=== PATIENT | female | born 1940 | race Caucasian/White ===

== ENCOUNTER 2020-07-28 09:08 | Outpatient (REF) | payer MEDICARE, SELFPAY ==
--- NOTE | 2020-07-28 09:32 | US_ITS ---
EXAMINATION: US VENOUS ULTRASOUND WITH DOPPLER LOWER EXTREMITY, LEFT CLINICAL INFORMATION: M79.662 - Pain in left lower leg. Injury late May region of mid calf with some palpable fullness. Assess for occult DVT. COMPARISON: None TECHNIQUE: Ultrasound of the deep veins is performed from the hip to the calf with compression sonography and color and pulse Doppler assessment. Spectral analysis with color-flow imaging is performed. FINDINGS: There is normal venous compression and respiratory variation and augmented flow. The visualized common femoral vein, superficial femoral vein, profunda femoral vein, popliteal vein, and the trifurcation region shows no evidence of deep venous thrombosis. There is no popliteal fossa cyst. No edema tracking in soft tissue planes. In the region of palpable fullness posterior mid calf, there is a isolated nonspecific cystic area only 3 x 2 mm of doubtful significance, possibly sequela from the recent injury. US/US venous duplex LE LT IMPRESSION: No DVT demonstrated in the left lower extremity.
== END 2020-07-28 09:09 | disposition home or self-care (01) ==
LOC: HO.HMGCX 09:08
PROVIDERS: PCP Internal Medicine; Visit Provider Nurse Practitioner Family
DX: M79.662 Pain in left lower leg (principal)
CPT/HCPCS: 93971

== ENCOUNTER → 2020-11-23 15:25 | Outpatient (BNVA) | payer MEDICARE, SELFPAY | PROVIDERS: PCP Internal Medicine; Visit Provider Obstetrics & Gynecology | DX: N90.7 Vulvar cyst (principal) | CPT/HCPCS: 99212 ==

== ENCOUNTER 2021-04-11 14:23 | Outpatient (REF) | payer MEDICARE, SELFPAY ==
[2021-04-11 16:54] LABS: Blood Urea Nitrogen 19 mg/dL (9-16); Estimated Glomerular Filt Rate > 60
== END 2021-04-11 14:24 | disposition home or self-care (01) ==
LOC: HO.HMGCLDS 14:23
PROVIDERS: PCP Internal Medicine; Visit Provider Internal Medicine
DX: N39.0 Urinary tract infection, site not specified (principal)
CPT/HCPCS: 36415; 82565; 84520

== ENCOUNTER 2021-05-17 11:06 | Outpatient (REF) | payer MEDICARE, SELFPAY ==
--- NOTE | ~2021-05-17 | MR_ITS ---
EXAMINATION: MR ABDOMEN WITHOUT AND WITH CONTRAST CLINICAL INFORMATION: Melanoma of the right eye. COMPARISON: Previous MRI April 2020, CT of the abdomen and pelvis March 2014 and ultrasound August 2019. TECHNIQUE: MR abdomen was performed without and with use of 6 mL intravenous Gadavist gadolinium contrast. Postcontrast images are performed in multiphase dynamic sequences. Imaging was performed in 3 planes. FINDINGS: LUNG BASES: The visualized lung bases are unremarkable. LIVER, GALLBLADDER, AND BILIARY TREE: There is slight signal loss in the liver on out of phase sequences suggestive of mild fatty infiltration. The liver is normal in size and shape. There are several small liver cysts, largest measuring 7 mm cyst in the medial segment of the left lobe of the liver that are stable. No other liver lesion is seen. The gallbladder has been removed. There is no intra or extrahepatic biliary duct dilatation. PANCREAS: There is a tiny cyst in the posterior body of the pancreas measuring 4 mm that is stable. The pancreas is otherwise unremarkable. The main pancreatic duct is normal in size. SPLEEN: Normal. ADRENAL GLANDS: Normal. KIDNEYS AND URETERS: There are two 1 cm cysts in the left kidney. The kidneys are otherwise unremarkable. GASTROINTESTINAL TRACT: The visualized small and large bowel is unremarkable. No bowel obstruction. No ascites or fluid collection. ABDOMINAL WALL: No significant hernia is appreciated. LYMPH NODES: No lymphadenopathy. VASCULAR: Unremarkable. OSSEOUS STRUCTURES: Marrow signal normal. MR/MR abdomen wo/w con IMPRESSION: Stable small cysts in the liver, pancreas and left kidney.
== END 2021-05-17 11:07 | disposition home or self-care (01) ==
LOC: HO.MRI 11:06
PROVIDERS: Visit Provider Internal Medicine
DX: C69.30 Malignant neoplasm of unspecified choroid (principal)
CPT/HCPCS: 74183; A9585

== ENCOUNTER → 2021-06-28 10:24 | Outpatient (BNVA) | payer MEDICARE, SELFPAY | PROVIDERS: PCP Internal Medicine; Visit Provider Internal Medicine | DX: M81.0 Age-related osteoporosis without current pathological fracture (principal); E04.2 Nontoxic multinodular goiter; E55.9 Vitamin D deficiency, unspecified | CPT/HCPCS: 99212 ==

== ENCOUNTER 2021-06-29 12:24 | Outpatient (REF) | payer MEDICARE, SELFPAY ==
[2021-06-29 14:11] LABS: Alanine Aminotransferase 13 U/L (0-31); Albumin Level 4.4 g/dL (3.5-5.0); Alkaline Phosphatase 57 U/L (39-117); Anion Gap 9 (12-20); Aspartate Amino Transferase 17 U/L (5-31); Bilirubin Total 0.6 mg/dL (0.0-1.0); Blood Urea Nitrogen 18 mg/dL (9-16); Calcium 9.5 mg/dL (8.4-10.2); Carbon Dioxide 29 mmol/L (22-29); Chloride 106 mmol/L (96-108); Estimated Glomerular Filt Rate > 60; Glucose Random 103 mg/dL (60-115); Phosphorus 3.7 mg/dL (2.7-4.5); Potassium 4.3 mmol/L (3.3-5.1); Sodium 140 mmol/L (135-145); Total Protein 6.8 g/dL (6.5-8.0)
[2021-06-29 14:35] LABS: Free T4 (Free Thyroxine) 0.98 ng/dL (0.71-1.85); Thyroid Stimulating Hormone 0.86 uIU/mL (0.32-4.0); Vitamin D 25-OH Total 44.8 ng/mL (>30)
[2021-06-30 09:32] LABS: Calcium (PTHI) 9.5 mg/dL (8.6-10.4); PTHI 29 pg/mL (14-64)
[2021-07-03 13:02] LABS: Prot Elec - Albumin 4.2 g/dL (3.8-4.8); Prot Elec - Alpha1 0.2 g/dL (0.2-0.3); Prot Elec - Alpha2 0.7 g/dL (0.5-0.9); Prot Elec - Beta 1 0.4 g/dL (0.4-0.6); Prot Elec - Beta 2 0.4 g/dL (0.2-0.5); Prot Elec - Gamma 0.7 g/dL (0.8-1.7); Prot Elec - Total Protein 6.7 g/dL (6.1-8.1)
[2021-07-04 15:42] LABS: Alkaline Phosphatase Bone 9.2 mcg/L (see note)
== END 2021-06-29 12:25 | disposition home or self-care (01) ==
LOC: HO.HMGCLDS 12:24
PROVIDERS: PCP Internal Medicine; Visit Provider Internal Medicine
DX: M81.0 Age-related osteoporosis without current pathological fracture (principal); E04.2 Nontoxic multinodular goiter; E55.9 Vitamin D deficiency, unspecified
CPT/HCPCS: 36415; 80053; 82306; 83970; 84075; 84100; 84165; 84439; 84443

== ENCOUNTER 2021-07-04 13:58 | Outpatient (REF) | payer MEDICARE, SELFPAY ==
[2021-07-04 17:22] LABS: Creatinine, mg/dL 42.67
[2021-07-04 18:23] LABS: Creatinine, 24Hr Urine 0.8 G/Day (1.0-2.0); Total Volume 24 Hour Urine 1900 mL
[2021-07-06 17:16] LABS: Calcium, 24 Hr Urine 336 mg/24 h; Calcium/Creatinine Ratio 377 mg/g creat (30-275); Creatinine 24Hr Urine 0.89 g/24 h (0.50-2.15)
[2021-07-11 16:41] LABS: N-Telopeptide 38 (see note); NTXCreaRU 44 mg/dL (20-275)
== END 2021-07-04 13:59 | disposition home or self-care (01) ==
LOC: HO.HMGCLNP 13:58
PROVIDERS: Visit Provider Internal Medicine
DX: M81.0 Age-related osteoporosis without current pathological fracture (principal)
CPT/HCPCS: 82340; 82523; 82570

== ENCOUNTER 2021-07-17 10:50 | Outpatient (REF) | payer MEDICARE, SELFPAY ==
[2021-07-17 14:15] LABS: Albumin Level 4.3 g/dL (3.5-5.0); Calcium 9.4 mg/dL (8.4-10.2); Phosphorus 3.5 mg/dL (2.7-4.5)
[2021-07-17 14:39] LABS: Vitamin D 25-OH Total 47.7 ng/mL (>30)
[2021-07-18 14:31] LABS: Calcium (PTHI) 9.2 mg/dL (8.6-10.4); PTHI 25 pg/mL (14-64)
== END 2021-07-17 10:51 | disposition home or self-care (01) ==
LOC: HO.HMGCLDS 10:50
PROVIDERS: PCP Internal Medicine; Visit Provider Internal Medicine
DX: M81.0 Age-related osteoporosis without current pathological fracture (principal); E55.9 Vitamin D deficiency, unspecified
CPT/HCPCS: 36415; 82040; 82306; 82310; 83970; 84100

== ENCOUNTER 2021-07-25 11:21 | Outpatient (REF) | payer MEDICARE, SELFPAY ==
--- NOTE | ~2021-07-25 | US_ITS ---
EXAMINATION: US THYROID CLINICAL INFORMATION: Multinodular goiter. COMPARISON: Ultrasound thyroid soft tissue neck 10/19/2019. TECHNIQUE: Linear transducer grayscale and color Doppler examination with attention to the region of the thyroid. FINDINGS: SIZE: Measurements of the thyroid lobes and nodules are given in sagittal, anteroposterior and transverse dimensions respectively. Right Thyroid Lobe: 5.1 x 1.9 x 1.7 cm, volume 8.6 mL. Previously 5.5 x 1.9 x 1.9 cm, volume 10.4 mL. Parenchyma: The gland echotexture is homogeneous. Thyroid vascularity is increased. Left Thyroid Lobe: 7.7 x 3.5 x 3.6 cm, volume 50.7 mL. Previously 7.0 x 3.4 x 2.2 cm, volume 27.6 mL. Parenchyma: The gland echotexture is homogeneous. Thyroid vascularity is increased. Isthmus: 1.2 cm in maximum AP dimension. Previously 1.2 cm. Estimated total number of nodules greater than or equal to 1 cm: 2. [employer] nodules are described as follows: 1. Location: Isthmus. Size: 1.3 x 0.6 x 1.3 cm, volume 0.53 mL. Previously: 1.0 x 0.9 x 1.2 cm, volume 0.56 mL. Nodule characteristics: Composition: Solid (2). Echogenicity: Isoechoic (1). Shape: Not taller than wide (0). Margins: Ill-defined (0). Echogenic Foci: None (0). ACR TI-RADS total points: 3 ACR TI-RADS category: 3 Significant change in size (>/= 20% in 2 dimensions and minimal increase of 2 mm or 50% or greater increase in volume): No Change in features: No Change in ACR TI-RADS risk category: No 2. Location: Left mid/lower. Size: 4.6 x 3.4 x 4.3 cm, volume 34.4 mL. Previously: 4.2 x 3.4 x 4.0 cm, volume 29.9 mL. Nodule characteristics: Composition: Mixed cystic and solid (1). Echogenicity: Cannot be determined (1). Shape: Not taller than wide (0). Margins: Lobulated (2). Echogenic Foci: None (0). ACR TI-RADS total points: 4 ACR TI-RADS category: 4 Significant change in size (>/= 20% in 2 dimensions and minimal increase of 2 mm or 50% or greater increase in volume): Yes Change in features: No Change in ACR TI-RADS risk category: No 3. Location: Right mid lateral. Size: 0.7 x 0.4 x 0.5 cm, volume 0.08 mL. Previously: New. Nodule characteristics: Composition: Spongiform (0). ACR TI-RADS total points: 0 ACR TI-RADS category: 1 NODES: No lymphadenopathy is seen in the tissue surrounding the thyroid gland. US/US thyroid IMPRESSION: There is redemonstration of a dominant mixed solid and cystic mass in the mid to lower pole of the left lobe measuring up to 4.6 cm, previously up to 4.2 cm (TI-RADS 4). Recommend tissue sampling if not already obtained. A 1.3 cm isoechoic nodule with flow in the isthmus is unchanged (TI-RADS 3). This can be follow-up with imaging. No new nodules. ACR TI-RADS RECOMMENDATION REFERENCE: Ultrasound-guided fine-needle aspiration, followup ultrasound, no further follow up. * TR1 (0 point) and TR 2 (2 points): No FNA or follow up * TR3 (3 points): FNA if more than or equal to 2.5 cm in maximum dimension, followup ultrasound in 1, 3 and 5 years if 1.5 to 2.4 cm in maximum dimension. * TR4 (4-6 points): FNA if more than or equal to 1.5 cm in maximum dimension, followup ultrasound in 1, 2, 3 and 5 years if 1 to 1.4 cm in maximum dimension. * TR5 (more than or equal to 7 points): FNA if more than or equal to 1 cm in maximum dimension, followup ultrasound every year for 5 years if 0.5 to 0.9 cm in maximum dimension. * TR3, TR4 or TR5 nodules that are below the size threshold for follow up receive no follow up.
== END 2021-07-25 11:22 | disposition home or self-care (01) ==
LOC: HO.HMGCX 11:21
PROVIDERS: PCP Internal Medicine; Visit Provider Internal Medicine
DX: E04.2 Nontoxic multinodular goiter (principal)
CPT/HCPCS: 76536

== ENCOUNTER 2021-08-02 10:47 | Outpatient (REF) | payer MEDICARE, SELFPAY ==
--- NOTE | ~2021-08-02 | MM_ITS ---
EXAMINATION: BONE DENSITOMETRY CLINICAL INDICATION: Age-related osteoporosis without current pathological fracture. COMPARISON: This is the patient's baseline examination. TECHNIQUE: Using a [employer] DXA System (software version: 13.1) manufactured by [employer], dual-energy x-ray absorptiometry was performed of the lumbar spine, left hip, and left forearm radius 33%. The images are of good technical quality. Summary results are attached. FINDINGS: AP SPINE L1-L4: BMD 0.639 g/cm2, Z-score -2.5, T-score -4.5, osteoporosis. LEFT FEMUR, NECK: BMD 0.593 g/cm2, Z-score -0.9, T-score -3.2, osteoporosis. LEFT FEMUR, TOTAL: BMD 0.649 g/cm2, Z-score -0.7, T-score -2.8, osteoporosis. LEFT FOREARM RADIUS 33%: BMD 0.502 g/cm2, Z-score -1.6, T-score -4.3, osteoporosis. IDENTIFIED RISK FACTORS: Osteoporosis, hyperparathyroidism, height loss, family history (parental hip fracture). Early menopause, secondary osteoporosis, history of fracture (adult), hysterectomy. HISTORY OF FRACTURE: Femur/hip. MEDICATIONS: Calcium. MM/XR DEXA appendicular skeleton IMPRESSION: 1. DIAGNOSIS: Severe osteoporosis based on the lowest T-score value of -4.5 in the lumbar spine and fracture history applying World Health Organization criteria. 2. 10-YEAR FRACTURE RISK PREDICTION, FRAX: Major osteoporotic fracture (clinical spine, forearm, hip or shoulder) 37.1%. Hip fracture 15.6%. 3. Treatment Recommendations: NOF guidelines recommend consideration for treatment in postmenopausal women and men age 50 and older presenting with the following: -A hip or vertebral (clinical or morphometric) fracture. -T-score less than or equal to -2.5 at the femoral neck or spine after appropriate evaluation to exclude secondary causes. -Low bone mass at the hip or spine and a 10-year fracture probability by FRAX of greater than or equal to 3% for hip fracture or greater than or equal to 20% for major osteoporotic fracture based on the [place] adapted WHO algorithm. 4. Other Recommendations: All treatment decisions require clinical judgment and consideration of individual patient factors, including patient preferences, comorbidities, previous drug use, risk factors not captured in the FRAX model (e.g. frailty, falls, vitamin D deficiency, increased bone turnover, interval significant decline in bone density) and possible under or overestimation of fracture risk by FRAX. Additional medical evaluation for secondary cause of low bone mineral density may be appropriate. FUTURE SCAN RECOMMENDATION: People with diagnosed cases of osteoporosis or at high risk for fracture should have regular bone mineral density tests. For patients eligible for Medicare, routine testing is allowed once every 2 years. The testing frequency can be increased to one year for patients who have rapidly progressing disease, those who are receiving or discontinuing medical therapy to restore bone mass, or have additional risk factors.
== END 2021-08-02 10:48 | disposition home or self-care (01) ==
LOC: HO.MAMMO 10:47
PROVIDERS: Visit Provider Internal Medicine
DX: Z13.820 Encounter for screening for osteoporosis (principal); M81.0 Age-related osteoporosis without current pathological fracture; E21.3 Hyperparathyroidism, unspecified; Z78.0 Asymptomatic menopausal state; Z87.81 Personal history of (healed) traumatic fracture; Z79.899 Other long term (current) drug therapy
CPT/HCPCS: 77081

== ENCOUNTER → 2021-08-24 08:50 | Outpatient (BNVA) | payer MEDICARE, SELFPAY | PROVIDERS: PCP Internal Medicine; Visit Provider Internal Medicine ==

== ENCOUNTER 2021-09-22 09:23 | Emergency (ER) | payer MEDICARE, SELFPAY ==
[2021-09-22 09:37] VITALS: BP 164/79; PULSE 98; RESP 18; TEMP 36.8; O2SAT 18; BMI 23.0
--- NOTE | 2021-09-22 10:06 | ED_ITS ---
HPI - Eye Problem General Chief complaint: Eye Problems Stated complaint: Infected eye Time Seen by Provider: 09/22/21 10:06 History of Present Illness HPI Narrative: Patient complains of left eyelid redness and mild pain for the last 2 days no discharge from eye no eye pain no photophobia no vision change no vision loss Related Data Home Medications Medication Instructions Recorded Confirmed Bacillus coagulans 250 million cell PO 07/28/20 06/28/21 cell chewable tablet (Probiotic (B. coagulans)) apple cider vinegar 500 mg tablet mg PO 07/28/20 06/28/21 cranberry extract 500 mg tablet 1,000 mg PO TID 07/28/20 06/28/21 ginkgo biloba extract-Panax cap PO 07/28/20 06/28/21 ginseng root extract 60 mg-100 mg capsule vitamin B complex 1 cap PO DAILY 07/28/20 06/28/21 Previous Rx's Medication Instructions Recorded phenazopyridine 200 mg tablet 200 mg PO TID PRN 2 Days #6 tab 02/10/21 (Pyridium) [id number] 3.3 4 drp OTIC (EAR) LEFT TID 7 Days 05/08/21 mg-3 mg-10 mg-0.5 mg/mL ear #10 ml drops,susp (Cortisporin-TC) [id number]-jacsgretn-ztizcqzff 3.5 4 drp OTIC (EARS) Q8H 7 Days #10 ml 05/13/21 mg-10,000 unit/mL-1 % ear drops,susp pantoprazole 40 mg tablet,delayed 40 mg PO BID #180 tab 08/21/21 release cephalexin 500 mg tablet 500 mg PO Q8H 7 Days #21 tab 09/22/21 erythromycin 5 mg/gram (0.5 %) eye 0.5 inch OPHTHALMIC (EYE) TID 5 09/22/21 ointment Days #3.5 g Allergies Allergy/AdvReac Type Severity Reaction Status Date / Time aspirin [ASA] Allergy Intermediate TACHYCARDIA Verified 09/22/21 09:37 buspirone [From BuSpar] Allergy Unknown Stomach Verified 09/22/21 09:37 Upset Sulfa (Sulfonamide AdvReac Intermediate VOMITING Verified 09/22/21 09:37 Antibiotics) [SULFA(SULFONAMIDE ANTIBIOTICS)] Review of Systems Review of Systems: Positive for left upper eyelid redness Negatives are no fever no chills no dizziness weakness no headache no vision changes no loss of vision no blurry vision no photophobia no eye pain no discharge from eye, no runny nose no sore throat no cough no other rash Yes all other systems are reviewed and are negative [facility] Past Medical History Source: nursing notes reviewed Medical History Hip fracture, right Ingrown toenail of right foot Melanoma, choroid Multinodular goiter Osteoporosis Vitamin D deficiency Surgical History H/O colonoscopy Hx of cholecystectomy Family History Family History Father No problems noted. Mother No problems noted. Social History Social History Alcohol intake: never Patient Tobacco Use Status: Never used Tobacco Advance Directives: No Advance Directives Information Provided: Yes Physical Exam Vital Signs: Vital Signs: Last Vital Signs Temp 98.3 F 09/22/21 09:37 Pulse 98 09/22/21 09:37 Resp 18 09/22/21 09:37 BP 164/79 H 09/22/21 09:37 Pulse Ox 18 L 09/22/21 09:37 BMI result Body Mass Index 23.0 General appearance no acute distress The left eyelid says some redness with mild tenderness there is no redness extending beyond the left upper eyelid The conjunctiva are clear there is no redness or discharge, pupils equal round reactive to light extraocular motions are intact The visual acuity with correction is normal Neck is supple Respiratory no distress Extremities full range of motion x4 Course Course Course Narrative: Redness and tenderness of left upper eyelid with no invo lvement of the eye could be an early cellulitis so treated with Keflex and could be a blepharitis so treated with erythromycin ointment Discharge Plan Discharge Clinical Impression: Blepharitis of left eye, Cellulitis Patient Disposition: Home, Self-Care Additional Instructions: The redness and mild discomfort of your upper eyelid looks like a mild infection so we are treating with both a cream and a pill Return any time for spreading redness, any eye pain, vision loss, discharge from high fever, any worse condition or any concerns If not better by Saturday follow with your eye doctor Prescriptions: New cephalexin 500 mg tablet 500 mg PO Q8H 7 Days Qty: 21 RF: 0 erythromycin 5 mg/gram (0.5 %) ointment 0.5 inch ophthalmic (eye) TID 5 Days Qty: 3.5 RF: 0 No Action [id number]-wnpwvunhj-MS 3.5-10,000-1 mg/mL-unit/mL-% drops,suspension 4 drp otic (ears) Q8H 7 Days Qty: 10 RF: 0 pantoprazole 40 mg tablet,delayed release (DR/EC) 40 mg PO BID Qty: 180 RF: 3 Probiotic (B. coagulans) 250 million cell tablet,chewable PO RF: 0 vitamin B complex Capsule 1 cap PO DAILY RF: 0 ginkgo biloba-Panax ginseng rt 60-100 mg capsule PO RF: 0 cranberry extract 500 mg tablet 1,000 mg PO TID RF: 0 apple cider vinegar 500 mg tablet PO RF: 0 phenazopyridine [Pyridium] 200 mg tablet 200 mg PO TID PRN (Reason: pain) 2 Days Qty: 6 RF: 0 Cortisporin-TC 3.3-3-10-0.5 mg/mL drops,suspension 4 drp otic (ear) left TID 7 Days Qty: 10 RF: 0 Referrals: Franky Romero [Physician] - 2 days Interventions: ED Discharge Assessment Last Done: 09/22/21 10:18 Discharge Date/Time: 09/22/21 10:18
== END 2021-09-22 10:18 | disposition home or self-care (01) ==
PROVIDERS: Emergency Provider Emergency Medicine; PCP Internal Medicine
DX: H01.004 Unspecified blepharitis left upper eyelid (principal); H00.034 Abscess of left upper eyelid; H57.12 Ocular pain, left eye
CPT/HCPCS: 99283

== ENCOUNTER → 2021-10-02 09:22 | Outpatient (BNVA) | payer MEDICARE, SELFPAY | PROVIDERS: PCP Internal Medicine; Visit Provider Internal Medicine | CPT/HCPCS: Q3014 ==

== ENCOUNTER 2021-11-09 10:56 | Outpatient (REF) | payer MEDICARE, SELFPAY ==
--- NOTE | 2021-11-09 11:35 | P.BOP_ITS ---
Brief Operative Note Date of Service: 11/09/21 Pre-op diagnosis: Multinodular Thyroid Procedure: This is doctor Heydi Timmons. This is an ultrasound-guided fine-needle aspiration report. Date of Examination: Indication: Multinodular Thyroid Porcedure: Procedure was explained to the patient. Alternatives, the risk and benefits were discussed. Written consent was obtained. A time-out was also obtained. After sterile preparation, fine-needle aspiration of a left mid pole 4.6 cm thyroid nodule was performed using direct ultrasound guidance to confirm accurate needle placement. a 22 guage needle was used to first drain the cystic component. 11 cc of serosanguinous fluid was aspirated and submitted for cytology. Three additional aspirations were made using 27 gauge needles. Samples were submitted for cytology. One pass was dedicated for [employer] sequencing waiter/waitress second class testing. Our attention was then turned to the isthmus. Fine-needle aspiration of a 1.4 cm isthmus thyroid nodule was performed using direct ultrasound guidance to confirm accurate needle placement. Three aspirations were made using 27 gauge needles. Samples were submitted for cytology. One pass was dedicated for [employer] Gene sequencing waiter/waitress second class testing. The patient tolerated the procedure well. Aftercare instructions were provided. Impression: Uncomplicated fine needle aspiration biopsy of a left mid pole 4.6 cm and an isthmus 1.3 cm thyroid nodule under ultrasound guidance. Surgeon: Heydi Timmons, DO Was an Director Of Nuclear Medicine used for this Procedure?: No Estimated blood loss (mL): 0
[2021-11-09] MEDS: Lidocaine HCl 1 % MPF 5 ML VIAL SUBCUT (12:07)
== END 2021-11-09 10:57 | disposition home or self-care (01) ==
LOC: HO.US 10:56
PROVIDERS: Visit Provider Internal Medicine
DX: E04.2 Nontoxic multinodular goiter (principal)
CPT/HCPCS: 10005; 10006; 88172; 88173; 88305

== ENCOUNTER 2021-11-13 13:01 | Outpatient (REF) | payer MEDICARE, SELFPAY ==
[2021-11-13 14:11] LABS: Alanine Aminotransferase 11 U/L (0-31); Albumin Level 4.3 g/dL (3.5-5.0); Alkaline Phosphatase 68 U/L (39-117); Anion Gap 10 (12-20); Aspartate Amino Transferase 16 U/L (5-31); Bilirubin Total 0.4 mg/dL (0.0-1.0); Blood Urea Nitrogen 17 mg/dL (9-16); Calcium 9.7 mg/dL (8.4-10.2); Carbon Dioxide 31 mmol/L (22-29); Chloride 103 mmol/L (96-108); Estimated Glomerular Filt Rate > 60; Glucose Random 123 mg/dL (60-115); Phosphorus 3.7 mg/dL (2.7-4.5); Potassium 3.8 mmol/L (3.3-5.1); Sodium 140 mmol/L (135-145); Total Protein 6.9 g/dL (6.5-8.0)
[2021-11-13 14:25] LABS: Creatinine, mg/dL 62.43
[2021-11-13 14:32] LABS: Thyroid Stimulating Hormone 0.69 uIU/mL (0.32-4.0); Vitamin D 25-OH Total 41.7 ng/mL (>30)
[2021-11-13 15:42] LABS: Creatinine, 24Hr Urine 0.8 G/Day (1.0-2.0); Total Volume 24 Hour Urine 1300 mL
[2021-11-14 13:02] LABS: Calcium (PTHI) 9.3 mg/dL (8.6-10.4); PTHI 40 pg/mL (14-64)
[2021-11-14 17:36] LABS: Calcium, 24 Hr Urine 367 mg/24 h; Calcium/Creatinine Ratio 448 mg/g creat (30-275); Creatinine 24Hr Urine 0.82 g/24 h (0.50-2.15)
[2021-11-16 22:42] LABS: Alkaline Phosphatase Bone 10.3 mcg/L (see note)
== END 2021-11-13 13:02 | disposition home or self-care (01) ==
LOC: HO.HMGCLDS 13:01
PROVIDERS: PCP Internal Medicine; Visit Provider Internal Medicine
DX: M81.0 Age-related osteoporosis without current pathological fracture (principal); E55.9 Vitamin D deficiency, unspecified
CPT/HCPCS: 36415; 80053; 82306; 82340; 82570; 83970; 84075; 84100; 84439; 84443

== ENCOUNTER → 2021-11-23 10:04 | Outpatient (BNVA) | payer MEDICARE, SELFPAY | PROVIDERS: PCP Internal Medicine; Visit Provider Internal Medicine | DX: Z13.89 Encounter for screening for other disorder (principal) | CPT/HCPCS: Q3014 ==

== ENCOUNTER 2022-02-26 14:25 | Outpatient (REF) | payer MEDICARE, SELFPAY ==
[2022-02-26 16:45] LABS: Alanine Aminotransferase 14 U/L (0-31); Albumin Level 4.3 g/dL (3.5-5.0); Alkaline Phosphatase 71 U/L (39-117); Anion Gap 13 (12-20); Aspartate Amino Transferase 15 U/L (5-31); Bilirubin Total 0.4 mg/dL (0.0-1.0); Blood Urea Nitrogen 18 mg/dL (9-16); Calcium 9.6 mg/dL (8.4-10.2); Carbon Dioxide 29 mmol/L (22-29); Chloride 103 mmol/L (96-108); Estimated Glomerular Filt Rate > 60; Glucose Random 88 mg/dL (60-115); Phosphorus 3.7 mg/dL (2.7-4.5); Potassium 3.6 mmol/L (3.3-5.1); Sodium 141 mmol/L (135-145)
[2022-02-26 17:05] LABS: Vitamin D 25-OH Total 39.1 ng/mL (>30)
[2022-02-27 14:47] LABS: Calcium (PTHI) 9.5 mg/dL (8.6-10.4); PTHI 31 pg/mL (16-77)
== END 2022-02-26 14:26 | disposition home or self-care (01) ==
LOC: HO.HMGCLDS 14:25
PROVIDERS: PCP Internal Medicine; Visit Provider Internal Medicine
DX: R82.994 Hypercalciuria (principal); E55.9 Vitamin D deficiency, unspecified
CPT/HCPCS: 36415; 80053; 82306; 83970; 84100

== ENCOUNTER 2022-02-28 12:49 | Outpatient (REF) | payer MEDICARE, SELFPAY ==
[2022-02-28 14:12] LABS: Total Volume 24 Hour Urine 1900 mL
[2022-02-28 14:43] LABS: Creatinine, 24Hr Urine 0.9 G/Day (1.0-2.0); Creatinine, mg/dL 49.49
[2022-03-02 18:32] LABS: Calcium, 24 Hr Urine 329 mg/24 h; Calcium/Creatinine Ratio 333 mg/g creat (30-275); Creatinine 24Hr Urine 0.99 g/24 h (0.50-2.15)
== END 2022-02-28 12:50 | disposition home or self-care (01) ==
LOC: HO.HMGCLNP 12:49
PROVIDERS: Internal Medicine; Visit Provider Internal Medicine
DX: R82.994 Hypercalciuria (principal)
CPT/HCPCS: 82340; 82570

== ENCOUNTER 2022-03-17 22:59 | Emergency (ER) | payer MEDICARE, SELFPAY ==
--- NOTE | ~2022-03-17 | XR_ITS ---
EXAMINATION: XR CHEST CLINICAL INFORMATION: Fever. COMPARISON: Chest 03/10/2020 TECHNIQUE: Frontal view of the chest was obtained. FINDINGS: Normal appearance of the cardiomediastinal structures. Medium and coarse reticular opacities in a horizontal orientation are noted the left lung base. Similar findings are present on the comparison exam and may represent minimal parenchymal scarring and/or linear atelectasis. No effusions or pneumothoraces. 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 Diffuse osteopenia. XR/XR chest 1V IMPRESSION: *No acute cardiopulmonary abnormalities.
[2022-03-17 23:13] VITALS: BP 138/80; PULSE 116; O2SAT 95
[2022-03-17 23:15] VITALS: BP 140/75; PULSE 107; RESP 18; TEMP 37.3; O2SAT 94; BMI 24.5
--- NOTE | 2022-03-17 23:21 | ECG_ITS ---
Test Reason : cp Blood Pressure : / mmHG Vent. Rate : 107 BPM Atrial Rate : 107 BPM P-R Int : 146 ms QRS Dur : 064 ms QT Int : 346 ms P-R-T Axes : 043 -13 022 degrees QTc Int : 461 ms Sinus tachycardia Nonspecific ST and T wave abnormality Borderline ECG When compared with ECG of 10-MAR-2020 13:48, No significant change was found Referred By: Farhana Velasco Electronically Signed By:BRADEN MANN
[2022-03-17 23:40] VITALS: TEMP 37.7
--- NOTE | 2022-03-17 23:40 | ED.FEVER ---
HPI - Fever General Chief Complaint: Fever Stated Complaint: F/V Time Seen by Provider: 03/17/22 23:20 Source: patient Mode of arrival: EMS Limitations: no limitations History of Present Illness HPI Narrative: 81 yo female with hx of osteoporosis, HTN here with c/o URI symptoms x 1 day became nervous because she had a fever at home, was hot/flushed, incontinent of urine. She is staying with someone and that person has a cough. The patient is vaccinated against covid/flu. She denies travel. She did not take any medications at home as she has felt nauseated. She denies GI symptoms such as n/v/d. Patient is vaccinated x 3 for COVID. MD elicited complaint: fever and malaise Onset (ago): hour(s) (last several ) Context: sick contacts (visitor has cough) Exacerbating factors: nothing Relieving factors: nothing Associated symptoms: chills, rhinorrhea, cough, nausea and other (urinary incontinence) Treatments prior to arrival fever: none Related Data Home Medications Medication Instructions Recorded Confirmed Bacillus coagulans 250 million cell PO 07/28/20 11/23/21 cell chewable tablet (Probiotic (B. coagulans)) apple cider vinegar 500 mg tablet mg PO 07/28/20 11/23/21 cranberry extract 500 mg tablet 1,000 mg PO TID 07/28/20 11/23/21 ginkgo biloba extract-Panax cap PO 07/28/20 11/23/21 ginseng root extract 60 mg-100 mg capsule vitamin B complex 1 cap PO DAILY 07/28/20 11/23/21 Previous Rx's Medication Instructions Recorded phenazopyridine 200 mg tablet 200 mg PO TID PRN pain 2 days #6 02/10/21 (Pyridium) tabs jujbdsvx-kxxaxj-UJ-thonzonm 3.3 4 drp otic (ear) left TID 7 days 05/08/21 mg-3 mg-10 mg-0.5 mg/mL ear #10 mL drops,susp (Cortisporin-TC) jjbnwimd-caakewfzh-tlyouhipp 3.5 4 drp otic (ears) Q8H 7 days #10 mL 05/13/21 mg-10,000 unit/mL-1 % ear drops,susp pantoprazole 40 mg tablet,delayed 40 mg PO BID #180 tabs 08/21/21 release erythromycin 5 mg/gram (0.5 %) eye 0.5 inch ophthalmic (eye) TID 5 09/22/21 ointment days #3.5 grams hydrochlorothiazide 12.5 mg tablet 12.5 mg PO DAILY 30 days #30 tabs 11/23/21 ondansetron 4 mg disintegrating 4 mg PO Q8H PRN nausea and 03/18/22 tablet vomiting #20 tabs Allergies Allergy/AdvReac Type Severity Reaction Status Date / Time aspirin [ASA] Allergy Intermediate TACHYCARDIA Verified 03/07/22 14:42 buspirone [From BuSpar] Allergy Unknown Stomach Verified 03/07/22 14:42 Upset Sulfa (Sulfonamide AdvReac Intermediate VOMITING Verified 03/07/22 14:42 Antibiotics) [SULFA(SULFONAMIDE ANTIBIOTICS)] Review of Systems Review of Systems: Constitutional : pos Fever, pos Chills, pos Fatigue, pos Malaise ENT/Mouth : No sore throat, pos Rhinorrhea Eyes: No Eye Pain, No Swelling, No Redness Cardiovascular : No Chest Pain, No SOB Respiratory : pos Cough, No Sputum, No Wheezing Gastrointestinal : pos Nausea, No Vomiting, No Diarrhea, No Constipation, No abdominal Pain, No Hematochezia, No Melena Genitourinary : No Dysuria, No Urinary Frequency, No Hematuria, Musculoskeletal : No joint pain, No Myalgias, No Joint Swelling Skin : No Skin Lesions, No rash Neuro : pos Weakness, No Numbness, No Dizziness, No Headache Psych : No Anxiety/Panic, No Depression Heme/Lymph: No Bruising, No Bleeding,No Lymphadenopathy Endocrine : No Polyuria, No Polydipsia All other systems reviewed and are negative [facility] Past Medical History Attestation statement: The following information was validated with the patient. Medical History Hip fracture, right Melanoma, choroid Surgical History H/O colonoscopy Hx of cholecystectomy Family History Family History Father No problems noted. Mother No problems noted. Social History Social History Alcohol intake: never Patient Tobacco Use Status: Never used Tobacco Use of substances other than those prescribed or required for medical reasons: No Advance Directives: No Physical Exam Vital Signs: Vital Signs: Last Vital Signs Temp 99.8 F 03/17/22 23:40 Pulse 107 H 03/17/22 23:15 Resp 18 03/17/22 23:15 BP 140/75 H 03/17/22 23:15 Pulse Ox 94 03/17/22 23:15 O2 Del Method 03/17/22 23:40 BMI result Body Mass Index 24.5 Appearance: Alert. Oriented X3. No acute distress. Eyes: Pupils equal, round and reactive to light. ENT: Pharynx normal. Neck: Normal inspection. Neck supple. CVS: tachycardic heart rate and rhythm. Pulses normal. Respiratory: No respiratory distress. Breath sounds normal. Abdomen: Soft and non-tender. Skin: Skin warm and dry. Normal skin color. Normal skin turgor. Extremities: No lower extremity edema. No calf ttp Neuro: Oriented X 3. No motor deficit. No sensory deficit. Course Course Course Narrative: no COVID pneumonia, able to tolerate PO here, will refer for mAb if she wants not toxic, no O2 requirements no COVID pneumonia no CP/SOB. walking O2 sat 95-96% stable for DC at this time MDM - Fever MDM Narrative Medical decision making narrative: 81 yo female with hx of osteoporosis, HTN here with c/o URI symptoms x 1 day became nervous because she had a fever at home, was hot/flushed, incontinent of urine. At this time will obtain labs, UA, CXR, PO tylenol and gentle fluids/zofran with empiric ceftriaxone. Dispo per results and findings. Lab Data Result diagrams: 03/17/22 23:49 03/17/22 23:49 Labs: Lab Results 03/17/22 03/17/22 03/17/22 Range/Units 23:49 23:49 23:49 WBC 7.9 (4.8-10.8) X10*3/uL RBC 4.20 (4.20-5.50) X10*6/uL Hgb 12.4 (12.0-16.0) g/dl Hct 37.6 (37.0-47.0) % MCV 89.5 (80.0-98.0) fL MCH 29.5 (27.0-33.0) pg MCHC 33.0 (31.0-35.0) g/dl RDW 13.2 (11.0-16.0) % Plt Count 240 (160-400) X10*3/uL MPV 9.4 (9.4-12.3) fL Immature Gran % (Auto) 0.1 (0.0-0.4) % Neut % (Auto) 84.6 H (45-73) % Lymph % (Auto) 8.9 L (20-40) % [place] % (Auto) 6.1 (2-11) % Eos % (Auto) 0.0 (0-4) % Baso % (Auto) 0.3 (0-2) % Lymph # (Auto) 0.7 L (1.2-4.9) X10*3/uL [place] # (Auto) 0.5 (0.1-1.2) X10*3/uL Eos # (Auto) 0.0 (0.0-0.4) X10*3/uL Baso # (Auto) 0.0 (0.0-0.2) X10*3/uL Abs Immat Gran (auto) 0.01 (0.00-0.03) X10*3/uL Absolute Neuts (auto) 6.7 (2.0-8.3) x10*3/uL Absolute Nucleated RBC 0.000 (0.0-0.012) X10*3/uL Nucleated RBC % (auto) 0.0 (0.0-0.2) /100WBC Sodium 138 (135-145) mmol/L Potassium 3.5 (3.3-5.1) mmol/L Chloride 101 (96-108) mmol/L Carbon Dioxide 27 (22-29) mmol/L Anion Gap 14 (12-20) BUN 15 (9-16) mg/dL Creatinine 0.74 (0.5-1.4) mg/dL Estim Creat Clear Calc 50.0 Estimated GFR > 60 Random Glucose 134 H (60-115) mg/dL Lactic Acid (0.5-2.0) mmol/L Calcium 9.1 (8.4-10.2) mg/dL Magnesium 1.9 (1.6-2.6) mg/dL Total Bilirubin 0.5 (0.0-1.0) mg/dL Direct Bilirubin 0.2 (0.0-0.5) mg/dL AST 18 (5-31) U/L ALT 14 (0-31) U/L Alkaline Phosphatase 69 (39-117) U/L Troponin I High Sens 3.5 (<3.5-17.0) ng/L Total Protein 6.9 (6.5-8.0) g/dL Albumin 4.4 (3.5-5.0) g/dL Lipase 17 (8-78) U/L Influenza Type A (PCR) (Negative) Influenza Type B (PCR) (Negative) RSV RNA Qual (PCR) (Negative) SARS-CoV-2 RNA (RT-PCR) (Negative) 03/17/22 03/17/22 Range/Units 23:49 23:50 WBC (4.8-10.8) X10*3/uL RBC (4.20-5.50) X10*6/uL Hgb (12.0-16.0) g/dl Hct (37.0-47.0) % MCV (80.0-98.0) fL MCH (27.0-33.0) pg MCHC (31.0-35.0) g/dl RDW (11.0-16.0) % Plt Count (160-400) X10*3/uL MPV (9.4-12.3) fL Immature Gran % (Auto) (0.0-0.4) % Neut % (Auto) (45-73) % Lymph % (Auto) (20-40) % [place] % (Auto) (2-11) % Eos % (Auto) (0-4) % Baso % (Auto) (0-2) % Lymph # (Auto) (1.2-4.9) X10*3/uL [place] # (Auto) (0.1-1.2) X10*3/uL Eos # (Auto) (0.0-0.4) X10*3/uL Baso # (Auto) (0.0-0.2) X10*3/uL Abs Immat Gran (auto) (0.00-0.03) X10*3/uL Absolute Neuts (auto) (2.0-8.3) x10*3/uL Absolute Nucleated RBC (0.0-0.012) X10*3/uL Nucleated RBC % (auto) (0.0-0.2) /100WBC Sodium (135-145) mmol/L Potassium (3.3-5.1) mmol/L Chloride (96-108) mmol/L Carbon Dioxide (22-29) mmol/L Anion Gap (12-20) BUN (9-16) mg/dL Creatinine (0.5-1.4) mg/dL Estim Creat Clear Calc Estimated GFR Random Glucose (60-115) mg/dL Lactic Acid 0.9 (0.5-2.0) mmol/L Calcium (8.4-10.2) mg/dL Magnesium (1.6-2.6) mg/dL Total Bilirubin (0.0-1.0) mg/dL Direct Bilirubin (0.0-0.5) mg/dL AST (5-31) U/L ALT (0-31) U/L Alkaline Phosphatase (39-117) U/L Troponin I High Sens (<3.5-17.0) ng/L Total Protein (6.5-8.0) g/dL Albumin (3.5-5.0) g/dL Lipase (8-78) U/L Influenza Type A (PCR) NEGATIVE (Negative) Influenza Type B (PCR) NEGATIVE (Negative) RSV RNA Qual (PCR) NEGATIVE (Negative) SARS-CoV-2 RNA (RT-PCR) POSITIVE A (Negative) ECG Data ECG #1: Attestation: I personally reviewed and interpreted this ECG as follows: ECG interpretation date: 03/17/22 ECG interpretation time: 23:41 Interpretation: Rate: 107 Rhythm: sinus tachycardia [place]: left Normal P waves. Normal EDUARD. Normal QRS complex. ST T wave : normal no JUNIOR qTC: normal prior studies: no acute ischemia The study has been interpreted contemporaneously by me. . Discharge Plan Discharge Clinical Impression: COVID-19 Patient Disposition: Home, Self-Care Instructions: COVID-19 (Coronavirus Disease 2019) (ED) Additional Instructions: return to ED for any worsening symptoms or concerns you do not have COVID pneumonia on chest xray your walking oxygen saturations were normal at 95%, we referred you to [facility] for possible infusions to help you with your symptoms if you become so short of breath you cannot walk to the bathroom please seek immediate medical care take tylenol every 4 to 6 hours as needed for fevers. Prescriptions: New ondansetron 4 mg tablet,disintegrating 4 mg PO Q8H PRN (Reason: nausea and vomiting) Qty: 20 0RF No Action gsfxtbye-fiudcrowy-WQ 3.5-10,000-1 mg/mL-unit/mL-% drops,suspension 4 drp otic (ears) Q8H 7 Days Qty: 10 0RF pantoprazole 40 mg tablet,delayed release (DR/EC) 40 mg PO BID Qty: 180 3RF erythromycin 5 mg/gram (0.5 %) ointment 0.5 inch ophthalmic (eye) TID 5 Days Qty: 3.5 0RF Probiotic (B. coagulans) 250 million cell tablet,chewable PO vitamin B complex Capsule 1 cap PO DAILY ginkgo biloba-Panax ginseng rt 60-100 mg capsule PO cranberry extract 500 mg tablet 1,000 mg PO TID Rx Instructions: administer with meals apple cider vinegar 500 mg tablet PO phenazopyridine [Pyridium] 200 mg tablet 200 mg PO TID PRN (Reason: pain) 2 Days Qty: 6 0RF Cortisporin-TC 3.3-3-10-0.5 mg/mL drops,suspension 4 drp otic (ear) left TID 7 Days Qty: 10 0RF hydrochlorothiazide 12.5 mg tablet 12.5 mg PO DAILY 30 Days Qty: 30 3RF
[2022-03-17 23:56] LABS: Basophils Percent Auto 0.3 % (0-2); Hematocrit 37.6 % (37.0-47.0); Hemoglobin 12.4 g/dl (12.0-16.0); Imm Gran Abs Auto 0.01 X10*3/uL (0.00-0.03); Imm Gran Pct Auto 0.1 % (0.0-0.4); Lymphocytes Absolute Auto 0.7 X10*3/uL (1.2-4.9); Lymphocytes Percent Auto 8.9 % (20-40); MANUAL DIFF FLAG NO; Mean Corpuscular Hemoglobin 29.5 pg (27.0-33.0); Mean Corpuscular Volume 89.5 fL (80.0-98.0); Mean Platelet Volume 9.4 fL (9.4-12.3); Monocytes Absolute Auto 0.5 X10*3/uL (0.1-1.2); Monocytes Percent Auto 6.1 % (2-11); Neutrophils Absolute Auto 6.7 x10*3/uL (2.0-8.3); Neutrophils Percent Auto 84.6 % (45-73); Platelet Count 240 X10*3/uL (160-400); Red Cell Distribution Width 13.2 % (11.0-16.0); White Blood Count 7.9 X10*3/uL (4.8-10.8)
[2022-03-17] MEDS: 0.9 % Sodium Chloride 500 ML IV (23:56)
[2022-03-18] MEDS: ondansetron HCL 4 MG/2 ML VIAL IVPUSH (00:05)
[2022-03-18] MEDS: cefTRIAXone sodium 1 GM in 0.9 % Sodium Chloride 50 ML IV (00:05)
[2022-03-18] MEDS: Acetaminophen 325 MG TABLET 650 MG PO (00:05)
[2022-03-18 00:17] LABS: Lactic Acid 0.9 mmol/L (0.5-2.0)
[2022-03-18 00:23] LABS: Alanine Aminotransferase 14 U/L (0-31); Albumin Level 4.4 g/dL (3.5-5.0); Alkaline Phosphatase 69 U/L (39-117); Anion Gap 14 (12-20); Aspartate Amino Transferase 18 U/L (5-31); Bilirubin Direct 0.2 mg/dL (0.0-0.5); Bilirubin Total 0.5 mg/dL (0.0-1.0); Blood Urea Nitrogen 15 mg/dL (9-16); Calcium 9.1 mg/dL (8.4-10.2); Carbon Dioxide 27 mmol/L (22-29); Chloride 101 mmol/L (96-108); Estimated Glomerular Filt Rate > 60; Glucose Random 134 mg/dL (60-115); Lipase 17 U/L (8-78); Magnesium 1.9 mg/dL (1.6-2.6); Potassium 3.5 mmol/L (3.3-5.1); Sodium 138 mmol/L (135-145); Total Protein 6.9 g/dL (6.5-8.0)
[2022-03-18 00:28] LABS: Troponin-I High Sensitivity 3.5 ng/L (<3.5-17.0)
[2022-03-18 00:33] LABS: Influenza A PCR NEGATIVE (Negative); Influenza B PCR NEGATIVE (Negative); Resp Syncy Virus RNA Qual PCR NEGATIVE (Negative); SARS COV2 PCR INHOUSE POSITIVE (Negative)
[2022-03-18 02:56] LABS: Appearance Urine CLEAR; Color Urine YELLOW; Glucose Urine UA NEG (NEG); Leukocyte Esterase Urine NEG (NEG); Nitrite Urine NEG (NEG); PH 6.5 (5.0-8.0); Specific Gravity - Urine <= 1.005 (1.005-1.025); UACC Culture Trigger NO; Urine Blood 2+ (NEG); Urine Ketones 15 MG/DL (NEG); Urine Protein NEG (NEG-TRACE)
[2022-03-18 03:02] LABS: Bacteria Urine TRACE /LPF; Mucus Urine TRACE /LPF; Squamous Epithelial Cell Urine 1+ /LPF; WBC Urine 0-2 /HPF (0-4)
--- NOTE | 2022-03-18 03:49 | PC.NURSE ---
Report received and care assumed. RN made aware of patient awaiting dc, pt currently resting comfortably in stretcher with eyes closed, respirations even and unlabored without distress noted. Call mendosa in reach and RN will continue to monitor pending DC.
[2022-03-18 04:31] VITALS: BP 130/66; PULSE 85; RESP 18; TEMP 36.8; O2SAT 96
[2022-03-18 07:12] VITALS: BP 148/72; PULSE 89; RESP 18; TEMP 37; O2SAT 97
== END 2022-03-18 07:51 | disposition home or self-care (01) ==
PROVIDERS: Emergency Provider Emergency Medicine; PCP Internal Medicine
DX: U07.1 COVID-19 (principal); R50.9 Fever, unspecified; R11.2 Nausea with vomiting, unspecified; M54.50 Low back pain, unspecified; R06.02 Shortness of breath; Z79.899 Other long term (current) drug therapy
CPT/HCPCS: 0241U; 36415; 71045; 80048; 80076; 81001; 83605; 83690; 83735; 84484; 85025; 87040; 93005; 96365; 96375; 99284; J0696; J2405

== ENCOUNTER → 2022-03-22 08:37 | Outpatient (BNVA) | payer MEDICARE, SELFPAY | PROVIDERS: PCP Internal Medicine; Visit Provider Internal Medicine | DX: M81.0 Age-related osteoporosis without current pathological fracture (principal); R82.994 Hypercalciuria; E04.2 Nontoxic multinodular goiter; E55.9 Vitamin D deficiency, unspecified; Z79.899 Other long term (current) drug therapy | CPT/HCPCS: Q3014 ==

== ENCOUNTER 2022-04-06 13:41 | Emergency (ER) | payer MEDICARE, SELFPAY ==
--- NOTE | ~2022-04-06 | XR_ITS ---
EXAMINATION: XR LUMBOSACRAL SPINE CLINICAL INFORMATION: Low back pain status post injury COMPARISON: Lumbar spine radiographs 10/16/2019 TECHNIQUE: Three views of the lumbosacral spine. FINDINGS: Unchanged alignment with mild retrolisthesis at L2-L3. No additional subluxation. Interval development of mild superior endplate compression deformities of L2, L4, and L5. Unchanged inferior endplate compression deformity of L2 and superior endplate compression deformity of L3. Mild multilevel degenerative disc disease with small endplate osteophytes and minimal disc height loss. Lower lumbar facet arthrosis bilaterally. Generalized osteopenia. Mild vascular calcifications. Surgical clips project over the right upper quadrant. XR/XR lumbar spine 2-3V IMPRESSION: 1. Interval development of mild superior endplate compression deformities of L2, L4, and L5 since 2019, exact age uncertain though may be acute to subacute. 2. Unchanged alignment with mild retrolisthesis at L2-L3. 3. Mild multilevel degenerative disc disease in lower lumbar facet arthrosis.
[2022-04-06 13:55] VITALS: BP 138/70; BP 148/68; PULSE 100; PULSE 96; RESP 18; TEMP 36.9; O2SAT 98; BMI 24.5
--- NOTE | 2022-04-06 14:15 | ED_ITS ---
HPI - Back Pain/Injury General Chief Complaint: Back Pain/Injury Stated Complaint: LOWER BACK PAIN Time Seen by Provider: 04/06/22 13:56 Source: patient and EMS Mode of arrival: EMS Limitations: no limitations History of Present Illness HPI Narrative: 81 yo female with history of osteoporosis, vitamin D deficiency, goiter, who presents to the ER for evaluation of lower back pain. Patient says she has been suffering from lower back pain since Mother's Day but it got acutely worse 4 days ago after she stood up from using the toilet. She says the right lower portion of her back has been hurting more than usual since then. She rates her low back pain as an 8/10 pain that is constant, but does not radiate, increases in pain with movement. She denies any saddle paresthesias, urinary or bowel incontinence. She has not taken any medications to treat her pain today. She also reports that she has had constipation, last moved her bowels on Saturday. She also reports some suprapubic tenderness is occur that range now, denies any dysuria urinary frequency urinary urgency, or malodorous urine. She denies any fevers, chills, abdominal pain, nausea, vomiting, or diarrhea. She denies any other complaints or concerns at this time. MD elicited complaint: back pain Pertinent past history: prior back pain Onset (ago): day(s) Timing: progressively worsening Pain scale (0-10): 8 Similar Symptoms Previously: Yes Quality: sharp, stabbing and aching Location: lumbar spine and sacrum Radiation: none Exacerbating factors: movement Relieving factors: other (Ice) Context: bending Associated symptoms: denies other symptoms Work related injury: No Related Data Home Medications Medication Instructions Recorded Confirmed Bacillus coagulans 250 million cell PO 07/28/20 03/22/22 cell chewable tablet (Probiotic (B. coagulans)) apple cider vinegar 500 mg tablet mg PO 07/28/20 03/22/22 cranberry extract 500 mg tablet 1,000 mg PO TID 07/28/20 03/22/22 ginkgo biloba extract-Panax cap PO 07/28/20 03/22/22 ginseng root extract 60 mg-100 mg capsule vitamin B complex 1 cap PO DAILY 07/28/20 03/22/22 Previous Rx's Medication Instructions Recorded phenazopyridine 200 mg tablet 200 mg PO TID PRN pain 2 days #6 02/10/21 (Pyridium) tabs rjvasssz-ljfalm-CN-thonzonm 3.3 4 drp otic (ear) left TID 7 days 05/08/21 mg-3 mg-10 mg-0.5 mg/mL ear #10 mL drops,susp (Cortisporin-TC) chgbkldx-xevbvnrsn-twrbayapt 3.5 4 drp otic (ears) Q8H 7 days #10 mL 05/13/21 mg-10,000 unit/mL-1 % ear drops,susp pantoprazole 40 mg tablet,delayed 40 mg PO BID #180 tabs 08/21/21 release erythromycin 5 mg/gram (0.5 %) eye 0.5 inch ophthalmic (eye) TID 5 09/22/21 ointment days #3.5 grams ondansetron 4 mg disintegrating 4 mg PO Q8H PRN nausea and 03/18/22 tablet vomiting #20 tabs hydrochlorothiazide 12.5 mg tablet 12.5 mg PO DAILY 30 days #30 tabs 03/28/22 cyclobenzaprine 5 mg tablet 5 mg PO TID PRN muscle spasm #8 04/06/22 tabs Allergies Allergy/AdvReac Type Severity Reaction Status Date / Time aspirin [ASA] Allergy Intermediate TACHYCARDIA Verified 03/22/22 09:24 buspirone [From BuSpar] Allergy Unknown Stomach Verified 03/22/22 09:24 Upset Sulfa (Sulfonamide AdvReac Intermediate VOMITING Verified 03/22/22 09:24 Antibiotics) [SULFA(SULFONAMIDE ANTIBIOTICS)] [facility] Past Medical History Medical History Hip fracture, right Idiopathic hypercalciuria Ingrown toenail of right foot Melanoma, choroid Multinodular goiter Osteoporosis Vitamin D deficiency Surgical History H/O colonoscopy Hx of cholecystectomy Family History Family History Father No problems noted. Mother No problems noted. Social History Social History (Reviewed 03/22/22 @ 09:48 by BRUNILDA Car Alcohol intake: never Patient Tobacco Use Status: Never used Tobacco Advance Directives: Yes Advance Directives Information Provided: Yes Advance Directives on File: No Physical Exam Vital Signs: Vital Signs: Last Vital Signs Temp 98.4 F 04/06/22 13:55 Pulse 96 04/06/22 13:55 Resp 18 04/06/22 13:55 BP 148/68 H 04/06/22 13:55 Pulse Ox 98 04/06/22 13:55 O2 Del Method 04/06/22 13:55 BMI result Body Mass Index 24.5 Appearance: Alert. Oriented X3. No acute distress. Eyes: Pupils equal, round and reactive to light. ENT: Pharynx normal. Neck: Normal inspection. Neck supple. CVS: Normal heart rate and rhythm. Pulses normal. Respiratory: No respiratory distress. Breath sounds normal. Abdomen: Soft and nontender. +BS x4 Skin: Skin warm and dry. Normal skin color. Normal skin turgor. No rashes. Extremities: No c-spine, T-spine, and L-spine midline tenderness. No tenderness palpation overlying the paraspinous muscles. No pain to palpation over the sacral iliac joints. Positive straight leg raise on the left. DTRs are 2+. No lower extremity edema. Neuro: Oriented X 3. No motor deficit. No sensory deficit. Course Course Course Narrative: 81 yo female with history of osteoporosis, vitamin D deficiency, goiter, who presents to the ER for evaluation of lower back pain. No red flag symptoms of low back pain. Patient is mildly hypertensive at 148/68. All other vital signs are within normal limits. Plan: X-ray lumbar spine and urinalysis ordered. Patient will be medicated with Tylenol 975 mg and oxycodone 2.5 mg by mouth. Reevaluation(s) Reevaluation #1: Patient was re-evaluated. Just received PO pain medications. X-ray reviewed as interval development of mild superior endplate compression deformities of L2, L4 and L5 since 2019, exact age uncertain cell may be acute to subacute. Unchanged alignment with mildretrolisthesis at L2-L3. Mild multilevel degenerative disc disease in the lower lumbar facet arthrosis. Will re-evaluate pain. Time: 16:46 Reevaluation #2: Patient up independently to the bathroom with her cane. She was steady on her feet. Her pain is slightly improved from when she red to the emergency dep artment. We discussed the results of her x-ray and urinalysis. At this time she feels well enough to be discharged home. She lives at home with a friend. Will give a short trial of a low-dose muscle relaxer to help with her lumbar strain and spasm. She has an appointment with her PCP next month to follow-up. Comfortable with discharge home with outpatient follow-up. Time: 17:25 MDM - Back Pain/Injury Lab Data Labs: Lab Results 04/06/22 Range/Units 15:06 Urine Color YELLOW Urine Appearance CLEAR Urine pH 6.5 (5.0-8.0) Ur Specific [place] 1.010 (1.005-1.025) Urine Protein NEG (NEG-TRACE) MG/DL Urine Glucose (UA) NEG (NEG) MG/DL Urine Ketones NEG (NEG) MG/DL Urine Blood 1+ H (NEG) Urine Nitrite NEG (NEG) Ur Leukocyte Esterase NEG (NEG) Urine RBC 5-9 H (0) /HPF Urine WBC 0 (0-4) /HPF Ur Squamous Epith Cells 1+ /LPF Urine Bacteria NONE /LPF Imaging Data Lumbar x-ray: Attestation: I personally reviewed and interpreted this imaging study as follows: Radiologist's impression: EXAMINATION: XR LUMBOSACRAL SPINE CLINICAL INFORMATION: Low back pain status post injury COMPARISON: Lumbar spine radiographs 10/16/2019 TECHNIQUE: Three views of the lumbosacral spine. FINDINGS: Unchanged alignment with mild retrolisthesis at L2-L3. No additional subluxation. Interval development of mild superior endplate compression deformities of L2, L4, and L5. Unchanged inferior endplate compression deformity of L2 and superior endplate compression deformity of L3. Mild multilevel degenerative disc disease with small endplate osteophytes and minimal disc height loss. Lower lumbar facet arthrosis bilaterally. Generalized osteopenia. Mild vascular calcifications. Surgical clips project over the right upper quadrant. XR/XR lumbar spine 2-3V IMPRESSION: ? 1. Interval development of mild superior endplate compression deformities of L2, L4, and L5 since 2019, exact age uncertain though may be acute to subacute. 2. Unchanged alignment with mild retrolisthesis at L2-L3. 3. Mild multilevel degenerative disc disease in lower lumbar facet arthrosis. Discharge Plan Discharge Clinical Impression: Lumbar strain, Compression deformity of vertebra, Asymptomatic microscopic hematuria Patient Disposition: Home, Self-Care Instructions: Low Back Strain (ED), Lower Back Exercises (ED) Additional Instructions: Your xray today showed: 1. Interval development of mild superior endplate compression deformities of L2, L4, and L5 since 2019, exact age uncertain though may be acute to subacute. 2. Unchanged alignment with mild retrolisthesis at L2-L3. 3. Mild multilevel degenerative disc disease in lower lumbar facet arthrosis. Your urine test showed traces of blood - recommending following up with your do ctor for this. No bending, lifting or twisting. Use ice several times per day for 20 minutes at a time for the next 48 hours and then change to heat. Take medications as prescribed to help with pain and discomfort. Follow up with your Primary Care Doctor as soon as possible. If your pain worsens, if you develop new numbness, tingling, weakness, loss of function or incontinence call 911 or come back to the ER right away for evaluation. Prescriptions: New cyclobenzaprine 5 mg tablet 5 mg PO TID PRN (Reason: muscle spasm) Qty: 8 0RF No Action hjcmehtd-bqrnqqogn-WE 3.5-10,000-1 mg/mL-unit/mL-% drops,suspension 4 drp otic (ears) Q8H 7 Days Qty: 10 0RF pantoprazole 40 mg tablet,delayed release (DR/EC) 40 mg PO BID Qty: 180 3RF hydrochlorothiazide 12.5 mg tablet 12.5 mg PO DAILY 30 Days Qty: 30 3RF ondansetron 4 mg tablet,disintegrating 4 mg PO Q8H PRN (Reason: nausea and vomiting) Qty: 20 0RF erythromycin 5 mg/gram (0.5 %) ointment 0.5 inch ophthalmic (eye) TID 5 Days Qty: 3.5 0RF Probiotic (B. coagulans) 250 million cell tablet,chewable PO vitamin B complex Capsule 1 cap PO DAILY ginkgo biloba-Panax ginseng rt 60-100 mg capsule PO cranberry extract 500 mg tablet 1,000 mg PO TID Rx Instructions: administer with meals apple cider vinegar 500 mg tablet PO phenazopyridine [Pyridium] 200 mg tablet 200 mg PO TID PRN (Reason: pain) 2 Days Qty: 6 0RF Cortisporin-TC 3.3-3-10-0.5 mg/mL drops,suspension 4 drp otic (ear) left TID 7 Days Qty: 10 0RF
--- NOTE | 2022-04-06 14:29 | PC.NURSE ---
patient away for xray. will attempt to provide urine specimen upon return.
[2022-04-06 15:21] LABS: Appearance Urine CLEAR; Color Urine YELLOW; Glucose Urine UA NEG (NEG); Leukocyte Esterase Urine NEG (NEG); Nitrite Urine NEG (NEG); PH 6.5 (5.0-8.0); UACC Culture Trigger NO; Urine Blood 1+ (NEG); Urine Ketones NEG (NEG); Urine Protein NEG (NEG-TRACE)
[2022-04-06 15:28] LABS: Squamous Epithelial Cell Urine 1+ /LPF; WBC Urine 0 /HPF (0-4)
[2022-04-06] MEDS: Acetaminophen 325 MG TABLET 975 MG PO (16:34)
[2022-04-06] MEDS: oxyCODONE HCl Immed Release 5 MG TABLET 2.5 MG PO (16:34)
--- NOTE | 2022-04-06 16:49 | PC.NURSE ---
Pt medicated as per MAR orders.
== END 2022-04-06 19:09 | disposition home or self-care (01) ==
PROVIDERS: Physician Assistant; Emergency Provider Emergency Medicine; PCP Internal Medicine
DX: S39.012A Strain of muscle, fascia and tendon of lower back, initial encounter (principal); X50.1XXA Overexertion from prolonged static or awkward postures, initial encounter; G95.29 Other cord compression; R31.29 Other microscopic hematuria; M54.50 Low back pain, unspecified; I10 Essential (primary) hypertension; Y93.89 Activity, other specified; Y92.012 Bathroom of single-family (private) house as the place of occurrence of the external cause; Y99.9 Unspecified external cause status
CPT/HCPCS: 72100; 81001; 99283

== ENCOUNTER 2022-05-25 11:23 | Outpatient (REF) | payer MEDICARE, SELFPAY ==
--- NOTE | ~2022-05-25 | US_ITS ---
EXAMINATION: US RETROPERITONEAL LIMITED (RENAL ONLY) CLINICAL INFORMATION: Other microscopic hematuria. COMPARISON: MRI abdomen 05/17/2021. X-ray KUB 10/28/2019. Ultrasound abdomen complete 08/27/2019. CT abdomen and pelvis 03/24/2014. TECHNIQUE: Real-time imaging of the kidneys. FINDINGS: RIGHT KIDNEY: 8.9 x 4.6 x 4.8 cm (SAG x AP x TRV). The kidney is normal in size, contour, and echogenicity. Renal cortical thickness is normal. No calculi or focal parenchymal lesions. No hydronephrosis. There are multiple non-shadowing and non-twinkling echogenic foci. LEFT KIDNEY: 10.4 x 5.1 x 4.9 cm (SAG x AP x TRV). The kidney is normal in size, contour, and echogenicity. Renal cortical thickness is normal. No focal parenchymal lesions or hydronephrosis. There are 2 nonobstructive echogenic calculi midpole measuring 0.3 x 0.29 x 0.22 cm and 0.32 x 0.22 x 0.23 cm. US/US renal BI IMPRESSION: Two nonobstructive echogenic calculi midpole left kidney.
== END 2022-05-25 11:24 | disposition home or self-care (01) ==
LOC: HO.HMGCX 11:23
PROVIDERS: PCP Internal Medicine; Visit Provider Internal Medicine
DX: R31.29 Other microscopic hematuria (principal)
CPT/HCPCS: 76775

== ENCOUNTER 2022-06-14 14:00 | Outpatient (RCR) | payer MEDICARE, SELFPAY ==
--- NOTE | 2022-05-15 14:01 | MHC.PT.EP ---
[facility] [place] Office [place] Office [place] Office [address] Carlene Su [address] [phone] F: [phone] F: [phone] F: [phone] F: [phone] Physical Therapy Plan of Care Date of Evaluation: Date of Surgery: Diagnosis: This is an 81 yo female presenting to skilled PT with a script for lumbar spinal stenosis Assessment: This is an 81 yo female presenting to skilled PT with a script for lumbar spinal stenosis. Pt reports lower back pain that started in January when she turned the wrong way, pain improved 95%. However, then at the end of February she turned the wrong way again and it has been pretty stable for pain since then. Her pain was so bad she went to ED, she had x-ray. Pain is across the low back but mostly on the R, pain is sharp. Pain is with movement mainly but can be at rest. Pain increases with movements including pushing, pulling, turning and standing. She reports that transfers OOB have improved but still has trouble with rolling (sleeps in slight incline). She has a cane that she started to use when the pain was bad but no longer needs this. Her friend was assisting her with ADLs and house work. The patient reports icing but does not use any medication for pain anymore as she does not feel like this is helping. Patient was referred for PT and if her symptoms persist she will be referred to Pain Management cortisone injection per PCP documentation. Assessment reveals pain that ranges up to a 9/10. She demos decreased lumbar and thoracic ROM (decreased R hip ROM due to old ORIF), decreased hip strength, impaired gait pattern with compensation during transfers, s/s with + tests involving the SIJ as well as gross functional decline with bending, lifting, turning and ADLs. She is a good candidate for skilled PT 2x/wk for 5wks. Frequency and Duration: The patient will be seen 2x/wk for 5wks Short Term Goals: I with HEP Tolerate laying supine without increased time or lumbar flexion to tolerate position Demo proper core stab without PT cuing Penitentiary Goals: Demo normal gait pattern and transfers without compensation Perform normal and safe squat techniques without compensation Demo normal AROM and normal MMT without symptoms Improve Oswestry by 10 points Treatment Plan: Modalities to reduce pain, spasms and effusion. Manual therapy to restore motion and function. Therapeutic exercise to improve strength and flexibility. Neuromuscular re-education for posture and balance. Therapeutic activities to return to functional activities of daily living. Electronically signed by: Dana Breaux PT Please sign and return to therapist. Thank you for your referral.
--- NOTE | 2022-06-15 09:43 | MHC.PT.DC ---
[facility] [place] Office [place] Office [place] Office [address] Carlene Su [address] [phone] F: [phone] F: [phone] F: [phone] F: [phone] Physical Therapy Discharge Report Diagnosis: This is an 81 yo female presenting to skilled PT with a script for lumbar spinal stenosis Date of Surgery: Date of Evaluation: 05/15/22 Date of Discharge: 06/15/22 Treatments to Date: 8 Cancellations to Date: 0 No Shows to Date: 0 Discharge Status: Achieved Goals Improved Function Independent with HEP Patient Elected to Stop Discharge Summary: Pt reports improvements on last day of PT. At this time she is DC'd with a thorough HEP. Pt noted decrease soreness after stretches and HEP which have been helpful. Pt continues to over do activities and discussed pacing herself throughout the week as well as how to maintain proper functional form with household tasks. DC to HEP Electronically signed by: Dana Breaux, PT Please sign and return to therapist. Thank you for your referral.
== END 2022-06-15 09:45 | disposition home or self-care (01) ==
LOC: HO.PTCHIC 14:00
PROVIDERS: PCP Internal Medicine; Visit Provider Internal Medicine
DX: M48.061 Spinal stenosis, lumbar region without neurogenic claudication (principal)
CPT/HCPCS: 97110; 97140; 97162

== ENCOUNTER 2022-07-10 09:24 | Outpatient (REF) | payer MEDICARE, SELFPAY ==
--- NOTE | ~2022-07-10 | US_ITS ---
EXAMINATION: US ABDOMEN LIMITED CLINICAL INFORMATION: Personal history of irradiation. Rule out liver mass. COMPARISON: Renal ultrasound 05/25/2022. MRI abdomen 05/17/2021. X-ray KUB 10/28/2019. Ultrasound abdomen complete 08/27/2019. CT abdomen and pelvis 03/24/2014. TECHNIQUE: Real-time imaging of the right upper quadrant abdominal viscera. FINDINGS: PANCREAS: Normal. LIVER: Anechoic liver cysts seen by MRI are not visualized by ultrasound. The liver is normal in size. The liver contour is normal. Parenchymal echogenicity is normal. No focal hepatic lesion. There is no intrahepatic biliary duct dilatation seen. GALLBLADDER: Surgically absent. COMMON BILE DUCT: Normal in caliber measuring 0.19 cm in diameter. RIGHT KIDNEY: There is an echogenic stone in the lower pole measuring 0.22 x 0.17 x 0.16 cm. No hydronephrosis or focal parenchymal lesions. The kidney measures 9.0 cm in maximum dimension. There are multiple echogenic foci, non-shadowing and non-twinkle. FREE FLUID: None. US/US abdomen limited IMPRESSION: 1. Small echogenic stone lower pole right kidney. 2. Anechoic liver cysts seen by MRI are not visualized by ultrasound. 3. The gallbladder has been surgically removed. 4. The rest of the abdominal ultrasound is unremarkable.
== END 2022-07-10 09:25 | disposition home or self-care (01) ==
LOC: HO.HMGCX 09:24
PROVIDERS: PCP Internal Medicine; Visit Provider Internal Medicine
DX: Z92.3 Personal history of irradiation (principal)
CPT/HCPCS: 76705

== ENCOUNTER 2022-10-30 09:30 | Outpatient (REF) | payer MEDICARE, SELFPAY ==
[2022-10-30 12:04] LABS: Albumin Level 4.2 g/dL (3.5-5.0); Phosphorus 3.7 mg/dL (2.7-4.5)
[2022-10-30 12:08] LABS: Free T4 (Free Thyroxine) 0.95 ng/dL (0.71-1.85); Thyroid Stimulating Hormone 1.53 uIU/mL (0.32-4.0)
[2022-10-31 11:49] LABS: Calcium (PTHI) 9.1 mg/dL (8.6-10.4); PTHI 29 pg/mL (16-77)
== END 2022-10-30 09:31 | disposition home or self-care (01) ==
LOC: HO.HMGCLDS 09:30
PROVIDERS: PCP Internal Medicine; Visit Provider Internal Medicine
DX: E04.2 Nontoxic multinodular goiter (principal); E55.9 Vitamin D deficiency, unspecified
CPT/HCPCS: 36415; 82040; 82306; 83970; 84100; 84439; 84443

== ENCOUNTER → 2022-11-01 13:29 | Outpatient (BNVA) | payer MEDICARE, SELFPAY | PROVIDERS: PCP Internal Medicine; Visit Provider Internal Medicine | DX: R82.994 Hypercalciuria (principal); M81.0 Age-related osteoporosis without current pathological fracture; E04.2 Nontoxic multinodular goiter; E55.9 Vitamin D deficiency, unspecified | CPT/HCPCS: 99212 ==

== ENCOUNTER 2022-11-14 14:39 | Outpatient (REF) | payer MEDICARE, SELFPAY ==
[2022-11-14 20:30] LABS: Total Volume 24 Hour Urine 1650 mL
[2022-11-16 20:34] LABS: Calcium, 24 Hr Urine 353 mg/24 h; Calcium/Creatinine Ratio 375 mg/g creat (30-275); Creatinine 24Hr Urine 0.94 g/24 h (0.50-2.15)
== END 2022-11-14 14:40 | disposition home or self-care (01) ==
LOC: HO.HMGCLDS 14:39
PROVIDERS: PCP Internal Medicine; Visit Provider Internal Medicine
DX: R82.994 Hypercalciuria (principal)
CPT/HCPCS: 82340; 82570

== ENCOUNTER → 2022-11-28 13:03 | Outpatient (BNVA) | payer MEDICARE, SELFPAY | PROVIDERS: PCP Internal Medicine; Visit Provider Internal Medicine ==

== ENCOUNTER → 2023-01-02 13:00 | Outpatient (BNVA) | payer MEDICARE, SELFPAY | PROVIDERS: PCP Internal Medicine; Visit Provider Internal Medicine ==

== ENCOUNTER 2023-01-25 13:16 | Outpatient (REF) | payer MEDICARE, SELFPAY ==
[2023-01-25 14:07] LABS: MANUAL DIFF FLAG NO
[2023-01-25 14:13] LABS: Basophils Percent Auto 0.6 % (0-2); Eosinophils Absolute Auto 0.1 X10*3/uL (0.0-0.4); Eosinophils Percent Auto 1.5 % (0-4); Hematocrit 42.4 % (37.0-47.0); Hemoglobin 13.7 g/dl (12.0-16.0); Imm Gran Abs Auto 0.01 X10*3/uL (0.00-0.03); Imm Gran Pct Auto 0.2 % (0.0-0.4); Lymphocytes Absolute Auto 2.2 X10*3/uL (1.2-4.9); Lymphocytes Percent Auto 34.8 % (20-40); Mean Corpuscular HGB Conc 32.3 g/dl (31.0-35.0); Mean Corpuscular Hemoglobin 29.5 pg (27.0-33.0); Mean Corpuscular Volume 91.2 fL (80.0-98.0); Mean Platelet Volume 9.9 fL (9.4-12.3); Monocytes Absolute Auto 0.4 X10*3/uL (0.1-1.2); Monocytes Percent Auto 6.5 % (2-11); Neutrophils Absolute Auto 3.5 x10*3/uL (2.0-8.3); Neutrophils Percent Auto 56.4 % (45-73); Platelet Count 327 X10*3/uL (160-400); Red Blood Count 4.65 X10*6/uL (4.20-5.50); Red Cell Distribution Width 12.9 % (11.0-16.0); White Blood Count 6.2 X10*3/uL (4.8-10.8)
[2023-01-25 15:46] LABS: Alanine Aminotransferase 12 U/L (0-31); Albumin Level 4.4 g/dL (3.5-5.0); Alkaline Phosphatase 78 U/L (39-117); Anion Gap 14 (12-20); Aspartate Amino Transferase 16 U/L (5-31); Bilirubin Total 0.5 mg/dL (0.0-1.0); Blood Urea Nitrogen 24 mg/dL (9-16); C Reactive Protein 0.23 mg/dL (< or = 0.50); Calcium 9.6 mg/dL (8.4-10.2); Carbon Dioxide 30 mmol/L (22-29); Chloride 101 mmol/L (96-108); Estimated Glomerular Filt Rate > 60; Glucose Random 101 mg/dL (60-115); Phosphorus 3.8 mg/dL (2.7-4.5); Potassium 3.5 mmol/L (3.3-5.1); Sodium 141 mmol/L (135-145); Total Protein 7.1 g/dL (6.5-8.0)
[2023-01-25 15:55] LABS: Free T4 (Free Thyroxine) 1.09 ng/dL (0.71-1.85); Thyroid Stimulating Hormone 1.33 uIU/mL (0.32-4.0); Vitamin D 25-OH Total 59.7 ng/mL (>30)
[2023-01-28 15:24] LABS: Calcium (PTHI) 9.9 mg/dL (8.6-10.4); PTHI 24 pg/mL (16-77)
== END 2023-01-25 13:17 | disposition home or self-care (01) ==
LOC: HO.HMGCLDS 13:16
PROVIDERS: Absent Provider Internal Medicine; PCP Internal Medicine; Visit Provider Internal Medicine
DX: R10.9 Unspecified abdominal pain (principal); E04.2 Nontoxic multinodular goiter; M81.0 Age-related osteoporosis without current pathological fracture; E55.9 Vitamin D deficiency, unspecified; K57.92 Diverticulitis of intestine, part unspecified, without perforation or abscess without bleeding
CPT/HCPCS: 36415; 80053; 82306; 83970; 84100; 84439; 84443; 85025; 86140

== ENCOUNTER → 2023-01-30 12:31 | Outpatient (BNVA) | payer MEDICARE, SELFPAY | PROVIDERS: PCP Internal Medicine; Visit Provider Internal Medicine | DX: R82.994 Hypercalciuria (principal); M81.0 Age-related osteoporosis without current pathological fracture; E04.2 Nontoxic multinodular goiter; E55.9 Vitamin D deficiency, unspecified | CPT/HCPCS: 99212 ==

== ENCOUNTER 2023-02-20 08:09 | Outpatient (REF) | payer MEDICARE, SELFPAY ==
--- NOTE | ~2023-02-20 | CT_ITS ---
EXAMINATION: CT ABDOMEN AND PELVIS WITH CONTRAST CLINICAL INFORMATION: Diverticulitis COMPARISON: Previous CT of the abdomen and pelvis most recent March 2014, MRI of the abdomen April 2021 and abdominal ultrasound June 2022 TECHNIQUE: Multidetector volumetric images were obtained from the superior aspect of the liver through the pubic symphysis following administration 85 mL of Omnipaque 350 intravenous contrast. Sagittal and coronal reformatted images were obtained on the technologist's workstation. Oral contrast: Yes This CT examination was performed using dose optimization techniques as appropriate, variously including the following: *Automated exposure control *Adjustment of mA and/or kV according to patient size (this includes techniques or standardized protocols for targeted exams where dose is matched to indication/reason for exam; i.e. extremities or head) *Use of iterative reconstruction technique DLP: 225 mGy-cm FINDINGS: LUNG BASES: The visualized lung bases are unremarkable. LIVER, GALLBLADDER, AND BILIARY TREE: Fatty liver. Stable small low-attenuation lesions in the left lobe of the liver and caudate lobe. The were found to represent cysts on previous MRI. The gallbladder has been removed. No biliary duct dilatation. PANCREAS: Unremarkable. Small pancreatic cyst seen by MRI is not definitely appreciated by CT. SPLEEN: Unremarkable. ADRENAL GLANDS: Unremarkable. KIDNEYS AND URETERS: The kidneys are normal in size, shape, and attenuation. No hydronephrosis, hydroureter, or calculi seen. No perinephric stranding. Small bilateral renal cysts. No imaging follow-up recommended. BLADDER: Unremarkable. GASTROINTESTINAL TRACT: Constipation. Mild diverticulosis. No evidence of diverticulitis. Small and large bowel are otherwise normal. Normal appendix. Moderate hiatal hernia. ABDOMINAL WALL: No significant hernia is appreciated. LYMPH NODES: Normal. VASCULAR: Unremarkable. PELVIC VISCERA: Uterus is not seen and may been removed. No pelvic mass. OSSEOUS STRUCTURES: Scoliosis, degenerative change and osteopenia of the spine. Multiple compression fractures. Moderate recent-appearing T12 vertebral body compression fracture. Old severe L2 vertebral body compression fracture. Mild old L3 and moderate old L4 vertebral body compression fractures. These are all new in the interval from MRI April 2021. Orthopedic hardware in the right proximal femur. CT/CT abdomen pelvis w IV con IMPRESSION: Constipation and mild diverticulosis. No evidence of diverticulitis. Moderate size hiatal hernia. Stable small cysts in the liver and kidneys. Multiple thoracic and lumbar vertebral body compression fractures. Fleischner guidelines were followed.
[2023-02-20] MEDS: Barium Sulfate Oral (Berry) 450 ML ORAL.SUSP 900 ML PO (11:10)
[2023-02-20] MEDS: iohexoL 350 MG/ML 100 ML INFUS..BTL 85 ML IV (11:11)
== END 2023-02-20 08:10 | disposition home or self-care (01) ==
LOC: HO.CT 08:09
PROVIDERS: PCP Internal Medicine; Visit Provider Internal Medicine
DX: K57.92 Diverticulitis of intestine, part unspecified, without perforation or abscess without bleeding (principal)
CPT/HCPCS: 74177; Q9967

== ENCOUNTER 2023-05-13 13:57 | Outpatient (REF) | payer MEDICARE, SELFPAY ==
[2023-05-13 17:31] LABS: Alanine Aminotransferase 12 U/L (0-31); Albumin Level 4.3 g/dL (3.5-5.0); Alkaline Phosphatase 65 U/L (39-117); Anion Gap 12 (12-20); Aspartate Amino Transferase 18 U/L (5-31); Bilirubin Total 0.3 mg/dL (0.0-1.0); Blood Urea Nitrogen 15 mg/dL (9-16); Calcium 9.9 mg/dL (8.4-10.2); Carbon Dioxide 29 mmol/L (22-29); Chloride 104 mmol/L (96-108); Estimated Glomerular Filt Rate > 60; Glucose Random 128 mg/dL (60-115); Potassium 3.3 mmol/L (3.3-5.1); Sodium 142 mmol/L (135-145); Total Protein 7.2 g/dL (6.5-8.0)
[2023-05-14 14:13] LABS: Calcium (PTHI) 9.6 mg/dL (8.6-10.4); PTHI 22 pg/mL (16-77)
== END 2023-05-13 13:58 | disposition home or self-care (01) ==
LOC: HO.HMGCLDS 13:57
PROVIDERS: PCP Internal Medicine; Visit Provider Internal Medicine
DX: M81.0 Age-related osteoporosis without current pathological fracture (principal); R82.994 Hypercalciuria; E55.9 Vitamin D deficiency, unspecified
CPT/HCPCS: 36415; 80053; 82306; 83970; 84100

== ENCOUNTER 2023-05-15 14:00 | Outpatient (REF) | payer MEDICARE, SELFPAY ==
[2023-05-16 18:10] LABS: Creatinine, mg/dL 72.69
[2023-05-16 18:13] LABS: Total Volume 24 Hour Urine 1400 mL
[2023-05-17 19:49] LABS: Calcium, 24 Hr Urine 249 mg/24 h; Calcium/Creatinine Ratio 251 mg/g creat (30-275); Creatinine 24Hr Urine 0.99 g/24 h (0.50-2.15)
[2023-05-24 05:24] LABS: N-Telopeptide 66 (see note); NTXCreaRU 198 mg/dL (20-275)
== END 2023-05-15 14:01 | disposition home or self-care (01) ==
LOC: HO.HMGCLNP 14:00
PROVIDERS: PCP Internal Medicine; Visit Provider Internal Medicine
DX: M81.0 Age-related osteoporosis without current pathological fracture (principal)
CPT/HCPCS: 82340; 82523; 82570

== ENCOUNTER 2023-06-20 13:45 | Outpatient (REF) | payer MEDICARE, SELFPAY ==
--- NOTE | ~2023-06-20 | MR_ITS ---
EXAMINATION: MR ABDOMEN WITHOUT AND WITH CONTRAST CLINICAL INFORMATION: Secondary malignant neoplasm of liver and intrahepatic bile duct. COMPARISON: Previous abdominal MRI most recent April [address] of the abdomen and pelvis January 2023 and limited abdominal ultrasound June 2022. TECHNIQUE: MR abdomen was performed without and with use of 5.5 mL intravenous Gadavist gadolinium contrast. Postcontrast images are performed in multiphase dynamic sequences. Imaging was performed in 3 planes. FINDINGS: LUNG BASES: The visualized lung bases are unremarkable. LIVER, GALLBLADDER, AND BILIARY TREE: The liver is normal in size, smooth in contour, and normal in signal. There are several small liver cysts, largest measuring 7 mm in the medial segment of the left lobe of the liver. These are stable. No other liver lesion. No intrahepatic or extrahepatic biliary duct dilatation. The gallbladder has been removed. The gallbladder is unremarkable with no evidence of gallbladder wall thickening, or obvious pericholecystic inflammatory changes. PANCREAS: Small 4 mm cyst in the posterior body of the pancreas. This is similar to prior exams. The pancreas is otherwise normal. SPLEEN: Normal. ADRENAL GLANDS: Normal. KIDNEYS AND URETERS: The kidneys are normal in size, shape, and enhance symmetrically. No hydronephrosis. No perinephric stranding. Bilateral renal cysts. No imaging followup recommended. GASTROINTESTINAL TRACT: No bowel obstruction. No ascites or fluid collection. ABDOMINAL WALL: No significant hernia is appreciated. LYMPH NODES: No lymphadenopathy. VASCULAR: Unremarkable. OSSEOUS STRUCTURES: T12, L2 and L4 vertebral body compression fractures. These are similar to most recent CT of the abdomen and pelvis January 2023. MR/MR abdomen wo/w con IMPRESSION: Stable simple-appearing liver cysts. No suspicious liver lesion. Stable small cyst in the posterior body of the pancreas.
[2023-06-20] MEDS: gadobutroL 7.5 ML VIAL IVPUSH (14:48)
== END 2023-06-20 13:46 | disposition home or self-care (01) ==
LOC: HO.MRI 13:45
PROVIDERS: PCP Internal Medicine; Visit Provider Internal Medicine
DX: C78.7 Secondary malignant neoplasm of liver and intrahepatic bile duct (principal)
CPT/HCPCS: 74183; A9585

== ENCOUNTER 2023-09-05 13:32 | Outpatient (REF) | payer MEDICARE, SELFPAY ==
--- NOTE | ~2023-09-05 | MM_ITS ---
EXAMINATION: BONE DENSITOMETRY CLINICAL INDICATION: Age-related osteoporosis without current pathological fracture. COMPARISON: Baseline BD dated 08/02/2021. TECHNIQUE: Using a [employer] DXA System (software version: 13.1) manufactured by [employer], dual-energy x-ray absorptiometry was performed of the lumbar spine, left hip, and left forearm radius 33%. The images are of good technical quality. Summary results are attached. FINDINGS: AP SPINE L1-L4: Current: BMD 0.641 g/cm2, Z-score -2.4, T-score -4.5, osteoporosis, 0.3% increase from baseline (<5% change is not significant). Baseline: BMD 0.639 g/cm2. LEFT FEMUR, NECK: Current: BMD 0.472 g/cm2, Z-score -1.7, T-score -4.1, osteoporosis. Baseline: BMD 0.593 g/cm2. LEFT FEMUR, TOTAL: Current: BMD 0.540 g/cm2, Z-score -1.4, T-score -3.7, osteoporosis, 16.8% decrease from baseline (<5% change is not significant). Baseline: BMD 0.649 g/cm2. LEFT FOREARM RADIUS 33%: BMD 0.516 g/cm2, Z-score -1.2, T-score -4.1, osteoporosis, 2.8% increase from baseline (<5% change is not significant). Baseline: BMD 0.502 g/cm2. IDENTIFIED RISK FACTORS: Osteoporosis. Hyperparathyroidism. Height loss. Secondary osteoporosis (intestinal or bowel disease, part of stomach removed, early menopause). Hysterectomy. HISTORY OF FRACTURE: Femur/hip. MEDICATIONS: None listed. MM/XR DEXA appendicular skeleton IMPRESSION: 1. DIAGNOSIS: Severe osteoporosis based on the lowest T-score value of -4.5 in the lumbar spine and history of fracture applying World Health Organization criteria. 2. 10-YEAR FRACTURE RISK PREDICTION, FRAX: According to the guidelines, FRAX calculation should only be performed on patients in the osteopenia bone density category. Therefore, FRAX was not performed on this patient.? 3. Treatment Recommendations: NOF guidelines recommend consideration for treatment in postmenopausal women and men age 50 and older presenting with the following: -A hip or vertebral (clinical or morphometric) fracture. -T-score less than or equal to -2.5 at the femoral neck or spine after appropriate evaluation to exclude secondary causes. -Low bone mass at the hip or spine and a 10-year fracture probability by FRAX of greater than or equal to 3% for hip fracture or greater than or equal to 20% for major osteoporotic fracture based on the [place] adapted WHO algorithm. 4. Other Recommendations: All treatment decisions require clinical judgment and consideration of individual patient factors, including patient preferences, comorbidities, previous drug use, risk factors not captured in the FRAX model (e.g. frailty, falls, vitamin D deficiency, increased bone turnover, interval significant decline in bone density) and possible under or overestimation of fracture risk by FRAX. Additional medical evaluation for secondary cause of low bone mineral density may be appropriate. FUTURE SCAN RECOMMENDATION: People with diagnosed cases of osteoporosis or at high risk for fracture should have regular bone mineral density tests. For patients eligible for Medicare, routine testing is allowed once every 2 years. The testing frequency can be increased to one year for patients who have rapidly progressing disease, those who are receiving or discontinuing medical therapy to restore bone mass, or have additional risk factors.
== END 2023-09-05 13:33 | disposition home or self-care (01) ==
LOC: HO.MAMMO 13:32
PROVIDERS: PCP Internal Medicine; Visit Provider Internal Medicine
DX: Z13.820 Encounter for screening for osteoporosis (principal); Z78.0 Asymptomatic menopausal state; M81.0 Age-related osteoporosis without current pathological fracture
CPT/HCPCS: 77081

== ENCOUNTER 2023-09-18 14:24 | Outpatient (AMB) | payer MEDICARE, SELFPAY ==
--- NOTE | 2023-09-18 14:25 | A.OFFVIS_ITS ---
Intake Vital Signs 09/18/23 14:26 Height 5 ft 1 in Weight 130 lb 8.218 oz BMI 24.7 BP 146/72 H Blood Pressure Location Lt brachial Position Sitting Pulse 82 Pulse Source Pulse Oximeter Intake Visit Reasons: Idopathic Hypercalciuria-CONFIRMED Intake Note: Former Dr. Howe patient last seen on 01/30/23. Patient presents for Idopathic Hypercalciuria. Customer Solutions Coordinator Required: No Accompanied by: Self / Same As Patient Allergies aspirin [ASA] Allergy (Intermediate, Verified 09/18/23 14:37) TACHYCARDIA buspirone [From BuSpar] Allergy (Unknown, Verified 09/18/23 14:37) Stomach Upset Sulfa (Sulfonamide Antibiotics) [SULFA(SULFONAMIDE ANTIBIOTICS)] Adverse Reaction (Intermediate, Verified 09/18/23 14:37) VOMITING chlorthalidone Adverse Reaction (Unknown, Verified 09/18/23 14:37) Stomach pain, loss of appetite Medication List - Last Reconciled 09/18/23 by Frank Patiño MD apple cider vinegar mg PO Bacillus coagulans (Probiotic (B. coagulans)) cells PO brimonidine 0.2% 1 drp ophthalmic-Right TID cranberry extract 1,000 mg PO TID ginkgo biloba-Panax ginseng rt 60-100 mg caps PO indapamide 1.25 mg PO QAM latanoprost 0.005% 1 drp ophthalmic (eye) BEDTIME ondansetron 4 mg PO Q8H PRN pantoprazole 40 mg PO BID prednisolone acetate 1% 0 drps ophthalmic (eye) timolol maleate 0.5% 1 drp ophthalmic (eye) BID vitamin B complex 1 cap PO DAILY HPI HPI Comments History of Present Illness Details 82 YO Female with a PMHx of Uveal Melanoma s/p radiation therapy who is seen in F/U for Osteoporosis, NTMNG and idiopathic hypercalciuria. The patient last saw Dr. Howe on 01/30/2023 Of note, after her visit in 10/2019 she was meant to initiate Reclast. She opted to not have this infusion, and was lost to F/U. She was also found to have a MNG. She underwent FNA biopsy 11/09/2021 of her left mid pole 4.6 cm and her isthmus 1.3 cm thyroid nodules. Cytology for both revealed atypia of undetermined significance (bethesda category III). Affirma unfortunatly was a degraded sample for the left mid pole 4.6 cm nodule, but benign for the isthmus 1.3 cm thyroid nodule. She opted for a total thyroidectomy rather than repeat FNA attempt and has been referred to Dr. Guthrie. She underwent a L hemithyroidectomy 09/11/2022. Official surgical path was benign. She had also stopped her calcium supplement and repeated her 24 hour urine collection. This revealed hypercalciuria, into the mid 300's. PTH and Calcium have remained WNL. This was thought related to idiopathic hypercalciuria. She was started on HCTZ 12.5 mg PO daily and 24 hour urine calcium repeated 1 month later, and this revealed persistent hypercalciuria. Dose of HCTZ was increased to 25 mcg PO daily but she was unable to tolerate this due to headaches. History: ?First diagnosed with Osteoporosis many years ago. Has severe Osteoporosis with Lumbar T score -4.1, and distal radius T score -4.1. ?Was treated with Fosamax from [id number]. ?She was previously managed by Endocrinologists Dr. Murray, and then by Dr. Estrada in [place], [place]. ?She did suffer a hip fracture at the age of 60. 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 ?Has 1-2 servings of dietary calcium per day in the form of nuts and ice cream. Takes Calcium supplement 600 mg daily. Takes 2000 IU of Vitamin D daily. 24 hour urine calcium has remained eleva solange. She presents today to review this. ?Does use Protonix daily. Denies ever using an anticoagulant, antiepileptic or glucocorticoid medication. ?Does no scheduled exercise. ?Fracture history: ?Fractured her R hip in 2014 when she slipped on the ice on her drive way. Had ORIF. Compression fracture L2-L5 03/2022. ?Height loss: ?Has lost 2 inches in height. ?ADMINISTRATIVE JUDGE history: ?Menarche was age 14. Menses was always regular. . She did not breastfeed. Menopause was age 51. Used HRT for 6 months, but then stopped. ?History of Kidney stones: ?Denies. ?Family history of Osteoporosis or hip fracture: ?Mother with hip fracture. ?UTD on dental cleanings and sees dentist every 6 months. No planned upcoming dental work or extractions. US Thyroid: 07/25/2021 Right Thyroid Lobe: 5.1 x 1.9 x 1.7 cm, volume 8.6 mL. Previously 5.5 x 1.9 x 1.9 cm, volume 10.4 mL. Parenchyma: The gland echotexture is homogeneous. Thyroid vascularity is increased. Left Thyroid Lobe: 7.7 x 3.5 x 3.6 cm, volume 50.7 mL. Previously 7.0 x 3.4 x 2.2 cm, volume 27.6 mL. Parenchyma: The gland echotexture is homogeneous. Thyroid vascularity is increased. Isthmus: 1.2 cm in maximum AP dimension. Previously 1.2 cm. Estimated total number of nodules greater than or equal to 1 cm: 2. Facilities Administrator nodules are described as follows: 1.? Location: Isthmus. ?? ? Size: 1.3 x 0.6 x 1.3 cm, volume 0.53 mL. ?? ? Previously: 1.0 x 0.9 x 1.2 cm, volume 0.56 mL. ?? ? Nodule characteristics: ?? ? Composition: Solid (2). ?? ? Echogenicity: Isoechoic (1). ?? ? Shape: Not taller than wide (0). ?? ? Margins: Ill-defined (0). ?? ? Echogenic Foci: None (0). ? ACR TI-RADS total points: 3 ?? ? ACR TI-RADS category: 3 ? Significant change in size (>/= 20% in 2 dimensions and minimal increase of 2 mm or 50% or greater increase in volume): No ?? ? Change in features: No ?? ? Change in ACR TI-RADS risk category: No 2.? Location: Left mid/lower. ?? ? Size: 4.6 x 3.4 x 4.3 cm, volume 34.4 mL. ?? ? Previously: 4.2 x 3.4 x 4.0 cm, volume 29.9 mL. ?? ? Nodule characteristics: ?? ? Composition: Mixed cystic and solid (1). ?? ? Echogenicity: Cannot be determined (1). ?? ? Shape: Not taller than wide (0). ?? ? Margins: Lobulated (2). ?? ? Echogenic Foci: None (0).? ACR TI-RADS total points: 4 ?? ? ACR TI-RADS category: 4 ? Significant change in size (>/= 20% in 2 dimensions and minimal increase of 2 mm or 50% or greater increase in volume): Yes ?? ? Change in features: No ?? ? Change in ACR TI-RADS risk category: No 3.? Location: Right mid lateral. ?? ? Size: 0.7 x 0.4 x 0.5 cm, volume 0.08 mL. ?? ? Previously: New. ?? ? Nodule characteristics: ?? ? Composition: Spongiform (0). ?? ? ACR TI-RADS total points: 0 ?? ? ACR TI-RADS category: 1 ?? ? NODES: No lymphadenopathy is seen in the tissue surrounding the thyroid gland. ?DXA dated: ?08/02/2021 FINDINGS: AP SPINE L1-L4: BMD 0.639 g/cm2, Z-score -2.5, T-score -4.5, osteoporosis. LEFT FEMUR, NECK: BMD 0.593 g/cm2, Z-score -0.9, T-score -3.2, osteoporosis. LEFT FEMUR, TOTAL: BMD 0.649 g/cm2, Z-score -0.7, T-score -2.8, osteoporosis. LEFT FOREARM RADIUS 33%: BMD 0.502 g/cm2, Z-score -1.6, T-score -4.3, osteoporosis. Labs: Laboratory Tests 11/14/22 11/14/22 01/25/23 10:33 10:33 13:30 Sodium 141 Potassium 3.5 Ur 24 Hour Volume 1650 Ur Creatinine 24 H our 0.94 Ur Calcium 24 Hr 353 H Calcium/Creat 24 H r 375 H She is currently on Indapamide 1.25 mg q.d. with normalization of urinary calcium PFSH Medical History Hip fracture, right Idiopathic hypercalciuria Ingrown toenail of right foot Melanoma, choroid Multinodular goiter Osteoporosis Vitamin D deficiency Surgical History H/O colonoscopy History of lobectomy of thyroid Hx of cholecystectomy Family History Father No problems noted. Mother No problems noted. Social History Housing: House Alcohol intake: never Patient Tobacco Use Status: Never used Tobacco e-Cigarette/Vaping Use: Never Used Second Hand Smoke Exposure: No Current occupational status: retired Cognitive needs: No Hearing needs: No Vision needs: Yes Physical Exam Vital Signs: Last Vital Signs Pulse 82 09/18/23 14:26 BP 146/72 H 09/18/23 14:26 BMI result Body Mass Index 24.7 Assessment & Plan Assessment & Plan (1) Osteoporosis: Code(s): M81.0 - Age-related osteoporosis without current pathological fracture Plan: This 82-year-old white female with a history of severe osteoporosis osteoporosis with hip and compression fractures in the past with secondary workup consistent with hypercalciuria. Patient is currently on Indapamide with normalization urinary calcium. She has contraindication to anabolic therapy because of radiation therapy.Took Fosamax for 7 yrs. Plan is discussed with patient use of anti resorptive therapy suchas Prolia or Reclast. Ideally best sequence of therapy would be Prolia followed by Reclast. Patient is agreeing to go on Prolia and will try to go ahead and get approval for this Coding Level of Care Code Est Pt Level 3 (71169) Diagnoses Osteoporosis M81.0
[2023-09-18 14:26] VITALS: BP 146/72; PULSE 82; BMI 24.7
== END 2023-09-18 15:11 | disposition home or self-care (01) ==
PROVIDERS: PCP Internal Medicine; Visit Provider Internal Medicine Endocrinology, Diabetes & Metabolism
DX: M81.0 Age-related osteoporosis without current pathological fracture (principal)
CPT/HCPCS: 99213

== ENCOUNTER → 2023-09-18 14:24 | Outpatient (BNVA) | payer MEDICARE, SELFPAY | PROVIDERS: PCP Internal Medicine; Visit Provider Internal Medicine Endocrinology, Diabetes & Metabolism | DX: M81.0 Age-related osteoporosis without current pathological fracture (principal) | CPT/HCPCS: 99212 ==

== ENCOUNTER 2023-09-28 13:11 | Outpatient (REF) | payer MEDICARE, SELFPAY ==
--- NOTE | ~2023-09-28 | XR_ITS ---
EXAMINATION: XR HIP, LEFT CLINICAL INFORMATION: Pain in left hip. COMPARISON: 08/18/2019. TECHNIQUE: Two views of the left hip. FINDINGS: The bones are diffusely demineralized. Moderate degenerative changes in the left hip with joint space narrowing and hypertrophic change. Alignment is preserved. Degenerative changes on limited views of the left sacroiliac joint. XR/XR hip LT min 2V IMPRESSION: 1. Moderate degenerative changes left hip. 2. Degenerative changes on limited views of the left sacroiliac joint. 3. MRI could be considered for further evaluation if there is clinical concern for fracture or other underlying pathology.
== END 2023-09-28 13:12 | disposition home or self-care (01) ==
LOC: HO.HMGCX 13:11
PROVIDERS: PCP Internal Medicine; Visit Provider Internal Medicine
DX: M25.552 Pain in left hip (principal)
CPT/HCPCS: 73502

== ENCOUNTER 2023-11-01 12:28 | Outpatient (AMB) | payer MEDICARE, SELFPAY ==
--- NOTE | 2023-11-01 12:31 | A.OFFPC_ITS ---
Vital Signs 11/01/23 12:32 Height 5 ft 1 in Weight 130 lb BMI 24.6 BP 122/68 Blood Pressure Location Lt brachial Position Sitting Pulse 82 Pulse Source Pulse Oximeter Pulse Oximetry (%) 98 Oxygen Delivery Method Room Air Intake Visit Reasons: Intermittent Lt ear ache/Rt hand ache Intake Note: Pt is here today for a sick visit. Pt c/o L ear pain. Allergies aspirin [ASA] Allergy (Intermediate, Verified 11/01/23 12:49) TACHYCARDIA buspirone [From BuSpar] Allergy (Unknown, Verified 11/01/23 12:49) Stomach Upset Sulfa (Sulfonamide Antibiotics) [SULFA(SULFONAMIDE ANTIBIOTICS)] Adverse Reaction (Intermediate, Verified 11/01/23 12:49) VOMITING chlorthalidone Adverse Reaction (Unknown, Verified 11/01/23 12:49) Stomach pain, loss of appetite Medication List - Last Reconciled 11/01/23 by Anjelica Clarke MD apple cider vinegar mg PO Bacillus coagulans (Probiotic (B. coagulans)) cells PO brimonidine 0.2% 1 drp ophthalmic-Right TID cranberry extract 1,000 mg PO TID ginkgo biloba-Panax ginseng rt 60-100 mg caps PO indapamide 1.25 mg PO QAM latanoprost 0.005% 1 drp ophthalmic (eye) BEDTIME ondansetron 4 mg PO Q8H PRN pantoprazole 40 mg PO BID prednisolone acetate 1% 0 drps ophthalmic (eye) timolol maleate 0.5% 1 drp ophthalmic (eye) BID vitamin B complex 1 cap PO DAILY Tobacco use date assessed: 11/01/23 Fall risk assessment: No Falls in past year Last assessed Fall Risk: 11/01/23 Dental Screening Dental Screen Date: 11/01/23 Did you have a dental visit in the last 12 months?: Yes Did you have a dental problem in the last 6 months where you did not have access to dental care?: No Was dental information given to patient?: Patient has dentist HPI Intermittent Lt ear ache/Rt hand ache HPI Details Patient presents complaining of bilateral ear feeling blocked. She denies pain or discharge from the ears. Patient has been using wax removal drops regularly. She has been taking indapamide for hypercalciuria and follows up with endocrinology for severe osteoporosis. Patient can not afford Prolia. [facility] Medical History (Updated 11/01/23 @ 13:38 by Anjelica Clarke MD) Idiopathic hypercalciuria Vitamin D deficiency Ingrown toenail of right foot Hip fracture, right Multinodular goiter Osteoporosis Melanoma, choroid Surgical History History of lobectomy of thyroid Hx of cholecystectomy H/O colonoscopy Family History Father No problems noted. Mother No problems noted. Social History Housing: House Alcohol intake: never Patient Tobacco Use Status: Never used Tobacco e-Cigarette/Vaping Use: Never Used Second Hand Smoke Exposure: No Current occupational status: retired Cognitive needs: No Hearing needs: No Vision needs: Yes Questionnaire PHQ-9 Over the last 2 weeks, how often have you been bothered by any of the following problems? 1. Little interest or pleasure in doing things: not at all 2. Feeling down, depressed, or hopeless: not at all 3. Trouble falling or staying asleep, or sleeping too much: not at all 4. Feeling tired or having little energy: not at all 5. Poor appetite or overeating: not at all 6. Feeling bad about yourself - or that you are a failure or have let yourself or your family down: not at all 7. Trouble concentrating on things, such as reading the newspaper or watching television: not at all 8. Moving or speaking so slowly that other people could have noticed. Or the opposite - being so fidgety or restless that you have been moving around a lot more than usual: not at all 9. Thoughts that you would be better off or of hurting yourself in some way: not at all Total score: 0 Depression Screening Interpretation: Negative Depression Screening Done: Yes Source: Developed by Drs. Frank Estrada, Lorena Macias, Serafin De Dios and colleagues, with an educational maggie from [employer] Thrive Questionnaire Date Thrive assessed: 11/01/23 I am a: Patient What is your living situation today?: I have a steady place to live Within the past 12 months, did the food you bought not last and you didn't have the money to get more?: Never true Within the past 12 months, did you worry whether your food would run out before you got money to buy more?: Never true Do you have trouble paying for medicines?: No Do you have trouble getting transportation to medical appointments?: No Do you have trouble paying your heating and electricity bill?: No Do you have trouble taking care of your child, family member or friend?: No Do you have trouble with day-to-day activities such as bathing, preparing meals, shopping, managing finances, etc.?: No Are you currently unemployed and looking for a job?: No Are you interested in more education?: No Please select the resources that you would like help with: None Currently or been in a relationship where the following occur: no concerns reported THRIVE Score: 0 AUDIT C Alcohol Use Questionnaire (AUDIT-C) 1. How often do you have a drink containing alcohol?: Never 3. How often do you have six or more drinks on one occasion?: Never Total Score: 0 LAUREN-7 AMB Questionnaire LAUREN-7 Date LAUREN - 7 assessed: 11/01/23 Feeling nervous, anxious, or on edge: 0 = Not at all Not being able to stop or control worryin = Not at all Worrying too much about different things: 0 = Not at all Trouble relaxin = Not at all Being so restless that it is hard to sit still: 0 = Not at all Becoming easily annoyed or irritable: 0 = Not at all Feeling afraid as if something awful might happen: 0 = Not at all Total LAUREN-7 score (0-4 normal; 5-9 mild; 10-14 moderate; 15-21 severe): 0 Source: Developed by Drs. Frank Estrada, Lorena Macias, Serafin De Dios and colleagues, with an educational maggie from [employer] Review of Systems Const All systems reviewed & are unremarkable except as noted in HPI and below Reports no additional complaints Eyes Reports no additional complaints ENT Reports no additional complaints Card Reports no additional complaints Resp Reports no additional complaints GI Reports no additional complaints Reports no additional complaints Physical exam (Primary Care) Vital Signs: Last Vital Signs Pulse 82 11/01/23 12:32 BP 122/68 11/01/23 12:32 Pulse Ox 98 11/01/23 12:32 Oxygen Delivery Method Room Air 11/01/23 12:32 BMI result Body Mass Index 24.6 Tobacco/Smoking Status: Tobacco use Status Tobacco use date assessed 11/01/23 11/01/23 12:51 Patient Tobacco Use Status Never used Tobacco 11/01/23 12:32 e-Cigarette/Vaping Use Never Used 11/01/23 12:32 PHQ-9: PHQ-9 Score PHQ-9: Total score 0 11/01/23 12:51 Depression Screening Interpretation: Negative Thrive Assessment: Date of Thrive Assessment Date Thrive assessed 11/01/23 11/01/23 12:51 Currently or been in a relationship where the following occur: no concerns reported Const General: no acute distress HENMT Head: Yes normal to inspection Ears: hearing grossly normal bilaterally Throat: Yes posterior oropharynx normal Neck Neck: Yes no lymphadenopathy and Yes supple Resp Effort & Inspection: normal respiratory effort Cardio Rhythm: regular rhythm Heart sounds: S1 normal heart sound present and S2 normal heart sound present GI Inspection: Yes normal to inspection Palpation (GI): Soft to palpation Percussion: Yes normal to percussion Auscultation: normal bowel sounds Assessment and Plan Assessment & Plan (1) Idiopathic hypercalciuria: Comment: on Indapamide Code(s): R82.994 - Hypercalciuria Plan: Follow-up with endocrinology (2) IBS (irritable bowel syndrome): Comment: f/u with Code(s): K58.9 - Irritable bowel syndrome without diarrhea Plan: Follow-up with GI (3) Osteoporosis: Comment: took Fosamax for 7 yrs, DEXA 09/14 T score -4.5 (spine) cannot afford Prolia, F/U with Endo Code(s): M81.0 - Age-related osteoporosis without current pathological fracture Plan: f/u with Endo (4) Cerumen impaction: Code(s): H61.20 - Impacted cerumen, unspecified ear Plan: Ear lavage performed Orders: Orders Basic Metabolic Panel Today R82.994 - Hypercalciuria Medications: New indapamide 1.25 mg PO QAM 90 tabs 3RF R82.994 - Hypercalciuria hydrocortisone 2.5% 1 appl IN BID-QID PRN 30 grams 4RF hemorrhoids Coding Level of Care Code Est Pt Level 4 (47284) Diagnoses Idiopathic hypercalciuria R82.994 IBS (irritable bowel syndrome) K58.9 Osteoporosis M81.0 Cerumen impaction H61.20
[2023-11-01 12:32] VITALS: BP 122/68; PULSE 82; O2SAT 98; BMI 24.6
== END 2023-11-01 13:41 | disposition home or self-care (01) ==
PROVIDERS: PCP Internal Medicine; Visit Provider Internal Medicine
DX: R82.994 Hypercalciuria (principal); K58.9 Irritable bowel syndrome, unspecified; M81.0 Age-related osteoporosis without current pathological fracture; H61.23 Impacted cerumen, bilateral
CPT/HCPCS: 99214

== ENCOUNTER 2023-12-31 12:04 | Outpatient (AMB) | payer MEDICARE, SELFPAY ==
[2023-12-31 12:50] VITALS: BP 138/60; PULSE 85; TEMP 36.4; O2SAT 96; BMI 24.7
--- NOTE | 2023-12-31 12:50 | AM.OFFWIN_ITS ---
Intake Vital Signs 12/31/23 12:50 Height 5 ft 1 in Weight 131 lb BMI 24.7 BP 138/60 Blood Pressure Location Lt brachial Position Sitting Pulse 85 Pulse Source Pulse Oximeter Temp 97.6 F Temp Source Temporal Artery Scan Pulse Oximetry (%) 96 Oxygen Delivery Method Room Air Intake Visit Reasons: EP lft ear pain (lobby) Intake Note: pt is here today for lft ear pain started 11/01 Patient Tobacco Use Status: Never used Tobacco Allergies aspirin [ASA] Allergy (Intermediate, Verified 12/31/23 13:12) TACHYCARDIA buspirone [From BuSpar] Allergy (Unknown, Verified 12/31/23 13:12) Stomach Upset Sulfa (Sulfonamide Antibiotics) [SULFA(SULFONAMIDE ANTIBIOTICS)] Adverse Reaction (Intermediate, Verified 12/31/23 13:12) VOMITING chlorthalidone Adverse Reaction (Unknown, Verified 12/31/23 13:12) Stomach pain, loss of appetite Medication List - Last Reconciled 12/31/23 by Juan Jose Irvin MD apple cider vinegar mg PO Bacillus coagulans (Probiotic (B. coagulans)) cells PO brimonidine 0.2% 1 drp ophthalmic-Right TID cranberry extract 1,000 mg PO TID ginkgo biloba-Panax ginseng rt 60-100 mg caps PO hydrocortisone 2.5% 1 appl [place] BID-QID PRN indapamide 1.25 mg PO QAM latanoprost 0.005% 1 drp ophthalmic (eye) BEDTIME ondansetron 4 mg PO Q8H PRN pantoprazole 40 mg PO BID prednisolone acetate 1% 0 drps ophthalmic (eye) timolol maleate 0.5% 1 drp ophthalmic (eye) BID vitamin B complex 1 cap PO DAILY Do you need a note to return to daycare/school/sports/work: No HPI EP lft ear pain (lobby) HPI Details 83-year-old female presents to the [facility] for a sick visit. Patient is reporting symptoms of left ear pain. Intermittent in nature. Not associated with chewing. [facility] Medical History (Updated 11/01/23 @ 13:38 by Anjelica Clarke MD) Idiopathic hypercalciuria Vitamin D deficiency Ingrown toenail of right foot Hip fracture, right Multinodular goiter Osteoporosis Melanoma, choroid Surgical History History of lobectomy of thyroid Hx of cholecystectomy H/O colonoscopy Family History Father No problems noted. Mother No problems noted. Social History Housing: House Alcohol intake: never Patient Tobacco Use Status: Never used Tobacco e-Cigarette/Vaping Use: Never Used Second Hand Smoke Exposure: No Current occupational status: retired Cognitive needs: No Hearing needs: No Vision needs: Yes Physical Exam Vital Signs: Last Vital Signs Temp 97.6 F 12/31/23 12:50 Pulse 85 12/31/23 12:50 BP 138/60 12/31/23 12:50 Pulse Ox 96 12/31/23 12:50 Oxygen Delivery Method Room Air 12/31/23 12:50 BMI result Body Mass Index 24.7 HEENT Other: Left ear: Ear canal is normal. Tympanic membrane is visualized. No tenderness at the left TMJ joint. [id number] motion of the jaw does not elicit pain. Assessment & Plan Assessment & Plan (1) Otalgia of left ear: Code(s): H92.02 - Otalgia, left ear Plan: Claritin in his added to the regimen. Continue Flonase. If symptoms are persisting to follow-up with the PCP. Coding Level of Care Code Est Pt Level 3 (41371) Diagnoses Otalgia of left ear H92.02
== END 2023-12-31 13:24 | disposition home or self-care (01) ==
PROVIDERS: PCP Internal Medicine; Visit Provider Internal Medicine
DX: H92.02 Otalgia, left ear (principal)
CPT/HCPCS: 99213

== ENCOUNTER 2024-03-19 13:17 | Outpatient (AMB) | payer MEDICARE, SELFPAY ==
--- NOTE | 2024-03-19 13:19 | MHC.OFFVIS ---
Vital Signs 03/19/24 13:22 Height 5 ft 1 in Weight 130 lb 11.746 oz BMI 24.7 BP 130/62 Blood Pressure Location Lt brachial Position Sitting Pulse 116 H Pulse Source Pulse Oximeter Intake Visit Reasons: Idopathic Hypercalciuria-lvm Intake Note: Patient present today for Idiopathic Hypercalciuria follow up visit. Eligibility Specialist Required: No Accompanied by: Self / Same As Patient Allergies aspirin [ASA] Allergy (Intermediate, Verified 03/19/24 13:24) TACHYCARDIA buspirone [From BuSpar] Allergy (Unknown, Verified 03/19/24 13:24) Stomach Upset Sulfa (Sulfonamide Antibiotics) [SULFA(SULFONAMIDE ANTIBIOTICS)] Adverse Reaction (Intermediate, Verified 03/19/24 13:24) VOMITING chlorthalidone Adverse Reaction (Unknown, Verified 03/19/24 13:24) Stomach pain, loss of appetite Medication List - Last Reconciled 03/19/24 by Frank Patiño MD apple cider vinegar mg PO Bacillus coagulans (Probiotic (B. coagulans)) cells PO brimonidine 0.2% 1 drp ophthalmic-Right TID cranberry extract 1,000 mg PO TID denosumab (Prolia) 60 mg subcut [id number] ginkgo biloba-Panax ginseng rt 60-100 mg caps PO hydrocortisone 2.5% 1 appl ND BID-QID PRN indapamide 1.25 mg PO QAM latanoprost 0.005% 1 drp ophthalmic (eye) BEDTIME loratadine (Allergy Relief (loratadine)) 10 mg PO DAILY montelukast (Singulair) 10 mg PO BEDTIME ondansetron 4 mg PO Q8H PRN pantoprazole 40 mg PO BID prednisolone acetate 1% 0 drps ophthalmic (eye) timolol maleate 0.5% 1 drp ophthalmic (eye) BID vitamin B complex 1 cap PO DAILY HPI Comments Details: 83 YO Female with a PMHx of Uveal Melanoma s/p radiation therapy who is seen in F/U for Osteoporosis, NTMNG and idiopathic hypercalciuria. Of note, after her visit in 10/2019 she was meant to initiate Reclast. She opted to not have this infusion, and was lost to F/U. She was also found to have a MNG. She underwent FNA biopsy 11/09/2021 of her left mid pole 4.6 cm and her isthmus 1.3 cm thyroid nodules. Cytology for both revealed atypia of undetermined significance (bethesda category III). Affirma unfortunatly was a degraded sample for the left mid pole 4.6 cm nodule, but benign for the isthmus 1.3 cm thyroid nodule. She opted for a total thyroidectomy rather than repeat FNA attempt and has been referred to Dr. Guthrie. She underwent a L hemithyroidectomy 09/11/2022. Official surgical path was benign. She had also stopped her calcium supplement and repeated her 24 hour urine collection. This revealed hypercalciuria, into the mid 300's. PTH and Calcium have remained WNL. This was thought related to idiopathic hypercalciuria. She was started on HCTZ 12.5 mg PO daily and 24 hour urine calcium repeated 1 month later, and this revealed persistent hypercalciuria. Dose of HCTZ was increased to 25 mcg PO daily but she was unable to tolerate this due to headaches. History: ?First diagnosed with Osteoporosis many years ago. Has severe Osteoporosis with Lumbar T score -4.1, and distal radius T score -4.1. ?Was treated with Fosamax from 1305-6681. ?She was previously managed by Endocrinologists Dr. Murray, and then by Dr. Estrada in [place], [place]. ?She did suffer a hip fracture at the age of 60. 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 ?Has 1-2 servings of dietary calcium per day in the form of nuts and ice cream. Takes Calcium supplement 600 mg daily. Takes 2000 IU of Vitamin D daily. 24 hour urine calcium has remained elevated. She presents today to review this. ?Does use Protonix daily. Denies ever using an anticoagulant, antiepileptic or glucocorticoid medication. ?Does no scheduled exercise. ?Fracture history: ?Fractured her R hip in 2014 when she slipped on the ice on her drive way. Had ORIF. Compression fracture L2-L5 03/2022. ?Height loss: ?Has lost 2 inches in height. 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 Menses was always regular. . She did not breastfeed. Menopause was age 51. Used HRT for 6 months, but then stopped. ?History of Kidney stones: ?Denies. ?Family history of Osteoporosis or hip fracture: ?Mother with hip fracture. ?UTD on dental cleanings and sees dentist every 6 months. No planned upcoming dental work or extractions. US Thyroid: 07/25/2021 Right Thyroid Lobe: 5.1 x 1.9 x 1.7 cm, volume 8.6 mL. Previously 5.5 x 1.9 x 1.9 cm, volume 10.4 mL. Parenchyma: The gland echotexture is homogeneous. Thyroid vascularity is increased. Left Thyroid Lobe: 7.7 x 3.5 x 3.6 cm, volume 50.7 mL. Previously 7.0 x 3.4 x 2.2 cm, volume 27.6 mL. Parenchyma: The gland echotexture is homogeneous. Thyroid vascularity is increased. Isthmus: 1.2 cm in maximum AP dimension. Previously 1.2 cm. Estimated total number of nodules greater than or equal to 1 cm: 2. [employer] nodules are described as follows: 1.? Location: Isthmus. ?? ? Size: 1.3 x 0.6 x 1.3 cm, volume 0.53 mL. ?? ? Previously: 1.0 x 0.9 x 1.2 cm, volume 0.56 mL. ?? ? Nodule characteristics: ?? ? Composition: Solid (2). ?? ? Echogenicity: Isoechoic (1). ?? ? Shape: Not taller than wide (0). ?? ? Margins: Ill-defined (0). ?? ? Echogenic Foci: None (0). ? ACR TI-RADS total points: 3 ?? ? ACR TI-RADS category: 3 ? Significant change in size (>/= 20% in 2 dimensions and minimal increase of 2 mm or 50% or greater increase in volume): No ?? ? Change in features: No ?? ? Change in ACR TI-RADS risk category: No 2.? Location: Left mid/lower. ?? ? Size: 4.6 x 3.4 x 4.3 cm, volume 34.4 mL. ?? ? Previously: 4.2 x 3.4 x 4.0 cm, volume 29.9 mL. ?? ? Nodule characteristics: ?? ? Composition: Mixed cystic and solid (1). ?? ? Echogenicity: Cannot be determined (1). ?? ? Shape: Not taller than wide (0). ?? ? Margins: Lobulated (2). ?? ? Echogenic Foci: None (0).? ACR TI-RADS total points: 4 ?? ? ACR TI-RADS category: 4 ? Significant change in size (>/= 20% in 2 dimensions and minimal increase of 2 mm or 50% or greater increase in volume): Yes ?? ? Change in features: No ?? ? Change in ACR TI-RADS risk category: No 3.? Location: Right mid lateral. ?? ? Size: 0.7 x 0.4 x 0.5 cm, volume 0.08 mL. ?? ? Previously: New. ?? ? Nodule characteristics: ?? ? Composition: Spongiform (0). ?? ? ACR TI-RADS total points: 0 ?? ? ACR TI-RADS category: 1 ?? ? NODES: No lymphadenopathy is seen in the tissue surrounding the thyroid gland. ?DXA dated: ?08/02/2021 FINDINGS: AP SPINE L1-L4: BMD 0.639 g/cm2, Z-score -2.5, T-score -4.5, osteoporosis. LEFT FEMUR, NECK: BMD 0.593 g/cm2, Z-score -0.9, T-score -3.2, osteoporosis. LEFT FEMUR, TOTAL: BMD 0.649 g/cm2, Z-score -0.7, T-score -2.8, osteoporosis. LEFT FOREARM RADIUS 33%: BMD 0.502 g/cm2, Z-score -1.6, T-score -4.3, osteoporosis. Labs: Laboratory Tests 11/14/22 11/14/22 01/25/23 10:33 10:33 13:30 Sodium 141 Potassium 3.5 Ur 24 Hour Volume 1650 Ur Creatinine 24 Hour 0.94 Ur Calcium 24 Hr 353 H Calcium/Creat 24 Hr 375 H She is currently on Indapamide 1.25 mg q.d. with normalization of urinary calcium . Also on Prolia 60 mg q.6 months [facility] Medical History (Updated 11/01/23 @ 13:38 by Anjelica Clarke MD) Idiopathic hypercalciuria Vitamin D deficiency Ingrown toenail of right foot Hip fracture, right Multinodular goiter Osteoporosis Melanoma, choroid Surgical History History of lobectomy of thyroid Hx of cholecystectomy H/O colonoscopy Family History Father No problems noted. Mother No problems noted. Social History Housing: House Alcohol intake: never Patient Tobacco Use Status: Never used Tobacco e-Cigarette/Vaping Use: Never Used Second Hand Smoke Exposure: No Current occupational status: retired Cognitive needs: No Hearing needs: No Vision needs: Yes Physical Exam Vital Signs: Last Vital Signs Pulse 116 H 03/19/24 13:22 BP 130/62 03/19/24 13:22 BMI result Body Mass Index 24.7 Assessment & Plan Assessment & Plan (1) Osteoporosis: Comment: took Fosamax for 7 yrs, DEXA 09/14 T score -4.5 (spine) cannot afford Prolia, F/U with Endo Code(s): M81.0 - Age-related osteoporosis without current pathological fracture Category: Medical Plan: This 83-year-old white female with a history of severe osteoporosis osteoporosis with hip and compression fractures in the past with secondary workup consistent with hypercalciuria. Patient is currently on Indapamide with normalization urinary calcium. She has contraindication to anabolic therapy because of radiation therapy.Took Fosamax for 7 yrs. Plan is start Prolia . reinitate Vitamin D . We are in the process of trying to get approval for Prolia from the insurance company Coding Level of Care Code Est Pt Level 3 (78959) Complex EM visit Add On G2211 Diagnoses Osteoporosis M81.0
[2024-03-19 13:22] VITALS: BP 130/62; PULSE 116; BMI 24.7
== END 2024-03-19 13:47 | disposition home or self-care (01) ==
PROVIDERS: PCP Internal Medicine; Visit Provider Internal Medicine Endocrinology, Diabetes & Metabolism
DX: M81.0 Age-related osteoporosis without current pathological fracture (principal)
CPT/HCPCS: 99213; G2211

== ENCOUNTER → 2024-03-19 13:17 | Outpatient (BNVA) | payer MEDICARE, SELFPAY | PROVIDERS: PCP Internal Medicine; Visit Provider Internal Medicine Endocrinology, Diabetes & Metabolism | DX: M81.0 Age-related osteoporosis without current pathological fracture (principal) | CPT/HCPCS: 99212 ==

== ENCOUNTER 2024-06-26 12:18 | Outpatient (REF) | payer MEDICARE, SELFPAY ==
[2024-06-26 14:02] LABS: Albumin Level 4.2 g/dL (3.5-5.0); Calcium 9.4 mg/dL (8.4-10.2)
== END 2024-06-26 12:19 | disposition home or self-care (01) ==
LOC: HO.HMGCLDS 12:18
PROVIDERS: Visit Provider Internal Medicine Endocrinology, Diabetes & Metabolism
DX: M81.0 Age-related osteoporosis without current pathological fracture (principal)
CPT/HCPCS: 36415; 82040; 82310

== ENCOUNTER 2024-07-20 13:36 | Outpatient (AMB) | payer MEDICARE, SELFPAY ==
--- NOTE | 2024-07-20 13:38 | A.OFFVIS_ITS ---
Vital Signs 07/20/24 13:44 Height 5 ft 0.47 in Weight 133 lb 9.602 oz BMI 25.7 BP 138/68 Blood Pressure Location Lt brachial Position Sitting Pulse 96 Pulse Source Pulse Oximeter Intake Visit Reasons: Idopathic Hypercalciuria-lvm Intake Note: Patient present today for Idiopathic Hypercalciuria follow up visit. 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: No Accompanied by: Self / Same As Patient Allergies aspirin [ASA] Allergy (Intermediate, Verified 07/20/24 13:44) TACHYCARDIA buspirone [From BuSpar] Allergy (Unknown, Verified 07/20/24 13:44) Stomach Upset Sulfa (Sulfonamide Antibiotics) [SULFA(SULFONAMIDE ANTIBIOTICS)] Adverse Reaction (Intermediate, Verified 07/20/24 13:44) VOMITING chlorthalidone Adverse Reaction (Unknown, Verified 07/20/24 13:44) Stomach pain, loss of appetite Medication List - Last Reconciled 07/20/24 by Frank Patiño MD apple cider vinegar mg PO brimonidine 0.2% 1 drp ophthalmic-Right TID cranberry extract 1,000 mg PO TID denosumab (Prolia) 60 mg subcut [id number] ginkgo biloba-Panax ginseng rt 60-100 mg caps PO hydrocortisone 2.5% 1 appl HI BID-QID PRN indapamide 1.25 mg PO QAM latanoprost 0.005% 1 drp ophthalmic (eye) BEDTIME loratadine (Allergy Relief (loratadine)) 10 mg PO DAILY montelukast (Singulair) 10 mg PO BEDTIME moxifloxacin 0.5% drps ophthalmic (eye) ondansetron 4 mg PO Q8H PRN pantoprazole 40 mg PO BID prednisolone acetate 1% 0 drps ophthalmic (eye) timolol maleate 0.5% 1 drp ophthalmic (eye) BID vitamin B complex 1 cap PO DAILY HPI Comments Details: 83 YO Female with a PMHx of Uveal Melanoma s/p radiation therapy who is seen in F/U for Osteoporosis, NTMNG and idiopathic hypercalciuria. Of note, after her visit in 10/2019 she was meant to initiate Reclast. She opted to not have this infusion, and was lost to F/U. She was also found to have a MNG. She underwent FNA biopsy 11/09/2021 of her left mid pole 4.6 cm and her isthmus 1.3 cm thyroid nodules. Cytology for both revealed atypia of undetermined significance (bethesda category III). Affirma unfortunatly was a degraded sample for the left mid pole 4.6 cm nodule, but benign for the isthmus 1.3 cm thyroid nodule. She opted for a total thyroidectomy rather than repeat FNA attempt and has been referred to Dr. Gilles powell. She underwent a L hemithyroidectomy 09/11/2022. Official surgical path was benign. She had also stopped her calcium supplement and repeated her 24 hour urine collection. This revealed hypercalciuria, into the mid 300's. PTH and Calcium have remained WNL. This was thought related to idiopathic hypercalciuria. She was started on HCTZ 12.5 mg PO daily and 24 hour urine calcium repeated 1 month later, and this revealed persistent hypercalciuria. Dose of HCTZ was increased to 25 mcg PO daily but she was unable to tolerate this due to headaches. History: ?First diagnosed with Osteoporosis many years ago. Has severe Osteoporosis with Lumbar T score -4.1, and distal radius T score -4.1. ?Was treated with Fosamax from [id number]. ?She was previously managed by Endocrinologists Dr. Murray, and then by Dr. Estrada in [place], [place]. ?She did suffer a hip fracture at the age of 60. 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 ?Has 1-2 servings of dietary calcium per day in the form of nuts and ice cream. Takes Calcium supplement 600 mg daily. Takes 2000 IU of Vitamin D daily. 24 hour urine calcium has remained elevated. She presents today to review this. ?Does use Protonix daily. Denies ever using an anticoagulant, antiepileptic or glucocorticoid medication. ?Does no scheduled exercise. ?Fracture history: ?Fractured her R hip in 2014 when she slipped on the ice on her drive way. Had ORIF. Compression fracture L2-L5 03/2022. ?Height loss: ?Has lost 2 inches in height. 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 Menses was always regular. . She did not breastfeed. Menopause was age 51. Used HRT for 6 months, but then stopped. ?History of Kidney stones: ?Denies. ?Family history of Osteoporosis or hip fracture: ?Mother with hip fracture. ?UTD on dental cleanings and sees dentist every 6 months. No planned upcoming dental work or extractions. US Thyroid: 07/25/2021 Right Thyroid Lobe: 5.1 x 1.9 x 1.7 cm, volume 8.6 mL. Previously 5.5 x 1.9 x 1.9 cm, volume 10.4 mL. Parenchyma: The gland echotexture is homogeneous. Thyroid vascularity is increased. Left Thyroid Lobe: 7.7 x 3.5 x 3.6 cm, volume 50.7 mL. Previously 7.0 x 3.4 x 2.2 cm, volume 27.6 mL. Parenchyma: The gland echotexture is homogeneous. Thyroid vascularity is increased. Isthmus: 1.2 cm in maximum AP dimension. Previously 1.2 cm. Estimated total number of nodules greater than or equal to 1 cm: 2. Capacity Manager nodules are described as follows: 1.? Location: Isthmus. ?? ? Size: 1.3 x 0.6 x 1.3 cm, volume 0.53 mL. ?? ? Previously: 1.0 x 0.9 x 1.2 cm, volume 0.56 mL. ?? ? Nodule characteristics: ?? ? Composition: Solid (2). ?? ? Echogenicity: Isoechoic (1). ?? ? Shape: Not taller than wide (0). ?? ? Margins: Ill-defined (0). ?? ? Echogenic Foci: None (0). ? ACR TI-RADS total points: 3 ?? ? ACR TI-RADS category: 3 ? Significant change in size (>/= 20% in 2 dimensions and minimal increase of 2 mm or 50% or greater increase in volume): No ?? ? Change in features: No ?? ? Change in ACR TI-RADS risk category: No 2.? Location: Left mid/lower. ?? ? Size: 4.6 x 3.4 x 4.3 cm, volume 34.4 mL. ?? ? Previously: 4.2 x 3.4 x 4.0 cm, volume 29.9 mL. ?? ? Nodule characteristics: ?? ? Composition: Mixed cystic and solid (1). ?? ? Echogenicity: Cannot be determined (1). ?? ? Shape: Not taller than wide (0). ?? ? Margins: Lobulated (2). ?? ? Echogenic Foci: None (0).? ACR TI-RADS total points: 4 ?? ? ACR TI-RADS category: 4 ? Significant change in size (>/= 20% in 2 dimensions and minimal increase of 2 mm or 50% or greater increase in volume): Yes ?? ? Change in features: No ?? ? Change in ACR TI-RADS risk category: No 3.? Location: Right mid lateral. ?? ? Size: 0.7 x 0.4 x 0.5 cm, volume 0.08 mL. ?? ? Previously: New. ?? ? Nodule characteristics: ?? ? Composition: Spongiform (0). ?? ? ACR TI-RADS total points: 0 ?? ? ACR TI-RADS category: 1 ?? ? NODES: No lymphadenopathy is seen in the tissue surrounding the thyroid gland. ?DXA dated: ?08/02/2021 FINDINGS: AP SPINE L1-L4: BMD 0.639 g/cm2, Z-score -2.5, T-score -4.5, osteoporosis. LEFT FEMUR, NECK: BMD 0.593 g/cm2, Z-score -0.9, T-score -3.2, osteoporosis. LEFT FEMUR, TOTAL: BMD 0.649 g/cm2, Z-score -0.7, T-score -2.8, osteoporosis. LEFT FOREARM RADIUS 33%: BMD 0.502 g/cm2, Z-score -1.6, T-score -4.3, osteoporosis. Labs: Laboratory Tests 02/22/23 02/22/23 05/05/23 10:33 10:33 13:30 Sodium 141 Potassium 3.5 Ur 24 Hour Volume 1650 Ur Creatinine 24 Hour 0.94 Ur Calcium 24 Hr 353 H Calcium/Creat 24 Hr 375 H She is currently on Indapamide 1.25 mg q.d. with normalization of urinary calcium . Also on Prolia 60 mg q.6 months . Been on Prolia since . Receives Prolia in the infusion Center [place]. Has injection in May 27 2024 Due for injection in December 2023 . No symptoms of hyper thyroidism or hypothyroidism with does complain of an intermittent tremor [facility] Medical History (Updated 11/01/23 @ 13:38 by Anjelica Clakre MD) Idiopathic hypercalciuria Vitamin D deficiency Ingrown toenail of right foot Hip fracture, right Multinodular goiter Osteoporosis Melanoma, choroid Surgical History History of lobectomy of thyroid Hx of cholecystectomy H/O colonoscopy Family History Father No problems noted. Mother No problems noted. Social History Housing: House Alcohol intake: never Patient Tobacco Use Status: Never used Tobacco e-Cigarette/Vaping Use: Never Used Second Hand Smoke Exposure: No Current occupational status: retired Cognitive needs: No Hearing needs: No Vision needs: Yes Physical Exam Vital Signs: BMI result Body Mass Index 25.7 Assessment & Plan Assessment & Plan (1) Osteoporosis: Comment: took Fosamax for 7 yrs, DEXA 09/14 T score -4.5 (spine) cannot afford Prolia, F/U with Endo Code(s): M81.0 - Age-related osteoporosis without current pathological fracture Category: Medical Plan: This 83-year-old white female with a history of severe osteoporosis osteoporosis with hip and compression fractures in the past with secondary workup consistent with hypercalciuria. Patient is currently on Indapamide with normalization urinary calcium. She has contraindication to anabolic therapy because of radiation therapy.Took Fosamax for 7 yrs. Currently on Prolia Plan is continue, the vitamin-D, calcium and Prolia (2) Multinodular goiter: Comment: 4 cm nodule f/u Dr. Howe Code(s): E04.2 - Nontoxic multinodular goiter Category: Medical Plan: Status post hemithyroidectomy. Appears to be clinically euthyroid but complains of an intermittent tremor Will check TSH and free Orders: Orders Free T4 (Free Thyroxine) Today E04.2 - Nontoxic multinodular goiter Thyroid Stimulating Hormone Today E04.2 - Nontoxic multinodular goiter Coding Level of Care Code Est Pt Level 3 (94358) Diagnoses Osteoporosis M81.0 Multinodular goiter E04.2
[2024-07-20 13:44] VITALS: BP 138/68; PULSE 96; BMI 25.7
== END 2024-07-20 14:06 | disposition home or self-care (01) ==
LOC: HO.ENCR 13:37
PROVIDERS: PCP Internal Medicine; Visit Provider Internal Medicine Endocrinology, Diabetes & Metabolism
DX: M81.0 Age-related osteoporosis without current pathological fracture (principal); E04.2 Nontoxic multinodular goiter
CPT/HCPCS: 99213

== ENCOUNTER 2024-07-20 14:36 | Outpatient (REF) | payer MEDICARE, SELFPAY ==
[2024-07-20 16:54] LABS: Free T4 (Free Thyroxine) 0.98 ng/dL (0.71-1.85); Thyroid Stimulating Hormone 1.38 uIU/mL (0.32-4.0)
== END 2024-07-20 14:37 | disposition home or self-care (01) ==
LOC: HO.HMGCLDS 14:36
PROVIDERS: Internal Medicine Endocrinology, Diabetes & Metabolism; PCP Nurse Practitioner Family; Visit Provider Nurse Practitioner Adult Health
DX: E04.2 Nontoxic multinodular goiter (principal)
CPT/HCPCS: 36415; 84439; 84443; 99212

== ENCOUNTER → 2024-10-26 12:44 | Outpatient (BNV) | payer MEDICARE, SELFPAY | PROVIDERS: PCP Internal Medicine; Visit Provider Radiology Diagnostic Radiology | DX: K76.89 Other specified diseases of liver (principal) | CPT/HCPCS: 74183 ==

== ENCOUNTER 2024-10-26 13:02 | Outpatient (REF) | payer MEDICARE, SELFPAY ==
--- NOTE | ~2024-10-26 | MR_ITS ---
EXAMINATION: MRI Abdomen without and with contrast HISTORY: D49.0 - Neoplasm of unspecified behavior of digestive system COMPARISON: Comparison is made with the prior examination dated 06/20/2023. TECHNIQUE: Axial in and out of phase T1-weighted gradient echo, axial diffusion weighted, and axial and coronal haste T2 with fat saturation images were obtained through the abdomen. Subsequently, fat suppressed axial and coronal T1-weighted images were obtained after the intravenous administration of 6 mL Gadavist. FINDINGS: There is no significant signal loss within the liver on opposed phase imaging to suggest steatosis. Again seen is an 8 mm cyst in the caudate lobe of the liver and an additional 7 mm cyst in segment IV. There is an irregularly shaped 10 mm enhancing focus in segment VII on the arterial phase images (series 18, images 31-36), which is not seen on any additional sequence including the diffusion-weighted images. This may represent a perfusion anomaly. There is no intra or extrahepatic biliary ductal dilatation. The hepatic and portal veins are patent. The gallbladder is surgically absent. The spleen and adrenals are unremarkable. A tiny 2 mm cyst is again noted in the pancreatic body. There are left renal cysts measuring up to 1.4 cm at the upper pole and 1.2 cm the lower pole. Tiny T2 hyperintense foci in the right kidney may represent cysts but are too small to accurately characterize. No retroperitoneal lymphadenopathy or ascites is identified in the upper abdomen. There is a moderate to large hiatal hernia. MR/MR abdomen wo/w con IMPRESSION: Multiple hepatic cysts are again noted. In addition, there is a new 10 mm irregularly-shaped enhancing focus in segment VII which is not seen on any other sequence and may represent a perfusion anomaly. CT follow-up is recommended. Electronically signed by: Frank Arenas MD 10/26/2024 02:59 PM [facility]
[2024-10-26] MEDS: gadobutroL 7.5 ML VIAL IVPUSH (14:29)
== END 2024-10-26 13:03 | disposition home or self-care (01) ==
LOC: HO.MRI 13:02
PROVIDERS: PCP Internal Medicine; Visit Provider Internal Medicine
DX: D49.0 Neoplasm of unspecified behavior of digestive system (principal)
CPT/HCPCS: 74183; A9585

== ENCOUNTER 2024-10-27 11:47 | Outpatient (REF) | payer MEDICARE, SELFPAY ==
--- OUTSIDE RECORDS SUMMARY | 2024-10-27 12:46 | XMS_ITS | Data Portability ---
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 Sams for osteoporosis, complicated by hip fracture at age 60y, status post alendronate 2002 to 2009, and Seven thyroiditis. 05/24/16 DXA described l-spine (affected by degenerative change) t-score -3.5 (vs. -4.1 in 2013), L1:3 t-score t-score -3.7, left total femur t-score -2.4 (vs. -2.4 in 2013), distal radius t-score -3.3 (vs. -3.4 in 2013), which is consistent with improved bone density and osteoporosis. I reviewed Dr. Murray? s 08/06/16 note, at which time a left lower thyroid 2.5cm nodule and a left upper thyroid 0.7cm nodule were noted to be stable. Dr. Murray notes that the 07/27 left lower thyroid biopsy was benign (pathology report not reviewed by me). Dr. Murray recommended a repeat tsh and physical exam in 1y. In 2011, Dr. Murray recommended adequate ca and vit d for bone health. In 2010, she declined teriparatide for osteoporosis. 05/23/18 urine ca 366mg/24h (Ref 35, 250), urine volume 1.5L/24h, urine cr 0.9g/24h, 04/30/18 pth 25, tsh 0.7, 25oh vit d 59, non-fasting glc 102, cr 0.8, ca 9.3, phos 4.1, mg 2.1. Urine calcium has been high due to excessive take, 1100mg from supplements and 750mg via diet. I suggest limiting supplements to no more than 250mg daily and perhaps stopping calcium supplements completely. I explained to her that calcium in her urine is excessive and risks nephrolithiasis. She will reduce and repeat a urine calcium in a month. A DXA is planned. If bmd is stable to improved, observation would seem appropriate. However, if bmd declines much, then prolia or reclast could be considered. I spent a total of 26 minutes with the patient, over half of which was spent counseling the patient on optimal calcium intake with osteoporosis. [email or web address] Not available 07/16/2018 11:50:10 01/21/2019 01/21/2019 78yo woman, with a history of GERD, hysterectomy without oophorectomy 1980, uveal melanoma, status post radiotherapy in 2014, kindly referred by Dr. Sams for osteoporosis, complicated by hip fracture at age 60y, status post alendronate 2002 to 2009, and Seven thyroiditis. 07/31/18 DXA described L2:3 t-score -4.1, left femoral neck t-score -3.1, distal left third radius t-score -4.1, left total hip t-score -3.1, no change in left total hip, no change in the spine and a 11% decrease in the left radius, which is consistent with stable osteoporosis. I reviewed Dr. Murray? s 08/06/16 note, at which time a left lower thyroid 2.5cm nodule and a left upper thyroid 0.7cm nodule were noted to be stable. Dr. Murray notes that the 07/27 left lower thyroid biopsy was benign (pathology report not reviewed by me). Dr. Murray recommended a repeat tsh and physical exam in 1y. In 2011, Dr. Murray recommended adequate ca and vit d for bone health. In 2010, she declined teriparatide for osteoporosis. 05/23/18 urine ca 366mg/24h (Ref 35, 250), urine volume 1.5L/24h, urine cr 0.9g/24h, 04/30/18 pth 25, tsh 0.7, 25oh vit d 59, non-fasting glc 102, cr 0.8, ca 9.3, phos 4.1, mg 2.1. We again reviewed options for reducing risk of fracture. Since bone density is worse in the wrist and stable and low in spine, risk of fracture is high and she prefers to try an injection. We will try prolia pending labs per her preference. [email or web address] Not available 01/21/2019 10:57:44 07/29/2019 07/29/2019 78yo woman, with a history of GERD, hysterectomy without oophorectomy 1980, uveal melanoma, status post radiotherapy in 2014, kindly referred by Dr. Sams for osteoporosis, complicated by hip fracture at age 60y, status post alendronate 2002 to 2009, and Seven thyroiditis. 07/31/18 DXA described L2:3 t-score -4.1, left femoral neck t-score -3.1, distal left third radius t-score -4.1, left total hip t-score -3.1, no change in left total hip, no change in the spine and a 11% decrease in the left radius, which is consistent with stable osteoporosis. I reviewed Dr. Murray? s 08/06/16 note, at which time a left lower thyroid 2.5cm nodule and a left upper thyroid 0.7cm nodule were noted to be stable. Dr. Murray notes that the 07/27 left lower thyroid biopsy was benign (pathology report not reviewed by me). Dr. Murray recommended a repeat tsh and physical exam in 1y. In 2011, Dr. Murray recommended adequate ca and vit d for bone health. In 2010, she declined teriparatide for osteoporosis. 01/21/19 tsh 0.5, pth 23, 25oh vit d 62, nonfasting glc 105, cr 0.8, gfr 78, mg 2, ca 9.4, urine calcium 411mg/24h, urine creatinine 0.97g/24h. High urine calcium. Unfortunately, prolia is too expense. We again reviewed options for reducing risk of fracture, ie restarting an oral bisphosphonate vs. another injection. She prefers to try risedronate. I suggest stopping the calcium supplement and getting calcium via the diet due to hypercalciuria. [email or web address] Not available 07/29/2019 11:12:01 Plan of Treatment Reminders Order Date Submit Date Provider Last Modified By Organization Details Last Modified Time Details Appointments None recorded. Lab calcium, 24-hour urine 2018 019 [facility], [address] [place] [address], [id number], 9 21:12:19 creatinine , 24-hour urine 2018 019 [facility], [address] [place] [address], [address], 9 21:12:21 PTH (parathyro id hormone), intact, serum or plasma 2018 019 [facility], [address] [place] [address], [address], 9 14:18:39 magnesium, serum or plasma 2018 019 [facility], [address] [place] [address], [address], 9 14:55:30 TSH, serum or plasma 2018 019 [facility], [address] [place] [address], [address], 9 14:18:39 vitamin D, 25-hydroxy , total, serum 2018 019 [facility], [address] [place] [address], [address], 9 14:18:40 renal function panel, serum 2018 019 [facility], [address] [place] [address], [address], 9 14:55:29 Referral None recorded. Procedures None recorded. Surgeries None recorded. Imaging US, liver 2017 018 [facility]), [address], [place], [place], [address], 8 11:16:52 Medication Orders risedronat e 35 mg tablet 2018 019 INTERFACE [id number], [address], [place], [id number], 9 11:10:03 Patient TargetsNo targets recorded. Patient Instructions Encounter Date Encounter Id Patient Instructions Last Modified By Organization Details Last Modified Time 08/13/2018 [id number] advance directives: care instructions [email or web address] Not available 08/13/2018 15:50:35 preventing falls : care instructions [email or web address] Not available 08/13/2018 15:50:35 hearing loss: care instructions [email or web address] Not available 08/13/2018 15:50:35 well visit, over 65: care instructions [email or web address] Not available 08/13/2018 15:50:35 Reason for Referral None Reported. Results Created Date Observation Date Name Description Value Unit Range Abnormal Flag Note LastModifiedBy Organization Detail LastModifiedTime 01/22/20 19 01/21/2019 TSH, serum or plasm a TSH 0.52 uIU/m L 0.50-6 .00 The Ameri can [employer] ge of Endoc rinol ogy and Ameri can Thyro id Assoc iatio n recom mend goal TSH value s betwe en 0.4-4 .0 mIU/m L. Not Available [address], [address], 01/21/2019 14:18:39 01/22/20 19 01/21/2019 PTH (para thyro id hormo ne), intac t, serum or plasm a PTH intact 22.8 pg/mL 9.6-66 .3 Not Available [address], [address], 01/21/2019 14:18:39 01/22/2001/21/2019 vitam in D, 25-hy droxy , total , serum vitamin D 25-hydroxy EIA 62.4 NG/mL 20.0-9 9.9 Thera py is based on measu remen t of total 25-OH D, with level s less than 20 ng/mL indic ative of Vitam in D defic iency . Level s betwe en 20ng/ mL and 30 ng/mL sugge st insuf ficie ncy. Optim al Level s are great er than 30 ng/mL . Not Available [address], [address], 01/21/2019 14:18:40 01/22/2001/21/2019 renal funct ion panel , serum glucose 105 mg/dL 70-100 high Not Available [address], [address], 01/21/2019 14:55:29 01/22/2001/21/2019 renal funct ion panel , serum BUN 20 mg/dL 7-18 high Not Available [address], [address], 01/21/2019 14:55:29 01/22/2001/21/2019 renal funct ion panel , serum creatinine 0.8 mg/dL 0.8-1. 3 Not Available [address], [address], 01/21/2019 14:55:29 01/22/2001/21/2019 renal funct ion panel , serum B/C 25.0 ratio Not Available [address], [address], 01/21/2019 14:55:29 01/22/2001/21/2019 renal funct ion panel , serum GFR -non 77.9 mL/mi n Recom doc d GFR by the Natio nal Kidne y Found ation >60 mL/mi n/1.7 3m2 - Vane l <60 mL/mi n/1.7 3m2 - Chron ic Kidne y Disea se <15 mL/mi n/1.7 3m2 - Kidne y Failu re Not Available [address], [address], 01/21/2019 14:55:29 01/22/2001/21/2019 renal funct ion panel , serum GFR - if 89.6 mL/mi n For Afric an Ameri can patie nts: Resul ts Multi plied by 1.21 Not Available [address], [address], 01/21/2019 14:55:29 01/22/2001/21/2019 renal funct ion panel , serum sodium 145 mmol/ L 136-14 5 Not Available [address], [address], 01/21/2019 14:55:29 01/22/2001/21/2019 renal funct ion panel , serum potassium 4.1 mmol/ L 3.5-5. 1 Not Available [address], [address], 01/21/2019 14:55:29 01/22/2001/21/2019 renal funct ion panel , serum chloride 106 mmol/ L 96-107 Not Available [address], [address], 01/21/2019 14:55:29 01/22/2001/21/2019 renal funct ion panel , serum anion gap 10.2 5.0-15 .0 Not Available [address], [address], 01/21/2019 14:55:29 01/22/2001/21/2019 renal funct ion panel , serum CO2 29 mmol/ L 21-32 Not Available [address], [address], 01/21/2019 14:55:29 01/22/2001/21/2019 renal funct ion panel , serum calcium 9.4 mg/dL 8.5-10 .3 Not Available [address], [address], 01/21/2019 14:55:29 01/22/2001/21/2019 renal funct ion panel , serum albumin 3.7 g/dL 3.4-5. 0 Not Available [address], [address], 01/21/2019 14:55:29 01/22/20 19 01/21/2019 renal funct ion panel , serum phosphorous 3.50 mg/dL 2.50-4 .90 Not Available [address], [address], 01/21/2019 14:55:29 01/22/20 19 01/21/2019 magne sium, serum or plasm a magnesium 2.0 mg/dL 1.8-2. 4 Not Available [address], [address], 01/21/2019 14:55:30 02/21/20 19 02/23/2019 calci um, 24-ho ur urine calcium, 24 hour urine 411 mg/24 _h high Refer ence Range 35-25 0 Low calci um diet 35-20 0 TOTAL URINE VOLUM E: 1700/ 24 Not Available [facility] [address], [address], 02/23/2019 21:12:19 02/21/20 19 02/23/2019 creat inine , 24-ho ur urine creatinine, 24 hour urine 0.97 g/24_ h 0.50-2 .15 normal TOTAL URINE VOLUM E: 1700/ 24 Not Available [facility] [address], [address], 02/23/2019 21:12:21 08/08/20 18 07/31/2018 bone densi ty OBSERV ATION: Dual-E nergy X-ray Absorp tiomet ry (DXA) scan perfor med on 018. Impres jacinto: Based on BMD, diagno sis is consis tent with osteop orosis , with stable BMD since the prior study. Treatm ent Recomm endati ons: This patien t has osteop orosis , with stable BMD. Treatm ent option s could be consid ered. Follow -up DXA: Consid er repeat ing this study in 2 years or as clinic julienne narvaez. Indica tion(s ): Osteop orosis Clinic al Histor y: Histor y of Fosama x therap y, femur fractu re, parent al hip fractu re Techni laura Qualit y: L1 and L4 were exclud ed due to discor dance. The right hip was not imaged due to prior fractu re. Result s: Lumbar Spine The BMD measur ed in the L2-L3 region is 0.706 g/cm2. T-scor e = -4.1 Femora l Neck The BMD measur ed at the left femora l neck is 0.608 g/cm2. T-scor e = -3.1 Total Hip The BMD measur ed at the left total proxim al femur is 0.676 g/cm2. T-scor e = -2.6 1/3 Radius The BMD measur ed at the left one-th ird radius is 0.528 g/cm2. T-scor e = -4.1 Interv al Change : This examin ation is compar ed to the techni ynuior mejia r prior study from 05/24/20 16. In the interi m, there has been no change at the left total hip, and there has been no change at the L2-L3 spine. There has been a decrea se of 0.064 g/cm2, or 10.8% at the left 1/3 radius . The LSC at the 1/3 radius at this facili ty is not known. At this facili ty, the least signif icant change in BMD with 95% confid ence is 0.033 g/cm2 at the L1-L4 spine, and 0.050 g/cm2 at the total hip. This scan was perfor med using the [employer] Primo 10 densit ometer at [facility] , [id number] [place]. Read by: Cristiano acuna PA-C, CCD Electr onical ly signed Estrada rajan Physic cornelia: Jeannette Andersen [facility]) [address], [place], [address], 08/09/2018 19:45:09 08/25/20 18 08/25/2018 US, liver OBSERV ATION: Abdomi nal ultras ound Histor y: Ocular melano ma, survei llance exam for metast ases Compar joe is made with prior study of 2016. Chroni c marked acoust ic shadow ing arisin g from the gallbl adder fossa is consis tent with cholel ithias is. Intrah epatic bile ducts are nondil ated and the common duct is within normal limits at 0.5 cm in diamet er. Liver is within normal limits in size and displa ys homoge neous parenc hyma echote xture. Pancre as and kidney s are within normal limits in size and sonogr aphic appear ance as are the visual ized portio ns of the proxim al abdomi nal aorta and IVC. Spleen is obscur ed by overly ing bowel gas. IMPRES JACINTO: Chroni c cholel ithias is. No hepati c parenc hymal lesion identi fied. Spleen obscur ed by bowel gas. POS - VMG Electr onical ly signed Readkoffi rajan Physic cornelia: Lex Odell MD [facility] ([facility]) [address] , [place], [address], 01/26/2019 09:26:11 01/29/20 19 01/28/2019 MAMMO , scree tez, tomos ynthe sis, bilat eral, w/ CAD FINDIN GS: Bilate ral full-f ield digita l screen ing mammog rick is obtain ed and read in conjun ction with comput er-aid ed detect ion. 3-D tomosy nthesi s as well as 2-D C view imagin g is also perfor med. Compar joe includ es the most recent exam from 2017 and as far back as 2011. Breast s are compos ed of scatte red fibrog landul ar tissue . Waxing and waning circum scribe d lesion s bilate rally in a patter n seen with cysts. Stable bilate ral nodula rity. Scatte red and loosel y groupe d calcif icatio ns withou t worris ome change . No new suspic ious mass, suspic ious microc alcifi cation s, crystal ectura l distor tion, focal skin thicke tez, or new asymme try is detect ed. IMPRES JACINTO: No mammog raphic change indica tive of malign blanco. Routin e screen ing is recomm ended. BI-RAD S CATEGO RY: 2 - Benign findin g. DENSIT Y: There are scatte red fibrog landul ar densit ies. POS - [id number] Electr onical ly Signed by: MERON CORADO on 01/29/20 6:46 PM Interp reted by: Meron Corado MD Signed by: Meron Corado MD 01/28/19 CC Recipi ents: Anjelica Clarke MD - Fax Final result TY SAMS [facility] [address] [place] [address], [address], 01/28/2019 20:22:13 01/29/20 19 01/28/2019 MAMMO , scree tez No observ ation record ed. [email or web address] [address], [address], 02/02/2019 09:08:34 Result Notes None recorded. 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 needs lft's q yr and ultrasoun d of abdomen qyr Calos Valiente MD [address] [place] [address] [place], [address], [facility] 7 14:58:02 Computed tomograp hy result abnormal 529599084 Completed 10/12/2015 Calos Valiente MD [address] [place] [address] [place], [address], [facility] 6 13:28:27 Solitary nodule of lung 772294566 Active [address] low dose repeat CT Sep 2017 Calos Valiente MD [address] [place] [address] [place] [address], [facility] 7 08:18:25 Mixed hyperlip idemia 979570705 Active 2008 Calos Valiente MD [address] [place] [address] [place] [address], [facility] 6 13:28:26 Nervous system symptoms Completed 200409/05/2011 Calos Valiente MD [address] [place] [address] [place], [address], [facility] 6 13:28:26 Colitis, enteriti s and gastroen teritis presumed infectio us 381297030 Completed 04/06/2013 Calos Valiente MD [address] [place], [place] [address]J[place], [address], [facility] 6 13:28:26 Abnormal findings on diagnost ic imaging of breast 152571877 Completed 200007/18/2009 Calos Valiente MD [address] [place] [address] [place], [address], [facility] 6 13:28:26 Gastroes ophageal reflux disease 283890442 Active 2006 Calos Valiente MD [address] [place] [address] [place], [address], [facility] 6 13:28:26 Non-toxi c uninodul ar goiter 013705231 Completed 200310/28/2014 Calos Valiente MD [address] [place], [place] [address], [address], [facility] 6 13:28:26 Nausea and vomiting 39667352 Completed 200604/06/2013 Calos Valiente MD [address] [place] [address] [place], [address], [facility] 6 13:28:26 Lateral epicondy litis 439490669 Completed 200407/18/2009 Calos Valiente MD [address] [place] [address] [place], [address], [facility] 6 13:28:26 Divertic ulitis of colon 321538236 Active 2006 Calos Valiente MD [address] [place] [address] [place], [address], [facility] 6 13:28:26 Neck pain 16592837 Completed 200307/18/2009 Calos Valiente MD [address] [place] [address] [place], [address], [facility] 6 13:28:26 Atypical facial pain 93742175 Completed 200102/20/2011 Calos Valiente MD [facility] [place], [address], [facility] 6 13:28:26 Left lower quadrant pain 488470665 Completed 200704/06/2013 Calos Valiente MD [address] [place] [address] [place], [address], [facility] 6 13:28:26 Epidermo id cyst of skin 183158183 Completed 09/05/2011 Calos Valiente MD [address] [place] [address] [place], [address], [facility] 6 13:28:26 Epidermo id cyst of skin 931059871 Completed 200102/20/2011 Calos Valiente MD [address] [place] [address] [place], [address], [facility] 6 13:28:26 Sprain of shoulder and upper arm Completed 200604/06/2013 Calos Valiente MD [address] [place] [address] [place], [address], [facility] 6 13:28:26 Acute maxillar y sinusiti s 56836328 Completed 200202/20/2011 Calos Valiente MD [address] [place], [place] [address], [address], [facility] 6 13:28:26 Non-toxi c multinod ular goiter 68897956 Active 2007 Calos Valiente MD [address] [place] [address] [place], [address], [facility] 6 13:28:26 Divertic ular disease of colon 318935713 Completed 200810/28/2014 Calos Valiente MD [address] [place], [place] [address], [address], [facility] 6 13:28:26 Hashimot o thyroidi tis 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 Active 2004 get tsh 07/2017 Calos Valiente MD [address] [place] [address] [place], [address], [facility] 6 16:46:00 Acute bronchit is 37468887 Completed 200002/20/2011 Calos Valiente MD [facility], [address], [facility] 6 13:28:26 Left upper quadrant pain 056915048 Completed 200002/20/2011 Calos Valiente MD [address] [place] [address] [place], [address], [facility] 6 13:28:26 Decrease in height 18814878 Completed 200608/12/2013 Calos Valiente MD [address] [place] [address] [place], [address], [facility] 6 13:28:26 Headache 22421524 Completed 200007/18/2009 Calos Valiente MD [address] [place] [address] [place], [address], [facility] 6 13:28:26 Sprain of ligament of lumbosac ral joint Completed 200210/28/2014 Calos Valiente MD [address] [place] [address] [place], [address], [facility] 6 13:28:26 Carpal tunnel syndrome 04086745 Completed 200007/18/2009 Calos Valiente MD [address] [place] [address] [place], [address], [facility] 6 13:28:26 Hyperthy roidism 76149346 Completed 200610/21/2017 Calos Valiente MD [address] [place] [address] [place], [address], [facility] 8 12:19:41 Contact dermatit is 48630555 Completed 200809/05/2011 Calos Valiente MD [address] [place] [address] [place], [address], [facility] 6 13:28:26 Senile hyperker atosis 450953466 Completed 200809/05/2011 Calos Valiente MD [address] [place] [address] [place], [address], [facility] 6 13:28:26 Shoulder pain 93421415 Completed 200604/06/2013 Calos Valiente MD [address] [place] [address] [place], [address], [facility] 6 13:28:26 Gastro-e sophagea l reflux disease with esophagi tis 232131943 Completed 199910/28/2014 Calos Valiente MD [address] [place] [address] [place], [address], [facility] 6 13:28:26 Clostrid ioides difficil e infectio n 008925088 Completed 200610/28/2014 Calos Valiente MD [address] [place] [address] [place], [address], [facility] 6 13:28:26 Astigmat ism 53558821 Completed 200507/18/2009 Calos Valiente MD [address] [place] [address] [place], [address], [facility] 6 13:28:26 Impacted cerumen 39888558 Completed 200102/20/2011 Calos Valiente MD [address] [place] [address] [place], [address], [facility] 6 13:28:26 Sprain of spinal ligament 221089483 Completed 200007/18/2009 Calos Valiente MD [address] [place] [address] [place], [address], [facility] 6 13:28:26 Conducti ve hearing loss 30285026 Active 2003 Calos Valiente MD [address] [place] [address] [place], [address], [facility] 6 13:28:26 Sprain of ankle 69146338 Completed 200809/05/2011 Calos Valiente MD [facility], [address], [facility] 6 13:28:26 Irritabl e bowel syndrome 36691449 Active 2006 [place], [address], [facility] 6 13:28:26 Breathin g painful 33385997 Completed 200207/18/2009 [place], [address], [facility] 6 13:28:26 Adverse reaction to substanc e 818180559 Completed 199907/18/2009 Calos Valiente MD [facility], [address], [facility] 6 13:28:26 Injury of lower limb 674832549 Completed 200007/18/2009 [place], [address], [facility] 6 13:28:26 Breast lump 96625906 Completed 200507/18/2009 [place], [address], [facility] 6 13:28:26 Gastroin testinal hemorrha ge 73972966 Completed 200504/06/2013 Calos Valiente MD [address] [place], [place] [address], [address], [facility] 6 13:28:26 Nonvenom ous insect bite of multiple sites 792253686 Completed 200604/06/2013 [place], [address], [facility] 6 13:28:26 Mammogra phy abnormal 085629625 Completed 200409/05/2011 [place], [address], [facility] [facility] 6 13:28:26 Common cold [id number] Completed 200604/06/2013 Calos Valiente MD [address] [place], [place] [address], [address], [facility] 6 13:28:26 Postarti ficial menopaus al syndrome [id number] Completed 200608/12/2013 Calos Valiente MD [address] [place], [place] [address], [address], [facility] 6 13:28:26 On examinat ion - a rash Completed 200804/06/2013 Calos Valiente MD [address] [place], [place] [address], [address], [facility] 6 13:28:26 Benign neoplasm of large intestin e 12220686 Active 2005 Calos Valiente MD [facility], [address], [facility] 6 13:28:26 Senile osteopor osis 24700828 Completed 200404/06/2013 Calos Valiente MD [facility], [address], [facility] 6 13:28:26 Chest pain [id number] Completed 200804/06/2013 Calos Valiente MD [address] [place], [place] [address], [address], [facility] 6 13:28:26 Osteopor osis 47417685 Active 2004 [place], [address], [facility] 6 13:28:26 Menopaus al symptom 93405856 Completed 200208/12/2013 [place], [address], [facility] 6 13:28:26 Osteoart hritis 926825167 Active 2000 Calos Valiente MD [address] [place], [place] [address], [address], [facility] 6 13:28:27 Solitary cyst of breast 613502199 Completed 200002/20/2011 Calos Valiente MD [address] [place] [address] [place], [address], [facility] 6 13:28:26 External hemorrho ids 73542564 Completed 200709/05/2011 Calos Valiente MD [address] [place], [place] [address], [address], [facility] 6 13:28:26 Problem Notes None recorded. Procedures Surgical History Date Name Laterality Status Provider Name and Address Organization Details Recorded Time 08/13/20 18 Medicare Wellness Visit completed Anna Jaeger LPN [facility] 08/13/2018 15:32:17 11/14/19 18 Tassoni - Colonoscopy completed Tru Roberts MD [address] [place] [address], [phone], [facility] 11/14/2017 10:50:24 07/02/20 17 Cerumen Removal - Irrigation/Lavage completed Glory Shi LPN [facility] 07/02/2017 12:00:33 04/22/20 17 Medicare Wellness Visit completed Binta Lam MA [facility] 04/22/2017 11:39:26 05/02/20 16 Cerumen Removal - Irrigation/Lavage completed Cecelia Newell LPN [facility] 05/02/2016 14:24:43 04/19/20 16 Medicare Wellness Visit completed Tammy Grace MA [facility] 04/19/2016 10:18:59 04/18/20 15 Medicare Wellness Visit completed Binta Lam MA [facility] 04/18/2015 11:56:21 03/23/20 15 Cerumen Removal completed Lety Castellon LPN [facility] 03/23/2015 10:27:25 04/15/20 14 Medicare Wellness Visit completed Binta Lam MA [facility] 04/15/2014 15:11:55 08/12/20 13 Cerumen Removal completed Lety Castellon LPN [facility] 08/12/2013 12:22:56 04/06/20 13 Medicare Wellness Visit completed Binta Lam MA [facility] 04/06/2013 11:39:32 10/06/19 13 Cerumen Removal completed Sebastián Syed RN [facility] 10/06/2012 16:43:15 09/02/20 12 Suture/staple Removal completed Irene Kirk LPN [facility] 09/02/2012 11:19:40 08/26/20 12 Excision completed Claos Valiente MD [address] [place] [address], [phone], [facility] 08/26/2012 14:18:50 03/27/20 12 Medicare Wellness Visit completed Binta Lam MA [facility] 03/27/2012 11:35:52 02/20/20 12 Cerumen Removal completed Abbie Lal RN [facility] 02/20/2012 15:58:57 08/09/20 11 Cerumen Removal completed Irene Kirk LPN [facility] 08/09/2011 12:13:13 03/07/20 11 Suture/staple Removal completed Abbie Lal RN [facility] 03/07/2011 11:51:06 02/27/20 11 Excision completed Calos Valiente MD [address] [place] [address], [phone], [facility] 02/26/2011 10:58:49 02/21/20 11 Medicare Annual Wellness Visit completed Binta Lam MA [facility] 02/20/2011 09:28:23 02/21/20 11 Medicare Risk for Falls Screen completed Calos Valiente MD [address] [place] [address], [phone], [facility] 02/20/2011 09:40:31 02/21/20 11 Advanced Care Planning completed Calos Valiente MD [address] [place] [address], [phone], [facility] 02/20/2011 09:53:51 01/19/20 11 Cerumen Removal completed Mary Angel NP [address] [place], [address], [facility] 01/18/2011 17:44:54 06/09/20 10 Cerumen Removal completed Lety Castellon [facility] 06/09/2010 15:25:27 03/28/20 10 Corticosteroid Injection completed Calos Valiente MD [address] [place], [address], [facility] 03/28/2010 11:03:57 12/29/19 10 Cerumen Removal completed Zeinab Greene [facility] 12/28/2009 09:50:55 06/01/20 09 Cerumen Removal completed Irene Kirk [facility] 06/01/2009 12:02:59 06/12/20 06 completed Not Available [facility] 08/09/2011 06:05:52 Imaging Results Imaging Date Name Status LastModified by Organiz ation Details LastModified Time 07/31/[address] [facility] (Imaging) [address], [place], [address], 08/09/2018 19:45:09 08/25/2018 US, liver completed [facility] (Imaging) [address], [place], [address], 01/26/2019 09:26:11 01/28/2019 MAMMO, screening, tomosynthesis, bilateral, w/ CAD completed [facility] [address] [place] [address], [id number], 01/28/2019 20:22:13 01/28/2019 MAMMO, screening completed [email or web address] [place] [address], [address], 02/02/2019 09:08:34 Procedure Notes None recorded. Medical Equipment None Reported. Allergies Allergen ID Allergen Name Allergen Category Reaction Reaction Severity Criticality Documentation Date Start Date Code Code System Note Provider Name and Address Organization Details Recorded Time 58426 Substance with sulfonami de structure and antibacte rial mechanism of action (substanc e) medicatio n Not available Not available Not available 09/09/2010 11167 [id number] SNOMED Not Available [facility] 1 06:05:41 Medications Name Sig Start Date Stop Date Status Note LastModified by Organization Details LastModified Time Prescript ion - Prior Authoriza tion Request active Risendro joy 35 mg - PA approved Not Available Not Available Not Available Dilaudid 2 mg tablet Take 1/2 -1 Tablet 4 times a day as needed. active Not Available Not Available No t Available Anusol-HC 2.5 % rectal cream with applicato r APPLY TOPICALL Y TO THE AFFECTED TWICE A DAY active Not Available Not Available No t Available triamcino lone acetonide 0.5 % topical cream Apply a thin film to the affected skin areas by topical route 2 timesper day 2008 active Not Available Not Available Not Avai lable azithromy sreedhar 250 mg tablet 01/21 completed Not Available Not Available Not Available tretinoin 0.025 % topical cream 01/21 completed Not Available Not Available Not Available phenazopy ridine 200 mg tablet TK 1 T PO TID active Not Available Not Available No t Available prednison e 20 mg tablet 01/21 completed Not Available Not Available Not Available metronida zole 250 mg tablet Take 2 tablets every 6 hours by oral route for 7 days. 04/19 completed Not Available Not Available Not Available Nexium 40 mg capsule,d elayed release Take 1 capsule every day by oral route. active Not Available Not Available No t Available metronida zole 500 mg tablet Take 1 tablet every 8 hours by oral route. 04/19 completed Not Available Not Available Not Available prochlorp erazine maleate 10 mg tablet Take 1 tablet as needed by oral route. active Not Available Not Available No t Available ciproflox acin 500 mg tablet Take 1 tablet every 12 hours by oral route with meals for 7 days. 04/19 completed Not Available Not Available Not Available amoxicill in 500 mg tablet 04/30 completed Not Available Not Available Not Available Prevacid 15 mg capsule,d elayed release active one tab daily Not Available Not Available Not Available B Complex capsule 2006 active Take 1.00 caps daily Not Available Not Available Not Available oxycodone -acetamin ophen 5 mg-325 mg tablet active Not Available Not Available Not Available prednisol one acetate 1 % eye drops,elroy pension 08/13 completed Not Available Not Available Not Available Fosamax 70 mg tablet Take 1 tablet every week by oral route. 2008 active Not Available Not Available Not Avai lable Proctozon e-HC 2.5 % topical cream perineal applicato r INSERT 1 APPLICAT ORFUL RECTALLY TWICE A DAY NEEDED. 01/21 completed Not Available Not Available Not Available cephalexi n 500 mg capsule Take 1 capsule twice a day by oral route. 07/29 completed Not Available Not Available Not Available pantopraz ole 40 mg tablet,de layed release TK 1 T PO QD active Not Available Not Available No t Available erythromy sreedhar 5 mg/gram (0.5 %) eye ointment APPLY IN OD TID FOR 30 DAYS 04/19 completed Not Available Not Available Not Available tobramyci n 0.3 % eye drops INSTILL 1 DROP INTO AFFECTED EYE(S) BY OPHTHALM IC ROUTE EVERY 4 HOURS 04/30 completed Not Available Not Available Not Available Gentle Laxative (bisacody l) 5 mg tablet,de layed release TK 4 TS PO WITH 8 OUNCES OF WATER ONCE ON THE DAY BEFORE THE PROCEDUR E 04/30 completed Not Available Not Available Not Available promethaz ine 25 mg tablet Take 1 TABLET EVERY 8 hours for nausea as needed. active Not Available Not Available No t Available Calcium-6 00 600 mg (as calcium carbonate 1,500 mg) tablet 2006 active Take 1.00 tabs daily Not Available Not Available Not Available omeprazol e 20 mg capsule,d elayed release Take 1 capsule every day by oral route. 10/21 completed Not Available Not Available Not Available hydrochlo rothiazid e 25 mg tablet Take 1 tablet every day by oral route. 07/16 completed Not Available Not Available Not Available Cipro HC 0.2 %-1 % ear drops,elroy pension Instill 3 drops every 12 hours by otic route for 5 days. 02/24 completed Not Available Not Available Not Available cefuroxim e axetil 500 mg tablet active Not Available Not Available Not Available levofloxa sreedhar 500 mg tablet active Not Available Not Available No t Available Cipro 250 mg tablet Take 1 tablet every 12 hours by oral route. 2010 active Not Available Not Available Not Avai lable timolol maleate 0.5 % eye gel forming solution 06/04 completed Not Available Not Available Not Available atropine 1 % eye drops INSTILL 1 DROP INTO RIGHT EYE ONCE AWEEK 10/21 completed Not Available Not Available Not Available ondansetr on 4 mg disintegr ating tablet DIS 1 T ON THE TONGUE IN THE MORNING PRN active Not Available Not Available No t Available nabumeton e 500 mg tablet Take 1 tablet twice a day by oral route as needed. active Not Available Not Available No t Available tobramyci n 0.3 %-dexamet hasone 0.1 % eye drops,elroy pension 01/21 completed Not Available Not Available Not Available oxycodone 5 mg tablet Take 1/2 TABLET every 8 hours as need for severe pain active Not Available Not Available No t Available neomycin 3.5 mg/g-poly myxin B 10,000 unit/g-de xameth 0.1 % eye oint PLACE A RICE SIZE AMOUNT TO LID NODULE INTO RIGHT EYE BID FOR 14 DAYS 10/21 completed Not Available Not Available Not Available Bactrim DS 800 mg-160 mg tablet Take 1 tablet every 12 hours by oral route. 2009 active Not Available Not Available Not Avai lable risedrona te 35 mg tablet active Not Available Not Available Not Available moxifloxa sreedhar 0.5 % eye drops 10/21 completed Not Available Not Available Not Available nitrofura ntoin monohydra te/macroc rystals 100 mg capsule TK 1 C PO Q 12 H active Not Available Not Available No t Available cranberry 450 mg tablet Take 1 tablet 3 times a day by oral route. active Not Available Not Available No t Available chlorhexi dine gluconate 0.12 % mouthwash 04/30 completed Not Available Not Available Not Available beta carotene active Not Available Not Available Not Available cephalexi n 500 mg,one tab po bid active Not Available Not Available No t Available Prevacid active Not Available Not Avai lable Not Available Glucosami ne 1500 Complex active 2 tabs daily otc Not Available Not Available Not Available Zegerid 20 mg-1.1 gram capsule Take 1 capsule every day by oral route. 2010 active Not Available Not Available Not Avai lable GaviLyte- G 236 gram-22.7 4 gram-6.74 gram-5.86 gram oral solution 04/30 completed Not Available Not Available Not Available Vitamin D3 25 mcg (1,000 unit) chewable tablet 2009 active 1 qd Not Available Not Available Not Avai lable Zegerid OTC 1 day active Not Available Not Available Not Available Prolia 60 mg/mL subcutane ous syringe 60mg subcutan eous in the upper arm, upper thigh, or abdomen as a single dose once every 6 months; prior to giving, bring to room temperat ure in original containe r by allowing to stand for 15 minutes 07/29 completed Not Available Not Available Not Available Culturell e [facility]ive [facility] active Not Available Not Available Not Available Ilevro 0.3 % eye drops,elroy pension 10/21 completed Not Available Not Available Not Available Fluvirin 7461-0442 45 mcg (15 mcg x 3)/0.5 mL intramusc ular suspensio n ADM 0.5ML UTD active Not Available Not Available No t Available Unisom (diphenhy dramine) 04/22 completed Not Available Not Available Not Available Fluzone High-Dose 2014- (PF) 180 mcg/0.5 mL intramusc ular syringe 05/02 completed Not Available Not Available Not Available Fluzone High-Dose (PF) 180 mcg/0.5 mL intramusc ular syringe ADM 0.5ML IM UTD active Not Available Not Available No t Available Vitals Date Recorded Body height Body mass index (BMI) Body weight Heart rate Systolic blood pressure Diastolic blood pressure Provider Name and Address Organization Details Last Updated DateTime 8 154.94 cm 26.5 kg/m2 69739.9 3 g 84 /min 130 mm[Hg] 70 mm[Hg] Glory Colindres [facility] 8 13:50:20 Date Recorded Body height Body mass index (BMI) Body weight Heart rate Systolic blood pressure Diastolic blood pressure Provider Name and Address Organization Details Last Updated DateTime 8 155.58 cm 25.9 kg/m2 31306.7 5 g 82 /min 140 mm[Hg] 78 mm[Hg] [facility] 8 11:07:18 Date Recorded Body height Body mass index (BMI) Body weight Heart rate Respiratory rate Systolic blood pressure Diastolic blood pressure Provider Name and Address Organization Details Last Updated DateTime 8 155.58 cm 25.9 kg/m2 79631.1 5 g 96 /min 20 /min 130 mm[Hg] 60 mm[Hg] Anna Jaeger [facility] 8 15:38:38 Date Recorded Body height Body mass index (BMI) Body weight Heart rate Systolic blood pressure Diastolic blood pressure Provider Name and Address Organization Details Last Updated DateTime 9 155.58 cm 24.9 kg/m2 43374.7 9 g 80 /min 122 mm[Hg] 60 mm[Hg] Doreen santiago, [facility] 9 10:31:03 Date Recorded Body height Body mass index (BMI) Body weight Heart rate Systolic blood pressure Diastolic blood pressure Provider Name and Address Organization Details Last Updated DateTime 9 155.58 cm 24.2 kg/m2 04154.8 5 g 86 /min 138 mm[Hg] 66 mm[Hg] Patricia Mills, [facility] 9 10:46:19 Social History Question Answer Notes LastModified by Organizat ion Details LastModified Time Tobacco Smoking Status Never [facility]oker Not [facility] 08/09/2011 04:53:18 Do You Have An Advance Directive? No Information n ot available 08/09/2011 What Is Your Level Of Alcohol Consumption? None Information not available 04/06/2013 Do You Wear A Helmet When Biking? No Information not available 04/08/2015 Are You Blind Or Do You Have Difficulty Seeing? No Information not available 04/15/2014 What Is Your Level Of Caffeine Consumption? None One Decaf sometimes COFFEE-RAR E SODA Information not available 04/15/2014 How Much Tobacco Do You Chew? None Information n ot available 08/09/2011 Are You Deaf Or Do You Have Serious Difficulty Hearing? No Information not available 04/15/2014 What Type Of Diet Are You Following? REGULAR Some Lactose Intelerance , No Fruit Or Veggies Due To LBS. Information not available 04/19/2016 Which Illicit Or Recreational Drugs Have You Used? 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 0 0 [email or web address] Information not available 05/02/2016 Are There Any Guns Present In Your Home? No [id number] Information n ot available 08/09/2011 Live Alone Or With Others? With Others Brother Information not available 03/27/2012 CSRP - Narcotics No Information not available 04/08/2015 CSRP Contract Signed And Discussed No Information not available 04/08/2015 Does The Patient Have Difficulty Speaking Uzbek? No Information not available 03/29/2014 Does The Patient Have Difficulty Reading Uzbek? No Information not available 03/29/2014 Patient Has Health Care Proxy Signed And In Chart No Daughter Naveed Echeverria [email or web address] Information not available 06/04/2018 CSRP - Stimulants No Information not available 04/08/2015 CCM Consent Discussion 04/19/2016 Information not available 04/19/2016 Marital Status Since Informatio n not available 04/18/2015 Mosquito Repellent Used Routinely Yes Information not available 04/08/2015 What Was The Date Of Your Most Recent Tobacco Screening? 01/21/2019 Information n ot available 04/15/2019 How Many Children Do You Have? 3 [id number] Information n ot available 08/09/2011 Are There Any Occupational Health Risks Where You Work? Retired Information not available 05/27/2012 Seat Belts Used Routinely Yes [id number] Information n ot available 08/09/2011 Are You Sexually Active? No [id number] Information n ot available 08/09/2011 Smoke Alarm In Home Yes [id number] Information n ot available 08/09/2011 How Much Tobacco Do You Smoke? No Information not available 04/08/2015 What Types Of Sporting Activities Do You Participate In? None Information not available 03/27/2012 General Stress Level Low Information not available 03/27/2012 Do You Use Sunscreen Routinely? Yes [id number] Information n ot available 08/09/2011 Sex: Unknown Functional Status Question Answer Note LastModified by Organizat ion Details LastModified Time Do you have difficulty walking or climbing stairs? No Information not available 04/15/2014 Do you have difficulty doing errands alone? No Information not available 04/15/2014 Do you have difficulty dressing or bathing? No Information not available 04/15/2014 What is your exercise level? Occasional [id number] Information n ot available 08/09/2011 Mental Status Question Answer Note LastModified by Organization D etails LastModified Time Do you have difficulty concentrating, remembering or making decisions? No Information no t available 04/15/2014 Family History Relationship Description Onset Age of this Age Resolved Age Notes LastModified by Organization Details LastModified Time Father Tuberculosis [email or web address] Not avail able 04/30/2018 15:16:16 Father Pulmonary emphysema [email or web address] Not available 2017 15:16:34 Brother Tuberculosis [email or web address] Not avai lable 04/30/2018 15:16:16 Brother Malignant neoplastic disease [email or web address] Not available 2017 15:16:56 Mother Malignant tumor of breast [email or web address] Not available 2017 15:16:24 Notes:brother-; father and b roxnaa had tb, mother breast cancer. Medical History Condition Response Thyroid Disease GERD Y EYE Y Colon Polyps Y Irritable Bowel Syndrome Y Diverticulitis Y Osteoporosis Y Gynecological History Statement/Question Response Hysterectomy Y Obstetrics History GPAL:G 0 P 0 0 0 0 Immunizations Vaccine Type Date Status Note Provider Nam e and Address Organization Details Recorded Time Influenza, split virus, trivalent, preservative 9 completed Not Available [facility] 10/10/2019 02:38:54 Influenza, split virus, trivalent, preservative 1 completed Not Available [facility] 10/10/2019 02:31:48 influenza, unspecified formulation 2 completed Not Available [facility] 08/08/2011 05:21:07 influenza, unspecified formulation 5 completed Not Available [facility] 08/08/2011 05:21:29 pneumococcal polysaccharide PPV23 7 completed Not Available [facility] 08/08/2011 05:21:29 influenza, unspecified formulation 7 completed Not Available [facility] 08/08/2011 05:21:55 Td(adult) unspecified formulation 8 completed Not Available [facility] 08/08/2011 05:21:55 influenza, unspecified formulation 8 completed Not Available [facility] 08/08/2011 05:21:55 Influenza, split virus, trivalent, preservative 2 completed Not Available [facility] 10/10/2019 02:33:39 Influenza, split virus, trivalent, PF 3 completed Not Available [facility] 10/10/2019 02:18:57 zoster live 8 completed Not Available [facility] 08/08/2011 05:22:52 Pneumococcal conjugate PCV 13 5 completed Not Available [facility] 10/10/2019 02:28:18 Novel [id number] 0 completed Not Available [facility] 10/10/2019 02:25:07 Influenza, high-dose, trivalent, PF 6 completed Not Available [facility] 10/10/2019 02:21:03 Influenza, split virus, trivalent, PF 4 completed Not Available [facility] 2019 02:10:39 Influenza, high-dose, trivalent, PF 7 completed Not Available [facility] 10/10/2019 02:21:41 Influenza, high-dose, trivalent, PF 5 completed Emmanuelle Perez RN, BSN [facility] 07/17/2015 12:34:45 Influenza, high-dose, trivalent, PF 8 completed Not Available [facility] 10/10/2019 02:23:03 Influenza, split virus, trivalent, preservative 0 completed Not Available [facility] 10/10/2019 02:27:08 Past Encounters Encounter ID Performer Location Encounter Start Date Encounter Closed Date Diagnosis/Indication Diagnosis SNOMED-CT Code Diagnosis ICD10 Code Diagnosis Note [id number] [facility], OFFICE [address] [facility] [place] [address] 08/21/2000 11:45:00 10/13/2008 02:02:29 [id number] [facility], OFFICE [address] [facility] [place] [address] 09/02/2000 14:15:00 10/13/2008 02:02:29 [id number] [facility] [address] [place] [address] 01/11/2001 10:00:00 10/13/2008 02:02:29 [id number] [facility], OFFICE [address] [facility] [place] [address] 02/19/2001 16:15:00 10/13/2008 02:02:29 [id number] [facility], OFFICE [address] [place] [address] 02/26/2001 10:30:00 10/13/2008 02:02:29 [id number] [facility], OFFICE [address] [facility] [place] [address] 01/02/2001 10:30:00 10/13/2008 02:02:29 [id number] [facility], OFFICE [address] [place] [address] 03/28/2001 11:00:00 10/13/2008 02:02:29 [id number] Radiology , [address] [address] 03/20/2001 14:00:00 10/13/2008 02:02:29 [id number] [facility], OFFICE [address] [place] [address] 07/23/2001 11:45:00 10/13/2008 02:02:29 [id number] [facility], OFFICE [address] [place] [address] 09/26/2001 14:45:00 10/13/2008 02:02:29 [id number] [facility], OFFICE [address] [place] [address] 11/21/2001 15:30:00 10/13/2008 02:02:29 [id number] FRANKO [facility], OFFICE [address] [place] [address] 12/29/2001 09:45:00 10/13/2008 02:02:29 [id number] [facility], OFFICE [address] [place] [address] 03/23/2002 10:28:26 10/13/2008 02:02:29 [id number] [facility], OFFICE [address] [place] [address] 6 04/06/2002 10:46:02 10/13/2008 02:02:29 [id number] FP [facility], OFFICE 70 [facility] [place] [address] 04/15/2002 09:55:33 10/13/2008 02:02:29 [id number] Radiology , [facility] 31 [facility] [place] [address] 04/20/2002 12:03:48 10/13/2008 02:02:29 [id number] LAB - [address] [place] [address] 04/24/2002 11:52:43 10/13/2008 02:02:29 [id number] FP [facility], OFFICE 70 [facility] [place] [address] 05/08/2002 10:10:02 10/13/2008 02:02:29 [id number] FP [facility], OFFICE 70 [facility] [place] [address] 6 06/02/2002 10:02:44 10/13/2008 02:02:29 [id number] FP, [facility], OFFICE 70 [facility] [place] [address] 09/03/2002 15:26:30 10/13/2008 02:02:29 [id number] FP [facility], OFFICE 70 [facility] [place] [address] 6 10/20/2002 15:09:26 10/13/2008 02:02:29 [id number] FP, [facility], OFFICE [address] [facility] [place] [address] 6 11/18/2002 15:24:24 10/13/2008 02:02:29 [id number] FP, [facility], OFFICE 70 [facility] [place] [address] 6 02/17/2003 11:13:26 10/13/2008 02:02:29 [id number] LAB - [facility] 70 [facility] [place] [address] 04/01/2003 09:02:04 10/13/2008 02:02:29 [id number] , [facility], OFFICE [address] [facility] [place] [address] 03/31/2003 10:18:52 10/13/2008 02:02:29 [id number] Radiology , [facility] [address] [place] [address] 04/06/2003 13:30:30 10/13/2008 02:02:29 [id number] LAB - C [address] [place] [address] [place] [address] 1 04/21/2003 11:18:36 10/13/2008 02:02:29 [id number] Radiology , [facility] 70 [facility] [place] [address] 6 04/28/2003 09:22:40 10/13/2008 02:02:29 [id number] , [facility], OFFICE 70 [facility] [place] [address] 6 09/07/2003 09:47:15 09/07/2003 12:29:27 [id number] , [facility], OFFICE 70 [facility] [place] [address] 6 01/24/2004 14:57:53 01/24/2004 17:30:12 [id number] , [facility], OFFICE 70 [facility] [place] [address] 04/05/2004 10:26:08 04/05/2004 12:21:18 [id number] Radiology , [facility] [address] [place] [address] 04/12/2004 11:02:10 04/13/2004 09:25:21 [id number] , [facility], OFFICE 70 [facility] [place] [address] 6 04/17/2004 15:30:13 04/17/2004 16:37:04 [id number] LAB - [facility] [address] [place] [address] 04/24/2004 15:03:32 04/24/2004 15:06:17 [id number] , [facility], OFFICE 70 [facility] [place] [address] 6 05/16/2004 14:21:17 05/16/2004 15:36:35 [id number] Physical Therapy, [facility] [place] [facility] [place] [address] 05/22/2004 14:17:10 05/22/2004 15:34:02 [id number] , [facility], OFFICE [address] [place] [address] 06/12/2004 14:03:54 06/13/2004 08:44:24 [id number] , [facility], OFFICE [address] [place] [address] 6 11/28/2004 10:48:03 11/28/2004 14:51:49 [id number] Radiology , [facility] 70 [place] [address] 6 04/02/2005 11:29:30 04/03/2005 08:57:38 [id number] , [facility], OFFICE [address] [place] [address] 6 04/09/2005 10:33:55 04/09/2005 13:48:49 [id number] Radiology , [facility] 70 [place] [address] 6 04/17/2005 10:42:51 10/13/2008 02:02:29 [id number] Radiology , [address] [address] 05/08/2005 16:07:24 10/13/2008 02:02:29 [id number] [facility], OFFICE [address] [place] [address] 6 05/10/2005 15:23:51 10/13/2008 02:02:29 [id number] LAB - [address] [address] 07/04/2005 09:43:47 07/04/2005 09:44:04 [id number] [facility], OFFICE [address] [place] [address] 6 08/01/2005 16:31:52 10/13/2008 02:02:29 [id number] Eye Care, [facility] [address] [place] [address] 6 03/18/2006 14:20:49 10/13/2008 02:02:29 [id number] , [facility], OFFICE [address] [place] [address] 03/28/2006 14:21:50 03/28/2006 16:26:32 [id number] , [facility], OFFICE [address] [place] [address] 6 04/11/2006 08:54:06 04/11/2006 11:24:55 [id number] , [facility], OFFICE [address] [place] [address] 6 04/15/2006 14:57:06 04/15/2006 16:14:28 [id number] [facility], [facility] [address] [place] [address] 06/12/2006 08:17:24 06/13/2006 07:25:18 [id number] [facility], OFFICE [address] [place] [address] 6 06/27/2006 15:08:52 06/27/2006 16:35:06 [id number] [facility], OFFICE 70 [facility] [place] [address] 6 11/20/2006 11:08:58 11/21/2006 07:58:56 [id number] [facility], OFFICE 70 [facility] [place] [address] 6 12/24/2006 11:00:59 12/25/2006 11:23:21 [id number] Physical Therapy, [facility] [place] [address] 12/27/2006 15:53:15 12/30/2006 17:04:09 [id number] Physical Therapy, [facility] [place] [facility] [place] [address] 01/13/2007 10:55:41 01/13/2007 16:17:17 [id number] Physical [facility], [address] [place] [address] 01/27/2007 14:28:30 01/28/2007 09:18:42 [id number] LAB - [address] [place] [address] 01/27/2007 10:43:06 01/27/2007 10:43:26 [id number] Physical Therapy, [facility] [place] [address] 02/10/2007 10:22:04 02/10/2007 15:19:14 [id number] Physical [facility], [facility] Paul [facility] [place] [address] 02/19/2007 11:53:15 02/19/2007 14:13:02 [id number] [facility], OFFICE 70 [facility] [place] [address] 6 02/20/2007 11:06:26 02/20/2007 15:54:33 [id number] Radiology , [facility] 70 [facility] [place] [address] 02/20/2007 11:31:53 02/21/2007 09:16:35 [id number] FP, [facility], OFF[address] [place] [address] 03/01/2007 10:28:47 03/01/2007 13:23:12 [id number] FP, [facility], OFFICE [address] [place] [address] 04/02/2007 15:01:36 04/03/2007 08:21:50 [id number] FP, [facility], OFFICE 70 [facility] [place] [address] 6 04/14/2007 15:11:02 04/14/2007 16:37:50 [id number] FP, [facility], OFFICE 70 [facility] [place] [address] 6 06/09/2007 15:04:07 06/13/2007 12:49:41 [id number] Radiology , [facility] [address] [place] [address] 6 06/26/2007 10:13:18 06/27/2007 09:20:06 [id number] FP, [facility], OFFICE [address] [facility] [place] [address] 6 07/30/2007 15:24:07 10/13/2008 02:02:29 [id number] FP, [facility], OFFICE [address] [facility] [place] [address] 6 09/20/2007 09:17:48 10/13/2008 02:02:29 [id number] FP, [facility], OFFICE [address] [facility] [place] [address] 6 12/09/2007 15:04:32 10/13/2008 02:02:29 [id number] FP, [facility], OFFICE [address] [facility] [place] [address] 6 01/30/2008 11:39:32 10/13/2008 02:02:29 [id number] FP, [facility], OFFICE [address] [facility] [place] [address] 6 04/13/2008 15:18:25 10/13/2008 02:02:29 [id number] FP, [facility], OFFICE [address] [facility] [place] [address] 6 07/14/2008 16:21:35 07/14/2008 16:21:40 [id number] FP, [facility], OFFICE [address] [facility] [place] [address] 6 08/02/2008 15:47:27 10/13/2008 02:02:29 [id number] FP, [facility], OFFICE [address] [facility] [place] [address] 6 10/06/2008 14:26:37 10/13/2008 02:02:29 [id number] [facility], OFFICE [address] [facility] [place] [address] 11/18/2008 14:26:17 11/24/2008 11:20:41 [id number] Radiology , [facility] 70 [facility] [place] [address] 11/18/2008 14:43:54 11/18/2008 17:10:40 [id number] , [facility], OFFICE 70 [facility] [place] [address] 12/15/2008 12:05:15 12/17/2008 12:42:38 [id number] [facility], OFFICE 70 [facility] [place] [address] 12/23/2008 15:34:50 12/27/2008 14:06:35 [id number] [facility], OFFICE 70 [facility] [place] [address] 6 02/09/2009 14:28:33 02/11/2009 15:21:27 [id number] [facility], OFFICE [address] [place] [address] 04/11/2009 15:07:16 04/13/2009 11:16:04 [id number] [facility], OFFICE [address] [place] [address] 6 05/04/2009 15:54:44 05/05/2009 14:57:03 [id number] [facility], OFFICE [address] [place] [address] 6 06/01/2009 11:10:23 06/06/2009 11:28:11 [id number] LAB - [facility] 70 [place] [address] 6 04/11/2009 15:59:01 04/11/2009 15:59:16 [id number] Radiology , [facility] 70 [place] [address] 07/25/2009 11:08:41 07/27/2009 11:30:05 [id number] [facility], OFFICE [address] [place] [address] 6 09/01/2009 11:05:17 09/05/2009 09:52:21 [id number] [facility], OFFICE [address] [place] [address] 6 10/06/2009 11:03:54 10/07/2009 12:30:46 [id number] [facility], OFFICE 70 [place] 6 11/04/2009 15:37:36 11/07/2009 14:10:42 [id number] , [facility], OFFICE [address] [place] [address] 6 12/13/2009 15:26:07 12/15/2009 10:01:44 [id number] , [facility], OFFICE 70 [place] 6 12/28/2009 09:09:33 12/30/2009 09:59:30 [id number] [facility], OFFICE 70 [place] 6 01/10/2010 10:54:36 01/10/2010 15:02:05 [id number] [facility], OFFICE [address] [place] [address] 03/28/2010 10:12:46 03/31/2010 08:59:43 [id number] Radiology , [facility] 70 [place] 6 03/28/2010 11:03:26 03/29/2010 12:23:35 [id number] [facility], OFFICE 70 [place] 6 04/17/2010 09:46:06 04/18/2010 09:19:57 [id number] [facility], OFFICE [address] [place] [address] 06/09/2010 14:40:41 06/12/2010 09:51:34 [id number] [facility], OFFICE [address] [place] [address] 6 09/09/2010 12:21:55 09/13/2010 12:07:02 [id number] , [facility], OFFICE [address] [place] [address] 01/18/2011 16:27:53 01/22/2011 08:37:10 [id number] [facility], OFFICE [address] [place] [address] 6 02/07/2011 15:45:56 02/09/2011 10:42:53 [id number] [facility], OFFICE 70 [place] 6 02/20/2011 09:12:18 02/22/2011 09:23:32 [id number] FP, [facility], OFFICE 70 [place] 6 02/26/2011 10:29:49 02/27/2011 14:00:13 [id number] FP, [facility], OFFICE 70 [place] 6 03/07/2011 10:28:05 03/09/2011 08:40:46 [id number] FP, [facility], OFFICE 70 [id number] 6 03/28/2011 14:53:11 03/29/2011 10:06:36 [id number] FP, [facility], OFFICE 70 [id number] 6 05/13/2011 09:40:13 05/13/2011 10:11:20 [id number] FP, [facility], OFFICE 70 [facility] [place] 6 05/23/2011 14:58:08 05/23/2011 15:28:50 [id number] FP, [facility], OFFICE [address] [place] [address] 6 05/30/2011 15:12:19 05/30/2011 15:39:54 [id number] FP, [facility], OFFICE 70 [place] 6 06/15/2011 09:27:02 06/18/2011 11:58:32 [id number] Radiology , [facility] 70 [facility] [place] [address] 08/09/2011 10:57:20 08/10/2011 12:04:08 [id number] FP, [facility], OFFICE 70 [facility] [place] [address] 6 08/09/2011 11:24:36 08/10/2011 08:59:25 [id number] FP, [facility], OFFICE [address] [facility] [place] [address] 6 09/05/2011 15:47:18 09/07/2011 09:03:03 [id number] FP, [facility], OFFICE [address] [facility] [place] [address] 6 12/24/2011 16:10:22 12/24/2011 16:41:25 [id number] FP, [facility], OFFICE [address] [facility] [place] [address] 01/02/2012 15:17:18 01/02/2012 16:01:26 [id number] , [facility], OFFICE 70 [facility] [place] [address] 02/20/2012 11:47:36 02/21/2012 10:06:54 [id number] , [facility], OFFICE [address] [place] [address] 02/28/2012 15:26:37 02/29/2012 08:24:19 [id number] , [facility], OFFICE [address] [place] [address] 03/27/2012 11:27:30 03/27/2012 11:58:47 [id number] , [facility], OFFICE [address] [place] [address] 05/22/2012 16:00:31 05/23/2012 10:13:25 [id number] , [facility], OFFICE [address] [place] [address] 6 05/27/2012 16:24:54 05/28/2012 12:48:23 [id number] MD FRANKO Milian [facility], OFFICE [address] [place] [address] 08/26/2012 13:46:36 08/26/2012 14:18:22 [id number] Claudette Franco [facility], OFFICE [address] [place] [address] 09/02/2012 10:43:50 09/03/2012 14:05:42 [id number] Mary Angel NP , [facility], OFFICE [address] [place] [address] 6 10/06/2012 15:56:03 10/06/2012 16:37:30 [id number] Claudette Franco [facility], OFFICE [address] [place] [address] 6 10/15/2012 09:52:23 10/16/2012 12:54:52 [id number] MD FRANKO Sotelo, [facility], OFFICE [address] [place] [address] 6 10/18/2012 09:49:09 10/20/2012 13:17:23 [id number] Claudette ABDUL [facility], OFFICE [address] [place] [address] 11/05/2012 10:46:36 11/06/2012 11:24:05 [id number] FRANKO [facility], OFFICE [address] [place] [address] 6 04/06/2013 11:19:58 04/07/2013 13:17:17 [id number] [facility]. BETTY ABDUL, [facility], OFFICE [address] [place] [address] 6 06/10/2013 06:21:35 06/10/2013 16:25:35 Influenza vaccine needed [id number] [facility]ette [facility], OFFICE [address] [place] [address] 08/12/2013 11:54:44 08/13/2013 10:15:52 Impacted cerumen [id number] successful IRRIGATION DONE, f/u prn, [id number] SONU Correa, [facility], OFFICE [address] [place] [address] 08/19/2013 16:26:04 08/24/2013 10:18:40 Bursitis of shoulder [id number] Patient with clinical presentati on of left shoulder subacromia l bursitis. Exquisitel y tender in the subacromia l area. Also with positive Hawkin's/N eer's signs. No deformity noted. Shoulder ROM full, but tender with full foward flexion and internal rotation. Normal motor strength of LUE. Patient declines cortisone injection due to previous intoleranc e and ineffectiv eness. Recommende d to use Nabumetone and Oxycodone as needed for pain. Rehabilita tive exercise discussed and demonstrat ed. Consider Physical Therapy referral if symptoms do not improve. Indication s for UC/ER use discussed. Advised to contact the clinic if her symptoms worsen. [id number] Claudette [facility], OFFICE [address] [place] [address] 10/07/2013 10:12:00 10/08/2013 09:45:51 Contusion of chest 83503352 tylenol, heat or ice, rest, reassuranc e [id number] Claudette [facility], OFFICE [address] [place] [address] 12/28/2013 14:42:12 12/29/2013 09:52:41 Irritable bowel syndrome 89733180 I still think she has mild IBS. avoid possible offending foods like fatty foods, tomatos products, dairy. call if not settling down. [id number] Jericho Laureano , [facility], OFFICE [address] [place] [address] 03/29/2014 13:59:52 03/30/2014 16:21:31 Dysuria 52289067 resolved. never sure she had UTI- as there was never a urinanalys is at first before med. in hospital-h ad microscpic blood in urine but culture was negative.a nd repeat u/a neg she couldhave had a viral infection or partially treated uti. plan stop ceftin today. and follow I review hosptial labs and H and P. [id number] Kathie schmitt , [facility], OFFICE [address] [place] [address] 04/15/2014 14:58:21 04/16/2014 09:36:29 Adult health examination [id number] see Risk Assessment and Lifestyle Change Counseling section above Counseling [id number] Osteoporosis [id number] se mark Murray. urge weight bearing exericses Gastroesop hageal reflux disease 264739461 controlled nexium otc [id number] CANDY Otto , [facility], OFF[address] [place] [address] 06/29/2014 10:48:45 06/30/2014 08:34:30 Strain of muscle of face 612688185 probable muscular strain of left side of face, advised to use ice to affected area several times a day, ibuprofen 200 mg 3 tablets 3 times a day and if no improvemen t in the next 5-7 days return to office for further reevaluati on. [id number] Calos Valiente MD , [facility], OFFICE [address] [place] [address] 10/27/2014 11:12:18 11/04/2014 12:55:15 Urinary tract infectious disease 19523975 recurrent due to postmenopa usal- not present now- could try to treat self next time gets typical sx. If not better, call . could consider estrogen cream. no sx now rx given, if needs in future. 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 going to [facility] tomorrow Impacted cerumen 36089116 successful IRRIGATION DONE, f/u prn, [id number] Lex Whelan MD , [facility], OFF[address] [place] [address] 04/08/2015 16:13:28 04/08/2015 17:32:38 Carpal tunnel syndrome 50788856 [id number] Binta Lam MA , [facility], OFF[address] [place] [address] 04/18/2015 11:36:54 04/18/2015 12:27:32 Adult health examination 022415863 see Risk Assessment and Lifestyle Change Counseling section above Counseling [id number] Active or passive immunization 279379848 Malignant melanoma [facility]6451282 [facility] result abnormal 190845395 there is a small nodule found on CT scan. [facility] wants repeat CT scan in three months Senile hyperkeratosis 902516270 on neck ret for removal md at [facility] wants it removed.It isn't malignant. [id number] Neeta Franks , [facility], OFF[address] [place] [address] 05/18/2015 12:10:39 05/19/2015 12:07:05 Senile hyperkeratosis 459582021 cryo and curettage done [id number] Viral Baig MD , [facility], OFF[address] [place] [address] 08/28/2015 10:00:58 08/28/2015 10:25:37 Diverticulitis of colon 892820875 K57.32 [id number] Calos Valiente MD , [facility], [address] [place] [address] 08/31/2015 13:20:53 08/31/2015 14:10:01 Left lower quadrant pain 795195005 R10.32 possible mild diverticul tis. add flagyll. call next week with progress note. couldn't giveadequa te amount of urine. if not better in 2 days- get urine dip and micro and u/c to r/o stones and infection [id number] Neeta Franks , [facility], OFF[address] [place] [address] 10/12/2015 12:07:23 10/13/2015 13:48:26 Irritable bowel syndrome 56466622 K58.9 I still think she has mild IBS. try colace for constipati on. cont culturelee . and veggies. [id number] Calos Valiente MD , [facility], OFF[address] [place] [address] 04/19/2016 10:14:44 04/19/2016 11:01:52 Adult health examination 517715593 Z00.00 see Risk Assessment and Lifestyle Change Counseling section above Counseling 027750038 Z71 .9 Gastroesop hageal reflux disease 398235791 K21.9 controlled with omeprazole Osteoporosis 50478314 M8 1.[address] Murray. urge weight bearing exericises Malignant melanoma of eye 294166293 C69.90 being treated at [facility] needs lft's tested for melanoma Irritable bowel syndrome 85764554 K58.9 controled with current diet [id number] Calos Valiente MD , [facility], [address] [place] [address] 05/02/2016 13:43:07 05/08/2016 13:54:13 Shoulder pain 59968737 M25.512 maybe mild impingemen t syndrome - getting better on own plan try nsaid. ret prn Impacted cerumen 2516205 6 H61.23 successful IRRIGATION DONE, f/u prn, [id number] Calos Valiente MD , [facility], [address] [place] [address] 07/04/2016 11:10:41 07/04/2016 11:44:33 Active or passive immunization [id number] Z23 Chest wall pain [id number] 6 R07.89 soft tissue bruise probably from tight bra- recommend larger bra until loses weight [id number] , [facility], [address] [place] [address] 09/25/2016 12:13:03 09/25/2016 12:59:28 Irritable bowel syndrome 59996570 K58.9 try eliminatin g fructans and galacto-ol iosacchari dse no wheat , barley oats. 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 follow [id number] Calos Valiente MD , [facility], [address] [place] [address] 04/22/2017 11:35:56 04/22/2017 12:24:28 Adult health examination 611902800 Z00.00 see Risk Assessment and Lifestyle Change Counseling section above Counseling [id number] Z71 .9 Irritable bowel syndrome 25737902 K58.9 better with certain dietary restrictio ns Malignant melanoma of eye [id number] C69.90 see opth in [place] [facility] [id number] M8 1.[address] Murray. urge weight bearing exericises [id number] Lex Whelan MD , [facility], [address] [place] [address] 06/04/2017 16:35:56 06/04/2017 17:17:19 Hordeolum externum of upper eyelid 323756878 H00.115 [id number] Yazmin Pedraza LPN , [facility], [address] [place] [address] 06/06/2017 16:15:53 06/07/2017 08:24:28 Active or passive immunization [id number] Z23 [id number] Calos Valiente MD , [facility], [address] [place] [address] 07/02/2017 11:12:18 07/03/2017 10:13:51 Irritable bowel syndrome 49328574 K58.9 tried various dietary restrictio n and fiber supplement s, TTG neg. 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 on probiotics - get GI input besides due for another colonoscop y Internal hemorrhoids 904 33419 K64.8 continue proctozone [id number] Calos Valiente MD , [facility], [address] [place] [address] 10/21/2017 11:42:26 10/21/2017 12:36:17 Irritable bowel syndrome 89458757 K58.9 quiet now Malignant melanoma of eye 373464296 C69.90 see opth in [place] Osteoporosis 50236456 M8 1.[address] Estrada Gastroesop hageal reflux disease 920341970 K21.9 PPI qd but take one day off a week [id number] Tru Roberts MD [facility], [facility] [address] [place] [address] 11/14/2017 08:53:54 11/14/2017 13:51:26 [id number] Sawyer sEtrada MD Endocr[address] [address] 04/30/2018 14:51:37 04/30/2018 16:15:53 Osteoporosis 37921469 M81.0 -reassess bone density test -dairy 3 times daily -practice balance by dancing -ca 600 +d tab, 1/2 tab am and 1/2 tab pm -vit d 1000units tabs, 2 tab winter, 1 summer Vitamin D deficiency 347 97896 E55.9 [id number] BOOM Steele FP, [facility], [address] [place] [address] 07/02/2018 13:41:37 07/02/2018 14:24:34 Active or passive immunization 208425470 Z23 Strain of muscle and/or tendon of lower leg 395648906 S86.911A ankle strain- rest, rom exercises Injury of finger 7220829 8 S69.92XA strst, rom exercise- f/u if not improving in coming 1-2 wkseain- [id number] Sawyer Estrada MD Endocrino logy, [address] [address] 07/16/2018 10:45:31 07/16/2018 11:47:48 Osteoporosis 43502321 M81.0 -reassess bone density test -dairy 3 times daily -practice balance by dancing -limit calcium to 250mg via supplement -vit d 1000units tabs, 2 tab winter, 1 summer Vitamin D deficiency 347 76056 E55.9 [id number] Ty Sams MD FP, [facility], [address] [place] [address] 08/13/2018 15:28:45 08/13/2018 16:22:01 Adult health examination 795395954 Z00.00 see Risk Assessment and Lifestyle Change Counseling section above Counseling 290289841 Z71 .9 Depression screening 171 868381 Z13.89 depression screening tool administer ed, entered into emr, scored and discussed, time greater than 7.5 minutes Solitary n odule of lung 289282572 R91.1 f/u ct with no change out far enough to consider benign Malignant melanoma of eye 390602782 C69.90 followed by [facility] general Gastroesop hageal reflux disease 305866925 K21.9 continue pantaprazo le Pre-surger y evaluation 423978966 Z01.818 clear for eye surgery [id number] Sawyer Estrada MD Endocrino logy, [facility] [address] [place] [address] 01/21/2019 10:17:59 01/21/2019 11:16:38 Osteoporosis 35403884 M81.0 -dairy or dairy replacemen t 2 times daily-spin ach-practi ce balance by dancing - no calcium supplement s-vit d 1000units tabs, 2 tab winter, 1 summer -labs, if normal, ask me to order to order prolia, then authorize prolia to be sent to [facility] for administra tion, then book appointmen t with endocrine nurse to administer every 6mo Vitamin D deficiency 347 22431 E55.9 [id number] Sawyer Estrada MD Endocrino logy, [facility] [address] [place] [address] 07/29/2019 10:25:03 07/29/2019 13:23:12 Osteoporosis 49543119 M81.0 -add risedronat e 35 mg by mouth once weekly with a full glass of water on an empty stomach while sitting or standing; do not lie down after taking risedronat e for at least 1h -soy milk or other replacemen t dairy once daily, almonds-ad d kale-aim for calcium 1000mg via diet then recheck urine calcium 24h Vitamin D deficiency 347 90726 E55.9 -vitamin d 1000units by mouth once daily Health Concerns Section Related Observation LastModified by Organization Detai ls LastModified Time None Recorded Concern Status LastModified by Organization Details LastModified Time None Recorded Advance Directives Directive N: Payers Encounter Date Sequence Insurance Name Policy Number Policy Tamayo Covered Member ID Tamayo Member ID Guarantor Name 07/02/2018 1 [place] [employer] Irene Porter [id number] Irene Porter 07/02/2018 2 [employer] HE[employer] OPTIONS - PLAN T2 (INDEMNITY) Irene Porter [id number] Irene Porter 07/16/2018 1 [place]: [facility] Irene Porter [id number] Irene Porter 07/16/2018 2 [employer] HE[employer] OPTIONS - PLAN T2 (INDEMNITY) Irene Porter [id number] Irene Porter 08/13/2018 1 MED[place]: [facility] Irene Porter [id number] Irene Porter 08/13/2018 2 [employer] OPTIONS - PLAN T2 (INDEMNITY) Irene Porter [id number] Irene Porter 01/21/2019 1 [place]: [facility] Irene Porter [id number] Irene Porter 01/21/2019 2 [employer] HE[employer] OPTIONS - PLAN T2 (INDEMNITY) Irene Porter [id number] Irene Porter 07/29/2019 1 [place]: [facility] Irene Porter [id number] Irene Porter 07/29/2019 2 [employer] HE[employer] OPTIONS - PLAN T2 (INDEMNITY) Irene Aikena [id number] Irene Porter Notes Date Note Type Note Provider Name and Address Organization Details Recorded Time 07/02/2018 text/html AFTER GARDENING 4 days ago, R foot pain and left 3rd finger had been hurting x > month. no swelling, Irene Sams, BOOM [address] [place] [address], [phone], [facility] 07/05/2018 14:22:41 07/16/2018 text/html 77yo woman, with a history of GERD, hysterectomy without oophorectomy 1980, uveal melanoma, status post radiotherapy in 2014, kindly referred by Dr. Valiente and Dr. Sams for osteoporosis, complicated by hip fracture at age 60y, status post alendronate 2002 to 2009, and Seven thyroiditis. calcium 1100mg daily via supplements, she is unsure about ca in diet, soy milk 2 cups at least daily 600mg yogurt activia 150mg daily no kale bok marina tofu salmon sardines she can't have raw veggies fruit due to IBS, cheese weekly spinach weekly she tried a hctz, which caused upset stomach no falls fractures she will have bmd in a month 10/02/17 cr 0.6, gfr gt 60, ca 9.8, 07/05/17 tsh 0.8. I spent 30min reviewing past records in preparation for this visit. I suggest reassessing labs and bone density imaging. If bmd is stable to improved, observation would seem appropriate. However, if bmd declines much, then prolia or reclast could be considered. She prefers to return as needed. she Sawyer Estrada MD [address] [place] [address], [phone], [facility] 07/16/2018 11:51:02 08/13/2018 text/html Physical Exam/FemaleReported bypatient.PHAPatient is here for a Wellness Visit. She describes her health status as fair. Patient's health is worse than last year.Notes:being treated for melanoma right eye at [facility]-is scheduled for surgery nd needs clearanceRisk Assessment and Lifestyle Change Counseling 65+ (Medicare)Reported bypatient.Fracture Risk Assessment:Has adequate calcium intake; Taking Vitamin D supplement Functional Status:Patient does not have trouble hearing the television or radio when others do not.; Patient does not have to strain or struggle to hear/understand conversations; Patient does not need help with preparing meals, transportation, shopping, taking medicine, managing finances, or other activities of daily living.; Patient does not have visual loss that interferes with daily activities; Patient was not unsteady and did not take longer than 30 seconds during the timed get up and go test. Diet:Counseled about eating a diet low in trans and saturated fats and high in fiber, fruits and vegetables; Counseled about appropriate calcium intake and good dietary sources of calcium.; Discussed the value of a Mediterranean diet , and eating more fruits and vegetables Exercise counseling:Discussed the importance of weight bearing exercise Safety:Counseled about fall risk from throw rugs and the need for hand rails on steps and in bath eliminated onions and asparagus and lactaid milk- IBS is better Ty Sams MD [address] [place] [address], [phone], [facility] 08/21/2018 15:29:01 01/21/2019 text/html 78yo woman, with a history of GERD, hysterectomy without oophorectomy 1980, uveal melanoma, status post radiotherapy in 2014, kindly referred by Dr. Sams for osteoporosis, complicated by hip fracture at age 60y, status post alendronate 2002 to 2009, and Seven thyroiditis. 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 Sams for osteoporosis, complicated by hip fracture at age 60y, status post alendronate 2002 to 2009, and Seven thyroiditis. prolia is too expensive at $500, cousin takes risedronate stopped alendronate due to too long duration years ago no trouble swallowing heartburn once because of bed not on blocks 3 weeks ago, now resolved no trouble with alendronate in the past no new falls or fractures calcium pills 1/2 am and 1/2 pm soy milk 1cup breakfastalmonds current 600mg calcium once daily Sawyer Estrada MD [address] [place] [address], [phone], [facility] 07/29/2019 11:14:10 OBGyn Episode No OBEpisode recorded.
[2024-10-27 14:10] LABS: Blood Urea Nitrogen 16 mg/dL (9-16); Estimated Glomerular Filt Rate > 60
== END 2024-10-27 11:48 | disposition home or self-care (01) ==
LOC: HO.HMGCLDS 11:47
PROVIDERS: PCP Internal Medicine; Visit Provider Internal Medicine
DX: R16.0 Hepatomegaly, not elsewhere classified (principal); H61.23 Impacted cerumen, bilateral; L98.9 Disorder of the skin and subcutaneous tissue, unspecified
CPT/HCPCS: 36415; 82565; 84520; 99212

== ENCOUNTER 2024-10-27 11:58 | Outpatient (AMB) | payer MEDICARE, SELFPAY ==
[2024-10-27 13:01] VITALS: BP 124/80; PULSE 84; TEMP 37.1; O2SAT 96
--- NOTE | 2024-10-27 13:01 | AM.OFFWIN_ITS ---
Intake Vital Signs 10/27/24 13:01 Weight 133 lb BP 124/80 Blood Pressure Location Rt brachial Position Sitting Pulse 84 Pulse Source Pulse Oximeter Temp 98.8 F Temp Source Oral Pulse Oximetry (%) 96 Oxygen Delivery Method Room Air Intake Visit Reasons: EP-lump lt hand & b/l ears check Intake Note: Patient here for lump on left hand that has been present for a couple of months. she states she has been getting prolia injections which could be a side effect. Patient Tobacco Use Status: Never used Tobacco Allergies aspirin [ASA] Allergy (Intermediate, Verified 10/27/24 13:06) TACHYCARDIA buspirone [From BuSpar] Allergy (Unknown, Verified 10/27/24 13:06) Stomach Upset Sulfa (Sulfonamide Antibiotics) [SULFA(SULFONAMIDE ANTIBIOTICS)] Adverse Reaction (Intermediate, Verified 10/27/24 13:06) VOMITING chlorthalidone Adverse Reaction (Unknown, Verified 10/27/24 13:06) Stomach pain, loss of appetite Do you need a note to return to daycare/school/sports/work: No HPI HPI Comments History of Present Illness Details This is a right-hand dominant 84-year-old female presenting for evaluation of a lesion on her left 2nd finger that has been present for the past 2 months. Patient states that she started Prolia injections on July 01 and has not yet had her 2nd injection. Patient believes that this lesion may be associated with the Prolia. She denies any injury or trauma to her left hand and states the lesion is not painful. Additionally, patient is requesting to have her ears flushed of cerumen. She denies having any ear pain but reports chronic ear wax. [facility] Medical History (Updated 10/27/24 @ 13:26 by Claudette Schultz PA-C) Idiopathic hypercalciuria Vitamin D deficiency Ingrown toenail of right foot Hip fracture, right Multinodular goiter Osteoporosis Melanoma, choroid Surgical History History of lobectomy of thyroid Hx of cholecystectomy H/O colonoscopy Family History Father No problems noted. Mother No problems noted. Social History Housing: House Alcohol intake: never Patient Tobacco Use Status: Never used Tobacco e-Cigarette/Vaping Use: Never Used Second Hand Smoke Exposure: No Current occupational status: retired Cognitive needs: No Hearing needs: No Vision needs: Yes Review of Systems Const All systems reviewed & are unremarkable except as noted in HPI and below Reports no additional complaints Eyes Reports as per HPI ENT Details: cerumen impaction Card Reports no additional complaints Resp Reports no additional complaints GI Reports no additional complaints Reports no additional complaints Musc Details: non.painful lesion on left 2nd digit Reports no additional complaints Skin/Breast Reports lesions (left 2nd digit) Neuro Reports no additional complaints Psych Reports no additional complaints Endo Reports no additional complaints Chris/Lymph Reports no additional complaints Aller/Immun Reports no additional complaints Physical Exam Const General: cooperative, healthy appearing, comfortable, no acute distress, well developed, alert, awake and Physically active Nutritional Appearance: well nourished Orientation/consciousness: patient oriented x3 Limitations: no limitations HEENT Head: Yes normal to inspection and Yes normocephalic Ears: external ears normal and unable to visualize TM bilaterally (cerumen) Face and sinus: Yes normal facial exam Skin Other: 1cm x 0.5cm rubbery moveable lesion overlying the radial aspect of the left 2nd MCP that is non.tender and flesh colored Neuro General: patient oriented x3 Extrem Other: minimally decreased flexion left 2nd digit; sensation intact all digits of the left hand Psych Appearance: grossly normal Mental Status: mental status grossly normal Insight: Good insight present (Psych) Judgement: Good judgement present (Psych) Assessment & Plan Assessment & Plan (1) Impacted cerumen of both ears: Comment: cerumen removed bilaterally Code(s): H61.23 - Impacted cerumen, bilateral Plan: Debrox OTC prn (2) Skin lesion of hand: Comment: Patient will inquire with her chief executive or managing director about the effects of Prolia and the chance this lesion may be related; may pursue orthopedic consult through PCP Code(s): L98.9 - Disorder of the skin and subcutaneous tissue, unspecified Plan: No specific treatment is warranted at this time. Patient may consider orthopedics evaluation if the lesion evolves. Coding Level of Care Code Est Pt Level 4 (31932) Diagnoses Impacted cerumen of both ears H61.23 Skin lesion of hand L98.9 Time Spent (min) 20
== END 2024-10-27 15:21 | disposition home or self-care (01) ==
PROVIDERS: PCP Internal Medicine; Visit Provider Physician Assistant
DX: H61.23 Impacted cerumen, bilateral (principal); L98.9 Disorder of the skin and subcutaneous tissue, unspecified

== ENCOUNTER → 2024-10-28 08:28 | Outpatient (BNV) | payer MEDICARE, SELFPAY | PROVIDERS: PCP Internal Medicine; Visit Provider Radiology Diagnostic Radiology | DX: R16.0 Hepatomegaly, not elsewhere classified (principal); K44.9 Diaphragmatic hernia without obstruction or gangrene | CPT/HCPCS: 74177 ==

== ENCOUNTER 2024-12-22 13:50 | Outpatient (REF) | payer MEDICARE, SELFPAY ==
--- OUTSIDE RECORDS SUMMARY | 2024-12-22 16:29 | XMS_ITS | Patient Health Record ---
Author Organization [facility] Address [address] [place] [address] Care Team Providers Care Traffic Circuit Engineer Name Role Phone Anjelica Clarke MD Primary Care Provider Frank Mccoy Unavailable [phone] Allergies Allergen (clinical drug ingredient) Drug/Non Drug Allergy documented on EMR Reaction Allergy Type Onset Date Status Sulfur Unknown Drug Allergy Active aspirin Aspirin Unknown Drug Allergy Active any medication that ends in dine (uncoded) Unknown Allergy Active Reason For Referral No Information Medications Medication SIG (Take, Route, Frequency, Duration) Notes Start Date End Date Status Ginkgo 120 as directed Orally a s directed Active Glucosamine 1500 1 capsule with a monica l Orally twice a day Active prednisoLONE Acetate Not-Taking Cranberry 4200 1/2 tablet with meal s Orally Three times a day Active Apple Cider Vinegar Active Latanoprost Active Timolol Maleate Acti ve Pantoprazole Sodium 40 MG 1 tablet Oral Once or twice a day for the reflux Active Brimonidine Tartrate Active Vitamin B Complex - as directed Orally Active Immunizations Vaccine Route Administration Date Status Comme nts Influenza Unknown 06/23/2019 Administered Influenza Unknown 06/23/2020 Administered Influenza Unknown 08/15/2021 Administered Influenza Unknown 07/16/2023 Administered Social History Tobacco Use: Social History Observation Description Date Details (start date - stop date) Never Smoker NA - NA Tobacco Use/Smoking Question Answer Notes Patient is a nonsmoker Alcohol Screen Question Answer Notes Did you have a drink containing alcohol in the p ast year? No Points 0 Interpretation Negative Section Notes: Nonsmoker; no sig alcohol Nonsmoker; no sig alcohol Nonsmoker; no sig alcohol Nonsmoker; no sig alcohol Nonsmoker; no sig alcohol Problems Problem Type SNOMED Code ICD Code Onset Dates Problem Status W/U Status Risk Notes Problem Irritable bowel syndrome (65555413) Irritable bowel syndrome (K58.9) Active confirmed Problem 303462086 Gastroesophageal reflux disease, esophagitis presence not specified (K21.9) Active confirmed Problem Hiatal hernia (90641943) Hiatal hernia (K44.9) Active confirmed Problem 28447578 Constipation, unspecified constipation type (K59.00) Active confirmed Problem Gastroesophageal reflux disease (530996280) GERD (gastroesophageal reflux disease) (K21.9) Active confirmed Problem [id number] Abnormal gallbladder ultrasound (R93.2) Active confirmed Problem 889797576 Left lower quadrant abdominal pain (R10.32) Active confirmed Plan Of Treatment Future Test Test Name Order Date UPPER GI ENDOSCOPY 04/26/2020 Insurance Providers Payer Name Payer Address Payer Phone Subscriber Number Group Number Insured Name Patient Relationship to Insured Coverage Start Date Coverage End Date MEDICARE OF [place] [address] [place] [address] [phone] [id number] ROCIO HENSON Self - patient is the insured [facility] SU[employer]LE[employer]AL [employer]AN [address] [place] [address] [id number] ROCIO HENSON Self - patient is the insured Medical (General) History Medical History History ICD Code Denies [place],DM,CVA,Lung disease,renal dise ase She reports three previous c olonoscopies with the [facility]'s--she reports a hx of colon polyps on at least one of them--most recent colonoscopy was in 10/2017--Dr. Roberts--benign nonadenomatous polyp GERD--EGD 04/2020 with a smal l to mod-sized HH--no esophagitis/Grace's, no Hpylori, normal duodenal biopsies Melanoma behind right eye--treated with XRT Osteoporosis IBS Abdominal ultrasound in 2018 raising a suspicion of either a porcelain gallbladder or a stone-filled gallbladder COVID 02/2022 Back pain Negative MRI of the abdomen in April of 2021 Surgical History Surgery Date(Month/Year) Tubal ligation Broken right hip Breast biopsy-benign Colon surgery for diverticulitis--partia l colon resection Cataract surgery OD Hysterectomy [facility] for gallstones 05/2020-Dr Mansoor Phelan--pathology was negative for any sign of malignancy Partial thyroidectomy at [facility] in [facility] 2021 for benign lesion
--- OUTSIDE RECORDS SUMMARY | 2024-12-22 16:30 | XMS_ITS ---
Author Organization [facility] Address [address] [place] [address] Care Team Providers Care Program Therapist Name Role Phone Anjelica Clarke MD Primary Care Provider Frank Mccoy [phone] Encounters Encounter Location Date Provider Diagnosis [facility] [address] [place] [phone] 08/06/2023 Frank Avila Plan Of Treatment No Information Progress Notes * ROCIO HENSONDOB:1940 (82 yo F)Acc No.[id number]:08/06/2023 Patient:?ROCIO HENSON :1940???Age:82 Y???Sex:Female Address[address] [place], [address] * true * Date:? Generated for Lisai nitin/Morro/eTransmitting on:?12/22/2024 04:29 PM EDT
--- OUTSIDE RECORDS SUMMARY | 2024-12-22 16:30 | XMS_ITS | Data Portability ---
Author Organization [facility], [facility] Address [address] [place] [address] Care Team Providers Care Button Breaker Operator Name Role Phone TY SAMS Primary Care Provider [phone] Assessment Encounter Date Assessment Date Assessment LastModified [...] recorded. Lab calcium, 24-hour urine 2018 019 [facility], [address] [place] [address], [address], 9 21:12:19 creatinine , 24-hour urine 2018 019 [facility], [address] [place] [address], [address], 9 21:12:21 PTH (parathyro id hormone), intact, serum or plasma 2018 019 [facility], [address] [place] [address], [address], 9 14:18:39 magnesium, serum or plasma 2018 019 [facility], [address] [place] [address], [address], 9 14:55:30 TSH, serum or plasma 2018 019 [facility], [address] [place] [address], [address], 9 14:18:39 vitamin D, 25-hydroxy , total, serum 2018 019 [facility], [address] [place] [address], [address], 9 14:18:40 renal function panel, serum 2018 019 [facility], [address] [place] [address], [address], 9 14:55:29 Referral None recorded. Procedures None recorded. Surgeries None recorded. Imaging US, liver 2017 018 [facility] (Imaging), [address], [place], [place], [address], 8 11:16:52 Medication Orders risedronat e 35 mg tablet 2018 019 INTERFACE [id number], [address], [place], [id number], 9 11:10:03 Patient TargetsNo targets recorded. Patient Instructions Encounter Date Encounter Id Patient Instructions Last Modified By Organization Details Last Modified Time 08/13/2018 [id number] advance directives: care instructions sesrick Not available [...] en 0.4-4 .0 mIU/m L. Not Available [address], [address], 01/21/2019 14:18:39 01/22/20 19 01/21/2019 PTH (para thyro id hormo ne), intac t, serum or plasm a PTH intact 22.8 pg/mL 9.6-66 .3 Not Available [address], [address], 01/21/2019 14:18:39 01/22/2001/21/2019 vitam in D, 25-hy [...] er than 30 ng/mL . Not Available [address], [address], 01/21/2019 14:18:40 01/22/2001/21/2019 renal funct ion panel , serum glucose 105 mg/dL 70-100 high Not Available [address], [address], 01/21/2019 14:55:29 01/22/2001/21/2019 renal funct ion panel , serum BUN 20 mg/dL 7-18 high Not Available [address], [address], 01/21/2019 14:55:29 01/22/2001/21/2019 renal funct ion panel , serum creatinine 0.8 mg/dL 0.8-1. 3 Not Available [address], [address], 01/21/2019 14:55:29 01/22/2001/21/2019 renal funct ion panel , serum B/C 25.0 ratio Not Available [address], [address], 01/21/2019 14:55:29 01/22/2001/21/2019 renal funct ion panel , serum GFR -non 77.9 mL/mi n Recom doc d GFR by the Natio nal Kidne y Found ation >60 mL/mi n/1.7 3m2 - Vane l <60 mL/mi n/1.7 3m2 - Chron ic Kidne y Disea se <15 mL/mi n/1.7 3m2 - Kidne y Failu re Not Available [address], [address], 01/21/2019 14:55:29 01/22/2001/21/2019 renal funct ion panel , serum GFR - if 89.6 mL/mi n For Afric an Ameri can patie nts: Resul ts Multi plied by 1.21 Not Available [address], [address], 01/21/2019 14:55:29 01/22/2001/21/2019 renal funct ion panel , serum sodium 145 mmol/ L 136-14 5 Not Available [address], [address], 01/21/2019 14:55:29 01/22/2001/21/2019 renal funct ion panel , serum potassium 4.1 mmol/ L 3.5-5. 1 Not Available [address], [address], 01/21/2019 14:55:29 01/22/2001/21/2019 renal funct ion panel , serum chloride 106 mmol/ L 96-107 Not Available [address], [address], 01/21/2019 14:55:29 01/22/2001/21/2019 renal funct ion panel , serum anion gap 10.2 5.0-15 .0 Not Available [address], [address], 01/21/2019 14:55:29 01/22/2001/21/2019 renal funct ion panel , serum CO2 29 mmol/ L 21-32 Not Available [address], [address], 01/21/2019 14:55:29 01/22/2001/21/2019 renal funct ion panel , serum calcium 9.4 mg/dL 8.5-10 .3 Not Available [address], [address], 01/21/2019 14:55:29 01/22/2001/21/2019 renal funct ion panel , serum albumin 3.7 g/dL 3.4-5. 0 Not Available [address], [address], 01/21/2019 14:55:29 01/22/20 19 01/21/2019 renal funct ion panel , serum phosphorous 3.50 mg/dL 2.50-4 .90 Not Available [address], [address], 01/21/2019 14:55:29 01/22/20 19 01/21/2019 magne sium, serum or plasm a magnesium 2.0 mg/dL 1.8-2. 4 Not Available [address], [address], 01/21/2019 14:55:30 02/21/20 19 02/23/2019 calci um, 24-ho ur urine calcium, 24 hour urine 411 mg/24 _h high Refer ence Range 35-25 0 Low calci um diet 35-20 0 TOTAL URINE VOLUM E: 1700/ 24 Not Available [facility] [address], [address], 02/23/2019 21:12:19 02/21/20 19 02/23/2019 creat inine , 24-ho ur urine creatinine, 24 hour urine 0.97 g/24_ h 0.50-2 .15 normal TOTAL URINE VOLUM E: 1700/ 24 Not Available [facility] [address], [address], 02/23/2019 21:12:21 08/08/20 18 07/31/2018 bone densi [...] ation is compar ed to the techni yunior mejia r prior study from 05/24/20 16. [...] This scan was perfor med using the Ingenious Medar Prodig y Primo 10 densit ometer at [facility] , [address] [place]. Read by: Cristiano acuna PA-C, CCD Electr onical ly signed Estrada rajan Physic cornelia: Jeannette Andersen [facility] (Imaging) [address], [place], [address], 08/09/2018 19:45:09 08/25/20 18 08/25/2018 US, liver [...] Readkoffi rajan Physic cornelia: Lex Odell MD [facility] (Imaging) [address] , [place], [address], 01/26/2019 09:26:11 01/29/20 19 01/28/2019 MAMMO , [...] fibrog landul ar densit ies. POS - [id number] Electr onical ly Signed by: MERON CORADO on 01/29/20 6:46 PM Interp reted by: Meron Corado MD Signed by: Meron Corado MD 01/28/19 CC Recipi ents: Anjelica Clarke MD - Fax Final result TY SAMS jennifer [facility] [address] [place] [address], [address], 01/28/2019 20:22:13 01/29/20 19 01/28/2019 MAMMO , scree tez No observ ation record ed. [email or web address] [address], [address], 02/02/2019 09:08:34 Result Notes None recorded. 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 needs lft's q yr and ultrasoun d of abdomen qyr Calos Valiente MD [address] [place] [address] [place], [address], [facility] 7 14:58:02 Computed tomograp hy result abnormal 211138088 Completed 10/12/2015 Calos Valiente MD [address] [place] [address] [place], [address], [facility] 6 13:28:27 Solitary nodule of lung 222148003 Active [address] low dose repeat CT Sep 2017 Calos Valiente MD [address] [place] [address] [place] [address], [facility] 7 08:18:25 Mixed hyperlip idemia 460816767 Active 2008 Calos Valiente MD [address] [place] [address] [place] [address], [facility] 6 13:28:26 Nervous system symptoms Completed 200409/05/2011 Calos Valiente MD [address] [place] [address] [place], [address], [facility] 6 13:28:26 Colitis, enteriti s and gastroen teritis presumed infectio us 719945017 Completed 04/06/2013 Calos Valiente MD [address] [place], [place] [address], [address], [facility] 6 13:28:26 Abnormal findings on diagnost ic imaging of breast 453643445 Completed 200007/18/2009 Calos Valiente MD [address] [place] [address] [place], [address], [facility] 6 13:28:26 Gastroes ophageal reflux disease 810647449 Active 2006 Calos Valiente MD [address] [place] [address] [place], [address], [facility] 6 13:28:26 Non-toxi c uninodul ar goiter 217788481 Completed 200310/28/2014 Calos Valiente MD [address] [place], [place] [address], [address], [facility] 6 13:28:26 Nausea and vomiting 33154845 Completed 200604/06/2013 Calos Valiente MD [address] [place] [address] [place], [address], [facility] 6 13:28:26 Lateral epicondy litis 608960589 Completed 200407/18/2009 Calos Valiente MD [address] [place] [address] [place], [address], [facility] 6 13:28:26 Divertic ulitis of colon 695031313 Active 2006 Calos Valiente MD [address] [place] [address] [place], [address], [facility] 6 13:28:26 Neck pain 66566094 Completed 200307/18/2009 Calos Valiente MD [address] [place] [address] [place], [address], [facility] 6 13:28:26 Atypical facial pain 49809296 Completed 200102/20/2011 Calos Valiente MD [facility] [place], [address], [facility] 6 13:28:26 Left lower quadrant pain 981194985 Completed 200704/06/2013 Calos Valiente MD [address] [place] [address] [place], [address], [facility] 6 13:28:26 Epidermo id cyst of skin 695967805 Completed 09/05/2011 Calos Valiente MD [address] [place] [address] [place], [address], [facility] 6 13:28:26 Epidermo id cyst of skin 301776167 Completed 200102/20/2011 Calos Valiente MD [address] [place] [address] [place], [address], [facility] 6 13:28:26 Sprain of shoulder and upper arm Completed 200604/06/2013 Calos Valiente MD [address] [place] [address] [place], [address], [facility] 6 13:28:26 Acute maxillar y sinusiti s 70188156 Completed 200202/20/2011 Calos Valiente MD [address] [place], [place] [address], [address], [facility] 6 13:28:26 Non-toxi c multinod ular goiter 40262324 Active 2007 Calos Valiente MD [address] [place] [address] [place], [address], [facility] 6 13:28:26 Divertic ular disease of colon 954356744 Completed 200810/28/2014 Calos Valiente MD [address] [place], [place] [address], [address], [facility] 6 13:28:26 Hashimot o thyroidi tis 42417538 Active 2004 get tsh 07/2017 Calos Valiente MD [address] [place] [address] [place], [address], [facility] 6 16:46:00 Acute bronchit is 38732604 Completed 200002/20/2011 Calos Valiente MD [facility] [place], [address], [facility] 6 13:28:26 Left upper quadrant pain 877059338 Completed 200002/20/2011 Calos Valiente MD [address] [place] [address] [place], [address], [facility] 6 13:28:26 Decrease in height 51050761 Completed 200608/12/2013 Calos Valiente MD [address] [place] [address] [place], [address], [facility] 6 13:28:26 Headache 56904663 Completed 200007/18/2009 Calos Valiente MD [address] [place] [address] [place], [address], [facility] 6 13:28:26 Sprain of ligament of lumbosac ral joint Completed 200210/28/2014 Calos Valiente MD [address] [place] [address] [place], [address], [facility] 6 13:28:26 Carpal tunnel syndrome 55333456 Completed 200007/18/2009 Calos Valiente MD [address] [place] [address] [place], [address], [facility] 6 13:28:26 Hyperthy roidism 70277150 Completed 200610/21/2017 Calos Valiente MD [address] [place] [address] [place], [address], [facility] 8 12:19:41 Contact dermatit is 23532348 Completed 200809/05/2011 Calos Valiente MD [address] [place] [address] [place], [address], [facility] 6 13:28:26 Senile hyperker atosis 345616365 Completed 200809/05/2011 Calos Valiente MD [address] [place] [address] [place], [address], [facility] 6 13:28:26 Shoulder pain 35695561 Completed 200604/06/2013 Calos Valiente MD [address] [place] [address] [place], [address], [facility] 6 13:28:26 Gastro-e sophagea l reflux disease with esophagi tis 244619960 Completed 199910/28/2014 Calos Valiente MD [address] [place] [address] [place], [address], [facility] 6 13:28:26 Clostrid ioides difficil e infectio n 843096680 Completed 200610/28/2014 Calos Valiente MD [address] [place] [address] [place], [address], [facility] 6 13:28:26 Astigmat ism 14697657 Completed 200507/18/2009 Calos Valiente MD [address] [place] [address] [place], [address], [facility] 6 13:28:26 Impacted cerumen 42556502 Completed 200102/20/2011 Calos Valiente MD [address] [place] [address] [place], [address], [facility] 6 13:28:26 Sprain of spinal ligament 695108013 Completed 200007/18/2009 Calos Valiente MD [address] [place] [address] [place], [address], [facility] 6 13:28:26 Conducti ve hearing loss 14771382 Active 2003 Calos Valiente MD [address] [place] [address] [place], [address], [facility] 6 13:28:26 Sprain of ankle 59204997 Completed 200809/05/2011 Calos Valiente MD [facility] [place], [address], [facility] 6 13:28:26 Irritabl e bowel syndrome 27825302 Active 2006 [place], [address], [facility] 6 13:28:26 Breathin g painful 06104555 Completed 200207/18/2009 [place], [address], [facility] 6 13:28:26 Adverse reaction to substanc e 513746198 Completed 199907/18/2009 Calos Valiente MD [facility] [place], [address], [facility] 6 13:28:26 Injury of lower limb 096880123 Completed 200007/18/2009 [place], [address], [facility] 6 13:28:26 Breast lump 42018623 Completed 200507/18/2009 [place], [address], [facility] 6 13:28:26 Gastroin testinal hemorrha ge 44188010 Completed 200504/06/2013 Calos Valiente MD [address] [place], [place] [address], [address], [facility] 6 13:28:26 Nonvenom ous insect bite of multiple sites 765352310 Completed 200604/06/2013 [place], [address], [facility] 6 13:28:26 Mammogra phy abnormal 789632442 Completed 200409/05/2011 [place], [address], [facility] 6 13:28:26 Common cold 19135977 Completed 200604/06/2013 Calos Valiente MD [address] [place], [place] [address], [address], [facility] 6 13:28:26 Postarti ficial menopaus al syndrome 27595407 Completed 200608/12/2013 Calos Valiente MD [address] [place], [place] [address], [address], [facility] 6 13:28:26 On examinat ion - a rash Completed 200804/06/2013 Calos Valiente MD [address] [place], [place] [address], [address], [facility] 6 13:28:26 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 Calos Valiente MD [facility] [place], [address], [facility] 6 13:28:26 Senile osteopor osis 61597623 Completed 200404/06/2013 Calos Valiente MD [facility] [place], [address], [facility] 6 13:28:26 Chest pain 87335295 Completed 200804/06/2013 Calos Valiente MD [address] [place], [place] [address], [address], [facility] 6 13:28:26 Osteopor osis 68262267 Active 2004 [place], [address], [facility] 6 13:28:26 Menopaus al symptom 14077466 Completed 200208/12/2013 [place], [address], [facility] 6 13:28:26 Osteoart hritis 418377221 Active 2000 Calos Valiente MD [address] [place], [place] [address], [address], [facility] 6 13:28:27 Solitary cyst of breast 658350440 Completed 200002/20/2011 Calos Valiente MD [address] [place] [address] [place], [address], [facility] 6 13:28:26 External hemorrho ids 18632883 Completed 200709/05/2011 Calos Valiente MD [address] [place], [place] [address], [address], [facility] 6 13:28:26 Problem Notes None recorded. Procedures Surgical History Date Name Laterality Status Provider Name and Address Organization Details Recorded Time 08/13/20 18 Medicare Wellness Visit completed Anna Jaeger LPN [facility] 08/13/2018 15:32:17 11/14/19 18 Tassoni - Colonoscopy completed Tru Roberts MD [address] [place] [address], [address], [facility] 11/14/2017 10:50:24 07/02/20 17 Cerumen Removal - Irrigation/Lavage completed Glory Shi LPN [facility] 07/02/2017 12:00:33 04/22/20 17 Medicare Wellness Visit completed Binta Lam MA [facility] 04/22/2017 11:39:26 05/02/20 16 Cerumen Removal - Irrigation/Lavage completed Cecelia Newell LPN [facility] 05/02/2016 14:24:43 04/19/20 16 Medicare Wellness Visit completed Tammy Grace MA [facility] 04/19/2016 10:18:59 04/18/20 15 Medicare Wellness Visit completed Binta Lam MA [facility] 04/18/2015 11:56:21 03/23/20 15 Cerumen Removal completed Lety Castellon LPN [facility] 03/23/2015 10:27:25 04/15/20 14 Medicare Wellness Visit completed Binta Lam MA [facility] 04/15/2014 15:11:55 08/12/20 13 Cerumen Removal completed Lety Castellon LPN [facility] 08/12/2013 12:22:56 04/06/20 13 Medicare Wellness Visit completed Binta Lam MA [facility] 04/06/2013 11:39:32 10/06/19 13 Cerumen Removal completed Sebastián Syed RN [facility] 10/06/2012 16:43:15 09/02/20 12 Suture/staple Removal completed Irene Kirk LPN [facility] 09/02/2012 11:19:40 08/26/20 12 Excision completed Calos Valiente MD [address] [place] [address], [address], [facility] 08/26/2012 14:18:50 03/27/20 12 Medicare Wellness Visit completed Binta Lam MA [facility] 03/27/2012 11:35:52 02/20/20 12 Cerumen Removal completed Abbie Lal RN [facility] 02/20/2012 15:58:57 08/09/20 11 Cerumen Removal completed Irene Kirk LPN [facility] 08/09/2011 12:13:13 03/07/20 11 Suture/staple Removal completed Abbie Lal RN [facility] 03/07/2011 11:51:06 02/27/20 11 Excision completed Calos Valiente MD [address] [place] [address], [address], [facility] 02/26/2011 10:58:49 02/21/20 11 Medicare Annual Wellness Visit completed Binta Lam MA [facility] 02/20/2011 09:28:23 02/21/20 11 Medicare Risk for Falls Screen completed Calos Valiente MD [address] [place] [address], [address], [facility] 02/20/2011 09:40:31 02/21/20 11 Advanced Care Planning completed Calos Valiente MD [address] [place] [address], [address], [facility] 02/20/2011 09:53:51 01/19/20 11 Cerumen Removal completed Mary Angel NP [address] [place], [address], [facility] 01/18/2011 17:44:54 06/09/20 10 Cerumen Removal completed Lety Castellon [facility] 06/09/2010 15:25:27 03/28/20 10 Corticosteroid Injection completed Calos Valiente MD [address] [place], [address], [facility] 03/28/2010 11:03:57 12/29/19 10 Cerumen Removal completed Zeinab Greene [facility] 12/28/2009 09:50:55 06/01/20 09 Cerumen Removal completed Irene Kirk [facility] 06/01/2009 12:02:59 06/12/20 06 completed Not Available [facility] 08/09/2011 06:05:52 Imaging Results Imaging Date Name Status LastModified by Organiz ation Details LastModified Time 07/31/2018 bone density completed [facility] (Imaging) [address], [place], [address], 08/09/2018 19:45:09 08/25/2018 US, liver completed [facility] (Imaging) [address], [place], [address], 01/26/2019 09:26:11 01/28/2019 MAMMO, screening, tomosynthesis, bilateral, w/ CAD completed [facility] [address] [place] [address], [address], 01/28/2019 20:22:13 01/28/2019 MAMMO, screening completed [email or web address] [place] [address], [address], 02/02/2019 09:08:34 Procedure Notes None recorded. Medical Equipment None Reported. Allergies Allergen ID Allergen Name Allergen Category Reaction Reaction Severity Criticality Documentation Date Start Date Code Code System Note Provider Name and Address Organization Details Recorded Time 51097 Substance with sulfonami de structure and antibacte rial mechanism of action (substanc e) medicatio n Not available Not available Not available 09/09/2010 82593 8003 SNOMED Not Available [facility] 1 06:05:41 Medications Name Sig Start Date [...] Not Available Not Available Not Available Fluvirin 0222-8045 45 mcg (15 mcg x 3)/0.5 mL [...] Updated DateTime 8 154.94 cm 26.5 kg/m2 08030.9 3 g 84 /min 130 mm[Hg] 70 mm[Hg] Glory Colindres [facility] 8 13:50:20 Date Recorded Body height Body mass index (BMI) Body weight Heart rate Systolic blood pressure Diastolic blood pressure Provider Name and Address Organization Details Last Updated DateTime 8 155.58 cm 25.9 kg/m2 32581.7 5 g 82 /min 140 mm[Hg] 78 mm[Hg] [facility] 11:07:18 Date Recorded Body height Body mass index (BMI) Body weight Heart rate Respiratory rate Systolic blood pressure Diastolic blood pressure Provider Name and Address Organization Details Last Updated DateTime 8 155.58 cm 25.9 kg/m2 62255.1 5 g 96 /min 20 /min 130 mm[Hg] 60 mm[Hg] Anna Jaeger [facility] 8 15:38:38 Date Recorded Body height Body mass index (BMI) Body weight Heart rate Systolic blood pressure Diastolic blood pressure Provider Name and Address Organization Details Last Updated DateTime 9 155.58 cm 24.9 kg/m2 64719.7 9 g 80 /min 122 mm[Hg] 60 mm[Hg] Doreen santiago, [facility] 9 10:31:03 Date Recorded Body height Body mass index (BMI) Body weight Heart rate Systolic blood pressure Diastolic blood pressure Provider Name and Address Organization Details Last Updated DateTime 9 155.58 cm 24.2 kg/m2 88060.8 5 g 86 /min 138 mm[Hg] 66 mm[Hg] Patricia Mills, [facility] 9 10:46:19 Social History Question Answer Notes LastModified by Organizat ion Details LastModified Time Tobacco Smoking Status Never Smoker Not Available [facility] 08/09/2011 04:53:18 Do You Have An [...] None Information not available 03/27/2012 Education 12 Inform ation not available 08/09/2011 What Is Your Occupation? Retired [email or web address] Information not available 04/30/2018 How Many Days In The Past Year Have You Had A Heavy Drinking Consumption (4+ Female, 5+ Male)? 0 0 [email or web address] Information not available 05/02/2016 Are There Any Guns Present In Your Home? No Information n ot available 08/09/2011 Live Alone Or With Others? With Others Brother Information not available 03/27/2012 CSRP - Narcotics No Information not available 04/08/2015 CSRP Contract Signed And Discussed No Information not available 04/08/2015 Patient Has Health Care Proxy Signed And In Chart No Daughter Naveed Echeverria [email or web address] Information not available 06/04/2018 CSRP - Stimulants No Information not available 04/08/2015 CCM Consent Discussion 04/19/2016 Information not available 04/19/2016 Marital Status Since Informatio n not available 04/18/2015 Mosquito Repellent Used Routinely Yes Information not available 04/08/2015 What Was The Date Of Your Most Recent Tobacco Screening? 01/21/2019 [id number] Information n ot available 04/15/2019 How Many Children Do You Have? 3 Information n ot available 08/09/2011 Are There Any Occupational Health Risks Where You Work? Retired Information not available 05/27/2012 Seat Belts Used Routinely Yes Information n ot available 08/09/2011 Are You Sexually Active? No Information n ot available 08/09/2011 Smoke Alarm In Home Yes Information n ot available 08/09/2011 How Much [...] available 2017 15:16:24 Notes:brother-; father and b rother had tb, mother breast cancer. Medical History [...] virus, trivalent, preservative 9 completed Not Available [facility] 10/10/2019 02:38:54 Influenza, split virus, trivalent, preservative 1 completed Not Available [facility] 10/10/2019 02:31:48 influenza, unspecified formulation 2 completed Not Available [facility] 08/08/2011 05:21:07 influenza, unspecified formulation 5 completed Not Available [facility] 08/08/2011 05:21:29 pneumococcal polysaccharide PPV23 7 completed Not Available [facility] 08/08/2011 05:21:29 influenza, unspecified formulation 7 completed Not Available [facility] 08/08/2011 05:21:55 Td(adult) unspecified formulation 8 completed Not Available [facility] 08/08/2011 05:21:55 influenza, unspecified formulation 8 completed Not Available [facility] 08/08/2011 05:21:55 Influenza, split virus, trivalent, preservative 2 completed Not Available [facility] 10/10/2019 02:33:39 Influenza, split virus, trivalent, PF 3 completed Not Available [facility] 10/10/2019 02:18:57 zoster live 8 completed Not Available [facility] 08/08/2011 05:22:52 Pneumococcal conjugate PCV 13 5 completed Not Available [facility] 10/10/2019 02:28:18 Novel [id number] 0 completed Not Available [facility] 10/10/2019 02:25:07 Influenza, high-dose, trivalent, PF 6 completed Not Available [facility] 10/10/2019 02:21:03 Influenza, split virus, trivalent, PF 4 completed Not Available [facility] 2019 02:10:39 Influenza, high-dose, trivalent, PF 7 completed Not Available [facility] 10/10/2019 02:21:41 Influenza, high-dose, trivalent, PF 5 completed Emmanuelle Perez, RN, BSN [facility] 07/17/2015 12:34:45 Influenza, high-dose, trivalent, PF 8 completed Not Available [facility] 10/10/2019 02:23:03 Influenza, split virus, trivalent, preservative 0 completed Not Available [facility] 10/10/2019 02:27:08 Past Encounters Encounter ID Performer Location Encounter Start Date Encounter Closed Date Diagnosis/Indication Diagnosis SNOMED-CT Code Diagnosis ICD10 Code Diagnosis Note [id number] FP, [facility], [address]ICE [address] [place] [address] 08/21/2000 11:45:00 10/13/2008 02:02:29 [id number] FP, [facility], OFFICE [address] [facility] [place] [address] 09/02/2000 14:15:00 10/13/2008 02:02:29 [id number] [facility] [address] [place] [address] 01/11/2001 10:00:00 10/13/2008 02:02:29 [id number] FP, [facility], OFFICE [address] [place] [address] 02/19/2001 16:15:00 10/13/2008 02:02:29 [id number] FP, [facility], OFFICE [address] [facility] [place] [address] 02/26/2001 10:30:00 10/13/2008 02:02:29 [id number] FP, [facility], OFFICE [address] [place] [address] 01/02/2001 10:30:00 10/13/2008 02:02:29 [id number] FP, [facility], OFFICE [address] [place] [address] 03/28/2001 11:00:00 10/13/2008 02:02:29 [id number] Radiology , [facility] [address] [place] [address] 03/20/2001 14:00:00 10/13/2008 02:02:29 [id number] FP, [facility], OFFICE [address] [place] [address] 6 07/23/2001 11:45:00 10/13/2008 02:02:29 [id number] FP, [facility], OFFICE [address] [place] [address] 09/26/2001 14:45:00 10/13/2008 02:02:29 [id number] FP, [facility], OFFICE [address] [place] [address] 11/21/2001 15:30:00 10/13/2008 02:02:29 [id number] FP, [facility], OFFICE [address] [place] [address] 6 12/29/2001 09:45:00 10/13/2008 02:02:29 [id number] FP, [facility], OFFICE [address] [place] [address] 6 03/23/2002 10:28:26 10/13/2008 02:02:29 [id number] FP [facility], OFFICE [address] [place] [address] 6 04/06/2002 10:46:02 10/13/2008 02:02:29 [id number] FP, [facility], OFFICE [address] [place], [place] [address] 04/15/2002 09:55:33 10/13/2008 02:02:29 [id number] Radiology , [facility] [address] [facility] [address] 04/20/2002 12:03:48 10/13/2008 02:02:29 [id number] LAB - [address] [place] [address] 04/24/2002 11:52:43 10/13/2008 02:02:29 [id number] FP, [facility], OFFICE [address] [place] [address] 05/08/2002 10:10:02 10/13/2008 02:02:29 [id number] FP, [facility], OFFICE [address] [place] [address] 6 06/02/2002 10:02:44 10/13/2008 02:02:29 [id number] FP, [facility], OFFICE [address] [place] [address] 09/03/2002 15:26:30 10/13/2008 02:02:29 [id number] FP, [facility], OFFICE [address] [place] [address] 10/20/2002 15:09:26 10/13/2008 02:02:29 [id number] FP, [facility], OFFICE [address] [place] [address] 11/18/2002 15:24:24 10/13/2008 02:02:29 [id number] FP, [facility], OFFICE [address] [place] [address] 02/17/2003 11:13:26 10/13/2008 02:02:29 [id number] LAB - [facility] [address] [place] [address] 04/01/2003 09:02:04 10/13/2008 02:02:29 [id number] FP, [facility], OFFICE [address] [place] [address] 03/31/2003 10:18:52 10/13/2008 02:02:29 [id number] Radiology , [facility] [address] [place] [address] 04/06/2003 13:30:30 10/13/2008 02:02:29 [id number] LAB - [address] [place] [address] 04/21/2003 11:18:36 10/13/2008 02:02:29 [id number] Radiology , [facility] 70 [place] [address] 04/28/2003 09:22:40 10/13/2008 02:02:29 [id number] [facility], OFFICE [address] [place] [address] 09/07/2003 09:47:15 09/07/2003 12:29:27 [id number] FP [facility], OFFICE [address] [place] [address] 01/24/2004 14:57:53 01/24/2004 17:30:12 [id number] FP [facility], OFFICE [address] [place] [address] 04/05/2004 10:26:08 04/05/2004 12:21:18 [id number] Radiology , [facility] [address] [place] [address] 04/12/2004 11:02:10 04/13/2004 09:25:21 [id number] FP [facility], OFFICE [address] [place] [address] 04/17/2004 15:30:13 04/17/2004 16:37:04 [id number] LAB - [address] [place] [address] 04/24/2004 15:03:32 04/24/2004 15:06:17 [id number] FP [facility], OFFICE [address] [place] [address] 05/16/2004 14:21:17 05/16/2004 15:36:35 [id number] Physical Therapy, [facility] [address] [place] [address] 05/22/2004 14:17:10 05/22/2004 15:34:02 [id number] FP [facility], OFFICE [address] [place] [address] 06/12/2004 14:03:54 06/13/2004 08:44:24 [id number] FP, [facility], OFFICE [address] [place] [address] 6 11/28/2004 10:48:03 11/28/2004 14:51:49 [id number] Radiology , [facility] [address] [place] [address] 04/02/2005 11:29:30 04/03/2005 08:57:38 [id number] [facility], OFFICE [address] [place] [address] 04/09/2005 10:33:55 04/09/2005 13:48:49 [id number] Radiology , [facility] [address] [place] [address] 6 04/17/2005 10:42:51 10/13/2008 02:02:29 [id number] Radiology , [facility] [address] [place] [address] 6 05/08/2005 16:07:24 10/13/2008 02:02:29 [id number] [facility], OFFICE [address] [place] [address] 05/10/2005 15:23:51 10/13/2008 02:02:29 [id number] LAB - [address] [address] 07/04/2005 09:43:47 07/04/2005 09:44:04 [id number] [facility], OFFICE [address] [place] [address] 08/01/2005 16:31:52 10/13/2008 02:02:29 [id number] Eye Care, [address] [address] 03/18/2006 14:20:49 10/13/2008 02:02:29 [id number] , [facility], OFFICE [address] [place] [address] 6 03/28/2006 14:21:50 03/28/2006 16:26:32 [id number] , [facility], OFFICE [address] [place] [address] 6 04/11/2006 08:54:06 04/11/2006 11:24:55 [id number] , [facility], OFFICE [address] [place] [address] 6 04/15/2006 14:57:06 04/15/2006 16:14:28 [id number] [facility], [address] [address] 06/12/2006 08:17:24 06/13/2006 07:25:18 [id number] [facility], OFFICE 70 [facility] [place] 6 06/27/2006 15:08:52 06/27/2006 16:35:06 [id number] [facility], OFFICE [address] [place] [address] 11/20/2006 11:08:58 11/21/2006 07:58:56 [id number] [facility], OFFICE [address] [facility] [place] [address] 12/24/2006 11:00:59 12/25/2006 11:23:21 [id number] Physical Therapy, [facility] Paul [facility] [place] [address] 12/27/2006 15:53:15 12/30/2006 17:04:09 [id number] Physical Therapy, [facility] 70 [facility] [place] [address] 01/13/2007 10:55:41 01/13/2007 16:17:17 [id number] Physical Therapy, [address] [place] [address] 01/27/2007 14:28:30 01/28/2007 09:18:42 [id number] LAB - [address] [place] [address] 01/27/2007 10:43:06 01/27/2007 10:43:26 [id number] Physical Therapy, [facility] [place] [facility] [place] [address] 02/10/2007 10:22:04 02/10/2007 15:19:14 [id number] Physical Therapy, [facility] [place] [address] 02/19/2007 11:53:15 02/19/2007 14:13:02 [id number] [facility], OFFICE 70 [facility] [place] [address] 02/20/2007 11:06:26 02/20/2007 15:54:33 [id number] Radiology , [facility] 70 [place] [address] 02/20/2007 11:31:53 02/21/2007 09:16:35 [id number] [facility], OFFICE [address] [facility] [place] [address] 03/01/2007 10:28:47 03/01/2007 13:23:12 [id number] FP, [facility], OFFICE [address] [place] [address] 04/02/2007 15:01:36 04/03/2007 08:21:50 [id number] FP, [facility], OFFICE [address] [place] [address] 04/14/2007 15:11:02 04/14/2007 16:37:50 [id number] FP, [facility], OFFICE [address] [place] [address] 06/09/2007 15:04:07 06/13/2007 12:49:41 [id number] Radiology , [facility] [address] [place] [address] 06/26/2007 10:13:18 06/27/2007 09:20:06 [id number] FP, [facility], OFFICE [address] [place] [address] 07/30/2007 15:24:07 10/13/2008 02:02:29 [id number] FP, [facility], OFFICE [address] [facility] [place] [address] 09/20/2007 09:17:48 10/13/2008 02:02:29 [id number] FP, [facility], OFFICE [address] [place] [address] 12/09/2007 15:04:32 10/13/2008 02:02:29 [id number] FP, [facility], OFFICE [address] [facility] [place] [address] 01/30/2008 11:39:32 10/13/2008 02:02:29 [id number] FP, [facility], OFFICE [address] [facility] [place] [address] 6 04/13/2008 15:18:25 10/13/2008 02:02:29 [id number] FP, [facility], OFFICE [address] [facility] [place] [address] 6 07/14/2008 16:21:35 07/14/2008 16:21:40 [id number] FP, [facility], OFFICE [address] [facility] [place] [address] 08/02/2008 15:47:27 10/13/2008 02:02:29 [id number] FP, [facility], OFFICE [address] [facility] [place] [address] 10/06/2008 14:26:37 10/13/2008 02:02:29 [id number] FP, [facility], OFFICE 70 [facility] [place] [address] 11/18/2008 14:26:17 11/24/2008 11:20:41 [id number] Radiology , [facility] 70 [place] [address] 11/18/2008 14:43:54 11/18/2008 17:10:40 [id number] , [facility], OFFICE [address] [facility] [place] [address] 12/15/2008 12:05:15 12/17/2008 12:42:38 [id number] , [facility], OFFICE [address] [facility] [place] [address] 12/23/2008 15:34:50 12/27/2008 14:06:35 [id number] , [facility], OFFICE [address] [place] [address] 02/09/2009 14:28:33 02/11/2009 15:21:27 [id number] [facility], OFFICE [address] [place] [address] 04/11/2009 15:07:16 04/13/2009 11:16:04 [id number] , [facility], OFFICE [address] [place] [address] 6 05/04/2009 15:54:44 05/05/2009 14:57:03 [id number] [facility], OFFICE [address] [place] [address] 06/01/2009 11:10:23 06/06/2009 11:28:11 [id number] LAB - [facility] [address] [place] [address] 04/11/2009 15:59:01 04/11/2009 15:59:16 [id number] [facility] , [facility] [address] [place] [address] 07/25/2009 11:08:41 07/27/2009 11:30:05 [id number] [facility], OFFICE [address] [place] [address] 09/01/2009 11:05:17 09/05/2009 09:52:21 [id number] [facility], OFFICE [address] [place] [address] 10/06/2009 11:03:54 10/07/2009 12:30:46 [id number] [facility], OFFICE [address] [place] [address] 11/04/2009 15:37:36 11/07/2009 14:10:42 [id number] [facility], OFFICE [address] [place] 6 12/13/2009 15:26:07 12/15/2009 10:01:44 [id number] FRANKO [facility], OFFICE [address] [place] 6 12/28/2009 09:09:33 12/30/2009 09:59:30 [id number] [facility], OFFICE 70 [place] 6 01/10/2010 10:54:36 01/10/2010 15:02:05 [id number] [facility], OFFICE 70 [place] 6 03/28/2010 10:12:46 03/31/2010 08:59:43 [id number] Radiology , [facility] [address] [place] [address] 03/28/2010 11:03:26 03/29/2010 12:23:35 [id number] [facility], OFFICE 70 [place] 6 04/17/2010 09:46:06 04/18/2010 09:19:57 [id number] [facility], OFFICE 70 [place] 6 06/09/2010 14:40:41 06/12/2010 09:51:34 [id number] FRANKO [facility], OFFICE [address] [place] [address] 09/09/2010 12:21:55 09/13/2010 12:07:02 [id number] [facility], OFFICE [address] [place] [address] 6 01/18/2011 16:27:53 01/22/2011 08:37:10 [id number] [facility], OFFICE 70 [place] 6 02/07/2011 15:45:56 02/09/2011 10:42:53 [id number] FRANKO [facility], OFFICE [address] [place] 6 02/20/2011 09:12:18 02/22/2011 09:23:32 [id number] FRANKO [facility], OFFICE 70 [place] 6 02/26/2011 10:29:49 02/27/2011 14:00:13 [id number] FP, [facility], OFFICE [address] [place], [place] 03/07/2011 10:28:05 03/09/2011 08:40:46 [id number] FP, [facility], OFFICE [address] [facility] [address] [place], [place] 6 03/28/2011 14:53:11 03/29/2011 10:06:36 [id number] FP, [facility], OFFICE [address] [place], [place] 6 05/13/2011 09:40:13 05/13/2011 10:11:20 [id number] FP, [facility], OFFICE [address], [place] Paul[address] 6 05/23/2011 14:58:08 05/23/2011 15:28:50 [id number] FP, [facility], OFFICE [address] [facility] [address] [place], [place] [address] 05/30/2011 15:12:19 05/30/2011 15:39:54 [id number] FP, [facility], OFFICE [address] [facility] [address] [place], [place] [address] 06/15/2011 09:27:02 06/18/2011 11:58:32 [id number] Radiology , [facility] [address] [place] [address] 08/09/2011 10:57:20 08/10/2011 12:04:08 [id number] FP, [facility], OFFICE [address] [place] [address] 08/09/2011 11:24:36 08/10/2011 08:59:25 [id number] FP, [facility], OFFICE [address] [place] [address] 09/05/2011 15:47:18 09/07/2011 09:03:03 [id number] FP, [facility], OFFICE [address] [facility] [address] [place], [place] [address] 12/24/2011 16:10:22 12/24/2011 16:41:25 [id number] FP, [facility], OFFICE [address] [place] [place], [place] [address] 01/02/2012 15:17:18 01/02/2012 16:01:26 [id number] FP, [facility], OFFICE [address] [facility] [address] [place], [place] Paul[address] 6 02/20/2012 11:47:36 02/21/2012 10:06:54 [id number] FRANKO [facility], OFFICE [address] [place] [address] 6 02/28/2012 15:26:37 02/29/2012 08:24:19 [id number] FRANKO, [facility], OFFICE [address] [place] [address] 03/27/2012 11:27:30 03/27/2012 11:58:47 [id number] , [facility], OFFICE [address] [place] [address] 6 05/22/2012 16:00:31 05/23/2012 10:13:25 [id number] FRANKO [facility], OFFICE [address] [place] [address] 05/27/2012 16:24:54 05/28/2012 12:48:23 [id number] MD FRANKO Milian [facility], OFFICE [address] [place] [address] 08/26/2012 13:46:36 08/26/2012 14:18:22 [id number] Claudette ABDUL [facility], OFFICE [address] [place] [address] 09/02/2012 10:43:50 09/03/2012 14:05:42 [id number] SIMON Barrera, [facility], OFFICE [address] [place] [address] 6 10/06/2012 15:56:03 10/06/2012 16:37:30 [id number] Claudette ABDUL [facility], OFFICE [address] [place] [address] 10/15/2012 09:52:23 10/16/2012 12:54:52 [id number] MD FRANKO Sotelo [facility], OFFICE [address] [place] [address] 10/18/2012 09:49:09 10/20/2012 13:17:23 [id number] Claudette ABDUL [facility], OFFICE [address] [place] [address] 11/05/2012 10:46:36 11/06/2012 11:24:05 [id number] FRANKO [facility], OFFICE [address] [place] [address] 04/06/2013 11:19:58 04/07/2013 13:17:17 [id number] [facility], OFFICE [address] [place] [address] 06/10/2013 06:21:35 06/10/2013 16:25:35 Influenza vaccine needed [id number] Claudette Franco [facility], OFFICE [address] [place] [address] 6 08/12/2013 11:54:44 08/13/2013 10:15:52 Impacted cerumen [id number] successful IRRIGATION DONE, f/u prn, [id number] Binta Lam MA , [facility], OFF[address] [place] [address] 6 08/19/2013 16:26:04 08/24/2013 10:18:40 Bursitis of shoulder [id number] Patient with clinical presentati on of left [...] contact the clinic if her symptoms worsen. [id number] [facility] [address] [place] [address] 10/07/2013 10:12:00 10/08/2013 09:45:51 Contusion of chest [id number] tylenol, heat or ice, rest, reassuranc e [id number] [facility] [address] [place] [address] 12/28/2013 14:42:12 12/29/2013 09:52:41 Irritable bowel syndrome [id number] I still think she has mild IBS. avoid possible offending foods like fatty foods, tomatos products, dairy. call if not settling down. [id number] Jericho Laureano [facility], OFFICE [address] [place] [address] 03/29/2014 13:59:52 03/30/2014 16:21:31 Dysuria [id number] resolved. never sure she had UTI- as there was never a urinanalys is at first before med. in hospital-h ad microscpic blood in urine but culture was negative.a nd repeat u/a neg she couldhave had a viral infection or partially treated uti. plan stop ceftin today. and follow I review hosptial labs and H and P. [id number] Kathie Rakesh schmitt , [facility], OFFICE [address] [place] [address] 04/15/2014 14:58:21 04/16/2014 09:36:29 Adult health examination [id number] see Risk Assessment and Lifestyle Change Counseling section above Counseling [id number] Osteoporosis [id number] se mark Murray. urge weight bearing exericses Gastroesop hageal reflux disease [id number] controlled nexium otc [id number] CANDY Otto , [facility], OFF[address] [place] [address] 06/29/2014 10:48:45 06/30/2014 08:34:30 Strain of muscle of face [id number] probable muscular strain of left side of face, advised to use ice to affected area several times a day, ibuprofen 200 mg 3 tablets 3 times a day and if no improvemen t in the next 5-7 days return to office for further reevaluati on. [id number] Calos Valiente MD , [facility], [address] [place] [address] 10/27/2014 11:12:18 11/04/2014 12:55:15 Urinary tract infectious disease 83151785 recurrent due to postmenopa usal- not present now- could try to treat self next time gets typical sx. If not better, call . could consider estrogen cream. no sx now rx given, if needs in future. 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 going to [facility] tomorrow Impacted cerumen 68863868 successful IRRIGATION DONE, f/u prn, [id number] Lex Whelan MD , [facility], [address] [place] [address] 04/08/2015 16:13:28 04/08/2015 17:32:38 Carpal tunnel syndrome 40449026 [id number] Binta Lam MA , [facility], [address] [place] [address] 04/18/2015 11:36:54 04/18/2015 12:27:32 Adult health examination 810454697 see Risk Assessment and Lifestyle Change Counseling section above Counseling [id number] Active or passive immunization 406797086 Malignant melanoma [facility] 124979461 [facility] abnormal 377101553 there is a small nodule found on CT scan. [facility] wants repeat CT scan in three months Senile hyperkeratosis 763731804 on neck ret for removal md at [facility] wants it removed.It isn't malignant. [id number] Neeta Franks , [facility], [address] [place] [address] 05/18/2015 12:10:39 05/19/2015 12:07:05 Senile hyperkeratosis 456725515 cryo and curettage done [id number] Viral Baig MD , [facility], [address] [place] [address] 08/28/2015 10:00:58 08/28/2015 10:25:37 Diverticulitis of colon 486124629 K57.32 [id number] Calos Valiente MD , [facility], [address] [place] [address] 08/31/2015 13:20:53 08/31/2015 14:10:01 Left lower quadrant pain 400449537 R10.32 possible mild diverticul tis. add flagyll. call next week with progress note. couldn't giveadequa te amount of urine. if not better in 2 days- get urine dip and micro and u/c to r/o stones and infection [id number] Neetajared Franks , [facility], [address] [place] [address] 10/12/2015 12:07:23 10/13/2015 13:48:26 Irritable bowel syndrome 59001557 K58.9 I still think she has mild IBS. try colace for constipati on. cont culturelee . and veggies. [id number] Calos Valiente MD , [facility], [address] [place] [address] 04/19/2016 10:14:44 04/19/2016 11:01:52 Adult health examination 661659255 Z00.00 see Risk Assessment and Lifestyle Change Counseling section above Counseling [id number] Z71 .9 Gastroesop hageal reflux disease 882693915 K21.9 controlled with omeprazole Osteoporosis 37072017 M8 1.[address] Murray. urge weight bearing exericises Malignant melanoma of eye [id number] C69.90 being treated at [facility] needs lft's tested for melanoma Irritable bowel syndrome 22456833 K58.9 controled with current diet [id number] Calos Valiente MD , [facility], [address] [place] [address] 05/02/2016 13:43:07 05/08/2016 13:54:13 Shoulder pain 66531688 M25.512 maybe mild impingemen t syndrome - getting better on own plan try nsaid. ret prn Impacted cerumen 8641690 6 H61.23 successful IRRIGATION DONE, f/u prn, [id number] Calos Valiente MD , [facility], [address] [place] [address] 07/04/2016 11:10:41 07/04/2016 11:44:33 Active or passive immunization 171268809 Z23 Chest wall pain 81535269 6 R07.89 soft tissue bruise probably from tight bra- recommend larger bra until loses weight [id number] , [facility], [address] [place] [address] 09/25/2016 12:13:03 09/25/2016 12:59:28 Irritable bowel syndrome 05393908 K58.9 try eliminatin g fructans and galacto-ol iosacchari dse no wheat , barley oats. 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 follow [id number] Calos Valiente MD , [facility], [address] [place] [address] 04/22/2017 11:35:56 04/22/2017 12:24:28 Adult health examination 034098932 Z00.00 see Risk Assessment and Lifestyle Change Counseling section above Counseling 006585046 Z71 .9 Irritable bowel syndrome 91749060 K58.9 better with certain dietary restrictio ns Malignant melanoma of eye 593038248 C69.90 see opth in [place] Osteoporosis 45641125 M8 1.[address] Murray. urge weight bearing exericises [id number] Lex Whelan MD , [facility], [address] [place] [address] 06/04/2017 16:35:56 06/04/2017 17:17:19 Hordeolum externum of upper eyelid 067809418 H00.471 [id number] Yazmin Pedraza LPN , [facility], [address] [place] [address] 06/06/2017 16:15:53 06/07/2017 08:24:28 Active or passive immunization 139467794 Z23 [id number] Calos Valiente MD , [facility], [address] [place] [address] 07/02/2017 11:12:18 07/03/2017 10:13:51 Irritable bowel syndrome 86498382 K58.9 tried various dietary restrictio n and fiber supplement s, TTG neg. 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 on probiotics - get GI input besides due for another colonoscop y Internal hemorrhoids 904 10011 K64.8 continue proctozone [id number] Calos Valiente MD , [facility], [address] [place] [address] 10/21/2017 11:42:26 10/21/2017 12:36:17 Irritable bowel syndrome 00673010 K58.9 quiet now Malignant melanoma of eye 021781101 C69.90 see opth in [place] Osteoporosis 22052391 M8 1.[address] Estrada Gastroesop hageal reflux disease 193194382 K21.9 PPI qd but take one day off a week [id number] Tru Roberts MD [facility], [facility] [address] [place] [address] 11/14/2017 08:53:54 11/14/2017 13:51:26 [id number] Sawyer Estrada MD Endocrino log, [address] [address] 04/30/2018 14:51:37 04/30/2018 16:15:53 Osteoporosis 43708486 M81.0 -reassess bone density test -dairy 3 times daily -practice balance by dancing -ca 600 +d tab, 1/2 tab am and 1/2 tab pm -vit d 1000units tabs, 2 tab winter, 1 summer Vitamin D deficiency 347 29888 E55.9 [id number] BOOM Steele , [facility], [address] [place] [address] 07/02/2018 13:41:37 07/02/2018 14:24:34 Active or passive immunization 473128454 Z23 Strain of muscle and/or tendon of lower leg 522145446 S86.911A ankle strain- rest, rom exercises Injury of finger 5021643 8 S69.92XA strst, rom exercise- f/u if not improving in coming 1-2 wkseain- [id number] Sawyer Estrada MD Endocrino logy, [facility] [address] [place] [address] 07/16/2018 10:45:31 07/16/2018 11:47:48 Osteoporosis 51137796 M81.0 -reassess bone density test -dairy 3 times daily -practice balance by dancing -limit calcium to 250mg via supplement -vit d 1000units tabs, 2 tab winter, 1 summer Vitamin D deficiency 347 25063 E55.9 [id number] Ty Sams MD , [facility], [address] [place] [address] 08/13/2018 15:28:45 08/13/2018 16:22:01 Adult health examination 044972062 Z00.00 see Risk Assessment and Lifestyle Change Counseling section above Counseling 700622855 Z71 .9 Depression screening 171 349508 Z13.89 depression screening tool administer ed, entered into emr, scored and discussed, time greater than 7.5 minutes Solitary n odule of lung 159386518 R91.1 f/u ct with no change out far enough to consider benign Malignant melanoma of eye 448905215 C69.90 followed by [facility] Gastroesop hageal reflux disease 108068221 K21.9 continue pantaprazo le Pre-surger y evaluation 813940910 Z01.818 clear for eye surgery [id number] Sawyer Estrada MD Endocrino logy, [facility] [address] [place] [address] 01/21/2019 10:17:59 01/21/2019 11:16:38 Osteoporosis 13831313 M81.0 -dairy or dairy replacemen t 2 times daily-spin ach-practi ce balance by dancing - no calcium supplement s-vit d 1000units tabs, 2 tab winter, 1 summer -labs, if normal, ask me to order to order prolia, then authorize prolia to be sent to [facility] for administra tion, then book appointmen t with endocrine nurse to administer every 6mo Vitamin D deficiency 347 56515 E55.9 [id number] Sawyer Estrada MD Endocrino logy, [facility] [address] [place] [address] 07/29/2019 10:25:03 07/29/2019 13:23:12 Osteoporosis 00358388 M81.0 -add risedronat e 35 mg by mouth once weekly with a full glass of water on an empty stomach while sitting or standing; do not lie down after taking risedronat e for at least 1h -soy milk or other replacemen t dairy once daily, almonds-ad d kale-aim for calcium 1000mg via diet then recheck urine calcium 24h Vitamin D deficiency 347 67343 E55.9 -vitamin d 1000units by mouth once daily Health Concerns Section Related Observation LastModified by Organization Detai ls LastModified Time None Recorded Concern Status LastModified by Organization Details LastModified Time None Recorded Advance Directives Directive N: Payers Encounter Date Sequence Insurance Name Policy Number Policy Tamayo Covered Member ID Tamayo Member ID Guarantor Name 07/02/2018 1 MEDICARE -[place]: [employer] Irene Porter [id number] Irene Porter 07/02/2018 2 [employer] HE[employer] OPTIONS - PLAN T2 (INDEMNITY) Irene Porter [id number] Irene Porter 07/16/2018 1 MEDICARE B-[place]: [facility] Irene Porter [id number] Irene Porter 07/16/2018 2 [employer] HE[employer] OPTIONS - PLAN T2 (INDEMNITY) Irene Porter [id number] Irene Porter 08/13/2018 1 [facility] Irene Porter [id number] Irene Porter 08/13/2018 2 [employer] OPTIONS - PLAN T2 (INDEMNITY) Irene Porter [id number] Irene Porter 01/21/2019 1 MEDICARE [place]: [facility] Irene Porter [id number] Irene Porter 01/21/2019 2 [employer] HE[employer]ARE OPTIONS - PLAN T2 (INDEMNITY) Irene Porter [id number] Irene Porter 07/29/2019 1 [place]: [facility] Irene Porter [id number] Irene Porter 07/29/2019 2 [employer] HE[employer] OPTIONS - PLAN T2 (INDEMNITY) Irene Aikena [id number] Irene Porter Notes Date Note Type Note Provider Name and Address Organization Details Recorded Time 07/02/2018 text/html AFTER GARDENING 4 days ago, R foot pain and left 3rd finger had been hurting x > month. no swelling, Irene Sams, [facility] [address] [place] [address], [phone], [facility] 07/05/2018 14:22:41 07/16/2018 text/html 77yo woman, with [...] return as needed. she Sawyer Estrada MD [address] [place] [address], [phone], [facility] 07/16/2018 11:51:02 08/13/2018 text/html Physical Exam/FemaleReported bypatient.PHAPatient is here for a Wellness Visit. She describes her health status as fair. Patient's health is worse than last year.Notes:being treated for melanoma right eye at [facility] and EAr-is scheduled for surgery nd needs [...] milk- IBS is better Ty Sams MD [address] [place] [address], [phone], [facility] 08/21/2018 15:29:01 01/21/2019 text/html 78yo woman, with [...] no bone breaks lately Sawyer Estrada MD [address] [place] [address], [phone], [facility] 01/21/2019 10:59:03 07/29/2019 text/html 78yo woman, with [...] 600mg calcium once daily Sawyer Estrada MD [address] [place] [address], [phone], [facility] 07/29/2019 11:14:10 OBGyn Episode No OBEpisode recorded.
--- OUTSIDE RECORDS SUMMARY | 2024-12-22 16:30 | XMS_ITS ---
Author Organization [facility] Address [address] [place] [address] Care Team Providers Care Help Desk Support Specialist Name Role Phone Anjelica Clarke MD Primary Care Provider Frank Mccoy [phone] REASON FOR VISIT medication wrong Encounters Encounter Location Date Provider Diagnosis [facility] [address] [place] [address] 12/05/2023 Frank Avila Constipation, unspec ified constipation type K59.00 ; Left lower quadrant abdominal pain R10.32 ; Gastroesophageal reflux disease, esophagitis presence not specified K21.9 ; Abnormal gallbladder ultrasound R93.2 ; GERD (gastroesophageal reflux disease) K21.9 ; Hiatal hernia K44.9 and Irritable bowel syndrome K58.9 Assessments Encounter Date Diagnosis (ICD Code) Assessment Notes Treatment Notes Treatment Clinical Notes Section Notes 12/05/2023 Constipation, unspecified constipation type (ICD-10 - K59.00) 12/05/2023 Left lower quadrant abdominal pain (ICD-10 - R10.32) 12/05/2023 Gastroesophageal reflux disease, esophagitis presence not specified (ICD-10 - K21.9) 12/05/2023 Abnormal gallbladder ultrasound (ICD-10 - R93.2) 12/05/2023 GERD (gastroesophageal reflux disease) (ICD-10 - K21.9) 12/05/2023 Hiatal hernia (ICD-10 - K44.9) 12/05/2023 Irritable bowel syndrome (ICD-10 - K58.9) Plan Of Treatment Medication Medication Name Sig Start Date Stop Date Notes Cyclobenzaprine HCl 5 MG TAKE 1 TABLET B Y MOUTH THREE TIMES DAILY NEEDED FOR MUSCLE SPASM Oral Bisacodyl 5 MG 1 tablet as needed Orally About once a week Vitamin D3 50 MCG (1999 UT) 1 tablet Ora lly Once a day Probiotic - as directed Orally Calcium 500 MG as directed Orally Once a day Progress Notes * SIXTOROCIODOB:1940 (83 yo F)Acc No.[id number]:12/05/2023 Patient:?ROCIO HENSON :1940???Age:83 Y???Sex:Female Address: [facility] [place], [address] * Refills? Stop Probiotic Capsule, -, Orally, as directed Stop Vitamin D3 Capsule, 50 MCG (1999 UT), Orally, 1 tablet, Once a day Stop Bisacodyl Tablet Delayed Release, 5 MG, Orally, 1 tablet as needed Stop Cyclobenzaprine HCl Tablet, 5 MG, Oral, TAKE 1 TABLET BY MOUTH THREE TIMES DAILY NEEDED FOR MUSCLE SPASM Stop Calcium Tablet, 500 MG, Orally, as directed, Once a day * true * Date:? Generated for Juan Ramon taveras/Morro/Yovanyitting on:?12/22/2024 04:29 PM EDT
--- OUTSIDE RECORDS SUMMARY | 2024-12-22 16:30 | XMS_ITS ---
Author Organization [facility] Address [address] [place] [address] Care Team Providers Care Dough Braker Name Role Phone Anjelica Clarke MD Primary Care Provider Frank Mccoy [phone] Allergies Allergen (clinical drug ingredient) Drug/Non Drug Allergy documented on EMR Reaction Allergy Type Onset Date Status Sulfur Unknown Drug Allergy Active aspirin Aspirin Unknown Drug Allergy Active any medication that ends in dine (uncoded) Unknown Allergy Active REASON FOR VISIT Patient presents today for right sided abd pain Medications Medication SIG (Take, Route, Frequency, Duration) Notes Start Date End Date Status Glucosamine 1500 1 capsule with a meal Orally twice a day Active prednisoLONE Acetate Not-Taking Vitamin D3 50 MCG (1999 UT) 1 tablet Orally Once a day Active Probiotic - as directed Orally Active Vitamin B Complex - as directed Orally Active Cyclobenzaprine HCl 5 MG TAKE 1 TABLET BY MOUTH THREE TIMES DAILY NEEDED FOR MUSCLE SPASM Oral for 2 Active Latanoprost Active Timolol Maleate Acti ve Pantoprazole Sodium 40 MG 1 tablet Oral Once or twice a day for the reflux Active Brimonidine Tartrate Active Ginkgo 120 as directed Orally as directed Active Calcium 500 MG as directed Orally Once a day Active Cranberry 4200 1/2 tablet with meals Orally Three times a day Active Bisacodyl 5 MG 1 tablet as needed Orally About once a week Active Apple Cider Vinegar Active Social History Tobacco Use: Social History Observation Description Date Details (start date - stop date) Never Smoker NA - NA Tobacco Use/Smoking Question Answer Notes Patient is a nonsmoker Alcohol Screen Question Answer Notes Did you have a drink containing alcohol in the p ast year? No Points 0 Interpretation Negative Section Notes: Nonsmoker; no sig alcohol Vital Signs Temperature 99.1 degrees Fahrenheit 12/04/19 24 Blood pressure systolic 000 mm Hg 12/04/19 24 Blood pressure diastolic 00 mm Hg 024 Height 61 in 12/04/2023 Weight 130 lbs 12/04/2023 BMI 24.56 kg/m2 12/04/2023 Encounters Encounter Location Date Provider Diagnosis [facility] [address] [place] [address] 12/04/2023 Frank Avila Irritable bowel syndrome K58.9 ; Hiatal hernia K44.9 and GERD (gastroesophageal reflux disease) K21.9 Assessments Encounter Date Diagnosis (ICD Code) Assessment Notes Treatment Notes Treatment Clinical Notes Section Notes 12/04/2023 Irritable bowel syndrome (ICD-10 - K58.9) Use Metamucil 1 or 2 fiber pills with a glass of water every day or twice a day to try to make the BM's more regular. Use Senokot as needed for constipation. Overall, Rocio appears quite well from a clinical standpoint. She is not having any new or worrisome GI complaints at this time. We did have a detailed discussion today regarding her underlying hiatal hernia and associated reflux, as well as the underlying irritable bowel syndrome. We did review the reassuring findings on all of her studies including the CT scan, MRI, and laboratories. We also reviewed that her excellent clinical appearance and stable weight are certainly reassuring as well. Based on all of this I advised her that I do not think she needs any diagnostic testing on my part, I have advised her to continue pantoprazole twice a day before breakfast and evening, as well as use any p.r.n. antacids as needed. I don't think a repeat endoscopy is needed. I also advised her to begin using Metamucil fiber pills once or twice a day with plenty of water to see if that can improve her bowel movement regularity and cut down her episodes of abdominal discomfort. I don't think she needs a followup colonoscopy given her age and clinical history. I would hold off on any antispasmodics in regard to her abdominal discomfort given her age and potential side effects of those medications. I did advise her to certainly avoid any particular foods that bother her but she should try to eat a fairly well rounded diet with fruits and vegetables. I advised her to try not to get too focused on her diet and bowel movements. If things remain stable I advised her to see me on a p.r.n. basis. I advised her to certainly call if she has any problems or questions I can be of assistance with. Rocio seemed comfortable with this plan. Thank you again for allowing me to have participated in Rocio's care. I shall continue to keep you advised of her progress as needed. Please do not hesitate to contact me if I can be of any further assistance in the future. 12/04/2023 Hiatal hernia (ICD-10 - K44.9) Overall, Rocio appears quite well from a clinical standpoint. She is not having any new or worrisome GI complaints at this time. We did have a detailed discussion today regarding her underlying hiatal hernia and associated reflux, as well as the underlying irritable bowel syndrome. We did review the reassuring findings on all of her studies including the CT scan, MRI, and laboratories. We also reviewed that her excellent clinical appearance and stable weight are certainly reassuring as well. Based on all of this I advised her that I do not think she needs any diagnostic testing on my part, I have advised her to continue pantoprazole twice a day before breakfast and evening, as well as use any p.r.n. antacids as needed. I don't think a repeat endoscopy is needed. I also advised her to begin using Metamucil fiber pills once or twice a day with plenty of water to see if that can improve her bowel movement regularity and cut down her episodes of abdominal discomfort. I don't think she needs a followup colonoscopy given her age and clinical history. I would hold off on any antispasmodics in regard to her abdominal discomfort given her age and potential side effects of those medications. I did advise her to certainly avoid any particular foods that bother her but she should try to eat a fairly well rounded diet with fruits and vegetables. I advised her to try not to get too focused on her diet and bowel movements. If things remain stable I advised her to see me on a p.r.n. basis. I advised her to certainly call if she has any problems or questions I can be of assistance with. Rocio seemed comfortable with this plan. Thank you again for allowing me to have participated in Rocio's care. I shall continue to keep you advised of her progress as needed. Please do not hesitate to contact me if I can be of any further assistance in the future. 12/04/2023 GERD (gastroesopha geal reflux disease) (ICD-10 - K21.9) Use the Pantoprazole before breakfast and before the evening meal. Use the Apple cider vinegar pill for the reflux as well. Overall, Rocio appears quite well from a clinical standpoint. She is not having any new or worrisome GI complaints at this time. We did have a detailed discussion today regarding her underlying hiatal hernia and associated reflux, as well as the underlying irritable bowel syndrome. We did review the reassuring findings on all of her studies including the CT scan, MRI, and laboratories. We also reviewed that her excellent clinical appearance and stable weight are certainly reassuring as well. Based on all of this I advised her that I do not think she needs any diagnostic testing on my part, I have advised her to continue pantoprazole twice a day before breakfast and evening, as well as use any p.r.n. antacids as needed. I don't think a repeat endoscopy is needed. I also advised her to begin using Metamucil fiber pills once or twice a day with plenty of water to see if that can improve her bowel movement regularity and cut down her episodes of abdominal discomfort. I don't think she needs a followup colonoscopy given her age and clinical history. I would hold off on any antispasmodics in regard to her abdominal discomfort given her age and potential side effects of those medications. I did advise her to certainly avoid any particular foods that bother her but she should try to eat a fairly well rounded diet with fruits and vegetables. I advised her to try not to get too focused on her diet and bowel movements. If things remain stable I advised her to see me on a p.r.n. basis. I advised her to certainly call if she has any problems or questions I can be of assistance with. Rocio seemed comfortable with this plan. Thank you again for allowing me to have participated in Rocio's care. I shall continue to keep you advised of her progress as needed. Please do not hesitate to contact me if I can be of any further assistance in the future. Plan Of Treatment Treatment Notes Assessment Notes Irritable bowel syndrome Use Metamucil 1 or 2 fiber pills with a glass of water every day or twice a day to try to make the BM's more regular. Use Senokot as needed for constipation. GERD (gastroesophageal reflux disease) U se the Pantoprazole before breakfast and before the evening meal. Use the Apple cider vinegar pill for the reflux as well. Next Appt Details Follow Up: prn, Reason: Progress Notes * ROCIO HENSONDOB:1940 (83 yo F)Acc No.[id number]:12/04/2023 Progress Notes Patient:?ROCIO HENSON Provider:?Frank Avila MD :1940???Age:83 Y???Sex:Female D ate:12/04/2023 Address:[address] [place] [address] [id number] Pcp:Anjelica Clarke MD Subjective: * Chief Complaints: * ???Patient presents today fo r right sided abd pain * HPI: ???incontinence:? I saw Rocio in followup today in regard to her underlying history of gastroesophageal reflux, irritable bowel syndrome, and abdominal discomfort. ?I last saw Rocio in April of 2022, at which time we had reviewed her history of reflux and irritable bowel syndrome. She reports that she has still been experiencing some intermittent symptoms of reflux with associated heartburn. She has been using pantoprazole at least twice a day with moderately good relief. She denies any dysphagia, early satiety, nausea, nor vomiting. She does report that her bowel movements remain irregular with a bowel movement ranging from every third day to multiple bowel movements during the day. She does experience some right-sided abdominal pain as well. She has not noticed any hematochezia, melena, jaundice, nor weight loss. She has not been using any recent fiber supplements. ?In January of [address] scan of the abdomen that described some fatty liver and liver cysts, but no evidence of any other intra-abdominal abnormalities Such as diverticulitis, pancreatic disease, nor biliary disease. She also had a MRI of the abdomen in May 2023 describing the liver cysts but no significant abnormalities. Laboratories in 2022 revealed normal chemistries, renal function, LFTs, and CBC. ?In reviewing her history she has had previous colonoscopies, as recently as 2018, and an upper endoscopy in 2019 reviewing her moderate-sized hiatal hernia and with biopsies negative for celiac disease. ?She does try to keep a diary of her diet so she can avoid any particular foods that bother her and also keeps a diary of her bowel movements so she can now how she is doing in that regard. * ROS:?General/Constitutional:?Change in appetite?denies.?Chills?denies.?Fatigue?denies.?Ophthalmologic:?Comments?all negative.?ENT:?Comments?all negative.?Respiratory:?hemoptysis?denies.?Cough?denies.?Cardiovascular:?Chest pain?denies.?Orthopnea?denies.?Gastrointestinal:?Comments?See HPI for details.?Genitourinary:?Hematuria?denies.?Dysuria?denies.?Musculoskeletal:?Painful joints?denies.?Weakness?denies.?Skin:?Itching?denies.?Rash?denies.?Neurologic:?Headache?denies.?Seizures?denies.?Psychiatric:?Comments?all negative.? * Medical History:? * Surgical History:?Tubal liga tion Broken right hip Breast biopsy-benign Colon surgery for diverticulitis--partial colon resection Cataract surgery OD Hysterectomy [facility] for gallstones 05/2020-Dr. Phelan--pathology was negative for any sign of malignancy Partial thyroidectomy at [facility] in Fall 2021 for benign lesion * Hospitalization/Major Diagno stic Procedure:?No Hospitalization History. * Family History:?Father: dece ased.?Mother: .? Hx of colon polyps in both children; no colon cancer. * Social History:?Tobacco Use:?Tobacco Use/Smoking?Patient is a?nonsmoker.?Drugs/Alcohol:?Alcohol Screen?Did you have a drink containing alcohol in the past year??No,?Points?0,?Interpretation?Negative.?Miscellaneous:?Marital status: single. Occupation: retired. ???Nonsmoker; no sig alcohol. * Medications:?TakingProbiotic - Capsule as directed Orally Vitamin D3 50 MCG (2000 UT) Capsule 1 tablet Orally Once a dayVitamin B Complex - Tablet as directed Orally Glucosamine 1500 1 capsule with a meal Orally twice a dayGinkgo 120 mg as directed Orally as directedCranberry 4200 mg 1/2 tablet with meals Orally Three times a dayCalcium 500 MG Tablet as directed Orally Once a dayApple Cider Vinegar Bisacodyl 5 MG Tablet Delayed Release 1 tablet as needed Orally , Notes: About once a weekTimolol Maleate Latanoprost Brimonidine Tartrate Pantoprazole Sodium 40 MG Tablet Delayed Release 1 tablet Oral Once or twice a day for the refluxCyclobenzaprine HCl 5 MG Tablet TAKE 1 TABLET BY MOUTH THREE TIMES DAILY NEEDED FOR MUSCLE SPASM Oral Taking Probiotic - Capsule as directed Orally Taking Vitamin D3 50 MCG (2000 UT) Capsule 1 tablet Orally Once a dayTaking Vitamin B Complex - Tablet as directed Orally Taking Glucosamine 1500 1 capsule with a meal Orally twice a dayTaking Ginkgo 120 mg as directed Orally as directedTaking Cranberry 4200 mg 1/2 tablet with meals Orally Three times a dayTaking Calcium 500 MG Tablet as directed Orally Once a dayTaking Apple Cider Vinegar Taking Bisacodyl 5 MG Tablet Delayed Release 1 tablet as needed Orally , Notes: About once a weekTaking Timolol Maleate Taking Latanoprost Taking Brimonidine Tartrate Taking Pantoprazole Sodium 40 MG Tablet Delayed Release 1 tablet Oral Once or twice a day for the refluxTaking Cyclobenzaprine HCl 5 MG Tablet TAKE 1 TABLET BY MOUTH THREE TIMES DAILY NEEDED FOR MUSCLE SPASM Oral Not-Taking/PRNprednisoLONE Acetate Medication List reviewed and reconciled with the patientNot-Taking/PRN prednisoLONE Acetate Medication List reviewed and reconciled with the patient * Allergies:?Sulfurany medicat ion that ends in dineAspirinyes[Allergies Verified] Objective: * Vitals:?Wt: 130 lbs, Ht: 61 in, BMI:24.56 Index, BP: 000/00 mm Hg, Temp: 99.1. * Examination: ???General Examination: ?GENERAL APPEARANCE:?pleasant, well nourished, well developed, in no acute distress.?EYES:?sclera non-icteric.?ORAL CAVITY:?mucosa moist.?NECK/THYROID:?no cervical lymphadenopathy, neck supple.?SKIN:?nonjaundiced, no spider angiomata.?HEART:?S1, S2 normal.?LUNGS:?clear to auscultation bilaterally.?ABDOMEN:?normal bowel sounds, no guarding or rigidity, no guarding or rigidity, no masses palpable, soft, nontender, nondistended.?EXTREMITIES:?no edema.?NEUROLOGIC:?alert and oriented.? Assessment: * Assessment: 1.?Irritable bowel syndrome - K58.9 (Primary)?2.?Hiatal hernia - K44.9?3.?GERD (gastroesophageal reflux disease) - K21.9? Overall, Rocio appears quite w ell from a clinical standpoint. She is not having any new or worrisome GI complaints at this time. We did have a detailed discussion today regarding her underlying hiatal hernia and associated reflux, as well as the underlying irritable bowel syndrome. We did review the reassuring findings on all of her studies including the CT scan, MRI, and laboratories. We also reviewed that her excellent clinical appearance and stable weight are certainly reassuring as well. Based on all of this I advised her that I do not think she needs any diagnostic testing on my part, I have advised her to continue pantoprazole twice a day before breakfast and evening, as well as use any p.r.n. antacids as needed. I don't think a repeat endoscopy is needed. I also advised her to begin using Metamucil fiber pills once or twice a day with plenty of water to see if that can improve her bowel movement regularity and cut down her episodes of abdominal discomfort. I don't think she needs a followup colonoscopy given her age and clinical history. I would hold off on any antispasmodics in regard to her abdominal discomfort given her age and potential side effects of those medications. I did advise her to certainly avoid any particular foods that bother her but she should try to eat a fairly well rounded diet with fruits and vegetables. I advised her to try not to get too focused on her diet and bowel movements. If things remain stable I advised her to see me on a p.r.n. basis. I advised her to certainly call if she has any problems or questions I can be of assistance with. Rocio seemed comfortable with this plan. Thank you again for allowing me to have participated in Rocio's care. I shall continue to keep you advised of her progress as needed. Please do not hesitate to contact me if I can be of any further assistance in the future. Plan: * Treatment: 2.?GERD (gastroesophageal re flux disease)? Notes: Use the Pantoprazole before breakfast and before the evening meal. Use the Apple cider vinegar pill for the reflux as well.?? * Procedure Codes:?1036F TOBAC CO [id number] BP SCR NOT PRFRM REC REASON NOS * Preventive Medicine:? ??Urinary Incontinence:?Urinary Incontinence?Assessment:?Absent,?Plan of care documented:?No, reason not specified.? * Follow Up:?prn * * Sign off status: Completed true * Provider:?Frank Avila MD Date:? 024 Generated for Juan Ramon taveras/Morro/Dlsmitting on:?12/22/2024 04:29 PM EDT History and Physical Notes * HPI (History of Present Illness) Category Sub-Category Detail Notes Category Not es incontinence I saw Rocio in followup today in regard to her underlying history of gastroesophageal reflux, irritable bowel syndrome, and abdominal discomfort. I last saw Rocio in April of 2022, at which time we had reviewed her history of reflux and irritable bowel syndrome. She reports that she has still been experiencing some intermittent symptoms of reflux with associated heartburn. She has been using pantoprazole at least twice a day with moderately good relief. She denies any dysphagia, early satiety, nausea, nor vomiting. She does report that her bowel movements remain irregular with a bowel movement ranging from every third day to multiple bowel movements during the day. She does experience some right-sided abdominal pain as well. She has not noticed any hematochezia, melena, jaundice, nor weight loss. She has not been using any recent fiber supplements. In January of [address] scan of the abdomen that described some fatty liver and liver cysts, but no evidence of any other intra-abdominal abnormalities Such as diverticulitis, pancreatic disease, nor biliary disease. She also had a MRI of the abdomen in May 2023 describing the liver cysts but no significant abnormalities. Laboratories in 2022 revealed normal chemistries, renal function, LFTs, and CBC. In reviewing her history she has had previous colonoscopies, as recently as 2017, and an upper endoscopy in 2019 reviewing her moderate-sized hiatal hernia and with biopsies negative for celiac disease. She does try to keep a diary of her diet so she can avoid any particular foods that bother her and also keeps a diary of her bowel movements so she can now how she is doing in that regard. Examination Category Sub-Category Detail Notes Category Not es General Examination GENERAL APPEARANCE: pleasant , well nourished, well developed, in no acute distress HEAD: EYES: sclera non-icteric EARS: NOSE: THROAT: NECK/THYROID: no cervical lymphade nopathy, neck supple HEART: S1, S2 normal CHEST: LUNGS: clear to auscultatio n bilaterally ABDOMEN: normal bowel sounds, no guarding or rigidity, no guarding or rigidity, no masses palpable, soft, nontender, nondistended NEUROLOGIC: alert and oriented SKIN: nonjaundiced, no spi lea angiomata EXTREMITIES: no edema PERIPHERAL PULSES: BACK: BREASTS: MUSCULOSKELETAL: MALE GENITOURINARY: LYMPH NODES: RECTAL EXAM: FEMALE GENITOURINARY: ORAL CAVITY: mucosa moist
[2024-12-22 17:03] LABS: Albumin Level 4.1 g/dL (3.5-5.0); Anion Gap 11 (12-20); Blood Urea Nitrogen 17 mg/dL (9-16); Calcium 9.4 mg/dL (8.4-10.2); Carbon Dioxide 29 mmol/L (22-29); Chloride 105 mmol/L (96-108); Estimated Glomerular Filt Rate > 60; Glucose Random 100 mg/dL (60-115); Potassium 3.3 mmol/L (3.3-5.1); Sodium 142 mmol/L (135-145)
== END 2024-12-22 13:51 | disposition home or self-care (01) ==
LOC: HO.HMGCLDS 13:50
PROVIDERS: PCP Nurse Practitioner Family; Visit Provider Internal Medicine Endocrinology, Diabetes & Metabolism
DX: M81.0 Age-related osteoporosis without current pathological fracture (principal)
CPT/HCPCS: 36415; 80048; 82040

== ENCOUNTER 2025-01-05 13:37 | Outpatient (REF) | payer MEDICARE, SELFPAY ==
--- NOTE | ~2025-01-05 | XR_ITS ---
EXAMINATION: XR HAND 3 OR MORE VIEWS RIGHT HISTORY: M79.641 - Pain in right hand COMPARISON: There are no prior studies available for comparison. FINDINGS: Three views of the right hand are submitted. The bones are osteopenic. There is no fracture or dislocation. 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 Moderate osteoarthritis is seen involving the DIP and PIP joints of all the fingers, as well as the interphalangeal joint of the thumb. The soft tissues are unremarkable. XR/XR hand RT min 3V IMPRESSION: Osteopenia. Osteoarthritis as described. Electronically signed by: Frank Arenas MD 01/06/2025 11:45 AM EDT
--- OUTSIDE RECORDS SUMMARY | 2025-01-05 16:42 | XMS_ITS | Data Portability ---
Author Organization [facility], [facility] Address [address] [place] [address] Care Team Providers Care Crusher Supervisor Name Role Phone TY SAMS Primary Care [...] recorded. Lab calcium, 24-hour urine 2018 019 [facility], [address] [place] [address], [address], 9 21:12:19 creatinine , 24-hour urine 2018 019 [facility], [address] [place] [address], [address], 9 21:12:21 PTH (parathyro id hormone), intact, serum or plasma 2018 019 [facility], [address] [place] [address], [address], 9 14:18:39 magnesium, serum or plasma 2018 019 [facility], [address] [place] [address], [address], 9 14:55:30 TSH, serum or plasma 2018 019 [facility], [address] [place] [address], [address], 9 14:18:39 vitamin D, 25-hydroxy , total, serum 2018 019 [facility], [address] [place] [address], [address], 9 14:18:40 renal function panel, serum 2018 019 [facility], [address] [place] [address], [address], 9 14:55:29 Referral None recorded. Procedures None recorded. Surgeries None recorded. Imaging US, liver 2017 018 [facility] (Imaging), [address], [place], [place], [address], 8 11:16:52 Medication Orders risedronat e 35 mg tablet 2018 019 INTERFACE [id number], [address], [place], [id number], 9 11:10:03 Patient TargetsNo targets recorded. Patient Instructions Encounter Date Encounter Id Patient Instructions Last Modified By Organization Details Last Modified Time 08/13/2018 [id number] advance directives: care instructions sesrick Not available [...] en 0.4-4 .0 mIU/m L. Not Available [address], [address], 01/21/2019 14:18:39 01/22/20 19 01/21/2019 PTH (para thyro id hormo ne), intac t, serum or plasm a PTH intact 22.8 pg/mL 9.6-66 .3 Not Available [address], [address], 01/21/2019 14:18:39 01/22/2001/21/2019 vitam in D, 25-hy [...] er than 30 ng/mL . Not Available [address], [address], 01/21/2019 14:18:40 01/22/2001/21/2019 renal funct ion panel , serum glucose 105 mg/dL 70-100 high Not Available [address], [address], 01/21/2019 14:55:29 01/22/2001/21/2019 renal funct ion panel , serum BUN 20 mg/dL 7-18 high Not Available [address], [address], 01/21/2019 14:55:29 01/22/2001/21/2019 renal funct ion panel , serum creatinine 0.8 mg/dL 0.8-1. 3 Not Available [address], [address], 01/21/2019 14:55:29 01/22/2001/21/2019 renal funct ion panel , serum B/C 25.0 ratio Not Available [address], [address], 01/21/2019 14:55:29 01/22/2001/21/2019 renal funct ion panel , serum GFR -non 77.9 mL/mi n Recom doc d GFR by the Natio nal Kidne y Found ation >60 mL/mi n/1.7 3m2 - Vane l <60 mL/mi n/1.7 3m2 - Chron ic Kidne y Disea se <15 mL/mi n/1.7 3m2 - Kidne y Failu re Not Available [address], [address], 01/21/2019 14:55:29 01/22/2001/21/2019 renal funct ion panel , serum GFR - if 89.6 mL/mi n For Afric an Ameri can patie nts: Resul ts Multi plied by 1.21 Not Available [address], [address], 01/21/2019 14:55:29 01/22/2001/21/2019 renal funct ion panel , serum sodium 145 mmol/ L 136-14 5 Not Available [address], [address], 01/21/2019 14:55:29 01/22/2001/21/2019 renal funct ion panel , serum potassium 4.1 mmol/ L 3.5-5. 1 Not Available [address], [address], 01/21/2019 14:55:29 01/22/2001/21/2019 renal funct ion panel , serum chloride 106 mmol/ L 96-107 Not Available [address], [address], 01/21/2019 14:55:29 01/22/2001/21/2019 renal funct ion panel , serum anion gap 10.2 5.0-15 .0 Not Available [address], [address], 01/21/2019 14:55:29 01/22/2001/21/2019 renal funct ion panel , serum CO2 29 mmol/ L 21-32 Not Available [address], [address], 01/21/2019 14:55:29 01/22/2001/21/2019 renal funct ion panel , serum calcium 9.4 mg/dL 8.5-10 .3 Not Available [address], [address], 01/21/2019 14:55:29 01/22/2001/21/2019 renal funct ion panel , serum albumin 3.7 g/dL 3.4-5. 0 Not Available [address], [address], 01/21/2019 14:55:29 01/22/20 19 01/21/2019 renal funct ion panel , serum phosphorous 3.50 mg/dL 2.50-4 .90 Not Available [address], [address], 01/21/2019 14:55:29 01/22/20 19 01/21/2019 magne sium, serum or plasm a magnesium 2.0 mg/dL 1.8-2. 4 Not Available [address], [address], 01/21/2019 14:55:30 02/21/20 19 02/23/2019 calci um, 24-ho ur urine calcium, 24 hour urine 411 mg/24 _h high Refer ence Range 35-25 0 Low calci um diet 35-20 0 TOTAL URINE VOLUM E: 1700/ 24 Not Available [facility] [address], [address], 02/23/2019 21:12:19 02/21/20 19 02/23/2019 creat inine , 24-ho ur urine creatinine, 24 hour urine 0.97 g/24_ h 0.50-2 .15 normal TOTAL URINE VOLUM E: 1700/ 24 Not Available [facility] [address], [address], 02/23/2019 21:12:21 08/08/20 18 07/31/2018 bone densi [...] re, parent al hip fractu re Techni alura Qualit y: L1 and L4 were exclud [...] This scan was perfor med using the Qu[employer]x ABar Prodig y Primo 10 densit ometer at [facility] , [address] [place]. Read by: Cristiano acuna PA-C, CCD Electr onical ly signed Estrada rajan Physic cornelia: Jeannette Andersen [facility] (Imaging) [address], [place], [address], 08/09/2018 19:45:09 08/25/20 18 08/25/2018 US, liver [...] Readkoffi rajan Physic cornelia: Lex Odell MD [facility] (Imaging) [address] , [place], [address], 01/26/2019 09:26:11 01/29/20 19 01/28/2019 MAMMO , [...] fibrog landul ar densit ies. POS - [id number] Electr onical ly Signed by: MERON CORADO on 01/29/20 6:46 PM Interp reted by: Meron Corado MD Signed by: Meron Corado MD 01/28/19 CC Recipi ents: Anjelica Clarke MD - Fax Final result TY SAMS jennifer [facility] [address] [place] [address], [address], 01/28/2019 20:22:13 01/29/20 19 01/28/2019 MAMMO , scree tez No observ ation record ed. [email or web address] [address], [address], 02/02/2019 09:08:34 Result Notes None recorded. 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 needs lft's q yr and ultrasoun d of abdomen qyr Calos Valiente MD [address] [place] [address] [place], [address], [facility] 7 14:58:02 Computed tomograp hy result abnormal 608474018 Completed 10/12/2015 Calos Valiente MD [address] [place] [address] [place], [address], [facility] 6 13:28:27 Solitary nodule of lung 170902903 Active [address] low dose repeat CT Sep 2017 Calos Valiente MD [address] [place] [address] [place] [address], [facility] 7 08:18:25 Mixed hyperlip idemia 176132131 Active 2008 Calos Valiente MD [address] [place] [address] [place] [address], [facility] 6 13:28:26 Nervous system symptoms Completed 200409/05/2011 Calos Valiente MD [address] [place] [address] [place], [address], [facility] 6 13:28:26 Colitis, enteriti s and gastroen teritis presumed infectio us 447001401 Completed 04/06/2013 Calos Valiente MD [address] [place], [place] [address], [address], [facility] 6 13:28:26 Abnormal findings on diagnost ic imaging of breast 981138462 Completed 200007/18/2009 Calos Valiente MD [address] [place] [address] [place], [address], [facility] 6 13:28:26 Gastroes ophageal reflux disease 263907888 Active 2006 Calos Valiente MD [address] [place] [address] [place], [address], [facility] 6 13:28:26 Non-toxi c uninodul ar goiter 185694071 Completed 200310/28/2014 Calos Valiente MD [address] [place], [place] [address], [address], [facility] 6 13:28:26 Nausea and vomiting 00015558 Completed 200604/06/2013 Calos Valiente MD [address] [place] [address] [place], [address], [facility] 6 13:28:26 Lateral epicondy litis 510167009 Completed 200407/18/2009 Calos Valiente MD [address] [place] [address] [place], [address], [facility] 6 13:28:26 Divertic ulitis of colon 513230154 Active 2006 Calos Valiente MD [address] [place] [address] [place], [address], [facility] 6 13:28:26 Neck pain 35623881 Completed 200307/18/2009 Calos Valiente MD [address] [place] [address] [place], [address], [facility] 6 13:28:26 Atypical facial pain 19015570 Completed 200102/20/2011 Calos Valiente MD Replaced by [facility] [place], [address], [facility] 6 13:28:26 Left lower quadrant pain 695511485 Completed 200704/06/2013 Calos Valiente MD [address] [place] [address] [place], [address], [facility] 6 13:28:26 Epidermo id cyst of skin 080479437 Completed 09/05/2011 Calos Valiente MD [address] [place] [address] [place], [address], [facility] 6 13:28:26 Epidermo id cyst of skin 734838711 Completed 200102/20/2011 Calos Valiente MD [address] [place] [address] [place], [address], [facility] 6 13:28:26 Sprain of shoulder and upper arm Completed 200604/06/2013 Calos Valiente MD [address] [place] [address] [place], [address], [facility] 6 13:28:26 Acute maxillar y sinusiti s 99338544 Completed 200202/20/2011 Calos Valiente MD [address] [place], [place] [address], [address], [facility] 6 13:28:26 Non-toxi c multinod ular goiter 03076819 Active 2007 Calos Valiente MD [address] [place] [address] [place], [address], [facility] 6 13:28:26 Divertic ular disease of colon 906533484 Completed 200810/28/2014 Calos Valiente MD [address] [place], [place] [address], [address], [facility] 6 13:28:26 Hashimot o thyroidi tis 25708836 Active 2004 get tsh 07/2017 Calos Valiente MD [address] [place] [address] [place], [address], [facility] 6 16:46:00 Acute bronchit is 80707948 Completed 200002/20/2011 Calos Valiente MD Replaced by [facility] [place], [address], [facility] 6 13:28:26 Left upper quadrant pain 563012298 Completed 200002/20/2011 Calos Valiente MD [address] [place] [address] [place], [address], [facility] 6 13:28:26 Decrease in height 31642609 Completed 200608/12/2013 Calos Valiente MD [address] [place] [address] [place], [address], [facility] 6 13:28:26 Headache 59215574 Completed 200007/18/2009 Calos Valiente MD [address] [place] [address] [place], [address], [facility] 6 13:28:26 Sprain of ligament of lumbosac ral joint Completed 200210/28/2014 Calos Valiente MD [address] [place] [address] [place], [address], [facility] 6 13:28:26 Carpal tunnel syndrome 88015830 Completed 200007/18/2009 Calos Valiente MD [address] [place] [address] [place], [address], [facility] 6 13:28:26 Hyperthy roidism 04657723 Completed 200610/21/2017 Calos Valiente MD [address] [place] [address] [place], [address], [facility] 8 12:19:41 Contact dermatit is 46947885 Completed 200809/05/2011 Calos Valiente MD [address] [place] [address] [place], [address], [facility] 6 13:28:26 Senile hyperker atosis 010054622 Completed 200809/05/2011 Calos Valiente MD [address] [place] [address] [place], [address], [facility] 6 13:28:26 Shoulder pain 58276902 Completed 200604/06/2013 Calos Valiente MD [address] [place] [address] [place], [address], [facility] 6 13:28:26 Gastro-e sophagea l reflux disease with esophagi tis 749383201 Completed 199910/28/2014 Calos Valiente MD [address] [place] [address] [place], [address], [facility] 6 13:28:26 Clostrid ioides difficil e infectio n 105331616 Completed 200610/28/2014 Calos Valiente MD [address] [place] [address] [place], [address], [facility] 6 13:28:26 Astigmat ism 05312682 Completed 200507/18/2009 Calos Valiente MD [address] [place] [address] [place], [address], [facility] 6 13:28:26 Impacted cerumen 41680311 Completed 200102/20/2011 Calos Valiente MD [address] [place] [address] [place], [address], [facility] 6 13:28:26 Sprain of spinal ligament 242955352 Completed 200007/18/2009 Calos Valiente MD [address] [place] [address] [place], [address], [facility] 6 13:28:26 Conducti ve hearing loss 72596751 Active 2003 Calos Valiente MD [address] [place] [address] [place], [address], [facility] 6 13:28:26 Sprain of ankle 88664133 Completed 200809/05/2011 Calos Valiente MD Replaced by [facility] [place], [address], [facility] 6 13:28:26 Irritabl e bowel syndrome 50076641 Active 2006 [place], [address], [facility] 6 13:28:26 Breathin g painful 29291682 Completed 200207/18/2009 [place], [address], [facility] 6 13:28:26 Adverse reaction to substanc e 099982638 Completed 199907/18/2009 Calos Valiente MD Replaced by [facility] [place], [address], [facility] 6 13:28:26 Injury of lower limb 130049144 Completed 200007/18/2009 [place], [address], [facility] 6 13:28:26 Breast lump 75245726 Completed 200507/18/2009 [place], [address], [facility] 6 13:28:26 Gastroin testinal hemorrha ge 12865803 Completed 200504/06/2013 Calos Valiente MD [address] [place], [place] [address], [address], [facility] 6 13:28:26 Nonvenom ous insect bite of multiple sites 019042414 Completed 200604/06/2013 [place], [address], [facility] 6 13:28:26 Mammogra phy abnormal 423064520 Completed 200409/05/2011 [place], [address], [facility] 6 13:28:26 Common cold 26007973 Completed 200604/06/2013 Calos Valiente MD [address] [place], [place] [address], [address], [facility] 6 13:28:26 Postarti ficial menopaus al syndrome 00156729 Completed 200608/12/2013 Calos Valiente MD [address] [place], [place] [address], [address], [facility] 6 13:28:26 On examinat ion - a rash Completed 200804/06/2013 Calos Valiente MD [address] [place], [place] [address], [address], [facility] 6 13:28:26 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 Calos Valiente MD Replaced by [facility] [place], [address], [facility] 6 13:28:26 Senile osteopor osis 14612432 Completed 200404/06/2013 Calos Valiente MD Replaced by [facility] [place], [address], [facility] 6 13:28:26 Chest pain 94283384 Completed 200804/06/2013 Calos Valiente MD [address] [place], [place] [address], [address], [facility] 6 13:28:26 Osteopor osis 83397110 Active 2004 [place], [address], [facility] 6 13:28:26 Menopaus al symptom 75585728 Completed 200208/12/2013 [place], [address], [facility] 6 13:28:26 Osteoart hritis 937744439 Active 2000 Calos Valiente MD [address] [place], [place] [address], [address], [facility] 6 13:28:27 Solitary cyst of breast 034743308 Completed 200002/20/2011 Calos Valiente MD [address] [place] [address] [place], [address], [facility] 6 13:28:26 External hemorrho ids 14331431 Completed 200709/05/2011 Calos Valiente MD [address] [place], [place] [address], [address], [facility] 6 13:28:26 Problem Notes None recorded. Procedures Surgical History Date Name Laterality Status Provider Name and Address Organization Details Recorded Time 08/13/20 18 Medicare Wellness Visit completed Anna Jaeger LPN [facility] 08/13/2018 15:32:17 11/14/19 18 Tassoni - Colonoscopy completed Tru Roberts MD [address] [place] [address], [address], [facility] 11/14/2017 10:50:24 07/02/20 17 Cerumen Removal - Irrigation/Lavage completed Glory Shi LPN [facility] 07/02/2017 12:00:33 04/22/20 17 Medicare Wellness Visit completed Binta Lam MA [facility] 04/22/2017 11:39:26 05/02/20 16 Cerumen Removal - Irrigation/Lavage completed Cecelia Newell LPN [facility] 05/02/2016 14:24:43 04/19/20 16 Medicare Wellness Visit completed Tammy Grace MA [facility] 04/19/2016 10:18:59 04/18/20 15 Medicare Wellness Visit completed Binta Lam MA [facility] 04/18/2015 11:56:21 03/23/20 15 Cerumen Removal completed Lety Castellon LPN [facility] 03/23/2015 10:27:25 04/15/20 14 Medicare Wellness Visit completed Binta Lam MA [facility] 04/15/2014 15:11:55 08/12/20 13 Cerumen Removal completed Lety Castellon LPN [facility] 08/12/2013 12:22:56 04/06/20 13 Medicare Wellness Visit completed Binta Lam MA [facility] 04/06/2013 11:39:32 10/06/19 13 Cerumen Removal completed Sebastián Syed RN [facility] 10/06/2012 16:43:15 09/02/20 12 Suture/staple Removal completed Irene Kirk LPN [facility] 09/02/2012 11:19:40 08/26/20 12 Excision completed Calos Valiente MD [address] [place] [address], [address], [facility] 08/26/2012 14:18:50 03/27/20 12 Medicare Wellness Visit completed Binta Lam MA [facility] 03/27/2012 11:35:52 02/20/20 12 Cerumen Removal completed Abbie Lal RN [facility] 02/20/2012 15:58:57 08/09/20 11 Cerumen Removal completed Irene Kirk LPN [facility] 08/09/2011 12:13:13 03/07/20 11 Suture/staple Removal completed Abbie Lal RN [facility] 03/07/2011 11:51:06 02/27/20 11 Excision completed Calos Valiente MD [address] [place] [address], [address], [facility] 02/26/2011 10:58:49 02/21/20 11 Medicare Annual Wellness Visit completed Binta Lam MA [facility] 02/20/2011 09:28:23 02/21/20 11 Medicare Risk for Falls Screen completed Calos Valiente MD [address] [place] [address], [address], [facility] 02/20/2011 09:40:31 02/21/20 11 Advanced Care Planning completed Calos Valiente MD [address] [place] [address], [address], [facility] 02/20/2011 09:53:51 01/19/20 11 Cerumen Removal completed Mary Angel NP [address] [place], [address], [facility] 01/18/2011 17:44:54 06/09/20 10 Cerumen Removal completed Lety Castellon [facility] 06/09/2010 15:25:27 03/28/20 10 Corticosteroid Injection completed Calos Valiente MD [address] [place], [address], [facility] 03/28/2010 11:03:57 12/29/19 10 Cerumen Removal completed Zeinab Greene [facility] 12/28/2009 09:50:55 06/01/20 09 Cerumen Removal completed Irene Kirk [facility] 06/01/2009 12:02:59 06/12/20 06 completed Not Available [facility] 08/09/2011 06:05:52 Imaging Results Imaging Date Name Status LastModified by Organiz ation Details LastModified Time 07/31/2018 bone density completed [facility] (Imaging) [address], [place], [address], 08/09/2018 19:45:09 08/25/2018 US, liver completed [facility] (Imaging) [address], [place], [address], 01/26/2019 09:26:11 01/28/2019 MAMMO, screening, tomosynthesis, bilateral, w/ CAD completed [facility] [address] [place] [address], [address], 01/28/2019 20:22:13 01/28/2019 MAMMO, screening completed [email or web address] [place] [address], [address], 02/02/2019 09:08:34 Procedure Notes None recorded. Medical Equipment None Reported. Allergies Allergen ID Allergen Name Allergen Category Reaction Reaction Severity Criticality Documentation Date Start Date Code Code System Note Provider Name and Address Organization Details Recorded Time 82313 Substance with sulfonami de structure and antibacte rial mechanism of action (substanc e) medicatio n Not available Not available Not available 09/09/2010 15738 8003 SNOMED Not Available [facility] 1 06:05:41 Medications Name Sig Start Date [...] Not Available Not Available Not Available Fluvirin 1539-3171 45 mcg (15 mcg x 3)/0.5 mL [...] Updated DateTime 8 154.94 cm 26.5 kg/m2 54168.9 3 g 84 /min 130 mm[Hg] 70 mm[Hg] Glory Colindres [facility] 8 13:50:20 Date Recorded Body height Body mass index (BMI) Body weight Heart rate Systolic blood pressure Diastolic blood pressure Provider Name and Address Organization Details Last Updated DateTime 8 155.58 cm 25.9 kg/m2 69248.7 5 g 82 /min 140 mm[Hg] 78 mm[Hg] [facility] 8 11:07:18 Date Recorded Body height Body mass index (BMI) Body weight Heart rate Respiratory rate Systolic blood pressure Diastolic blood pressure Provider Name and Address Organization Details Last Updated DateTime 8 155.58 cm 25.9 kg/m2 08598.1 5 g 96 /min 20 /min 130 mm[Hg] 60 mm[Hg] Anna Jaeger [facility] 8 15:38:38 Date Recorded Body height Body mass index (BMI) Body weight Heart rate Systolic blood pressure Diastolic blood pressure Provider Name and Address Organization Details Last Updated DateTime 9 155.58 cm 24.9 kg/m2 61510.7 9 g 80 /min 122 mm[Hg] 60 mm[Hg] Doreen santiago, [facility] 9 10:31:03 Date Recorded Body height Body mass index (BMI) Body weight Heart rate Systolic blood pressure Diastolic blood pressure Provider Name and Address Organization Details Last Updated DateTime 9 155.58 cm 24.2 kg/m2 54971.8 5 g 86 /min 138 mm[Hg] 66 mm[Hg] Patricia Mills, [facility] 9 10:46:19 Social History Question Answer Notes LastModified by Organizat ion Details LastModified Time Tobacco Smoking Status Never Smoker Not Available [facility] 08/09/2011 04:53:18 Do You Have An [...] cancer. Medical History Condition Response Thyroid Disease EYE Y Diverticulitis Y GERD Y Colon Polyps Y Irritable Bowel Syndrome Y Osteoporosis Y Gynecological History Statement/Question Response Hysterectomy Y Obstetrics History GPAL:G 0 P 0 0 0 0 Immunizations Vaccine Type Date Status Note Provider Nam e and Address Organization Details Recorded Time Influenza, split virus, trivalent, preservative 9 completed Not Available [facility] 10/10/2019 02:38:54 Influenza, split virus, trivalent, preservative 1 completed Not Available [facility] 10/10/2019 02:31:48 influenza, unspecified formulation 2 completed Not Available [facility] 08/08/2011 05:21:07 influenza, unspecified formulation 5 completed Not Available [facility] 08/08/2011 05:21:29 pneumococcal polysaccharide PPV23 7 completed Not Available [facility] 08/08/2011 05:21:29 influenza, unspecified formulation 7 completed Not Available [facility] 08/08/2011 05:21:55 Td(adult) unspecified formulation 8 completed Not Available [facility] 08/08/2011 05:21:55 influenza, unspecified formulation 8 completed Not Available [facility] 08/08/2011 05:21:55 Influenza, split virus, trivalent, preservative 2 completed Not Available [facility] 10/10/2019 02:33:39 Influenza, split virus, trivalent, PF 3 completed Not Available [facility] 10/10/2019 02:18:57 zoster live 8 completed Not Available [facility] 08/08/2011 05:22:52 Pneumococcal conjugate PCV 13 5 completed Not Available [facility] 10/10/2019 02:28:18 Novel [id number] 0 completed Not Available [facility] 10/10/2019 02:25:07 Influenza, high-dose, trivalent, PF 6 completed Not Available [facility] 10/10/2019 02:21:03 Influenza, split virus, trivalent, PF 4 completed Not Available [facility] 2019 02:10:39 Influenza, high-dose, trivalent, PF 7 completed Not Available [facility] 10/10/2019 02:21:41 Influenza, high-dose, trivalent, PF 5 completed Emmanuelle Perez, RN, BSN [facility] 07/17/2015 12:34:45 Influenza, high-dose, trivalent, PF 8 completed Not Available [facility] 10/10/2019 02:23:03 Influenza, split virus, trivalent, preservative 0 completed Not Available [facility] 10/10/2019 02:27:08 Past Encounters Encounter ID Performer Location Encounter Start Date Encounter Closed Date Diagnosis/Indication Diagnosis SNOMED-CT Code Diagnosis ICD10 Code Diagnosis Note [id number] FP, [facility], OFFICE [address] [place] [address] 08/21/2000 11:45:00 10/13/2008 02:02:29 [id number] FP, [facility], OFFICE 70 [facility] [address] 09/02/2000 14:15:00 10/13/2008 02:02:29 [id number] [facility] [address] [place] [address] 01/11/2001 10:00:00 10/13/2008 02:02:29 [id number] FP, [facility], OFFICE [address] [place] [address] 02/19/2001 16:15:00 10/13/2008 02:02:29 [id number] FP, [facility], OFFICE 70 [facility] [address] 6 02/26/2001 10:30:00 10/13/2008 02:02:29 [id number] FP, [facility], OFFICE [address] [place] [address] 01/02/2001 10:30:00 10/13/2008 02:02:29 [id number] FP, [facility], OFFICE [address] [place] [address] 6 03/28/2001 11:00:00 10/13/2008 02:02:29 [id number] Radiology , [facility] [address] [place] [address] 03/20/2001 14:00:00 10/13/2008 02:02:29 [id number] FP, [facility], OFFICE [address] [place] [address] 6 07/23/2001 11:45:00 10/13/2008 02:02:29 [id number] FP, [facility], OFFICE [address] [place] [address] 6 09/26/2001 14:45:00 10/13/2008 02:02:29 [id number] FP, [facility], OFFICE [address] [place] [address] 6 11/21/2001 15:30:00 10/13/2008 02:02:29 [id number] FP, [facility], OFFICE [address] [place] [address] 6 12/29/2001 09:45:00 10/13/2008 02:02:29 [id number] FP, [facility], OFFICE [address] [place] [address] 6 03/23/2002 10:28:26 10/13/2008 02:02:29 [id number] FP [facility], OFFICE [address] [place] [address] 6 04/06/2002 10:46:02 10/13/2008 02:02:29 [id number] FP, [facility], OFFICE [address] [place], [place] [address] 04/15/2002 09:55:33 10/13/2008 02:02:29 [id number] Radiology , [facility] [address] [place] [address] 04/20/2002 12:03:48 10/13/2008 02:02:29 [id number] LAB - [address] [place] [address] 04/24/2002 11:52:43 10/13/2008 02:02:29 [id number] FP, [facility], OFFICE [address] [facility] [place] [address] 05/08/2002 10:10:02 10/13/2008 02:02:29 [id number] FP, [facility], OFFICE [address] [facility] [place] [address] 06/02/2002 10:02:44 10/13/2008 02:02:29 [id number] FP, [facility], OFFICE [address] [facility] [place] [address] 6 09/03/2002 15:26:30 10/13/2008 02:02:29 [id number] FP, [facility], OFFICE [address] [facility] [place] [address] 10/20/2002 15:09:26 10/13/2008 02:02:29 [id number] FP, [facility], OFFICE [address] [facility] [place] [address] 6 11/18/2002 15:24:24 10/13/2008 02:02:29 [id number] FP, [facility], OFFICE [address] [facility] [address] 02/17/2003 11:13:26 10/13/2008 02:02:29 [id number] LAB - [facility] [address] [place] [address] 6 04/01/2003 09:02:04 10/13/2008 02:02:29 [id number] FP, [facility], OFFICE [address] [facility] [address] 03/31/2003 10:18:52 10/13/2008 02:02:29 [id number] Radiology , [facility] [address] [place] [address] 04/06/2003 13:30:30 10/13/2008 02:02:29 [id number] LAB - [address] [place] [address] 04/21/2003 11:18:36 10/13/2008 02:02:29 [id number] Radiology , [facility] 70 [facility] [place] [address] 6 04/28/2003 09:22:40 10/13/2008 02:02:29 [id number] [facility], OFFICE [address] [facility] [place] [address] 09/07/2003 09:47:15 09/07/2003 12:29:27 [id number] FP [facility], OFFICE [address] [facility] [place] [address] 01/24/2004 14:57:53 01/24/2004 17:30:12 [id number] FP [facility], OFFICE [address] [facility] [place] [address] 6 04/05/2004 10:26:08 04/05/2004 12:21:18 [id number] Radiology , [facility] [address] [place] [address] 04/12/2004 11:02:10 04/13/2004 09:25:21 [id number] FP [facility], OFFICE [address] [facility] [place] [address] 04/17/2004 15:30:13 04/17/2004 16:37:04 [id number] LAB - [address] [place] [address] 04/24/2004 15:03:32 04/24/2004 15:06:17 [id number] FP [facility], OFFICE [address] [facility] [place] [address] 05/16/2004 14:21:17 05/16/2004 15:36:35 [id number] Physical Therapy, [facility] [address] [place] [address] 05/22/2004 14:17:10 05/22/2004 15:34:02 [id number] FP [facility], OFFICE [address] [facility] [place] [address] 06/12/2004 14:03:54 06/13/2004 08:44:24 [id number] FP, [facility], OFFICE [address] [place] [address] 11/28/2004 10:48:03 11/28/2004 14:51:49 [id number] Radiology , [facility] [address] [place] [address] 04/02/2005 11:29:30 04/03/2005 08:57:38 [id number] [facility], OFFICE [address] [place] [address] 04/09/2005 10:33:55 04/09/2005 13:48:49 [id number] Radiology , [facility] [address] [place] [address] 04/17/2005 10:42:51 10/13/2008 02:02:29 [id number] Radiology , [facility] [address] [place] [address] 05/08/2005 16:07:24 10/13/2008 02:02:29 [id number] [facility], OFFICE [address] [place] [address] 05/10/2005 15:23:51 10/13/2008 02:02:29 [id number] LAB - [address] [address] 07/04/2005 09:43:47 07/04/2005 09:44:04 [id number] [facility], OFFICE [address] [place] [address] 08/01/2005 16:31:52 10/13/2008 02:02:29 [id number] Eye Care, [address] [address] 03/18/2006 14:20:49 10/13/2008 02:02:29 [id number] , [facility], OFFICE [address] [place] [address] 03/28/2006 14:21:50 03/28/2006 16:26:32 [id number] , [facility], OFFICE [address] [place] [address] 04/11/2006 08:54:06 04/11/2006 11:24:55 [id number] , [facility], OFFICE [address] [place] [address] 6 04/15/2006 14:57:06 04/15/2006 16:14:28 [id number] [facility], [address] [address] 06/12/2006 08:17:24 06/13/2006 07:25:18 [id number] [facility], OFFICE [address] [facility] [place] 6 06/27/2006 15:08:52 06/27/2006 16:35:06 [id number] [facility], OFFICE [address] [facility] [address] 11/20/2006 11:08:58 11/21/2006 07:58:56 [id number] [facility], OFFICE 70 [facility] [place] [address] 12/24/2006 11:00:59 12/25/2006 11:23:21 [id number] Physical Therapy, [facility] Paul [facility] [place] [address] 12/27/2006 15:53:15 12/30/2006 17:04:09 [id number] Physical Therapy, [facility] 70 [facility] [place] [address] 01/13/2007 10:55:41 01/13/2007 16:17:17 [id number] Physical Therapy, [address] [place] [address] 01/27/2007 14:28:30 01/28/2007 09:18:42 [id number] LAB - [address] [place] [facility] [place] [address] 01/27/2007 10:43:06 01/27/2007 10:43:26 [id number] Physical Therapy, [facility] [place] [address] 02/10/2007 10:22:04 02/10/2007 15:19:14 [id number] Physical Therapy, [facility] [place] [address] 02/19/2007 11:53:15 02/19/2007 14:13:02 [id number] [facility], OFFICE 70 [facility] [place] [address] 02/20/2007 11:06:26 02/20/2007 15:54:33 [id number] Radiology , [facility] 70 [facility] [place] [address] 02/20/2007 11:31:53 02/21/2007 09:16:35 [id number] [facility], OFFICE 70 [facility] [place] [address] 03/01/2007 10:28:47 03/01/2007 13:23:12 [id number] FP, [facility], OFFICE [address] [facility] [place] [address] 04/02/2007 15:01:36 04/03/2007 08:21:50 [id number] FP, [facility], OFFICE [address] [facility] [place] [address] 04/14/2007 15:11:02 04/14/2007 16:37:50 [id number] FP, [facility], OFFICE [address] [facility] [place] [address] 6 06/09/2007 15:04:07 06/13/2007 12:49:41 [id number] Radiology , [facility] 70 [facility] [place] [address] 06/26/2007 10:13:18 06/27/2007 09:20:06 [id number] FP, [facility], OFFICE [address] [facility] [place] [address] 07/30/2007 15:24:07 10/13/2008 02:02:29 [id number] FP, [facility], OFFICE [address] [facility] [place] [address] 09/20/2007 09:17:48 10/13/2008 02:02:29 [id number] FP, [facility], OFFICE [address] [facility] [place] [address] 12/09/2007 15:04:32 10/13/2008 02:02:29 [id number] FP, [facility], OFFICE [address] [facility] [place] [address] 01/30/2008 11:39:32 10/13/2008 02:02:29 [id number] FP, [facility], OFFICE [address] [facility] [place] [address] 04/13/2008 15:18:25 10/13/2008 02:02:29 [id number] FP, [facility], OFFICE [address] [facility] [place] [address] 07/14/2008 16:21:35 07/14/2008 16:21:40 [id number] FP, [facility], OFFICE [address] [facility] [place] [address] 6 08/02/2008 15:47:27 10/13/2008 02:02:29 [id number] FP, [facility], OFFICE [address] [facility] [place] [address] 10/06/2008 14:26:37 10/13/2008 02:02:29 [id number] FP, [facility], OFFICE 70 [facility] [place] [address] 11/18/2008 14:26:17 11/24/2008 11:20:41 [id number] Radiology , [facility] 70 [place] [address] 6 11/18/2008 14:43:54 11/18/2008 17:10:40 [id number] , [facility], OFFICE 70 [facility] [place] [address] 12/15/2008 12:05:15 12/17/2008 12:42:38 [id number] , [facility], OFFICE [address] [facility] [address] 12/23/2008 15:34:50 12/27/2008 14:06:35 [id number] , [facility], OFFICE [address] [place] [address] 02/09/2009 14:28:33 02/11/2009 15:21:27 [id number] [facility], OFFICE [address] [place] [address] 04/11/2009 15:07:16 04/13/2009 11:16:04 [id number] , [facility], OFFICE [address] [place] [address] 05/04/2009 15:54:44 05/05/2009 14:57:03 [id number] [facility], OFFICE [address] [place] [address] 06/01/2009 11:10:23 06/06/2009 11:28:11 [id number] LAB - [facility] [address] [place] [address] 6 04/11/2009 15:59:01 04/11/2009 15:59:16 [id number] [facility] , [facility] [address] [place] [address] 6 07/25/2009 11:08:41 07/27/2009 11:30:05 [id number] [facility], OFFICE [address] [place] [address] 6 09/01/2009 11:05:17 09/05/2009 09:52:21 [id number] [facility], OFFICE [address] [place] [address] 10/06/2009 11:03:54 10/07/2009 12:30:46 [id number] [facility], OFFICE [address] [place] [address] 6 11/04/2009 15:37:36 11/07/2009 14:10:42 [id number] [facility], OFFICE 70 [place] 6 12/13/2009 15:26:07 12/15/2009 10:01:44 [id number] FRANKO [facility], OFFICE 70 [place] 6 12/28/2009 09:09:33 12/30/2009 09:59:30 [id number] [facility], OFFICE 70 [place] 6 01/10/2010 10:54:36 01/10/2010 15:02:05 [id number] [facility], OFFICE 70 [place] 6 03/28/2010 10:12:46 03/31/2010 08:59:43 [id number] Radiology , [facility] [address] [place] [address] 03/28/2010 11:03:26 03/29/2010 12:23:35 [id number] [facility], OFFICE 70 [place] 6 04/17/2010 09:46:06 04/18/2010 09:19:57 [id number] [facility], OFFICE 70 [place] 6 06/09/2010 14:40:41 06/12/2010 09:51:34 [id number] FRANKO [facility], OFFICE [address] [place] [address] 09/09/2010 12:21:55 09/13/2010 12:07:02 [id number] [facility], OFFICE [address] [place] [address] 6 01/18/2011 16:27:53 01/22/2011 08:37:10 [id number] [facility], OFFICE 70 [place] 6 02/07/2011 15:45:56 02/09/2011 10:42:53 [id number] FRANKO [facility], OFFICE 70 [place] 6 02/20/2011 09:12:18 02/22/2011 09:23:32 [id number] FRANKO [facility], OFFICE 70 [place] 6 02/26/2011 10:29:49 02/27/2011 14:00:13 [id number] FP, [facility], OFFICE [address] [place], [place] 03/07/2011 10:28:05 03/09/2011 08:40:46 [id number] FP, [facility], OFFICE [address] [facility], [place] Paul[address] 6 03/28/2011 14:53:11 03/29/2011 10:06:36 [id number] FP, [facility], OFFICE [address] [place], [place] 05/13/2011 09:40:13 05/13/2011 10:11:20 [id number] FP, [facility], OFFICE [address] [place], [place] Paul[address] 05/23/2011 14:58:08 05/23/2011 15:28:50 [id number] FP, [facility], OFFICE [address] [facility] [place], [place] [address] 05/30/2011 15:12:19 05/30/2011 15:39:54 [id number] FP, [facility], OFFICE [address] [facility] [place], [place] [address] 06/15/2011 09:27:02 06/18/2011 11:58:32 [id number] Radiology , [facility] [address] [place] [address] 08/09/2011 10:57:20 08/10/2011 12:04:08 [id number] FP, [facility], OFFICE [address] [facility] [place] [address] 08/09/2011 11:24:36 08/10/2011 08:59:25 [id number] FP, [facility], OFFICE [address] [facility] [place] [address] 6 09/05/2011 15:47:18 09/07/2011 09:03:03 [id number] FP, [facility], OFFICE [address] [facility] [place], [place] [address] 12/24/2011 16:10:22 12/24/2011 16:41:25 [id number] FP, [facility], OFFICE [address] [place], [place] [address] 01/02/2012 15:17:18 01/02/2012 16:01:26 [id number] FP, [facility], OFFICE [address] [facility], [place] Paul[address] 6 02/20/2012 11:47:36 02/21/2012 10:06:54 [id number] FRANKO [facility], OFFICE [address] [place] [address] 02/28/2012 15:26:37 02/29/2012 08:24:19 [id number] FRANKO, [facility], OFFICE [address] [place] [address] 6 03/27/2012 11:27:30 03/27/2012 11:58:47 [id number] , [facility], OFFICE [address] [place] [address] 05/22/2012 16:00:31 05/23/2012 10:13:25 [id number] FRANKO [facility], OFFICE [address] [place] [address] 6 05/27/2012 16:24:54 05/28/2012 12:48:23 [id number] MD FRANKO Milian [facility], OFFICE [address] [place] [address] 08/26/2012 13:46:36 08/26/2012 14:18:22 [id number] Claudette ABDUL [facility], OFFICE [address] [place] [address] 6 09/02/2012 10:43:50 09/03/2012 14:05:42 [id number] SIMON Barrera, [facility], OFFICE [address] [place] [address] 6 10/06/2012 15:56:03 10/06/2012 16:37:30 [id number] Claudette ABDUL [facility], OFFICE [address] [place] [address] 6 10/15/2012 09:52:23 10/16/2012 12:54:52 [id number] MD FRANKO Sotelo [facility], OFFICE [address] [place] [address] 10/18/2012 09:49:09 10/20/2012 13:17:23 [id number] Claudette ABDUL [facility], OFFICE [address] [place] [address] 11/05/2012 10:46:36 11/06/2012 11:24:05 [id number] FRANKO [facility], OFFICE [address] [place] [address] 6 04/06/2013 11:19:58 04/07/2013 13:17:17 [id number] [facility], OFFICE [address] [place] [address] 06/10/2013 06:21:35 06/10/2013 16:25:35 Influenza vaccine needed [id number] 398 [id number] Claudette Franco [facility], OFFICE [address] [place] [address] 08/12/2013 11:54:44 08/13/2013 10:15:52 Impacted cerumen [id number] successful IRRIGATION DONE, f/u prn, [id number] Binta Lam MA , [facility], OFFICE [address] [place] [address] 08/19/2013 16:26:04 08/24/2013 10:18:40 Bursitis of shoulder [id number] Patient with clinical presentati on of left [...] contact the clinic if her symptoms worsen. [id number] [facility] OFFICE [address] [place] [address] 10/07/2013 10:12:00 10/08/2013 09:45:51 Contusion of chest [id number] tylenol, heat or ice, rest, reassuranc e [id number] Claudette [facility], OFFICE [address] [place] [address] 12/28/2013 14:42:12 12/29/2013 09:52:41 Irritable bowel syndrome [id number] I still think she has mild IBS. avoid possible offending foods like fatty foods, tomatos products, dairy. call if not settling down. [id number] eJricho Laureano [facility], OFFICE [address] [place] [address] 03/29/2014 13:59:52 03/30/2014 16:21:31 Dysuria [id number] resolved. never sure she had UTI- as there was never a urinanalys is at first before med. in hospital-h ad microscpic blood in urine but culture was negative.a nd repeat u/a neg she couldhave had a viral infection or partially treated uti. plan stop ceftin today. and follow I review hosptial labs and H and P. [id number] Kathie Rakesh schmitt , [facility], OFFICE [address] [place] [address] 04/15/2014 14:58:21 04/16/2014 09:36:29 Adult health examination [id number] see Risk Assessment and Lifestyle Change Counseling section above Counseling [id number] Osteoporosis [id number] se mark Murray. urge weight bearing exericses Gastroesop hageal reflux disease [id number] controlled nexium otc [id number] CANDY Otto , [facility], OFFICE [address] [place] [address] 06/29/2014 10:48:45 06/30/2014 08:34:30 Strain of muscle of face 437256104 probable muscular strain of left side of face, advised to use ice to affected area several times a day, ibuprofen 200 mg 3 tablets 3 times a day and if no improvemen t in the next 5-7 days return to office for further reevaluati on. [id number] Calos Valiente MD , [facility], OFFICE [address] [place] [address] 10/27/2014 11:12:18 11/04/2014 12:55:15 Urinary tract infectious disease 59493780 recurrent due to postmenopa usal- not present now- could try to treat self next time gets typical sx. If not better, call . could consider estrogen cream. no sx now rx given, if needs in future. [id number] Neeta Franks , [facility], OFFICE [address] [place] [address] 01/27/2015 12:12:28 02/01/2015 15:19:53 Acute bronchitis 91413102 rest, hot liquids, call if worse otc cough med and tylenol [id number] Jules Cortés MD , [facility], OFFICE [address] [place] [address] 03/12/2015 11:30:34 03/12/2015 12:01:48 Hand joint pain [id number] [id number] , [facility], OFFICE [address] [place] [address] 03/23/2015 09:46:48 04/01/2015 14:41:46 Synovial cyst 908764195 Otalgia 99448799 no sour ce found- follow Malignant melanoma of eye 957928945 going to [facility] tomorrow Impacted cerumen 49186081 successful IRRIGATION DONE, f/u prn, [id number] Lex Whelan MD , [facility], OFFICE [address] [place] [address] 04/08/2015 16:13:28 04/08/2015 17:32:38 Carpal tunnel syndrome 56824663 [id number] Binta Lam MA , [facility], OFFICE [address] [place] [address] 04/18/2015 11:36:54 04/18/2015 12:27:32 Adult health examination [id number] see Risk Assessment and Lifestyle Change Counseling section above Counseling [id number] Active or passive immunization 627363698 Malignant melanoma of eye 482863087 [facility] result abnormal 500278714 there is a small nodule found on CT scan. [facility] wants repeat CT scan in three months Senile hyperkeratosis 561730312 on neck ret for removal md at [facility] wants it removed.It isn't malignant. [id number] Neeta Franks , [facility], OFFICE [address] [place] [address] 05/18/2015 12:10:39 05/19/2015 12:07:05 Senile hyperkeratosis 470007350 cryo and curettage done [id number] Viral Baig MD , [facility], OFFICE [address] [place] [address] 08/28/2015 10:00:58 08/28/2015 10:25:37 Diverticulitis of colon 488201593 K57.32 [id number] Calos Valiente MD , [facility], [address] [place] [address] 08/31/2015 13:20:53 08/31/2015 14:10:01 Left lower quadrant pain [id number] R10.32 possible mild diverticul tis. add flagyll. call next week with progress note. couldn't giveadequa te amount of urine. if not better in 2 days- get urine dip and micro and u/c to r/o stones and infection [id number] Neetajared Franks , [facility], [address] [place] [address] 10/12/2015 12:07:23 10/13/2015 13:48:26 Irritable bowel syndrome 08685694 K58.9 I still think she has mild IBS. try colace for constipati on. cont culturelee . and veggies. [id number] Calos Valiente MD , [facility], [address] [place] [address] 04/19/2016 10:14:44 04/19/2016 11:01:52 Adult health examination [id number] Z00.00 see Risk Assessment and Lifestyle Change Counseling section above Counseling [id number] Z71 .9 Gastroesop hageal reflux disease 263007315 K21.9 controlled with omeprazole Osteoporosis 66800228 M8 1.[address] Murray. urge weight bearing exericises Malignant melanoma of eye 594427070 C69.90 being treated at [facility] needs lft's tested for melanoma Irritable bowel syndrome 46013463 K58.9 controled with current diet [id number] Calos Valiente MD , [facility], [address] [place] [address] 05/02/2016 13:43:07 05/08/2016 13:54:13 Shoulder pain 98461422 M25.512 maybe mild impingemen t syndrome - getting better on own plan try nsaid. ret prn Impacted cerumen 9595492 6 H61.23 successful IRRIGATION DONE, f/u prn, [id number] Calos Valiente MD , [facility], [address] [place] [address] 07/04/2016 11:10:41 07/04/2016 11:44:33 Active or passive immunization [id number] Z23 Chest wall pain 05733886 6 R07.89 soft tissue bruise probably from tight bra- recommend larger bra until loses weight [id number] , [facility], [address] [place] [address] 09/25/2016 12:13:03 09/25/2016 12:59:28 Irritable bowel syndrome 25613116 K58.9 try eliminatin g fructans and galacto-ol iosacchari dse no wheat , barley oats. 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 follow [id number] Calos Valiente MD , [facility], [address] [place] [address] 04/22/2017 11:35:56 04/22/2017 12:24:28 Adult health examination 605724254 Z00.00 see Risk Assessment and Lifestyle Change Counseling section above Counseling 623149584 Z71 .9 Irritable bowel syndrome 12938160 K58.9 better with certain dietary restrictio ns Malignant melanoma of eye 597349161 C69.90 see opth in [place] Osteoporosis 76146041 M8 1.[address] Murray. urge weight bearing exericises [id number] Lex Whelan MD , [facility], [address] [place] [address] 06/04/2017 16:35:56 06/04/2017 17:17:19 Hordeolum externum of upper eyelid 086122774 H00.871 [id number] Yazmin Pedraza LPN , [facility], [address] [place] [address] 06/06/2017 16:15:53 06/07/2017 08:24:28 Active or passive immunization 766515933 Z23 [id number] Calos Valiente MD , [facility], [address] [place] [address] 07/02/2017 11:12:18 07/03/2017 10:13:51 Irritable bowel syndrome 48372472 K58.9 tried various dietary restrictio n and fiber supplement s, TTG neg. 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 on probiotics - get GI input besides due for another colonoscop y Internal hemorrhoids 904 62885 K64.8 continue proctozone [id number] Calos Valiente MD , [facility], [address] [place] [address] 10/21/2017 11:42:26 10/21/2017 12:36:17 Irritable bowel syndrome 36664073 K58.9 quiet now Malignant melanoma of eye 908125497 C69.90 see opth in [place] Osteoporosis 38484931 M8 1.[address] Estrada Gastroesop hageal reflux disease 235455718 K21.9 PPI qd but take one day off a week [id number] Tru Roberts MD [facility], [facility] [address] [place] [address] 11/14/2017 08:53:54 11/14/2017 13:51:26 [id number] Sawyer Estrada MD Endocrino log, [address] [address] 04/30/2018 14:51:37 04/30/2018 16:15:53 Osteoporosis 60790587 M81.0 -reassess bone density test -dairy 3 times daily -practice balance by dancing -ca 600 +d tab, 1/2 tab am and 1/2 tab pm -vit d 1000units tabs, 2 tab winter, 1 summer Vitamin D deficiency 347 78694 E55.9 [id number] BOOM Steele , [facility], [address] [place] [address] 07/02/2018 13:41:37 07/02/2018 14:24:34 Active or passive immunization 506885672 Z23 Strain of muscle and/or tendon of lower leg 327890783 S86.911A ankle strain- rest, rom exercises Injury of finger 4987994 8 S69.92XA strst, rom exercise- f/u if not improving in coming 1-2 wkseain- [id number] Sawyer Estrada MD Endocrino logy, [facility] [address] [place] [address] 07/16/2018 10:45:31 07/16/2018 11:47:48 Osteoporosis 82117300 M81.0 -reassess bone density test -dairy 3 times daily -practice balance by dancing -limit calcium to 250mg via supplement -vit d 1000units tabs, 2 tab winter, 1 summer Vitamin D deficiency 347 71590 E55.9 [id number] Ty Sams MD , [facility], [address] [place] [address] 08/13/2018 15:28:45 08/13/2018 16:22:01 Adult health examination 845403649 Z00.00 see Risk Assessment and Lifestyle Change Counseling section above Counseling 270922596 Z71 .9 Depression screening 171 918012 Z13.89 depression screening tool administer ed, entered into emr, scored and discussed, time greater than 7.5 minutes Solitary n odule of lung 595389201 R91.1 f/u ct with no change out far enough to consider benign Malignant melanoma of eye 661209774 C69.[address] [facility] Gastroesop hageal reflux disease 182329914 K21.9 continue pantaprazo le Pre-surger y evaluation 561313840 Z01.818 clear for eye surgery [id number] Sawyer Estrada MD Endocrino logy, [facility] [address] [place] [address] 01/21/2019 10:17:59 01/21/2019 11:16:38 Osteoporosis 32892709 M81.0 -dairy or dairy replacemen t 2 times daily-spin ach-practi ce balance by dancing - no calcium supplement s-vit d 1000units tabs, 2 tab winter, 1 summer -labs, if normal, ask me to order to order prolia, then authorize prolia to be sent to [facility] for administra tion, then book appointmen t with endocrine nurse to administer every 6mo Vitamin D deficiency 347 52880 E55.9 [id number] Sawyer Estrada MD Endocrino logy, [facility] [address] [place] [address] 07/29/2019 10:25:03 07/29/2019 13:23:12 Osteoporosis 54662925 M81.0 -add risedronat e 35 mg by mouth once weekly with a full glass of water on an empty stomach while sitting or standing; do not lie down after taking risedronat e for at least 1h -soy milk or other replacemen t dairy once daily, almonds-ad d kale-aim for calcium 1000mg via diet then recheck urine calcium 24h Vitamin D deficiency 347 28348 E55.9 -vitamin d 1000units by mouth once daily Health Concerns Section Related Observation LastModified by Organization Detai ls LastModified Time None Recorded Concern Status LastModified by Organization Details LastModified Time None Recorded Advance Directives Directive N: Payers Encounter Date Sequence Insurance Name Policy Number Policy Tamayo Covered Member ID Tamayo Member ID Guarantor Name 07/02/2018 1 MEDICARE -SC: [employer] Irene Porter [id number] Irene Porter 07/02/2018 2 [employer] HE[employer] OPTIONS - PLAN T2 (INDEMNITY) Irene Porter [id number] Irene Porter 07/16/2018 1 MEDICARE B-[place]: [facility] Irene Porter [id number] Irene Porter 07/16/2018 2 [employer] HE[employer]CARE OPTIONS - PLAN T2 (INDEMNITY) Irene Porter [id number] Irene Porter 08/13/2018 1 MEDICARE [facility]: [facility] Irene Porter [id number] Irene Porter 08/13/2018 2 [employer] HE[employer] OPTIONS - PLAN T2 (INDEMNITY) Irene Porter [id number] Irene Portre 01/21/2019 1 MEDICARE B-[place]: [facility] Irene Porter [id number] Irene Porter 01/21/2019 2 [employer] HE[employer]CARE OPTIONS - PLAN T2 (INDEMNITY) Irene Porter [id number] Irene Porter 07/29/2019 1 [place]: [facility] Irene Porter [id number] Irene Porter 07/29/2019 2 [employer] HE[employer]CARE OPTIONS - PLAN T2 (INDEMNITY) Irene Aikena [id number] Irene Porter Notes Date Note Type Note Provider Name and Address Organization Details Recorded Time 07/02/2018 text/html AFTER GARDENING 4 days ago, R foot pain and left 3rd finger had been hurting x > month. no swelling, Irene Sams, [facility] [address] [place] [address], [phone], [facility] 07/05/2018 14:22:41 07/16/2018 text/html 77yo woman, with [...] return as needed. she Sawyer Estrada MD [address] [place] [address], [phone], [facility] 07/16/2018 11:51:02 08/13/2018 text/html Physical Exam/FemaleReported bypatient.PHAPatient is here for a Wellness Visit. She describes her health status as fair. Patient's health is worse than last year.Notes:being treated for melanoma right eye at [facility] and [facility]Ar-is scheduled for surgery nd needs [...] milk- IBS is better Ty Sams MD [address] [place] [address], [phone], [facility] 08/21/2018 15:29:01 01/21/2019 text/html 78yo woman, with [...] no bone breaks lately Sawyer Estrada MD [address] [place] [address], [phone], [facility] 01/21/2019 10:59:03 07/29/2019 text/html 78yo woman, with [...] 600mg calcium once daily Sawyer Estrada MD [address] [place] [address], [phone], [facility] 07/29/2019 11:14:10 OBGyn Episode No OBEpisode recorded.
--- OUTSIDE RECORDS SUMMARY | 2025-01-05 16:42 | XMS_ITS | Patient Health Record ---
Author Organization [facility] Address [address] [place] [address] Care Team Providers Care Saw Boss Name Role Phone Anjelica Clarke MD Primary Care Provider Frank Mccoy Unavailable [phone] Allergies Allergen (clinical drug ingredient) Drug/Non Drug [...] Status Risk Notes Problem Irritable bowel syndrome (06905937) Irritable bowel syndrome (K58.9) Active confirmed Problem 362030908 Gastroesophageal reflux disease, esophagitis presence not specified (K21.9) Active confirmed Problem Hiatal hernia (05336559) Hiatal hernia (K44.9) Active confirmed Problem 06542366 Constipation, unspecified constipation type (K59.00) Active confirmed Problem Gastroesophageal reflux disease (891143205) GERD (gastroesophageal reflux disease) (K21.9) Active confirmed Problem 85445872414682428 Abnormal gallbladder ultrasound (R93.2) Active confirmed Problem 587187639 Left lower quadrant abdominal pain (R10.32) Active confirmed Plan Of Treatment Future Test Test Name Order Date UPPER GI ENDOSCOPY 04/26/2020 Insurance Providers Payer Name Payer Address Payer Phone Subscriber Number Group Number Insured Name Patient Relationship to Insured Coverage Start Date Coverage End Date MEDICARE OF [place] [address] [facility] [place] [id number] [id number] ROCIO HENSON Self - patient is the insured [facility] SUPPLEMENTAL PLAN [address] [place] [address] [phone] [id number] ROCIO HENSON Self - patient is the insured Medical (General) History Medical History History ICD Code Denies [place],DM,CVA,Lung disease,renal dise ase She reports three previous c olonoscopies with the [facility]'s--she reports a hx of colon [...] any sign of malignancy Partial thyroidectomy at [facility] in [facility] 2021 for benign lesion
--- OUTSIDE RECORDS SUMMARY | 2025-01-05 16:42 | XMS_ITS ---
Author Organization [facility] Address [address] [place] [address] Care Team Providers Care Log Cutter Name Role Phone Anjelica Clarke MD Primary Care Provider Frank Mccoy [phone] Allergies Allergen (clinical drug ingredient) Drug/Non Drug [...] 12/04/2023 Encounters Encounter Location Date Provider Diagnosis [facility] [address] [place] [address] 12/04/2023 Frank Avila Irritable bowel syndrome K58.9 [...] Notes * ROCIO HENSONDOB:1940 (83 yo F)Acc No.[id number]:12/04/2023 Progress Notes Patient:?ROCIO HENSON Provider:?Frank Avila MD :1940???Age:83 Y???Sex:Female D ate:12/04/2023 Address:[address] [place] [address] [id number] Pcp:Anjelica Clarke MD Subjective: * Chief Complaints: [...] any sign of malignancy Partial thyroidectomy at [facility] in Fall 2021 for benign lesion * [...] as well.?? * Procedure Codes:?1036F TOBAC CO NON-[id number] BP SCR NOT PRFRM REC REASON NOS * Preventive Medicine:? ??Urinary Incontinence:?Urinary Incontinence?Assessment:?Absent,?Plan of care documented:?No, reason not specified.? * Follow Up:?prn * * Sign off status: Completed true * Provider:?Frank Avila MD Date:? 024 Generated for Juan Ramon taveras/Morro/Dlsmitting on:?01/05/2025 04:42 PM EDT History and Physical Notes * [...]
--- OUTSIDE RECORDS SUMMARY | 2025-01-05 16:42 | XMS_ITS ---
Author Organization [facility] Address [address] [place] [address] Care Team Providers Care Draw Bench Operator Name Role Phone Anjelica Clarke MD Primary Care Provider Frank Mccoy [phone] Encounters Encounter Location Date Provider Diagnosis [facility] [address] [place] [address] 08/06/2023 Frank Avila Plan Of Treatment No Information Progress Notes * ROCIO HENSONDOB:1940 (82 yo F)Acc No.[id number]:08/06/2023 Patient:?ROCIO HENSON :1940???Age:82 Y???Sex:Female [address] [facility] [place], [address] * true * Date:? Generated for Printi nitin/Morro/eTransmitting on:?01/05/2025 04:42 PM EDT
--- OUTSIDE RECORDS SUMMARY | 2025-01-05 16:43 | XMS_ITS ---
Author Organization [facility] Address [address] [place] [address] Care Team Providers Care Chicken Raiser Name Role Phone Anjelica Clarke MD Primary Care Provider Frank Mccoy [phone] REASON FOR VISIT medication wrong Encounters Encounter Location Date Provider Diagnosis [facility] [address] [place] [address] 12/05/2023 Frank Avila Constipation, unspec ified constipation [...] Progress Notes * SIXTOROCIODOB:1940 (83 yo F)Acc No.[id number]:12/05/2023 Patient:?ROCIO HENSON :1940???Age:83 Y???Sex:Female [facility] [place], [address] * Refills? Stop Probiotic Capsule, -, Orally, [...] * Date:? Generated for Juan Ramon taveras/Morro/Yovanyitting on:?01/05/2025 04:42 PM EDT
== END 2025-01-05 13:38 | disposition home or self-care (01) ==
LOC: HO.HOSX 13:37
DX: M79.641 Pain in right hand (principal); M18.11 Unilateral primary osteoarthritis of first carpometacarpal joint, right hand
CPT/HCPCS: 20550; 73130; 99202; J1100; J2003

== ENCOUNTER 2025-01-05 13:57 | Outpatient (AMB) | payer MEDICARE, SELFPAY ==
[2025-01-05 14:02] VITALS: BMI 25.1
--- NOTE | 2025-01-05 14:02 | A.OFFVIS_ITS ---
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 Patient reports that she injured her right hand middle finger a few months ago while bringing groceries into the house. She has pain in the middle finger and at the base of the middle finger she feels a lump that is tender to the touch .She feels that the finger is very stiff. The finger pain is worse at night but the stiffness is worse in the morning. She also notes that she has a small palpable mass on the left pip of the carloz finger. This is a soft mass that is tender to the touch. 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 Patient reports that she injured her right hand middle finger a few months ago while bringing groceries into the house. She has pain in the middle finger and at the base of the middle finger she feels a lump that is tender to the touch .She feels that the finger is very stiff. The finger pain is worse at night but the stiffness is worse in the morning. She also notes that she has a small palpable mass on the left pip of the carloz finger. This is a soft mass that is tender to the touch. it has increased in size over the last few months FOR[facility] Medical History Idiopathic hypercalciuria Vitamin D deficiency Ingrown toenail of right foot Hip fracture, right Multinodular goiter Osteoporosis Melanoma, choroid Surgical History History of lobectomy of thyroid Hx of cholecystectomy H/O colonoscopy Family History Father No problems noted. Mother No problems noted. Social History Housing: House Alcohol intake: never Patient Tobacco Use Status: Never used Tobacco e-Cigarette/Vaping Use: Never Used Second Hand Smoke Exposure: No Current occupational status: retired Cognitive needs: No Hearing needs: No Vision needs: Yes Review of Systems Const All systems reviewed & are unremarkable except as noted in HPI and below Physical Exam Vital Signs: BMI result Body Mass Index 25.1 Extrem Other: Patient is alert, oriented, and in no acute distress. Neuro: Normal sensation of the tips of all digits of the right hand at this time Vascular: Cap refill brisk Pain: Significant tenderness to palpation of the A1 héctor of the right middle finger Pain with range of motion of the right middle finger ROM: Patient was able to make a closed fist and extend all digits of the right hand fully, no visible or palpable locking or catching in the office today Skin: No lacerations or abrasions. General: No ecchymosis, erythema, or evidence of infection. Psych: Appears grossly normal Affect normal Attitude cooperative Office Procedures AMB Tendon Injection Tendon Injection [id number] Tendon Sheath Injection All charges added?: Procedure code (CPT) selection complete Assessment & Plan Assessment & Plan (1) Other synovitis and tenosynovitis, right hand: Code(s): M65.841 - Other synovitis and tenosynovitis, right hand Category: Medical Plan 1. Pre trigger tenosynovitis of right middle finger Treatment options discussed with the patient, and she would like to proceed with steroid injection The risks and benefits of a steroid injection including but not limited to risk of damage to blood vessels, nerves, tendons, infection, skin bleaching, failure to improve symptoms, increased pain, and possible need for further injections or other intervention were discussed with the patient and the patient wishes to proceed with the steroid injection. Once consent was obtained, I sterilely prepped the area over the A1 héctor of the flexor tendon sheath of the right middle finger. I then injected the flexor tendon sheath with a combination of 1 mL of dexamethasone (4mg/ml), and 1% lidocaine. The patient tolerated the procedure well with no complications. If the patient continues to have locking and catching 4-6 weeks following this injection, they may call to schedule appointment to discuss alternative treatment options Follow-up prn Orders: Orders XR hand RT min 3V Today M79.641 - Pain in right hand Coding Level of Care Code New Pt Level 3 (62315) Diagnoses Other synovitis and tenosynovitis, right hand M65.841 CPT Codes Tendon Injection - Tendon Injection 1: [id number] Tendon Sheath Injection ([id number])
== END 2025-01-05 14:46 | disposition home or self-care (01) ==
LOC: HO.HOS 13:57
PROVIDERS: PCP Nurse Practitioner Family
DX: M65.841 Other synovitis and tenosynovitis, right hand (principal)
CPT/HCPCS: 20550; 99203

== ENCOUNTER → 2025-01-05 13:58 | Outpatient (BNV) | payer MEDICARE, SELFPAY | PROVIDERS: Visit Provider Radiology Diagnostic Radiology | DX: M79.641 Pain in right hand (principal) | CPT/HCPCS: 73130 ==

== ENCOUNTER 2025-01-18 12:49 | Outpatient (AMB) | payer MEDICARE, SELFPAY ==
--- NOTE | 2025-01-18 12:53 | MHC.OFFVIS ---
Vital Signs 01/18/25 13:00 Height 4 ft 10.74 in Weight 131 lb 9.855 oz BMI 26.8 BP 132/62 Blood Pressure Location Lt brachial Position Sitting Pulse 102 H Pulse Source Pulse Oximeter Pulse Oximetry (%) 96 Oxygen Delivery Method Room Air Intake Visit Reasons: f/u osteoporosis Intake Note: Patient present today for Osteoporosis follow up. 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 Accompanied by: Self / Same As Patient Allergies aspirin [ASA] Allergy (Intermediate, Verified 01/18/25 13:00) TACHYCARDIA buspirone [From BuSpar] Allergy (Unknown, Verified 01/18/25 13:00) Stomach Upset Sulfa (Sulfonamide Antibiotics) [SULFA(SULFONAMIDE ANTIBIOTICS)] Adverse Reaction (Intermediate, Verified 01/18/25 13:00) VOMITING chlorthalidone Adverse Reaction (Unknown, Verified 01/18/25 13:00) Stomach pain, loss of appetite Medication List - Last Reconciled 01/18/25 by Frank Patiño MD apple cider vinegar mg PO brimonidine 0.2% 1 drp ophthalmic-Right TID cranberry extract 1,000 mg PO TID denosumab (Prolia) 60 mg subcut [id number] ginkgo biloba-Panax ginseng rt 60-100 mg caps PO hydrocortisone 2.5% 1 appl NE BID-QID PRN indapamide 1.25 mg PO QAM latanoprost 0.005% 1 drp ophthalmic (eye) BEDTIME loratadine (Allergy Relief (loratadine)) 10 mg PO DAILY montelukast (Singulair) 10 mg PO BEDTIME moxifloxacin 0.5% drps ophthalmic (eye) ondansetron 4 mg PO Q8H PRN pantoprazole 40 mg PO BID vitamin B complex 1 cap PO DAILY HPI Comments Details: 84 YO Female with a PMHx of Uveal Melanoma s/p radiation therapy who is seen in F/U for Osteoporosis, NTMNG and idiopathic hypercalciuria. Of note, after her visit in 10/2019 she was meant to initiate Reclast. She opted to not have this infusion, and was lost to F/U. She was also found to have a MNG. She underwent FNA biopsy 11/09/2021 of her left mid pole 4.6 cm and her isthmus 1.3 cm thyroid nodules. Cytology for both revealed atypia of undetermined significance (bethesda category III). Affirma unfortunatly was a degraded sample for the left mid pole 4.6 cm nodule, but benign for the isthmus 1.3 cm thyroid nodule. She opted for a total thyroidectomy rather than repeat FNA attempt and has been referred to Dr. Guthrie. She underwent a L hemithyroidectomy 09/11/2022. Official surgical path was benign. She had also stopped her calcium supplement and repeated her 24 hour urine collection. This revealed hypercalciuria, into the mid 300's. PTH and Calcium have remained WNL. This was thought related to idiopathic hypercalciuria. She was started on HCTZ 12.5 mg PO daily and 24 hour urine calcium repeated 1 month later, and this revealed persistent hypercalciuria. Dose of HCTZ was increased to 25 mcg PO daily but she was unable to tolerate this due to headaches. History: ?First diagnosed with Osteoporosis many years ago. Has severe Osteoporosis with Lumbar T score -4.1, and distal radius T score -4.1. ?Was treated with Fosamax from [id number]. ?She was previously managed by Endocrinologists Dr. Murray, and then by Dr. Estrada in [place], [place]. ?She did suffer a hip fracture at the age of 60. 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 ?Has 1-2 servings of dietary calcium per day in the form of nuts and ice cream. Takes Calcium supplement 600 mg daily. Takes 2000 IU of Vitamin D daily. 24 hour urine calcium has remained elevated. She presents today to review this. ?Does use Protonix daily. Denies ever using an anticoagulant, antiepileptic or glucocorticoid medication. ?Does no scheduled exercise. ?Fracture history: ?Fractured her R hip in 2014 when she slipped on the ice on her drive way. Had ORIF. Compression fracture L2-L5 03/2022. ?Height loss: ?Has lost 2 inches in height. ?DERRICK BOAT LEVERMAN history: ?Menarche was age 14. Menses was always regular. . She did not breastfeed. Menopause was age 51. Used HRT for 6 months, but then stopped. ?History of Kidney stones: ?Denies. ?Family history of Osteoporosis or hip fracture: ?Mother with hip fracture. ?UTD on dental cleanings and sees dentist every 6 months. No planned upcoming dental work or extractions. US Thyroid: 07/25/2021 Right Thyroid Lobe: 5.1 x 1.9 x 1.7 cm, volume 8.6 mL. Previously 5.5 x 1.9 x 1.9 cm, volume 10.4 mL. Parenchyma: The gland echotexture is homogeneous. Thyroid vascularity is increased. Left Thyroid Lobe: 7.7 x 3.5 x 3.6 cm, volume 50.7 mL. Previously 7.0 x 3.4 x 2.2 cm, volume 27.6 mL. Parenchyma: The gland echotexture is homogeneous. Thyroid vascularity is increased. Isthmus: 1.2 cm in maximum AP dimension. Previously 1.2 cm. Estimated total number of nodules greater than or equal to 1 cm: 2. [employer] Coordinator nodules are described as follows: 1.? Location: Isthmus. ?? ? Size: 1.3 x 0.6 x 1.3 cm, volume 0.53 mL. ?? ? Previously: 1.0 x 0.9 x 1.2 cm, volume 0.56 mL. ?? ? Nodule characteristics: ?? ? Composition: Solid (2). ?? ? Echogenicity: Isoechoic (1). ?? ? Shape: Not taller than wide (0). ?? ? Margins: Ill-defined (0). ?? ? Echogenic Foci: None (0). ? ACR TI-RADS total points: 3 ?? ? ACR TI-RADS category: 3 ? Significant change in size (>/= 20% in 2 dimensions and minimal increase of 2 mm or 50% or greater increase in volume): No ?? ? Change in features: No ?? ? Change in ACR TI-RADS risk category: No 2.? Location: Left mid/lower. ?? ? Size: 4.6 x 3.4 x 4.3 cm, volume 34.4 mL. ?? ? Previously: 4.2 x 3.4 x 4.0 cm, volume 29.9 mL. ?? ? Nodule characteristics: ?? ? Composition: Mixed cystic and solid (1). ?? ? Echogenicity: Cannot be determined (1). ?? ? Shape: Not taller than wide (0). ?? ? Margins: Lobulated (2). ?? ? Echogenic Foci: None (0).? ACR TI-RADS total points: 4 ?? ? ACR TI-RADS category: 4 ? Significant change in size (>/= 20% in 2 dimensions and minimal increase of 2 mm or 50% or greater increase in volume): Yes ?? ? Change in features: No ?? ? Change in ACR TI-RADS risk category: No 3.? Location: Right mid lateral. ?? ? Size: 0.7 x 0.4 x 0.5 cm, volume 0.08 mL. ?? ? Previously: New. ?? ? Nodule characteristics: ?? ? Composition: Spongiform (0). ?? ? ACR TI-RADS total points: 0 ?? ? ACR TI-RADS category: 1 ?? ? NODES: No lymphadenopathy is seen in the tissue surrounding the thyroid gland. ?DXA dated: ?08/02/2021 FINDINGS: AP SPINE L1-L4: BMD 0.639 g/cm2, Z-score -2.5, T-score -4.5, osteoporosis. LEFT FEMUR, NECK: BMD 0.593 g/cm2, Z-score -0.9, T-score -3.2, osteoporosis. LEFT FEMUR, TOTAL: BMD 0.649 g/cm2, Z-score -0.7, T-score -2.8, osteoporosis. LEFT FOREARM RADIUS 33%: BMD 0.502 g/cm2, Z-score -1.6, T-score -4.3, osteoporosis. Labs: Laboratory Tests 11/14/22 11/14/22 01/25/23 10:33 10:33 13:30 Sodium 141 Potassium 3.5 Ur 24 Hour Volume 1650 Ur Creatinine 24 Hour 0.94 Ur Calcium 24 Hr 353 H Calcium/Creat 24 Hr 375 H She is currently on Indapamide 1.25 mg q.d. with normalization of urinary calcium . Also on Prolia 60 mg q.6 months . Been on Prolia since 03/2024 . Receives Prolia in the infusion Center [place]. Has injection in May 27 2024 Due for injection in December 2023 . No symptoms of hyper thyroidism or hypothyroidism with does complain of an intermittent tremor The patient is an 84-year-old female presenting with osteoporosis management and follow-up. She has been under treatment with Prolia infusions every six months to manage osteoporosis and prevent further bone density reduction, having begun this treatment approximately one week ago. Her prior regimen included alendronate, followed by Fosamax for the past seven years. An episode of hip fracture in 2000 due to a fall has been a critical event, and measurements have shown a significant decrease in bone density, evidenced by a T-score of -4.5 in the spine previously. Her recent evaluations confirm no further incidences of fractures and consistent blood work showing effective management of osteoporosis. The patient also reported a ganglion cyst in the joint area, diagnosed by a hand specialist, with discussions around its removal as an option. - Alendronate for osteoporosis: The patient took this medication in the past; the details regarding dosage and duration were not recalled by the patient. - Fosamax for osteoporosis: Taken for seven years with good tolerance reported, however, detailed dosage is unspecified. - Indapamide for hypercalciuria: Patient continues to use for controlling high urine calcium. - Prolia for osteoporosis: Recently initiated biannual treatment, as of one week ago. [facility] Medical History Idiopathic hypercalciuria Vitamin D deficiency Ingrown toenail of right foot Hip fracture, right Multinodular goiter Osteoporosis Melanoma, choroid Surgical History History of lobectomy of thyroid Hx of cholecystectomy H/O colonoscopy Family History Father No problems noted. Mother No problems noted. Social History Housing: House Alcohol intake: never Patient Tobacco Use Status: Never used Tobacco e-Cigarette/Vaping Use: Never Used Second Hand Smoke Exposure: No Current occupational status: retired Cognitive needs: No Hearing needs: No Vision needs: Yes Physical Exam Vital Signs: BMI result Body Mass Index 26.8 Assessment & Plan Assessment & Plan (1) Osteoporosis: Comment: took Fosamax for 7 yrs, DEXA 09/14 T score -4.5 (spine) cannot afford Prolia, F/U with Endo Code(s): M81.0 - Age-related osteoporosis without current pathological fracture Category: Medical Plan: This 83-year-old white female with a history of severe osteoporosis osteoporosis with hip and compression fractures in the past with secondary workup consistent with hypercalciuria. Patient is currently on Indapamide with normalization urinary calcium. She has contraindication to anabolic therapy because of radiation therapy.Took Fosamax for 7 yrs. Currently on Prolia for 1 yr Plan is continue, the vitamin-D, calcium and Prolia for full 5-10 years' duration 1. Osteoporosis The patient continues Prolia infusions amid stable disease management. The historical T-score and previous hip fracture endorse the importance of this regimen to mitigate further osteoporotic complications. A follow-up bone density test is anticipated for August 2025 to assess disease trajectory and impact of treatments. During this visit, I explained the continuation of osteoporosis management with Prolia due to clinical history indicative of severe bone density loss demonstrated by the T-score of -4.5 and previous hip fracture. The patient understands that this treatment is unlikely to significantly increase bone density but will prevent further deterioration. We discussed the scheduling and importance of routine bone density follow-ups. - Continue with the scheduled Prolia infusions every six months. - Monitor the ganglion cyst for size or symptomatic changes; consider surgical removal if necessary. - Follow-up with bone density study around August 2025. - Notify of any new fractures or changes in condition. - The patient had an opportunity to ask questions regarding treatment plan. The patient expressed understanding and agreement with the above treatment plan. Patient was informed and verbally consented to the use of an ambient scribe for clinic note documentation during this visit. Orders: Orders XR DEXA axial skeleton 8 Months M81.0 - Age-related osteoporosis without current pathological fracture Calcium 6 Months M81.0 - Age-related osteoporosis without current pathological fracture Basic Metabolic Panel 6 Months M81.0 - Age-related osteoporosis without current pathological fracture Albumin Level 6 Months M81.0 - Age-related osteoporosis without current pathological fracture Coding Level of Care Code Est Pt Level 3 (62627) Diagnoses Osteoporosis M81.0
[2025-01-18 13:00] VITALS: BP 132/62; PULSE 102; O2SAT 96; BMI 26.8
--- OUTSIDE RECORDS SUMMARY | 2025-01-18 15:12 | XMS_ITS | Data Portability ---
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 Dr. Murrya recommended a repeat tsh and physical exam [...] recorded. Lab calcium, 24-hour urine 2018 019 [facility], [address] [place] [address], [address], 9 21:12:19 creatinine , 24-hour urine 2018 019 [facility], [address] [place] [address], [address], 9 21:12:21 PTH (parathyro id hormone), intact, serum or plasma 2018 019 [facility], [address] [place] [address], [address], 9 14:18:39 magnesium, serum or plasma 2018 019 [facility], [address] [place] [address], [address], 9 14:55:30 TSH, serum or plasma 2018 019 [facility], [address] [place] [address], [address], 9 14:18:39 vitamin D, 25-hydroxy , total, serum 2018 019 [facility], [address] [place] [address], [address], 9 14:18:40 renal function panel, serum 2018 019 [facility], [address] [place] [address], [address], 9 14:55:29 Referral None recorded. Procedures None recorded. Surgeries None recorded. Imaging US, liver 2017 018 [facility] (Imaging), [address], [place], [place], [address], 8 11:16:52 Medication Orders risedronat e 35 mg tablet [address] [id number], [address], [place], [id number], 9 11:10:03 Patient TargetsNo targets recorded. Patient Instructions Encounter Date Encounter Id Patient Instructions Last Modified By Organization Details Last Modified Time 08/13/2018 [id number] advance directives: care instructions sesrick Not available [...] en 0.4-4 .0 mIU/m L. Not Available [address], [address], 01/21/2019 14:18:39 01/22/20 19 01/21/2019 PTH (para thyro id hormo ne), intac t, serum or plasm a PTH intact 22.8 pg/mL 9.6-66 .3 Not Available [address], [address], 01/21/2019 14:18:39 01/22/2001/21/2019 vitam in D, 25-hy [...] er than 30 ng/mL . Not Available [address], [address], 01/21/2019 14:18:40 01/22/2001/21/2019 renal funct ion panel , serum glucose 105 mg/dL 70-100 high Not Available [address], [address], 01/21/2019 14:55:29 01/22/2001/21/2019 renal funct ion panel , serum BUN 20 mg/dL 7-18 high Not Available [address], [address], 01/21/2019 14:55:29 01/22/2001/21/2019 renal funct ion panel , serum creatinine 0.8 mg/dL 0.8-1. 3 Not Available [address], [address], 01/21/2019 14:55:29 01/22/2001/21/2019 renal funct ion panel , serum B/C 25.0 ratio Not Available [address], [address], 01/21/2019 14:55:29 01/22/2001/21/2019 renal funct ion panel , serum GFR -non 77.9 mL/mi n Recom doc d GFR by the Natio nal Kidne y Found ation >60 mL/mi n/1.7 3m2 - Vane l <60 mL/mi n/1.7 3m2 - Chron ic Kidne y Disea se <15 mL/mi n/1.7 3m2 - Kidne y Failu re Not Available [address], [address], 01/21/2019 14:55:29 01/22/2001/21/2019 renal funct ion panel , serum GFR - if 89.6 mL/mi n For Afric an Ameri can patie nts: Resul ts Multi plied by 1.21 Not Available [address], [address], 01/21/2019 14:55:29 01/22/2001/21/2019 renal funct ion panel , serum sodium 145 mmol/ L 136-14 5 Not Available [address], [address], 01/21/2019 14:55:29 01/22/2001/21/2019 renal funct ion panel , serum potassium 4.1 mmol/ L 3.5-5. 1 Not Available [address], [address], 01/21/2019 14:55:29 01/22/2001/21/2019 renal funct ion panel , serum chloride 106 mmol/ L 96-107 Not Available [address], [address], 01/21/2019 14:55:29 01/22/2001/21/2019 renal funct ion panel , serum anion gap 10.2 5.0-15 .0 Not Available [address], [address], 01/21/2019 14:55:29 01/22/2001/21/2019 renal funct ion panel , serum CO2 29 mmol/ L 21-32 Not Available [address], [address], 01/21/2019 14:55:29 01/22/2001/21/2019 renal funct ion panel , serum calcium 9.4 mg/dL 8.5-10 .3 Not Available [address], [address], 01/21/2019 14:55:29 01/22/2001/21/2019 renal funct ion panel , serum albumin 3.7 g/dL 3.4-5. 0 Not Available [address], [address], 01/21/2019 14:55:29 01/22/20 19 01/21/2019 renal funct ion panel , serum phosphorous 3.50 mg/dL 2.50-4 .90 Not Available [address], [address], 01/21/2019 14:55:29 01/22/20 19 01/21/2019 magne sium, serum or plasm a magnesium 2.0 mg/dL 1.8-2. 4 Not Available [address], [address], 01/21/2019 14:55:30 02/21/20 19 02/23/2019 calci um, 24-ho ur urine calcium, 24 hour urine 411 mg/24 _h high Refer ence Range 35-25 0 Low calci um diet 35-20 0 TOTAL URINE VOLUM E: 1700/ 24 Not Available [facility] [address], [address], 02/23/2019 21:12:19 02/21/20 19 02/23/2019 creat inine , 24-ho ur urine creatinine, 24 hour urine 0.97 g/24_ h 0.50-2 .15 normal TOTAL URINE VOLUM E: 1700/ 24 Not Available [facility] [address], [address], 02/23/2019 21:12:21 08/08/20 18 07/31/2018 bone densi [...] This scan was perfor med using the Aaron Andrews [employer] Prodig y Primo [address] [facility] , [address] [place]. Read by: Cristiano acuna PA-C, CCD Electr onical ly signed Estrada rajan Physic cornelia: Jeannette Andersen [facility] (Imaging) [address], [place], [address], 08/09/2018 19:45:09 08/25/20 18 08/25/2018 US, liver [...] - VMG Electr onical ly signed Readkoffi rjaan Physic cornelia: Lex Odell MD [facility] (Imaging) [address] , [place], [address], 01/26/2019 09:26:11 01/29/20 19 01/28/2019 MAMMO , [...] fibrog landul ar densit ies. POS - [id number] Electr onical ly Signed by: MERON CORADO on 01/29/20 6:46 PM Interp reted by: Meron Corado MD Signed by: Meron Corado MD 01/28/19 CC Recipi ents: Anjelica Clarke MD - Fax Final result TY SAMS jennifer [facility] [address] [place] [address], [address], 01/28/2019 20:22:13 01/29/20 19 01/28/2019 MAMMO , scree tez No observ ation record ed. [email or web address] [address], [address], 02/02/2019 09:08:34 Result Notes None recorded. 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 needs lft's q yr and ultrasoun d of abdomen qyr Calos Valiente MD [address] [place] [address] [place], [address], [facility] 7 14:58:02 Computed tomograp hy result abnormal 272028758 Completed 10/12/2015 Calos Valiente MD [address] [place] [address] [place], [address], [facility] 6 13:28:27 Solitary nodule of lung 344565118 Active [address] low dose repeat CT Sep 2017 Calos Valiente MD [address] [place] [address] [place] [address], [facility] 7 08:18:25 Mixed hyperlip idemia 788102460 Active 2008 Calos Valiente MD [address] [place] [address] [place] [address], [facility] 6 13:28:26 Nervous system symptoms Completed 200409/05/2011 Calos Valiente MD [address] [place] [address] [place], [address], [facility] 6 13:28:26 Colitis, enteriti s and gastroen teritis presumed infectio us 114029898 Completed 04/06/2013 Calos Valiente MD [address] [place], [place] [address]J[place], [address], [facility] 6 13:28:26 Abnormal findings on diagnost ic imaging of breast 871871400 Completed 200007/18/2009 Calos Valiente MD [address] [place] [address] [place], [address], [facility] 6 13:28:26 Gastroes ophageal reflux disease 781705912 Active 2006 Calos Valiente MD [address] [place] [address] [place], [address], [facility] 6 13:28:26 Non-toxi c uninodul ar goiter 500725403 Completed 200310/28/2014 Calos Valiente MD [address] [place], [place] [address], [address], [facility] 6 13:28:26 Nausea and vomiting 90210622 Completed 200604/06/2013 Calos Valiente MD [address] [place] [address] [place], [address], [facility] 6 13:28:26 Lateral epicondy litis 691948081 Completed 200407/18/2009 Calos Valiente MD [address] [place] [address] [place], [address], [facility] 6 13:28:26 Divertic ulitis of colon 666353280 Active 2006 Calos Valiente MD [address] [place] [address] [place], [address], [facility] 6 13:28:26 Neck pain 93591830 Completed 200307/18/2009 Calos Valiente MD [address] [place] [address] [place], [address], [facility] 6 13:28:26 Atypical facial pain 35570204 Completed 200102/20/2011 Calos Valiente MD [facility] [place], [address], [facility] 6 13:28:26 Left lower quadrant pain 633041132 Completed 200704/06/2013 Calos Valiente MD [address] [place] [address] [place], [address], [facility] 6 13:28:26 Epidermo id cyst of skin 480970099 Completed 09/05/2011 Calos Valiente MD [address] [place] [address] [place], [address], [facility] 6 13:28:26 Epidermo id cyst of skin 453780549 Completed 200102/20/2011 Calos Valiente MD [address] [place] [address] [place], [address], [facility] 6 13:28:26 Sprain of shoulder and upper arm Completed 200604/06/2013 Calos Valiente MD [address] [place] [address] [place], [address], [facility] 6 13:28:26 Acute maxillar y sinusiti s 29515590 Completed 200202/20/2011 Calos Valiente MD [address] [place], [place] [address], [address], [facility] 6 13:28:26 Non-toxi c multinod ular goiter 45148345 Active 2007 Calos Valiente MD [address] [place] [address] [place], [address], [facility] 6 13:28:26 Divertic ular disease of colon 747873655 Completed 200810/28/2014 Calos Valiente MD [address] [place], [place] [address], [address], [facility] 6 13:28:26 Hashimot o thyroidi tis 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 Active 2004 get tsh 07/2017 Calos Valiente MD [address] [place] [address] [place], [address], [facility] 6 16:46:00 Acute bronchit is 82587353 Completed 200002/20/2011 Calos Valiente MD [facility] [place], [address], [facility] 6 13:28:26 Left upper quadrant pain 922432898 Completed 200002/20/2011 Calos Valiente MD [address] [place] [address] [place], [address], [facility] 6 13:28:26 Decrease in height 48775017 Completed 200608/12/2013 Calos Valiente MD [address] [place] [address] [place], [address], [facility] 6 13:28:26 Headache 86970670 Completed 200007/18/2009 Calos Valiente MD [address] [place] [address] [place], [address], [facility] 6 13:28:26 Sprain of ligament of lumbosac ral joint Completed 200210/28/2014 Calos Valiente MD [address] [place] [address] [place], [address], [facility] 6 13:28:26 Carpal tunnel syndrome 60574437 Completed 200007/18/2009 Calos Valiente MD [address] [place] [address] [place], [address], [facility] 6 13:28:26 Hyperthy roidism 70224677 Completed 200610/21/2017 Calos Valiente MD [address] [place] [address] [place], [address], [facility] 8 12:19:41 Contact dermatit is 88531477 Completed 200809/05/2011 Calos Valiente MD [address] [place] [address] [place], [address], [facility] 6 13:28:26 Senile hyperker atosis 881605229 Completed 200809/05/2011 Calos Valiente MD [address] [place] [address] [place], [address], [facility] 6 13:28:26 Pain of shoulder region 32869465 Completed 200604/06/2013 Calos Valiente MD [address] [place] [address] [place], [address], [facility] 6 13:28:26 Gastro-e sophagea l reflux disease with esophagi tis 711692286 Completed 199910/28/2014 Calos Valiente MD [address] [place] [address] [place], [address], [facility] 6 13:28:26 Clostrid ioides difficil e infectio n 628552954 Completed 200610/28/2014 Calos Valiente MD [address] [place] [address] [place], [address], [facility] 6 13:28:26 Astigmat ism 10399745 Completed 200507/18/2009 Calos Valiente MD [address] [place] [address] [place], [address], [facility] 6 13:28:26 Impacted cerumen 79243433 Completed 200102/20/2011 Calos Valiente MD [address] [place] [address] [place], [address], [facility] 6 13:28:26 Sprain of spinal ligament 697329808 Completed 200007/18/2009 Calos Valiente MD [address] [place] [address] [place], [address], [facility] 6 13:28:26 Conducti ve hearing loss 87386404 Active 2003 Calos Valiente MD [address] [place] [address] [place], [address], [facility] 6 13:28:26 Sprain of ankle 61569811 Completed 200809/05/2011 Calos Valiente MD [address] [place] [address] [place], [address], [facility] 6 13:28:26 Irritabl e bowel syndrome 49363588 Active 2006 [place], [address], [facility] 6 13:28:26 Breathin g painful 82853692 Completed 200207/18/2009 [place], [address], [facility] 6 13:28:26 Adverse reaction to substanc e 472449564 Completed 199907/18/2009 Calos Valiente MD [facility], [address], [facility] 6 13:28:26 Injury of lower limb 156090678 Completed 200007/18/2009 Calos Valiente MD [facility], [address], [facility] 6 13:28:26 Breast lump 64496136 Completed 200507/18/2009 Calos Valiente MD [facility], [address], [facility] 6 13:28:26 Gastroin testinal hemorrha ge 08852918 Completed 200504/06/2013 Calos Valiente MD [address] [place] [address] [place], [address], [facility] 6 13:28:26 Nonvenom ous insect bite of multiple sites 837638109 Completed 200604/06/2013 Calos Valiente MD [address] [place] [address] [place], [address], [facility] 6 13:28:26 Mammogra phy abnormal 801026224 Completed 200409/05/2011 [place], [address], [facility] 6 13:28:26 Common cold 74707231 Completed 200604/06/2013 Calos Valiente MD [facility], [address], [facility] 6 13:28:26 Postarti ficial menopaus al syndrome 20988398 Completed 200608/12/2013 Calos Valiente MD [address] [place], [place] [address], [address], [facility] 6 13:28:26 On examinat ion - a rash Completed 200804/06/2013 Calos Valiente MD [address] [place], [place] [address], [address], [facility] 6 13:28:26 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 Calos Valiente MD [facility], [address], [facility] 6 13:28:26 Senile osteopor osis 19100684 Completed 200404/06/2013 Calos Valiente MD [facility] [place], [address], [facility] 6 13:28:26 Chest pain 90412781 Completed 200804/06/2013 Calos Valiente MD [address] [place], [place] [address], [address], [facility] 6 13:28:26 Osteopor osis 38472806 Active 2004 [place], [address], [facility] 6 13:28:26 Menopaus al symptom 60813071 Completed 200208/12/2013 [place], [address], [facility] 6 13:28:26 Osteoart hritis 567168513 Active 2000 Calos Valiente MD [address] [place], [place] [address], [address], [facility] 6 13:28:27 Solitary cyst of breast 316977761 Completed 200002/20/2011 Calos Valiente MD [address] [place] [address] [place], [address], [facility] 6 13:28:26 External hemorrho ids 46138605 Completed 200709/05/2011 Calos Valiente MD [address] [place], [place] [address], [address], [facility] 6 13:28:26 Problem Notes None recorded. Procedures Surgical History Date Name Laterality Status Provider Name and Address Organization Details Recorded Time 08/13/20 18 Medicare Wellness Visit completed Anna Jaeger LPN [facility] 08/13/2018 15:32:17 11/14/19 18 Tassoni - Colonoscopy completed Tru Roberts MD [address] [place] [address], [address], [facility] 11/14/2017 10:50:24 07/02/20 17 Cerumen Removal - Irrigation/Lavage completed Glory Shi CERTIFIED PROSTHETIST/ORTHOTIST [facility] 07/02/2017 12:00:33 04/22/20 17 Medicare Wellness Visit completed Binta Lam MA [facility] 04/22/2017 11:39:26 05/02/20 16 Cerumen Removal - Irrigation/Lavage completed Cecelia Newell LPN [facility] 05/02/2016 14:24:43 04/19/20 16 Medicare Wellness Visit completed Tammy Grace MA [facility] 04/19/2016 10:18:59 04/18/20 15 Medicare Wellness Visit completed Binta Lam MA [facility] 04/18/2015 11:56:21 03/23/20 15 Cerumen Removal completed Lety Castellon LPN [facility] 03/23/2015 10:27:25 04/15/20 14 Medicare Wellness Visit completed Binta Lam MA [facility] 04/15/2014 15:11:55 08/12/20 13 Cerumen Removal completed Lety Castellon LPN [facility] 08/12/2013 12:22:56 04/06/20 13 Medicare Wellness Visit completed Binta Lam MA [facility] 04/06/2013 11:39:32 10/06/19 13 Cerumen Removal completed Sebastián Syed RN [facility] 10/06/2012 16:43:15 09/02/20 12 Suture/staple Removal completed Irene Kirk LPN [facility] 09/02/2012 11:19:40 08/26/20 12 Excision completed Calos Valiente MD [address] [place] [address], [address], [facility] 08/26/2012 14:18:50 03/27/20 12 Medicare Wellness Visit completed Binta Lam MA [facility] 03/27/2012 11:35:52 02/20/20 12 Cerumen Removal completed Abbie Lal RN [facility] 02/20/2012 15:58:57 08/09/20 11 Cerumen Removal completed Irene Kirk LPN [facility] 08/09/2011 12:13:13 03/07/20 11 Suture/staple Removal completed Abbie Lal RN [facility] 03/07/2011 11:51:06 02/27/20 11 Excision completed Calos Valiente MD [address] [place] [address], [address], [facility] 02/26/2011 10:58:49 02/21/20 11 Medicare Annual Wellness Visit completed Binta Lam MA [facility] 02/20/2011 09:28:23 02/21/20 11 Medicare Risk for Falls Screen completed Calos Valiente MD [address] [place] [address], [address], [facility] 02/20/2011 09:40:31 02/21/20 11 Advanced Care Planning completed Calos Valiente MD [address] [place] [address], [address], [facility] 02/20/2011 09:53:51 01/19/20 11 Cerumen Removal completed Mary Angel NP [address] [place], [address], [facility] 01/18/2011 17:44:54 06/09/20 10 Cerumen Removal completed Lety Castellon CERTIFIED PROSTHETIST/ORTHOTIST [facility] 06/09/2010 15:25:27 03/28/20 10 Corticosteroid Injection completed Calos Valiente MD [address] [place], [address], [facility] 03/28/2010 11:03:57 12/29/19 10 Cerumen Removal completed Zeinab Greene [facility] 12/28/2009 09:50:55 06/01/20 09 Cerumen Removal completed Irene Kirk [facility] 06/01/2009 12:02:59 06/12/20 06 completed Not Available [facility] 08/09/2011 06:05:52 Imaging Results Imaging Date Name Status LastModified by Organiz ation Details LastModified Time 07/31/2018 bone density completed [facility] ([facility]) [address], [place], [address], 08/09/2018 19:45:09 08/25/2018 US, liver completed [facility] (Imaging) [address], [place], [address], 01/26/2019 09:26:11 01/28/2019 MAMMO, screening, tomosynthesis, bilateral, w/ CAD completed [facility] [address] [place] [address], [address], 01/28/2019 20:22:13 01/28/2019 MAMMO, screening completed [email or web address] [place] [address], [address], 02/02/2019 09:08:34 Procedure Notes None recorded. Medical Equipment None Reported. Allergies Allergen ID Allergen Name Allergen Category Reaction Reaction Severity Criticality Documentation Date Start Date Code Code System Note Provider Name and Address Organization Details Recorded Time 15240 Substance with sulfonami de structure and antibacte rial mechanism of action (substanc e) medicatio n Not available Not available Not available 09/09/2010 21744 8003 SNOMED Not Available [facility] 1 06:05:41 Medications Name Sig Start Date [...] Not Available Not Available Not Available Fluvirin 4022-9956 45 mcg (15 mcg x 3)/0.5 mL [...] Updated DateTime 8 154.94 cm 26.5 kg/m2 68452.9 3 g 84 /min 130 mm[Hg] 70 mm[Hg] Glory Colindres [facility] 8 13:50:20 Date Recorded Body height Body mass index (BMI) Body weight Heart rate Systolic blood pressure Diastolic blood pressure Provider Name and Address Organization Details Last Updated DateTime 8 155.58 cm 25.9 kg/m2 10598.7 5 g 82 /min 140 mm[Hg] 78 mm[Hg] Darya Watson [facility] 8 11:07:18 Date Recorded Body height Body mass index (BMI) Body weight Heart rate Respiratory rate Systolic blood pressure Diastolic blood pressure Provider Name and Address Organization Details Last Updated DateTime 8 155.58 cm 25.9 kg/m2 67598.1 5 g 96 /min 20 /min 130 mm[Hg] 60 mm[Hg] Anna Jaeger [facility] 8 15:38:38 Date Recorded Body height Body mass index (BMI) Body weight Heart rate Systolic blood pressure Diastolic blood pressure Provider Name and Address Organization Details Last Updated DateTime 9 155.58 cm 24.9 kg/m2 36099.7 9 g 80 /min 122 mm[Hg] 60 mm[Hg] Doreen santiago, [facility] 9 10:31:03 Date Recorded Body height Body mass index (BMI) Body weight Heart rate Systolic blood pressure Diastolic blood pressure Provider Name and Address Organization Details Last Updated DateTime 9 155.58 cm 24.2 kg/m2 85080.8 5 g 86 /min 138 mm[Hg] 66 mm[Hg] Patricia Mills [facility] 9 10:46:19 Social History Question Answer Notes LastModified by Organizat ion Details LastModified Time Tobacco Smoking Status Never Smoker Not Available [facility] 08[facility]/2011 04:53:18 Do You Have An Advance [...] available 2017 15:16:24 Notes:brother-; father and b roxana had tb, mother breast cancer. Medical History [...] virus, trivalent, preservative 9 completed Not Available [facility] 10/10/2019 02:38:54 Influenza, split virus, trivalent, preservative 1 completed Not Available [facility] 10/10/2019 02:31:48 influenza, unspecified formulation 2 completed Not Available [facility] 08/08/2011 05:21:07 influenza, unspecified formulation 5 completed Not Available [facility] 08/08/2011 05:21:29 pneumococcal polysaccharide PPV23 7 completed Not Available [facility] 08/08/2011 05:21:29 influenza, unspecified formulation 7 completed Not Available [facility] 08/08/2011 05:21:55 Td(adult) unspecified formulation 8 completed Not Available [facility] 08/08/2011 05:21:55 influenza, unspecified formulation 8 completed Not Available [facility] 08/08/2011 05:21:55 Influenza, split virus, trivalent, preservative 2 completed Not Available [facility] 10/10/2019 02:33:39 Influenza, split virus, trivalent, PF 3 completed Not Available [facility] 10/10/2019 02:18:57 zoster live 8 completed Not Available [facility] 08/08/2011 05:22:52 Pneumococcal conjugate PCV 13 5 completed Not Available [facility] 10/10/2019 02:28:18 Novel tyfivxbar-[id number] 0 completed Not Available [facility] 10/10/2019 02:25:07 Influenza, high-dose, trivalent, PF 6 completed Not Available [facility] 10/10/2019 02:21:03 Influenza, split virus, trivalent, PF 4 completed Not Available [facility] 2019 02:10:39 Influenza, high-dose, trivalent, PF 7 completed Not Available [facility] 10/10/2019 02:21:41 Influenza, high-dose, trivalent, PF 5 completed Emmanuelle Perez, RN, BSN [facility] 07/17/2015 12:34:45 Influenza, high-dose, trivalent, PF 8 completed Not Available [facility] 10/10/2019 02:23:03 Influenza, split virus, trivalent, preservative 0 completed Not Available [facility] 10/10/2019 02:27:08 Past Encounters Encounter ID Performer Location Encounter Start Date Encounter Closed Date Diagnosis/Indication Diagnosis SNOMED-CT Code Diagnosis ICD10 Code Diagnosis Note [id number] FP, NHC, OFFICE [address] [facility] [address] 08/21/2000 11:45:00 10/13/2008 02:02:29 [id number] FP, VAC, OFFICE 70 [facility] [place] [address] 09/02/2000 14:15:00 10/13/2008 02:02:29 [id number] [facility] Urgent Care [address] [place] [address] 01/11/2001 10:00:00 10/13/2008 02:02:29 [id number] FP, [facility], OFFICE 70 [facility] [place] [address] 02/19/2001 16:15:00 10/13/2008 02:02:29 [id number] FP, VAC, OFFICE 70 [facility] [place] [address] 02/26/2001 10:30:00 10/13/2008 02:02:29 [id number] FP, [facility], OFFICE [address] [place] [address] 01/02/2001 10:30:00 10/13/2008 02:02:29 [id number] FP, [facility], OFFICE [address] [place] [address] 03/28/2001 11:00:00 10/13/2008 02:02:29 [id number] Radiology , [facility] [address] [place] [address] 03/20/2001 14:00:00 10/13/2008 02:02:29 [id number] FP, [facility], OFFICE [address] [place] [address] 6 07/23/2001 11:45:00 10/13/2008 02:02:29 [id number] FP, VAC, OFFICE [address] [place] [address] 6 09/26/2001 14:45:00 10/13/2008 02:02:29 [id number] FP, VAC, OFFICE [address] [place] [address] 11/21/2001 15:30:00 10/13/2008 02:02:29 [id number] FP, VAC, OFFICE [address] [place] [address] 12/29/2001 09:45:00 10/13/2008 02:02:29 [id number] FP, VAC, OFFICE [address] [place] [address] 6 03/23/2002 10:28:26 10/13/2008 02:02:29 [id number] FP [facility], OFFICE [address] [place] [address] 6 04/06/2002 10:46:02 10/13/2008 02:02:29 [id number] FP [facility], OFFICE [address] [place] [address] 04/15/2002 09:55:33 10/13/2008 02:02:29 [id number] Radiology , [facility] [address] [place] [address] 04/20/2002 12:03:48 10/13/2008 02:02:29 [id number] LAB - [address] [place] [address] 04/24/2002 11:52:43 10/13/2008 02:02:29 [id number] FRANKO [facility], OFFICE [address] [facility] [place] [address] 05/08/2002 10:10:02 10/13/2008 02:02:29 [id number] , [facility], OFFICE [address] [facility] [place] [address] 06/02/2002 10:02:44 10/13/2008 02:02:29 [id number] FP, [facility], OFFICE [address] [facility] [place] [address] 09/03/2002 15:26:30 10/13/2008 02:02:29 [id number] FP, [facility], OFFICE [address] [facility] [place] [address] 6 10/20/2002 15:09:26 10/13/2008 02:02:29 [id number] FP, [facility], OFFICE [address] [facility] [place] [address] 6 11/18/2002 15:24:24 10/13/2008 02:02:29 [id number] FP, [facility], OFFICE [address] [facility] [place] [address] 6 02/17/2003 11:13:26 10/13/2008 02:02:29 [id number] LAB - [facility] [address] [facility] [place] [address] 04/01/2003 09:02:04 10/13/2008 02:02:29 [id number] FP [facility], OFFICE [address] [facility] [place] [address] 03/31/2003 10:18:52 10/13/2008 02:02:29 [id number] Radiology , [facility] [address] [place] [address] 04/06/2003 13:30:30 10/13/2008 02:02:29 [id number] LAB - [address] [place] [address] 04/21/2003 11:18:36 10/13/2008 02:02:29 [id number] Radiology , [facility] [address] [place] [address] 04/28/2003 09:22:40 10/13/2008 02:02:29 [id number] [facility], OFFICE [address] [place] [address] 09/07/2003 09:47:15 09/07/2003 12:29:27 [id number] FP [facility], OFFICE [address] [facility] [place] [address] 01/24/2004 14:57:53 01/24/2004 17:30:12 [id number] [facility], OFFICE [address] [facility] [place] [address] 6 04/05/2004 10:26:08 04/05/2004 12:21:18 [id number] Radiology , [facility] [address] [place] [address] 04/12/2004 11:02:10 04/13/2004 09:25:21 [id number] [facility], OFFICE [address] [facility] [place] [address] 04/17/2004 15:30:13 04/17/2004 16:37:04 [id number] LAB - [address] [place] [address] 04/24/2004 15:03:32 04/24/2004 15:06:17 [id number] FP [facility], OFFICE [address] [facility] [place] [address] 6 05/16/2004 14:21:17 05/16/2004 15:36:35 [id number] Physical Therapy, [facility] [address] [place] [address] 05/22/2004 14:17:10 05/22/2004 15:34:02 [id number] FP [facility], OFFICE [address] [facility] [place] [address] 06/12/2004 14:03:54 06/13/2004 08:44:24 [id number] [facility], OFFICE [address] [place] [address] 6 11/28/2004 10:48:03 11/28/2004 14:51:49 [id number] Radiology , [facility] [address] [place] [address] 04/02/2005 11:29:30 04/03/2005 08:57:38 [id number] [facility], OFFICE [address] [place] [address] 04/09/2005 10:33:55 04/09/2005 13:48:49 [id number] Radiology , [facility] [address] [place] [address] 04/17/2005 10:42:51 10/13/2008 02:02:29 [id number] Radiology , [facility] [address] [place] [address] 6 05/08/2005 16:07:24 10/13/2008 02:02:29 [id number] [facility], OFFICE [address] [place] [address] 6 05/10/2005 15:23:51 10/13/2008 02:02:29 [id number] LAB - [address] [address] 07/04/2005 09:43:47 07/04/2005 09:44:04 [id number] [facility], OFFICE [address] [place] [address] 08/01/2005 16:31:52 10/13/2008 02:02:29 [id number] Eye Care, [address] [address] 03/18/2006 14:20:49 10/13/2008 02:02:29 [id number] , [facility], OFFICE [address] [place] [address] 03/28/2006 14:21:50 03/28/2006 16:26:32 [id number] , [facility], OFFICE [address] [place] [address] 04/11/2006 08:54:06 04/11/2006 11:24:55 [id number] , [facility], OFFICE [address] [place] [address] 04/15/2006 14:57:06 04/15/2006 16:14:28 [id number] [facility], [address] [address] 06/12/2006 08:17:24 06/13/2006 07:25:18 [id number] [facility], OFFICE [address] [facility] [place] [address] 06/27/2006 15:08:52 06/27/2006 16:35:06 [id number] [facility], OFFICE [address] [facility] [place] [address] 6 11/20/2006 11:08:58 11/21/2006 07:58:56 [id number] [facility], OFFICE 70 [facility] [place] [address] 12/24/2006 11:00:59 12/25/2006 11:23:21 [id number] Physical Therapy, [facility] Paul [facility] [place] [address] 12/27/2006 15:53:15 12/30/2006 17:04:09 [id number] Physical Therapy, [facility] Paul [facility] [place] [address] 01/13/2007 10:55:41 01/13/2007 16:17:17 [id number] Physical Therapy, [address] [place] [address] 01/27/2007 14:28:30 01/28/2007 09:18:42 [id number] LAB - [address] on [facility] [place] [address] 01/27/2007 10:43:06 01/27/2007 10:43:26 [id number] Physical Therapy, [facility] Paul [facility] [place] [address] 02/10/2007 10:22:04 02/10/2007 15:19:14 [id number] Physical Therapy, [facility] Paul [facility] [place] [address] 02/19/2007 11:53:15 02/19/2007 14:13:02 [id number] [facility], OFFICE 70 [facility] [place] [address] 02/20/2007 11:06:26 02/20/2007 15:54:33 [id number] Radiology , [facility] [address] [facility] [place] [address] 02/20/2007 11:31:53 02/21/2007 09:16:35 [id number] [facility], OFFICE 70 [facility] [place] [address] 03/01/2007 10:28:47 03/01/2007 13:23:12 [id number] FP, VAC, OFFICE 70 [facility] [place] [address] 04/02/2007 15:01:36 04/03/2007 08:21:50 [id number] FP, [facility], OFFICE [address] [facility] [place] [address] 04/14/2007 15:11:02 04/14/2007 16:37:50 [id number] FP, [facility], OFFICE [address] [facility] [place] [address] 06/09/2007 15:04:07 06/13/2007 12:49:41 [id number] Radiology , VAC 70 [facility] [place] [address] 06/26/2007 10:13:18 06/27/2007 09:20:06 [id number] FP, [facility], OFFICE [address] [facility] [address] 07/30/2007 15:24:07 10/13/2008 02:02:29 [id number] FP, [facility], OFFICE [address] [place] [address] 09/20/2007 09:17:48 10/13/2008 02:02:29 [id number] FP, [facility], OFFICE [address] [place] [address] 12/09/2007 15:04:32 10/13/2008 02:02:29 [id number] FP, [facility], OFFICE [address] [place] [address] 01/30/2008 11:39:32 10/13/2008 02:02:29 [id number] FP, VAC, [address]ICE [address] [place] [address] 04/13/2008 15:18:25 10/13/2008 02:02:29 [id number] FP, VAC, OFFICE [address] [place] [address] 07/14/2008 16:21:35 07/14/2008 16:21:40 [id number] FP, VAC, [address]ICE [address] [place] [address] 08/02/2008 15:47:27 10/13/2008 02:02:29 [id number] FP, VAC, [address]ICE [address] [place] [address] 10/06/2008 14:26:37 10/13/2008 02:02:29 [id number] FP, NHC, OFFICE [address] [facility] [place] [address] 6 11/18/2008 14:26:17 11/24/2008 11:20:41 [id number] Radiology , [facility] [address] [facility] [place] [address] 11/18/2008 14:43:54 11/18/2008 17:10:40 [id number] , [facility], OFFICE [address] [facility] [place] [address] 12/15/2008 12:05:15 12/17/2008 12:42:38 [id number] , [facility], OFFICE [address] [facility] [place] [address] 12/23/2008 15:34:50 12/27/2008 14:06:35 [id number] [facility], OFFICE [address] [facility] [place] [address] 02/09/2009 14:28:33 02/11/2009 15:21:27 [id number] [facility], OFFICE [address] [facility] [place] [address] 04/11/2009 15:07:16 04/13/2009 11:16:04 [id number] [facility], OFFICE [address] [facility] [place] [address] 05/04/2009 15:54:44 05/05/2009 14:57:03 [id number] [facility], OFFICE [address] [facility] [place] [address] 06/01/2009 11:10:23 06/06/2009 11:28:11 [id number] LAB - [facility] 70 [facility] [place] [address] 04/11/2009 15:59:01 04/11/2009 15:59:16 [id number] [facility] , [facility] 70 [place] [address] 07/25/2009 11:08:41 07/27/2009 11:30:05 [id number] [facility], OFFICE 70 [facility] [place] [address] 09/01/2009 11:05:17 09/05/2009 09:52:21 [id number] [facility], OFFICE [address] [facility] [place] [address] 10/06/2009 11:03:54 10/07/2009 12:30:46 [id number] [facility], OFFICE 70 [place] 6 11/04/2009 15:37:36 11/07/2009 14:10:42 [id number] FRANKO [facility], OFFICE 70 [place] ONE[place] 6 12/13/2009 15:26:07 12/15/2009 10:01:44 [id number] FRANKO [facility], OFFICE 70 [place] ONE[place] 6 12/28/2009 09:09:33 12/30/2009 09:59:30 [id number] FRANKO [facility], OFFICE 70 [place] ONE[place] 6 01/10/2010 10:54:36 01/10/2010 15:02:05 [id number] FRANKO [facility], OFFICE 70 [place] 6 03/28/2010 10:12:46 03/31/2010 08:59:43 [id number] Radiology , [facility] 70 [place] 6 03/28/2010 11:03:26 03/29/2010 12:23:35 [id number] FRANKO [facility], OFFICE 70 [place] 6 04/17/2010 09:46:06 04/18/2010 09:19:57 [id number] FRANKO [facility], OFFICE 70 [place] ONE[place] 6 06/09/2010 14:40:41 06/12/2010 09:51:34 [id number] FRANKO [facility], OFFICE [address] [place] [address] 09/09/2010 12:21:55 09/13/2010 12:07:02 [id number] FRANKO [facility], OFFICE 70 [place] 6 01/18/2011 16:27:53 01/22/2011 08:37:10 [id number] FRANKO [facility], OFFICE 70 [place] ONE[place] 6 02/07/2011 15:45:56 02/09/2011 10:42:53 [id number] FRANKO [facility], OFFICE 70 [place] 6 02/20/2011 09:12:18 02/22/2011 09:23:32 [id number] FRANKO [facility], OFFICE 70 [place] 6 02/26/2011 10:29:49 02/27/2011 14:00:13 [id number] FP, [facility], OFFICE [address] [place], S[place] Paul[address] 03/07/2011 10:28:05 03/09/2011 08:40:46 [id number] FP, [facility], OFFICE [address] [place], SOUN Paul[address] 03/28/2011 14:53:11 03/29/2011 10:06:36 [id number] FP, [facility], OFFICE 70 [place] 6 05/13/2011 09:40:13 05/13/2011 10:11:20 [id number] FP, [facility], OFFICE [address] [place], S[place] Paul[address] 6 05/23/2011 14:58:08 05/23/2011 15:28:50 [id number] FP, [facility], OFFICE [address] [facility] [place], [place] [address] 05/30/2011 15:12:19 05/30/2011 15:39:54 [id number] FP, [facility], OFFICE [address] [place], [place] [address] 06/15/2011 09:27:02 06/18/2011 11:58:32 [id number] Radiology , VAC 70 [place]62[address] 6 08/09/2011 10:57:20 08/10/2011 12:04:08 [id number] FP, [facility], OFFICE [address] [facility] [address] [place], [place] [address] 08/09/2011 11:24:36 08/10/2011 08:59:25 [id number] FP, [facility], OFFICE 70 [facility] [place]ON[place] 6 09/05/2011 15:47:18 09/07/2011 09:03:03 [id number] FP, [facility], OFFICE [address] [place], [place] [address] 12/24/2011 16:10:22 12/24/2011 16:41:25 [id number] FP, [facility], OFFICE [address] [place], SON[place] Paul[address] 6 01/02/2012 15:17:18 01/02/2012 16:01:26 [id number] FP, [facility], OFFICE 70 [facility] [place] SON[place]62[address] 6 02/20/2012 11:47:36 02/21/2012 10:06:54 [id number] FRANKO [facility], OFFICE [address] [place] [address] 02/28/2012 15:26:37 02/29/2012 08:24:19 [id number] FRANKO [facility], OFFICE [address] [place] [address] 6 03/27/2012 11:27:30 03/27/2012 11:58:47 [id number] FRANKO [facility], OFFICE [address] [place] [address] 6 05/22/2012 16:00:31 05/23/2012 10:13:25 [id number] FRANKO [facility], OFFICE [address] [place] [address] 6 05/27/2012 16:24:54 05/28/2012 12:48:23 [id number] MD FRANKO Milian [facility], OFFICE [address] [place] [address] 08/26/2012 13:46:36 08/26/2012 14:18:22 [id number] Claudette ABDUL [facility], OFFICE [address] [place] [address] 6 09/02/2012 10:43:50 09/03/2012 14:05:42 [id number] SIMON Barrera [facility], OFFICE [address] [place] [address] 10/06/2012 15:56:03 10/06/2012 16:37:30 [id number] Claudette ABDUL [facility], OFFICE [address] [place] [address] 10/15/2012 09:52:23 10/16/2012 12:54:52 [id number] MD FRANKO Sotelo [facility], OFFICE [address] [place] [address] 10/18/2012 09:49:09 10/20/2012 13:17:23 [id number] Claudette ABDUL [facility], OFFICE [address] [place] [address] 6 11/05/2012 10:46:36 11/06/2012 11:24:05 [id number] FRANKO [facility], OFFICE [address] [place] [address] 04/06/2013 11:19:58 04/07/2013 13:17:17 [id number] [facility], OFFICE [address] [place] [address] 06/10/2013 06:21:35 06/10/2013 16:25:35 Influenza vaccine needed [id number] [facility] OFF[facility] [address] [place] [address] 08/12/2013 11:54:44 08/13/2013 10:15:52 Impacted cerumen [id number] successful IRRIGATION DONE, f/u prn, [id number] Binta Lam MA , [facility], OFFICE [address] [place] [address] 08/19/2013 16:26:04 08/24/2013 10:18:40 Bursitis of shoulder [id number] Patient with clinical presentati on of left [...] contact the clinic if her symptoms worsen. [id number] Claudette Franco [facility], OFFICE [address] [place] [address] 10/07/2013 10:12:00 10/08/2013 09:45:51 Contusion of chest [id number] tylenol, heat or ice, rest, reassuranc e [id number] [facility] OFFICE [address] [place] [address] 12/28/2013 14:42:12 12/29/2013 09:52:41 Irritable bowel syndrome [id number] I still think she has mild IBS. avoid possible offending foods like fatty foods, tomatos products, dairy. call if not settling down. [id number] Jericho Laureano , [facility], OFFICE [address] [place] [address] 03/29/2014 13:59:52 03/30/2014 16:21:31 Dysuria [id number] resolved. never sure she had UTI- as there was never a urinanalys is at first before med. in hospital-h ad microscpic blood in urine but culture was negative.a nd repeat u/a neg she couldhave had a viral infection or partially treated uti. plan stop ceftin today. and follow I review hosptial labs and H and P. [id number] Kathie schmitt , [facility], OFFICE [address] [place] [address] 04/15/2014 14:58:21 04/16/2014 09:36:29 Adult health examination [id number] see Risk Assessment and Lifestyle Change Counseling section above Counseling [id number] Osteoporosis [id number] se cristobalng Dr. Murray. urge weight bearing exericses Gastroesop hageal reflux disease [id number] controlled nexium otc [id number] CANDY Otto , [facility], OFFICE [address] [place] [address] 06/29/2014 10:48:45 06/30/2014 08:34:30 Strain of muscle of face [id number] probable muscular strain of left side of face, advised to use ice to affected area several times a day, ibuprofen 200 mg 3 tablets 3 times a day and if no improvemen t in the next 5-7 days return to office for further reevaluati on. [id number] Calos Valiente MD , [facility], OFFICE [address] [place] [address] 10/27/2014 11:12:18 11/04/2014 12:55:15 Urinary tract infectious disease [id number] recurrent due to postmenopa usal- not present now- could try to treat self next time gets typical sx. If not better, call . could consider estrogen cream. no sx now rx given, if needs in future. 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 going to [facility] tomorrow Impacted cerumen [id number] successful IRRIGATION DONE, f/u prn, [id number] Lex Whelan MD , [facility], [address] [place] [address] 04/08/2015 16:13:28 04/08/2015 17:32:38 Carpal tunnel syndrome [id number] Binta Lam MA , [facility], [address] [place] [address] 04/18/2015 11:36:54 04/18/2015 12:27:32 Adult health examination 815000099 see Risk Assessment and Lifestyle Change Counseling section above Counseling [id number] Active or passive immunization 690430729 Malignant melanoma of eye 250615011 [facility] abnormal [id number] there is a small nodule found on CT scan. [facility] wants repeat CT scan in three months Senile hyperkeratosis 285144544 on neck ret for removal md at [facility] wants it removed.It isn't malignant. [id number] Neeta Franks , [facility], [address] [place] [address] 05/18/2015 12:10:39 05/19/2015 12:07:05 Senile hyperkeratosis 355722433 cryo and curettage done [id number] Viral Baig MD , [facility], [address] [place] [address] 08/28/2015 10:00:58 08/28/2015 10:25:37 Diverticulitis of colon 869407845 K57.32 [id number] Calos Valiente MD , [facility], [address] [place] [address] 08/31/2015 13:20:53 08/31/2015 14:10:01 Left lower quadrant pain 934904266 R10.32 possible mild diverticul tis. add flagyll. call next week with progress note. couldn't giveadequa te amount of urine. if not better in 2 days- get urine dip and micro and u/c to r/o stones and infection [id number] Neetajared Franks , [facility], [address] [place] [address] 10/12/2015 12:07:23 10/13/2015 13:48:26 Irritable bowel syndrome 43193578 K58.9 I still think she has mild IBS. try colace for constipati on. cont culturelee . and veggies. [id number] Calos Valiente MD , [facility], [address] [place] [address] 04/19/2016 10:14:44 04/19/2016 11:01:52 Adult health examination [id number] Z00.00 see Risk Assessment and Lifestyle Change Counseling section above Counseling [id number] Z71 .9 Gastroesop hageal reflux disease 460501497 K21.9 controlled with omeprazole Osteoporosis 94556798 M8 1.[address] Murray. urge weight bearing exericises Malignant melanoma of eye 119885943 C69.90 being treated at [facility] needs lft's tested for melanoma Irritable bowel syndrome 69963037 K58.9 controled with current diet [id number] Calos Valiente MD , [facility], [address] [place] [address] 05/02/2016 13:43:07 05/08/2016 13:54:13 Pain of shoulder region 98283586 M25.512 maybe mild impingemen t syndrome - getting better on own plan try nsaid. ret prn Impacted cerumen 5647271 6 H61.23 successful IRRIGATION DONE, f/u prn, [id number] Calos Valiente MD , [facility], [address] [place] [address] 07/04/2016 11:10:41 07/04/2016 11:44:33 Active or passive immunization 076547231 Z23 Chest wall pain 33438823 6 R07.89 soft tissue bruise probably from tight bra- recommend larger bra until loses weight [id number] [facility], [address] [place] [address] 09/25/2016 12:13:03 09/25/2016 12:59:28 Irritable bowel syndrome 35734872 K58.9 try eliminatin g fructans and galacto-ol iosacchari dse no wheat , barley oats. 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 follow [id number] Calos Valiente MD , [facility], [address] [place] [address] 04/22/2017 11:35:56 04/22/2017 12:24:28 Adult health examination 747485832 Z00.00 see Risk Assessment and Lifestyle Change Counseling section above Counseling 618742220 Z71 .9 Irritable bowel syndrome 60637668 K58.9 better with certain dietary restrictio ns Malignant melanoma of eye 564856656 C69.90 see opth in [place] Osteoporosis 08004618 M8 1.[address] Murray. urge weight bearing exericises [id number] Lex Whelan MD , [facility], [address] [place] [address] 06/04/2017 16:35:56 06/04/2017 17:17:19 Hordeolum externum of upper eyelid 430614030 H00.876 [id number] Yazmin Pedraza LPN , [facility], [address] [place] [address] 06/06/2017 16:15:53 06/07/2017 08:24:28 Active or passive immunization 971994344 Z23 [id number] Calos Valiente MD , [facility], [address] [place] [address] 07/02/2017 11:12:18 07/03/2017 10:13:51 Irritable bowel syndrome 85566216 K58.9 tried various dietary restrictio n and fiber supplement s, TTG neg. 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 on probiotics - get GI input besides due for another colonoscop y Internal hemorrhoids 904 00953 K64.8 continue proctozone [id number] Calos Valiente MD , [facility], [address] [place] [address] 10/21/2017 11:42:26 10/21/2017 12:36:17 Irritable bowel syndrome 48929824 K58.9 quiet now Malignant melanoma of eye 919067011 C69.90 see opth in [place] Osteoporosis 70420607 M8 1.[address] Estrada Gastroesop hageal reflux disease 334655213 K21.9 PPI qd but take one day off a week [id number] Tru Roberts MD [facility], [facility] [address] [place] [address] 11/14/2017 08:53:54 11/14/2017 13:51:26 [id number] Sawyer Estrada MD Endocrino log, [facility] [address] [place] [address] 04/30/2018 14:51:37 04/30/2018 16:15:53 Osteoporosis 16481743 M81.0 -reassess bone density test -dairy 3 times daily -practice balance by dancing -ca 600 +d tab, 1/2 tab am and 1/2 tab pm -vit d 1000units tabs, 2 tab winter, 1 summer Vitamin D deficiency 347 04052 E55.9 [id number] BOOM Steele , [facility], [address] [place] [address] 07/02/2018 13:41:37 07/02/2018 14:24:34 Active or passive immunization 118030229 Z23 Strain of muscle and/or tendon of lower leg 667431584 S86.911A ankle strain- rest, rom exercises Injury of finger 7100033 8 S69.92XA strst, rom exercise- f/u if not improving in coming 1-2 wkseain- [id number] Sawyer Estrada MD Endocrino logy, [facility] [address] [place] [address] 07/16/2018 10:45:31 07/16/2018 11:47:48 Osteoporosis 44725896 M81.0 -reassess bone density test -dairy 3 times daily -practice balance by dancing -limit calcium to 250mg via supplement -vit d 1000units tabs, 2 tab winter, 1 summer Vitamin D deficiency 347 97972 E55.9 [id number] Ty Sams MD , [facility], [address] [place] [address] 08/13/2018 15:28:45 08/13/2018 16:22:01 Adult health examination 730703072 Z00.00 see Risk Assessment and Lifestyle Change Counseling section above Counseling 193609056 Z71 .9 Depression screening 171 168644 Z13.89 depression screening tool administer ed, entered into emr, scored and discussed, time greater than 7.5 minutes Solitary n odule of lung 981161697 R91.1 f/u ct with no change out far enough to consider benign Malignant melanoma of eye 084110907 C69.90 followed by [facility] Gastroesop hageal reflux disease 335249179 K21.9 continue pantaprazo le Pre-surger y evaluation 523096662 Z01.818 clear for eye surgery [id number] Sawyer Estrada MD Endocrino logy, [facility] [address] [place] [address] 01/21/2019 10:17:59 01/21/2019 11:16:38 Osteoporosis 31287257 M81.0 -dairy or dairy replacemen t 2 times daily-spin ach-practi ce balance by dancing - no calcium supplement s-vit d 1000units tab, 2 tab winter, 1 summer -labs, if normal, ask me to order to order prolia, then authorize prolia to be sent to [facility] for administra tion, then book appointmen t with endocrine nurse to administer every 6mo Vitamin D deficiency 347 80265 E55.9 [id number] Sawyer Estrada MD Endocrino logy, [facility] [address] [place] [address] 07/29/2019 10:25:03 07/29/2019 13:23:12 Osteoporosis 54604051 M81.0 -add risedronat e 35 mg by mouth once weekly with a full glass of water on an empty stomach while sitting or standing; do not lie down after taking risedronat e for at least 1h -soy milk or other replacemen t dairy once daily, almonds-ad d kale-aim for calcium 1000mg via diet then recheck urine calcium 24h Vitamin D deficiency 347 83263 E55.9 -vitamin d 1000units by mouth once daily Health Concerns Section Related Observation LastModified by Organization Detai ls LastModified Time None Recorded Concern Status LastModified by Organization Details LastModified Time None Recorded Advance Directives Directive N: Payers Encounter Date Sequence Insurance Name Policy Number Policy Tamayo Covered Member ID Tamayo Member ID Guarantor Name 07/02/2018 1 MEDICARE B-[place]: [employer] Irene Porter [id number] Irene Porter 07/02/2018 2 [employer] OPTIONS - PLAN T2 (INDEMNITY) Irene Porter [id number] Irene Porter 07/16/2018 1 MEDICARE B-DC: [facility] Irene Porter [id number] Irene Porter 07/16/2018 2 [employer] OPTIONS - PLAN T2 (INDEMNITY) Irene Porter [id number] Irene Porter 08/13/2018 1 MEDICARE B-DC: [facility] Irene Porter [id number] Irene Porter 08/13/2018 2 [employer] OPTIONS - PLAN T2 (INDEMNITY) Irene Porter [id number] Irene Porter 01/21/2019 1 MEDICARE B-DC: [facility] Irene Porter [id number] Irene Porter 01/21/2019 2 [employer] OPTIONS - PLAN T2 (INDEMNITY) Irene Porter [id number] Irene Porter 07/29/2019 1 MEDICARE B-DC: [facility] Irene Porter [id number] Irene Porter 07/29/2019 2 [employer] OPTIONS - PLAN T2 (INDEMNITY) Irene Porter [id number] Irene Porter Notes Date Note Type Note Provider Name and Address Organization Details Recorded Time 07/02/2018 text/html AFTER GARDENING 4 days ago, R foot pain and left 3rd finger had been hurting x > month. no swelling, Irene Sams, BOOM [address] [place] [address], [phone], [facility] 07/05/2018 14:22:41 07/16/2018 [...] return as needed. she Sawyer Estrada MD [address] [place] [address], [phone], [facility] 07/16/2018 11:51:02 08/13/2018 text/html Physical Exam/FemaleReported bypatient.PHAPatient is here for a Wellness Visit. She describes her health status as fair. Patient's health is worse than last year.Notes:being treated for melanoma right eye at [facility]-is scheduled for surgery nd [...] milk- IBS is better Ty Sams MD [address] [place] [address], [phone], [facility] 08/21/2018 15:29:01 01/21/2019 [...] no bone breaks lately Sawyer Estrada MD [address] [place] [address], [phone], [facility] 01/21/2019 10:59:03 07/29/2019 [...] 600mg calcium once daily Sawyer Estrada MD [address] [place] [address], [phone], [facility] 07/29/2019 11:14:10 OBGyn Episode No OBEpisode recorded.
== END 2025-01-18 13:22 | disposition home or self-care (01) ==
LOC: HO.ENCR 12:50
PROVIDERS: PCP Internal Medicine; Visit Provider Internal Medicine Endocrinology, Diabetes & Metabolism
DX: M81.0 Age-related osteoporosis without current pathological fracture (principal)
CPT/HCPCS: 99213

== ENCOUNTER → 2025-01-18 12:49 | Outpatient (BNVA) | payer MEDICARE, SELFPAY | PROVIDERS: PCP Internal Medicine; Visit Provider Internal Medicine Endocrinology, Diabetes & Metabolism | DX: M81.0 Age-related osteoporosis without current pathological fracture (principal) | CPT/HCPCS: 99212 ==

== ENCOUNTER 2025-03-09 12:19 | Outpatient (AMB) | payer MEDICARE, SELFPAY ==
--- NOTE | 2025-03-09 12:31 | A.OFFPC_ITS ---
Vital Signs 03/09/25 12:38 Height 4 ft 10.85 in Weight 133 lb BMI 27.0 BP 122/70 Blood Pressure Location Lt brachial Position Sitting Pulse 79 Pulse Source Pulse Oximeter Pulse Oximetry (%) 95 Oxygen Delivery Method Room Air Intake Visit Reasons: Transfer of care from Dr. Clarke Paperhanger Required: No Accompanied by: Self / Same As Patient Allergies aspirin [ASA] Allergy (Intermediate, Verified 03/09/25 12:34) TACHYCARDIA buspirone [From BuSpar] Allergy (Unknown, Verified 03/09/25 12:34) Stomach Upset Sulfa (Sulfonamide Antibiotics) [SULFA(SULFONAMIDE ANTIBIOTICS)] Adverse Reaction (Intermediate, Verified 03/09/25 12:34) VOMITING chlorthalidone Adverse Reaction (Unknown, Verified 03/09/25 12:34) Stomach pain, loss of appetite Tobacco use date assessed: 03/09/25 Fall risk assessment: No Falls in past year Last assessed Fall Risk: 03/09/25 Dental Screening Dental Screen Date: 03/09/25 Did you have a dental visit in the last 12 months?: No Did you have a dental problem in the last 6 months where you did not have access to dental care?: No Was dental information given to patient?: Patient declined HPI Transfer of care from Dr. Clarke HPI Details Chief Complaint The patient presents for management of chronic conditions including hypercalcemia and osteoarthritis. History of Present Illness The patient is an 84-year-old female presenting with the management of multiple chronic conditions. She has a history of hypercalcemia and osteoporosis, for which she sees an highway safety engineer. Her osteoporosis is managed with regular follow-ups, and she has been stable with her current treatment regimen. The patient also has a history of melanoma choroid right eye, which is currently stable. She has been under the care of multiple specialists for her right eye condition, which is stable at present. 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 The current status of these conditions is not detailed in the conversation. The patient has chronic back issues, including compression deformities of the lumbar spine since 2019, retrolisthesis at L2-L3, and lumbar disc degeneration. She also has osteoarthritis, particularly affecting her hands, and is considering starting meloxicam pending lab results. Social History - Diet: The patient consumes fish and me at. Health Maintenance Review of Systems denies any fevers, chills, n/v, cp, sob, will, dizziness. Physical Exam General: Cooperative, healthy appearing, comfortable, no acute distress and well developed Orientation: Patient oriented x3 Limitations: No limitations Head: Normal to inspection Ears: Hearing grossly normal bilaterally Nose: Normal external nose present Face and sinus: Normal facial exam Eyes: right eye with scleral erythema, cloudy. Neck: Normal visual inspection and Yes full ROM Respiratory: Normal respiratory effort and able to speak in complete sentences. Clear to auscultation bilaterally Cardiovascular: Regular rate and rhythm. Normal S1 and S2 GI: Normal to inspection. Soft to palpation and nontender Skin: No rashes or lesions noted Neuro: Patient oriented x3 Extremities: Trace edema to bilateral extremities Results Plan The plan includes managing the patient's chronic conditions with a focus on her hypercalcemia and osteoporosis, ensuring regular follow-ups with her highway safety engineer. For her osteoarthritis, the initiation of meloxicam is considered, pending baseline lab results to ensure safety. The patient's back issues, including lumbar spine deformities and osteoarthritis, will be monito red, and appropriate pain management strategies will be discussed. Discussion Notes I discussed with the patient the management of her chronic conditions, emphasizing the importance of regular follow-ups with her specialists. We considered starting meloxicam for her osteoarthritis, pending lab results to ensure it is safe to proceed. Patient Instructions - Continue regular follow-ups with your highway safety engineer for hypercalcemia and osteoporosis management. - Await lab results before starting reynaga xicam for osteoarthritis. [facility] Medical History Idiopathic hypercalciuria Vitamin D deficiency Ingrown toenail of right foot Hip fracture, right Multinodular goiter Osteoporosis Melanoma, choroid Surgical History History of lobectomy of thyroid Hx of cholecystectomy H/O colonoscopy Family History Father No problems noted. Mother No problems noted. Social History Housing: House Alcohol intake: never Patient Tobacco Use Status: Never used Tobacco e-Cigarette/Vaping Use: Never Used Second Hand Smoke Exposure: No Current occupational status: retired Cognitive needs: No Hearing needs: No Vision needs: Yes Questionnaire PHQ-9 Over the last 2 weeks, how often have you been bothered by any of the following problems? 1. Little interest or pleasure in doing things: not at all 2. Feeling down, depressed, or hopeless: not at all 3. Trouble falling or staying asleep, or sleeping too much: not at all 4. Feeling tired or having little energy: not at all 5. Poor appetite or overeating: not at all 6. Feeling bad about yourself - or that you are a failure or have let yourself or your family down: not at all 7. Trouble concentrating on things, such as reading the newspaper or watching television: not at all 8. Moving or speaking so slowly that other people could have noticed. Or the opposite - being so fidgety or restless that you have been moving around a lot more than usual: not at all 9. Thoughts that you would be better off or of hurting yourself in some way: not at all Total score: 0 Depression Screening Interpretation: Negative Depression Screening Done: Yes 24095 - PHQ-9 Billing: Yes Source: Developed by Drs. Frank Estrada, Lorena Macias, Serafin De Dios and colleagues, with an educational maggie from [employer]. Thrive Questionnaire Date Thrive assessed: 03/09/25 I am a: Patient What is your living situation today?: I have a steady place to live Within the past 12 months, did the food you bought not last and you didn't have the money to get more?: I choose not to answer this question Within the past 12 months, did you worry whether your food would run out before you got money to buy more?: I choose not to answer this question Do you have trouble paying for medicines?: No Do you have trouble getting transportation to medical appointments?: No Do you have trouble paying your heating and electricity bill?: No Do you have trouble taking care of your child, family member or friend?: No Do you have trouble with day-to-day activities such as bathing, preparing meals, shopping, managing finances, etc.?: No Are you currently unemployed and looking for a job?: No Are you interested in more education?: No Please select the resources that you would like help with: None Currently or been in a relationship where the following occur: No concerns reported THRIVE Score: 0 AUDIT C Alcohol Use Questionnaire (AUDIT-C) 1. How often do you have a drink containing alcohol?: Never 3. How often do you have six or more drinks on one occasion?: Never Total Score: 0 Score Reviewed/Action Taken: Yes LAUREN-7 AMB Questionnaire LAUREN-7 Date LAUREN - 7 assessed: 03/09/25 Feeling nervous, anxious, or on edge: 0 = Not at all Not being able to stop or control worryin = Not at all Worrying too much about different things: 1 = Several days Trouble relaxin = Not at all Being so restless that it is hard to sit still: 0 = Not at all Becoming easily annoyed or irritable: 1 = Several days Feeling afraid as if something awful might happen: 0 = Not at all Total LAUREN-7 score (0-4 normal; 5-9 mild; 10-14 moderate; 15-21 severe): 2 Source: Developed by Drs. Frank Estrada, Lorena Macias, Serafin De Dios and colleagues, with an educational maggie from [employer]. LAUREN-7 Assessment Billing LAUREN-7 Assessment Tool: LAUREN-7 Assessment 04176 Physical exam (Primary Care) Vital Signs: Last Vital Signs Pulse 79 03/09/25 12:38 BP 122/70 03/09/25 12:38 Pulse Ox 95 03/09/25 12:38 Oxygen Delivery Method Room Air 03/09/25 12:38 BMI result Body Mass Index 27.0 Tobacco/Smoking Status: Tobacco use Status Tobacco use date assessed 03/09/25 03/09/25 12:36 Patient Tobacco Use Status Never used Tobacco 03/09/25 12:34 e-Cigarette/Vaping Use Never Used 03/09/25 12:34 PHQ-9: PHQ-9 Score PHQ-9: Total score 0 03/09/25 12:34 Depression Screening Interpretation: Negative Thrive Assessment: Date of Thrive Assessment Date Thrive assessed 03/09/25 03/09/25 12:34 Currently or been in a relationship where the following occur: No concerns reported Coding Level of Care Code Est Pt Level 3 (45206) Diagnoses Chronic lower back pain M54.50; G89. Additional Codes LAUREN-7 Assessment Billing - LAUREN-7 Assessment Tool: LAUREN-7 Assessment 87256 ([id number]) PHQ-9 - 23242 - PHQ-9 Billing: Yes ([id number]) Assessment & Plan Assessment & Plan (1) Chronic lower back pain: Code(s): M54.50 - Low back pain, unspecified; G89.29 - Other chronic pain Category: Medical Plan . Orders: Orders Complete Blood Count Auto Diff Today . - Other chronic pain, M54.50 - Low back pain, unspecified UA CC w/rflx Micro + Cult Today . - Other chronic pain, M54.50 - Low back pain, unspecified Comprehensive [place]. Panel Fast Today . - Other chronic pain, M54.50 - Low back pain, unspecified TSH reflex Free T4 Today 89. - Other chronic pain, M54.50 - Low back pain, unspecified Lipid Panel Today . - Other chronic pain, M54.50 - Low back pain, unspecified Medications: Refilled indapamide 1.25 mg PO QAM 30 tabs 11RF R82.994 - Hypercalciuria indapamide 1.25 mg PO QAM 30 tabs 11RF R82.994 - Hypercalciuria
[2025-03-09 12:38] VITALS: BP 122/70; PULSE 79; O2SAT 95; BMI 27.0
--- OUTSIDE RECORDS SUMMARY | 2025-03-09 13:56 | XMS_ITS ---
Author Organization [facility] Address [address] [place] [address] Care Team Providers Care Diamond Wheel Edger Name Role Phone Anjelica Clarke MD Primary Care Provider Frank Mccoy [phone] REASON FOR VISIT acid reflux Encounters Encounter Location Date Provider Diagnosis [facility] [address] [place] [phone] 01/12/2025 Frank Avila Plan Of Treatment No Information Progress Notes * ROCIO HENSONDOB:1940 (84 yo F)Acc No.[id number]:01/12/2025 Patient:?ROCIO HENSON :1940???Age:84 Y???Sex:Female Address: [address] [facility] [place], [address] * true * Date:? Generated for Lisai nitin/Morro/eTransmitting on:?03/09/2025 01:56 PM EDT
== END 2025-03-09 13:27 | disposition home or self-care (01) ==
LOC: HO.HMCC 12:20
PROVIDERS: PCP Internal Medicine; Visit Provider Nurse Practitioner Family
DX: M54.50 Low back pain, unspecified (principal); G89.29 Other chronic pain

== ENCOUNTER → 2025-03-09 12:19 | Outpatient (BNVA) | payer MEDICARE, SELFPAY | PROVIDERS: PCP Internal Medicine; Visit Provider Nurse Practitioner Family | DX: M54.50 Low back pain, unspecified (principal); G89.29 Other chronic pain; R82.994 Hypercalciuria | CPT/HCPCS: 96127; 99212 ==

== ENCOUNTER 2025-03-17 13:34 | Outpatient (AMB) | payer MEDICARE, SELFPAY ==
--- NOTE | 2025-03-17 13:35 | MHC.OFFVIS ---
Vital Signs 03/17/25 13:36 03/17/25 13:36 Height 4 ft 10.85 in Weight 133 lb 133 lb BMI 27.0 Intake Visit Reasons: New prob- Left IF cyst Intake Note: Irene is a 84 year old right hand dominant female who presents today for a new problem visit for evaluation of a left 2nd digit mass. Patient states she has had this cyst for approximately 6 months. States no inury had occured, and cyst is on second MCP. Allergies aspirin (ASA) Allergy (Intermediate, Verified 03/17/25 13:48) TACHYCARDIA buspirone (From BuSpar) Allergy (Unknown, Verified 03/17/25 13:48) Stomach Upset Sulfa (Sulfonamide Antibiotics) (SULFA(SULFONAMIDE ANTIBIOTICS)) Adverse Reaction (Intermediate, Verified 03/17/25 13:48) VOMITING chlorthalidone Adverse Reaction (Unknown, Verified 03/17/25 13:48) Stomach pain, loss of appetite HPI HPI New prob- Left IF cyst: Details: Irene is a 84 year old right hand dominant female who presents today for a new problem visit for evaluation of a left 2nd digit mass. Patient states she has had this cyst for approximately 6 months. States no inury had occured, and cyst is on second MCP. The patient also reports locking and catching of the right middle finger, and that this bothers her more than her cyst. No other acute complaints or concerns at this time. [facility] Medical History Idiopathic hypercalciuria Vitamin D deficiency Ingrown toenail of right foot Hip fracture, right Multinodular goiter Osteoporosis Melanoma, choroid Surgical History History of lobectomy of thyroid Hx of cholecystectomy H/O colonoscopy Family History Father No problems noted. Mother No problems noted. Social History Housing: House Alcohol intake: never Patient Tobacco Use Status: Never used Tobacco e-Cigarette/Vaping Use: Never Used Second Hand Smoke Exposure: No Current occupational status: retired Cognitive needs: No Hearing needs: No Vision needs: Yes Review of Systems Const All systems reviewed & are unremarkable except as noted in HPI and below Physical Exam Vital Signs: BMI result Body Mass Index 27.0 Extrem Other: Patient is alert, oriented, and in no acute distress. Neuro: Normal sensation of the tips of all digits of the right hand at this time Vascular: Cap refill brisk Pain: Significant tenderness to palpation of the A1 héctor of the right middle finger Pain with range of motion of the right middle finger ROM: Visible and palpable locking and catching of the right middle finger Patient was able to make a closed fist and extend all digits of the right hand fully Skin: No lacerations or abrasions. General: No ecchymosis, erythema, or evidence of infection. Psych: Appears grossly normal Affect normal Attitude cooperative Assessment & Plan Assessment & Plan (1) Trigger finger, right middle finger: Code(s): M65.331 - Trigger finger, right middle finger Category: Medical Plan 1. Trigger finger, right middle finger I educated the patient about the condition. I discussed both operative and nonoperative treatment options. The patient would like to proceed with surgery. The risks and benefits of operative treatment were discussed with the patient and the patient wishes to proceed with surgery. These risks include, but are not limited to, risk of damage to blood vessels, nerves, tendons, infection, recurrence, incomplete relief of preoperative symptoms, persistent pain, possible need for further surgery, and the risks associated with regional blocks and/or anesthesia. Plan is to take the patient to the operating room at some point in the next few weeks for the following procedures: 1. Right middle finger trigger release All of the preoperative paperwork including the consent was discussed today. All of the patient's questions were answered in the clinic today. The patient understands that they will be in contact with our certified ophthalmic surgical assistant to discuss scheduling their procedure. Patient denies diabetes, blood thinners, asthma, heart issues, lung issues, kidney issues, or current smoking. Coding Level of Care Code Est Pt Level 4 (62191) Diagnoses Trigger finger, right middle finger M65.331
[2025-03-17 13:36] VITALS: BMI 27.0
--- OUTSIDE RECORDS SUMMARY | 2025-03-17 15:59 | XMS_ITS | Patient Health Record ---
Author Organization [facility] Address [address] [place] [id number] Care Team Providers Care Informatica Architect Name Role Phone Anjelica Clarke MD Primary Care Provider Frank Mccoy Unavailable [phone] Allergies Allergen (clinical drug ingredient) Drug/Non Drug [...] Status Risk Notes Problem Irritable bowel syndrome (51449943) Irritable bowel syndrome (K58.9) Active confirmed Problem 841547202 Gastroesophageal reflux disease, esophagitis presence not specified (K21.9) Active confirmed Problem Hiatal hernia (27629835) Hiatal hernia (K44.9) Active confirmed Problem 89988294 Constipation, unspecified constipation type (K59.00) Active confirmed Problem Gastroesophageal reflux disease (142219606) GERD (gastroesophageal reflux disease) (K21.9) Active confirmed Problem [id number] Abnormal gallbladder ultrasound (R93.2) Active confirmed Problem 018144217 Left lower quadrant abdominal pain (R10.32) Active confirmed Encounters Encounter Location Date Provider Diagnosis [facility] [address] [place] [address] 01/12/2025 Frank Avila Plan Of Treatment Future Test Test Name Order Date UPPER GI ENDOSCOPY 04/26/2020 Insurance Providers Payer Name Payer Address Payer Phone Subscriber Number Group Number Insured Name Patient Relationship to Insured Coverage Start Date Coverage End Date MED[place]ARE OF [place] [address] [place] [address] [phone] [id number] ROCIO HENSON Self - patient is the insured [facility] SUPPLEMENTAL PLAN [address] [place], [place] [id number] [id number] ROCIO HENSON Self - patient is the insured Medical (General) History Medical History History ICD Code Denies DE,DM,CVA,Lung disease,renal dise ase She reports three previous c olonoscopies with the [place] [facility]--she reports a hx of colon [...] any sign of malignancy Partial thyroidectomy at [facility] in [facility] 2021 for benign lesion
== END 2025-03-17 14:04 | disposition home or self-care (01) ==
LOC: HO.HOS 13:35
PROVIDERS: PCP Internal Medicine
DX: M65.331 Trigger finger, right middle finger (principal)
CPT/HCPCS: 99214

== ENCOUNTER → 2025-03-17 13:34 | Outpatient (BNVA) | payer MEDICARE, SELFPAY | PROVIDERS: PCP Internal Medicine | DX: M65.331 Trigger finger, right middle finger (principal) | CPT/HCPCS: 99212 ==

== ENCOUNTER 2025-04-06 08:53 | Outpatient (REF) | payer MEDICARE, SELFPAY ==
--- OUTSIDE RECORDS SUMMARY | 2025-04-06 09:08 | XMS_ITS | Patient Health Record ---
Author Organization [facility] Address [address] [place] [address] Care Team Providers Care Roll Repairer Name Role Phone Anjelica Clarke MD Primary Care Provider Frank Mccoy Unavailable [phone] Allergies Allergen (clinical drug ingredient) Drug/Non Drug [...] Status Risk Notes Problem Irritable bowel syndrome (82276742) Irritable bowel syndrome (K58.9) Active confirmed Problem 403754226 Gastroesophageal reflux disease, esophagitis presence not specified (K21.9) Active confirmed Problem Hiatal hernia (21445485) Hiatal hernia (K44.9) Active confirmed Problem 78540346 Constipation, unspecified constipation type (K59.00) Active confirmed Problem Gastroesophageal reflux disease (557724629) GERD (gastroesophageal reflux disease) (K21.9) Active confirmed Problem [id number] Abnormal gallbladder ultrasound (R93.2) Active confirmed Problem 269993187 Left lower quadrant abdominal pain (R10.32) Active confirmed Encounters Encounter Location Date Provider Diagnosis [facility] [address] [place] [address] 01/12/2025 Frank Avila Plan Of Treatment Future Test Test Name Order Date UPPER GI ENDOSCOPY 04/26/2020 Insurance Providers Payer Name Payer Address Payer Phone Subscriber Number Group Number Insured Name Patient Relationship to Insured Coverage Start Date Coverage End Date [place] [address] [place] [address] [phone] [id number] ROCIO HENSON Self - patient is the insured [facility] SUPPLEMENTAL PLAN [address] [place], [place] [id number] ROCIO HENSON Self - patient is the insured Medical (General) History Medical History History ICD Code Denies [place],DM,CVA,Lung disease,renal dise ase She reports three previous c olonoscopies with the [place] [facility] MD's--she reports a hx of colon [...] thyroidectomy at [facility] in [facility] 2021 for benign lesion
--- OUTSIDE RECORDS SUMMARY | 2025-04-06 09:08 | XMS_ITS | Data Portability ---
Author Organization [facility], [facility] Address [address] [place] [address] Care Team Providers Care Scalper Operator Name Role Phone NIELS SAMS Primary Care Provider Assessment Encounter Date [...] bone density and osteoporosis. I reviewed Dr. Murray s 08/06/16 note, at which time a [...] consistent with stable osteoporosis. I reviewed Dr. Murray s 08/06/16 note, at which time a [...] consistent with stable osteoporosis. I reviewed Dr. Murray s 08/06/16 note, at which time a [...] 24-hour urine 2018 019 [facility], [address] [place] [address], [address], 9 21:12:19 creatinine , 24-hour urine 2018 019 [facility], [address] [place] [address], [address], 9 21:12:21 PTH (parathyro id hormone), intact, serum or plasma 2018 019 [facility], [address] [place] [address], [address], 9 14:18:39 magnesium, serum or plasma 2018 019 [facility], [address] [place] [address], [address], 9 14:55:30 TSH, serum or plasma 2018 019 [facility], [address] [place] [address], [address], 9 14:18:39 vitamin D, 25-hydroxy , total, serum 2018 019 [facility], [address] [place] [address], [address], 9 14:18:40 renal function panel, serum 2018 019 [facility], [address] [place] [address], [address], 9 14:55:29 Referral None recorded. Procedures None recorded. Surgeries None recorded. Imaging US, liver 2017 018 [facility]), [address], [place], [address], 8 11:16:52 Medication Orders risedronat e 35 mg tablet 2018 019 INTERFACE [id number], [address] [place], [place], [id number], 9 11:10:03 Patient TargetsNo targets recorded. Patient Instructions Encounter Date Encounter Id Patient Instructions Last Modified By Organization Details Last Modified Time 08/13/2018 [id number] advance directives: care instructions [email or web address] Not available 08/13/2018 15:50:35 preventing falls : care instructions sesrick Not available 08/13/2018 15:50:35 hearing loss: care instructions sesrick Not available 08/13/2018 15:50:35 well visit, over 65: care instructions sesrick Not available 08/13/2018 15:50:35 Reason for Referral None Reported. Results Created Date Observation Date Name Description Value Unit Range Abnormal Flag Note LastModifiedBy Organization Detail LastModifiedTime 01/22/2001/21/2019 TSH, serum or plasm a TSH 0.52 uIU/m L 0.50-6 .00 The Ameri can [employer] ge of Endoc rinol ogy and Ameri can Thyro id Assoc iatio n recom mend goal TSH value s betwe en 0.4-4 .0 mIU/m L. Not Available [address], [address], 01/21/2019 14:18:39 01/22/20 19 01/21/2019 PTH (para thyro id hormo ne), intac t, serum or plasm a PTH intact 22.8 pg/mL 9.6-66 .3 Not Available [address], [address], 01/21/2019 14:18:39 01/22/20 19 01/21/2019 vitam in D, 25-hy droxy , total [...] er than 30 ng/mL . Not Available [address], [address], 01/21/2019 14:18:40 01/22/2001/21/2019 renal funct ion panel , serum glucose 105 mg/dL 70-100 high Not Available [address], [address], 01/21/2019 14:55:29 01/22/2001/21/2019 renal funct ion panel , serum BUN 20 mg/dL 7-18 high Not Available [address], [address], 01/21/2019 14:55:29 01/22/2001/21/2019 renal funct ion panel , serum creatinine 0.8 mg/dL 0.8-1. 3 Not Available [address], [address], 01/21/2019 14:55:29 01/22/2001/21/2019 renal funct ion panel , serum B/C 25.0 ratio Not Available [address], [address], 01/21/2019 14:55:29 01/22/2001/21/2019 renal funct ion panel , serum GFR -non 77.9 mL/mi n Recom doc d GFR by the Natio nal Kidne y Found ation >60 mL/mi n/1.7 3m2 - Vane l <60 mL/mi n/1.7 3m2 - Chron ic Kidne y Disea se <15 mL/mi n/1.7 3m2 - Kidne y Failu re Not Available [address], [address], 01/21/2019 14:55:29 01/22/2001/21/2019 renal funct ion panel , serum GFR - if 89.6 mL/mi n For Afric an Ameri can patie nts: Resul ts Multi plied by 1.21 Not Available [address], [address], 01/21/2019 14:55:29 01/22/2001/21/2019 renal funct ion panel , serum sodium 145 mmol/ L 136-14 5 Not Available [address], [address], 01/21/2019 14:55:29 01/22/2001/21/2019 renal funct ion panel , serum potassium 4.1 mmol/ L 3.5-5. 1 Not Available [address], [address], 01/21/2019 14:55:29 01/22/2001/21/2019 renal funct ion panel , serum chloride 106 mmol/ L 96-107 Not Available [address], [address], 01/21/2019 14:55:29 01/22/2001/21/2019 renal funct ion panel , serum anion gap 10.2 5.0-15 .0 Not Available [address], [address], 01/21/2019 14:55:29 01/22/2001/21/2019 renal funct ion panel , serum CO2 29 mmol/ L 21-32 Not Available [address], [address], 01/21/2019 14:55:29 01/22/2001/21/2019 renal funct ion panel , serum calcium 9.4 mg/dL 8.5-10 .3 Not Available [address], [address], 01/21/2019 14:55:29 01/22/2001/21/2019 renal funct ion panel , serum albumin 3.7 g/dL 3.4-5. 0 Not Available [address], [address], 01/21/2019 14:55:29 01/22/2001/21/2019 renal funct ion panel , serum phosphorous 3.50 mg/dL 2.50-4 .90 Not Available [address], [address], 01/21/2019 14:55:29 01/22/20 19 01/21/2019 magne sium, serum or plasm a magnesium 2.0 mg/dL 1.8-2. 4 Not Available [address], [address], 01/21/2019 14:55:30 02/21/20 19 02/23/2019 calci um, 24-ho ur urine calcium, 24 hour urine 411 mg/24 _h high Refer ence Range 35-25 0 Low calci um diet 35-20 0 TOTAL URINE VOLUM E: 1700/ 24 Not Available [facility] [address], [address], 02/23/2019 21:12:19 02/21/20 19 02/23/2019 creat inine , 24-ho ur urine creatinine, 24 hour urine 0.97 g/24_ h 0.50-2 .15 normal TOTAL URINE VOLUM E: 1700/ 24 Not Available [facility] [address], [address], 02/23/2019 21:12:21 08/08/20 18 07/31/2018 bone densi ty OBSERV ATION: Dual-E nergy X-ray Absorp tiomet ry (DXA) scan [facility] on 018. Impres patrick: Based on BMD, diagno sis is consis [...] This scan was perfor med using the [employer] y Primo 10 densit ometer at [facility] , [place] [id number] [place]. Read by: Cristiano acuna PA-C, CCD Electr onical ly signed Estrada rajan Physic cornelia: Jeannette Andersen [facility]) [address], [place], [address], 08/09/2018 19:45:09 08/25/20 18 08/25/2018 US, liver [...] ed by overly ing bowel gas. IMPRES PATRICK: Chroni c cholel ithias is. No hepati c parenc hymal lesion identi fied. Spleen obscur ed by bowel gas. POS - VMG Electr onical ly signed Estrada rajan Physic cornelia: Lex Odell MD [facility] ([facility]) [address] , [place], [address], 01/26/2019 09:26:11 01/29/20 19 01/28/2019 MAMMO , [...] new asymme try is detect ed. IMPRES PATRICK: No mammog raphic change indica tive of malign blanco. Routin e screen ing is recomm ended. BI-RAD S CATEGO RY: 2 - Benign findin g. DENSIT Y: There are scatte red fibrog landul ar densit ies. POS - [id number] Electr onical ly Signed by: MERON CORADO on 01/29/20 6:46 PM Interp reted by: Meorn Corado MD Signed by: Meron Corado MD 01/28/19 CC Recipi ents: Anjelica Clarke MD - Fax Final result NIELS rodriguez [facility] [address] [place] [address], [address], 01/28/2019 20:22:13 01/29/2001/28/2019 MAMMO , scree tez No observ ation record ed. [address], [address], 02/02/2019 09:08:34 Result Notes Documentation Provider Name and Address Organization Details Recorded Time Mammo, Screening, Tomosynthesis, Bilateral, W/ Cad : FINDINGS: Bilateral full-field digital screening mammography is obtained and read in conjunction with computer-aided detection. 3-D tomosynthesis as well as 2-D C view imaging is also performed. Comparison includes the most recent exam from 01/27/2018 and as far back as 04/21/2012. Breasts are composed of scattered fibroglandular tissue. Waxing and waning circumscribed lesions bilaterally in a pattern seen with cysts. Stable bilateral nodularity. Scattered and loosely grouped calcifications without worrisome change. No new suspicious mass, suspicious microcalcifications, architectural distortion, focal skin thickening, or new asymmetry is detected. IMPRESSION: No mammographic change indicative of malignancy. Routine screening is recommended. BI-RADS CATEGORY: 2 - Benign finding. DENSITY: There are scattered fibroglandular densities. 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 needs lft's q yr and ultrasoun d of abdomen qyr Calos Valiente MD [address] [place], [place] [address], [address], [facility] 7 14:58:02 Computed tomograp hy result abnormal 668051313 Completed 10/12/2015 Calos Valiente MD [address] [place], [place] [address], [address], [facility] 6 13:28:27 Solitary nodule of lung 546296739 Active [address] low dose repeat CT Sep 2017 Calos Valiente MD [address] [place], [place] [address], [address], [facility] 7 08:18:25 Mixed hyperlip idemia 578105354 Active 2008 Calos Valiente MD [address] [place], [place] [address], [address], [facility] 6 13:28:26 Nervous system symptoms Completed 200409/05/2011 Calos Valiente MD [address] [place], [place] [address], [address], [facility] 6 13:28:26 Colitis, enteriti s and gastroen teritis presumed infectio 533520373 Completed 04/06/2013 Calos Valiente MD [address] [place], [place] [address], [address], [facility] 6 13:28:26 Abnormal findings on diagnost ic imaging of breast 939535233 Completed 200007/18/2009 Calos Valiente MD [address] [place], [place] [address], [address], [facility] 6 13:28:26 Gastroes ophageal reflux disease 991484397 Active 2006 Calos Valiente MD [address] [place] [address] [place], [address], [facility] 6 13:28:26 Non-toxi c uninodul ar goiter 027833380 Completed 200310/28/2014 Calos Valiente MD [address] [place] [address] [place], [address], [facility] 6 13:28:26 Nausea and vomiting 64791257 Completed 200604/06/2013 Calos Valiente MD [address] [place] [address] [place], [address], [facility] 6 13:28:26 Lateral epicondy litis 673846570 Completed 200407/18/2009 Calos Valiente MD [address] [place] [address] [place], [address], [facility] 6 13:28:26 Divertic ulitis of colon 990627104 Active 2006 Calos Valiente MD [address] [place] [address] [place], [address], [facility] 6 13:28:26 Neck pain 63582750 Completed 200307/18/2009 Calos Valiente MD [address] [place], [place] [address], [address], [facility] 6 13:28:26 Atypical facial pain 08244553 Completed 200102/20/2011 Calos Valiente MD [address] [place], [place] [address], [address], [facility] 6 13:28:26 Left lower quadrant pain 472152175 Completed 200704/06/2013 Calos Valiente MD [facility] [place], [address], [facility] 6 13:28:26 Epidermo id cyst of skin 968906857 Completed 09/05/2011 Calos Valiente MD [address] [place], [place] [address], [address], [facility] 6 13:28:26 Epidermo id cyst of skin 983429158 Completed 200102/20/2011 Calos Valiente MD [address] [place] [address] [place], [address], [facility] 6 13:28:26 Sprain of shoulder and upper arm Completed 200604/06/2013 Calos Valiente MD [address] [place] [address] [place], [address], [facility] 6 13:28:26 Acute maxillar y sinusiti s 56240586 Completed 200202/20/2011 Calos Valiente MD [address] [place] [address] [place], [address], [facility] 6 13:28:26 Non-toxi c multinod ular goiter 59954782 Active 2007 Calos Valiente MD [address] [place] [address] [place], [address], [facility] 6 13:28:26 Divertic ular disease of colon 472907278 Completed 200810/28/2014 Calos Valiente MD [address] [place] [address] [place], [address], [facility] 6 13:28:26 Hashimot o thyroidi tis 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 get tsh 07/2017 Calos Valiente MD [address] [place], [place] [address], [address], [facility] 6 16:46:00 Acute bronchit is 55546163 Completed 200002/20/2011 Calos Valiente MD [address] [place] [address] [place], [address], [facility] 6 13:28:26 Left upper quadrant pain 165721613 Completed 200002/20/2011 Calos Valiente MD [address] [place] [address] [place], [address], [facility] 6 13:28:26 Decrease in height 86999740 Completed 200608/12/2013 Calos Valiente MD [address] [place] [address] [place], [address], [facility] 6 13:28:26 Headache 07492994 Completed 200007/18/2009 Calos Valiente MD [address] [place] [address] [place], [address], [facility] 6 13:28:26 Sprain of ligament of lumbosac ral joint Completed 200210/28/2014 Calos Valiente MD [address] [place] [address] [place], [address], [facility] 6 13:28:26 Carpal tunnel syndrome 07299012 Completed 200007/18/2009 Calos Valiente MD [address] [place] [address] [place], [address], [facility] 6 13:28:26 Hyperthy roidism 44026650 Completed 200610/21/2017 Calos Valiente MD [address] [place] [address] [place], [address], [facility] 8 12:19:41 Contact dermatit is 80568391 Completed 200809/05/2011 Calos Valiente MD [address] [place] [address] [place], [address], [facility] 6 13:28:26 Senile hyperker atosis 999841457 Completed 200809/05/2011 MD [place], [address], [facility] 6 13:28:26 Pain of shoulder region 31530269 Completed 200604/06/2013 Calos Valiente MD [address] [place] [address] [place], [address], [facility] 6 13:28:26 Gastro-e sophagea l reflux disease with esophagi tis 314459574 Completed 199910/28/2014 Calos Valiente MD [address] [place] [address] [place], [address], [facility] 6 13:28:26 Clostrid ioides difficil e infectio n 216305130 Completed 200610/28/2014 Calos Valiente MD [facility] [place], [address], [facility] 6 13:28:26 Astigmat ism 86466323 Completed 200507/18/2009 Calos Valiente MD [facility] [place], [address], [facility] 6 13:28:26 Impacted cerumen 52252717 Completed 200102/20/2011 Calos Valiente MD [facility] [place], [address], [facility] 6 13:28:26 Sprain of spinal ligament 095810414 Completed 200007/18/2009 Calos Valiente MD [facility] [place], [address], [facility] 6 13:28:26 Conducti ve hearing loss 71473907 Active 2003 Calos Valiente MD [facility] [place], [address], [facility] 6 13:28:26 Sprain of ankle 16522251 Completed 200809/05/2011 Calos Valiente MD [facility] [place], [address], [facility] 6 13:28:26 Irritabl e bowel syndrome 54904604 Active 2006 Calos Valiente MD [facility] [place], [address], [facility] 6 13:28:26 Breathin g painful 40469322 Completed 200207/18/2009 Calos Valiente MD [facility] [place], [address], [facility] 6 13:28:26 Adverse reaction to substanc e 536440393 Completed 199907/18/2009 MD [place], [address], [facility] 6 13:28:26 Injury of lower limb 206155193 Completed 200007/18/2009 Calos Valiente MD [address] [place], [place] [address], [address], [facility] 6 13:28:26 Breast lump 06647400 Completed 200507/18/2009 Calos Valiente MD [address] [place], [place] [address], [address], [facility] 6 13:28:26 Gastroin testinal hemorrha ge 96187002 Completed 200504/06/2013 Calos Valiente MD [address] [place], [place] [address], [address], [facility] 6 13:28:26 Nonvenom ous insect bite of multiple sites 050320248 Completed 200604/06/2013 Calos Valiente MD [address] [place], [place] [address], [address], [facility] 6 13:28:26 Mammogra phy abnormal 932849577 Completed 200409/05/2011 Calos Valiente MD [facility] [place], [address], [facility] 6 13:28:26 Common cold 17839542 Completed 200604/06/2013 Calos Valiente MD [address] [place], [place] [address], [address], [facility] 6 13:28:26 Postarti ficial menopaus al syndrome 63948390 Completed 200608/12/2013 Calos Valiente MD [address] [place], [place] [address], [address], [facility] 6 13:28:26 On examinat ion - a rash Completed 200804/06/2013 [place], [address], [facility] 6 13:28:26 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 [place], [address], [facility] 6 13:28:26 Senile osteopor osis 91889198 Completed 200404/06/2013 [place], [address], [facility] 6 13:28:26 Chest pain 40699551 Completed 200804/06/2013 [place], [address], [facility] 6 13:28:26 Osteopor osis 40598694 Active 2004 [place], [address], [facility] 6 13:28:26 Menopaus al symptom 58238043 Completed 200208/12/2013 [place], [address], [facility] 6 13:28:26 Osteoart hritis 164697652 Active 2000 [place], [address], [facility] 6 13:28:27 Solitary cyst of breast 317362939 Completed 200002/20/2011 [place], [address], [facility] 13:28:26 External hemorrho ids 72510280 Completed 200709/05/2011 [place], [address], [facility] 13:28:26 Problem Notes None recorded. Procedures Surgical History Date Name Laterality Status Provider Name and Address Organization Details Recorded Time 08/13/20 18 Medicare Wellness Visit completed Anna Jaeger AIDS NURSE [facility] 08/13/2018 15:32:17 11/14/19 18 Armando - Colonoscopy completed Tru Roberts MD [address] [place] [address], [address], [facility] 11/14/2017 10:50:24 07/02/20 17 Cerumen Removal - Irrigation/Lavage completed Glory Shi [facility] 07/02/2017 12:00:33 04/22/20 17 Medicare Wellness Visit completed Binta Lam [facility] 04/22/2017 11:39:26 05/02/20 16 Cerumen Removal - Irrigation/Lavage completed Cecelia Newell [facility] 05/02/2016 14:24:43 04/19/20 16 Medicare Wellness Visit completed Tammy Grace [facility] 04/19/2016 10:18:59 04/18/20 15 Medicare Wellness Visit completed Binta Lam [facility] 04/18/2015 11:56:21 03/23/20 15 Cerumen Removal completed Lety Castellon [facility] 03/23/2015 10:27:25 04/15/20 14 Medicare Wellness Visit completed Binta Lam [facility] 04/15/2014 15:11:55 08/12/20 13 Cerumen Removal completed Lety Castellon AIDS NURSE [facility] 08/12/2013 12:22:56 04/06/20 13 Medicare Wellness Visit completed Binta Lam [facility] 04/06/2013 11:39:32 10/06/19 13 Cerumen Removal completed Sebastián Syed RN [facility] 10/06/2012 16:43:15 09/02/20 12 Suture/staple Removal completed Irene Kirk [facility] 09/02/2012 11:19:40 08/26/20 12 Excision completed Calos Valiente MD [address] [place] [address], [address], [facility] 08/26/2012 14:18:50 03/27/20 12 Medicare Wellness Visit completed Binta Lam MA [facility] 03/27/2012 11:35:52 02/20/20 12 Cerumen Removal completed Abbie Lal RN [facility] 02/20/2012 15:58:57 08/09/20 11 Cerumen Removal completed Irene Kirk LPN [facility] 08/09/2011 12:13:13 03/07/20 11 Suture/staple Removal completed Abbie Lal RN [facility] 03/07/2011 11:51:06 02/27/20 11 Excision completed Calos Valiente MD [address] [place] [address], [address], [facility] 02/26/2011 10:58:49 02/21/20 11 Medicare Annual Wellness Visit completed Binta Lam MA [facility] 02/20/2011 09:28:23 02/21/20 11 Medicare Risk for Falls Screen completed Calos Valiente MD [address] [place] [address], [address], [facility] 02/20/2011 09:40:31 02/21/20 11 Advanced Care Planning completed Calos Valiente MD [address] [place] [address], [address], [facility] 02/20/2011 09:53:51 01/19/20 11 Cerumen Removal completed Mary Angel NP [address] [place], [address], [facility] 01/18/2011 17:44:54 06/09/20 10 Cerumen Removal completed Lety Castellon LPN [facility] 06/09/2010 15:25:27 03/28/20 10 Corticosteroid Injection completed Calos Valiente MD [address] [place] [address], [address], [facility] 03/28/2010 11:03:57 12/29/19 10 Cerumen Removal completed Zeinab Greene LPN [facility] 12/28/2009 09:50:55 06/01/20 09 Cerumen Removal completed Irene Kirk LPN [facility] 06/01/2009 12:02:59 06/12/20 06 completed Not Available [facility] 08/09/2011 06:05:52 Imaging Results None recorded. Procedure Notes None recorded. Medical Equipment None Reported. Allergies Allergen ID Allergen Name Allergen Category Reaction Reaction Severity Criticality Documentation Date Start Date Code Code System Note Provider Name and Address Organization Details Recorded Time 32264 Substance with sulfonami de structure and antibacte rial mechanism of action (substanc e) medicatio n Not available Not available Not available 09/09/2010 44507 8003 SNOMED Not Available [facility] 1 06:05:41 Medications Name Sig Start Date [...] Not Available Not Available Not Available Fluvirin 0360-8677 45 mcg (15 mcg x 3)/0.5 mL [...] index (BMI) Body weight Heart rate Systolic And Diastolic Provider Name and Address Organization Details Last Updated DateTime 01/21/2019 155.58 cm 24.9 kg/m2 35303.79 g 80 /min 122/60 mm[Hg] ZULEMA Rincon [facility] 01/21/2019 10:31:03 Date Recorded Body height Body mass index (BMI) Body weight Heart rate Systolic And Diastolic Provider Name and Address Organization Details Last Updated DateTime 07/02/2018 154.94 cm 26.5 kg/m2 13488.93 g 84 /min 130/70 mm[Hg] Glory Colindres [facility] 07/02/2018 13:50:20 Date Recorded Body height Body mass index (BMI) Body weight Heart rate Systolic And Diastolic Provider Name and Address Organization Details Last Updated DateTime 07/16/2018 155.58 cm 25.9 kg/m2 69479.75 g 82 /min 140/78 mm[Hg] [facility] 11:07:18 Date Recorded Body height Body mass index (BMI) Body weight Heart rate Systolic And Diastolic Provider Name and Address Organization Details Last Updated DateTime 07/29/2019 155.58 cm 24.2 kg/m2 13070.85 g 86 /min 138/66 mm[Hg] Patricia Mills [facility] 07/29/2019 10:46:19 Date Recorded Body height Body mass index (BMI) Body weight Heart rate Respiratory rate Systolic And Diastolic Provider Name and Address Organization Details Last Updated DateTime 8 155.58 cm 25.9 kg/m2 66898.1 5 g 96 /min 20 /min 130/60 mm[Hg] Anna Heide [facility] 8 15:38:38 Social History Question Answer Notes LastModified by Organizat ion Details LastModified Time Tobacco Smoking Status Never Smoker Not Available [facility] 08/09/2011 04:53:18 Do You Have An Advance Directive? No Information n ot available 08/09/2011 Do You Wear A Helmet When Biking? [...] 12 [id number] Inform ation not available 08/09/2011 How Many Days In The Past Year [...] Yes [id number] Information n ot available 08/09/2011 Do You Have Difficulty Walking Or Climbing Stairs? No Information not available 04/15/2014 Sex: Unknown Functional Status Question Answer Note LastModified by Organizat ion Details LastModified Time What is your level of alcohol consumption? None Information not available 04/06/2013 Do you have difficulty doing errands alone? No Information not available 04/15/2014 What is your occupation? retired [employer] Information not available 04/30/2018 Do you have difficulty dressing or bathing? No Information not available 04/15/2014 What is your exercise level? Occasional Information not available 08/09/2011 Mental Status Question Answer Note [...] virus, trivalent, preservative 9 completed Not Available [facility] 10/10/2019 02:38:54 Influenza, split virus, trivalent, preservative 1 completed Not Available [facility] 10/10/2019 02:31:48 influenza, unspecified formulation 2 completed Not Available [facility] 08/08/2011 05:21:07 influenza, unspecified formulation 5 completed Not Available [facility] 08/08/2011 05:21:29 pneumococcal polysaccharide PPV23 7 completed Not Available [facility] 08/08/2011 05:21:29 influenza, unspecified formulation 7 completed Not Available [facility] 08/08/2011 05:21:55 Td(adult) unspecified formulation 8 completed Not Available [facility] 08/08/2011 05:21:55 influenza, unspecified formulation 8 completed Not Available [facility] 08/08/2011 05:21:55 Influenza, split virus, trivalent, preservative 2 completed Not Available [facility] 10/10/2019 02:33:39 Influenza, split virus, trivalent, PF 3 completed Not Available [facility] 10/10/2019 02:18:57 zoster live 8 completed Not Available [facility] 08/08/2011 05:22:52 Pneumococcal conjugate PCV 13 5 completed Not Available [facility] 10/10/2019 02:28:18 Novel [id number] 0 completed Not Available [facility] 10/10/2019 02:25:07 Influenza, high-dose, trivalent, PF 6 completed Not Available [facility] 10/10/2019 02:21:03 Influenza, split virus, trivalent, PF 4 completed Not Available [facility] 2019 02:10:39 Influenza, high-dose, trivalent, PF 7 completed Not Available [facility] 10/10/2019 02:21:41 Influenza, high-dose, trivalent, PF 5 completed Emmanuelle Perez RN, BSN [facility] 07/17/2015 12:34:45 Influenza, high-dose, trivalent, PF 8 completed Not Available [facility] 10/10/2019 02:23:03 Influenza, split virus, trivalent, preservative 0 completed Not Available [facility] 10/10/2019 02:27:08 Past Encounters Encounter ID Performer Location Encounter Start Date Encounter Closed Date Diagnosis/Indication Diagnosis SNOMED-CT Code Diagnosis ICD10 Code Diagnosis Note [id number] Calos Valiente MD , [facility], [address] [place] [address] 08/21/2000 11:45:00 10/13/2008 02:02:29 [id number] Calos Valiente MD , [facility], [address] [place] [address] 09/02/2000 14:15:00 10/13/2008 02:02:29 [id number] Calos Valiente MD [facility] [address] [place] [address] 01/11/2001 10:00:00 10/13/2008 02:02:29 [id number] Calos Valiente MD , [facility], [address] [place] [address] 02/19/2001 16:15:00 10/13/2008 02:02:29 [id number] Calos Valiente MD , [facility], [address] [place] [address] 02/26/2001 10:30:00 10/13/2008 02:02:29 [id number] Calos Valiente MD , [facility], [address] [place] [address] 01/02/2001 10:30:00 10/13/2008 02:02:29 [id number] Calos Valiente MD , [facility], [address] [place] [address] 03/28/2001 11:00:00 10/13/2008 02:02:29 [id number] [facility] , [address] [address] 03/20/2001 14:00:00 10/13/2008 02:02:29 [id number] Calos Valiente MD , [facility], [address] [place] [address] 07/23/2001 11:45:00 10/13/2008 02:02:29 [id number] MD FRANKO Milian, [facility], [address] [place] [address] 09/26/2001 14:45:00 10/13/2008 02:02:29 [id number] Calos Valiente MD , [facility], [address] [place] [address] 11/21/2001 15:30:00 10/13/2008 02:02:29 [id number] Calos Valiente MD , [facility], [address] [place] [address] 12/29/2001 09:45:00 10/13/2008 02:02:29 [id number] Calos Valiente MD , [facility], [address] [place] [address] 03/23/2002 10:28:26 10/13/2008 02:02:29 [id number] Calos Valiente MD , [facility], [address] [place] [address] 04/06/2002 10:46:02 10/13/2008 02:02:29 [id number] TREATMENT NURSE [facility], [facility], [address] [place] [address] 04/15/2002 09:55:33 10/13/2008 02:02:29 [id number] [facility] , [facility] [address] [place] [address] 04/20/2002 12:03:48 10/13/2008 02:02:29 [id number] [facility] - [facility] [address] [facility] [place] [address] 04/24/2002 11:52:43 10/13/2008 02:02:29 [id number] Calos Valiente MD , [facility], [address] [place] [address] 05/08/2002 10:10:02 10/13/2008 02:02:29 [id number] Calos Valiente MD , [facility], [address] [place] [address] 06/02/2002 10:02:44 10/13/2008 02:02:29 [id number] Calos Valiente MD , [facility], [address] [place] [address] 09/03/2002 15:26:30 10/13/2008 02:02:29 [id number] Calos Valiente MD , [facility], [address] [place] [address] 10/20/2002 15:09:26 10/13/2008 02:02:29 [id number] Calos Valiente MD , [facility], [address] [place] [address] 11/18/2002 15:24:24 10/13/2008 02:02:29 [id number] MD FRANKO Milian, [facility], [address] [place] [address] 02/17/2003 11:13:26 10/13/2008 02:02:29 [id number] [facility] - [facility] [address] [place] [address] 04/01/2003 09:02:04 10/13/2008 02:02:29 [id number] MD FRANKO Milian, [facility], [address] [place] [address] 03/31/2003 10:18:52 10/13/2008 02:02:29 [id number] [facility] , [facility] [address] [place] [address] 04/06/2003 13:30:30 10/13/2008 02:02:29 [id number] [facility] - [address] [address] 04/21/2003 11:18:36 10/13/2008 02:02:29 [id number] [facility] BONE DENSITY TECH Radiology , [facility] [address] [place] [address] 04/28/2003 09:22:40 10/13/2008 02:02:29 [id number] MD FRANKO Milian, [facility], [address] [place] [address] 09/07/2003 09:47:15 09/07/2003 12:29:27 [id number] MD FRANKO Milian, [facility], [address] [place] [address] 01/24/2004 14:57:53 01/24/2004 17:30:12 [id number] MD FRANKO Milian, [facility], [address] [place] [address] 04/05/2004 10:26:08 04/05/2004 12:21:18 [id number] [facility] Radiology , [facility] [address] [place] [address] 04/12/2004 11:02:10 04/13/2004 09:25:21 [id number] MD FRANKO Milian, [facility], [address] [place] [address] 04/17/2004 15:30:13 04/17/2004 16:37:04 [id number] [facility] - [address] [place] [address] 04/24/2004 15:03:32 04/24/2004 15:06:17 [id number] Calos Valiente MD , [facility], [address] [place] [address] 05/16/2004 14:21:17 05/16/2004 15:36:35 [id number] Roberto Carlos Johnson , PT Physical Therapy, [facility] [address] [place] [address] 05/22/2004 14:17:10 05/22/2004 15:34:02 [id number] Calos Valiente MD , [facility], [address] [place] [address] 06/12/2004 14:03:54 06/13/2004 08:44:24 [id number] Calos Valiente MD , [facility], [address] [place] [address] 11/28/2004 10:48:03 11/28/2004 14:51:49 [id number] [facility] BONE DENSITY TECH Radiology , [address] [address] 04/02/2005 11:29:30 04/03/2005 08:57:38 [id number] Calos Valiente MD , [facility], [address] [place] [address] 04/09/2005 10:33:55 04/09/2005 13:48:49 [id number] [facility] Radiology , [facility] [address] [place] [address] 04/17/2005 10:42:51 10/13/2008 02:02:29 [id number] [facility] , [facility] [address] [place] [address] 05/08/2005 16:07:24 10/13/2008 02:02:29 [id number] MD FRANKO Milian, [facility], [address] [place] [address] 05/10/2005 15:23:51 10/13/2008 02:02:29 [id number] [facility] LAB - [facility] [address] [place] [address] 07/04/2005 09:43:47 07/04/2005 09:44:04 [id number] Calos Valiente MD , [facility], [address] [place] [address] 08/01/2005 16:31:52 10/13/2008 02:02:29 [id number] Kathie Velasquez, OD Eye Care, [facility] [address] [place] [address] 03/18/2006 14:20:49 10/13/2008 02:02:29 [id number] Calos Valiente MD , [facility], [address] [place] [address] 03/28/2006 14:21:50 03/28/2006 16:26:32 [id number] Calos Valiente MD , [facility], [address] [place] [address] 04/11/2006 08:54:06 04/11/2006 11:24:55 [id number] FP TREATMENT NURSE [facility], [facility], [address] [place] [address] 04/15/2006 14:57:06 04/15/2006 16:14:28 [id number] [facility], NIELS SAMS MD ASP, [address] [address] 06/12/2006 08:17:24 06/13/2006 07:25:18 [id number] MD FRANKO Milian, [facility], [address] [place] [address] 06/27/2006 15:08:52 06/27/2006 16:35:06 [id number] Calos Valiente MD , [facility], [address] [place] [address] 11/20/2006 11:08:58 11/21/2006 07:58:56 [id number] MD FRANKO Milian, [facility], [address] [place] [address] 12/24/2006 11:00:59 12/25/2006 11:23:21 [id number] Roberto Carlos Johnson , PT Physical Therapy, [facility] [address] [place] [address] 12/27/2006 15:53:15 12/30/2006 17:04:09 [id number] Roberto Carlos Johnson , PT Physical Therapy, [address] [address] 01/13/2007 10:55:41 01/13/2007 16:17:17 [id number] Roberto Carlos Johnson , PT Physical Therapy, [address] [address] 01/27/2007 14:28:30 01/28/2007 09:18:[id number] [facility] - [address] [address] 01/27/2007 10:43:06 01/27/2007 10:43:26 [id number] Roberto Carlos Johnson , PT Physical Therapy, [address] [address] 02/10/2007 10:22:04 02/10/2007 15:19:14 [id number] Roberto Carlos Johnson , PT Physical Therapy, [address] [address] 02/19/2007 11:53:15 02/19/2007 14:13:02 [id number] Calos Valiente MD , [facility], [address] [place] [address] 02/20/2007 11:06:26 02/20/2007 15:54:33 [id number] [facility] RADIOLOGY [facility] , [address] [address] 02/20/2007 11:31:53 02/21/2007 09:16:35 [id number] Niels Sams MD , [facility], [address] [place] [address] 03/01/2007 10:28:47 03/01/2007 13:23:12 [id number] MD FRANKO Milian, [facility], [address] [place] [address] 04/02/2007 15:01:36 04/03/2007 08:21:50 [id number] MD FRANKO Milian, [facility], [address] [place] [address] 04/14/2007 15:11:02 04/14/2007 16:37:50 [id number] MD FRANKO Milian, [facility], [address] [place] [address] 06/09/2007 15:04:07 06/13/2007 12:49:41 [id number] [facility] BONE DENSITY TECH Radiology , [facility] [address] [place] [address] 06/26/2007 10:13:18 06/27/2007 09:20:06 [id number] Caols Valiente MD , [facility], [address] [place] [address] 07/30/2007 15:24:07 10/13/2008 02:02:29 [id number] Calos Wu MD , [facility], [address] [place] [address] 09/20/2007 09:17:48 10/13/2008 02:02:29 [id number] Calos Valiente MD , [facility], [address] [place] [address] 12/09/2007 15:04:32 10/13/2008 02:02:29 [id number] Calos Valiente MD , [facility], [address] [place] [address] 01/30/2008 11:39:32 10/13/2008 02:02:29 [id number] Calos Valiente MD , [facility], [address] [place] [address] 04/13/2008 15:18:25 10/13/2008 02:02:29 [id number] [facility] FLU CLINIC , [facility], [address] [place] [address] 07/14/2008 16:21:35 07/14/2008 16:21:40 [id number] Calos Valiente MD , [facility], [address] [place] [address] 08/02/2008 15:47:27 10/13/2008 02:02:29 [id number] Calos Valiente MD , [facility], [address] [place] [address] 10/06/2008 14:26:37 10/13/2008 02:02:29 [id number] Calos Valiente MD , [facility], [address] [place] [address] 11/18/2008 14:26:17 11/24/2008 11:20:41 [id number] [facility] RADIOLOGY [facility]ologi [facility] , [facility] [address] [place] [address] 11/18/2008 14:43:54 11/18/2008 17:10:40 [id number] MD FRANKO Milian, [facility], [address] [place] [address] 12/15/2008 12:05:15 12/17/2008 12:42:38 [id number] MD FRANKO Milian, [facility], [address] [place] [address] 12/23/2008 15:34:50 12/27/2008 14:06:35 [id number] Calos Valiente MD , [facility], [address] [place] [address] 02/09/2009 14:28:33 02/11/2009 15:21:27 [id number] Calos Valiente MD , [facility], [address] [place] [address] 04/11/2009 15:07:16 04/13/2009 11:16:04 [id number] Calos Valiente MD , [facility], [address] [place] [address] 05/04/2009 15:54:44 05/05/2009 14:57:03 [id number] BOOM Steele , [facility], [address] [place] [address] 06/01/2009 11:10:23 06/06/2009 11:28:11 [id number] [facility] - [facility] [address] [place] [address] 04/11/2009 15:59:01 04/11/2009 15:59:16 [id number] [facility] BONE DENSITY TECH Radiology , [facility] [address] [place] [address] 07/25/2009 11:08:41 07/27/2009 11:30:05 [id number] Calos Valiente MD , [facility], [address] [place] [address] 09/01/2009 11:05:17 09/05/2009 09:52:21 [id number] MD FRANKO Milian, [facility], [address] [place] [address] 10/06/2009 11:03:54 10/07/2009 12:30:46 [id number] Calos Valiente MD , [facility], [address] [place] [address] 11/04/2009 15:37:36 11/07/2009 14:10:42 [id number] Calos Valiente MD , [facility], [address] [place] [address] 12/13/2009 15:26:07 12/15/2009 10:01:44 [id number] Calos Valiente MD , [facility], [address] [place] [address] 12/28/2009 09:09:33 12/30/2009 09:59:30 [id number] Calos Valiente MD , [facility], [address] [place] [address] 01/10/2010 10:54:36 01/10/2010 15:02:05 [id number] Calos Valiente MD , [facility], [address] [place] [address] 03/28/2010 10:12:46 03/31/2010 08:59:43 [id number] [facility] RADIOLOGY Technologi [facility] , [facility] [address] [place] [address] 03/28/2010 11:03:26 03/29/2010 12:23:35 [id number] Calos Valiente MD , [facility], [address] [place] [address] 04/17/2010 09:46:06 04/18/2010 09:19:57 [id number] Calos Valiente MD , [facility], [address] [place] [address] 06/09/2010 14:40:41 06/12/2010 09:51:34 [id number] SIMON Glez, [facility], [address] [place] [address] 09/09/2010 12:21:55 09/13/2010 12:07:02 [id number] SIMON Barrera, [facility], [address] [place] [address] 01/18/2011 16:27:53 01/22/2011 08:37:10 [id number] MD FRANKO Milian, [facility], [address] [place] [address] 02/07/2011 15:45:56 02/09/2011 10:42:53 [id number] MD FRANKO Milian, [facility], [address] [place] [address] 02/20/2011 09:12:18 02/22/2011 09:23:32 [id number] Calos Valiente MD , [facility], [address] [place] [address] 02/26/2011 10:29:49 02/27/2011 14:00:13 [id number] FP TREATMENT NURSE [facility], [facility], [address] [place] [address] 03/07/2011 10:28:05 03/09/2011 08:40:46 [id number] Calos Valiente MD , [facility], [address] [place] [address] 03/28/2011 14:53:11 03/29/2011 10:06:36 [id number] Lex Stone MD , [facility], [address] [place] [address] 05/13/2011 09:40:13 05/13/2011 10:11:20 [id number] Calos Valiente MD , [facility], [address] [place] [address] 05/23/2011 14:58:08 05/23/2011 15:28:50 [id number] Calos Valiente MD , [facility], [address] [place] [address] 05/30/2011 15:12:19 05/30/2011 15:39:54 [id number] Calos Valiente MD , [facility], [address] [place] [address] 06/15/2011 09:27:02 06/18/2011 11:58:32 [id number] [facility] BONE DENSITY TECH Radiology , [facility] [address] [place] [address] 08/09/2011 10:57:20 08/10/2011 12:04:08 [id number] Calos Valiente MD , [facility], [address] [place] [address] 08/09/2011 11:24:36 08/10/2011 08:59:25 [id number] MD FRANKO Milian, [facility], [address] [place] [address] 09/05/2011 15:47:18 09/07/2011 09:03:03 [id number] Calos Valiente MD , [facility], [address] [place] [address] 12/24/2011 16:10:22 12/24/2011 16:41:25 [id number] Angela Cole MD , [facility], [address] [place] [address] 01/02/2012 15:17:18 01/02/2012 16:01:26 [id number] Rocio Patel PA-C , [facility], [address] [place] [address] 02/20/2012 11:47:36 02/21/2012 10:06:54 [id number] Calos Valiente MD , [facility], [address] [place] [address] 02/28/2012 15:26:37 02/29/2012 08:24:19 [id number] Calos Valiente MD , [facility], [address] [place] [address] 03/27/2012 11:27:30 03/27/2012 11:58:47 [id number] Calos Valiente MD , [facility], [address] [place] [address] 05/22/2012 16:00:31 05/23/2012 10:13:25 [id number] Calos Valiente MD , [facility], [address] [place] [address] 05/27/2012 16:24:54 05/28/2012 12:48:23 [id number] Calos Valiente MD , [facility], [address] [place] [address] 08/26/2012 13:46:36 08/26/2012 14:18:22 [id number] FP TREATMENT NURSE [facility], [facility], [address] [place] [address] 09/02/2012 10:43:50 09/03/2012 14:05:42 [id number] Mary Angel NP , [facility], [address] [place] [address] 10/06/2012 15:56:03 10/06/2012 16:37:30 [id number] Calos Valiente MD , [facility], [address] [place] [address] 10/15/2012 09:52:23 10/16/2012 12:54:52 [id number] Sharif Traylor MD , [facility], [address] [place] [address] 10/18/2012 09:49:09 10/20/2012 13:17:23 [id number] Calos Valiente MD , [facility], [address] [place] [address] 11/05/2012 10:46:36 11/06/2012 11:24:05 [id number] Calos Valiente MD , [facility], [address] [place] [address] 04/06/2013 11:19:58 04/07/2013 13:17:17 [id number] Calos Valiente MD , [facility], [address] [place] [address] 06/10/2013 06:21:35 06/10/2013 16:25:35 Influenza vaccine needed [id number] Calos Valiente MD , [facility], [address] [place] [address] 08/12/2013 11:54:44 08/13/2013 10:15:52 Impacted cerumen [id number] successful IRRIGATION DONE, f/u prn, [id number] Troy Cedeno MD , [facility], [address] [place] [address] 08/19/2013 16:26:04 08/24/2013 10:18:40 Bursitis of shoulder [id number] Patient with clinical presentati on of left [...] contact the clinic if her symptoms worsen. [id number] Calos Valiente MD , [facility], [address] [place] [address] 10/07/2013 10:12:00 10/08/2013 09:45:51 Contusion of chest [id number] tylenol, heat or ice, rest, reassuran e [id number] Calos Valiente MD , [facility], [address] [place] [address] 12/28/2013 14:42:12 12/29/2013 09:52:41 Irritable bowel syndrome [id number] I still think she has mild IBS. avoid possible offending foods like fatty foods, tomatos products, dairy. call if not settling down. [id number] Calos Valiente MD , [facility], [address] [place] [address] 03/29/2014 13:59:52 03/30/2014 16:21:31 Dysuria [id number] resolved. never sure she had UTI- as there was never a urinanalys is at first before med. in hospital-h ad microscpic blood in urine but culture was negative.a nd repeat u/a neg she couldhave had a viral infection or partially treated uti. plan stop ceftin today. and follow I review hosptial labs and H and P. [id number] Calos Valiente MD , [facility], [address] [place] [address] 04/15/2014 14:58:21 04/16/2014 09:36:29 Adult health examination [id number] see Risk Assessment and Lifestyle Change Counseling section above Counseling [id number] [facility] [id number] [facility] Dr. Murray. urge weight bearing exericses Gastroesop hageal reflux disease [id number] controlled nexium otc [id number] CANDY Otto , [facility], [address] [place] [address] 06/29/2014 10:48:45 06/30/2014 08:34:30 Strain of muscle of face [id number] probable muscular strain of left side of face, advised to use ice to affected area several times a day, ibuprofen 200 mg 3 tablets 3 times a day and if no improvemen t in the next 5-7 days return to office for further reevaluati on. [id number] Calos Valiente MD , [facility], [address] [place] [address] 10/27/2014 11:12:18 11/04/2014 12:55:15 Urinary tract infectious disease [id number] recurrent due to postmenopa usal- not present now- could try to treat self next time gets typical sx. If not better, call . could consider estrogen cream. no sx now rx given, if needs in future. [id number] Calos Valiente MD , [facility], [address] [place] [address] 01/27/2015 12:12:28 02/01/2015 15:19:53 Acute bronchitis [id number] rest, hot liquids, call if worse otc cough med and tylenol [id number] Jules Cortés MD , [facility], [address] [place] [address] 03/12/2015 11:30:34 03/12/2015 12:01:48 Pain of joint of hand [id number] Calos Valiente MD , [facility], [address] [place] [address] 03/23/2015 09:46:48 04/01/2015 14:41:46 Synovial cyst [id number] Otalgia [id number] no sour ce found- follow Malignant melanoma of eye [id number] going to [facility] tomorrow Impacted cerumen [id number] successful IRRIGATION DONE, f/u prn, [id number] Lex Whelan MD , [facility], [address] [place] [address] 04/08/2015 16:13:28 04/08/2015 17:32:38 Carpal tunnel syndrome [id number] [id number] Calos Valiente MD , [facility], [address] [place] [address] 04/18/2015 11:36:54 04/18/2015 12:27:32 Adult health examination [id number] see Risk Assessment and Lifestyle Change Counseling section above Counseling [id number] Active or passive immunization 197012901 Malignant melanoma of eye 154508581 [facility] abnormal [id number] there is a small nodule found on CT scan. [facility] wants repeat CT scan in three months Senile hyperkeratosis 673995653 on neck ret for removal md at [facility] wants it removed.It isn't malignant. [id number] Calos Valiente MD , [facility], [address] [place] [address] 05/18/2015 12:10:39 05/19/2015 12:07:05 Senile hyperkeratosis 485859256 cryo and curettage done [id number] Viral Baig MD , [facility], [address] [place] [address] 08/28/2015 10:00:58 08/28/2015 10:25:37 Diverticulitis of colon 884960107 K57.32 [id number] Calos Valiente MD , [facility], [address] [place] [address] 08/31/2015 13:20:53 08/31/2015 14:10:01 Left lower quadrant pain 821928299 R10.32 possible mild diverticul tis. add flagyll. call next week with progress note. couldn't giveadequa te amount of urine. if not better in 2 days- get urine dip and micro and u/c to r/o stones and infection [id number] Calos Valiente MD , [facility], [address] [place] [address] 10/12/2015 12:07:23 10/13/2015 13:48:26 Irritable bowel syndrome 49294889 K58.9 I still think she has mild IBS. try colace for constipati on. cont culturelee . and veggies. [id number] Calos Valiente MD , [facility], [address] [place] [address] 04/19/2016 10:14:44 04/19/2016 11:01:52 Adult health examination 551860057 Z00.00 see Risk Assessment and Lifestyle Change Counseling section above Counseling 257479082 Z71 .9 Gastroesop hageal reflux disease 123057187 K21.9 controlled with omeprazole Osteoporosis 67267648 M8 1.[address] Murray. urge weight bearing exericises Malignant melanoma of eye 696091369 C69.90 being treated at [facility] lft's tested for melanoma Irritable bowel syndrome 79085736 K58.9 controled with current diet [id number] Calos Valiente MD , [facility], [address] [place] [address] 05/02/2016 13:43:07 05/08/2016 13:54:13 Pain of shoulder region 95245494 M25.512 maybe mild impingemen t syndrome - getting better on own plan try nsaid. ret prn Impacted cerumen 1649384 6 H61.23 successful IRRIGATION DONE, f/u prn, [id number] Calos Valiente MD , [facility], [address] [place] [address] 07/04/2016 11:10:41 07/04/2016 11:44:33 Active or passive immunization 998183532 Z23 Chest wall pain 75573695 6 R07.89 soft tissue bruise probably from tight bra- recommend larger bra until loses weight [id number] Calos Valiente MD , [facility], [address] [place] [address] 09/25/2016 12:13:03 09/25/2016 12:59:28 Irritable bowel syndrome 53911503 K58.9 try eliminatin g fructans and galacto-ol iosacchari dse no wheat , barley oats. 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 follow [id number] Calos Valiente MD , [facility], [address] [place] [address] 04/22/2017 11:35:56 04/22/2017 12:24:28 Adult health examination 931625721 Z00.00 see Risk Assessment and Lifestyle Change Counseling section above Counseling 348452043 Z71 .9 Irritable bowel syndrome 50483161 K58.9 better with certain dietary restrictio ns Malignant melanoma of eye 689894848 C69.90 see opth in [place] Osteoporosis 37668117 M8 1.[address] Murray. urge weight bearing exericises [id number] Lex Whelan MD , [facility], [address] [place] [address] 06/04/2017 16:35:56 06/04/2017 17:17:19 Hordeolum externum of upper eyelid 338745310 H00.780 [id number] Toño Lau MD , [facility], [address] [place] [address] 06/06/2017 16:15:53 06/07/2017 08:24:28 Active or passive immunization 576656993 Z23 [id number] Calos Valiente MD , [facility], [address] [place] [address] 07/02/2017 11:12:18 07/03/2017 10:13:51 Irritable bowel syndrome 19743732 K58.9 tried various dietary restrictio n and fiber supplement s, TTG neg. 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 on probiotics - get GI input besides due for another colonoscop y Internal hemorrhoids 904 02669 K64.8 continue proctozone [id number] Calos Valiente MD , [facility], [address] [place] [address] 10/21/2017 11:42:26 10/21/2017 12:36:17 Irritable bowel syndrome 85592404 K58.9 quiet now Malignant melanoma of eye 692303042 C69.90 see opth in [place] Osteoporosis 56609002 M8 1.[address] Estrada Gastroesop hageal reflux disease 451532512 K21.9 PPI qd but take one day off a week [id number] Tru Roberts MD [facility], [facility] [address] [place] [address] 11/14/2017 08:53:54 11/14/2017 13:51:26 [id number] Sawyer Estrada MD Endocrino log, [facility] [address] [place] [address] 04/30/2018 14:51:37 04/30/2018 16:15:53 Osteoporosis 23749114 M81.0 -reassess bone density test -dairy 3 times daily -practice balance by dancing -ca 600 +d tab, 1/2 tab am and 1/2 tab pm -vit d 1000units tabs, 2 tab winter, 1 summer Vitamin D deficiency 347 78675 E55.9 [id number] Niels Sams MD , [facility], [address] [place] [address] 07/02/2018 13:41:37 07/02/2018 14:24:34 Active or passive immunization 256608419 Z23 Strain of muscle and/or tendon of lower leg 920358361 S86.911A ankle strain- rest, rom exercises Injury of finger 0894124 8 S69.92XA strst, rom exercise- f/u if not improving in coming 1-2 wkseain- [id number] Sawyer Estrada MD Endocrino logy, [facility] [address] [place] [address] 07/16/2018 10:45:31 07/16/2018 11:47:48 Osteoporosis 61201254 M81.0 -reassess bone density test -dairy 3 times daily -practice balance by dancing -limit calcium to 250mg via supplement -vit d 1000units tabs, 2 tab winter, 1 summer Vitamin D deficiency 347 72059 E55.9 [id number] Niels Sams MD , [facility], [address] [place] [address] 08/13/2018 15:28:45 08/13/2018 16:22:01 Adult health examination 094536997 Z00.00 see Risk Assessment and Lifestyle Change Counseling section above Counseling 098690169 Z71 .9 Depression screening 171 992405 Z13.89 depression screening tool administer ed, entered into emr, scored and discussed, time greater than 7.5 minutes Solitary n odule of lung 230925355 R91.1 f/u ct with no change out far enough to consider benign 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 [address] [place] [address] 01/21/2019 10:17:59 01/21/2019 11:16:38 Osteoporosis 52647151 M81.0 -dairy or dairy replacemen t 2 times daily-spin ach-practi ce balance by dancing - no calcium supplement s-vit d 1000units tabs, 2 tab winter, 1 summer -labs, if normal, ask me to order to order prolia, then authorize prolia to be sent to [facility] for administra tion, then book appointmen t with endocrine nurse to administer every 6mo Vitamin D deficiency 347 91767 E55.9 [id number] Sawyer Estrada MD Endocrino logy, [facility] [address] [place] [address] 07/29/2019 10:25:03 07/29/2019 13:23:12 Osteoporosis 72863126 M81.0 -add risedronat e 35 mg by mouth once weekly with a full glass of water on an empty stomach while sitting or standing; do not lie down after taking risedronat e for at least 1h -soy milk or other replacemen t dairy once daily, almonds-ad d kale-aim for calcium 1000mg via diet then recheck urine calcium 24h Vitamin D deficiency 347 44760 E55.9 -vitamin d 1000units by mouth once daily Health Concerns Section Related Observation LastModified by Organization Detai ls LastModified Time None Recorded Concern Status LastModified by Organization Details LastModified Time None Recorded Advance Directives Directive N: Payers Insurance Date Sequence Insurance Name Policy Number Policy Tamayo Covered Member ID Tamayo Member ID Guarantor Name 09/01/2019 2 [employer] OPTIONS - PLAN T2 (INDEMNITY) Irene Porter [id number] Irene Porter 08/07/2019 1 [employer] [id number] Irene Jessy [place] [id number] Irene Porter 08/07/2019 1 [employer] (HMO) [id number] Irene Jessy [place] [id number] Irene Porter 08/07/2019 1 [place]IC[place]: [employer] Irene Porter [id number] Irene Porter 08/07/2019 2 [employer] (MEDICARE SUPPLEMENT) Irene Porter [id number] Irene Porter 08/07/2019 1 [employer] - [employer] CUST[employer] (HMO) [id number] Irene Jessy [place] [id number] Irene Porter Notes Date Note Type Note Provider Name and Address Organization Details Recorded Time 07/02/2018 text/html AFTER GARDENING 4 days ago, R foot pain and left 3rd finger had been hurting x > month. no swelling, Irene Sams, [facility] [address] [place] [address], [phone], [facility] 07/05/2018 14:22:41 07/16/2018 text/html 77yo woman, with [...] return as needed. she Sawyer Estrada MD [address] [place] [address], [phone], [facility] 07/16/2018 11:51:02 08/13/2018 text/html Physical Exam/FemaleReported bypatient.PHAPatient is here for a Wellness Visit. She describes her health status as fair. Patient's health is worse than last year.Notes:being treated for melanoma right eye at [facility] and [facility]-is scheduled for surgery nd needs [...] asparagus and lactaid milk- IBS is better Niels Sams MD [address] [place] [address], [phone], [facility] 08/21/2018 15:29:01 01/21/2019 text/html 78yo woman, with [...] no bone breaks lately Sawyer Estrada MD [address] [place] [address], [phone], [facility] 01/21/2019 10:59:03 07/29/2019 text/html 78yo woman, with [...] 600mg calcium once daily Sawyer Estrada MD [address] [place] [address], [phone], [facility] 07/29/2019 11:14:10 OBGyn Episode No OBEpisode recorded.
[2025-04-06 10:13] LABS: MANUAL DIFF FLAG NO
[2025-04-06 10:41] LABS: Hematocrit 40.0 % (37.0-47.0); Hemoglobin 13.2 g/dl (12.0-16.0); Imm Gran Abs Auto 0.01 X10*3/uL (0.00-0.03); Imm Gran Pct Auto 0.2 % (0.0-0.4); Lymphocytes Absolute Auto 1.9 X10*3/uL (1.2-4.9); Mean Corpuscular HGB Conc 33.0 g/dl (31.0-35.0); Mean Corpuscular Hemoglobin 30.0 pg (27.0-33.0); Mean Corpuscular Volume 90.9 fL (80.0-98.0); NRBC Abs Auto 0.000 X10*3/uL (0.0-0.012); NRBC Pct Auto 0.0 /100WBC (0.0-0.2); Platelet Count 270 X10*3/uL (160-400); Red Blood Count 4.40 X10*6/uL (4.20-5.50); White Blood Count 5.3 X10*3/uL (4.8-10.8)
[2025-04-06 10:59] LABS: Alanine Aminotransferase 17 U/L (0-31); Albumin Level 4.3 g/dL (3.5-5.0); Alkaline Phosphatase 37 U/L (39-117); Anion Gap 13 (12-20); Aspartate Amino Transferase 21 U/L (5-31); Blood Urea Nitrogen 15 mg/dL (9-16); Calcium 9.0 mg/dL (8.4-10.2); Carbon Dioxide 30 mmol/L (22-29); Chloride 105 mmol/L (96-108); Cholesterol 207 mg/dL (<200); Estimated Glomerular Filt Rate > 60; HDL Cholesterol 47 mg/dL (>40); Potassium 3.7 mmol/L (3.3-5.1); Sodium 144 mmol/L (135-145); Total Protein 6.8 g/dL (6.5-8.0); Triglycerides 75 mg/dL (<150)
== END 2025-04-06 08:54 | disposition home or self-care (01) ==
LOC: HO.HMGCLDS 08:53
PROVIDERS: PCP Nurse Practitioner Family; Visit Provider Nurse Practitioner Family
DX: M54.50 Low back pain, unspecified (principal); G89.29 Other chronic pain
CPT/HCPCS: 36415; 80053; 80061; 84443; 85025

== ENCOUNTER 2025-04-07 12:45 | Outpatient (REF) | payer MEDICARE, SELFPAY ==
--- OUTSIDE RECORDS SUMMARY | 2025-04-07 15:19 | XMS_ITS | Patient Health Record ---
Author Organization [facility] Address [address] [place] [address] Care Team Providers Care Ground Operations [employer] Member Name Role Phone Anjelica Clarke MD Primary Care Provider Frank Mccoy Unavailable [phone] Allergies Allergen (clinical drug ingredient) Drug/Non Drug [...] Status Risk Notes Problem Irritable bowel syndrome (46766112) Irritable bowel syndrome (K58.9) Active confirmed Problem 521543611 Gastroesophageal reflux disease, esophagitis presence not specified (K21.9) Active confirmed Problem Hiatal hernia (44837800) Hiatal hernia (K44.9) Active confirmed Problem 74974371 Constipation, unspecified constipation type (K59.00) Active confirmed Problem Gastroesophageal reflux disease (576350081) GERD (gastroesophageal reflux disease) (K21.9) Active confirmed Problem 69186402191437912 Abnormal gallbladder ultrasound (R93.2) Active confirmed Problem 203453791 Left lower quadrant abdominal pain (R10.32) Active confirmed Encounters Encounter Location Date Provider Diagnosis [facility] [address] [place] [address] 01/12/2025 Frank Avila Plan Of Treatment Future Test Test Name Order Date UPPER GI ENDOSCOPY 04/26/2020 Insurance Providers Payer Name Payer Address Payer Phone Subscriber Number Group Number Insured Name Patient Relationship to Insured Coverage Start Date Coverage End Date MEDICARE OF [place] [address] [place] [address] [id number] ROCIO HENSON Self - patient is the insured [facility] [employer] [address] [place], [place] [address] [phone] [id number] ROCIO HENSON Self - patient is the insured Medical (General) History Medical History History ICD Code Denies IN,DM,CVA,Lung disease,renal dise ase She reports three previous c olonoscopies with the [facility]--she reports a hx of colon [...] any sign of malignancy Partial thyroidectomy at [facility] in [facility] 2021 for benign lesion
--- OUTSIDE RECORDS SUMMARY | 2025-04-07 15:20 | XMS_ITS | Data Portability ---
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 Lab calcium, 24-hour urine [address] [facility], [address] [place] [address], [address], 9 21:12:19 creatinine , 24-hour urine [address] [facility], [address] [place] [address], [address], 9 21:12:21 PTH (parathyro id hormone), intact, serum or plasma [address] [facility], [address] [place] [address], [address], 9 14:18:39 magnesium, serum or plasma [address] [facility], [address] [place] [address], [address], 9 14:55:30 TSH, serum or plasma [address] [facility], [address] [place] [address], [address], 9 14:18:39 vitamin D, 25-hydroxy , total, serum [address] [facility], [address] [place] [address], [address], 9 14:18:40 renal function panel, serum [address] [facility], [address] [place] [address], [address], 9 14:55:29 Referral None recorded. Procedures None recorded. Surgeries None recorded. Imaging US, liver [address] [facility] (Imaging), [address], [place], [address], 8 11:16:52 Medication Orders risedronat e 35 mg tablet 2018 019 INTERFACE [id number], [address], [place], [id number], 9 11:10:03 Patient TargetsNo targets recorded. Patient Instructions Encounter Date Encounter Id Patient Instructions Last Modified By Organization Details Last Modified Time 08/13/2018 [id number] advance directives: care instructions sesrick Not available [...] en 0.4-4 .0 mIU/m L. Not Available [address], [address], 01/21/2019 14:18:39 01/22/20 19 01/21/2019 PTH (para thyro id hormo ne), intac t, serum or plasm a PTH intact 22.8 pg/mL 9.6-66 .3 Not Available [address], [address], 01/21/2019 14:18:39 01/22/20 19 01/21/2019 vitam in [...] er than 30 ng/mL . Not Available [address], [address], 01/21/2019 14:18:40 01/22/2001/21/2019 renal funct ion panel , serum glucose 105 mg/dL 70-100 high Not Available [address], [address], 01/21/2019 14:55:29 01/22/2001/21/2019 renal funct ion panel , serum BUN 20 mg/dL 7-18 high Not Available [address], [address], 01/21/2019 14:55:29 01/22/2001/21/2019 renal funct ion panel , serum creatinine 0.8 mg/dL 0.8-1. 3 Not Available [address], [address], 01/21/2019 14:55:29 01/22/2001/21/2019 renal funct ion panel , serum B/C 25.0 ratio Not Available [address], [address], 01/21/2019 14:55:29 01/22/2001/21/2019 renal funct ion panel , serum GFR -non 77.9 mL/mi n Recom doc d GFR by the Natio nal Kidne y Found ation >60 mL/mi n/1.7 3m2 - Vane l <60 mL/mi n/1.7 3m2 - Chron ic Kidne y Disea se <15 mL/mi n/1.7 3m2 - Kidne y Failu re Not Available [address], [address], 01/21/2019 14:55:29 01/22/2001/21/2019 renal funct ion panel , serum GFR - if 89.6 mL/mi n For Afric an Ameri can patie nts: Resul ts Multi plied by 1.21 Not Available [address], [address], 01/21/2019 14:55:29 01/22/2001/21/2019 renal funct ion panel , serum sodium 145 mmol/ L 136-14 5 Not Available [address], [address], 01/21/2019 14:55:29 01/22/2001/21/2019 renal funct ion panel , serum potassium 4.1 mmol/ L 3.5-5. 1 Not Available [address], [address], 01/21/2019 14:55:29 01/22/2001/21/2019 renal funct ion panel , serum chloride 106 mmol/ L 96-107 Not Available [address], [address], 01/21/2019 14:55:29 01/22/2001/21/2019 renal funct ion panel , serum anion gap 10.2 5.0-15 .0 Not Available [address], [address], 01/21/2019 14:55:29 01/22/2001/21/2019 renal funct ion panel , serum CO2 29 mmol/ L 21-32 Not Available [address], [address], 01/21/2019 14:55:29 01/22/2001/21/2019 renal funct ion panel , serum calcium 9.4 mg/dL 8.5-10 .3 Not Available [address], [address], 01/21/2019 14:55:29 01/22/2001/21/2019 renal funct ion panel , serum albumin 3.7 g/dL 3.4-5. 0 Not Available [address], [address], 01/21/2019 14:55:29 01/22/2001/21/2019 renal funct ion panel , serum phosphorous 3.50 mg/dL 2.50-4 .90 Not Available [address], [address], 01/21/2019 14:55:29 01/22/20 19 01/21/2019 magne sium, serum or plasm a magnesium 2.0 mg/dL 1.8-2. 4 Not Available [address], [address], 01/21/2019 14:55:30 02/21/20 19 02/23/2019 calci um, 24-ho ur urine calcium, 24 hour urine 411 mg/24 _h high Refer ence Range 35-25 0 Low calci um diet 35-20 0 TOTAL URINE VOLUM E: 1700/ 24 Not Available [facility] [address], [address], 02/23/2019 21:12:19 02/21/20 19 02/23/2019 creat inine , 24-ho ur urine creatinine, 24 hour urine 0.97 g/24_ h 0.50-2 .15 normal TOTAL URINE VOLUM E: 1700/ 24 Not Available [facility] [address], [address], 02/23/2019 21:12:21 08/08/20 18 07/31/2018 bone densi ty OBSERV ATION: Dual-E nergy X-ray Absorp tiomet ry (DXA) scan [facility] ([place], [place]) on 018. Impres patrick: Based on BMD, [...] This scan was perfor med using the [employer] Primo 10 densit ometer at [facility] , [place] [id number] [place]. Read by: Cristiano acuna PA-C, CCD Electr onical ly signed Estrada rajan Physic cornelia: Jeannette Andersen [facility] (Imaging) [address], [place], [address], 08/09/2018 19:45:09 08/25/20 18 08/25/2018 US, liver [...] Estrada rajan Physic cornelia: Lex Odell MD [facility] (Imaging) [address] , [place], [address], 01/26/2019 09:26:11 01/29/20 19 01/28/2019 MAMMO , [...] fibrog landul ar densit ies. POS - [id number] Electr onical ly Signed by: MERON CORADO on 01/29/20 6:46 PM Interp reted by: Meron Corado MD Signed by: Meron Corado MD 01/28/19 CC Recipi ents: Anjelica Clarke MD - Fax Final result NIELS rodriguez [facility] [address] [address], [address], 01/28/2019 20:22:13 01/29/2001/28/2019 MAMMO , scree tez No observ ation record ed. [email or web address] [address], [address], 02/02/2019 09:08:34 Result Notes Documentation Provider Name [...] There are scattered fibroglandular densities. 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 needs lft's q yr and ultrasoun d of abdomen qyr Calos Valiente MD [address] [place], [place] [address], [address], [facility] 7 14:58:02 Computed tomograp hy result abnormal 623058264 Completed 10/12/2015 Calos Valiente MD [address] [place], [place] [address], [address], [facility] 6 13:28:27 Solitary nodule of lung 792782467 Active [address] low dose repeat CT Sep 2017 Calos Valiente MD [address] [place], [place] [address], [address], [facility] 7 08:18:25 Mixed hyperlip idemia 521240058 Active 2008 Calos Valiente MD [address] [place], [place] [address], [address], [facility] 6 13:28:26 Nervous system symptoms Completed 200409/05/2011 Calos Valietne MD [address] [place], [place] [address], [address], [facility] 6 13:28:26 Colitis, enteriti s and gastroen teritis presumed infectio 927255576 Completed 04/06/2013 Calos Valiente MD [address] [place], [place] [address], [address], [facility] 6 13:28:26 Abnormal findings on diagnost ic imaging of breast 963027106 Completed 200007/18/2009 Calos Valiente MD [address] [place], [place] [address], [address], [facility] 6 13:28:26 Gastroes ophageal reflux disease 466745677 Active 2006 Calos Valiente MD [address] [place] [address] [place], [address], [facility] 6 13:28:26 Non-toxi c uninodul ar goiter 581935397 Completed 200310/28/2014 Calos Valiente MD [address] [place] [address] [place], [address], [facility] 6 13:28:26 Nausea and vomiting 35036831 Completed 200604/06/2013 Calos Valiente MD [address] [place] [address] [place], [address], [facility] 6 13:28:26 Lateral epicondy litis 676632646 Completed 200407/18/2009 Calos Valiente MD [address] [place] [address] [place], [address], [facility] 6 13:28:26 Divertic ulitis of colon 524384324 Active 2006 Calos Valiente MD [address] [place] [address] [place], [address], [facility] 6 13:28:26 Neck pain 01135109 Completed 200307/18/2009 Calos Valiente MD [address] [place], [place] [address], [address], [facility] 6 13:28:26 Atypical facial pain 50075219 Completed 200102/20/2011 Calos Valiente MD [address] [place], [place] [address], [address], [facility] 6 13:28:26 Left lower quadrant pain 114920785 Completed 200704/06/2013 Calos Valiente MD [facility] [place], [address], [facility] 6 13:28:26 Epidermo id cyst of skin 287017121 Completed 09/05/2011 Calos Valiente MD [address] [place], [place] [address], [address], [facility] 6 13:28:26 Epidermo id cyst of skin 790157353 Completed 200102/20/2011 Calos Valiente MD [address] [place] [address] [place], [address], [facility] 6 13:28:26 Sprain of shoulder and upper arm Completed 200604/06/2013 Calos Valiente MD [address] [place] [address] [place], [address], [facility] 6 13:28:26 Acute maxillar y sinusiti s 34713585 Completed 200202/20/2011 Calos Valiente MD [address] [place] [address] [place], [address], [facility] 6 13:28:26 Non-toxi c multinod ular goiter 85063394 Active 2007 Calos Valiente MD [address] [place] [address] [place], [address], [facility] 6 13:28:26 Divertic ular disease of colon 404385861 Completed 200810/28/2014 Calos Valiente MD [address] [place] [address] [place], [address], [facility] 6 13:28:26 Hashimot o thyroidi tis 33846648 Active 2004 get tsh 07/2017 Calos Valiente MD [address] [place], [place] [address], [address], [facility] 6 16:46:00 Acute bronchit is 65271866 Completed 200002/20/2011 Calos Valiente MD [address] [place] [address] [place], [address], [facility] 6 13:28:26 Left upper quadrant pain 927811779 Completed 200002/20/2011 Calos Valiente MD [address] [place] [address] [place], [address], [facility] 6 13:28:26 Decrease in height 43517771 Completed 200608/12/2013 Calos Valiente MD [address] [place] [address] [place], [address], [facility] 6 13:28:26 Headache 16352471 Completed 200007/18/2009 Calos Valiente MD [address] [place] [address] [place], [address], [facility] 6 13:28:26 Sprain of ligament of lumbosac ral joint Completed 200210/28/2014 Calos Valiente MD [address] [place] [address] [place], [address], [facility] 6 13:28:26 Carpal tunnel syndrome 92276672 Completed 200007/18/2009 Calos Valiente MD [address] [place] [address] [place], [address], [facility] 6 13:28:26 Hyperthy roidism 23280808 Completed 200610/21/2017 Calos Valiente MD [address] [place] [address] [place], [address], [facility] 8 12:19:41 Contact dermatit is 81803283 Completed 200809/05/2011 Calos Valiente MD [address] [place] [address] [place], [address], [facility] 6 13:28:26 Senile hyperker atosis 765101445 Completed 200809/05/2011 MD Eddie [place], [address], [facility] 6 13:28:26 Pain of shoulder region 33246901 Completed 200604/06/2013 Calos Valiente MD [address] [place] [address] [place], [address], [facility] 6 13:28:26 Gastro-e sophagea l reflux disease with esophagi tis 078561108 Completed 199910/28/2014 Calos Valiente MD [address] [place] [address] [place], [address], [facility] 6 13:28:26 Clostrid ioides difficil e infectio n 489473404 Completed 200610/28/2014 Calos Valiente MD [facility] [place], [address], [facility] 6 13:28:26 Astigmat ism 56445830 Completed 200507/18/2009 Calos Valiente MD [facility] [place], [address], [facility] 6 13:28:26 Impacted cerumen 93636664 Completed 200102/20/2011 Calos Valiente MD [facility] [place], [address], [facility] 6 13:28:26 Sprain of spinal ligament 941352553 Completed 200007/18/2009 Calos Valiente MD [facility] [place], [address], [facility] 6 13:28:26 Conducti ve hearing loss 62851564 Active 2003 Calos Valiente MD [facility] [place], [address], [facility] 6 13:28:26 Sprain of ankle 31441019 Completed 200809/05/2011 Calos Valiente MD [facility] [place], [address], [facility] 6 13:28:26 Irritabl e bowel syndrome 44985338 Active 2006 Calos Valiente MD [facility] [place], [address], [facility] 6 13:28:26 Breathin g painful 88089568 Completed 200207/18/2009 Calos Valiente MD [facility] [place], [address], [facility] 6 13:28:26 Adverse reaction to substanc e 361578009 Completed 199907/18/2009 MD Eddie Mil[place], [address], [facility] 6 13:28:26 Injury of lower limb 575863153 Completed 200007/18/2009 Calos Valiente MD [address] [place], [place] [address], [address], [facility] 6 13:28:26 Breast lump 11244943 Completed 200507/18/2009 Calos Valiente MD [address] [place], [place] [address], [address], [facility] 6 13:28:26 Gastroin testinal hemorrha ge 55783559 Completed 200504/06/2013 Calos Valiente MD [address] [place], [place] [address], [address], [facility] 6 13:28:26 Nonvenom ous insect bite of multiple sites 143432548 Completed 200604/06/2013 Calos Valiente MD [address] [place], [place] [address], [address], [facility] 6 13:28:26 Mammogra phy abnormal 113682140 Completed 200409/05/2011 Calos Valiente MD [facility] [place], [address], [facility] 6 13:28:26 Common cold 72301801 Completed 200604/06/2013 Calos Valiente MD [address] [place], [place] [address], [address], [facility] 6 13:28:26 Postarti ficial menopaus al syndrome 51510321 Completed 200608/12/2013 Calos Valiente MD [address] [place], [place] [address], [address], [facility] 6 13:28:26 On examinat ion - a rash Completed 200804/06/2013 [place], [address], [facility] 6 13:28:26 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 [place], [address], [facility] 6 13:28:26 Senile osteopor osis 04841866 Completed 200404/06/2013 [place], [address], [facility] 6 13:28:26 Chest pain 01814566 Completed 200804/06/2013 [place], [address], [facility] 6 13:28:26 Osteopor osis 35068677 Active 2004 [place], [address], [facility] 6 13:28:26 Menopaus al symptom 42448864 Completed 200208/12/2013 [place], [address], [facility] 6 13:28:26 Osteoart hritis 556098154 Active 2000 [place], [address], [facility] 6 13:28:27 Solitary cyst of breast 010114465 Completed 200002/20/2011 [place], [address], [facility] 13:28:26 External hemorrho ids 60421226 Completed 200709/05/2011 [place], [address], [facility] 13:28:26 Problem Notes None recorded. Procedures Surgical History Date Name Laterality Status Provider Name and Address Organization Details Recorded Time 08/13/20 18 Medicare Wellness Visit completed Anna Jaeger SKI PATROL [facility] 08/13/2018 15:32:17 11/14/19 18 Armando - Colonoscopy completed Tru Roberts MD [address] [place] [address], [address], [facility] 11/14/2017 10:50:24 07/02/20 17 Cerumen Removal - Irrigation/Lavage completed Glory Shi [facility] 07/02/2017 12:00:33 04/22/20 17 Medicare Wellness Visit completed Binta Lam [facility] 04/22/2017 11:39:26 05/02/20 16 Cerumen Removal - Irrigation/Lavage completed Cecelia Newell [facility] 05/02/2016 14:24:43 04/19/20 16 Medicare Wellness Visit completed Tammy Grace [facility] 04/19/2016 10:18:59 04/18/20 15 Medicare Wellness Visit completed Binta Lam [facility] 04/18/2015 11:56:21 03/23/20 15 Cerumen Removal completed Lety Castellon [facility] 03/23/2015 10:27:25 04/15/20 14 Medicare Wellness Visit completed Binta Lam [facility] 04/15/2014 15:11:55 08/12/20 13 Cerumen Removal completed Lety Castellon SKI PATROL [facility] 08/12/2013 12:22:56 04/06/20 13 Medicare Wellness Visit completed Binta Lam [facility] 04/06/2013 11:39:32 10/06/19 13 Cerumen Removal completed Sebastián Syed RN [facility] 10/06/2012 16:43:15 09/02/20 12 Suture/staple Removal completed Irene Kirk [facility] 09/02/2012 11:19:40 08/26/20 12 Excision completed Calos Valiente MD [address] [place] [address], [address], [facility] 08/26/2012 14:18:50 03/27/20 12 Medicare Wellness Visit completed Binta Lam MA [facility] 03/27/2012 11:35:52 02/20/20 12 Cerumen Removal completed Abbie Lal RN [facility] 02/20/2012 15:58:57 08/09/20 11 Cerumen Removal completed Irene Kirk LPN [facility] 08/09/2011 12:13:13 03/07/20 11 Suture/staple Removal completed Abbie Lal RN [facility] 03/07/2011 11:51:06 02/27/20 11 Excision completed Calos Valiente MD [address] [place] [address], [address], [facility] 02/26/2011 10:58:49 02/21/20 11 Medicare Annual Wellness Visit completed Binta Lam MA [facility] 02/20/2011 09:28:23 02/21/20 11 Medicare Risk for Falls Screen completed Calos Valiente MD [address] [place] [address], [address], [facility] 02/20/2011 09:40:31 02/21/20 11 Advanced Care Planning completed Calos Valiente MD [address] [place] [address], [address], [facility] 02/20/2011 09:53:51 01/19/20 11 Cerumen Removal completed Mary Angel NP [address] [place], [address], [facility] 01/18/2011 17:44:54 06/09/20 10 Cerumen Removal completed Lety Castellon LPN [facility] 06/09/2010 15:25:27 03/28/20 10 Corticosteroid Injection completed Calos Valiente MD [address] [place] [address], [address], [facility] 03/28/2010 11:03:57 12/29/19 10 Cerumen Removal completed Zeinab Greene LPN [facility] 12/28/2009 09:50:55 06/01/20 09 Cerumen Removal completed Irene Kirk LPN [facility] 06/01/2009 12:02:59 06/12/20 06 completed Not Available [facility] 08/09/2011 06:05:52 Imaging Results None recorded. Procedure Notes None recorded. Medical Equipment None Reported. Allergies Allergen ID Allergen Name Allergen Category Reaction Reaction Severity Criticality Documentation Date Start Date Code Code System Note Provider Name and Address Organization Details Recorded Time 54340 Substance with sulfonami de structure and antibacte rial mechanism of action (substanc e) medicatio n Not available Not available Not available 09/09/2010 96301 8003 SNOMED Not Available [facility] 1 06:05:41 Medications Name Sig Start Date [...] Not Available Not Available Not Available Fluvirin 6524-3453 45 mcg (15 mcg x 3)/0.5 mL [...] Updated DateTime 01/21/2019 155.58 cm 24.9 kg/m2 56225.79 g 80 /min 122/60 mm[Hg] ZULEMA Rincon [facility] 01/21/2019 10:31:03 Date Recorded Body height Body mass index (BMI) Body weight Heart rate Systolic And Diastolic Provider Name and Address Organization Details Last Updated DateTime 07/02/2018 154.94 cm 26.5 kg/m2 56144.93 g 84 /min 130/70 mm[Hg] Glory Colindres [facility] 07/02/2018 13:50:20 Date Recorded Body height Body mass index (BMI) Body weight Heart rate Systolic And Diastolic Provider Name and Address Organization Details Last Updated DateTime 07/16/2018 155.58 cm 25.9 kg/m2 93292.75 g 82 /min 140/78 mm[Hg] [facility]16[facility]2018 11:07:18 Date Recorded Body height Body mass index (BMI) Body weight Heart rate Systolic And Diastolic Provider Name and Address Organization Details Last Updated DateTime 07/29/2019 155.58 cm 24.2 kg/m2 07084.85 g 86 /min 138/66 mm[Hg] Patricia Mills [facility] 07/29/2019 10:46:19 Date Recorded Body height Body mass index (BMI) Body weight Heart rate Respiratory rate Systolic And Diastolic Provider Name and Address Organization Details Last Updated DateTime 8 155.58 cm 25.9 kg/m2 78222.1 5 g 96 /min 20 /min 130/60 mm[Hg] Anna Heide [facility] 8 15:38:38 Social History Question Answer Notes LastModified by Organizat ion Details LastModified Time Tobacco Smoking Status Never Smoker Not Available [facility] 08/09/2011 04:53:18 Do You Have An [...] virus, trivalent, preservative 9 completed Not Available [facility] 10/10/2019 02:38:54 Influenza, split virus, trivalent, preservative 1 completed Not Available [facility] 10/10/2019 02:31:48 influenza, unspecified formulation 2 completed Not Available [facility] 08/08/2011 05:21:07 influenza, unspecified formulation 5 completed Not Available [facility] 08/08/2011 05:21:29 pneumococcal polysaccharide [id number] 7 completed Not Available [facility] 08/08/2011 05:21:29 influenza, unspecified formulation 7 completed Not Available [facility] 08/08/2011 05:21:55 Td(adult) unspecified formulation 8 completed Not Available [facility] 08/08/2011 05:21:55 influenza, unspecified formulation 8 completed Not Available [facility] 08/08/2011 05:21:55 Influenza, split virus, trivalent, preservative 2 completed Not Available [facility] 10/10/2019 02:33:39 Influenza, split virus, trivalent, PF 3 completed Not Available [facility] 10/10/2019 02:18:57 zoster live 8 completed Not Available [facility] 08/08/2011 05:22:52 Pneumococcal conjugate PCV 13 5 completed Not Available [facility] 10/10/2019 02:28:18 Novel [id number] 0 completed Not Available [facility] 10/10/2019 02:25:07 Influenza, high-dose, trivalent, PF 6 completed Not Available [facility] 10/10/2019 02:21:03 Influenza, split virus, trivalent, PF 4 completed Not Available [facility] 2019 02:10:39 Influenza, high-dose, trivalent, PF 7 completed Not Available [facility] 10/10/2019 02:21:41 Influenza, high-dose, trivalent, PF 5 completed Emmanuelle Perez RN, BSN [facility] 07/17/2015 12:34:45 Influenza, high-dose, trivalent, PF 8 completed Not Available [facility] 10/10/2019 02:23:03 Influenza, split virus, trivalent, preservative 0 completed Not Available [facility] 10/10/2019 02:27:08 Past Encounters Encounter ID Performer Location Encounter Start Date Encounter Closed Date Diagnosis/Indication Diagnosis SNOMED-CT Code Diagnosis ICD10 Code Diagnosis Note [id number] Calos Valiente MD , [facility], OFF[address] [place] [address] 08/21/2000 11:45:00 10/13/2008 02:02:29 [id number] Calos Valiente MD , [facility], [address] [place] [address] 09/02/2000 14:15:00 10/13/2008 02:02:29 [id number] Calos Valiente MD [facility] [address] [place] [address] 01/11/2001 10:00:00 10/13/2008 02:02:29 [id number] Calos Valiente MD , [facility], [address] [place] [address] 02/19/2001 16:15:00 10/13/2008 02:02:29 [id number] Calos Valiente MD , [facility], OFF[address] [place] [address] 02/26/2001 10:30:00 10/13/2008 02:02:29 [id number] Calos Valiente MD , [facility], [address] [place] [address] 01/02/2001 10:30:00 10/13/2008 02:02:29 [id number] Calos Valiente MD , [facility], [address] [place] [address] 03/28/2001 11:00:00 10/13/2008 02:02:29 [id number] [facility] Radiology , [address] [address] 03/20/2001 14:00:00 10/13/2008 02:02:29 [id number] Calos Valiente MD , [facility], OFF[address] [place] [address] 07/23/2001 11:45:00 10/13/2008 02:02:29 [id number] MD FRANKO Milian, [facility], [address] [place] [address] 09/26/2001 14:45:00 10/13/2008 02:02:29 [id number] Calos Valiente MD , [facility], [address] [place] [address] 11/21/2001 15:30:00 10/13/2008 02:02:29 [id number] Calos Valiente MD , [facility], OFF[address] [place] [address] 12/29/2001 09:45:00 10/13/2008 02:02:29 [id number] Calos Valiente MD , [facility], OFF[address] [place] [address] 03/23/2002 10:28:26 10/13/2008 02:02:29 [id number] Calos Valiente MD , [facility], [address] [place] [address] 04/06/2002 10:46:02 10/13/2008 02:02:29 [id number] TREATMENT NURSE [facility], [facility], [address] [place] [address] 04/15/2002 09:55:33 10/13/2008 02:02:29 [id number] [facility] Radiology , [facility] [address] [place] [address] 04/20/2002 12:03:48 10/13/2008 02:02:[id number] [facility] - [facility] [address] [facility] [place] [address] 04/24/2002 11:52:43 10/13/2008 02:02:29 [id number] Calos Valiente MD , [facility], OFF[address] [place] [address] 05/08/2002 10:10:02 10/13/2008 02:02:29 [id number] Calos Valiente MD , [facility], OFF[address] [place] [address] 06/02/2002 10:02:44 10/13/2008 02:02:29 [id number] Calos Valiente MD , [facility], OFF[address] [place] [address] 09/03/2002 15:26:30 10/13/2008 02:02:29 [id number] Calos Valiente MD , [facility], OFF[address] [place] [address] 10/20/2002 15:09:26 10/13/2008 02:02:29 [id number] Calos Valiente MD , [facility], [address] [place] [address] 11/18/2002 15:24:24 10/13/2008 02:02:29 [id number] MD FRANKO Milian, [facility], OFF[address] [place] [address] 02/17/2003 11:13:26 10/13/2008 02:02:29 [id number] [facility] - [facility] [address] [place] [address] 04/01/2003 09:02:04 10/13/2008 02:02:29 [id number] MD FRANKO Milian, [facility], OFF[address] [place] [address] 03/31/2003 10:18:52 10/13/2008 02:02:29 [id number] [facility] Y Technolog[facility] st Radiology , [facility] [address] [place] [address] 04/06/2003 13:30:30 10/13/2008 02:02:[id number] [facility] - [address] [address] 04/21/2003 11:18:36 10/13/2008 02:02:29 [id number] [facility] BONE DENSITY TECH Radiology , [facility] [address] [place] [address] 04/28/2003 09:22:40 10/13/2008 02:02:29 [id number] MD FRANKO Milian, [facility], OFF[address] [place] [address] 09/07/2003 09:47:15 09/07/2003 12:29:27 [id number] MD FRANKO Milian, [facility], OFF[address] [place] [address] 01/24/2004 14:57:53 01/24/2004 17:30:12 [id number] MD FRANKO Milian, [facility], OFF[address] [place] [address] 04/05/2004 10:26:08 04/05/2004 12:21:18 [id number] [facility] Radiology , [facility] [address] [place] [address] 04/12/2004 11:02:10 04/13/2004 09:25:21 [id number] MD FRANKO Milian, [facility], OFF[address] [place] [address] 04/17/2004 15:30:13 04/17/2004 16:37:[id number] [facility] - [address] [place] [address] 04/24/2004 15:03:32 04/24/2004 15:06:17 [id number] Calos Valiente MD , [facility], OFF[address] [place] [address] 05/16/2004 14:21:17 05/16/2004 15:36:35 [id number] Roberto Carlos Johnson , PT Physical Therapy, [facility] [address] [place] [address] 05/22/2004 14:17:10 05/22/2004 15:34:02 [id number] Calos Valiente MD , [facility], OFF[address] [place] [address] 06/12/2004 14:03:54 06/13/2004 08:44:24 [id number] Calos Valiente MD , [facility], OFF[address] [place] [address] 11/28/2004 10:48:03 11/28/2004 14:51:49 [id number] [facility] BONE DENSITY TECH Radiology , [address] [address] 04/02/2005 11:29:30 04/03/2005 08:57:38 [id number] Calos Valiente MD , [facility], OFF[address] [place] [address] 04/09/2005 10:33:55 04/09/2005 13:48:49 [id number] [facility] Radiology , [facility] [address] [place] [address] 04/17/2005 10:42:51 10/13/2008 02:02:29 [id number] [facility] , [facility] [address] [place] [address] 05/08/2005 16:07:24 10/13/2008 02:02:29 [id number] MD FRANKO Milian, [facility], OFF[address] [place] [address] 05/10/2005 15:23:51 10/13/2008 02:02:29 [id number] [facility] - [facility] [address] [place] [address] 07/04/2005 09:43:47 07/04/2005 09:44:04 [id number] Calos Valiente MD , [facility], [address] [place] [address] 08/01/2005 16:31:52 10/13/2008 02:02:29 [id number] Kathie Velasquez, OD Eye Care, [facility] [address] [place] [address] 03/18/2006 14:20:49 10/13/2008 02:02:29 [id number] Calos Valiente MD , [facility], OFF[address] [place] [address] 03/28/2006 14:21:50 03/28/2006 16:26:32 [id number] Calos Valiente MD , [facility], [address] [place] [address] 04/11/2006 08:54:06 04/11/2006 11:24:55 [id number] FP TREATMENT NURSE [facility], [facility], [address] [place] [address] 04/15/2006 14:57:06 04/15/2006 16:14:28 [id number] [facility], NIELS SAMS MD ASP, [address] [address] 06/12/2006 08:17:24 06/13/2006 07:25:18 [id number] MD FRANKO Milian, [facility], [address] [place] [address] 06/27/2006 15:08:52 06/27/2006 16:35:06 [id number] Calos Valiente MD , [facility], OFF[address] [place] [address] 11/20/2006 11:08:58 11/21/2006 07:58:56 [id number] MD FRANKO Milian, [facility], [address] [place] [address] 12/24/2006 11:00:59 12/25/2006 11:23:21 [id number] Roberto Carlos Johnson , PT Physical Therapy, [facility] [address] [place] [address] 12/27/2006 15:53:15 12/30/2006 17:04:09 [id number] Roberto Carlos Johnson , PT Physical Therapy, [address] [address] 01/13/2007 10:55:41 01/13/2007 16:17:17 [id number] Roberto Carlos Johnson , PT Physical Therapy, [address] [address] 01/27/2007 14:28:30 01/28/2007 09:18:42 [id number] [facility] - [address] [address] 01/27/2007 10:43:06 01/27/2007 10:43:26 [id number] Roberto Carlos Johnson , PT Physical Therapy, [address] [address] 02/10/2007 10:22:04 02/10/2007 15:19:14 [id number] Roberto Carlos Johnson , PT Physical Therapy, [address] [address] 02/19/2007 11:53:15 02/19/2007 14:13:02 [id number] Calos Valiente MD , [facility], OFF[address] [place] [address] 02/20/2007 11:06:26 02/20/2007 15:54:33 [id number] [facility] RADIOLOGY [facility]ologi [facility] , [address] [address] 02/20/2007 11:31:53 02/21/2007 09:16:35 [id number] Niels Sams MD , [facility], [address] [place] [address] 03/01/2007 10:28:47 03/01/2007 13:23:12 [id number] MD FRANKO Milian, [facility], [address] [place] [address] 04/02/2007 15:01:36 04/03/2007 08:21:50 [id number] MD FRANKO Milian, [facility], [address] [place] [address] 04/14/2007 15:11:02 04/14/2007 16:37:50 [id number] MD FRANKO Milian, [facility], [address] [place] [address] 06/09/2007 15:04:07 06/13/2007 12:49:41 [id number] [facility] BONE DENSITY TECH Radiology , [facility] [address] [place] [address] 06/26/2007 10:13:18 06/27/2007 09:20:06 [id number] Calos Valiente MD , [facility], [address] [place] [address] 07/30/2007 15:24:07 10/13/2008 02:02:29 [id number] Calos Wu MD , [facility], [address] [place] [address] 09/20/2007 09:17:48 10/13/2008 02:02:29 [id number] Calos Valiente MD , [facility], [address] [place] [address] 12/09/2007 15:04:32 10/13/2008 02:02:29 [id number] Calos Valiente MD , [facility], [address] [place] [address] 01/30/2008 11:39:32 10/13/2008 02:02:29 [id number] Calos Valiente MD , [facility], [address] [place] [address] 04/13/2008 15:18:25 10/13/2008 02:02:29 [id number] [facility] FLU CLINIC , [facility], [address] [place] [address] 07/14/2008 16:21:35 07/14/2008 16:21:40 [id number] Calos Valiente MD , [facility], [address] [place] [address] 08/02/2008 15:47:27 10/13/2008 02:02:29 [id number] Calos Valiente MD , [facility], [address] [place] [address] 10/06/2008 14:26:37 10/13/2008 02:02:29 [id number] Calos Valiente MD , [facility], [address] [place] [address] 11/18/2008 14:26:17 11/24/2008 11:20:41 [id number] [facility] RADIOLOGY Technologi [facility] , [facility] [address] [place] [address] 11/18/2008 14:43:54 11/18/2008 17:10:40 [id number] MD FRANKO Milian, [facility], [address] [place] [address] 12/15/2008 12:05:15 12/17/2008 12:42:38 [id number] MD FRANKO Milian, [facility], [address] [place] [address] 12/23/2008 15:34:50 12/27/2008 14:06:35 [id number] Calos Valiente MD , [facility], [address] [place] [address] 02/09/2009 14:28:33 02/11/2009 15:21:27 [id number] Calos Valiente MD , [facility], [address] [place] [address] 04/11/2009 15:07:16 04/13/2009 11:16:04 [id number] Calos Valiente MD , [facility], [address] [place] [address] 05/04/2009 15:54:44 05/05/2009 14:57:03 [id number] BOOM Steele , [facility], [address] [place] [address] 06/01/2009 11:10:23 06/06/2009 11:28:11 [id number] [facility] - [facility] [address] [place] [address] 04/11/2009 15:59:01 04/11/2009 15:59:16 [id number] [facility] BONE DENSITY TECH Radiology , [facility] [address] [place] [address] 07/25/2009 11:08:41 07/27/2009 11:30:05 [id number] Calos Valiente MD , [facility], [address] [place] [address] 09/01/2009 11:05:17 09/05/2009 09:52:21 [id number] MD FRANKO Milian, [facility], [address] [place] [address] 10/06/2009 11:03:54 10/07/2009 12:30:46 [id number] Calos Valiente MD , [facility], [address] [place] [address] 11/04/2009 15:37:36 11/07/2009 14:10:42 [id number] Calos Valiente MD , [facility], [address] [place] [address] 12/13/2009 15:26:07 12/15/2009 10:01:44 [id number] Calos Valiente MD , [facility], [address] [place] [address] 12/28/2009 09:09:33 12/30/2009 09:59:30 [id number] Calos Valiente MD , [facility], [address] [place] [address] 01/10/2010 10:54:36 01/10/2010 15:02:05 [id number] Calos Valiente MD , [facility], [address] [place] [address] 03/28/2010 10:12:46 03/31/2010 08:59:43 [id number] [facility] RADIOLOGY Technologi [facility] , [facility] [address] [place] [address] 03/28/2010 11:03:26 03/29/2010 12:23:35 [id number] Calos Valiente MD , [facility], [address] [place] [address] 04/17/2010 09:46:06 04/18/2010 09:19:57 [id number] Calos Valiente MD , [facility], [address] [place] [address] 06/09/2010 14:40:41 06/12/2010 09:51:34 [id number] SIMON Glez, [facility], [address] [place] [address] 09/09/2010 12:21:55 09/13/2010 12:07:02 [id number] SIMON Barrera, [facility], [address] [place] [address] 01/18/2011 16:27:53 01/22/2011 08:37:10 [id number] MD FRANKO Milian, [facility], [address] [place] [address] 02/07/2011 15:45:56 02/09/2011 10:42:53 [id number] MD FRANKO Milian, [facility], [address] [place] [address] 02/20/2011 09:12:18 02/22/2011 09:23:32 [id number] Calos Valiente MD , [facility], [address] [place] [address] 02/26/2011 10:29:49 02/27/2011 14:00:13 [id number] FP TREATMENT NURSE [facility], [facility], [address] [place] [address] 03/07/2011 10:28:05 03/09/2011 08:40:46 [id number] Calos Valiente MD , [facility], [address] [place] [address] 03/28/2011 14:53:11 03/29/2011 10:06:36 [id number] Lex Stone MD , [facility], [address] [place] [address] 05/13/2011 09:40:13 05/13/2011 10:11:20 [id number] Calos Valiente MD , [facility], [address] [place] [address] 05/23/2011 14:58:08 05/23/2011 15:28:50 [id number] Calos Valiente MD , [facility], [address] [place] [address] 05/30/2011 15:12:19 05/30/2011 15:39:54 [id number] Calos Valiente MD , [facility], [address] [place] [address] 06/15/2011 09:27:02 06/18/2011 11:58:32 [id number] [facility] BONE DENSITY TECH Radiology , [facility] [address] [place] [address] 08/09/2011 10:57:20 08/10/2011 12:04:08 [id number] Calos Valiente MD , [facility], [address] [place] [address] 08/09/2011 11:24:36 08/10/2011 08:59:25 [id number] MD FRANKO Milian, [facility], [address] [place] [address] 09/05/2011 15:47:18 09/07/2011 09:03:03 [id number] Calos Valiente MD , [facility], [address] [place] [address] 12/24/2011 16:10:22 12/24/2011 16:41:25 [id number] Angela Cole MD , [facility], [address] [place] [address] 01/02/2012 15:17:18 01/02/2012 16:01:26 [id number] Rocio Patel PA-C , [facility], [address] [place] [address] 02/20/2012 11:47:36 02/21/2012 10:06:54 [id number] Calos Valiente MD , [facility], [address] [place] [address] 02/28/2012 15:26:37 02/29/2012 08:24:19 [id number] Calos Valiente MD , [facility], [address] [place] [address] 03/27/2012 11:27:30 03/27/2012 11:58:47 [id number] Calos Valiente MD , [facility], [address] [place] [address] 05/22/2012 16:00:31 05/23/2012 10:13:25 [id number] Calos Valiente MD , [facility], [address] [place] [address] 05/27/2012 16:24:54 05/28/2012 12:48:23 [id number] Calos Valiente MD , [facility], [address] [place] [address] 08/26/2012 13:46:36 08/26/2012 14:18:22 [id number] FP TREATMENT NURSE [facility], [facility], [address] [place] [address] 09/02/2012 10:43:50 09/03/2012 14:05:42 [id number] Mary Angel NP , [facility], [address] [place] [address] 10/06/2012 15:56:03 10/06/2012 16:37:30 [id number] Calos Valiente MD , [facility], [address] [place] [address] 10/15/2012 09:52:23 10/16/2012 12:54:52 [id number] Sharif Traylor MD , [facility], [address] [place] [address] 10/18/2012 09:49:09 10/20/2012 13:17:23 [id number] Calos Valiente MD , [facility], [address] [place] [address] 11/05/2012 10:46:36 11/06/2012 11:24:05 [id number] Calos Valiente MD , [facility], [address] [place] [address] 04/06/2013 11:19:58 04/07/2013 13:17:17 [id number] Calos Valiente MD , [facility], [address] [place] [address] 06/10/2013 06:21:35 06/10/2013 16:25:35 Influenza vaccine needed [id number] Calos Valiente MD , [facility], [address] [place] [address] 08/12/2013 11:54:44 08/13/2013 10:15:52 Impacted cerumen [id number] successful IRRIGATION DONE, f/u prn, [id number] Troy Cedeno MD , [facility], [address] [place] [address] 08/19/2013 16:26:04 08/24/2013 10:18:40 Bursitis of shoulder [id number] Patient with clinical presentati on of left [...] contact the clinic if her symptoms worsen. [id number] Calos Valiente MD , [facility], [address] [place] [address] 10/07/2013 10:12:00 10/08/2013 09:45:51 Contusion of chest [id number] tylenol, heat or ice, rest, reassuran e [id number] Calos Valiente MD , [facility], [address] [place] [address] 12/28/2013 14:42:12 12/29/2013 09:52:41 Irritable bowel syndrome 70194562 I still think she has mild IBS. avoid possible offending foods like fatty foods, tomatos products, dairy. call if not settling down. [id number] Calos Valiente MD , [facility], [address] [place] [address] 03/29/2014 13:59:52 03/30/2014 16:21:31 Dysuria [id number] resolved. never sure she had UTI- as there was never a urinanalys is at first before med. in hospital-h ad microscpic blood in urine but culture was negative.a nd repeat u/a neg she couldhave had a viral infection or partially treated uti. plan stop ceftin today. and follow I review hosptial labs and H and P. [id number] Calos Valiente MD , [facility], [address] [place] [address] 04/15/2014 14:58:21 04/16/2014 09:36:29 Adult health examination [id number] see Risk Assessment and Lifestyle Change Counseling section above Counseling [id number] [facility] [id number] [facility] [address] [place]. urge weight bearing exericses Gastroesop hageal reflux disease [id number] controlled nexium otc [id number] CANDY Otto , [facility], [address] [place] [address] 06/29/2014 10:48:45 06/30/2014 08:34:30 Strain of muscle of face 027791984 probable muscular strain of left side of face, advised to use ice to affected area several times a day, ibuprofen 200 mg 3 tablets 3 times a day and if no improvemen t in the next 5-7 days return to office for further reevaluati on. [id number] Calos Valiente MD , [facility], [address] [place] [address] 10/27/2014 11:12:18 11/04/2014 12:55:15 Urinary tract infectious disease 13991844 recurrent due to postmenopa usal- not present now- could try to treat self next time gets typical sx. If not better, call . could consider estrogen cream. no sx now rx given, if needs in future. [id number] Calos Valiente MD , [facility], [address] [place] [address] 01/27/2015 12:12:28 02/01/2015 15:19:53 Acute bronchitis 40345095 rest, hot liquids, call if worse otc cough med and tylenol [id number] Jules Cortés MD , [facility], [address] [place] [address] 03/12/2015 11:30:34 03/12/2015 12:01:48 Pain of joint of hand [id number] Calos Valiente MD , [facility], [address] [place] [address] 03/23/2015 09:46:48 04/01/2015 14:41:46 Synovial cyst 310202385 Otalgia 81802509 no sour ce found- follow Malignant melanoma of eye 765319815 going to [facility] tomorrow Impacted cerumen 51534616 successful IRRIGATION DONE, f/u prn, [id number] Lex Whelan MD , [facility], [address] [place] [address] 04/08/2015 16:13:28 04/08/2015 17:32:38 Carpal tunnel syndrome 77463395 [id number] Calos Valiente MD , [facility], [address] [place] [address] 04/18/2015 11:36:54 04/18/2015 12:27:32 Adult health examination [id number] see Risk Assessment and Lifestyle Change Counseling section above Counseling [id number] Active or passive immunization 407945800 Malignant melanoma of eye 088971304 [facility] abnormal [id number] there is a small nodule found on CT scan. [facility] wants repeat CT scan in three months Senile hyperkeratosis 139719728 on neck ret for removal md at [facility] wants it removed.It isn't malignant. [id number] Calos Valiente MD , [facility], [address] [place] [address] 05/18/2015 12:10:39 05/19/2015 12:07:05 Senile hyperkeratosis 473161969 cryo and curettage done [id number] Viral Baig MD , [facility], [address] [place] [address] 08/28/2015 10:00:58 08/28/2015 10:25:37 Diverticulitis of colon 293778402 K57.32 [id number] Calos Valiente MD , [facility], [address] [place] [address] 08/31/2015 13:20:53 08/31/2015 14:10:01 Left lower quadrant pain [id number] R10.32 possible mild diverticul tis. add flagyll. call next week with progress note. couldn't giveadequa te amount of urine. if not better in 2 days- get urine dip and micro and u/c to r/o stones and infection [id number] Calos Valiente MD , [facility], [address] [place] [address] 10/12/2015 12:07:23 10/13/2015 13:48:26 Irritable bowel syndrome 08500637 K58.9 I still think she has mild IBS. try colace for constipati on. cont culturelee . and veggies. [id number] Calos Valiente MD , [facility], [address] [place] [address] 04/19/2016 10:14:44 04/19/2016 11:01:52 Adult health examination 657813963 Z00.00 see Risk Assessment and Lifestyle Change Counseling section above Counseling 838573943 Z71 .9 Gastroesop hageal reflux disease 103072519 K21.9 controlled with omeprazole Osteoporosis 90605241 M8 1.[address] Murray. urge weight bearing exericises Malignant melanoma of eye 441268476 C69.90 being treated at [facility] lft's tested for melanoma Irritable bowel syndrome 57492273 K58.9 controled with current diet [id number] Calos Valiente MD , [facility], [address] [place] [address] 05/02/2016 13:43:07 05/08/2016 13:54:13 Pain of shoulder region 28096345 M25.512 maybe mild impingemen t syndrome - getting better on own plan try nsaid. ret prn Impacted cerumen 2463283 6 H61.23 successful IRRIGATION DONE, f/u prn, [id number] Calos Valiente MD , [facility], [address] [place] [address] 07/04/2016 11:10:41 07/04/2016 11:44:33 Active or passive immunization 277634821 Z23 Chest wall pain 13928923 6 R07.89 soft tissue bruise probably from tight bra- recommend larger bra until loses weight [id number] Calos Valiente MD , [facility], [address] [place] [address] 09/25/2016 12:13:03 09/25/2016 12:59:28 Irritable bowel syndrome 00893403 K58.9 try eliminatin g fructans and galacto-ol iosacchari dse no wheat , barley oats. 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 follow [id number] Calos Valiente MD , [facility], [address] [place] [address] 04/22/2017 11:35:56 04/22/2017 12:24:28 Adult health examination 554417629 Z00.00 see Risk Assessment and Lifestyle Change Counseling section above Counseling 692665676 Z71 .9 Irritable bowel syndrome 71104776 K58.9 better with certain dietary restrictio ns Malignant melanoma of eye 560929544 C69.90 see opth in [place] Osteoporosis 48567956 M8 1.[address] Murray. urge weight bearing exericises [id number] Lex Whelan MD , [facility], [address] [place] [address] 06/04/2017 16:35:56 06/04/2017 17:17:19 Hordeolum externum of upper eyelid 290898111 H00.398 [id number] Toño Lau MD , [facility], [address] [place] [address] 06/06/2017 16:15:53 06/07/2017 08:24:28 Active or passive immunization 136449501 Z23 [id number] Calos Valiente MD , [facility], [address] [place] [address] 07/02/2017 11:12:18 07/03/2017 10:13:51 Irritable bowel syndrome 00420180 K58.9 tried various dietary restrictio n and fiber supplement s, TTG neg. 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 on probiotics - get GI input besides due for another colonoscop y Internal hemorrhoids 904 80232 K64.8 continue proctozone [id number] Calos Valiente MD , [facility], [address] [place] [address] 10/21/2017 11:42:26 10/21/2017 12:36:17 Irritable bowel syndrome 81083875 K58.9 quiet now Malignant melanoma of eye 986505516 C69.90 see opth in [place] Osteoporosis 57903327 M8 1.[address] Estrada Gastroesop hageal reflux disease 415560947 K21.9 PPI qd but take one day off a week [id number] Tru Roberts MD [facility], [facility] [address] [place] [address] 11/14/2017 08:53:54 11/14/2017 13:51:26 [id number] Sawyer Estrada MD Endocrino log, [facility] [address] [place] [address] 04/30/2018 14:51:37 04/30/2018 16:15:53 Osteoporosis 67992085 M81.0 -reassess bone density test -dairy 3 times daily -practice balance by dancing -ca 600 +d tab, 1/2 tab am and 1/2 tab pm -vit d 1000units tabs, 2 tab winter, 1 summer Vitamin D deficiency 347 98749 E55.9 [id number] Neils Sams MD , [facility], [address] [place] [address] 07/02/2018 13:41:37 07/02/2018 14:24:34 Active or passive immunization 432688141 Z23 Strain of muscle and/or tendon of lower leg 173237353 S86.911A ankle strain- rest, rom exercises Injury of finger 3746053 8 S69.92XA strst, rom exercise- f/u if not improving in coming 1-2 wkseain- [id number] Sawyer Estrada MD Endocrino logy, [facility] [address] [place] [address] 07/16/2018 10:45:31 07/16/2018 11:47:48 Osteoporosis 35304707 M81.0 -reassess bone density test -dairy 3 times daily -practice balance by dancing -limit calcium to 250mg via supplement -vit d 1000units tabs, 2 tab winter, 1 summer Vitamin D deficiency 347 49131 E55.9 [id number] Niels Sams MD , [facility], [address] [place] [address] 08/13/2018 15:28:45 08/13/2018 16:22:01 Adult health examination 907866462 Z00.00 see Risk Assessment and Lifestyle Change Counseling section above Counseling 567805972 Z71 .9 Depression screening 171 743921 Z13.89 depression screening tool administer ed, entered into emr, scored and discussed, time greater than 7.5 minutes Solitary n odule of lung 946517173 R91.1 f/u ct with no change out far enough to consider benign Malignant melanoma of eye 329921244 C69.90 followed by [facility] general Gastroesop hageal reflux disease 860526078 K21.9 continue pantaprazo le Pre-surger y evaluation 494227290 Z01.818 clear for eye surgery [id number] Sawyer Estrada MD Endocrino logy, [facility] [address] [place] [address] 01/21/2019 10:17:59 01/21/2019 11:16:38 Osteoporosis 30850472 M81.0 -dairy or dairy replacemen t 2 times daily-spin ach-practi ce balance by dancing - no calcium supplement s-vit d 1000units tabs, 2 tab winter, 1 summer -labs, if normal, ask me to order to order prolia, then authorize prolia to be sent to [facility] for administra tion, then book appointmen t with endocrine nurse to administer every 6mo Vitamin D deficiency 347 89746 E55.9 [id number] Sawyer Estrada MD Endocrino logy, [facility] [address] [place] [address] 07/29/2019 10:25:03 07/29/2019 13:23:12 Osteoporosis 42701797 M81.0 -add risedronat e 35 mg by mouth once weekly with a full glass of water on an empty stomach while sitting or standing; do not lie down after taking risedronat e for at least 1h -soy milk or other replacemen t dairy once daily, almonds-ad d kale-aim for calcium 1000mg via diet then recheck urine calcium 24h Vitamin D deficiency 347 37654 E55.9 -vitamin d 1000units by mouth once [...] OPTIONS - PLAN T2 (INDEMNITY) Irene Porter [id number] Irene Porter 08/07/2019 1 [employer] [place] [id number] 1 Irene Jessy Charlotte [id number] Irene Porter 08/07/2019 1 [employer]ET[employer] (HMO) [id number] Irene Jessy Charlotte [id number] Irene Porter 08/07/2019 1 [place]IC[place]: [facility] Irene Porter [id number] Irene Porter 08/07/2019 2 AARP (MEDICARE SUPPLEMENT) Irene Porter [id number] Irene Porter 08/07/2019 1 [employer] - [employer] (HMO) [id number] Irene Jessy Charlotte [id number] Irene Porter Notes Date Note Type Note Provider Name and Address Organization Details Recorded Time 07/02/2018 text/html AFTER GARDENING 4 days ago, R foot pain and left 3rd finger had been hurting x > month. no swelling, Irene Sams, [facility] [address] [place] [address], [address], [facility] 07/05/2018 14:22:41 07/16/2018 text/html 77yo woman, [...] return as needed. she Sawyer Estrada MD [address] [place] [address], [address], [facility] 07/16/2018 11:51:02 08/13/2018 text/html Physical Exam/FemaleReported bypatient.PHAPatient is here for a Wellness Visit. She describes her health status as fair. Patient's health is worse than last year.Notes:being treated for melanoma right eye at [facility] and [facility]-is scheduled for surgery nd needs [...] milk- IBS is better Niels Sams MD [address] [place] [address], [address], [facility] 08/21/2018 15:29:01 01/21/2019 text/html 78yo woman, [...] no bone breaks lately Sawyer Estrada MD [address] [place] [address], [address], [facility] 01/21/2019 10:59:03 07/29/2019 text/html 78yo woman, [...] 600mg calcium once daily Sawyer Estrada MD [address] [place] [address], [phone], [facility] 07/29/2019 11:14:10 OBGyn Episode No OBEpisode recorded.
[2025-04-07 16:19] LABS: Appearance Urine Clear; Glucose Urine UA Negative (Negative); PH 6.5 (5.0-9.0); Specific Gravity - Urine 1.020 (1.005-1.025); UMIC TRIGGER UACC YES
[2025-04-07 16:42] LABS: UACC Culture Trigger YES
== END 2025-04-07 12:46 | disposition home or self-care (01) ==
LOC: HO.HMGCLNP 12:45
PROVIDERS: PCP Nurse Practitioner Family; Visit Provider Nurse Practitioner Family
DX: G89.29 Other chronic pain (principal); M54.50 Low back pain, unspecified
CPT/HCPCS: 81001; 87086

== ENCOUNTER 2025-04-19 09:15 | Day surgery (SDC) | payer MEDICARE, SELFPAY ==
--- OUTSIDE RECORDS SUMMARY | 2025-04-08 14:29 | XMS_ITS | Patient Health Record ---
Author Organization [facility] Address [address] [place] [address] Care Team Providers Care Boiler Attendant Name Role Phone Anjelica Clarke MD Primary Care Provider rFank Mccoy Unavailable [phone] Allergies Allergen (clinical drug ingredient) Drug/Non Drug [...] Status Risk Notes Problem Irritable bowel syndrome (67034860) Irritable bowel syndrome (K58.9) Active confirmed Problem 976412120 Gastroesophageal reflux disease, esophagitis presence not specified (K21.9) Active confirmed Problem Hiatal hernia (77507653) Hiatal hernia (K44.9) Active confirmed Problem 66587150 Constipation, unspecified constipation type (K59.00) Active confirmed Problem Gastroesophageal reflux disease (459441075) GERD (gastroesophageal reflux disease) (K21.9) Active confirmed Problem 01197589864825675 Abnormal gallbladder ultrasound (R93.2) Active confirmed Problem 131048661 Left lower quadrant abdominal pain (R10.32) Active confirmed Encounters Encounter Location Date Provider Diagnosis [facility] [address] [place] [address] 01/12/2025 Frank Avila Plan Of Treatment Future Test Test Name Order Date UPPER GI ENDOSCOPY 04/26/2020 Insurance Providers Payer Name Payer Address Payer Phone Subscriber Number Group Number Insured Name Patient Relationship to Insured Coverage Start Date Coverage End Date MED[place]ARE OF [place] [address] [place] [address] [id number] ROCIO HENSON Self - patient is the insured [facility] SUPPLEMENTAL PLAN [address] [place], [place] [id number] ROCIO HENSON Self - patient is the insured Medical (General) History Medical History History ICD Code Denies AR,DM,CVA,Lung disease,renal dise ase She reports three previous c olonoscopies with the [facility]'s--she reports a hx of colon [...] any sign of malignancy Partial thyroidectomy at [facility] in [facility] 2021 for benign lesion
[2025-04-19 09:35] VITALS: BMI 27.8
[2025-04-19 09:43] VITALS: BP 161/57; PULSE 93; RESP 16; TEMP 36.8; O2SAT 96
--- NOTE | 2025-04-19 10:07 | MHC.SHP ---
Pre-Procedural Eval Section A - 24 Hr Update-Section A only Date of Service: 04/19/25 The patient is an INPATIENT: No Changes since office visit: No Cold of Flu in the past 2 weeks, No New Medical Problems, No Changes in Medication and No Patient answered all questions The patient has been examined within 24 hours of the surgical procedure. The History & Physical has been completed within 30 days and I have reviewed it.: Yes Section B - Complete if H&P > 30 days Chief Complaint: Trigger finger, right middle finger Allergies: Allergies Allergy/AdvReac Type Severity Reaction Status Date / Time aspirin (ASA) Allergy Intermediate TACHYCARDIA Verified 03/17/25 13:48 buspirone (From BuSpar) Allergy Unknown Stomach Verified 03/17/25 13:48 Upset Sulfa (Sulfonamide AdvReac Intermediate VOMITING Verified 03/17/25 13:48 Antibiotics) (SULFA(SULFONAMIDE ANTIBIOTICS)) chlorthalidone AdvReac Unknown Stomach Verified 03/17/25 13:48 pain, loss of appetite Plan Diagnosis/Plan: Unchanged I have reviewed the history and physical and performed a pertinent physical examination on my patient. No changes have occurred unless specified. Time Spent With Patient Time: Total time managing care of this patient today ____ minutes.
--- NOTE | 2025-04-19 10:08 | P.OP_ITS ---
Operative Note Operative Note Date of Service: 04/19/25 Narrative: Operative Note Preop diagnosis: 1. Right long finger Trigger finger Postop diagnosis: Same Procedure: 1. Right long finger A1 héctor release Surgeon: Ramila Kraus MD Ballistics Expert Forensic: None Anesthesia: local block using 1% lidocaine with epinephrine Findings: No locking or catching after A1 héctor release EBL: Less than 5 mL Tourniquet time: None Specimens: None Complications: None Disposition: Brought to recovery room in stable condition Plan: Follow-up for 10-14 days for wound check and suture removal Indications: The patient is 84 years old, with a right long finger trigger finger that has been unresponsive to nonoperative management. The risks and benefits of operative treatment including but not limited to risk of damage to blood vessels, nerves, tendons, infection, persistent pain, persistent symptoms, recurrence or possible need for additional surgery were discussed with the patient and the patient wishes to proceed with surgery. Procedure: Once consent was obtained a local block was performed in the preop area using a combination of 1% lidocaine with epinephrine. The patient was then brought back to the operating suite and placed on the operative table in supine position. The right upper extremity was prepped and draped in a standard surgical fashion. Once assured that we had a good block, a 1.5 cm oblique incision was made centered over the A1 héctor of the [ ] . The incision was made through the skin to the subcutaneous tissues using a #15 blade. Careful dissection was made down to the level of the A1 héctor using tenotomy scissors, with care being taken to protect the nearby neurovascular structures. A longitudinal incision was made in the A1 héctor 1st using a #15 blade, then using tenotomy scissors under direct visualization. The A1 héctor was noted to be thickened. Following our A1 héctor release, we no longer saw any locking or catching of the digit with flexion and extension. Once satisfied with our A1 héctor release the wound was copiously irrigated with normal saline and hemostasis was obtained with a brief period of local pressure. The skin edges were reapproximated with some 5.0 nylon suture material and a sterile dressing was applied. The patient appears to have tolerated the procedure well and with no complications. All digits were well vascularized at the conclusion of the case.
[2025-04-19 11:53] VITALS: BP 125/83; PULSE 61; RESP 16; O2SAT 96
== END 2025-04-19 11:54 | disposition home or self-care (01) ==
PROVIDERS: PCP Nurse Practitioner Family; Visit Provider Orthopaedic Surgery
PROC: (CPT 26055; principal; 2025-04-19 11:30)
DX: M65.331 Trigger finger, right middle finger (principal); R82.994 Hypercalciuria; E55.9 Vitamin D deficiency, unspecified; Z85.840 Personal history of malignant neoplasm of eye; Z92.3 Personal history of irradiation; M81.0 Age-related osteoporosis without current pathological fracture; Z88.6 Allergy status to analgesic agent; Z88.2 Allergy status to sulfonamides; Z88.8 Allergy status to other drugs, medicaments and biological substances; Z98.890 Other specified postprocedural states
CPT/HCPCS: 26055; J0165; J2003

== ENCOUNTER → 2025-04-19 09:15 | Outpatient (BNV) | payer MEDICARE, SELFPAY | PROVIDERS: PCP Nurse Practitioner Family; Visit Provider Orthopaedic Surgery | DX: M65.331 Trigger finger, right middle finger (principal) | CPT/HCPCS: 26055 ==

== ENCOUNTER 2025-05-03 14:10 | Outpatient (AMB) | payer MEDICARE, SELFPAY ==
--- NOTE | 2025-05-03 14:11 | MHC.OFFVIS ---
Vital Signs 05/03/25 14:18 Height 4 ft 10 in Weight 133 lb BMI 27.8 Intake Visit Reasons: PO-Rt MF Trigger Release 04/19/25 Intake Note: Irene is a 84 year old right hand dominant female who presents today for their first post-operative visit status post right middle finger trigger release, DOS:04/19/[address] Kraus. Patient reports she is doing well. Denies numbness, tingling, finger locking. Sutures removed and steri strips applied. Allergies aspirin (ASA) Allergy (Intermediate, Verified 05/03/25 14:18) TACHYCARDIA buspirone (From BuSpar) Allergy (Unknown, Verified 05/03/25 14:18) Stomach Upset Sulfa (Sulfonamide Antibiotics) (SULFA(SULFONAMIDE ANTIBIOTICS)) Adverse Reaction (Intermediate, Verified 05/03/25 14:18) VOMITING chlorthalidone Adverse Reaction (Unknown, Verified 05/03/25 14:18) Stomach pain, loss of appetite HPI HPI PO-Rt MF Trigger Release 04/19/25: Details: Irene is a 84 year old right hand dominant female who presents today for their first post-operative visit status post right middle finger trigger release, DOS:04/19/[address] Kraus. Patient reports she is doing well. Denies numbness, tingling, finger locking. Sutures removed and steri strips applied. [facility] Medical History Idiopathic hypercalciuria Vitamin D deficiency Ingrown toenail of right foot Hip fracture, right Multinodular goiter Osteoporosis Melanoma, choroid Surgical History History of lobectomy of thyroid Hx of cholecystectomy H/O colonoscopy Family History Father No problems noted. Mother No problems noted. Social History Housing: House Alcohol intake: never Patient Tobacco Use Status: Never used Tobacco e-Cigarette/Vaping Use: Never Used Second Hand Smoke Exposure: No Current occupational status: retired Cognitive needs: No Hearing needs: No Vision needs: Yes Review of Systems Const All systems reviewed & are unremarkable except as noted in HPI and below Physical Exam Vital Signs: BMI result Body Mass Index 27.8 Extrem Other: Patient is alert, oriented, and in no acute distress. Neuro: Normal sensation of the tips of all digits of the right hand at this time Vascular: Cap refill brisk Pain: No tenderness to palpation of the A1 héctor of the right middle finger or the incision site No further Pain with range of motion of the right middle finger ROM: There is no further Visible and palpable locking and catching of the right middle finger Patient was able to make a closed fist and extend all digits of the right hand fully Skin: No lacerations or abrasions. General: No ecchymosis, erythema, or evidence of infection. Psych: Appears grossly normal Affect normal Attitude cooperative Assessment & Plan Assessment & Plan (1) Trigger finger, right middle finger: Code(s): M65.331 - Trigger finger, right middle finger Category: Medical Plan 1. Status post right middle finger trigger release DOS 04/19/2025 Patient appears to be recovering well postoperatively Patient is educated about the typical recovery course Sutures removed, Steri-Strips applied without issue today Patient will require no further acute follow-up with us, as she is recovering very well Patient is amenable to this plan Follow-up as needed Coding Level of Care Code Global (92992) Diagnoses Trigger finger, right middle finger M65.331
[2025-05-03 14:18] VITALS: BMI 27.8
--- OUTSIDE RECORDS SUMMARY | 2025-05-03 14:41 | XMS_ITS | Encounter Summary ---
Author Organization [facility] Address [address] [place] [address] [place] [address] Phone Care Team Providers Care Drugless Physician Name Role Phone Unknown, Unknown Primary Care Provider Calos Whitt MD Primary Care Provider [phone] Niels Sams MD Primary Care Provider [phone] Anjelica Clarke MD Unavailable [phone] Unknown, Unknown Primary Care Provider Anjelica Fajardo MD Primary Care Provider [phone] Reason for Referral * MRI/CAT Scan - Closed Specialty Diagnoses / Procedures Referred By Chris mcknight Referred To Contact Radiology Diagnoses Abdominal pain, left lower quadrant Procedures CT Abdomen/Pelvis Madina Bernal PA Phone: tel: fax: Referral ID Status Reason Start Date Expiration Date Visits Re quested Visits Authorized [id number] Closed 08/27/2017 08/27/2018 1 1 Encounter Details Date Type Department Care Team (Late st Contact Info) Description 08/27/2017 Ancillary Orders [facility] External Provider Virtual Department [address] [place] [address] Madina Bernal PA [address] [place] [address] Abdominal pain, left lower quadrant Social History Tobacco Use Types Packs/Day Years Used Date Smoking Tobacco: Never Smokeless Tobacco: Never Alcohol Use Standard Drinks/Week Comments No 0 (1 standard drink = 0.6 oz pur e alcohol) Comments Unknown Sex and Gender Information Value Date Recorded Sex Assigned at Female 12/05/2022 1:07 PM EDT Legal Sex Female 8:32 AM EDT Gender Identity Female 12/05/2022 1:07 PM EDT Sexual Orientation Straight 12/31/2024 7: 47 PM EDT documented as of this encounter Plan of Treatment Upcoming Encounters Date Type Department Care Team (Late st Contact Info) Description 01/13/2026 10:30 AM EDT Office Visit [facility] [address] [place] [address] Gege Cedeno MD [address] [place] [address] [email or web address] documented as of this encounter Results * CT ABDOMEN/PELVIS WITH CONTRAST (09/04/2017 11:10 AM EST) Anatomical Region Laterality Modality Abdomen, Pelvis Computed Tomogra phy 09/04/2017 11:1 0 AM EST Impressions 09/04/2017 11:19 AM EST No evidence of active diverticulitis or other acute intra-abdominal or retroperitoneal pathology. TOTAL CTDIvol: 6.10 mGy POS [id number] Narrative 09/04/2017 11:19 AM EST COMPARISON: 12/14/2008 CT and 04/08/2015 MR TECHNIQUE: Helical scanning was performed from the dome the liver through the iliac crests following oral and intravenous contrast administration. Sagittal and coronal reformats were generated and reviewed. Automated exposure control was utilized. FINDINGS: No hepatic mass, bile duct dilatation, dominant cyst, or perihepatic ascites have arisen in the interim. A small chronic cyst in the medial left lobe is unchanged. No choledocholithiasis demonstrated. Portal vein is grossly patent. Gallbladder is grossly stable in appearance. The spleen and adrenal glands are stable in appearance. No pancreatic mass, duct dilatation, or peripancreatic inflammatory changes are noted to have arisen in the interim. 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 There are chronic cysts in the interpolar and lower pole cortex of the left kidney. No dominant right-sided cyst is confirmed although there are a few tiny hypodensities in the lower pole suspected to represent cysts. No renal mass, hydronephrosis, or nephrolithiasis apparent. There is no evidence of small bowel obstruction or acute appendicitis. Moderate amount of stool is present throughout the colon. There are scattered sigmoid diverticula. No significant paracolic inflammatory infiltration is demonstrated. No free fluid collections are noted in the dependent portion of the pelvis. The patient is apparently status-post hysterectomy. No aortoiliac aneurysm or pathologically enlarged mesenteric, para-aortic, iliac chain, or inguinal lymph nodes are apparent. No bowel-containing abdominal wall hernia. Chronic bibasilar pulmonary parenchymal scarring is demonstrated without acute airspace infiltrate or pleural effusion seen. No acute traumatic or destructive skeletal lesions are demonstrated. Fixation pins are again noted in the proximal right femur. Procedure Note Willis So MD - 09/04/2017 COMPARISON: 12/14/2008 CT and 04/08/2015 MR TECHNIQUE: Helical scanning was performed from the dome the liver throughthe iliac crests following oral and intravenous contrast administration.Sagittal and coronal reformats were generated and reviewed. Automatedexposure control was utilized. FINDINGS: No hepatic mass, bile duct dilatation, dominant cyst, or perihepaticascites have arisen in the interim. A small chronic cyst in the medialleft lobe is unchanged. No choledocholithiasis demonstrated. Portal veinis grossly patent. Gallbladder is grossly stable in appearance. The spleen and adrenal glands are stable in appearance. No pancreaticmass, duct dilatation, or peripancreatic inflammatory changes are noted tohave arisen in the interim. A small chronic fat density focus in thepancreatic tail consistent with lipoma is unchanged. There are chronic cysts in the interpolar and lower pole cortex of theleft kidney. No dominant right-sided cyst is confirmed although there area few tiny hypodensities in the lower pole suspected to represent cysts.No renal mass, hydronephrosis, or nephrolithiasis apparent. There is no evidence of small bowel obstruction or acute appendicitis.Moderate amount of stool is present throughout the colon. There arescattered sigmoid diverticula. No significant paracolic inflammatoryinfiltration is demonstrated. No free fluid collections are noted in thedependent portion of the pelvis. The patient is apparently status-posthysterectomy. No aortoiliac aneurysm or pathologically enlarged mesenteric, para-aortic,iliac chain, or inguinal lymph nodes are apparent. No bowel-containingabdominal wall hernia. Chronic bibasilar pulmonary parenchymal scarring is demonstrated withoutacute airspace infiltrate or pleural effusion seen. No acute traumatic or destructive skeletal lesions are demonstrated.Fixation pins are again noted in the proximal right femur. IMPRESSION: No evidence of active diverticulitis or other acute intra-abdominal orretroperitoneal pathology. TOTAL CTDIvol: 6.10 mGy POS [id number] us Madina NUR IMG CT ABD/PELVIS Final Res ult documented in this encounter Visit Diagnoses Diagnosis Abdominal pain, left lower quadrant Abdominal pain, left lower quadrant documented in this encounter Care Teams Drugless Physician Relationship Specialty Start Date End Date Unknown, Unknown, PCP - General 05/30/17 09/03/17 Calos Valiente MD [address] [place] [address] [email or web address] PCP - General Family Medicine 09/04/17 12/15/17 Niels Sams MD [address] [place] [address] [email or web address] PCP - General Family Medicine 12/16/17 01/07/19 Unknown, Unknown, PCP - General 01/08/19 05/30/20 Anjelica Clarke MD [address] [place] [address] [place] [address] PCP - General Internal Medicine 05/31/20 Anjelica Clarke MD [facility] [place] [address] Internal Medicine 01/08/19 documented as of this encounter Additional Source Comments The information contained in this document represents components of the legal health record. It is not the complete legal health record.[facility]
--- OUTSIDE RECORDS SUMMARY | 2025-05-03 14:42 | XMS_ITS | Patient Health Record ---
Author Organization [facility] Address [address] [place] [address] Care Team Providers Care Precipitator Name Role Phone Anjelcia Clarke MD Primary Care Provider Frank Mccoy Unavailable [phone] Allergies Allergen (clinical drug ingredient) Drug/Non Drug [...] Status Risk Notes Problem Irritable bowel syndrome (72486734) Irritable bowel syndrome (K58.9) Active confirmed Problem 087511522 Gastroesophageal reflux disease, esophagitis presence not specified (K21.9) Active confirmed Problem Hiatal hernia (27034764) Hiatal hernia (K44.9) Active confirmed Problem 86945553 Constipation, unspecified constipation type (K59.00) Active confirmed Problem Gastroesophageal reflux disease (116207642) GERD (gastroesophageal reflux disease) (K21.9) Active confirmed Problem 74499484936123209 Abnormal gallbladder ultrasound (R93.2) Active confirmed Problem 458553185 Left lower quadrant abdominal pain (R10.32) Active confirmed Encounters Encounter Location Date Provider Diagnosis [facility] [address] [place] [address] 01/12/2025 Frank Avila Plan Of Treatment Future Test Test Name Order Date UPPER GI ENDOSCOPY 04/26/2020 Insurance Providers Payer Name Payer Address Payer Phone Subscriber Number Group Number Insured Name Patient Relationship to Insured Coverage Start Date Coverage End Date MEDICARE OF [place] [address] [facility] [address] [id number] ROCIO HENSON Self - patient is the insured [facility] SUPPLEMENTAL PLAN [address] [place], [place] [address] [phone] [id number] ROCIO HENSON Self - patient is the insured Medical (General) History Medical History History ICD Code Denies NC,DM,CVA,Lung disease,renal dise ase She reports three previous c olonoscopies with the [facility]--she reports a hx of colon [...] any sign of malignancy Partial thyroidectomy at [facility] in [facility] 2021 for benign lesion
== END 2025-05-03 14:34 | disposition home or self-care (01) ==
LOC: HO.HOS 14:11
PROVIDERS: PCP Internal Medicine
DX: M65.331 Trigger finger, right middle finger (principal)
CPT/HCPCS: 99024

== ENCOUNTER → 2025-05-03 14:10 | Outpatient (BNVA) | payer MEDICARE, SELFPAY | PROVIDERS: PCP Internal Medicine | DX: M65.331 Trigger finger, right middle finger (principal); Z98.890 Other specified postprocedural states | CPT/HCPCS: 99212 ==

== ENCOUNTER 2025-06-22 14:57 | Outpatient (REF) | payer MEDICARE, SELFPAY ==
--- OUTSIDE RECORDS SUMMARY | 2025-06-22 16:20 | XMS_ITS | Patient Health Record ---
Author Organization [facility] Address [address] [place] [address] Care Team Providers Care Fire Extinguisher Charger Name Role Phone Anjelica Clarke MD Primary Care Provider Frank Mccoy Unavailable [phone] Allergies Allergen (clinical drug ingredient) Drug/Non Drug [...] Status Risk Notes Problem Irritable bowel syndrome (11554857) Irritable bowel syndrome (K58.9) Active confirmed Problem 410840881 Gastroesophageal reflux disease, esophagitis presence not specified (K21.9) Active confirmed Problem Hiatal hernia (56884524) Hiatal hernia (K44.9) Active confirmed Problem 19342861 Constipation, unspecified constipation type (K59.00) Active confirmed Problem Gastroesophageal reflux disease (447507904) GERD (gastroesophageal reflux disease) (K21.9) Active confirmed Problem [id number] Abnormal gallbladder ultrasound (R93.2) Active confirmed Problem 847348467 Left lower quadrant abdominal pain (R10.32) Active confirmed Encounters Encounter Location Date Provider Diagnosis [facility] [address] [place] [address] 01/12/2025 Frank Avila Plan Of Treatment Future Test Test Name Order Date UPPER GI ENDOSCOPY 04/26/2020 Insurance Providers Payer Name Payer Address Payer Phone Subscriber Number Group Number Insured Name Patient Relationship to Insured Coverage Start Date Coverage End Date MEDICARE OF [place] [address] [facility] [place] [address] [phone] [id number] ROCIO HENSON Self - patient is the insured [facility] SUPPLEMENTAL PLAN [address] [place], [place] [address] [phone] [id number] ROCIO HENSON Self - patient is the insured Medical (General) History Medical History History ICD Code Denies HI,DM,CVA,Lung disease,renal dise ase She reports three previous c olonoscopies with the [facility]--she reports a hx of colon [...] any sign of malignancy Partial thyroidectomy at [facility] in [facility] 2021 for benign lesion
--- OUTSIDE RECORDS SUMMARY | 2025-06-22 16:20 | XMS_ITS | Encounter Summary ---
Author Organization [facility] Address [facility] [employer] [facility] [address] [place] [address] Phone Care Team Providers Care Open End Spinning Operator Name Role Phone Unknown, Unknown Primary Care Provider Calos Whitt MD Primary Care Provider [phone] Niels Sams MD Primary Care Provider [phone] Anjelica Clarke MD Unavailable [phone] Unknown, Unknown Primary Care Provider Anjelica Fajardo MD Primary Care Provider [phone] Roberto Carlos Hancock NP Primary Care Provider + Encounter Details Date Type Department Care Team (Late st Contact Info) Description 08/27/2017 Procedure Pass [facility], Ct Scan - [address] [address] Social History Tobacco Use Types Packs/Day Years [...] Care Team (Late st Contact Info) Description 05/12/2025 Procedure Pass [facility], [address] [address] 12/27/2025 1:00 PM EDT Appointment [facility], [address] [address] Roberto Carlos Hancock, SIMON [address] [facility] [place] [address] 01/13/2026 10:30 AM EDT [facility] [address] [facility] 12th [place] [address] Gege Cedeno MD [address] [place] [address] [email or web address] documented as of this encounter Visit Diagnoses Not on filedocumented in this encounter Care Teams Open End Spinning Operator Relationship Specialty Start Date End Date Unknown, Unknown, PCP - General 05/30/17 09/03/17 Calos Valiente MD [address] [place] [address] [email or web address] PCP - General Family Medicine 09/04/17 12/15/17 Niels Sams MD [address] [place] [address] [email or web address] PCP - General Family Medicine 12/16/17 01/07/19 Unknown, Unknown, PCP - General 01/08/19 05/30/20 Anjelica Clarke MD [address] [facility] [address] PCP - General Internal Medicine 05/31/20 05/11/25 Roberto Carlos Hancock, SIMON [address] [facility] [address] PCP - General Nurse Practitioner 05/12/25 Anjelica Clarke MD [facility] [address] Internal Medicine 01/08/19 documented as of this encounter Additional Source Comments The information contained in this document represents components of the legal health record. It is not the complete legal health record.[facility]
--- OUTSIDE RECORDS SUMMARY | 2025-06-22 16:20 | XMS_ITS | Encounter Summary ---
Author Organization [facility] Address [facility] [employer] [address] [address] Phone Care Team Providers Care Grocery Clerk Stocking Name Role Phone Niels Sams MD Primary Care Provider [phone] Anjelica Clarke MD Unavailable [phone] Unknown, Unknown Primary Care Provider Anjelica Fajardo MD Primary Care Provider [phone] Roberto Carlos Hancock NP Primary Care Provider + Encounter Details Date Type Department Care Team (Late st Contact Info) Description 12/16/2017 Ancillary Orders [facility] External Provider Virtual Department [address] [place] [address] Niels Sams MD [address] [place] [address] [email or web address] Breast screening Social History Tobacco Use Types Packs/Day Years [...] st Contact Info) Description 05/12/2025 Procedure Pass [address] [address] 12/27/2025 1:00 PM EDT Appointment [address] [address] Roberto Carlos Hancock, SIMON [facility] [facility] [place] [address] 01/13/2026 10:30 AM EDT Office Visit [facility] [address] [address] Gege Cedeno MD [address] [place] [address] [email or web address] documented as of this encounter Results * BI MAMMOGRAM SCREENING WITH TOMOSYNTHESIS WITH CAD (BILATERAL) (01/27/2018 11:40 AM EDT) Anatomical Region Laterality Modality Breast Left, Breast Right, Breast Bilateral Bila teral Mammography 01/27/2018 12:4 7 PM EDT Impressions 01/27/2018 12:49 PM EDT Stable appearance relative to prior imaging. No findings suggestive of malignancy are seen. BI-RADS CATEGORY: 2 - Benign finding. DENSITY: The breast tissue is heterogeneously dense, an appearance which lowers the sensitivity of mammography. POS - [id number] Narrative 01/27/2018 12:49 PM EDT Full-field digital mammography is obtained with computer-aided detection. Comparison with prior imaging from 01/23/2017 is made with older imaging dating back as far as 10/01/2011 also reviewed. There is heterogeneous fibroglandular density evident in the breasts. In addition to 2-D C view imaging, tomosynthesis images are obtained in two projections of each breast. There are scattered loosely grouped areas of calcification and nodularity present which are unchanged.. No dominant soft tissue mass of concern, suspicious cluster of calcifications, significant interval skin changes, or architectural distortion is identified. Procedure Note Hernandez Farmer MD - 01/27/2018 Full-field digital mammography is obtained with computer-aided detection.Comparison with prior imaging from 01/23/2017 is made with older imagingdating back as far as 10/01/2011 also reviewed. There is heterogeneous fibroglandular density evident in the breasts. Inaddition to 2-D C view imaging, tomosynthesis images are obtained in twoprojections of each breast. There are scattered loosely grouped areas of calcification and nodularitypresent which are unchanged.. No dominant soft tissue mass of concern,suspicious cluster of calcifications, significant interval skin changes,or architectural distortion is identified. IMPRESSION: Stable appearance relative to prior imaging. No findings suggestive ofmalignancy are seen. BI-RADS CATEGORY: 2 - Benign finding. DENSITY: The breast tissue is heterogeneously dense, an appearance whichlowers the sensitivity of mammography. POS - [id number] Niels Sams MD IMG MG EXAMS Final Result documented in this encounter Visit Diagnoses Diagnosis Breast screening Breast screening, unspecified Breast screening Breast screening, unspecified documented in this encounter Care Teams Grocery Clerk Stocking Relationship Specialty Start Date End Date Niels Sams MD PCP - General Family Medicine 12/16/17 01/07/19 Unknown, Nataly, [address] [facility] [place] [address] PCP - General 01/08/19 05/30/20 Anjelica Clarke MD [address] [facility] [place] [address] PCP - General Internal Medicine 05/31/20 05/11/25 Roberto Carlos Hancock NP [address] [facility] [place] [address] PCP - General Nurse Practitioner 05/12/25 Anjelica Clarke MD [facility] [place] [address] Internal Medicine 01/08/19 documented as of this encounter Additional Source Comments The information contained in this document represents components of the legal health record. It is not the complete legal health record.[facility]
--- OUTSIDE RECORDS SUMMARY | 2025-06-22 16:20 | XMS_ITS | Encounter Summary ---
Author Organization [facility] Address [facility] [employer] [facility] [address] [place] [address] Phone Care Team Providers Care Media Librarian Name Role Phone Anjelica Clarke MD Unavailable [phone] Anjelica Clarke MD Primary Care Provider [phone] Roberto Carlos Hancock NP Primary Care Provider + Encounter Details Date Type Department Care Team (Late st Contact Info) Description 04/04/2021 Procedure Pass [address] [address] Social History Tobacco Use Types Packs/Day Years Used Date Smoking Tobacco: Never Smokeless Tobacco: Never Alcohol Use Standard Drinks/Week Comments No 0 (1 standard drink = 0.6 oz pur e alcohol) Comments No Sex and Gender Information Value Date Recorded Sex Assigned at Female 12/05/2022 1:07 PM EDT Legal Sex Female 8:32 AM EDT Gender Identity Female 12/05/2022 1:07 PM EDT Sexual Orientation Straight 12/31/2024 7: 47 PM EDT documented as of this encounter Plan of Treatment Upcoming Encounters Date Type Department Care Team (Late st Contact Info) Description 05/12/2025 Procedure Pass [address] [address] 12/27/2025 1:00 PM EDT Appointment [address] [address] Roberto Carlos Hancock NP [address] [facility] [place] [address] 01/13/2026 10:30 AM EDT Office Visit [facility] [address] [place] [address] Gege Cedeno MD [address] [place] [address] [email or web address] documented as of this encounter Visit Diagnoses Not on filedocumented in this encounter Care Teams Media Librarian Relationship Specialty Start Date End Date Anjelica Clarke MD [address] [place] [address] [place] [address] PCP - General Internal Medicine 05/31/20 05/11/25 Roberto Carlos Hancock NP [address] [place] [address] [place] [address] PCP - General Nurse Practitioner 05/12/25 Anjelica Clarke MD [address] [place] [address] [place] [address] Internal Medicine 01/08/19 documented as of this encounter Additional Source Comments The information contained in this document represents components of the legal health record. It is not the complete legal health record.[facility]
--- OUTSIDE RECORDS SUMMARY | 2025-06-22 16:20 | XMS_ITS | Encounter Summary ---
Author Organization [facility] Address [facility] [address] [place] [address] Phone Care Team Providers Care Employment Agency Manager Name Role Phone Anjelica Clarke MD Unavailable [phone] Anjelica Clarke MD Primary Care Provider [phone] Roberto Carlos Hancock NP Primary Care Provider + Encounter Details Date Type Department Care Team (Late st Contact Info) Description 04/04/2021 Ancillary Orders [facility] Department [address] [place] [address] Anjelica Clarke MD [address] [place] [address] Kevin SONU [address] Breast screening Social History Tobacco Use Types [...] st Contact Info) Description 05/12/2025 Procedure Pass [facility], [facility] [address] [place] [address] 12/27/2025 1:00 PM EDT Appointment [facility], [facility] [address] [place] [address] Roberto Carlos Hancock, SIMON [address] [facility] S[place] [address] 01/13/2026 10:30 AM EDT Office Visit [facility] [address] [facility] 12th [place] [address] Gege Cedeno MD 243 [place] [address] [email or web address] documented as of this encounter Results * BI MAMMOGRAM SCREENING WITH TOMOSYNTHESIS WITH CAD (BILATERAL) (06/12/2021 1:55 PM EDT) Anatomical Region Laterality Modality Breast Left, Breast Right, Breast Bilateral Bila teral Mammography 06/12/2021 3:30 PM EDT Impressions 06/12/2021 3:33 PM EDT No mammographic change indicative of malignancy. Annual screening is recommended. BI-RADS CATEGORY: 2 - Benign finding. DENSITY: The breast tissue is heterogeneously dense, which could obscure a lesion on mammography. Narrative 06/12/2021 3:33 PM EDT Bilateral full-field digital screening mammography is obtained and read in conjunction with computer-aided detection. Tomosynthesis as well as 2-D C view imaging of both breasts in two planes also obtained. Comparison made to multiple prior, most recent June 29, 2020, and most remote November 29, 2014. No dominant mass, architectural distortion, worrisome asymmetry, or suspicious calcification is identified. No skin or nipple finding of concern is appreciated. Previously sonographically documented cyst in the right breast appears to have a small amount of calcification layering within. It has increased in size since prior study, now measuring slightly over centimeter maximally. Small nodular areas elsewhere also noted but none appear dominant or more suspicious than another. Scattered calcifications are stable. Procedure Note Dustin Flynn MD - 06/12/2021 Bilateral full-field digital screening mammography is obtained and read inconjunction with computer-aided detection. Tomosynthesis as well as 2-D Cview imaging of both breasts in two planes also obtained. Comparison madeto multiple prior, most recent June 29, 2020, and most remote November. No dominant mass, architectural distortion, worrisome asymmetry, orsuspicious calcification is identified. No skin or nipple finding ofconcern is appreciated. Previously sonographically documented cyst in theright breast appears to have a small amount of calcification layeringwithin. It has increased in size since prior study, now measuring slightlyover centimeter maximally. Small nodular areas elsewhere also noted butnone appear dominant or more suspicious than another. Scatteredcalcifications are stable. IMPRESSION: No mammographic change indicative of malignancy. Annual screening isrecommended. BI-RADS CATEGORY: 2 - Benign finding. DENSITY: The breast tissue is heterogeneously dense, which could obscurea lesion on mammography. Anjelica Clarke MD IMG MG EXAMS Final Result documented in this encounter Visit Diagnoses Diagnosis Breast screening Breast screening, unspecified Breast screening Breast screening, unspecified documented in this encounter Care Teams Employment Agency Manager Relationship Specialty Start Date End Date Anjelica Clarke MD [address] [facility] [place] [address] PCP - General Internal Medicine 05/31/20 05/11/25 Roberto Carlos Hancock NP [address] [facility] [place] [address] PCP - General Nurse Practitioner 05/12/25 Anjelica Clarke MD [address] [facility] [place] [address] Internal Medicine 01/08/19 documented as of this encounter Additional Source Comments The information contained in this document represents components of the legal health record. It is not the complete legal health record.[facility]
--- OUTSIDE RECORDS SUMMARY | 2025-06-22 16:20 | XMS_ITS | Encounter Summary ---
Author Organization [facility] Address [facility] [address] [place] [address] Phone Care Team Providers Care Msw Name Role Phone Calos Valiente MD Primary Care Provider [phone] Niels Sams MD Primary Care Provider [phone] Anjelica Clarke MD Unavailable [phone] Unknown, Unknown Primary Care Provider Anjelica Fajardo MD Primary Care Provider [phone] Roberto Carlos Hancock NP Primary Care Provider + Encounter Details Date Type Department Care Team (Late st Contact Info) Description 09/24/2017 Procedure [facility] Scan - [address] [address] Social History Tobacco Use Types Packs/Day Years [...] st Contact Info) Description 05/12/2025 Procedure Pass [address] [address] 12/27/2025 1:00 PM EDT Appointment [address] [address] Roberto Carlos Hancock, SIMON [address] [facility] [place] [address] 01/13/2026 10:30 AM EDT Office Visit [facility] 243 [facility] 12th [place] [address] Gege Cedeno MD [address] [place] [address] [email or web address] documented as of this encounter Visit Diagnoses Not on filedocumented in this encounter Care Teams Msw Relationship Specialty Start Date End Date Calos Valiente MD [address] [place] [address] [email or web address] PCP - General Family Medicine 09/04/17 12/15/17 Niels Sams MD [address] [place] [address] [email or web address] PCP - General Family Medicine 12/16/17 01/07/19 Nataly, MD Nataly [address] [facility] [place] [address] PCP - General 01/08/19 05/30/20 Anjelica Clarke MD [address] [facility] [place] [address] PCP - General Internal Medicine 05/31/20 05/11/25 Roberto Carlos Hancock, SIMON [address] [facility] [place] [address] PCP - General Nurse Practitioner 05/12/25 Anjelica Clarke MD [facility] [place] [address] Internal Medicine 01/08/19 documented as of this encounter Additional Source Comments The information contained in this document represents components of the legal health record. It is not the complete legal health record.[facility]
--- OUTSIDE RECORDS SUMMARY | 2025-06-22 16:20 | XMS_ITS | Encounter Summary ---
Author Organization [facility] Address [facility] [facility] [address] [place] [address] Phone Care Team Providers Care Tea Room Manager Name Role Phone Calos Valiente MD Primary Care Provider [phone] Niels Sams MD Primary Care Provider [phone] Anjelica Clarke MD Unavailable [phone] Unknown, Unknown Primary Care Provider Anjelica Fajardo MD Primary Care Provider [phone] Roberto Carlos Hancock NP Primary Care Provider + Encounter Details Date Type Department Care Team (Late st Contact Info) Description 09/08/2017 Prep for Surgery [address] [address] Agnieszka Shen MD [address] [place] [address] [email or web address] 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) Social History Tobacco Use Types Packs/Day Years [...] st Contact Info) Description 05/12/2025 Procedure Pass [address] [address] 12/27/2025 1:00 PM EDT Appointment [address] [address] Roberto Carlos Hancock NP [address] [facility] [place] [address] 01/13/2026 10:30 AM EDT Office Visit [address] [address] Gege Cedeno MD [address] [place] [address] [email or web address] documented as of this encounter Visit Diagnoses Diagnosis 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 documented in this encounter Care Teams Tea Room Manager Relationship Specialty Start Date End Date Calos Valiente MD [address] [place] [address] [email or web address] PCP - General Family Medicine 09/04/17 12/15/17 Niels Sams MD [address] [place] [address] [email or web address] PCP - General Family Medicine 12/16/17 01/07/19 Unknown, MD Nataly [address] [facility] [address] [place] PCP - General 01/08/19 05/30/20 Anjelica Clarke MD [address] [facility] [address] [place] PCP - General Internal Medicine 05/31/20 05/11/25 Roberto Carlos Hancock NP [address] [facility] [place] [address] PCP - General Nurse Practitioner 05/12/25 Anjelica Clarke MD [address] [facility] [place] [address] Internal Medicine 01/08/19 documented as of this encounter Additional Source Comments The information contained in this document represents components of the legal health record. It is not the complete legal health record.[facility]
--- OUTSIDE RECORDS SUMMARY | 2025-06-22 16:20 | XMS_ITS | Encounter Summary ---
Author Organization [facility] Address [facility] [employer] [facility] [address] [place] [address] Phone Care Team Providers Care Logger All Round Name Role Phone Niels Sams MD Primary Care Provider [phone] Anjelica Clarke MD Unavailable [phone] Unknown, Unknown Primary Care Provider Anjelica Fajardo MD Primary Care Provider [phone] Roberto Carlos Hancock NP Primary Care Provider + Encounter Details Date Type Department Care Team (Latest Contact Info) Description 12/18/2017 Transcribe Orders [facility] [address] 2nd [place] [address] Tru Roberts MD 10 [facility] 2 [place] [address] Abdominal pain, left lower quadrant (Primary Dx); Abdominal distention; Protein-losing enteropathy Social History Tobacco Use Types Packs/Day Years [...] st Contact Info) Description 05/12/2025 Procedure Pass [address] [address] 12/27/2025 1:00 PM EDT Appointment [address] [address] Roberto Carlos Hnacock, SIMON [facility] [place] [address] 01/13/2026 10:30 AM EDT Office Visit [address] [place] [address] Geeg Cedeno MD [address] [place] [address] [email or web address] documented as of this encounter Results * Immunoglobulin A (12/18/2017 11:36 AM EDT) IgA 376 70 - 400 mg/dL [facility] Blood 12/18/2017 11:3 6 AM EDT 12/18/2017 11:42 AM EDT us Tru Roberts MD LAB BLOOD ORDERABLES Final R esult [address] [address] * LFTs (hepatic panel) (12/18/2017 11:36 AM EDT) ALKALINE PHOSPHATASE 60 39 - 117 U/L [facility] TOTAL BILIRUBIN 0.4 0.0 - 1.2 mg/dL [facility] DIRECT BILIRUBIN <0.2 0 - 0.3 mg/dL [facility] Bilirubin (Indirect) NOT CALCULATED 0 - 1.5 mg/dL [facility] AST 17 0 - 37 U/L [facility] ALT 11 0 - 40 U/L [facility] TOTAL PROTEIN 6.9 6.5 - 8.0 g/dL [facility] ALBUMIN 4.1 3.9 - 4.8 g/dL [facility] GLOBULIN 2.8 1 - 4.8 g/dL [facility] A/G Ratio 1.46 1.00 - 4.80 RATIO [facility] Blood 12/18/2017 11:3 6 AM EDT 12/18/2017 11:42 AM EDT Tru Roberts MD LAB BLOOD ORDERABLES Final R esult [address] [address] * C-Reactive Protein (12/18/2017 11:36 AM EDT) C REACTIVE PROTEIN 0.1 0 - 0.5 mg/L [facility] Blood 12/18/2017 11:3 6 AM EDT 12/18/2017 11:42 AM EDT Tru Roberts MD LAB BLOOD ORDERABLES Final R esult Performing Organization Address City/[facility]/ZIP Co de Phone Number [address] [address] * Tissue transglutaminase IgA (12/18/2017 11:36 AM EDT) TTG IGA ANTIBODY <1.2 <4.0 (Negative) U/mL [facility] DPT OF LAB MED AND PAT+ Blood 12/18/2017 11:3 6 AM EDT 12/18/2017 11:41 AM EDT us Tru Roberts MD LAB BLOOD ORDERABLES Final R esult [facility] DPT OF LAB MED AND PAT+ [address] [place] [address] * CBC and differential (12/18/2017 11:36 AM EDT) WBC 5.80 3.40 - 11.20 K/uL [facility] RBC 4.48 3.80 - 4.80 M/uL [facility] HGB 13.2 12.0 - 15.0 g/dL [facility] HCT 40.5 36.0 - 46.0 % [facility] PLT 249 130 - 400 K/uL [facility] MCV 90.4 79.0 - 98.0 fL [facility] MCH 29.5 27.0 - 34.8 pg [facility] MCHC 32.6 31.5 - 36.0 g/dL [facility] RDW 13.2 10.8 - 14.6 % [facility] MPV 10.4 9.4 - 12.4 fl [facility] NRBC 0.00 /100 WBCs [facility] ABSOLUTE NRBC 0.00 K/uL [facility] DIFF METHOD Auto [facility] NEUTS 54.6 45.30 - 77.70 % [facility] LYMPHS 35.9 12.30 - 39.70 % [facility] MONOS 6.9 4.10 - 12.80 % [facility] EOS 2.1 0 - 7.2 % [facility] BASOS 0.3 0 - 2.80 % [facility] Granulocytes, immature (%) 0.2 0.0 - 0.9 % [facility] ABSOLUTE NEUTS 3.17 1.40 - 7.70 K/uL [facility] ABSOLUTE LYMPHS 2.08 0.60 - 3.20 K/uL [facility] ABSOLUTE MONOS 0.40 0.11 - 0.59 K/uL [facility] ABSOLUTE EOS 0.12 0.01 - 0.50 K/uL [facility] ABSOLUTE BASOS 0.02 0.00 - 0.08 K/uL [facility] Granulocytes, immature 0.01 0.00 - 0.05 K/uL [facility] Blood 12/18/2017 11:3 6 AM EDT 12/18/2017 11:42 AM EDT us Tru Roberts MD LAB BLOOD ORDERABLES Final R esult [address] [address] documented in this encounter Visit Diagnoses Diagnosis Abdominal pain, left lower quadrant- Primary Abdominal distention Flatulence, eructation, and gas pain 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 documented in this encounter Care Teams Logger All Round Relationship Specialty Start Date End Date Niels Sams MD [email or web address] PCP - General Family Medicine 12/16/17 01/07/19 Unknown, Nataly, [address] [facility] [place] [address] PCP - General 01/08/19 05/30/20 Anjelica Clarke MD [address] [facility] [address] PCP - General Internal Medicine 05/31/20 05/11/25 Roberto Carlos Hancock NP [address] [facility] [address] PCP - General Nurse Practitioner 05/12/25 Anjelica Clarke MD [address] [facility] [place] [address] Internal Medicine 01/08/19 documented as of this encounter Additional Source Comments The information contained in this document represents components of the legal health record. It is not the complete legal health record.[facility]
--- OUTSIDE RECORDS SUMMARY | 2025-06-22 16:20 | XMS_ITS | Encounter Summary ---
Author Organization [facility] Address [address] [employer] [facility] [address] [place] [address] Phone Care Team Providers Care Crm Consultant Name Role Phone Anjelica Clarke MD Unavailable [phone] Anjelica Clarke MD Primary Care Provider [phone] Roberto Carlos Hancock NP Primary Care Provider + Encounter Details Date Type Department Care Team (Late st Contact Info) Description 04/03/2024 Telephone [facility] [address] [place] [address] Gege Cedeno MD [address] [place] [address] [email or web address] Social History Tobacco Use Types Packs/Day Years Used Date Smoking Tobacco: Never Smokeless Tobacco: Never Alcohol Use Standard Drinks/Week Comments No 0 (1 standard drink = 0.6 oz pur e alcohol) Education Answer Date Recorded Are you interested in more education? Not on ami e 01/18/2023 Are you concerned about learning? Not on file 01/18/2023 No 01/18/2023 No 01/18/2023 Digital Access Answer Date Recorded No 02/16/2023 No 02/16/2023 Reliable internet access at home? Not on file 02/16/2023 Device with a working camera? Not on file Comments No Sex and Gender Information Value Date Recorded Sex Assigned at Female 12/05/2022 1:07 PM EDT Legal Sex Female 8:32 AM EDT Gender Identity Female 12/05/2022 1:07 PM EDT Sexual Orientation Straight 12/31/2024 7: 47 PM EDT documented as of this encounter Plan of Treatment Upcoming Encounters Date Type Department Care Team (Late st Contact Info) Description 05/12/2025 Procedure Pass [address] [address] 12/27/2025 1:00 PM EDT Appointment [address] [address] Roberto Carlos Hancock NP [address] [place] [address] 01/13/2026 10:30 AM EDT Office Visit [facility] [address] [place] [address] Gege Cedeno MD [address] [place] [address] [email or web address] documented as of this encounter Visit Diagnoses Not on filedocumented in this encounter Care Teams Crm Consultant Relationship Specialty Start Date End Date Anjelica Clarke MD [address] [place] [address] PCP - General Internal Medicine 05/31/20 05/11/25 Roberto Carlos Hancock NP [address] [place] [address] PCP - General Nurse Practitioner 05/12/25 Anjelica Clarke MD [address] [place] [address] Internal Medicine 01/08/19 documented as of this encounter Additional Source Comments The information contained in this document represents components of the legal health record. It is not the complete legal health record.[facility]
--- OUTSIDE RECORDS SUMMARY | 2025-06-22 16:20 | XMS_ITS | Encounter Summary ---
Author Organization [facility] Address [address] [place] [address] [place] [address] Phone Care Team Providers Care Kids Activities Coach Name Role Phone Unknown, Unknown Primary Care Provider Calos Whitt MD Primary Care Provider [phone] Niels Sams MD Primary Care Provider [phone] Anjelica Clarke MD Unavailable Unknown, Unknown Primary Care Provider Anjelica Fajardo MD Primary Care Provider [phone] Roberto Carlos Hancock NP Primary Care Provider + Reason for Referral * MRI/CAT Scan - Closed Specialty Diagnoses / Procedures Referred By Contac t Referred To Contact Radiology Diagnoses Abdominal pain, left lower quadrant Procedures CT Abdomen/Pelvis Madina Bernal PA Phone: tel: fax: Referral ID Status Reason Start Date Expiration Date Visits Re quested Visits Authorized [id number] Closed 08/27/2017 08/27/2018 1 1 Encounter Details Date Type Department Care Team (Late st Contact Info) Description 08/27/2017 Ancillary Orders [facility] External Provider Virtual Department [address] [place] [address] Madina Bernal PA [address] [place] [address] Abdominal pain, left lower quadrant Social History [...] st Contact Info) Description 05/12/2025 Procedure Pass [address] [address] 12/27/2025 1:00 PM EDT Appointment [address] [address] Roberto Carlos Hancock, SIMON [address] [place] [address] [place] [address] 01/13/2026 10:30 AM EDT Office Visit [address] [address] Gege Cedeno MD [address] [place] [address] [email or web address] documented as of this encounter Results [...] quadrant documented in this encounter Care Teams Kids Activities Coach Relationship Specialty Start Date End Date Unknown, Unknown, MD PCP - General 05/30/17 09/03/17 Calos Valiente MD [address] [place] [address] [email or web address] PCP - General Family Medicine 09/04/17 12/15/17 Niels Sams MD [address] [place] [address] [email or web address] PCP - General Family Medicine 12/16/17 01/07/19 Unknown, Unknown, MD PCP - General 01/08/19 05/30/20 Anjelica Clarke MD [address] [place] [address] [place] [address] PCP - General Internal Medicine 05/31/20 05/11/25 Roberto Carlos Hancock NP [address] [place] [address] [place] [address] PCP - General Nurse Practitioner 05/12/25 Anjelica Clarke MD [address] [place] [address] [place] [address] Internal Medicine 01/08/19 documented as of this encounter Additional Source Comments The information contained in this document represents components of the legal health record. It is not the complete legal health record.[facility]
--- OUTSIDE RECORDS SUMMARY | 2025-06-22 16:20 | XMS_ITS | Encounter Summary ---
Author Organization [facility] Address [address] [place] [address] Phone Care Team Providers Care Crushing Foreman Name Role Phone Anjelica Clarke MD Unavailable [phone] Roberto Carlos Hancock NP Primary Care Provider + Encounter Details Date Type Department Care Team (Late st Contact Info) Description 05/12/2025 Transcribe Orders Virtual Department [address] [place] [address] Roberto Carlos Hancock NP [facility] [place] [address] Breast screening (Primary Dx) Social History Tobacco Use Types [...] st Contact Info) Description 05/12/2025 Procedure Pass [address] [address] 12/27/2025 1:00 PM EDT Appointment [address] [address] Roberto Carlos Hancock NP [address] [facility] [place] [address] 01/13/2026 10:30 AM EDT Office Visit [address] 12th [place] [address] Gege Cedeno MD [address] [place] [address] [email or web address] Scheduled Orders Name Type Priority Associated Diagnoses Orde r Schedule Mammogram Screening (Bilateral) Imaging Routine Breast screening Expected: 06/12/2025, Expires: 05/12/2026 documented as of this encounter Visit Diagnoses Diagnosis Breast screening- Primary Breast screening, unspecified documented in this encounter Care Teams Crushing Foreman Relationship Specialty Start Date End Date Roberto Carlos Hancock NP [address] [facility] [place] [address] PCP - General Nurse Practitioner 05/12/25 Anjelica Clarke MD [address] [facility] [place] [address] Internal Medicine 01/08/19 documented as of this encounter Additional Source Comments The information contained in this document represents components of the legal health record. It is not the complete legal health record.[facility]
--- OUTSIDE RECORDS SUMMARY | 2025-06-22 16:20 | XMS_ITS | Encounter Summary ---
Author Organization [facility] Address On license of [facility] [facility] [address] [place] [address] Phone Care Team Providers Care Ager Tender Name Role Phone Calos Valiente MD Primary Care Provider [phone] Niels Sams MD Primary Care Provider [phone] Anjelica Clarke MD Unavailable [phone] Unknown, Unknown Primary Care Provider Anjelica Fajardo MD Primary Care Provider [phone] Roberto Carlos Hancock NP Primary Care Provider + Encounter Details Date Type Department Care Team (Latest Contact Info) Description 10/02/2017 Transcribe Orders [facility] Laboratory [address] [id number] Madina Bernal PA 10 [place], [place] [phone] Abdominal pain, left lower quadrant (Primary Dx) Social History Tobacco Use Types [...] st Contact Info) Description 05/12/2025 Procedure Pass [address] [address] 12/27/2025 1:00 PM EDT Appointment [address] [address] Roberto Carlos Hancock, SIMON [facility] [place] [address] 01/13/2026 10:30 AM EDT Office Visit [address] [address] Gege Cedeno MD [address] [place] [address] [email or web address] documented as of this encounter Results * C-Reactive Protein (10/02/2017 12:17 PM EST) C REACTIVE PROTEIN 0.1 0 - 0.5 mg/L [facility] Blood 10/02/2017 12:1 7 PM EST 10/02/2017 12:20 PM EST us Madina NUR LAB BLOOD ORDERABLES Final Result [address] [address] * Comprehensive metabolic panel (10/02/2017 12:17 PM EST) SODIUM 142 133 - 146 mmol/L [facility] POTASSIUM 4.5 3.3 - 5.1 mmol/L [facility] CHLORIDE 102 96 - 108 mmol/L [facility] CO2 30 21 - 35 mmol/L [facility] BUN 18 6 - 19 mg/dL [facility] CREATININE 0.60 0.5 - 1.5 mg/dL [facility] GLUCOSE 95 70 - 99 mg/dL [facility] ALBUMIN 4.5 3.9 - 4.8 g/dL [facility] TOTAL PROTEIN 7.4 6.5 - 8.0 g/dL [facility] CALCIUM 9.8 8.4 - 10.3 mg/dL [facility] ALKALINE PHOSPHATASE 63 39 - 117 U/L [facility] TOTAL BILIRUBIN 0.4 0 - 1.2 mg/dL [facility] AST 19 0 - 37 U/L [facility] ALT 10 0 - 40 U/L [facility] GLOBULIN 2.9 1 - 4.8 g/dL [facility] EGFR >60 mL/min/1.7 3m2 [facility] Comment:Abnormal if <60. If patient is -Tunisian, multiply the result by 1.21. ANION GAP 15 10 - 20 mmol/L [facility] Blood 10/02/2017 12:1 7 PM EST 10/02/2017 12:20 PM EST us Madina NUR LAB BLOOD ORDERABLES Final Result [facility] [address] [place] [address] * CBC and differential (10/02/2017 12:17 PM EST) WBC 6.61 3.40 - 11.20 K/uL [facility] RBC 4.65 3.80 - 4.80 M/uL [facility] HGB 13.7 12.0 - 15.0 g/dL [facility] HCT 42.5 36.0 - 46.0 % [facility] PLT 268 130 - 400 K/uL [facility] MCV 91.4 79.0 - 98.0 fL [facility] MCH 29.5 27.0 - 34.8 pg [facility] MCHC 32.2 31.5 - 36.0 g/dL [facility] RDW 13.3 10.8 - 14.6 % [facility] MPV 10.4 9.4 - 12.4 fl [facility] NRBC 0.00 /100 WBCs [facility] ABSOLUTE NRBC 0.00 K/uL [facility] DIFF METHOD Auto [facility] NEUTS 56.3 45.30 - 77.70 % [facility] LYMPHS 34.5 12.30 - 39.70 % [facility] MONOS 7.1 4.10 - 12.80 % [facility] EOS 1.4 0 - 7.2 % [facility] BASOS 0.2 0 - 2.80 % [facility] Granulocytes, immature (%) 0.5 0.0 - 0.9 % [facility] ABSOLUTE NEUTS 3.73 1.40 - 7.70 K/uL [facility] ABSOLUTE LYMPHS 2.28 0.60 - 3.20 K/uL [facility] ABSOLUTE MONOS 0.47 0.11 - 0.59 K/uL [facility] ABSOLUTE EOS 0.09 0.01 - 0.50 K/uL [facility] ABSOLUTE BASOS 0.01 0.00 - 0.08 K/uL [facility] Granulocytes, immature 0.03 0.00 - 0.05 K/uL [facility] Blood 10/02/2017 12:1 7 PM EST 10/02/2017 12:20 PM EST us Madina NUR LAB BLOOD ORDERABLES Final Result Performing Organization Address City/State/[facility] Co de Phone Number [facility] [address] [place] [address] documented in this encounter Visit Diagnoses Diagnosis Abdominal pain, left lower quadrant- Primary documented in this encounter Care Teams Ager Tender Relationship Specialty Start Date End Date Calos Valiente MD [address] [place] [address] [email or web address] PCP - General Family Medicine 09/04/17 12/15/17 Niels Sams MD [address] [place] [address] [email or web address] PCP - General Family Medicine 12/16/17 01/07/19 Unknown, Unknown, [address] [facility] [place] [address] PCP - General 01/08/19 05/30/20 Anjelica Clarke MD [facility] [place] [address] PCP - General Internal Medicine 05/31/20 05/11/25 Roberto Carlos Hancock NP [facility] [place] [address] PCP - General Nurse Practitioner 05/12/25 Anjelica Clarke MD [facility] [place] [address] Internal Medicine 01/08/19 documented as of this encounter Additional Source Comments The information contained in this document represents components of the legal health record. It is not the complete legal health record.[facility]
--- OUTSIDE RECORDS SUMMARY | 2025-06-22 16:20 | XMS_ITS | Encounter Summary ---
Author Organization [facility] Address [address] [place] [address] Phone Care Team Providers Care Commercial Intelligence Manager Name Role Phone Anjelica Clarke MD Unavailable [phone] Anjelica Clarke MD Primary Care Provider Roberto Carlos Hancock NP Primary Care Provider + Encounter Details Date Type Department Care Team (Late st Contact Info) Description 04/13/2024 Procedure Pass [facility], [address] [id number] Social History Tobacco Use Types Packs/Day Years [...] st Contact Info) Description 05/12/2025 Procedure Pass [address] [address] 12/27/2025 1:00 PM EDT Appointment [address] [address] Roberto Carlos Hancock NP [address] [facility] [place] [address] 01/13/2026 10:30 AM EDT Office Visit [address] 12th [place] [address] Gege Cedeno MD [address] [place] [address] [email or web address] documented as of this encounter Visit Diagnoses Not on filedocumented in this encounter Care Teams Commercial Intelligence Manager Relationship Specialty Start Date End Date Anjelica Clarke MD [address] [facility] [place] [address] PCP - General Internal Medicine 05/31/20 05/11/25 Roberto Carlos Hancock NP [address] [facility] [place] [address] PCP - General Nurse Practitioner 05/12/25 Anjelica Clarke MD [address] [facility] [place] [address] Internal Medicine 01/08/19 documented as of this encounter Additional Source Comments The information contained in this document represents components of the legal health record. It is not the complete legal health record.[facility]
--- OUTSIDE RECORDS SUMMARY | 2025-06-22 16:20 | XMS_ITS | Encounter Summary ---
Author Organization [facility] Address [address] [place] [address] [place] [address] Phone Care Team Providers Care Sales Assoc Name Role Phone Calos Valiente MD Primary Care Provider [phone] Niels Sams MD Primary Care Provider [phone] Anjelica Clarke MD Unavailable [phone] Unknown, Unknown Primary Care Provider Anjelica Fajardo MD Primary Care Provider [phone] Roberto Carlos Hancock NP Primary Care Provider + Reason for Referral * MRI/CAT Scan - Closed Specialty Diagnoses / Procedures Referred By Contjulius t Referred To Contact Radiology Diagnoses Other nonspecific abnormal finding of lung field (CODE) Procedures CT Chest Calos Valiente MD Phone: tel: fax: [email or web address] Referral ID Status Reason Start Date Expiration Date Visits Re quested Visits Authorized [id number] Closed 09/24/2017 09/24/2018 1 1 Encounter Details Date Type Department Care Team (Late st Contact Info) Description 09/24/2017 Ancillary Orders [facility] Department 30 [place] [address] Calos Valiente MD [address] [place] [address] [phone] [email or web address] Other nonspecific abnormal finding of lung field (CODE) Social History Tobacco Use Types Packs/Day Years [...] st Contact Info) Description 05/12/2025 Procedure Pass [address] [address] 12/27/2025 1:00 PM EDT Appointment [address] [address] Roberto Carlos Hancock, SIMON [facility] [place] [address] 01/13/2026 10:30 AM EDT Office Visit [address] [address] Gege Cedeno MD [address] [place] [address] [email or web address] documented as of this encounter Results * CT CHEST WITHOUT CONTRAST (10/08/2017 11:16 AM EST) Anatomical Region Laterality Modality Chest Computed Tomogra phy 10/08/2017 11:1 3 AM EST Impressions 10/08/2017 11:20 AM EST No variation evident relative to prior imaging. The superior segment right lower lobe nodule is again noted and remains unchanged. The lack of significant interval change dating back to July 28, 2015 is consistent with a benign process. TOTAL CTDIvol: 4.30 mGy S/S: Follow-up right lower lobe pulmonary nodule. . POS - [id number] Narrative 10/08/2017 11:20 AM EST COMPARISON: CT chest October 08, 2016 TECHNIQUE: Unenhanced imaging obtained from lung apex to base. Sagittal and coronal reformats generated. Automated exposure control utilized. FINDINGS: There is a hypodense mass in the inferior left thyroid lobe which is unchanged. No axillary pathology of concern is seen. There are moderate coronary artery calcifications noted. These are unchanged. The right lower lobe superior segment nodule measuring 7 x 10 mm is again evident and is unchanged. No significant acute infiltration or new pulmonary nodules are evident. The groundglass density evident in the right upper lobe is an insignificant finding. No significant pleural fluid is seen. No adrenal masses are evident. There are moderate degenerative changes in the thoracic spine. These appear unchanged. Procedure Note Hernandez Farmer MD - 10/08/2017 COMPARISON: CT chest October 08, 2016 TECHNIQUE: Unenhanced imaging obtained from lung apex to base. [place]itt[place] coronal reformats generated. Automated exposure control utilized. FINDINGS: There is a hypodense mass in the inferior left thyroid lobe which isunchanged. No axillary pathology of concern is seen. There are moderate coronary artery calcifications noted. These areunchanged. The right lower lobe superior segment nodule measuring 7 x 10 mm is againevident and is unchanged. No significant acute infiltration or newpulmonary nodules are evident. The groundglass density evident in theright upper lobe is an insignificant finding. No significant pleural fluid is seen. No adrenal masses are evident. There are moderate degenerative changes in the thoracic spine. Theseappear unchanged. IMPRESSION: No variation evident relative to prior imaging. The superior segment rightlower lobe nodule is again noted and remains unchanged. The lack ofsignificant interval change dating back to July 28, 2015 is consistentwith a benign process. TOTAL CTDIvol: 4.30 mGy S/S: Follow-up right lower lobe pulmonary nodule. . POS - [id number] Calos Valiente MD IMG CT CHEST Final Resu lt documented in this encounter Visit Diagnoses Diagnosis Other nonspecific abnormal finding of lung field (CODE) Other nonspecific abnormal finding of lung field (CODE) documented in this encounter Care Teams Sales Assoc Relationship Specialty Start Date End Date Calos Valiente MD [address] [place] [address] [email or web address] PCP - General Family Medicine 09/04/17 12/15/17 Niels Sams MD [address] [place] [address] [email or web address] PCP - General Family Medicine 12/16/17 01/07/19 Unknown, MD Nataly [address] [place] [address] [place] [address] PCP - General 01/08/19 05/30/20 Anjelica Clarke MD [address] [place] [address] [place] [address] PCP - General Internal Medicine 05/31/20 05/11/25 Roberto Carlos Hancock NP [address] [place] [address] [place] [address] PCP - General Nurse Practitioner 05/12/25 Anjelica Clarke MD [address] [place] [address] [place] [address] Internal Medicine 01/08/19 documented as of this encounter Additional Source Comments The information contained in this document represents components of the legal health record. It is not the complete legal health record.[facility]
--- OUTSIDE RECORDS SUMMARY | 2025-06-22 16:20 | XMS_ITS | Encounter Summary ---
Author Organization [facility] Address [facility] [employer] [facility] [address] [place] [address] Phone Care Team Providers Care Administrative Assistant Receptionist Name Role Phone Niels Sams MD Primary Care Provider [phone] Anjelica Clarke MD Unavailable [phone] Unknown, Unknown Primary Care Provider Anjelica Fajardo MD Primary Care Provider [phone] Roberto Carlos Hancock NP Primary Care Provider + Encounter Details Date Type Department Care Team (Late st Contact Info) Description 12/16/2017 Ancillary Orders [facility] External Provider Virtual Department 30 [place] [address] Calos Valiente MD 70 [place] [address] [email or web address] Social History Tobacco Use Types Packs/Day Years [...] st Contact Info) Description 05/12/2025 Procedure Pass [address] [address] 12/27/2025 1:00 PM EDT Appointment [address] [address] Roberto Carlos Hancock NP [address] [facility] [place] [address] 01/13/2026 10:30 AM EDT Office Visit [address] [address] Gege Cedeno MD [address] [place] [address] [email or web address] documented as of this encounter Visit Diagnoses Not on filedocumented in this encounter Care Teams Administrative Assistant Receptionist Relationship Specialty Start Date End Date Niels Sams MD [email or web address] PCP - General Family Medicine 12/16/17 01/07/19 Unknown, MD Nataly [address] [place] [address] PCP - General 01/08/19 05/30/20 Anjelica Clarke MD [address] [place] [address] PCP - General Internal Medicine 05/31/20 05/11/25 Roberto Carlos Hancock NP [address] [facility] [address] [place] PCP - General Nurse Practitioner 05/12/25 Anjelica Clarke MD [address] [place] [address] Internal Medicine 01/08/19 documented as of this encounter Additional Source Comments The information contained in this document represents components of the legal health record. It is not the complete legal health record.[facility]
--- OUTSIDE RECORDS SUMMARY | 2025-06-22 16:20 | XMS_ITS | Encounter Summary ---
Author Organization [facility] Address [facility] [address] [place] [address] Phone Care Team Providers Care Heading Repairer Name Role Phone Anjelica Clarke MD Unavailable [phone] Anjelica Clarke MD Primary Care Provider [phone] Roberto Carlos Hancock NP Primary Care Provider + Encounter Details Date Type Department Care Team (Late st Contact Info) Description 03/23/2022 Procedure Pass [address] [address] Social History Tobacco Use Types Packs/Day Years [...] st Contact Info) Description 05/12/2025 Procedure Pass [address] [address] 12/27/2025 1:00 PM EDT Appointment [address] [address] Roberto Carlos Hancock NP [address] [place] [address] 01/13/2026 10:30 AM EDT Office Visit [facility] [address] [place] [address] Gege Cedeno MD [address] [place] [address] [email or web address] documented as of this encounter Visit Diagnoses Not on filedocumented in this encounter Care Teams Heading Repairer Relationship Specialty Start Date End Date Anjelica Clarke MD [address] [place] [address] [place] [address] PCP - General Internal Medicine 05/31/20 05/11/25 Roberto Carlos Hancock NP [address] [place] [address] [place] [address] PCP - General Nurse Practitioner 05/12/25 Anjelica Clarke MD [address] [place] [address] [place] [address] Internal Medicine 01/08/19 documented as of this encounter Additional Source Comments The information contained in this document represents components of the legal health record. It is not the complete legal health record.[facility]
--- OUTSIDE RECORDS SUMMARY | 2025-06-22 16:20 | XMS_ITS | Encounter Summary ---
Author Organization [facility] Address [facility] [employer] [facility] [address] [place] [address] Phone Care Team Providers Care Braid Pattern Setter Name Role Phone Unknown, Unknown Primary Care Provider Calos Whitt MD Primary Care Provider [phone] Niels Sams MD Primary Care Provider [phone] Anjelica Clarke MD Unavailable [phone] Unknown, Unknown Primary Care Provider Anjelica Fajardo MD Primary Care Provider [phone] Roberto Carlos Hancock NP Primary Care Provider + Encounter Details Date Type Department Care Team (Latest Contact Info) Description 08/27/2017 Transcribe Orders [facility] Laboratory [address] [address] Madina Bernal PA 10 [place] [address] Abdominal pain, left lower quadrant (Primary Dx) [...] st Contact Info) Description 05/12/2025 Procedure Pass [address] [address] 12/27/2025 1:00 PM EDT Appointment [address] [address] Roberto Carlos Hancock, SIMON [address] [place] [address] [place] [address] 01/13/2026 10:30 AM EDT Office Visit [facility] [address] [facility] 12th [place] [address] Gege Cedeno MD [address] [place] [address] [email or web address] documented as of this encounter Results * Creatinine/eGFR (08/27/2017 1:29 PM EST) CREATININE 0.70 0.5 - 1.5 mg/dL [facility] EGFR >60 mL/min/1.7 3m2 [facility] Comment:Abnormal if <60. If patient is -Kenyan, multiply the result by 1.21. Blood 08/27/2017 1:29 PM EST 08/27/2017 1:32 PM EST us Madina NUR LAB BLOOD ORDERABLES Final Result [address] [address] documented in this encounter Visit Diagnoses Diagnosis Abdominal pain, left lower quadrant- Primary documented in this encounter Care Teams Braid Pattern Setter Relationship Specialty Start Date End Date Unknown, Unknown, MD PCP - General 05/30/17 09/03/17 Calos Valiente MD [address] [place] [address] [email or web address] PCP - General Family Medicine 09/04/17 12/15/17 Niels Sams MD [address] [place] [address] [email or web address] PCP - General Family Medicine 12/16/17 01/07/19 Unknown, Nataly, PCP - General 01/08/19 05/30/20 Anjelica Clarke MD [address] [facility] [place] [address] PCP - General Internal Medicine 05/31/20 05/11/25 Roberto Carlos Hancock NP [address] [facility] [place] [address] PCP - General Nurse Practitioner 05/12/25 Anjelica Clarke MD [address] [facility] [place] [address] Internal Medicine 01/08/19 documented as of this encounter Additional Source Comments The information contained in this document represents components of the legal health record. It is not the complete legal health record.[facility]
--- OUTSIDE RECORDS SUMMARY | 2025-06-22 16:20 | XMS_ITS | Encounter Summary ---
Author Organization [facility] Address [facility] [address] [place] [address] Phone Care Team Providers Care Jailkeeper Name Role Phone Calos Valiente MD Primary Care Provider [phone] Niels Sams MD Primary Care Provider Anjelica Clarke MD Unavailable [phone] Unknown, Unknown Primary Care Provider Anjelica Fajardo MD Primary Care Provider [phone] Roberto Carlos Hancock NP Primary Care Provider + Encounter Details Date Type Department Care Team (Late st Contact Info) Description 09/12/2017 Procedure Pass [facility] [place] [facility] DE[facility] [address] [place] [address] Social History Tobacco Use Types Packs/Day Years [...] st Contact Info) Description 05/12/2025 Procedure Pass [address] [address] 12/27/2025 1:00 PM EDT Appointment [address] [address] Roberto Carlos Hancock NP [address] [facility] [place] [address] 01/13/2026 10:30 AM EDT Office Visit [facility] [address] [facility] [address] [place] [address] Gege Cedeno MD [address] [place] [address] [email or web address] documented as of this encounter Visit Diagnoses Not on filedocumented in this encounter Care Teams Jailkeeper Relationship Specialty Start Date End Date Calos Valiente MD [address] [place] [address] PCP - General Family Medicine 09/04/17 12/15/17 Niels Sams MD [address] [place] [address] [email or web address] PCP - General Family Medicine 12/16/17 01/07/19 Unknown, MD Nataly [address] [facility] [place] [address] PCP - General 01/08/19 05/30/20 Anjelica Clarke MD [address] [facility] [place] [address] PCP - General Internal Medicine 05/31/20 05/11/25 Roberto Carlos Hancock NP [address] [facility] [place] [address] PCP - General Nurse Practitioner 05/12/25 Anjelica Clarke MD [employer] [facility] [place] [address] Internal Medicine 01/08/19 documented as of this encounter Additional Source Comments The information contained in this document represents components of the legal health record. It is not the complete legal health record.[facility]
--- OUTSIDE RECORDS SUMMARY | 2025-06-22 16:21 | XMS_ITS | Encounter Summary ---
Author Organization [facility] Address [facility] J C Lads [address] [address] Phone Care Team Providers Care Epic Cupid Specialists Name Role Phone Niels Sams MD Primary Care Provider [phone] Anjelica Clarke MD Unavailable [phone] Unknown, Unknown Primary Care Provider Anjelica Fajardo MD Primary Care Provider [phone] Roberto Carlos Hancock NP Primary Care Provider + Encounter Details Date Type Department Care Team (Late Contact Info) Description 11/21/2018 Ancillary Orders Virtual Department [address] [place] [address] Niels Sams MD [address] [place] [address] Breast screening Social History Tobacco Use Types [...] st Contact Info) Description 05/12/2025 Procedure Pass [address] [address] 12/27/2025 1:00 PM EDT Appointment [address] [address] Roberto Carlos Hancock, SIMON [address] [facility] [place] [address] 01/13/2026 10:30 AM EDT Office Visit [address] [address] Gege Cedeno MD [address] [place] [address] [email or web address] documented as of this encounter Results * BI MAMMOGRAM SCREENING WITH TOMOSYNTHESIS WITH CAD (BILATERAL) (01/28/2019 11:07 AM EDT) Anatomical Region Laterality Modality Breast Left, Breast Right, Breast Bilateral Bila teral Mammography 01/28/2019 6:40 PM EDT Impressions 01/28/2019 6:46 PM EDT No mammographic change indicative of malignancy. Routine screening is recommended. BI-RADS CATEGORY: 2 - Benign finding. DENSITY: There are scattered fibroglandular densities. POS - [id number] Narrative 01/28/2019 6:46 PM EDT FINDINGS: Bilateral full-field digital screening mammography is [...] skin thickening, or new asymmetry is detected. Procedure Note Meron Corado MD - 01/28/2019 FINDINGS: Bilateral full-field digital screening mammography is obtained and read inconjunction with computer-aided detection. 3-D tomosynthesis as well as2-D C view imaging is also performed. Comparison includes the most recentexam from 01/27/2018 and as far back as 04/21/2012. Breasts are composed of scattered fibroglandular tissue. Waxing andwaning circumscribed lesions bilaterally in a pattern seen with cysts.Stable bilateral nodularity. Scattered and loosely grouped calcificationswithout worrisome change. No new suspicious mass, suspiciousmicrocalcifications, architectural distortion, focal skin thickening, ornew asymmetry is detected. IMPRESSION: No mammographic change indicative of malignancy. Routine screening isrecommended. BI-RADS CATEGORY: 2 - Benign finding. DENSITY: There are scattered fibroglandular densities. POS - [id number] Niels Sams MD IMG MG EXAMS Final Result documented in this encounter Visit Diagnoses Diagnosis Breast screening Breast screening, unspecified Breast screening Breast screening, unspecified documented in this encounter Care Teams Epic Cupid Specialists Relationship Specialty Start Date End Date Niels Sams MD [email or web address] PCP - General Family Medicine 12/16/17 01/07/19 Unknown, Nataly, [address] [place] [address] PCP - General 01/08/19 05/30/20 Anjelica Clarke MD [address] [place] [address] PCP - General Internal Medicine 05/31/20 05/11/25 Roberto Carlos Hancock NP [address] [place] [address] PCP - General Nurse Practitioner 05/12/25 Anjelica Clarke MD [facility] [address] [place], [place] [address] Internal Medicine 01/08/19 documented as of this encounter Additional Source Comments The information contained in this document represents components of the legal health record. It is not the complete legal health record.[facility]
--- OUTSIDE RECORDS SUMMARY | 2025-06-22 16:21 | XMS_ITS | Encounter Summary ---
Author Organization [facility] Address [facility] [address] [place] [address] Phone Care Team Providers Care Technical Photographer Name Role Phone Anjelica Clarke MD Unavailable [phone] Unknown, Unknown Primary Care Provider Anjelica Fajardo MD Primary Care Provider [phone] Roberto Carlos Hancock NP Primary Care Provider + Encounter Details Date Type Department Care Team (Late st Contact Info) Description 05/24/2020 Procedure Pass [address] [address] Social History Tobacco Use Types Packs/Day Years [...] st Contact Info) Description 05/12/2025 Procedure Pass [address] [address] 12/27/2025 1:00 PM EDT Appointment [facility] [address] [place] [address] Roberto Carlos Hancock NP [address] [facility] [place] [address] 01/13/2026 10:30 AM EDT Office Visit [facility] [address] [facility] 12th [place] [address] Gege Cedeno MD [address] [place] [address] [email or web address] documented as of this encounter Visit Diagnoses Not on filedocumented in this encounter Care Teams Technical Photographer Relationship Specialty Start Date End Date Unknown, Unknown, MD [address] [facility] [place] [address] PCP - General 01/08/19 05/30/20 Anjelica Clarke MD [address] [facility] [place] [address] PCP - General Internal Medicine 05/31/20 05/11/25 Roberto Carlos Hancock NP [address] [facility] [place] [address] PCP - General Nurse Practitioner 05/12/25 Anjelica Clarke MD [facility] [place] [address] Internal Medicine 01/08/19 documented as of this encounter Additional Source Comments The information contained in this document represents components of the legal health record. It is not the complete legal health record.[facility]
--- OUTSIDE RECORDS SUMMARY | 2025-06-22 16:21 | XMS_ITS | Clinical Summary ---
Author Organization [facility] Address [address] [facility] [address] [place] [address] Phone Care Team Providers Care District Traffic Chief Name Role Phone Anjelica Clarke MD Unavailable [phone] Roberto Carlos Hancock NP Primary Care Provider + Allergies Active Allergy Reactions Criticality Noted Date Comments Sulfa (Sulfonamide Antibiotics) GI Upset Medium 10/2014 Medications calcium acetate (PHOSLO) 667 mg (169 mg elemental) capsule CALCIUM ACETATE ( 1 LQOEWO=263 MG) ; Dose: Not available; Form: Not available; Route: PO; Frequency: Not available; Directions: As directed; Details: Dispense: Capsule(s); Taking; Status: Active; Source: KERRY LOPEZ M.D.; Date: 03/24/2015 5 Active Ca cmb [id number] 120-1,000-10 mg-unit-mg Tab VITAMIN D3 (CHOLECALCIFEROL ); Dose: Not available; Form: Not available; Route: PO; Frequency: Not available; Directions: As directed; Details: Dispense: Capsule(s); Taking; Status: Active; Source: KERRY LOPEZ M.D.; Date: 03/24/2015 5 Active glucosamine sulfate 500 mg Tab GLUCOSAMINE 500 MG TABLET; Dose: 500 MG; Form: Take 1 TABLET; Route: PO; Frequency: BID; Directions: Not available; Details: Dispense: Tablet(s); Status: Active; Source: KERRY LOPEZ M.D.; Date: 04/13/2015 5 Active CRANBERRY FRUIT EXTRACT (CRAN-MAX ORAL) Take by mouth. Active ginkgo biloba 40 mg Tab Take by mouth. Activ e CALCIUM ORAL Take by mouth. Ac tive pantoprazole (PROTONIX) 40 MG tablet Take 40 mg by mouth daily. Active fluticasone propionate (FLONASE) 50 mcg/actuation nasal spray 1 spray by Nasal route daily. Active timolol (TIMOPTIC) 0.5 % ophthalmic solution INSTILL 1 DROP IN BOTH EYES TWICE DAILY 2 Active latanoprost (XALATAN) 0.005 % ophthalmic solution INSTILL 1 DROP IN RIGHT EYE EVERY NIGHT AT BEDTIME 2 Active hydroCHLOROthia zide (HYDRODIURIL) 12.5 MG tablet Take 12.5 mg by mouth daily. 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 Malignant melanoma 04/13/2015 Overview (08/30/2015): Malignant melanoma Bilateral cataracts 03/24/2015 Overview (08/30/2015): Cataracts Resolved Problems Problem Noted Date Diagnosed Date Resolved Date Age-related nuclear cataract of right eye 09/12/2017 09/12/2017 Encounters Date Type Department Care Team Description 05/12/2025 Transcribe Orders [facility] Department [address] [place] [address] Roberto Carlos Hancock NP Breast screening (Primary Dx) from Last 3 Months Family History Medical History Relation Comments Uncoded Family History Brother small sebastian l cancer Breast cancer Mother Breast Cancer Hypertension Mother Hypertension Relation Status Comments Brother Mother Social History Tobacco Use Types Packs/Day Years [...] Orientation Straight 12/31/2024 7: 47 PM EDT Last Filed Vital Signs Vital Sign Reading Time Taken Comments Blood Pressure 143/87 09/12/2017 12:15 PM EST Pulse 85 09/12/2017 12:15 PM EST Temperature 36.7 C (98 F) 09/12/2017 11:59 AM EST Respiratory Rate 16 09/12/2017 12:15 PM EST Oxygen Saturation 99% 09/12/2017 11:59 AM EST Inhaled Oxygen Concentration - - Weight 61.2 kg (135 lb) 09/12/2017 10:21 AM EST Height 157.5 cm (5' 2 ) 09/12/2017 10:21 AM EST Body Mass Index 24.69 09/12/2017 10:21 AM EST Plan of Treatment Upcoming Encounters Date Type Department Care Team (Late st Contact Info) Description 05/12/2025 Procedure Pass [address] [address] 12/27/2025 1:00 PM EDT Appointment [address] [address] Roberto Carlos Hancock NP [address] [place] [address] 01/13/2026 10:30 AM EDT Office Visit [facility] [address] [facility] 12th [place] [address] Simone Cedeno MD [address] [place] [address] [email or web address] Health Maintenance Due Date Last Done Comments Adult Td,Tdap Booster 1940 DEPRESSION SCREENING 1953 PNEUMOCOCCAL VACCINES (50+ years) (1 of 2 - PCV) 1960 ZOSTER VACCINES (1 of 2) 1960 OSTEOPOROSIS SCREENING INITIAL (ONE-TIME) 2006 RSV VACCINE (1 - 1-dose 75+ series) 2016 POTASSIUM LEVEL 10/02/2018 10/02/2017, 11/2014, 04/12/2015, Additional history exists INFLUENZA VACCINE (#1) 2025 COVID-19 VACCINE ( season) 2025 01/05/2021, 12/15/2020 HEPATITIS A VACCINES Aged Out No long er eligible based on patient's age to complete this topic HIB VACCINES Aged Out No longer eligi ble based on patient's age to complete this topic MENINGOCOCCAL VACCINES (ACWY) Aged Out No longer eligible based on patient's age to complete this topic MENINGOCOCCAL VACCINES (B) Aged Out N o longer eligible based on patient's age to complete this topic Medical Devices Implanted Type Area Chef Teacher Device Identifier Shelf Expiration Date Model / Serial / Lot Metal Description:Metal rings R. e ye and R. hip Iol Acrysof Iq [id number] 20.5d - [id number] Implanted:Qty: 1 on 09/12/2017 by Agnieszka Shen MD at [facility] Right: Eye JOHN PAUL 07/23/2021 / [id number] / Procedures Procedure Name Priority Date/Time Associated Diagnosis Comments COMPREHENSIVE METABOLIC PANEL Routine 10/02/2017 12:17 PM EST Abdominal pain, left lower quadrant from Last 3 Months or Most Recently Relevant to Health Maintenance Results * Comprehensive metabolic panel (10/02/2017 12:17 PM EST) SODIUM 142 133 - 146 mmol/L [facility] POTASSIUM 4.5 3.3 - 5.1 mmol/L [facility] CHLORIDE 102 96 - 108 mmol/L [facility] CO2 30 21 - 35 mmol/L [facility] BUN 18 6 - 19 mg/dL [facility] CREATININE 0.60 0.5 - 1.5 mg/dL [facility] GLUCOSE 95 70 - 99 mg/dL [facility] ALBUMIN 4.5 3.9 - 4.8 g/dL [facility] TOTAL PROTEIN 7.4 6.5 - 8.0 g/dL [facility] CALCIUM 9.8 8.4 - 10.3 mg/dL [facility] ALKALINE PHOSPHATASE 63 39 - 117 U/L [facility] TOTAL BILIRUBIN 0.4 0 - 1.2 mg/dL [facility] AST 19 0 - 37 U/L [facility] ALT 10 0 - 40 U/L [facility] GLOBULIN 2.9 1 - 4.8 g/dL [facility] EGFR >60 mL/min/1.7 3m2 [facility] Comment:Abnormal if <60. If patient is -Sol[place] Islander, multiply the result by 1.21. ANION GAP 15 10 - 20 mmol/L [facility] Blood 10/02/2017 12:1 7 PM EST 10/02/2017 12:20 PM EST us [place] NUR LAB BLOOD ORDERABLES Final Result Performing Organization Address City/State/[facility] Co de Phone Number [facility] [address] [place] [address] from Last 3 Months or Most Recently Relevant to Health Maintenance Insurance MEDICARE PART A & [place] [id number] MEDICARE PART A & B [facility] MEDICARE SUPPLEMENT MEDICARE PART A & B [id number] [place] [address] MEDICARE SUPPLEMENT [facility] [place] [address] MEDICARE PART A & B [facility] MEDICARE SUPPLEMENT MEDICARE PART A & B MEDICARE SUPPLEMENT MEDICARE PART A & B Member Subscriber Plan / Payer (Ef fective 2006-Present) Name:PorterIrene Member ID:[id number] Relation to Subscriber:Self Name:Irene Porter Subscriber ID:[id number] Payer ID:[id number] Group ID:Not on file Type:Medicare Address: [employer] [address] MEDICARE SUPPLEMENT MEDICARE PART A & B [facility] MEDICARE SUPPLEMENT MEDICARE PART A & B Member Subscriber Plan / Payer (Ef fective 2006-Present) Name:CharlotteIreneSnehal Member ID:[id number] Relation to Subscriber:Self Name:Irene Porter Subscriber ID:[id number] Payer ID:[id number] Group ID:Not on file Type:Medicare Address: [employer] 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 It is not the complete legal health record.[facility]
--- OUTSIDE RECORDS SUMMARY | 2025-06-22 16:21 | XMS_ITS | Encounter Summary ---
Author Organization [facility] Address [facility] [employer] [facility] [address] [place] [address] Phone Care Team Providers Care Doormaker Name Role Phone Anjelica Clarke MD Unavailable [phone] Unknown, Unknown Primary Care Provider Anjelica Fajardo MD Primary Care Provider [phone] Roberto Carlos Hancock NP Primary Care Provider + Encounter Details Date Type Department Care Team (Late st Contact Info) Description 11/06/2019 Ancillary Orders Virtual Department [address] [place] [address] Anjelica Clarke MD [address] [place] [address] Dr [place]iere[place] [address] Breast screening Social History Tobacco Use Types [...] st Contact Info) Description 05/12/2025 Procedure Pass [facility] [address] [address] 12/27/2025 1:00 PM EDT Appointment [address] [address] Roberto Carlos Hancock NP [address] [facility] [place] [address] 01/13/2026 10:30 AM EDT Office Visit [facility] [address] [facility] 12th [place] [address] Gege Cedeno MD [address] [place] [address] [email or web address] documented as of this encounter Results * (ABNORMAL) BI MAMMOGRAM SCREENING WITH TOMOSYNTHESIS WITH CAD (BILATERAL) (05/31/2020 11:37 AM EDT) Anatomical Region Laterality Modality Breast Left, Breast Right, Breast Bilateral Bila teral Mammography 05/31/2020 12:2 6 PM EDT Impressions 05/31/2020 12:31 PM EDT New dominant lesion in the medial right breast suspected to represent a cyst given the appearance of additional lax and waning nodules bilaterally. However, due to the size I would recommend that sonographic confirmation be performed to exclude a solid mass. No other significant findings apparent. BI-RADS CATEGORY: 0 - Incomplete. Need additional imaging evaluation. DENSITY: The breast tissue is heterogeneously dense, an appearance which lowers the sensitivity of mammography. RIGHT RECOMMENDATION DUE DATE: 1 Month Additional Imaging Callback views: Full field mediolateral combo. Ultrasound. LEFT RECOMMENDATION DUE DATE: Annual Left Mammography Screening Narrative 05/31/2020 12:31 PM EDT Standard digital full-field 2-D C view and two-plane tomographic imaging was performed and compared with multiple prior studies, most recently 01/28/2019, with utilization of computer-aided detection. The breast parenchyma is heterogeneously dense, somewhat limiting mammographic sensitivity. Numerous chronic waxing and waning nodules bilaterally are consistent with cysts although there is a dominant 9 mm circumscribed lesion now evident in the medial right breast approximately 6.2 cm from the nipple on the craniocaudal view. The stromal markings are otherwise essentially unchanged in overall appearance and distribution. No dominant spiculated mass, suspicious clustered microcalcifications, or focal zone of pathologic skin thickening or retraction are noted to have arisen in the interim. Anjelica Clarke MD IMG MG EXAMS Final Result documented in this encounter Visit Diagnoses Diagnosis Breast screening Breast screening, unspecified Breast screening Breast screening, unspecified documented in this encounter Care Teams Doormaker Relationship Specialty Start Date End Date Unknown, Unknown, MD [address] [facility] [place] [address] PCP - General 01/08/19 05/30/20 Anjelica Clarke MD [address] [facility] [place] [address] PCP - General Internal Medicine 05/31/20 05/11/25 Roberto Carlos Hancock NP [address] [facility] [place] [address] PCP - General Nurse Practitioner 05/12/25 Anjelica Clarke MD [address] [facility] [place] [address] Internal Medicine 01/08/19 documented as of this encounter Additional Source Comments The information contained in this document represents components of the legal health record. It is not the complete legal health record.[facility]
--- OUTSIDE RECORDS SUMMARY | 2025-06-22 16:21 | XMS_ITS | Encounter Summary ---
Author Organization [facility] Address [facility] [address] [place] [address] Phone Care Team Providers Care Surfacer Operator Name Role Phone Anjelica Clarke MD Unavailable [phone] Anjelica Clarke MD Primary Care Provider [phone] Roberto Carlos Hancock NP Primary Care Provider + Encounter Details Date Type Department Care Team (Late st Contact Info) Description 06/01/2020 Ancillary Orders [facility] Department [address] [place] [address] Anjelica Clarke MD [address] [place] [address] [place] [address] Abnormal mammogram Social History Tobacco Use Types Packs/Day Years [...] st Contact Info) Description 05/12/2025 Procedure Pass [facility] [address] [place] [address] 12/27/2025 1:00 PM EDT Appointment [facility], [facility] [address] [place] [address] Roberto Carlos Hancock, SIMON [facility] [place] [address] 01/13/2026 10:30 AM EDT Office Visit [facility] [address] [facility] 12th [place] [address] Gege Cedeno MD [address] [place] [address] [email or web address] documented as of this encounter Results * BI US BREAST LIMITED (RIGHT) (06/29/2020 1:58 PM EDT) Anatomical Region Laterality Modality Breast Right, Breast Bilateral Right U ltrasound 06/29/2020 1:53 PM EDT Narrative 06/29/2020 1:58 PM EDT Refer to the mammogram report. Procedure Note Danisha Desai MD - 06/29/2020 Refer to the mammogram report. Anjelica Clarke MD [facility] US BREAST Final Result * BI MAMMOGRAM DIAGNOSTIC WITH TOMOSYNTHESIS NO CAD (RIGHT) (06/29/2020 1:22 PM EDT) Anatomical Region Laterality Modality Breast Right, Breast Bilateral Right M ammography 06/29/2020 1:28 PM EDT Impressions 06/29/2020 1:57 PM EDT Additional imaging confirms a 1 cm benign simple right breast cyst at 5:00. No mammographic evidence of malignancy. Recommend return to routine annual surveillance. Findings relayed to the patient via the technologist. BI-RADS CATEGORY 2 - BENIGN DENSITY: The breast tissue is heterogeneously dense, an appearance which lowers the sensitivity of mammography. RIGHT RECOMMENDATION DATE: 12 Months Mammography Screening Narrative 06/29/2020 1:57 PM EDT 79-year-old female who presents for callback mammogram for a right breast mass. Comparison made to previous on 05/31/2020 and as far back as 11/25/2013. Interpretation made in conjunction with computer-aided detection and tomosynthesis. Right ML view obtained. The right breast is heterogeneously dense, which may obscure small masses. The 9 mm circumscribed mass is identified in the inferior breast. There is incompletely wall calcification. Stable scattered calcifications. Right breast ultrasound was obtained. At 5:00 5 cm from the nipple is a simple appearing 1 cm cyst. Anjelica Clarke MD IMG MG EXAMS Final Result documented in this encounter Visit Diagnoses Diagnosis Abnormal mammogram Abnormal mammogram, unspecified Abnormal mammogram Abnormal mammogram, unspecified Abnormal mammogram Abnormal mammogram, unspecified documented in this encounter Care Teams Surfacer Operator Relationship Specialty Start Date End Date Anjelica Clarke MD [address] [facility] [place] [address] PCP - General Internal Medicine 05/31/20 05/11/25 Roberto Carlos Hancock NP [address] [facility] [place] [address] PCP - General Nurse Practitioner 05/12/25 Anjelica Clarke MD [address] [facility] [place] [address] Internal Medicine 01/08/19 documented as of this encounter Additional Source Comments The information contained in this document represents components of the legal health record. It is not the complete legal health record.[facility]
--- OUTSIDE RECORDS SUMMARY | 2025-06-22 16:21 | XMS_ITS | Encounter Summary ---
Author Organization [facility] Address [address] [place] [address] Phone Care Team Providers Care Technical Service Specialist Name Role Phone Anjelica Clarke MD Unavailable [phone] Anjelica Clarke MD Primary Care Provider [phone] Roberto Carlos Hancock NP Primary Care Provider + Encounter Details Date Type Department Care Team (Late st Contact Info) Description 04/05/2023 Procedure Pass [facility], [address] [id number] Social History Tobacco Use Types Packs/Day Years [...] st Contact Info) Description 05/12/2025 Procedure Pass [address] [address] 12/27/2025 1:00 PM EDT Appointment [address] [address] Roberto Carlos Hancock NP [address] [facility] [place] [address] 01/13/2026 10:30 AM EDT Office Visit [address] 12th [place] [address] Gege Cedeno MD [address] [place] [address] [email or web address] documented as of this encounter Visit Diagnoses Not on filedocumented in this encounter Care Teams Technical Service Specialist Relationship Specialty Start Date End Date Anjelica Clarke MD [address] [facility] [place] [address] PCP - General Internal Medicine 05/31/20 05/11/25 Roberto Carlos Hancock NP [address] [facility] [place] [address] PCP - General Nurse Practitioner 05/12/25 Anjelica Clarke MD [address] [facility] [place] [address] Internal Medicine 01/08/19 documented as of this encounter Additional Source Comments The information contained in this document represents components of the legal health record. It is not the complete legal health record.[facility]
--- OUTSIDE RECORDS SUMMARY | 2025-06-22 16:21 | XMS_ITS | Encounter Summary ---
Author Organization [facility] Address [facility] [address] [place] [address] Phone Care Team Providers Care Cardiovascular Radiologic Technologist Name Role Phone Anjelica Clarke MD Unavailable [phone] Anjelica Clarke MD Primary Care Provider [phone] Roberto Carlos Hancock NP Primary Care Provider + Encounter Details Date Type Department Care Team (Late st Contact Info) Description 03/23/2022 Transcribe Orders Virtual Department [address] [place] [address] Anjelica Clarke MD [address] [place] [address] Dr OliviereSONU [address] Encounter for screening mammogram for malignant neoplasm of breast (Primary Dx) Social History Tobacco Use Types [...] st Contact Info) Description 05/12/2025 Procedure Pass [address] [address] 12/27/2025 1:00 PM EDT Appointment [address] [address] Roberto Carlos Hancock NP [address] [facility] [place] [address] 01/13/2026 10:30 AM EDT Office Visit [facility] [address] [facility] 12th [place] [address] Gege Cedeno MD [address] [place] [address] [email or web address] documented as of this encounter Results * BI MAMMOGRAM SCREENING WITH TOMOSYNTHESIS WITH CAD (BILATERAL) (06/21/2022 1:39 PM EDT) Anatomical Region Laterality Modality Breast Left, Breast Right, Breast Bilateral Bila teral Mammography 06/22/2022 8:56 AM EDT Impressions 06/22/2022 8:59 AM EDT No mammographic evidence of malignancy. Recommend routine annual surveillance. BI-RADS CATEGORY: 2 - Benign finding. DENSITY: The breast tissue is heterogeneously dense, which could obscure a lesion on mammography. Narrative 06/22/2022 8:59 AM EDT 81-year-old female. Comparison made to previous on 06/12/2021 and as far back as 11/14/2005. Interpretation made in conjunction with computer-aided detection and tomosynthesis. The breasts are heterogeneously dense, which may obscure small masses. Waxing and waning and small bilateral masses indicative of cysts. Chronic bilateral benign scattered calcifications and vascular calcifications. There are no suspicious masses, areas of architectural distortion, or suspicious clusters of microcalcifications. us Provider Not In System PhD IMG MG EXAMS Final Result documented in this encounter Visit Diagnoses Diagnosis Encounter for screening mammogram for malignant neoplasm of breast- Primary Encounter for screening mammogram for malignant neoplasm of breast documented in this encounter Care Teams Cardiovascular Radiologic Technologist Relationship Specialty Start Date End Date Anjelica Clarke MD [address] [facility] [address] PCP - General Internal Medicine 05/31/20 05/11/25 Roberto Carlos Hancock NP [address] [facility] [address] PCP - General Nurse Practitioner 05/12/25 Anjelica Clarke MD [address] [facility] [address] Internal Medicine 01/08/19 documented as of this encounter Additional Source Comments The information contained in this document represents components of the legal health record. It is not the complete legal health record.[facility]
--- OUTSIDE RECORDS SUMMARY | 2025-06-22 16:21 | XMS_ITS | Encounter Summary ---
Author Organization [facility] Address [facility] [employer] [facility] [address] [place] [address] Phone Care Team Providers Care Manager Health Name Role Phone Anjelica Clarke MD Unavailable [phone] Anjelica Clarke MD Primary Care Provider [phone] Roberto Carlos Hancock NP Primary Care Provider + Encounter Details Date Type Department Care Team (Late st Contact Info) Description 06/01/2020 Procedure Pass [address] [address] Social History Tobacco Use Types Packs/Day Years [...] Contact Info) Description 05/12/2025 Procedure Pass [address] [address] 12/27/2025 1:00 PM EDT Appointment [address] [address] Roberto Carlos Hancock NP [address] [facility] [place] [address] 01/13/2026 10:30 AM EDT Office Visit [facility] [address]th [place] [address] Gege Cedeno MD [address] [place] [address] [email or web address] documented as of this encounter Visit Diagnoses Not on filedocumented in this encounter Care Teams Manager Health Relationship Specialty Start Date End Date Anjelica Clarke MD [address] [place] [address] [place] [address] PCP - General Internal Medicine 05/31/20 05/11/25 Roberto Carlos Hancock NP [address] [place] [address] [place] [address] PCP - General Nurse Practitioner 05/12/25 Anjelica Clarke MD [address] [place] [address] [place] [address] Internal Medicine 01/08/19 documented as of this encounter Additional Source Comments The information contained in this document represents components of the legal health record. It is not the complete legal health record.[facility]
[2025-06-22 16:56] LABS: Albumin Level 4.4 g/dL (3.5-5.0); Anion Gap 11 (12-20); Blood Urea Nitrogen 17 mg/dL (9-16); Calcium 9.3 mg/dL (8.4-10.2); Carbon Dioxide 31 mmol/L (22-29); Chloride 104 mmol/L (96-108); Cholesterol 217 mg/dL (<200); Estimated Glomerular Filt Rate > 60; HDL Cholesterol 44 mg/dL (>40); Magnesium 1.9 mg/dL (1.6-2.6); Potassium 3.3 mmol/L (3.3-5.1); Sodium 143 mmol/L (135-145); Triglycerides 222 mg/dL (<150)
[2025-06-22 17:28] LABS: Folate 18.6 ng/mL (> or = 4.0); Vitamin B12 633 pg/mL (200-900)
== END 2025-06-22 14:58 | disposition home or self-care (01) ==
LOC: HO.HMGCLDS 14:57
PROVIDERS: PCP Nurse Practitioner Family; Referring Provider Internal Medicine Endocrinology, Diabetes & Metabolism; Visit Provider Nurse Practitioner Family
DX: M81.0 Age-related osteoporosis without current pathological fracture (principal); R74.8 Abnormal levels of other serum enzymes; E78.5 Hyperlipidemia, unspecified
CPT/HCPCS: 36415; 80048; 80061; 82040; 82390; 82607; 82746; 83735; 84630

== ENCOUNTER 2025-07-13 10:46 | Outpatient (AMB) | payer MEDICARE, SELFPAY ==
--- NOTE | 2025-07-13 11:00 | A.OFFPC_ITS ---
Vital Signs 07/13/25 11:02 Height 4 ft 10 in Weight 130 lb BMI 27.2 BP 130/66 Blood Pressure Location Lt brachial Position Sitting Pulse 96 Pulse Source Pulse Oximeter Temp 98.4 F Temp Source Oral Pulse Oximetry (%) 96 Oxygen Delivery Method Room Air Intake Visit Reasons: PE Twister Hand Required: No Accompanied by: Self / Same As Patient Allergies aspirin (ASA) Allergy (Intermediate, Verified 07/13/25 11:02) TACHYCARDIA buspirone (From BuSpar) Allergy (Unknown, Verified 07/13/25 11:02) Stomach Upset atorvastatin Adverse Reaction (Intermediate, Verified 07/13/25 11:02) Headache Sulfa (Sulfonamide Antibiotics) (SULFA(SULFONAMIDE ANTIBIOTICS)) Adverse Reaction (Intermediate, Verified 07/13/25 11:02) VOMITING chlorthalidone Adverse Reaction (Unknown, Verified 07/13/25 11:02) Stomach pain, loss of appetite Tobacco use date assessed: 07/13/25 Fall risk assessment: No Falls in past year Last assessed Fall Risk: 07/13/25 Dental Screening Dental Screen Date: 07/13/25 Did you have a dental visit in the last 12 months?: No Did you have a dental problem in the last 6 months where you did not have access to dental care?: No HPI PE HPI Details Chief Complaint The patient presents with temporomandibular joint discomfort and associated symptoms. History of Present Illness The patient is an 84-year-old female presenting with temporomandibular joint disorder. She reports discomfort primarily on the left side, with popping sounds on the right, exacerbated by a recent dermatological procedure on her left cheek. She has a history of dyslipidemia, currently managed without medication, with plans for future lipid panel reassessment. 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 She follows up with endocrinology for osteoporosis management and continues with mammograms, having discontinued colon cancer screenings. Her gastroesophageal reflux disease is managed with pantoprazole twice daily. Social History Health Maintenance - Regular liver imaging for melanoma fol low-up - Mammograms are ongoing - Discontinued colon cancer screenings Review of Systems - Cardiovascular: Denies chest pain - Respiratory: Denies dyspnea - Neurological: Denies headaches, blurre d vision Physical Exam General: Cooperative, healthy appearing, comfortable, no acute distress and well developed Orientation: Patient oriented x3 Limitations: No limitations Head: Normal to inspection Ears: Hearing grossly normal bilaterally Nose: Normal external nose present Face and sinus: Crepitus noted to bilateral TMJs, right side worse than the left Eyes: Appearance normal, both eyes and all related structures Neck: Normal visual inspection and Yes full ROM Respiratory: Normal respiratory effort and able to speak in complete sentences. Clear to auscultation bilaterally Cardiovascular: Regular rate and rhythm. Normal S1 and S2 GI: Normal to inspection. Soft to palpation and nontender Neuro: Patient oriented x3 Extremities: Normal to inspection Results Plan 1. Temporomandibular Joint Disorder The patient is advised to perform exercises for temporomandibular joint disorder, which she can look up independently. Physical therapy was suggested but declined by the patient. 2. Dyslipidemia The patient is not currently interested in medication for dyslipidemia, but a follow-up lipid panel is planned in the next few months. 3. 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 4. Osteoporosis The patient continues to follow up with endocrinology for osteoporosis management. 5. Gastroesophageal Reflux Disease The patient is managing gastroesophageal reflux disease with pantoprazole twice daily. Discussion Notes I discussed with the patient the importance of performing exercises for her temporomandibular joint disorder and recommended that she look up exercises independently since she declined physical therapy. We also discussed the plan to recheck her lipid levels in a few months, given her current disinterest in medication for dyslipidemia. I emphasized the need for regular liver imaging to monitor for melanoma metastasis, as advised by her specialist. Patient Instructions - Perform recommended exercises for temp oromandibular joint disorder. - Follow up for lipid panel in a few mon ths. - Continue regular liver imaging as advi sed by your specialist. [facility] Medical History Idiopathic hypercalciuria Vitamin D deficiency Ingrown toenail of right foot Hip fracture, right Multinodular goiter Osteoporosis Melanoma, choroid Surgical History History of lobectomy of thyroid Hx of cholecystectomy H/O colonoscopy Family History Father No problems noted. Mother No problems noted. Social History Housing: House Alcohol intake: never Patient Tobacco Use Status: Never used Tobacco e-Cigarette/Vaping Use: Never Used Second Hand Smoke Exposure: No Current occupational status: retired Cognitive needs: No Hearing needs: No Vision needs: Yes Questionnaire PHQ-9 Over the last 2 weeks, how often have you been bothered by any of the following problems? 1. Little interest or pleasure in doing things: not at all 2. Feeling down, depressed, or hopeless: not at all 3. Trouble falling or staying asleep, or sleeping too much: not at all 4. Feeling tired or having little energy: not at all 5. Poor appetite or overeating: not at all 6. Feeling bad about yourself - or that you are a failure or have let yourself or your family down: not at all 7. Trouble concentrating on things, such as reading the newspaper or watching television: not at all 8. Moving or speaking so slowly that other people could have noticed. Or the opposite - being so fidgety or restless that you have been moving around a lot more than usual: not at all 9. Thoughts that you would be better off or of hurting yourself in some way: not at all Total score: 0 Depression Screening Interpretation: Negative Depression Screening Done: Yes 86451 - PHQ-9 Billing: Yes Source: Developed by Drs. Frank Estrada, Lorena Macias, Serafin De Dios and colleagues, with an educational maggie from [employer]. Thrive Questionnaire Date Thrive assessed: 03/02/25 I am a: Patient What is your living situation today?: I have a steady place to live Within the past 12 months, did the food you bought not last and you didn't have the money to get more?: I choose not to answer this question Within the past 12 months, did you worry whether your food would run out before you got money to buy more?: I choose not to answer this question Do you have trouble paying for medicines?: No Do you have trouble getting transportation to medical appointments?: No Do you have trouble paying your heating and electricity bill?: No Do you have trouble taking care of your child, family member or friend?: No Do you have trouble with day-to-day activities such as bathing, preparing meals, shopping, managing finances, etc.?: No Are you currently unemployed and looking for a job?: No Are you interested in more education?: No Please select the resources that you would like help with: None Currently or been in a relationship where the following occur: No concerns reported THRIVE Score: 0 AUDIT C Alcohol Use Questionnaire (AUDIT-C) 2. How many drinks containing alcohol do you have on a typical day when you are drinking?: 1 or 2 3. How often do you have six or more drinks on one occasion?: Never Total Score: 0 LAUREN-7 AMB Questionnaire LAUREN-7 Date LAUREN - 7 assessed: 03/09/25 Feeling nervous, anxious, or on edge: 0 = Not at all Not being able to stop or control worryin = Not at all Worrying too much about different things: 1 = Several days Trouble relaxin = Not at all Being so restless that it is hard to sit still: 0 = Not at all Becoming easily annoyed or irritable: 1 = Several days Feeling afraid as if something awful might happen: 0 = Not at all Total LAUREN-7 score (0-4 normal; 5-9 mild; 10-14 moderate; 15-21 severe): 2 Source: Developed by Drs. Frank Estrada, Lorena Macias, Serafin De Dios and colleagues, with an educational maggie from [employer]. LAUREN-7 Assessment Billing LAUREN-7 Assessment Tool: LAUREN-7 Assessment 97589 Physical exam (Primary Care) Vital Signs: Last Vital Signs Temp 98.4 F 07/13/25 11:02 Pulse 96 07/13/25 11:02 BP 130/66 07/13/25 11:02 Pulse Ox 96 07/13/25 11:02 Oxygen Delivery Method Room Air 07/13/25 11:02 BMI result Body Mass Index 27.2 Tobacco/Smoking Status: Tobacco use Status Tobacco use date assessed 07/13/25 07/13/25 11:09 Patient Tobacco Use Status Never used Tobacco 07/13/25 11:02 e-Cigarette/Vaping Use Never Used 07/13/25 11:02 PHQ-9: PHQ-9 Score PHQ-9: Total score 0 07/13/25 11:10 Depression Screening Interpretation: Negative Thrive Assessment: Date of Thrive Assessment Date Thrive assessed 03/02/25 07/13/25 11:02 Currently or been in a relationship where the following occur: No concerns reported Coding Level of Care Code Est Pt Level 3 (94986) Diagnoses Dyslipidemia E78.5 Melanoma, choroid C69.30 Additional Codes LAUREN-7 Assessment Billing - LAUREN-7 Assessment Tool: LAUREN-7 Assessment 19443 ([id number]) PHQ-9 - 12771 - PHQ-9 Billing: Yes ([id number]) Assessment & Plan Assessment & Plan (1) Dyslipidemia: Code(s): E78.5 - Hyperlipidemia, unspecified Category: Medical (2) Melanoma, choroid: Comment: rt. eye in 2014 irradiation LFT Q 6 months Code(s): C69.30 - Malignant neoplasm of unspecified choroid Category: Medical Plan . Orders: Orders TSH reflex Free T4 Today E78.5 - Hyperlipidemia, unspecified UA CC w/rflx Micro + Cult Today E78.5 - Hyperlipidemia, unspecified Complete Blood Count Auto Diff Today E78.5 - Hyperlipidemia, unspecified Comprehensive [place]. Panel Fast Today E78.5 - Hyperlipidemia, unspecified Lipid Panel Today E78.5 - Hyperlipidemia, unspecified Vitamin D 25-OH Total Today E78.5 - Hyperlipidemia, unspecified US abdomen complete Today C69.30 - Malignant neoplasm of unspecified choroid
[2025-07-13 11:02] VITALS: BP 130/66; PULSE 96; TEMP 36.9; O2SAT 96; BMI 27.2
--- OUTSIDE RECORDS SUMMARY | 2025-07-13 13:06 | XMS_ITS | Encounter Summary ---
Author Organization [facility] Address [address] [place] [address] [place] [address] Phone Care Team Providers Care Hydraulic Controls Technician Name Role Phone Unknown, Unknown Primary Care Provider Calos Whitt MD Primary Care Provider [phone] Niels Sams MD Primary Care Provider [phone] Anjelica Clarke MD Unavailable [phone] Unknown, Unknown Primary Care Provider Anjelica Fajardo MD Primary Care Provider Roberto Carlos Hancock NP Primary Care Provider + Reason for Referral * MRI/CAT Scan - Closed Specialty Diagnoses / Procedures Referred By Contac t Referred To Contact Radiology Diagnoses Abdominal pain, left lower quadrant Procedures CT Abdomen/Pelvis Madina Bernal PA Phone: tel: fax: Referral ID Status Reason Start Date Expiration Date Visits Re quested Visits Authorized [id number] Closed 08/27/2017 08/27/2018 1 1 Encounter Details Date Type Department Care Team (Late st Contact Info) Description 08/27/2017 Ancillary Orders [facility] External Provider Virtual Department [address] [place] [address] Madina Bernal PA [address] [place] [phone] Abdominal pain, left lower quadrant Social History [...] st Contact Info) Description 05/12/2025 Procedure Pass [address] [address] 12/27/2025 1:00 PM EDT Appointment [address] [address] Roberto Carlos Hancock, SIMON [address] [place] [address] [place] [id number] 01/13/2026 10:30 AM EDT Office Visit [address] [address] Gege Cedeno MD [address] [place] [address] [email or web address] documented as of this encounter Results [...] quadrant documented in this encounter Care Teams Hydraulic Controls Technician Relationship Specialty Start Date End Date Unknown, Unknown, MD PCP - General 05/30/17 09/03/17 Calos Valiente MD [address] [place] [phone] [email or web address] PCP - General Family Medicine 09/04/17 12/15/17 Niels Sams MD [address] [place] [phone] [email or web address] PCP - General Family Medicine 12/16/17 01/07/19 Unknown, Unknown, MD PCP - General 01/08/19 05/30/20 Anjelica Clarke MD [address] [place] [address] [place] [address] PCP - General Internal Medicine 05/31/20 05/11/25 Roberto Carlos Hancock NP [address] [place] [address] [place] [address] PCP - General Nurse Practitioner 05/12/25 Anjelica Clarke MD [address] [place] [address] [place] [address] Internal Medicine 01/08/19 documented as of this encounter Additional Source Comments The information contained in this document represents components of the legal health record. It is not the complete legal health record.[facility]
--- OUTSIDE RECORDS SUMMARY | 2025-07-13 13:06 | XMS_ITS | Encounter Summary ---
Author Organization [facility] Address [facility] [employer] [facility] [address] [place] [address] Phone Care Team Providers Care Wheat Grower Name Role Phone Unknown, Unknown Primary Care Provider Calos Whitt MD Primary Care Provider [phone] Niels Sams MD Primary Care Provider [phone] Anjelica Clarek MD Unavailable [phone] Unknown, Unknown Primary Care Provider Anjelica Fajardo MD Primary Care Provider [phone] Roberto Carlos Hancock NP Primary Care Provider + Encounter Details Date Type Department Care Team (Latest Contact Info) Description 08/27/2017 Transcribe Orders [facility] Laboratory [address] [address] Madina Bernal PA [address] [place] [address] Abdominal pain, left lower quadrant (Primary Dx) [...] st Contact Info) Description 05/12/2025 Procedure Pass [address] [address] 12/27/2025 1:00 PM EDT Appointment [address] [address] Roberto Carlos Hancock, SIMON [address] [place] [address] [place] [address] 01/13/2026 10:30 AM EDT Office Visit [facility] [address] [facility] 12th [place] [address] Gege Cedeno MD [address] [place] [address] [email or web address] documented as of this encounter Results * Creatinine/eGFR (08/27/2017 1:29 PM EST) CREATININE 0.70 0.5 - 1.5 mg/dL [facility] EGFR >60 mL/min/1.7 3m2 [facility] Comment:Abnormal if <60. If patient is -Macedonian, multiply the result by 1.21. Blood 08/27/2017 1:29 PM EST 08/27/2017 1:32 PM EST us Madina NUR LAB BLOOD ORDERABLES Final Result [address] [address] documented in this encounter Visit Diagnoses Diagnosis Abdominal pain, left lower quadrant- Primary documented in this encounter Care Teams Wheat Grower Relationship Specialty Start Date End Date Unknown, Unknown, MD PCP - General 05/30/17 09/03/17 Calos Valiente MD [address] [place] [address] [email or web address] PCP - General Family Medicine 09/04/17 12/15/17 Niels Sams MD [address] [place] [address] [email or web address] PCP - General Family Medicine 12/16/17 01/07/19 Unknown, Nataly, PCP - General 01/08/19 05/30/20 Anjelica Clarke MD [address] [place] [address] PCP - General Internal Medicine 05/31/20 05/11/25 Roberto Carlos Hancock NP [address] [place] [address] PCP - General Nurse Practitioner 05/12/25 Anjelica Clarke MD [address] [place] [address] Internal Medicine 01/08/19 documented as of this encounter Additional Source Comments The information contained in this document represents components of the legal health record. It is not the complete legal health record.[facility]
--- OUTSIDE RECORDS SUMMARY | 2025-07-13 13:06 | XMS_ITS | Encounter Summary ---
Author Organization [facility] Address [facility] [email or web address] [facility] [address] [place] [address] Phone Care Team Providers Care Manager Plan Name Role Phone Calos Valiente MD Primary Care Provider [phone] Niels Sams MD Primary Care Provider Anjelica Clarke MD Unavailable [phone] Unknown, Unknown Primary Care Provider Anjelica Fajardo MD Primary Care Provider [phone] Roberto Carlos Hancock NP Primary Care Provider + Encounter Details Date Type Department Care Team (Late st Contact Info) Description 09/24/2017 Procedure [facility], Ct Scan - [address] [address] Social History Tobacco Use Types Packs/Day Years [...] Contact Info) Description 05/12/2025 Procedure Pass [address] [address] 12/27/2025 1:00 PM EDT Appointment [address] [address] Roberto Carlos Hancock, SIMON [address] [facility] [place] [address] 01/13/2026 10:30 AM EDT Office Visit [facility] 243 [facility] [address] [place] [address] Gege Cedeno MD [address] [place] [address] [email or web address] documented as of this encounter Visit Diagnoses Not on filedocumented in this encounter Care Teams Manager Plan Relationship Specialty Start Date End Date Calos Valiente MD [address] [place] [address] [email or web address] PCP - General Family Medicine 09/04/17 12/15/17 Niels Sams MD [address] [place] [address] [email or web address] PCP - General Family Medicine 12/16/17 01/07/19 Nataly, MD Nataly [address] [facility] [place] [address] PCP - General 01/08/19 05/30/20 Anjelica Clarke MD 1961 [facility] [place] [address] PCP - General Internal Medicine 05/31/20 05/11/25 Roberto Carlos Hancock, SIMON [address] [facility] [place] [address] PCP - General Nurse Practitioner 05/12/25 Anjelica Clarke MD [facility] [address] Internal Medicine 01/08/19 documented as of this encounter Additional Source Comments The information contained in this document represents components of the legal health record. It is not the complete legal health record.[facility]
--- OUTSIDE RECORDS SUMMARY | 2025-07-13 13:06 | XMS_ITS | Encounter Summary ---
Author Organization [facility] Address [facility] [employer] [facility] [address] [place] [address] Phone Care Team Providers Care International Relations Professor Name Role Phone Niels Sams MD Primary Care Provider [phone] Anjelica Clarke MD Unavailable [phone] Unknown, Unknown Primary Care Provider Anjelica Fajardo MD Primary Care Provider [phone] Roberto Carlos Hancock NP Primary Care Provider + Encounter Details Date Type Department Care Team (Late st Contact Info) Description 12/16/2017 Ancillary Orders [facility] External Provider Virtual Department 30 [place] [address] Calos Valiente MD [address] [place] [address] [email or web address] Social History Tobacco Use Types Packs/Day Years [...] st Contact Info) Description 05/12/2025 Procedure Pass [address] [address] 12/27/2025 1:00 PM EDT Appointment [address] [address] Roberto Carlos Hancock NP [address] [facility] [place] [address] 01/13/2026 10:30 AM EDT Office Visit [address] [address] Gege Cedeno MD [address] [place] [address] [email or web address] documented as of this encounter Visit Diagnoses Not on filedocumented in this encounter Care Teams International Relations Professor Relationship Specialty Start Date End Date Niels Sams MD [email or web address] PCP - General Family Medicine 12/16/17 01/07/19 Unknown, MD Nataly [address] [facility] [address] PCP - General 01/08/19 05/30/20 Anjelica Clarke MD [address] [place] [address] PCP - General Internal Medicine 05/31/20 05/11/25 Roberto Carlos Hancock NP [address] [facility] [address] [place] PCP - General Nurse Practitioner 05/12/25 Anjelica Clarke MD [address] [place] [address] Internal Medicine 01/08/19 documented as of this encounter Additional Source Comments The information contained in this document represents components of the legal health record. It is not the complete legal health record.[facility]
--- OUTSIDE RECORDS SUMMARY | 2025-07-13 13:06 | XMS_ITS | Encounter Summary ---
Author Organization [facility] Address [facility] [address] [place] [address] Phone Care Team Providers Care Technical Services Rep Name Role Phone Calos Valiente MD Primary Care Provider [phone] Niels Sams MD Primary Care Provider [phone] Anjelica Clarke MD Unavailable [phone] Unknown, Unknown Primary Care Provider Anjelica Fajardo MD Primary Care Provider [phone] Roberto Carlos Hancock NP Primary Care Provider + Encounter Details Date Type Department Care Team (Latest Contact Info) Description 10/02/2017 Transcribe Orders [facility] Laboratory [address] [id number] Madina Bernal PA 10 [place], [place] [phone] Abdominal pain, left lower quadrant (Primary Dx) [...] st Contact Info) Description 05/12/2025 Procedure Pass [address] [address] 12/27/2025 1:00 PM EDT Appointment [address] [address] Roberto Carlos Hancock, SIMON [facility] [address] [place] [address] 01/13/2026 10:30 AM EDT Office Visit [address] [address] Gege Cedeno MD [address] [place] [address] [email or web address] documented as of this encounter Results * C-Reactive Protein (10/02/2017 12:17 PM EST) C REACTIVE PROTEIN 0.1 0 - 0.5 mg/L [facility] Blood 10/02/2017 12:1 7 PM EST 10/02/2017 12:20 PM EST us Madina NUR LAB BLOOD ORDERABLES Final Result [address] [address] * Comprehensive metabolic panel (10/02/2017 12:17 PM EST) SODIUM 142 133 - 146 mmol/L [facility] POTASSIUM 4.5 3.3 - 5.1 mmol/L [facility] CHLORIDE 102 96 - 108 mmol/L [facility] CO2 30 21 - 35 mmol/L [facility] BUN 18 6 - 19 mg/dL [facility] CREATININE 0.60 0.5 - 1.5 mg/dL [facility] GLUCOSE 95 70 - 99 mg/dL [facility] ALBUMIN 4.5 3.9 - 4.8 g/dL [facility] TOTAL PROTEIN 7.4 6.5 - 8.0 g/dL [facility] CALCIUM 9.8 8.4 - 10.3 mg/dL [facility] ALKALINE PHOSPHATASE 63 39 - 117 U/L [facility] TOTAL BILIRUBIN 0.4 0 - 1.2 mg/dL [facility] AST 19 0 - 37 U/L [facility] ALT 10 0 - 40 U/L [facility] GLOBULIN 2.9 1 - 4.8 g/dL [facility] EGFR >60 mL/min/1.7 3m2 [facility] Comment:Abnormal if <60. If patient is -[place], multiply the result by 1.21. ANION GAP 15 10 - 20 mmol/L [facility] Blood 10/02/2017 12:1 7 PM EST 10/02/2017 12:20 PM EST us Madina NUR LAB BLOOD ORDERABLES Final Result [facility] [address] [place] [address] * CBC and differential (10/02/2017 12:17 PM EST) WBC 6.61 3.40 - 11.20 K/uL [facility] RBC 4.65 3.80 - 4.80 M/uL [facility] HGB 13.7 12.0 - 15.0 g/dL [facility] HCT 42.5 36.0 - 46.0 % [facility] PLT 268 130 - 400 K/uL [facility] MCV 91.4 79.0 - 98.0 fL [facility] MCH 29.5 27.0 - 34.8 pg [facility] MCHC 32.2 31.5 - 36.0 g/dL [facility] RDW 13.3 10.8 - 14.6 % [facility] MPV 10.4 9.4 - 12.4 fl [facility] NRBC 0.00 /100 WBCs [facility] ABSOLUTE NRBC 0.00 K/uL [facility] DIFF METHOD Auto [facility] NEUTS 56.3 45.30 - 77.70 % [facility] LYMPHS 34.5 12.30 - 39.70 % [facility] MONOS 7.1 4.10 - 12.80 % [facility] EOS 1.4 0 - 7.2 % [facility] BASOS 0.2 0 - 2.80 % [facility] Granulocytes, immature (%) 0.5 0.0 - 0.9 % [facility] ABSOLUTE NEUTS 3.73 1.40 - 7.70 K/uL [facility] ABSOLUTE LYMPHS 2.28 0.60 - 3.20 K/uL [facility] ABSOLUTE MONOS 0.47 0.11 - 0.59 K/uL [facility] ABSOLUTE EOS 0.09 0.01 - 0.50 K/uL [facility] ABSOLUTE BASOS 0.01 0.00 - 0.08 K/uL [facility] Granulocytes, immature 0.03 0.00 - 0.05 K/uL [facility] Blood 10/02/2017 12:1 7 PM EST 10/02/2017 12:20 PM EST us Madina NUR LAB BLOOD ORDERABLES Final Result Performing Organization Address City/State/[facility] Co de Phone Number [facility] [address] [place] [address] documented in this encounter Visit Diagnoses Diagnosis Abdominal pain, left lower quadrant- Primary documented in this encounter Care Teams Technical Services Rep Relationship Specialty Start Date End Date Calos Valiente MD [address] [place] [address] [email or web address] PCP - General Family Medicine 09/04/17 12/15/17 Niels Sams MD [address] [place] [address] [email or web address] PCP - General Family Medicine 12/16/17 01/07/19 Unknown, Unknown, [address] [place] [address] PCP - General 01/08/19 05/30/20 Anjelica Clarke MD [facility] [place] [address] PCP - General Internal Medicine 05/31/20 05/11/25 Roberto Carlos Hancock NP [facility] [place] [address] PCP - General Nurse Practitioner 05/12/25 Anjelica Clarke MD [facility] [place] [address] Internal Medicine 01/08/19 documented as of this encounter Additional Source Comments The information contained in this document represents components of the legal health record. It is not the complete legal health record.[facility]
--- OUTSIDE RECORDS SUMMARY | 2025-07-13 13:07 | XMS_ITS | Encounter Summary ---
Author Organization [facility] Address [address] [place] [address] Phone Care Team Providers Care Assistant Superintendent Name Role Phone Anjelica Clarke MD Unavailable [phone] Roberto Carlos Hancock NP Primary Care Provider + Encounter Details Date Type Department Care Team (Late st Contact Info) Description 05/12/2025 Transcribe Orders Virtual Department 30 [place] [address] Roberto Carlos Hancock NP [facility] [place] [address] Breast screening (Primary Dx) Social History Tobacco [...] st Contact Info) Description 05/12/2025 Procedure Pass [address] [address] 12/27/2025 1:00 PM EDT Appointment [address] [address] Roberto Carlos Hancock NP 1961 [facility] [place] [address] 01/13/2026 10:30 AM EDT Office Visit [address] 12th [place] [address] Gege Cedeno MD [address] [place] [address] [email or web address] Scheduled Orders Name Type Priority Associated Diagnoses Orde r Schedule Mammogram Screening (Bilateral) Imaging Routine Breast screening Expected: 06/12/2025, Expires: 05/12/2026 documented as of this encounter Visit Diagnoses Diagnosis Breast screening- Primary Breast screening, unspecified documented in this encounter Care Teams Assistant Superintendent Relationship Specialty Start Date End Date Roberto Carlos Hancock NP 1961 [facility] [address] PCP - General Nurse Practitioner 05/12/25 Anjelica Clarke MD 1961 [facility] [place] [address] Internal Medicine 01/08/19 documented as of this encounter Additional Source Comments The information contained in this document represents components of the legal health record. It is not the complete legal health record.[facility]
--- OUTSIDE RECORDS SUMMARY | 2025-07-13 13:07 | XMS_ITS | Encounter Summary ---
Author Organization [facility] Address [facility] [employer] [facility] [address] [place] [address] Phone Care Team Providers Care Lawn Specialist Name Role Phone Unknown, Unknown Primary Care Provider Calos Whitt MD Primary Care Provider [phone] Niels Sams MD Primary Care Provider [phone] Anjelica Clarke MD Unavailable [phone] Unknown, Unknown Primary Care Provider Anjelica Fajardo MD Primary Care Provider [phone] Roberto Carlos Hancock NP Primary Care Provider + Encounter Details Date Type Department Care Team (Late st Contact Info) Description 08/27/2017 Procedure Pass [facility], Ct Scan - [address] [address] Social History Tobacco Use Types Packs/Day Years [...] st Contact Info) Description 05/12/2025 Procedure Pass [facility], [address] [address] 12/27/2025 1:00 PM EDT Appointment [facility], [address] [address] Roberto Carlos Hancock, SIMON [address] [facility] [place] [address] 01/13/2026 10:30 AM EDT Office Visit [facility] [address] [facility] 12th [place] [address] Gege Cedeno MD [address] [place] [address] [email or web address] documented as of this encounter Visit Diagnoses Not on filedocumented in this encounter Care Teams Lawn Specialist Relationship Specialty Start Date End Date Unknown, Unknown, PCP - General 05/30/17 09/03/17 Calos Valiente MD 70 [place] [address] [email or web address] PCP - General Family Medicine 09/04/17 12/15/17 Niels Sams MD [address] [place] [address] [email or web address] PCP - General Family Medicine 12/16/17 01/07/19 Unknown, Unknown, PCP - General 01/08/19 05/30/20 Anjelica Clarke MD [address] [facility] [address] PCP - General Internal Medicine 05/31/20 05/11/25 Roberto Carlos Hancock, SIMON [address] [facility] [address] PCP - General Nurse Practitioner 05/12/25 Anjelica Clarke MD [facility] [place] [address] Internal Medicine 01/08/19 documented as of this encounter Additional Source Comments The information contained in this document represents components of the legal health record. It is not the complete legal health record.[facility]
--- OUTSIDE RECORDS SUMMARY | 2025-07-13 13:07 | XMS_ITS | Encounter Summary ---
Author Organization [facility] Address [address] [place] [address] Phone Care Team Providers Care Manager Hris Name Role Phone Anjelica Clakre MD Unavailable [phone] Anjelica Clarke MD Primary Care Provider [phone] Roberto Carlos Hancock NP Primary Care Provider + Encounter Details Date Type Department Care Team (Late st Contact Info) Description 04/13/2024 Procedure Pass [facility], [address] [phone] Social History Tobacco Use Types Packs/Day Years [...] Contact Info) Description 05/12/2025 Procedure Pass [address] [address] 12/27/2025 1:00 PM EDT Appointment [address] [address] Roberto Carlos Hancock NP [address] [facility] [place] [address] 01/13/2026 10:30 AM EDT Office Visit [address] 12th [place] [address] Gege Cedeno MD [address] [place] [address] [email or web address] documented as of this encounter Visit Diagnoses Not on filedocumented in this encounter Care Teams Manager Hris Relationship Specialty Start Date End Date Anjelica Clarke MD [address] [facility] [place] [address] PCP - General Internal Medicine 05/31/20 05/11/25 Roberto Carlos Hancock NP [address] [facility] [place] [address] PCP - General Nurse Practitioner 05/12/25 Anjelica Clarke MD [address] [facility] [place] [address] Internal Medicine 01/08/19 documented as of this encounter Additional Source Comments The information contained in this document represents components of the legal health record. It is not the complete legal health record.[facility]
--- OUTSIDE RECORDS SUMMARY | 2025-07-13 13:07 | XMS_ITS | Encounter Summary ---
Author Organization [facility] Address Pending sale to [facility] [facility] [address] [place] [address] Phone Care Team Providers Care Motor Vehicle Clerk Name Role Phone Anjelica Clarke MD Unavailable [phone] Anjelica Clarke MD Primary Care Provider [phone] Roberto Carlos Hancock NP Primary Care Provider + Encounter Details Date Type Department Care Team (Late st Contact Info) Description 04/04/[address] [facility] Department [address] [place] [address] Anjelica Clarke MD [address] [place] [address] [place] [address] Breast screening Social History Tobacco Use Types [...] st Contact Info) Description 05/12/2025 Procedure Pass [facility], [facility] 30 [place] [address] 12/27/2025 1:00 PM EDT Appointment [facility], [facility] [address] [place] [address] Roberto Carlos Hancock, SIMON 1961 [facility] [place] [address] 01/13/2026 10:30 AM EDT Office Visit [facility] [address] [facility] 12th [place] [address] Gege Cedeno MD 243 [place] [address] [email or web address] documented as of this encounter [...] unspecified documented in this encounter Care Teams Motor Vehicle Clerk Relationship Specialty Start Date End Date Anjelica Clarke MD [address] [place] [address] PCP - General Internal Medicine 05/31/20 05/11/25 Roberto Carlos Hancock NP [address] [place] [address] PCP - General Nurse Practitioner 05/12/25 Anjelica Clarke MD [address] [place] [address] Internal Medicine 01/08/19 documented as of this encounter Additional Source Comments The information contained in this document represents components of the legal health record. It is not the complete legal health record.[facility]
--- OUTSIDE RECORDS SUMMARY | 2025-07-13 13:07 | XMS_ITS | Encounter Summary ---
Author Organization [facility] Address [address] [place] [address] [place] [address] Phone Care Team Providers Care Ethics Manager Name Role Phone Calos Valiente MD Primary Care Provider [phone] Niels Sams MD Primary Care Provider [phone] Anjelica Clarke MD Unavailable [phone] Unknown, Unknown Primary Care Provider Anjelica Fajardo MD Primary Care Provider [phone] Roberto Carlos Hancock NP Primary Care Provider + Reason for Referral * MRI/CAT Scan - Closed Specialty Diagnoses / Procedures Referred By Contjulius t Referred To Contact Radiology Diagnoses Other nonspecific abnormal finding of lung field (CODE) Procedures CT Chest Calos Valiente MD Phone: tel: fax: [email or web address] Referral ID Status Reason Start Date Expiration Date Visits Re quested Visits Authorized [id number] Closed 09/24/2017 09/24/2018 1 1 Encounter Details Date Type Department Care Team (Late st Contact Info) Description 09/24/2017 Ancillary Orders [facility] Department 30 [place] [address] Calos Valiente MD [address] [place] [address] [phone] [email or web address] Other nonspecific abnormal finding of lung field [...] st Contact Info) Description 05/12/2025 Procedure Pass [address] [address] 12/27/2025 1:00 PM EDT Appointment [address] [address] Roberto Carlos Hancock, SIMON [facility] [place] [address] 01/13/2026 10:30 AM EDT Office Visit [address] [address] Gege Cedeno MD [address] [place] [address] [email or web address] documented as of this [...] (CODE) documented in this encounter Care Teams Ethics Manager Relationship Specialty Start Date End Date Calos Valiente MD [address] [place] [address] [email or web address] PCP - General Family Medicine 09/04/17 12/15/17 Niels Sams MD [address] [place] [address] [email or web address] PCP - General Family Medicine 12/16/17 01/07/19 Unknown, MD Nataly [address] [place] [address] [place] [address] PCP - General 01/08/19 05/30/20 Anjelica Clarke MD [address] [place] [address] [place] [address] PCP - General Internal Medicine 05/31/20 05/11/25 Roberto Carlos Hancock NP [address] [place] [address] [place] [address] PCP - General Nurse Practitioner 05/12/25 Anjelica Clarke MD [address] [place] [address] [place] [address] Internal Medicine 01/08/19 documented as of this encounter Additional Source Comments The information contained in this document represents components of the legal health record. It is not the complete legal health record.[facility]
--- OUTSIDE RECORDS SUMMARY | 2025-07-13 13:07 | XMS_ITS | Encounter Summary ---
Author Organization [facility] Address [facility] [place] [address] [place] [address] Phone Care Team Providers Care Web Worker Name Role Phone Anjelica Clarke MD Unavailable [phone] Anjelica Clarke MD Primary Care Provider Roberto Carlos Hancock NP Primary Care Provider + Encounter Details Date Type Department Care Team (Late st Contact Info) Description 03/23/2022 Procedure Pass [address] [address] Social History Tobacco Use Types Packs/Day Years [...] Contact Info) Description 05/12/2025 Procedure Pass [address] [address] 12/27/2025 1:00 PM EDT Appointment [address] [address] Roberto Carlos Hancock NP [address] [place] [address] 01/13/2026 10:30 AM EDT Office Visit [facility] [address] 12th [place] [address] Gege Cedeno MD [address] [place] [address] [email or web address] documented as of this encounter Visit Diagnoses Not on filedocumented in this encounter Care Teams Web Worker Relationship Specialty Start Date End Date Anjelica Clarke MD [address] [place] [address] [place] [address] PCP - General Internal Medicine 05/31/20 05/11/25 Roberto Carlos Hancock NP [address] [place] [address] [place] [address] PCP - General Nurse Practitioner 05/12/25 Anjelica Clarke MD [address] [place] [address] [place] [address] Internal Medicine 01/08/19 documented as of this encounter Additional Source Comments The information contained in this document represents components of the legal health record. It is not the complete legal health record.[facility]
--- OUTSIDE RECORDS SUMMARY | 2025-07-13 13:07 | XMS_ITS | Encounter Summary ---
Author Organization [facility] Address [facility] [place] [address] [address] Phone Care Team Providers Care Supervisor Garment Manufacturing Name Role Phone Niels Sams MD Primary Care Provider [phone] Anjelica Clarke MD Unavailable [phone] Unknown, Unknown Primary Care Provider Anjelica Fajardo MD Primary Care Provider [phone] Roberto Carlos Hancock NP Primary Care Provider + Encounter Details Date Type Department Care Team (Late st Contact Info) Description 12/16/2017 Ancillary Orders [facility] External Provider Virtual Department [address] [place] [address] Niels Sams MD [address] [place] [address] [email or web address] Breast screening Social History Tobacco Use Types [...] Contact Info) Description 05/12/2025 Procedure Pass [address] [address] 12/27/2025 1:00 PM EDT Appointment [address] [address] Roberto Carlos Hancock, SIMON [facility] [place] [address] 01/13/2026 10:30 AM EDT Office Visit [facility] [address] [address] Gege Cedeno MD [address] [place] [address] [email or web address] documented as of this encounter Results * [...] lowers the sensitivity of mammography. POS - [id number] Narrative 01/27/2018 12:49 PM EDT Full-field digital [...] whichlowers the sensitivity of mammography. POS - [id number] Niels Sams MD IMG MG EXAMS Final Result documented in this encounter Visit Diagnoses Diagnosis Breast screening Breast screening, unspecified Breast screening Breast screening, unspecified documented in this encounter Care Teams Supervisor Garment Manufacturing Relationship Specialty Start Date End Date Niels Sams MD PCP - General Family Medicine 12/16/17 01/07/19 Unknown, Nataly, [address] [facility] [place] [address] PCP - General 01/08/19 05/30/20 Anjelica Clarke MD [address] [facility] [place] [address] PCP - General Internal Medicine 05/31/20 05/11/25 Roberto Carlos Hancock NP [address] [facility] [place] [address] PCP - General Nurse Practitioner 05/12/25 Anjelica Clarke MD [facility] [place] [address] Internal Medicine 01/08/19 documented as of this encounter Additional Source Comments The information contained in this document represents components of the legal health record. It is not the complete legal health record.[facility]
--- OUTSIDE RECORDS SUMMARY | 2025-07-13 13:07 | XMS_ITS | Patient Health Record ---
Author Organization [facility] Address [address] [place] [address] Care Team Providers Care Watch And Clock Maker And Repairer Name Role Phone Anjelica Clarke MD Primary Care Provider Frank Mccoy Unavailable [phone] Allergies Allergen (clinical drug ingredient) Drug/Non Drug [...] Status Risk Notes Problem Irritable bowel syndrome (19756990) Irritable bowel syndrome (K58.9) Active confirmed Problem Gastroesophageal reflux disease (121282074) Gastroesophageal reflux disease, esophagitis presence not specified (K21.9) Active confirmed Problem Hiatal hernia (23194937) Hiatal hernia (K44.9) Active confirmed Problem Constipation (88389261) Constipation, unspecified constipation type (K59.00) Active confirmed Problem Gastroesophageal reflux disease (284054458) GERD (gastroesophageal reflux disease) (K21.9) Active confirmed Problem Abnormal findings diagnostic imaging of liver and biliary tract (048261387) Abnormal gallbladder ultrasound (R93.2) Active confirmed Problem Left lower quadrant pain (024574624) Left lower quadrant abdominal pain (R10.32) Active confirmed Encounters Encounter Location Date Provider Diagnosis [facility] [address] [place] [address] 01/12/2025 Frank Avila Plan Of Treatment Future Test Test Name Order Date UPPER GI ENDOSCOPY 04/26/2020 Insurance Providers Payer Name Payer Address Payer Phone Subscriber Number Group Number Insured Name Patient Relationship to Insured Coverage Start Date Coverage End Date MEDICARE OF [place] [address] [place] [address] [id number] ROCIO HENSON Self - patient is the insured [facility] SUPPLEMENTAL PLAN [address] [place] [address] [phone] [id number] ROCIO HENSON Self - patient is the insured Medical (General) History Medical History History ICD Code Denies SD,DM,CVA,Lung disease,renal dise ase She reports three previous c olonoscopies with the [facility]'s--she reports a hx of colon [...] any sign of malignancy Partial thyroidectomy at [facility] in 2021 for benign lesion
--- OUTSIDE RECORDS SUMMARY | 2025-07-13 13:07 | XMS_ITS | Encounter Summary ---
Author Organization [facility] Address [facility] [address] [place] [address] Phone Care Team Providers Care Special Education Tutor Name Role Phone Niels Sams MD Primary Care Provider [phone] Anjelica Clarke MD Unavailable [phone] Unknown, Unknown Primary Care Provider Anjelica Fajardo MD Primary Care Provider [phone] Roberto Carlos Hancock NP Primary Care Provider + Encounter Details Date Type Department Care Team (Latest Contact Info) Description 12/18/2017 Transcribe Orders [facility] Laboratory [address] 2[address] [place] [address] Tru Roberts MD 10 [facility] 2 [place] [address] Abdominal pain, left lower quadrant (Primary Dx); [...] Contact Info) Description 05/12/2025 Procedure Pass [address] [address] 12/27/2025 1:00 PM EDT Appointment [address] [address] Roberto Carlos Hancock, SIMON [facility] [place] [address] 01/13/2026 10:30 AM EDT Office Visit [address] [place] [address] Gege Cedeno MD [address] [place] [address] [email or web address] documented as of this encounter Results * Immunoglobulin A (12/18/2017 11:36 AM EDT) IgA 376 70 - 400 mg/dL [facility] Blood 12/18/2017 11:3 6 AM EDT 12/18/2017 11:42 AM EDT us Tru Roberts MD LAB BLOOD ORDERABLES Final R esult [address] [address] * LFTs (hepatic panel) (12/18/2017 11:36 AM EDT) ALKALINE PHOSPHATASE 60 39 - 117 U/L [facility] TOTAL BILIRUBIN 0.4 0.0 - 1.2 mg/dL [facility] DIRECT BILIRUBIN <0.2 0 - 0.3 mg/dL [facility] Bilirubin (Indirect) NOT CALCULATED 0 - 1.5 mg/dL [facility] AST 17 0 - 37 U/L [facility] ALT 11 0 - 40 U/L [facility] TOTAL PROTEIN 6.9 6.5 - 8.0 g/dL [facility] ALBUMIN 4.1 3.9 - 4.8 g/dL [facility] GLOBULIN 2.8 1 - 4.8 g/dL [facility] A/G Ratio 1.46 1.00 - 4.80 RATIO [facility] Blood 12/18/2017 11:3 6 AM EDT 12/18/2017 11:42 AM EDT Tru Roberts MD LAB BLOOD ORDERABLES Final R esult [address] [address] * C-Reactive Protein (12/18/2017 11:36 AM EDT) C REACTIVE PROTEIN 0.1 0 - 0.5 mg/L [facility] Blood 12/18/2017 11:3 6 AM EDT 12/18/2017 11:42 AM EDT Tru Roberts MD LAB BLOOD ORDERABLES Final R esult Performing Organization Address City/[facility]/ZIP Co de Phone Number [address] [address] * Tissue transglutaminase IgA (12/18/2017 11:36 AM EDT) TTG IGA ANTIBODY <1.2 <4.0 (Negative) U/mL [facility] DPT OF LAB MED AND PAT+ Blood 12/18/2017 11:3 6 AM EDT 12/18/2017 11:41 AM EDT us Tru Roberts MD LAB BLOOD ORDERABLES Final R esult [facility] DPT OF LAB MED AND PAT+ [address] [facility] [facility] [place] [place] [address] * CBC and differential (12/18/2017 11:36 AM EDT) WBC 5.80 3.40 - 11.20 K/uL [facility] RBC 4.48 3.80 - 4.80 M/uL [facility] HGB 13.2 12.0 - 15.0 g/dL [facility] HCT 40.5 36.0 - 46.0 % [facility] PLT 249 130 - 400 K/uL [facility] MCV 90.4 79.0 - 98.0 fL [facility] MCH 29.5 27.0 - 34.8 pg [facility] MCHC 32.6 31.5 - 36.0 g/dL [facility] RDW 13.2 10.8 - 14.6 % [facility] MPV 10.4 9.4 - 12.4 fl [facility] NRBC 0.00 /100 WBCs [facility] ABSOLUTE NRBC 0.00 K/uL [facility] DIFF METHOD Auto [facility] NEUTS 54.6 45.30 - 77.70 % [facility] LYMPHS 35.9 12.30 - 39.70 % [facility] MONOS 6.9 4.10 - 12.80 % [facility] EOS 2.1 0 - 7.2 % [facility] BASOS 0.3 0 - 2.80 % [facility] Granulocytes, immature (%) 0.2 0.0 - 0.9 % [facility] ABSOLUTE NEUTS 3.17 1.40 - 7.70 K/uL [facility] ABSOLUTE LYMPHS 2.08 0.60 - 3.20 K/uL [facility] ABSOLUTE MONOS 0.40 0.11 - 0.59 K/uL [facility] ABSOLUTE EOS 0.12 0.01 - 0.50 K/uL [facility] ABSOLUTE BASOS 0.02 0.00 - 0.08 K/uL [facility] Granulocytes, immature 0.01 0.00 - 0.05 K/uL [facility] Blood 12/18/2017 11:3 6 AM EDT 12/18/2017 11:42 AM EDT us Tru Roberts MD LAB BLOOD ORDERABLES Final R esult [address] [address] documented in this encounter Visit Diagnoses Diagnosis Abdominal pain, left lower quadrant- Primary Abdominal distention Flatulence, eructation, and gas pain 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 documented in this encounter Care Teams Special Education Tutor Relationship Specialty Start Date End Date Niels Sams MD [email or web address] PCP - General Family Medicine 12/16/17 01/07/19 Unknown, Nataly, [address] [place] [address] PCP - General 01/08/19 05/30/20 Anjelica Clarke MD [address] [place] [address] PCP - General Internal Medicine 05/31/20 05/11/25 Roberto Carlos Hancock NP [address] [place] [address] PCP - General Nurse Practitioner 05/12/25 Anjelica Clarke MD [address] [place] [address] Internal Medicine 01/08/19 documented as of this encounter Additional Source Comments The information contained in this document represents components of the legal health record. It is not the complete legal health record.[facility]
--- OUTSIDE RECORDS SUMMARY | 2025-07-13 13:07 | XMS_ITS | Encounter Summary ---
Author Organization [facility] Address [facility] [employer] [facility] [address] [place] [address] Phone Care Team Providers Care Overlock Sleeve Setter Name Role Phone Calos Valiente MD Primary Care Provider [phone] Niels Sams MD Primary Care Provider [phone] Anjelica Clarke MD Unavailable [phone] Unknown, Unknown Primary Care Provider Anjelica Fajardo MD Primary Care Provider [phone] Roberto Carlos Hancock NP Primary Care Provider + Encounter Details Date Type Department Care Team (Late st Contact Info) Description 09/08/2017 Prep for Surgery [address] [address] Agnieszka Shen MD [address] [place] [address] [email or web address] Combined form of senile cataract of right [...] st Contact Info) Description 05/12/2025 Procedure Pass [address] [address] 12/27/2025 1:00 PM EDT Appointment [address] [address] Roberto Carlos Hancock NP [address] 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 [address] [place] PCP - General 01/08/19 05/30/20 Anjelica Clarke MD [address] [facility] [address] [place] PCP - General Internal Medicine 05/31/20 05/11/25 Roberto Carlos Hancock NP [address] [facility] [place] [address] PCP - General Nurse Practitioner 05/12/25 Anjelica Clarke MD [address] [facility] [place] [address] Internal Medicine 01/08/19 documented as of this encounter Additional Source Comments The information contained in this document represents components of the legal health record. It is not the complete legal health record.[facility]
--- OUTSIDE RECORDS SUMMARY | 2025-07-13 13:07 | XMS_ITS | Encounter Summary ---
Author Organization [facility] Address [address] [facility] [address] [place] [address] Phone Care Team Providers Care Lease Administrator Name Role Phone Anjelica Clrake MD Unavailable [phone] Anjelica Clarke MD Primary Care Provider [phone] Roberto Carlos Hancock NP Primary Care Provider + Encounter Details Date Type Department Care Team (Late st Contact Info) Description 04/03/[address] [facility] [address] [place] [address] Gege Cedeno MD [address] [place] [address] [email or web address] Social History Tobacco Use Types [...] st Contact Info) Description 05/12/2025 Procedure Pass [address] [address] 12/27/2025 1:00 PM EDT Appointment [address] [address] Roberto Carlos Hancock NP [address] [facility] [place] [address] 01/13/2026 10:30 AM EDT Office Visit [facility] [address] [place] [address] Gege Cedeno MD [address] [place] [address] [email or web address] documented as of this encounter Visit Diagnoses Not on filedocumented in this encounter Care Teams Lease Administrator Relationship Specialty Start Date End Date Anjelica Clarke MD [address] [facility] [place] [address] PCP - General Internal Medicine 05/31/20 05/11/25 Roberto Carlos Hancock NP [address] [facility] [place] [address] PCP - General Nurse Practitioner 05/12/25 Anjelica Clarke MD [address] [facility] [place] [address] Internal Medicine 01/08/19 documented as of this encounter Additional Source Comments The information contained in this document represents components of the legal health record. It is not the complete legal health record.[facility]
--- OUTSIDE RECORDS SUMMARY | 2025-07-13 13:07 | XMS_ITS | Encounter Summary ---
Author Organization [facility] Address [facility] [employer] [facility] [address] [place] [address] Phone Care Team Providers Care Process Area Supervisor Name Role Phone Calos Valiente MD Primary Care Provider [phone] Niels Sams MD Primary Care Provider [phone] Anjelica Clarke MD Unavailable [phone] Unknown, Unknown Primary Care Provider Anjelica Fajardo MD Primary Care Provider [phone] Roberto Carlos Hancock NP Primary Care Provider + Encounter Details Date Type Department Care Team (Late st Contact Info) Description 09/12/2017 Procedure Pass [facility] PERIOP DEPT [address] [place] [address] Social History Tobacco Use Types Packs/Day Years [...] Contact Info) Description 05/12/2025 Procedure Pass [address] [address] 12/27/2025 1:00 PM EDT Appointment [address] [address] Roberto Carlos Hancock NP [address] [facility] [place] [address] 01/13/2026 10:30 AM EDT Office Visit [facility] 243 [facility] [address] [place] [address] Gege Cedeno MD [address] [place] [address] [email or web address] documented as of this encounter Visit Diagnoses Not on filedocumented in this encounter Care Teams Process Area Supervisor Relationship Specialty Start Date End Date Calos Valiente MD [address] [place] [address] [email or web address] PCP - General Family Medicine 09/04/17 12/15/17 Niels Sams MD [address] [place] [address] [email or web address] PCP - General Family Medicine 12/16/17 01/07/19 Unknown, MD Nataly [address] [place] [address] PCP - General 01/08/19 05/30/20 Anjelica Clarke MD [address] [facility] [place] [address] PCP - General Internal Medicine 05/31/20 05/11/25 Roberto Carlos Hancock NP [address] [facility] [place] [address] PCP - General Nurse Practitioner 05/12/25 Anjelica Clarke MD [facility] [place] [address] Internal Medicine 01/08/19 documented as of this encounter Additional Source Comments The information contained in this document represents components of the legal health record. It is not the complete legal health record.[facility]
--- OUTSIDE RECORDS SUMMARY | 2025-07-13 13:08 | XMS_ITS | Encounter Summary ---
Author Organization [facility] Address [address] [place] [address] Phone Care Team Providers Care Certified Marine Mechanic Name Role Phone Anjelica Clarke MD Unavailable [phone] Anjelica Clarke MD Primary Care Provider [phone] Roberto Carlos Hancock NP Primary Care Provider + Encounter Details Date Type Department Care Team (Late st Contact Info) Description 04/05/[address] [facility], [address] [phone] Social History Tobacco Use Types Packs/Day Years [...] st Contact Info) Description 05/12/2025 Procedure Pass [address] [address] 12/27/2025 1:00 PM EDT Appointment [address] [address] Roberto Carlos Hancock NP [address] [facility] [place] [address] 01/13/2026 10:30 AM EDT Office Visit [address] 12th [place] [address] Gege Cedeno MD [address] [place] [address] [email or web address] documented as of this encounter Visit Diagnoses Not on filedocumented in this encounter Care Teams Certified Marine Mechanic Relationship Specialty Start Date End Date Anjelica Clarke MD [address] [facility] [place] [address] PCP - General Internal Medicine 05/31/20 05/11/25 Roberto Carlos Hancock NP [address] [facility] [place] [address] PCP - General Nurse Practitioner 05/12/25 Anjelica Clarke MD [address] [facility] [place] [address] Internal Medicine 01/08/19 documented as of this encounter Additional Source Comments The information contained in this document represents components of the legal health record. It is not the complete legal health record.[facility]
--- OUTSIDE RECORDS SUMMARY | 2025-07-13 13:08 | XMS_ITS | Encounter Summary ---
Author Organization [facility] Address [facility] [employer] [facility] [address] [place] [address] Phone Care Team Providers Care Instructional Resource Teacher Name Role Phone Anjelica Clarke MD Unavailable [phone] Anjelica Clarke MD Primary Care Provider [phone] Roberto Carlos Hancock NP Primary Care Provider + Encounter Details Date Type Department Care Team (Late st Contact Info) Description 03/23/2022 Transcribe Orders Virtual Department [address] [place] [address] Anjelica Clarke MD [address] [place] [address] Dr [place] [address] Encounter for screening mammogram for malignant neoplasm [...] st Contact Info) Description 05/12/2025 Procedure Pass [address] [address] 12/27/2025 1:00 PM EDT Appointment [address] [address] Roberto Carlos Hancock NP [address] [place] [address] 01/13/2026 10:30 AM EDT Office Visit [facility] 243 [facility] 12th [place] [address] Gege Cedeno MD [address] [place] [address] [email or web address] documented as of this encounter [...] breast documented in this encounter Care Teams Instructional Resource Teacher Relationship Specialty Start Date End Date Anjelica Clarke MD [address] [place] [address] PCP - General Internal Medicine 05/31/20 05/11/25 Roberto Carlos Hancock NP [address] [place] [address] PCP - General Nurse Practitioner 05/12/25 Anjelica Clarke MD [address] [place] [address] Internal Medicine 01/08/19 documented as of this encounter Additional Source Comments The information contained in this document represents components of the legal health record. It is not the complete legal health record.[facility]
--- OUTSIDE RECORDS SUMMARY | 2025-07-13 13:08 | XMS_ITS | Encounter Summary ---
Author Organization [facility] Address [facility] [employer] [address] [address] Phone Care Team Providers Care Supply Crib Attendant Name Role Phone Niels Sams MD Primary Care Provider [phone] Anjelica Clarke MD Unavailable [phone] Unknown, Unknown Primary Care Provider Anjelica Fajardo MD Primary Care Provider [phone] Roberto Carlos Hancock NP Primary Care Provider + Encounter Details Date Type Department Care Team (Late Contact Info) Description 11/21/2018 Ancillary Orders Virtual Department 30 [place] [address] Niels Sams MD [address] [place] [address] Breast screening Social History Tobacco Use Types [...] Contact Info) Description 05/12/2025 Procedure Pass [address] [address] 12/27/2025 1:00 PM EDT Appointment [address] [address] Roberto Carlos Hancock, SIMON [address] [facility] [place] [address] 01/13/2026 10:30 AM EDT Office Visit [address] [address] Gege Cedeno MD [address] [place] [address] [email or web address] documented as of [...] There are scattered fibroglandular densities. POS - [id number] Narrative 01/28/2019 6:46 PM EDT FINDINGS: Bilateral [...] There are scattered fibroglandular densities. POS - [id number] Niels Sams MD IMG MG EXAMS Final Result documented in this encounter Visit Diagnoses Diagnosis Breast screening Breast screening, unspecified Breast screening Breast screening, unspecified documented in this encounter Care Teams Supply Crib Attendant Relationship Specialty Start Date End Date Niels Sams MD [email or web address] PCP - General Family Medicine 12/16/17 01/07/19 Unknown, Nataly, [address] [facility] [address] PCP - General 01/08/19 05/30/20 Anjelica Clarke MD [address] [facility] [address] PCP - General Internal Medicine 05/31/20 05/11/25 Roberto Carlos Hancock NP [address] [facility] [address] PCP - General Nurse Practitioner 05/12/25 Anjelica Clarke MD [facility] [address] [place], [place] [address] Internal Medicine 01/08/19 documented as of this encounter Additional Source Comments The information contained in this document represents components of the legal health record. It is not the complete legal health record.[facility]
--- OUTSIDE RECORDS SUMMARY | 2025-07-13 13:08 | XMS_ITS | Clinical Summary ---
Author Organization [facility] Address [facility] [address] [place] [address] Phone Care Team Providers Care Clinching Machine Operator Name Role Phone Anjelica Clarke MD Unavailable [phone] Roberto Carlos Hancock NP Primary Care Provider + Allergies Active Allergy Reactions Criticality Noted Date Comments Sulfa (Sulfonamide Antibiotics) GI Upset Medium 10/2014 Medications calcium acetate (PHOSLO) 667 mg (169 mg elemental) capsule CALCIUM ACETATE ( 1 IUSNAE=959 MG) ; Dose: Not available; Form: Not available; Route: PO; Frequency: Not available; Directions: As directed; Details: Dispense: Capsule(s); Taking; Status: Active; Source: KERRY LOPEZ M.D.; Date: 03/24/2015 5 Active Ca cmb no.2-[id number]- [id number] 120-1,000-10 mg-unit-mg Tab VITAMIN D3 (CHOLECALCIFEROL ); [...] Department Care Team Description 05/12/2025 Transcribe Orders [facility] Department [address] [place] [address] Roberto Carlos Hancock NP Breast screening (Primary [...] Contact Info) Description 05/12/2025 Procedure Pass [address] [address] 12/27/2025 1:00 PM EDT Appointment [address] [address] Roberto Carlos Hancock NP 1961 [facility] [place] [address] 01/13/2026 10:30 AM EDT Office Visit [facility] [address] [facility] 12th [place] [address] Simone Cedeno MD [address] [place] [address] [email or web address] Health Maintenance Due Date Last [...] this topic Medical Devices Implanted Type Area Pantry Goods Worker Device Identifier Shelf Expiration Date Model / Serial / Lot Metal Description:Metal rings R. e ye and R. hip Iol Acrysof Iq [id number] 20.5d - [id number] Implanted:Qty: 1 on 09/12/2017 by Agnieszka Shen MD at [facility] Right: Eye JOHN PAUL 07/23/2021 / [id number] / Procedures Procedure Name Priority Date/Time Associated Diagnosis Comments COMPREHENSIVE METABOLIC PANEL Routine 10/02/2017 12:17 PM EST Abdominal pain, left lower quadrant from Last 3 Months or Most Recently Relevant to Health Maintenance Results * Comprehensive metabolic panel (10/02/2017 12:17 PM EST) SODIUM 142 133 - 146 mmol/L [facility] POTASSIUM 4.5 3.3 - 5.1 mmol/L [facility] CHLORIDE 102 96 - 108 mmol/L [facility] CO2 30 21 - 35 mmol/L [facility] BUN 18 6 - 19 mg/dL [facility] CREATININE 0.60 0.5 - 1.5 mg/dL [facility] GLUCOSE 95 70 - 99 mg/dL [facility] ALBUMIN 4.5 3.9 - 4.8 g/dL [facility] TOTAL PROTEIN 7.4 6.5 - 8.0 g/dL [facility] CALCIUM 9.8 8.4 - 10.3 mg/dL [facility] ALKALINE PHOSPHATASE 63 39 - 117 U/L [facility] TOTAL BILIRUBIN 0.4 0 - 1.2 mg/dL [facility] AST 19 0 - 37 U/L [facility] ALT 10 0 - 40 U/L [facility] GLOBULIN 2.9 1 - 4.8 g/dL [facility] EGFR >60 mL/min/1.7 3m2 [facility] Comment:Abnormal if <60. If patient is -[place], multiply the result by 1.21. ANION GAP 15 10 - 20 mmol/L [facility] Blood 10/02/2017 12:1 7 PM EST 10/02/2017 12:20 PM EST us Madina NUR LAB BLOOD ORDERABLES Final Result Performing Organization Address City/State/[facility] Co de Phone Number [facility] [address] [place] [address] from Last 3 Months or Most Recently Relevant to Health Maintenance Insurance MEDICARE PART A & B MEDICARE SUPPLEMENT MEDICARE PART A & B MEDICARE SUPPLEMENT MEDICARE PART A & B [id number] [place] [address] MEDICARE SUPPLEMENT MEDICARE PART A & B [facility] MEDICARE SUPPLEMENT MEDICARE PART A & B Member Subscriber Plan / Payer (Ef fective 2006-Present) Name:Irene Proter Member ID:[id number] Relation to Subscriber:Self Name:Irene Porter Subscriber ID:[id number] Payer ID:[id number] Group ID:Not on file Type:Medicare Address: [employer] [address] MEDICARE SUPPLEMENT MEDICARE PART A & B Member Subscriber Plan / Payer (Ef fective 2006-Present) Name:Irene Porter Member ID:[id number] Relation to Subscriber:Self Name:Irene Porter Subscriber ID:[id number] Payer ID:[id number] Group ID:Not on file Type:Medicare Address: [employer] [address] MEDICARE SUPPLEMENT MED[place] PART [place] [id number] [facility] MEDICARE SUPPLEMENT MEDICARE PART A & B [facility] [place] [phone] MEDICARE PART A & B [facility] MEDICARE SUPPLEMENT Advance Directives For more information, please contact: [phone] (9AM - 5PM [place], Saturday-Saturday) Documents on File Type Date Recorded Patient Agricultural Education Teacher [employer] [facility] Proxy 09/13/2017 11:05 AM * Full Code (Presumed) (Latest Code Status on File) Date Activated Date Inactivated Comments 09/12/2017 10:13 AM 09/12/2017 2:23 PM Care Teams Clinching Machine Operator Relationship Specialty Start Date End Date Roberto Carlos Hancock NP 1960 [facility] [place] [address] PCP - General Nurse Practitioner 05/12/25 Anjelica Clarke MD 1960 [facility] [place] [address] Internal Medicine 01/08/19 Additional Source Comments The information contained in this document represents components of the legal health record. It is not the complete legal health record.[facility]
--- OUTSIDE RECORDS SUMMARY | 2025-07-13 13:08 | XMS_ITS | Encounter Summary ---
Author Organization [facility] Address [facility] [address] [place] [address] Phone Care Team Providers Care Account Development Executive Name Role Phone Anjelica Clarke MD Unavailable [phone] Anjelica Clarke MD Primary Care Provider [phone] Roberto Carlos Hancock NP Primary Care Provider + Encounter Details Date Type Department Care Team (Late st Contact Info) Description 04/04/2021 Procedure Pass [address] [address] Social History Tobacco Use Types Packs/Day Years [...] st Contact Info) Description 05/12/2025 Procedure Pass [address] [address] 12/27/2025 1:00 PM EDT Appointment [address] [address] Roberto Carlos Hancock NP [address] [place] [address] 01/13/2026 10:30 AM EDT Office Visit [facility] [address] 12th [place] [address] Gege Cedeno MD [address] [place] [address] [email or web address] documented as of this encounter Visit Diagnoses Not on filedocumented in this encounter Care Teams Account Development Executive Relationship Specialty Start Date End Date Anjelica Clarke MD [address] [place] [address] [place] [address] PCP - General Internal Medicine 05/31/20 05/11/25 Roberto Carlos Hancock NP [address] [place] [address] [place] [address] PCP - General Nurse Practitioner 05/12/25 Anjelica Clarke MD [address] [place] [address] [place] [address] Internal Medicine 01/08/19 documented as of this encounter Additional Source Comments The information contained in this document represents components of the legal health record. It is not the complete legal health record.[facility]
--- OUTSIDE RECORDS SUMMARY | 2025-07-13 13:08 | XMS_ITS | Encounter Summary ---
Author Organization [facility] Address [facility] [employer] [facility] [address] [place] [address] Phone Care Team Providers Care Varnish Remover Name Role Phone Anjelica Clarke MD Unavailable [phone] Anjelica Clarke MD Primary Care Provider [phone] Roberto Carlos Hancock NP Primary Care Provider + Encounter Details Date Type Department Care Team (Late st Contact Info) Description 06/01/2020 Procedure Pass [address] [address] Social History Tobacco Use Types Packs/Day Years [...] st Contact Info) Description 05/12/2025 Procedure Pass [address] [address] 12/27/2025 1:00 PM EDT Appointment [address] [address] Roberto Carlos Hancock NP 1960 [facility] [place] [address] 01/13/2026 10:30 AM EDT Office Visit [facility] [address] 12th [place] [address] Gege Cedeno MD [address] [place] [address] [email or web address] documented as of this encounter Visit Diagnoses Not on filedocumented in this encounter Care Teams Varnish Remover Relationship Specialty Start Date End Date Anjelica Clarke MD [address] [place] [address] [place] [address] PCP - General Internal Medicine 05/31/20 05/11/25 Roberto Carlos Hancock NP [address] [place] [address] [place] [address] PCP - General Nurse Practitioner 05/12/25 Anjelica Clarke MD [address] [place] [address] [place] [address] Internal Medicine 01/08/19 documented as of this encounter Additional Source Comments The information contained in this document represents components of the legal health record. It is not the complete legal health record.[facility]
--- OUTSIDE RECORDS SUMMARY | 2025-07-13 13:08 | XMS_ITS | Encounter Summary ---
Author Organization [facility] Address [facility] [employer] [facility] [address] [place] [address] Phone Care Team Providers Care Dryer Operator Name Role Phone Anjelica Clarke MD Unavailable [phone] Unknown, Unknown Primary Care Provider Anjelica Fajardo MD Primary Care Provider [phone] Roberto Carlos Hancock NP Primary Care Provider + Encounter Details Date Type Department Care Team (Late st Contact Info) Description 05/24/2020 Procedure Pass [address] [address] Social History Tobacco Use Types Packs/Day Years [...] st Contact Info) Description 05/12/2025 Procedure Pass [address] [address] 12/27/2025 1:00 PM EDT Appointment [facility] [address] [place] [address] Roberto Carlos Hancock NP 1960 [facility] [place] [address] 01/13/2026 10:30 AM EDT Office Visit [facility] [address] [facility] 12th [place] [address] Gege Cedeno MD [address] [place] [address] [email or web address] documented as of this encounter Visit Diagnoses Not on filedocumented in this encounter Care Teams Dryer Operator Relationship Specialty Start Date End Date Unknown, Unknown, MD 1960 [facility] [place] [address] PCP - General 01/08/19 05/30/20 Anjelica Clarke MD 1960 [facility] [place] [address] PCP - General Internal Medicine 05/31/20 05/11/25 Roberto Carlos Hancock NP 1960 [facility] [place] [address] PCP - General Nurse Practitioner 05/12/25 Anjelica Clarke MD [facility] [place] [address] Internal Medicine 01/08/19 documented as of this encounter Additional Source Comments The information contained in this document represents components of the legal health record. It is not the complete legal health record.[facility]
--- OUTSIDE RECORDS SUMMARY | 2025-07-13 13:08 | XMS_ITS | Encounter Summary ---
Author Organization [facility] Address [facility] [employer] [address] [place] [address] Phone Care Team Providers Care Termite Treater Name Role Phone Anjelica Clarke MD Unavailable [phone] Unknown, Unknown Primary Care Provider Anjelica Fajardo MD Primary Care Provider Roberto Carlos Hancock NP Primary Care Provider + Encounter Details Date Type Department Care Team (Late st Contact Info) Description 11/06/2019 Ancillary Orders Virtual Department [address] [place] [address] Anjelica Clarke MD [address] [place] [address] [place] [address] Breast screening Social History Tobacco Use Types [...] Contact Info) Description 05/12/2025 Procedure Pass [facility] [address] [address] 12/27/2025 1:00 PM EDT Appointment [address] [address] Roberto Carlos Hancock NP [address] [facility] [place] [address] 01/13/2026 10:30 AM EDT Office Visit [facility] [address] [facility] 12th [place] [address] Gege Cedeno MD [address] [place] [address] [email or web address] documented as of this encounter Results [...] unspecified documented in this encounter Care Teams Termite Treater Relationship Specialty Start Date End Date Unknown, Unknown, MD [address] [facility] [place] [address] PCP - General 01/08/19 05/30/20 Anjelica Clarke MD [address] [facility] [place] [address] PCP - General Internal Medicine 05/31/20 05/11/25 Roberto Carlos Hancock NP [address] [facility] [place] [address] PCP - General Nurse Practitioner 05/12/25 Anjelica Clarke MD [address] [facility] [place] [address] Internal Medicine 01/08/19 documented as of this encounter Additional Source Comments The information contained in this document represents components of the legal health record. It is not the complete legal health record.[facility]
--- OUTSIDE RECORDS SUMMARY | 2025-07-13 13:08 | XMS_ITS | Encounter Summary ---
Author Organization [facility] Address [facility] [employer] [facility] [address] [place] [address] Phone Care Team Providers Care Family Dinner Service Specialist Name Role Phone Anjelica Clarke MD Unavailable [phone] Anjelica Clarke MD Primary Care Provider [phone] Roberto Carlos Hancock NP Primary Care Provider + Encounter Details Date Type Department Care Team (Late st Contact Info) Description 06/01/2020 Ancillary Orders [facility] Department [address] [place] [address] Anjelica Clarke MD [address] [place] [address] Kevin SONU [address] Abnormal mammogram Social History Tobacco Use Types [...] st Contact Info) Description 05/12/2025 Procedure Pass [facility] [address] [place] [address] 12/27/2025 1:00 PM EDT Appointment [facility] [address] [place] [address] Roberto Carlos Hancock, SIMON [facility] [place] [address] 01/13/2026 10:30 AM EDT Office Visit [facility] [address] [facility] 12th [place] [address] Gege Cedeno MD [address] [place] [address] [email or web address] documented as of this encounter Results * BI US BREAST LIMITED (RIGHT) (06/29/2020 1:58 PM EDT) Anatomical Region Laterality Modality Breast Right, Breast Bilateral Right U ltrasound 06/29/2020 1:53 PM EDT Narrative 06/29/2020 1:58 PM EDT Refer to the mammogram report. Procedure Note Danisha Desai MD - 06/29/2020 Refer to the mammogram report. Anjelica Clarke MD [facility] US BREAST Final Result * BI MAMMOGRAM [...] unspecified documented in this encounter Care Teams Family Dinner Service Specialist Relationship Specialty Start Date End Date Anjelica Clarke MD [address] [facility] [place] [address] PCP - General Internal Medicine 05/31/20 05/11/25 Roberto Carlos Hancock NP [address] [facility] [place] [address] PCP - General Nurse Practitioner 05/12/25 Anjelica Clarke MD [address] [facility] [place] [address] Internal Medicine 01/08/19 documented as of this encounter Additional Source Comments The information contained in this document represents components of the legal health record. It is not the complete legal health record.[facility]
== END 2025-07-13 11:49 | disposition home or self-care (01) ==
LOC: HO.HMCC 10:47
PROVIDERS: PCP Nurse Practitioner Family; Visit Provider Nurse Practitioner Family
DX: E78.5 Hyperlipidemia, unspecified (principal); C69.30 Malignant neoplasm of unspecified choroid

== ENCOUNTER → 2025-07-13 10:46 | Outpatient (BNVA) | payer MEDICARE, SELFPAY | PROVIDERS: PCP Nurse Practitioner Family; Visit Provider Nurse Practitioner Family | DX: Z00.00 Encounter for general adult medical examination without abnormal findings (principal); M26.602 Left temporomandibular joint disorder, unspecified; E78.5 Hyperlipidemia, unspecified; M81.0 Age-related osteoporosis without current pathological fracture; K21.9 Gastro-esophageal reflux disease without esophagitis; C69.30 Malignant neoplasm of unspecified choroid | CPT/HCPCS: 96127; 99212 ==

== ENCOUNTER 2025-08-13 12:11 | Outpatient (REF) | payer MEDICARE, SELFPAY ==
--- OUTSIDE RECORDS SUMMARY | 2025-08-13 12:44 | XMS_ITS | Encounter Summary ---
Author Organization [facility] Address [facility] [address] [place] [address] Phone Care Team Providers Care Leather Patcher Name Role Phone Calos Valiente MD Primary Care Provider [phone] Niels Sams MD Primary Care Provider Anjelica Clarke MD Unavailable [phone] Unknown, Unknown Primary Care Provider Anjelica Fajardo MD Primary Care Provider [phone] Roberto Carlos Hancock NP Primary Care Provider + Encounter Details Date Type Department Care Team (Late st Contact Info) Description 09/12/2017 Procedure Pass [facility] DE PERIOP DEPT [address] [place] [address] Social History Tobacco Use Types Packs/Day Years [...] Contact Info) Description 05/12/2025 Procedure Pass [address] [address] 12/27/2025 1:00 PM EDT Appointment [address] [address] Roberto Carlos Hancock NP 1960 [facility] [place] [address] 01/13/2026 10:30 AM EDT Office Visit [facility] [address] [facility] 12th [place] [address] Gege Cedeno MD [address] [place] [address] [email or web address] documented as of this encounter Visit Diagnoses Not on filedocumented in this encounter Care Teams Leather Patcher Relationship Specialty Start Date End Date Calos Valiente MD [address] [place] [address] [email or web address] PCP - General Family Medicine 09/04/17 12/15/17 Niels Sams MD [address] [place] [address] [email or web address] PCP - General Family Medicine 12/16/17 01/07/19 Unknown, Nataly, 1960 [place], [place] PCP - General 01/08/19 05/30/20 Anjelica Clarke MD [facility] [place] [facility] [place] PCP - General Internal Medicine 05/31/20 05/11/25 Roberto Carlos Hancock NP [facility] [address] [place] PCP - General Nurse Practitioner 05/12/25 Anjelica Clarke MD [address] [place] [address] Internal Medicine 01/08/19 documented as of this encounter Additional Source Comments The information contained in this document represents components of the legal health record. It is not the complete legal health record.[facility]
--- OUTSIDE RECORDS SUMMARY | 2025-08-13 12:44 | XMS_ITS | Encounter Summary ---
Author Organization [facility] Address [employer] [facility] [address] [place] [address] Phone Care Team Providers Care Transit Manager Name Role Phone Anjelica Clarke MD Unavailable [phone] Anjelica Clarke MD Primary Care Provider [phone] Roberto Carlos Hancock NP Primary Care Provider + Encounter Details Date Type Department Care Team (Late st Contact Info) Description 04/03/2024 Telephone [facility] [address] [place] [address] Gege Cedeno MD [address] [place] [address] [email or web address] Social History Tobacco Use Types Packs/Day [...] st Contact Info) Description 05/12/2025 Procedure Pass [address] [address] 12/27/2025 1:00 PM EDT Appointment [address] [address] Roberto Carlos Hancock NP [address] [place] [address] [place] [address] 01/13/2026 10:30 AM EDT Office Visit [facility] [address] [place] [address] Gege Cedeno MD [address] [place] [address] [email or web address] documented as of this encounter Visit Diagnoses Not on filedocumented in this encounter Care Teams Transit Manager Relationship Specialty Start Date End Date Anjelica Clarke MD [address] [place] [address] PCP - General Internal Medicine 05/31/20 05/11/25 Roberto Carlos Hancock NP [address] [place] [address] [place] [address] PCP - General Nurse Practitioner 05/12/25 Anjelica Clarke MD [address] [place] [address] Internal Medicine 01/08/19 documented as of this encounter Additional Source Comments The information contained in this document represents components of the legal health record. It is not the complete legal health record.[facility]
--- OUTSIDE RECORDS SUMMARY | 2025-08-13 12:44 | XMS_ITS | Encounter Summary ---
Author Organization [facility] Address [facility] [employer] [address] [address] Phone Care Team Providers Care Hand Tennis Ball Coverer Name Role Phone Unknown, Unknown Primary Care Provider Calos Whitt MD Primary Care Provider [phone] Niels Sams MD Primary Care Provider [phone] Anjelica Clarke MD Unavailable [phone] Unknown, Unknown Primary Care Provider Anjelica Fajardo MD Primary Care Provider [phone] Roberto Carlos Hancock NP Primary Care Provider + Encounter Details Date Type Department Care Team (Latest Contact Info) Description 08/27/2017 Transcribe Orders [facility] Billie [address] [address] Madina Bernal PA [address] [place] [address] Abdominal pain, left lower quadrant (Primary Dx) [...] st Contact Info) Description 05/12/2025 Procedure Pass [address] [address] 12/27/2025 1:00 PM EDT Appointment [address] [address] Roberto Carlos Hancock NP [employer] [place] [address] 01/13/2026 10:30 AM EDT Office Visit [address] 12th [place] [address] Gege Cedeno MD [address] [place] [address] [email or web address] documented as of this encounter Results * Creatinine/eGFR (08/27/2017 1:29 PM EST) CREATININE 0.70 0.5 - 1.5 mg/dL [facility] EGFR >60 mL/min/1.7 3m2 [facility] Comment:Abnormal if <60. If patient is -Portuguese, multiply the result by 1.21. Blood 08/27/2017 1:29 PM EST 08/27/2017 1:32 PM EST us Madina NUR LAB BLOOD BKR ORDERABLES Fi nal Result [address] [address] documented in this encounter Visit Diagnoses Diagnosis Abdominal pain, left lower quadrant- Primary documented in this encounter Care Teams Hand Tennis Ball Coverer Relationship Specialty Start Date End Date Unknown, Unknown, MD PCP - General 05/30/17 09/03/17 Calos Valiente MD [address] [place] [address] [email or web address] PCP - General Family Medicine 09/04/17 12/15/17 Niels Sams MD [address] [place] [address] [email or web address] PCP - General Family Medicine 12/16/17 01/07/19 Unknown, Nataly, MD PCP - General 01/08/19 05/30/20 Anjelica Clarke MD [address] [place] [address] PCP - General Internal Medicine 05/31/20 05/11/25 Roberto Carlos Hancock NP [address] [place] [address] PCP - General Nurse Practitioner 05/12/25 Anjelica Clarke MD [address] [place] [address] Internal Medicine 01/08/19 documented as of this encounter Additional Source Comments The information contained in this document represents components of the legal health record. It is not the complete legal health record.[facility]
--- OUTSIDE RECORDS SUMMARY | 2025-08-13 12:44 | XMS_ITS | Encounter Summary ---
Author Organization [facility] Address [address] [facility] [address] [place] [address] Phone Care Team Providers Care Insole And Outsole Preparer Name Role Phone Anjelica Clarke MD Unavailable [phone] Unknown, Unknown Primary Care Provider Anjelica Fajardo MD Primary Care Provider [phone] Roberto Carlos Hancock NP Primary Care Provider + Encounter Details Date Type Department Care Team (Late st Contact Info) Description 11/06/2019 Ancillary Orders Virtual Department 30 [place] [address] Anjelica Clarke MD [facility] [place] [address] Breast screening Social History Tobacco Use Types [...] Info) Description 05/12/2025 Procedure Pass [facility]right Zaire [address] [address] 12/27/2025 1:00 PM EDT Appointment [address] [address] Roberto Carlos Hancock NP [address] [facility] [place] [address] 01/13/2026 10:30 AM EDT Office Visit [facility] [address] [facility] 12th [place] [address] Gege Cedeno MD [address] [place] [address] [email or web address] documented as of this encounter Results * [...] unspecified documented in this encounter Care Teams Insole And Outsole Preparer Relationship Specialty Start Date End Date Unknown, Unknown, MD [address] [place], [place] PCP - General 01/08/19 05/30/20 Anjelica Clarke MD [facility] [place], [place] PCP - General Internal Medicine 05/31/20 05/11/25 Roberto Carlos Hancock NP [facility] [place], [place] PCP - General Nurse Practitioner 05/12/25 Anjelica Clarke MD [address] [place] [address] Internal Medicine 01/08/19 documented as of this encounter Additional Source Comments The information contained in this document represents components of the legal health record. It is not the complete legal health record.[facility]
--- OUTSIDE RECORDS SUMMARY | 2025-08-13 12:44 | XMS_ITS | Encounter Summary ---
Author Organization [facility] Address [facility] [address] [address] Phone Care Team Providers Care Singer And Unloader Name Role Phone Niels Sams MD Primary Care Provider Anjelica Clarke MD Unavailable [phone] Unknown, Unknown Primary Care Provider Anjelica Fajardo MD Primary Care Provider [phone] Roberto Carlos Hancock NP Primary Care Provider + Encounter Details Date Type Department Care Team (Late st Contact Info) Description 12/16/2017 Ancillary Orders [facility] External Provider Virtual Department 30 [place] [address] Niels Sams MD 70 [place] [address] [email or web address] Breast screening Social History Tobacco Use Types [...] st Contact Info) Description 05/12/2025 Procedure Pass [address] [address] 12/27/2025 1:00 PM EDT Appointment [address] [address] Roberto Carlos Hancock, SIMON [facility] [place] [address] 01/13/2026 10:30 AM EDT Office Visit [facility] [address] [address] Gege Cedeno MD [address] [place] [address] [email or web address] [...] lowers the sensitivity of mammography. POS - [id number] Narrative 01/27/2018 12:49 PM EDT Full-field digital [...] whichlowers the sensitivity of mammography. POS - [id number] Niels Sams MD IMG MG EXAMS Final Result documented in this encounter Visit Diagnoses Diagnosis Breast screening Breast screening, unspecified Breast screening Breast screening, unspecified documented in this encounter Care Teams Singer And Unloader Relationship Specialty Start Date End Date Niels Sams MD PCP - General Family Medicine 12/16/17 01/07/19 Unknown, Nataly, [address] [place] [address] [facility] [place] PCP - General 01/08/19 05/30/20 Anjelica Clarke MD [facility] [place] PCP - General Internal Medicine 05/31/20 05/11/25 Roberto Carlos Hancock NP [address] [place] [address] [place] PCP - General Nurse Practitioner 05/12/25 Anjelica Clarke MD [address] [place] [address] Internal Medicine 01/08/19 documented as of this encounter Additional Source Comments The information contained in this document represents components of the legal health record. It is not the complete legal health record.[facility]
--- OUTSIDE RECORDS SUMMARY | 2025-08-13 12:44 | XMS_ITS | Encounter Summary ---
Author Organization [facility] Address [facility] Followap [facility] [address] [place] [address] Phone Care Team Providers Care Forest Logistics Manager Name Role Phone Anjelica Clarke MD Unavailable Anjelica Clarke MD Primary Care Provider Roberto Carlos Hancock NP Primary Care Provider + Encounter Details Date Type Department Care Team (Late st Contact Info) Description 06/01/2020 Procedure Pass [address] [address] Social History Tobacco Use Types Packs/Day Years [...] Contact Info) Description 05/12/2025 Procedure Pass [address] [address] 12/27/2025 1:00 PM EDT Appointment [address] [address] Roberto Carlos Hancock NP [address] [place] [address] [place] [address] 01/13/2026 10:30 AM EDT Office Visit [facility] [address] 12th [place] [address] Gege Cedeno MD [address] [place] [address] [email or web address] documented as of this encounter Visit Diagnoses Not on filedocumented in this encounter Care Teams Forest Logistics Manager Relationship Specialty Start Date End Date Anjelica Clarke MD [address] [place] [address] PCP - General Internal Medicine 05/31/20 05/11/25 Roberto Carlos Hancock NP [address] [place] [address] [place] [address] PCP - General Nurse Practitioner 05/12/25 Anjelica Clarke MD [address] [place] [address] Internal Medicine 01/08/19 documented as of this encounter Additional Source Comments The information contained in this document represents components of the legal health record. It is not the complete legal health record.[facility]
--- OUTSIDE RECORDS SUMMARY | 2025-08-13 12:44 | XMS_ITS | Encounter Summary ---
Author Organization [facility] Address [address] [place] [address] [place] [address] Phone Care Team Providers Care Cement Contractor Name Role Phone Calos Valiente MD Primary Care Provider [phone] Niels Sams MD Primary Care Provider Anjelica Clarke MD Unavailable [phone] Unknown, Unknown Primary Care Provider Anjelica Fajardo MD Primary Care Provider [phone] Roberto Carlos Hancock NP Primary Care Provider + Reason for Referral * MRI/CAT Scan - Closed Specialty Diagnoses / Procedures Referred By Contjulius t Referred To Contact Radiology Diagnoses Other nonspecific abnormal finding of lung field (CODE) Procedures CT Chest Calos Valiente MD Phone: tel: fax: [email or web address] Referral ID Status Reason Start Date Expiration Date Visits Re quested Visits Authorized [id number] Closed 09/24/2017 09/24/2018 1 1 Encounter Details Date Type Department Care Team (Late st Contact Info) Description 09/24/2017 Ancillary Orders [facility] 30 [place] [address] Calos Valiente MD [address] [place] [address] [email or web address] Other nonspecific abnormal finding of lung field [...] st Contact Info) Description 05/12/2025 Procedure Pass [address] [address] 12/27/2025 1:00 PM EDT Appointment [address] [address] Roberto Carlos Hancock, SIMON [facility]2 [facility] [address] 01/13/2026 10:30 AM EDT Office Visit [address] [address] Gege Cedeno MD [address] [place] [address] [email or web address] documented as of this encounter [...] (CODE) documented in this encounter Care Teams Cement Contractor Relationship Specialty Start Date End Date Calos Valiente MD 70 [place] [address] [email or web address] PCP - General Family Medicine 09/04/17 12/15/17 Niels Sams MD [address] [place] [address] [email or web address] PCP - General Family Medicine 12/16/17 01/07/19 Unknown, MD Nataly [address] [place] [address] PCP - General 01/08/19 05/30/20 Anjelica Clarke MD [address] [place] [address] PCP - General Internal Medicine 05/31/20 05/11/25 Roberto Carlos Hancock NP [address] [place] [address] PCP - General Nurse Practitioner 05/12/25 Anjelica Clarke MD [address] [place] [address] Internal Medicine 01/08/19 documented as of this encounter Additional Source Comments The information contained in this document represents components of the legal health record. It is not the complete legal health record.[facility]
--- OUTSIDE RECORDS SUMMARY | 2025-08-13 12:44 | XMS_ITS | Encounter Summary ---
Author Organization [facility] Address [address] [facility] [address] [place] [address] Phone Care Team Providers Care Felt Hooker Name Role Phone Anjelica Clarke MD Unavailable [phone] Anjelica Clarke MD Primary Care Provider [phone] Roberto Carlos Hancock NP Primary Care Provider + Encounter Details Date Type Department Care Team (Late st Contact Info) Description 03/23/2022 Transcribe Orders Virtual Department 30 [place] [address] Anjelica Clarke MD [facility]2 [place] [address] Encounter for screening mammogram for malignant neoplasm [...] st Contact Info) Description 05/12/2025 Procedure Pass [address] [address] 12/27/2025 1:00 PM EDT Appointment [address] [address] Roberto Carlos Hancock NP [address] [place] [address] 01/13/2026 10:30 AM EDT Office Visit [facility] 243 [facility] 12th [place] [address] Gege Cedeno MD [address] [place] [address] [email or web address] documented as of this encounter Results * [...] breast documented in this encounter Care Teams Felt Hooker Relationship Specialty Start Date End Date Anjelica Clarke MD [address] [place] [address] PCP - General Internal Medicine 05/31/20 05/11/25 Roberto Carlos Hancock NP [address] [place] [address] [place] [address] PCP - General Nurse Practitioner 05/12/25 Anjelica Clarke MD [address] [place] [address] Internal Medicine 01/08/19 documented as of this encounter Additional Source Comments The information contained in this document represents components of the legal health record. It is not the complete legal health record.[facility]
--- OUTSIDE RECORDS SUMMARY | 2025-08-13 12:44 | XMS_ITS | Encounter Summary ---
Author Organization [facility] Address [facility] [address] [place] [address] Phone Care Team Providers Care Deicer Finisher Name Role Phone Calos Valiente MD Primary Care Provider [phone] Niels Sams MD Primary Care Provider [phone] Anjelica Clarke MD Unavailable [phone] Unknown, Unknown Primary Care Provider Anjelica Fajardo MD Primary Care Provider [phone] Roberto Carlos Hancock NP Primary Care Provider + Encounter Details Date Type Department Care Team (Latest Contact Info) Description 10/02/2017 Transcribe Orders [facility] Phleb Billie [address] [phone] Madina Bernal PA 10 [place] [address] Abdominal pain, left lower quadrant (Primary Dx) [...] st Contact Info) Description 05/12/2025 Procedure Pass [address] [address] 12/27/2025 1:00 PM EDT Appointment [address] [address] Roberto Carlos Hancock, SIMON [facility]2 [facility] [place] [address] 01/13/2026 10:30 AM EDT Office Visit [address] [address] Gege Cedeno MD [address] [place] [address] [email or web address] documented as of this encounter Results * C-Reactive Protein (10/02/2017 12:17 PM EST) C REACTIVE PROTEIN 0.1 0 - 0.5 mg/L [facility] Blood 10/02/2017 12:1 7 PM EST 10/02/2017 12:20 PM EST us Madina NUR LAB BLOOD BKR ORDERABLES Fi nal Result [address] [address] * Comprehensive metabolic panel (10/02/2017 12:17 PM EST) SODIUM 142 133 - 146 mmol/L [facility] POTASSIUM 4.5 3.3 - 5.1 mmol/L [facility] CHLORIDE 102 96 - 108 mmol/L [facility] CO2 30 21 - 35 mmol/L [facility] BUN 18 6 - 19 mg/dL [facility] CREATININE 0.60 0.5 - 1.5 mg/dL [facility] GLUCOSE 95 70 - 99 mg/dL [facility] ALBUMIN 4.5 3.9 - 4.8 g/dL [facility] TOTAL PROTEIN 7.4 6.5 - 8.0 g/dL [facility] CALCIUM 9.8 8.4 - 10.3 mg/dL [facility] ALKALINE PHOSPHATASE 63 39 - 117 U/L [facility] TOTAL BILIRUBIN 0.4 0 - 1.2 mg/dL [facility] AST 19 0 - 37 U/L [facility] ALT 10 0 - 40 U/L [facility] GLOBULIN 2.9 1 - 4.8 g/dL [facility] EGFR >60 mL/min/1.7 3m2 [facility] Comment:Abnormal if <60. If patient is -Estonian, multiply the result by 1.21. ANION GAP 15 10 - 20 mmol/L [facility] Blood 10/02/2017 12:1 7 PM EST 10/02/2017 12:20 PM EST us Madina NUR LAB BLOOD BKR ORDERABLES Fi nal Result [facility] 30 [place] [address] * CBC and differential (10/02/2017 12:17 PM EST) WBC 6.61 3.40 - 11.20 K/uL [facility] RBC 4.65 3.80 - 4.80 M/uL [facility] HGB 13.7 12.0 - 15.0 g/dL [facility] HCT 42.5 36.0 - 46.0 % [facility] PLT 268 130 - 400 K/uL [facility] MCV 91.4 79.0 - 98.0 fL [facility] MCH 29.5 27.0 - 34.8 pg [facility] MCHC 32.2 31.5 - 36.0 g/dL [facility] RDW 13.3 10.8 - 14.6 % [facility] MPV 10.4 9.4 - 12.4 fl [facility] NRBC 0.00 /100 WBCs [facility] ABSOLUTE NRBC 0.00 K/uL [facility] DIFF METHOD Auto [facility] NEUTS 56.3 45.30 - 77.70 % [facility] LYMPHS 34.5 12.30 - 39.70 % [facility] MONOS 7.1 4.10 - 12.80 % [facility] EOS 1.4 0 - 7.2 % [facility] BASOS 0.2 0 - 2.80 % [facility] Granulocytes, immature (%) 0.5 0.0 - 0.9 % [facility] ABSOLUTE NEUTS 3.73 1.40 - 7.70 K/uL [facility] ABSOLUTE LYMPHS 2.28 0.60 - 3.20 K/uL [facility] ABSOLUTE MONOS 0.47 0.11 - 0.59 K/uL [facility] ABSOLUTE EOS 0.09 0.01 - 0.50 K/uL [facility] ABSOLUTE BASOS 0.01 0.00 - 0.08 K/uL [facility] Granulocytes, immature 0.03 0.00 - 0.05 K/uL [facility] Blood 10/02/2017 12:1 7 PM EST 10/02/2017 12:20 PM EST us Madina NUR LAB BLOOD BKR ORDERABLES Fi nal Result Performing Organization Address City/State/[facility] Co de Phone Number [facility] [address] [place] [address] documented in this encounter Visit Diagnoses Diagnosis Abdominal pain, left lower quadrant- Primary documented in this encounter Care Teams Deicer Finisher Relationship Specialty Start Date End Date Calos Valiente MD 70 [place] [address] [email or web address] PCP - General Family Medicine 09/04/17 12/15/17 Niels Sams MD 70 [place] [address] PCP - General Family Medicine 12/16/17 01/07/19 Unknown, Unknown, [address] [place] [address] [place] PCP - General 01/08/19 05/30/20 Anjelica Clarke MD [address] [place] [address] [place] PCP - General Internal Medicine 05/31/20 05/11/25 Roberto Carlos Hancock NP [address] [place] [address] [place] PCP - General Nurse Practitioner 05/12/25 Anjelica Clarke MD [address] [place] [address] [facility] [place] [place] Internal Medicine 01/08/19 documented as of this encounter Additional Source Comments The information contained in this document represents components of the legal health record. It is not the complete legal health record.[facility]
--- OUTSIDE RECORDS SUMMARY | 2025-08-13 12:44 | XMS_ITS | Encounter Summary ---
Author Organization [facility] Address [address] [address] Phone Care Team Providers Care Investigation Specialist Name Role Phone Anjelica Clarke MD Unavailable [phone] Anjelica Clarke MD Primary Care Provider [phone] Roberto Carlos Hancock NP Primary Care Provider + Encounter Details Date Type Department Care Team (Late st Contact Info) Description 04/05/2023 Procedure Pass [facility], [address] [id number] Social History Tobacco Use Types Packs/Day Years [...] st Contact Info) Description 05/12/2025 Procedure Pass [address] [address] 12/27/2025 1:00 PM EDT Appointment [address] [address] Roberto Carlos Hancock NP [address] [place] [address] [place] [address] 01/13/2026 10:30 AM EDT Office Visit [address] 12th [place] [address] Gege Cedeno MD [address] [place] [address] [email or web address] documented as of this encounter Visit Diagnoses Not on filedocumented in this encounter Care Teams Investigation Specialist Relationship Specialty Start Date End Date Anjelica Clarke MD [address] [place] [address] PCP - General Internal Medicine 05/31/20 05/11/25 Roberto Carlos Hancock NP [address] [place] [address] [place] [address] PCP - General Nurse Practitioner 05/12/25 Anjelica Clarke MD [address] [place] [address] [place], [place] Internal Medicine 01/08/19 documented as of this encounter Additional Source Comments The information contained in this document represents components of the legal health record. It is not the complete legal health record.[facility]
--- OUTSIDE RECORDS SUMMARY | 2025-08-13 12:44 | XMS_ITS | Encounter Summary ---
Author Organization [facility] Address [facility] [employer] [facility] [address] [place] [address] Phone Care Team Providers Care Dive Superintendent Name Role Phone Niels Sams MD Primary Care Provider [phone] Anjelica Clarke MD Unavailable [phone] Unknown, Unknown Primary Care Provider Anjelica Fajardo MD Primary Care Provider [phone] Roberto Carlos Hancock NP Primary Care Provider + Encounter Details Date Type Department Care Team (Latest Contact Info) Description 12/18/2017 Transcribe Orders [facility] Phleb Billie [address] 2nd [place] [address] Tru Roberts MD [address] [address] Abdominal pain, left lower quadrant (Primary Dx); [...] st Contact Info) Description 05/12/2025 Procedure Pass [address] [address] 12/27/2025 1:00 PM EDT Appointment [address] [address] Roberto Carlos Hancock, SIMON [address] [place] [address] [place] [address] 01/13/2026 10:30 AM EDT Office Visit [address] [place] [address] Gege Cedeno MD [address] [place] [address] [email or web address] documented as of this encounter Results * Immunoglobulin A (12/18/2017 11:36 AM EDT) IgA 376 70 - 400 mg/dL [facility] Blood 12/18/2017 11:3 6 AM EDT 12/18/2017 11:42 AM EDT us Tru Roberts MD LAB BLOOD BKR ORDERABLES José Miguel al Result [address] [address] * LFTs (hepatic panel) (12/18/2017 11:36 AM EDT) ALKALINE PHOSPHATASE 60 39 - 117 U/L [facility] TOTAL BILIRUBIN 0.4 0.0 - 1.2 mg/dL [facility] DIRECT BILIRUBIN <0.2 0 - 0.3 mg/dL [facility] Bilirubin (Indirect) NOT CALCULATED 0 - 1.5 mg/dL [facility] AST 17 0 - 37 U/L [facility] ALT 11 0 - 40 U/L [facility] TOTAL PROTEIN 6.9 6.5 - 8.0 g/dL [facility] ALBUMIN 4.1 3.9 - 4.8 g/dL [facility] GLOBULIN 2.8 1 - 4.8 g/dL [facility] A/G Ratio 1.46 1.00 - 4.80 RATIO [facility] Blood 12/18/2017 11:3 6 AM EDT 12/18/2017 11:42 AM EDT us Tru Roberts MD LAB BLOOD BKR ORDERABLES Fin al Result Performing Organization Address City/[facility]/ZIP Co de Phone Number [address] [address] * C-Reactive Protein (12/18/2017 11:36 AM EDT) C REACTIVE PROTEIN 0.1 0 - 0.5 mg/L [facility] Blood 12/18/2017 11:3 6 AM EDT 12/18/2017 11:42 AM EDT us Tru Roberts MD LAB BLOOD BKR ORDERABLES Fin al Result Performing Organization Address City/[facility]/ZIP Co de Phone Number [address] [address] * Tissue transglutaminase IgA (12/18/2017 11:36 AM EDT) TTG IGA ANTIBODY <1.2 <4.0 (Negative) U/mL [facility] DPT OF LAB MED AND PAT+ Blood 12/18/2017 11:3 6 AM EDT 12/18/2017 11:41 AM EDT us Tru Roberts MD LAB BLOOD BKR ORDERABLES Fin al Result [facility] DPT OF LAB MED AND PAT+ [address] [place] [address] * CBC and differential (12/18/2017 11:36 AM EDT) WBC 5.80 3.40 - 11.20 K/uL [facility] RBC 4.48 3.80 - 4.80 M/uL [facility] HGB 13.2 12.0 - 15.0 g/dL [facility] HCT 40.5 36.0 - 46.0 % [facility] PLT 249 130 - 400 K/uL [facility] MCV 90.4 79.0 - 98.0 fL [facility] MCH 29.5 27.0 - 34.8 pg [facility] MCHC 32.6 31.5 - 36.0 g/dL [facility] RDW 13.2 10.8 - 14.6 % [facility] MPV 10.4 9.4 - 12.4 fl [facility] NRBC 0.00 /100 WBCs [facility] ABSOLUTE NRBC 0.00 K/uL [facility] DIFF METHOD Auto [facility] NEUTS 54.6 45.30 - 77.70 % [facility] LYMPHS 35.9 12.30 - 39.70 % [facility] MONOS 6.9 4.10 - 12.80 % [facility] EOS 2.1 0 - 7.2 % [facility] BASOS 0.3 0 - 2.80 % [facility] Granulocytes, immature (%) 0.2 0.0 - 0.9 % [facility] ABSOLUTE NEUTS 3.17 1.40 - 7.70 K/uL [facility] ABSOLUTE LYMPHS 2.08 0.60 - 3.20 K/uL [facility] ABSOLUTE MONOS 0.40 0.11 - 0.59 K/uL [facility] ABSOLUTE EOS 0.12 0.01 - 0.50 K/uL [facility] ABSOLUTE BASOS 0.02 0.00 - 0.08 K/uL [facility] Granulocytes, immature 0.01 0.00 - 0.05 K/uL [facility] Blood 12/18/2017 11:3 6 AM EDT 12/18/2017 11:42 AM EDT us Tru Roberts MD LAB BLOOD BKR ORDERABLES Fin al Result [facility] [address] [place] [address] documented in this encounter Visit Diagnoses Diagnosis Abdominal pain, left lower quadrant- Primary Abdominal distention Flatulence, eructation, and gas pain 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 documented in this encounter Care Teams Dive Superintendent Relationship Specialty Start Date End Date Niels Sams MD [email or web address] PCP - General Family Medicine 12/16/17 01/07/19 Unknown, Unknown, [address] [place] [address] PCP - General 01/08/19 05/30/20 Anjelica Clarke MD [address] [place] [address] PCP - General Internal Medicine 05/31/20 05/11/25 Roberto Carlos Hancock NP [address] [place] [address] PCP - General Nurse Practitioner 05/12/25 Anjelica Clarke MD [address] [place] [address] Internal Medicine 01/08/19 documented as of this encounter Additional Source Comments The information contained in this document represents components of the legal health record. It is not the complete legal health record.[facility]
--- OUTSIDE RECORDS SUMMARY | 2025-08-13 12:44 | XMS_ITS | Encounter Summary ---
Author Organization [facility] Address [facility] Department of Health and Human Services [facility] [address] [place] [address] Phone Care Team Providers Care Company Manager Name Role Phone Niels Sams MD Primary Care Provider [phone] Anjelica Clarke MD Unavailable [phone] Unknown, Unknown Primary Care Provider Anjelica Fajardo MD Primary Care Provider [phone] Roberto Carlos Hancock NP Primary Care Provider + Encounter Details Date Type Department Care Team (Late st Contact Info) Description 12/16/2017 Ancillary Orders [facility] External Provider Virtual Department [address] [place] [address] Calos Valiente MD [address] [place] [address] [email or web address] Social History Tobacco Use Types Packs/Day Years [...] st Contact Info) Description 05/12/2025 Procedure Pass [address] [address] 12/27/2025 1:00 PM EDT Appointment [address] [address] Roberto Carlos Hancock NP [address] [facility] [address] [place] 01/13/2026 10:30 AM EDT Office Visit [address] [address] Gege Cedeno MD [address] [place] [address] [email or web address] documented as of this encounter Visit Diagnoses Not on filedocumented in this encounter Care Teams Company Manager Relationship Specialty Start Date End Date Niels Sams MD [email or web address] PCP - General Family Medicine 12/16/17 01/07/19 Unknown, MD Nataly [address] [place], [place] PCP - General 01/08/19 05/30/20 Anjelica Clarke MD [facility] [place], [place] PCP - General Internal Medicine 05/31/20 05/11/25 Roberto Carlos Hancock NP [facility] [address] [place] PCP - General Nurse Practitioner 05/12/25 Anjelica Clarke MD [address] [place] [address] Internal Medicine 01/08/19 documented as of this encounter Additional Source Comments The information contained in this document represents components of the legal health record. It is not the complete legal health record.[facility]
--- OUTSIDE RECORDS SUMMARY | 2025-08-13 12:44 | XMS_ITS | Encounter Summary ---
Author Organization [facility] Address [facility] [employer] [address] [address] Phone Care Team Providers Care Bookkeeping Teacher Name Role Phone Niels Sams MD Primary Care Provider [phone] Anjelica Clarke MD Unavailable [phone] Unknown, Unknown Primary Care Provider Anjelica Fajardo MD Primary Care Provider [phone] Roberto Carlos Hancock NP Primary Care Provider + Encounter Details Date Type Department Care Team (Late Contact Info) Description 11/21/2018 Ancillary Orders Virtual Department 30 [place] [address] Niels Sams MD [address] [place] [address] Breast screening Social History Tobacco Use Types [...] st Contact Info) Description 05/12/2025 Procedure Pass [address] [address] 12/27/2025 1:00 PM EDT Appointment [address] [address] Roberto Carlos Hancock, SIMON [address] [facility] [place] [address] 01/13/2026 10:30 AM EDT Office Visit [address] [address] Gege Cedeno MD [address] [place] [address] [email or web address] documented as of this encounter [...] There are scattered fibroglandular densities. POS - [id number] Narrative 01/28/2019 6:46 PM EDT FINDINGS: Bilateral [...] There are scattered fibroglandular densities. POS - [id number] Niels Sams MD IMG MG EXAMS Final Result documented in this encounter Visit Diagnoses Diagnosis Breast screening Breast screening, unspecified Breast screening Breast screening, unspecified documented in this encounter Care Teams Bookkeeping Teacher Relationship Specialty Start Date End Date Niels Sams MD [email or web address] PCP - General Family Medicine 12/16/17 01/07/19 Unknown, Nataly, [address] [place] [address] [facility] [place] PCP - General 01/08/19 05/30/20 Anjelica Clarke MD [facility] [place] PCP - General Internal Medicine 05/31/20 05/11/25 Roberto Carlos Hancock NP [address] [place] [address] [place] PCP - General Nurse Practitioner 05/12/25 Anjelica Clarke MD [facility] [place] [address] Internal Medicine 01/08/19 documented as of this encounter Additional Source Comments The information contained in this document represents components of the legal health record. It is not the complete legal health record.[facility]
--- OUTSIDE RECORDS SUMMARY | 2025-08-13 12:44 | XMS_ITS | Encounter Summary ---
Author Organization [facility] Address [address] [facility] [address] [place] [address] Phone Care Team Providers Care Resume Specialist Name Role Phone Anjelica Clarke MD Unavailable [phone] Anjelica Clarke MD Primary Care Provider [phone] Roberto Carlos Hancock NP Primary Care Provider + Encounter Details Date Type Department Care Team (Late st Contact Info) Description 06/01/2020 Ancillary Orders [facility] Department [address] [place] [address] Anjelica Clarke MD [facility] [place] [place] [address] Abnormal mammogram Social History Tobacco Use Types [...] st Contact Info) Description 05/12/2025 [facility] 30 [place] [address] 12/27/2025 1:00 PM EDT Appointment [facility] [address] [place] [address] Roberto Carlos Hancock, SIMON [facility] [place] [address] 01/13/2026 10:30 AM EDT Office Visit [facility] [address] [facility] 12th [place] [address] Gege Cedeno MD [address] [place] [address] [email or web address] documented as of this encounter Results * BI US BREAST LIMITED (RIGHT) (06/29/2020 1:58 PM EDT) Anatomical Region Laterality Modality Breast Right, Breast Bilateral Right U ltrasound 06/29/2020 1:53 PM EDT Narrative 06/29/2020 1:58 PM EDT Refer to the mammogram report. Procedure Note Danisha Desai MD - 06/29/2020 Refer to the mammogram report. Anjelica Clarke MD [facility] US BREAST Final Result * BI MAMMOGRAM [...] unspecified documented in this encounter Care Teams Resume Specialist Relationship Specialty Start Date End Date Anjelica Clarke MD [address] [place] [address] PCP - General Internal Medicine 05/31/20 05/11/25 Roberto Carlos Hancock NP [address] [place] [address] PCP - General Nurse Practitioner 05/12/25 Anjelica Clarke MD [facility] [place] [address] Internal Medicine 01/08/19 documented as of this encounter Additional Source Comments The information contained in this document represents components of the legal health record. It is not the complete legal health record.[facility]
--- OUTSIDE RECORDS SUMMARY | 2025-08-13 12:44 | XMS_ITS | Encounter Summary ---
Author Organization [facility] Address [address] [facility] [address] [place] [address] Phone Care Team Providers Care Rn Security Name Role Phone Anjelica Clarke MD Unavailable [phone] Anjelica Clarke MD Primary Care Provider [phone] Roberto Carlos Hancock NP Primary Care Provider + Encounter Details Date Type Department Care Team (Late st Contact Info) Description 04/04/2021 Ancillary Orders [facility] Department [address] [place] [address] Anjelica Clarke MD [facility]2 [place] [address] Breast screening Social History Tobacco Use Types [...] st Contact Info) Description 05/12/2025 Procedure Pass [facility] 30 [place] [address] 12/27/2025 1:00 PM EDT Appointment [facility], [facility] [address] [place] [address] Roberto Carlos Hancock, SIMON [address] [facility] [place] [address] 01/13/2026 10:30 AM EDT Office Visit [facility] [address] [facility] 12th [place] [address] Gege Cedeno MD [address] [place] [address] [email or web address] documented as of this encounter [...] unspecified documented in this encounter Care Teams Rn Security Relationship Specialty Start Date End Date Anjelica Clarke MD [address] [place] [address] PCP - General Internal Medicine 05/31/20 05/11/25 Roberto Carlos Hancock NP [facility] [address] PCP - General Nurse Practitioner 05/12/25 Anjelica Clarke MD [facility] [place] [address] Internal Medicine 01/08/19 documented as of this encounter Additional Source Comments The information contained in this document represents components of the legal health record. It is not the complete legal health record.[facility]
--- OUTSIDE RECORDS SUMMARY | 2025-08-13 12:44 | XMS_ITS | Encounter Summary ---
Author Organization [facility] Address [facility] [address] [place] [address] Phone Care Team Providers Care Latent Fingerprint Examiner Name Role Phone Anjelica Clarke MD Unavailable [phone] Unknown, Unknown Primary Care Provider Anjelica Fajardo MD Primary Care Provider [phone] Roberto Carlos Hancock NP Primary Care Provider + Encounter Details Date Type Department Care Team (Late st Contact Info) Description 05/24/2020 Procedure Pass [address] [address] Social History Tobacco Use Types Packs/Day Years [...] Contact Info) Description 05/12/2025 Procedure Pass [address] [address] 12/27/2025 1:00 PM EDT Appointment [facility] 30 [place] [address] Roberto Carlos Hancock NP [address] [facility] [address] [place] 01/13/2026 10:30 AM EDT Office Visit [facility] [address] [facility] 12th [place] [address] Gege Cedeno MD [address] [place] [address] [email or web address] documented as of this encounter Visit Diagnoses Not on filedocumented in this encounter Care Teams Latent Fingerprint Examiner Relationship Specialty Start Date End Date Unknown, Unknown, MD [address] [place], [place] PCP - General 01/08/19 05/30/20 Anjelica Clarke MD [address] [place] [address] PCP - General Internal Medicine 05/31/20 05/11/25 Roberto Carlos Hancock NP [facility] Dr Lord [place] PCP - General Nurse Practitioner 05/12/25 Anjelica Clarke MD [address] [place] [address] Internal Medicine 01/08/19 documented as of this encounter Additional Source Comments The information contained in this document represents components of the legal health record. It is not the complete legal health record.[facility]
--- OUTSIDE RECORDS SUMMARY | 2025-08-13 12:44 | XMS_ITS | Encounter Summary ---
Author Organization [facility] Address [facility] [address] [place] [address] Phone Care Team Providers Care Product Support Analyst Name Role Phone Anjelica Clarke MD Unavailable [phone] Anjelica Clarke MD Primary Care Provider [phone] Roberto Carlos Hancock NP Primary Care Provider + Encounter Details Date Type Department Care Team (Late st Contact Info) Description 04/04/2021 Procedure Pass [address] [address] Social History Tobacco Use Types Packs/Day Years [...] st Contact Info) Description 05/12/2025 Procedure Pass [address] [address] 12/27/2025 1:00 PM EDT Appointment [address] [address] Roberto Carlos Hancock NP [address] [place] [address] [place] [address] 01/13/2026 10:30 AM EDT Office Visit [facility] [address] 12th [place] [address] Gege Cedeno MD [address] [place] [address] [email or web address] documented as of this encounter Visit Diagnoses Not on filedocumented in this encounter Care Teams Product Support Analyst Relationship Specialty Start Date End Date Anjelica Clarke MD [address] [place] [address] PCP - General Internal Medicine 05/31/20 05/11/25 Roberto Carlos Hancock NP [address] [place] [address] [place] [address] PCP - General Nurse Practitioner 05/12/25 Anjelica Clarke MD [address] [place] [address] Internal Medicine 01/08/19 documented as of this encounter Additional Source Comments The information contained in this document represents components of the legal health record. It is not the complete legal health record.[facility]
--- OUTSIDE RECORDS SUMMARY | 2025-08-13 12:44 | XMS_ITS | Encounter Summary ---
Author Organization [facility] Address [facility] [employer] [facility] [address] [place] [address] Phone Care Team Providers Care Supervisor Display Fabrication Name Role Phone Unknown, Unknown Primary Care Provider Calos Whitt MD Primary Care Provider [phone] Niels Sams MD Primary Care Provider [phone] Anjelica Clarke MD Unavailable [phone] Unknown, Unknown Primary Care Provider Anjelica Fajardo MD Primary Care Provider [phone] Roberto Carlos Hancock NP Primary Care Provider + Encounter Details Date Type Department Care Team (Late st Contact Info) Description 08/27/2017 Procedure Pass [facility], Ct Scan - [address] [address] Social History Tobacco Use Types Packs/Day Years [...] st Contact Info) Description 05/12/2025 Procedure Pass [facility], [address] [address] 12/27/2025 1:00 PM EDT Appointment [facility], [address] [address] Roberto Carlos Hancock NP [address] [facility] [address] Kevin [place] 01/13/2026 10:30 AM EDT Office Visit [facility] [address] [facility] 12th [place] [address] Gege Cedeno MD [address] [place] [address] [email or web address] documented as of this encounter Visit Diagnoses Not on filedocumented in this encounter Care Teams Supervisor Display Fabrication Relationship Specialty Start Date End Date Unknown, Unknown, PCP - General 05/30/17 09/03/17 Calos Valiente MD [address] [place] [address] [email or web address] PCP - General Family Medicine 09/04/17 12/15/17 Niels Sams MD [address] [place] [address] [email or web address] PCP - General Family Medicine 12/16/17 01/07/19 Unknown, Unknown, PCP - General 01/08/19 05/30/20 Anjelica Clarke MD [address] [facility] [place] [address] PCP - General Internal Medicine 05/31/20 05/11/25 Roberto Carlos Hancock NP [facility] Dr Kevin [place] PCP - General Nurse Practitioner 05/12/25 Anjelica Clarke MD [address] [place] [address] Internal Medicine 01/08/19 documented as of this encounter Additional Source Comments The information contained in this document represents components of the legal health record. It is not the complete legal health record.[facility]
--- OUTSIDE RECORDS SUMMARY | 2025-08-13 12:44 | XMS_ITS | Encounter Summary ---
Author Organization [facility] Address [address] [place] [address] [place] [address] Phone Care Team Providers Care Abalone Sheller Name Role Phone Unknown, Unknown Primary Care Provider Calos Whitt MD Primary Care Provider [phone] Niels Sams MD Primary Care Provider [phone] Anjelica Clarke MD Unavailable [phone] Unknown, Unknown Primary Care Provider Anjeilca Fajardo MD Primary Care Provider [phone] Roberto Carlos Hancock NP Primary Care Provider + Reason for Referral * MRI/CAT Scan - Closed Specialty Diagnoses / Procedures Referred By Contac t Referred To Contact Radiology Diagnoses Abdominal pain, left lower quadrant Procedures CT Abdomen/Pelvis Madina Bernal PA Phone: tel: fax: Referral ID Status Reason Start Date Expiration Date Visits Re quested Visits Authorized [id number] Closed 08/27/2017 08/27/2018 1 1 Encounter Details Date Type Department Care Team (Late st Contact Info) Description 08/27/2017 Ancillary Orders [facility] External Provider Virtual Department 30 [place] [address] Madina Bernal PA [address] [place] [address] Abdominal pain, left lower quadrant Social History [...] st Contact Info) Description 05/12/2025 Procedure Pass [address] [address] 12/27/2025 1:00 PM EDT Appointment [address] [address] Roberto Carlos Hancock, SIMON [address] [place] [address] [place] [id number] 01/13/2026 10:30 AM EDT Office Visit [address] [address] Gege Cedeno MD [address] [place] [address] [email or web address] documented as of this encounter [...] quadrant documented in this encounter Care Teams Abalone Sheller Relationship Specialty Start Date End Date Unknown, Unknown, MD PCP - General 05/30/17 09/03/17 Calos Valiente MD [address] [place] [address] [email or web address] PCP - General Family Medicine 09/04/17 12/15/17 Niels Sams MD [address] [place] [address] [email or web address] PCP - General Family Medicine 12/16/17 01/07/19 Unknown, Unknown, MD PCP - General 01/08/19 05/30/20 Anjelica Clarke MD [address] [place] [address] PCP - General Internal Medicine 05/31/20 05/11/25 Roberto Carlos Hancock NP [address] [place] [address] PCP - General Nurse Practitioner 05/12/25 Anjelica Clarke MD [address] [place] [address] Internal Medicine 01/08/19 documented as of this encounter Additional Source Comments The information contained in this document represents components of the legal health record. It is not the complete legal health record.[facility]
--- OUTSIDE RECORDS SUMMARY | 2025-08-13 12:44 | XMS_ITS | Encounter Summary ---
Author Organization [facility] Address [facility] [facility] [address] [place] [address] Phone Care Team Providers Care Loss Prevention And Safety Manager Name Role Phone Calos Valiente MD Primary Care Provider [phone] Niels Sams MD Primary Care Provider [phone] Anjelica Clarke MD Unavailable [phone] Unknown, Unknown Primary Care Provider Anjelica Fajardo MD Primary Care Provider [phone] Roberto Carlos Hancock NP Primary Care Provider + Encounter Details Date Type Department Care Team (Late st Contact Info) Description 09/08/2017 Prep for Surgery [address] [address] Agnieszka Shen MD [address] [place] [address] [email or web address] Combined form of senile cataract of right [...] Contact Info) Description 05/12/2025 Procedure Pass [address] [address] 12/27/2025 1:00 PM EDT Appointment [address] [address] Roberto Carlos Hancock NP [facility] Dr [place], [place] 01/13/2026 10:30 AM EDT Office Visit [address] [place] [address] Gege Cedeno MD [address] [place] [address] [email or web address] documented as of this encounter Visit Diagnoses Diagnosis 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 documented in this encounter Care Teams Loss Prevention And Safety Manager Relationship Specialty Start Date End Date Calos Valiente MD [address] [place] [address] [email or web address] PCP - General Family Medicine 09/04/17 12/15/17 Niels Sams MD [address] [place] [address] [email or web address] PCP - General Family Medicine 12/16/17 01/07/19 Nataly, MD Nataly [address] [place], [place] PCP - General 01/08/19 05/30/20 Anjelica Clarke MD [facility] [place] PCP - General Internal Medicine 05/31/20 05/11/25 Roberto Carlos Hancock NP [facility] [place] [address] PCP - General Nurse Practitioner 05/12/25 Anjelica Clarke MD [facility] [place] [address] Internal Medicine 01/08/19 documented as of this encounter Additional Source Comments The information contained in this document represents components of the legal health record. It is not the complete legal health record.[facility]
--- OUTSIDE RECORDS SUMMARY | 2025-08-13 12:44 | XMS_ITS | Patient Health Record ---
Author Organization [facility] Address [address] [place] [address] Care Team Providers Care Document Review Specialist Name Role Phone Anjelica Clarke MD Primary Care Provider Frank Mccoy [phone] Allergies Allergen (clinical drug ingredient) Drug/Non Drug Allergy documented on EMR Reaction Allergy Type Onset Date Status any medication that ends in dine (uncoded) Unknown Allergy Active aspirin Aspirin Unknown Drug Allergy Active Sulfur Unknown Drug Allergy Active Reason For Referral No Information Medications Medication SIG (Take, Route, Frequency, Duration) Notes Start Date End Date Status Ginkgo 120 mg as directed Orally a s directed Active Glucosamine 1500 1 capsule with a monica l Orally twice a day Active prednisoLONE Acetate Not-Taking/PRN Cranberry 4200 mg 1/2 tablet with meal s Orally Three times a day Active Apple Cider Vinegar Active Latanoprost Active Timolol Maleate Acti ve Pantoprazole Sodium 40 MG Tablet Delayed Release 1 tablet Oral Once or twice a day for the reflux Active Brimonidine Tartrate Active Vitamin B Complex - Tablet as directed Orally Active Immunizations Vaccine Route Administration Date Status Comme nts Influenza Unknown 06/23/2019 Administered Influenza Unknown 06/23/2020 Administered Influenza Unknown 08/15/2021 Administered Influenza Unknown 07/16/2023 Administered Social History Tobacco Use: Social History Observation Description Date Details (start date - stop date) Never Smoker NA - NA Social History Drugs/Alcohol: Social Info Question Answer Notes Alcohol Screen Did you have a drink containing alcohol in the past year? No Points 0 Interpretation Negative Tobacco Use: Social Info Question Answer Notes Tobacco Use/Smoking Patient is a nonsmoker Additional Details Category Social Info Options Details Miscellaneous: Marital status: single Occupation: retired Section Notes: Nonsmoker; no sig alcohol Nonsmoker; no sig alcohol Nonsmoker; no sig alcohol Nonsmoker; no sig alcohol Nonsmoker; no sig alcohol Problems Problem Type SNOMED Code ICD Code Onset Dates Problem Status W/U Status Risk Notes Problem Irritable bowel syndrome (87758002) Irritable bowel syndrome (K58.9) Active confirmed Problem Gastroesophageal reflux disease (560381166) Gastroesophageal reflux disease, esophagitis presence not specified (K21.9) Active confirmed Problem Hiatal hernia (78703642) Hiatal hernia (K44.9) Active confirmed Problem Constipation (81918202) Constipation, unspecified constipation type (K59.00) Active confirmed Problem Gastroesophageal reflux disease (555309604) GERD (gastroesophageal reflux disease) (K21.9) Active confirmed Problem Abnormal findings diagnostic imaging of liver and biliary tract (911751387) Abnormal gallbladder ultrasound (R93.2) Active confirmed Problem Left lower quadrant pain (236626224) Left lower quadrant abdominal pain (R10.32) Active confirmed Encounters Encounter Location Date Provider Diagnosis [facility] [address] [place] [address] 01/12/2025 Frank Avila Plan Of Treatment Future Test Test Name Order Date UPPER GI ENDOSCOPY 04/26/2020 Insurance Providers Payer Name Payer Address Payer Phone Subscriber Number Group Number Insured Name Patient Relationship to Insured Coverage Start Date Coverage End Date MEDICARE OF [place] [address] [facility] [place] [address] [id number] ROCIO HENSON Self - patient is the insured [facility] [employer] [address] [place], [place] [id number] ROCIO HENSON Self - patient is the insured Medical (General) History Medical History History ICD Code Denies [place],DM,CVA,Lung disease,renal dise ase She reports three previous c olonoscopies with the [facility]--she reports a hx of colon [...] any sign of malignancy Partial thyroidectomy at [facility] in 2021 for benign lesion
--- OUTSIDE RECORDS SUMMARY | 2025-08-13 12:44 | XMS_ITS | Encounter Summary ---
Author Organization [facility] Address [facility] [employer] [facility] [address] [place] [address] Phone Care Team Providers Care Lean Leader Name Role Phone Anjelica Clarke MD Unavailable [phone] Anjelica Clarke MD Primary Care Provider [phone] Roberto Carlos Hancock NP Primary Care Provider + Encounter Details Date Type Department Care Team (Late st Contact Info) Description 03/23/2022 Procedure Pass [address] [address] Social History Tobacco Use Types Packs/Day Years [...] Contact Info) Description 05/12/2025 Procedure Pass [address] [address] 12/27/2025 1:00 PM EDT Appointment [address] [address] Roberto Carlos Hancock NP [address] [place] [address] [place] [address] 01/13/2026 10:30 AM EDT Office Visit [facility] [address] 12[address] [place] [address] Gege Cedeno MD [address] [place] [address] [email or web address] documented as of this encounter Visit Diagnoses Not on filedocumented in this encounter Care Teams Lean Leader Relationship Specialty Start Date End Date Anjelica Clarke MD [address] [place] [address] PCP - General Internal Medicine 05/31/20 05/11/25 Roberto Carlos Hancock NP [address] [place] [address] [place] [address] PCP - General Nurse Practitioner 05/12/25 Anjelica Clarke MD [address] [place] [address] Internal Medicine 01/08/19 documented as of this encounter Additional Source Comments The information contained in this document represents components of the legal health record. It is not the complete legal health record.[facility]
--- OUTSIDE RECORDS SUMMARY | 2025-08-13 12:44 | XMS_ITS | Encounter Summary ---
Author Organization [facility] Address [facility] [employer] [facility] [address] [place] [address] Phone Care Team Providers Care Jewelry Inspector Name Role Phone Calos Valiente MD Primary Care Provider [phone] Niels Sams MD Primary Care Provider [phone] Anjelica Clarke MD Unavailable [phone] Unknown, Unknown Primary Care Provider Anjelica Fajardo MD Primary Care Provider [phone] Roberto Carlos Hancock NP Primary Care Provider + Encounter Details Date Type Department Care Team (Late st Contact Info) Description 09/24/2017 Procedure [facility], Ct Scan - [address] [address] Social History Tobacco Use Types Packs/Day Years [...] st Contact Info) Description 05/12/2025 Procedure Pass [address] [address] 12/27/2025 1:00 PM EDT Appointment [address] [address] Roberto Carlos Hancock, SIMON [facility] [place] [address] 01/13/2026 10:30 AM EDT Office Visit [facility] [address] [facility] [address] [place] [address] Gege Cedeno MD [address] [place] [address] [email or web address] documented as of this encounter Visit Diagnoses Not on filedocumented in this encounter Care Teams Jewelry Inspector Relationship Specialty Start Date End Date Calos Valiente MD [address] [place] [address] [email or web address] PCP - General Family Medicine 09/04/17 12/15/17 Niels Sams MD [address] [place] [address] [email or web address] PCP - General Family Medicine 12/16/17 01/07/19 Nataly, MD Nataly [facility] [place], [place] PCP - General 01/08/19 05/30/20 Anjelica Clarke MD [address] [place] [address] [facility] [place] PCP - General Internal Medicine 05/31/20 05/11/25 Roberto Carlos Hancock, SIMON [address] [place] [address] Dr [place] PCP - General Nurse Practitioner 05/12/25 Anjelica Clarke MD [address] [place] [address] Internal Medicine 01/08/19 documented as of this encounter Additional Source Comments The information contained in this document represents components of the legal health record. It is not the complete legal health record.[facility]
--- OUTSIDE RECORDS SUMMARY | 2025-08-13 12:44 | XMS_ITS | Clinical Summary ---
Author Organization [facility] Address Counts include 234 beds at the [facility] [employer] [place] [address] [place] [address] Phone Care Team Providers Care Fbi Special Agent Name Role Phone Anjelica Clarke MD Unavailable Roberto Carlos Hancock NP Primary Care Provider + Allergies Active Allergy Reactions Criticality Noted Date Comments Sulfa (Sulfonamide Antibiotics) GI Upset Medium 10/2014 Medications calcium acetate (PHOSLO) 667 mg (169 mg elemental) capsule CALCIUM ACETATE ( 1 NWMDBY=093 MG) ; Dose: Not available; Form: Not available; Route: PO; Frequency: Not available; Directions: As directed; Details: Dispense: Capsule(s); Taking; Status: Active; Source: KERRY LOPEZ M.D.; Date: 03/24/2015 5 Active Ca cmb no.1-W0-L-6-[id number]- F30-ngrx 120-1,000-10 mg-unit-mg Tab VITAMIN D3 (CHOLECALCIFEROL ); [...] nuclear cataract of right eye 09/12/2017 09/12/2017 Family History Medical History Relation Comments Uncoded [...] st Contact Info) Description 05/12/2025 Procedure Pass [address] [address] 12/27/2025 1:00 PM EDT Appointment [address] [address] Roberto Carlos Hancock NP [facility] [place] [address] 01/13/2026 10:30 AM EDT Office Visit [facility] [address] [facility] 12th [place] [address] Gege Cedeno MD [address] [place] [address] [email or web address] Health Maintenance Due Date Last Done Comments Adult Td,Tdap Booster 1941 DEPRESSION SCREENING 1953 PNEUMOCOCCAL VACCINES (50+ years) (1 of 2 - PCV) 1960 ZOSTER VACCINES (1 of 2) 1960 OSTEOPOROSIS SCREENING INITIAL (ONE-TIME) 2006 RSV VACCINE (1 - 1-dose 75+ series) 2016 POTASSIUM LEVEL 10/02/2018 10/02/2017, 0811/2014, 04/12/2015, Additional history exists INFLUENZA VACCINE (#1) [...] this topic Medical Devices Implanted Type Area Wafer Fab Operator Device Identifier Shelf Expiration Date Model / Serial / Lot Metal Description:Metal rings R. e ye and R. hip Iol Acrysof Iq [id number] 20.5d - [id number] Implanted:Qty: 1 on 09/12/2017 by Agnieszka Shen MD at [facility] Right: Eye JOHN PAUL 07/23/2021 / [id number] / Procedures Procedure Name Priority Date/Time Associated Diagnosis Comments COMPREHENSIVE METABOLIC PANEL (CMP) Routine 10/02/2017 12:17 PM EST Abdominal pain, left lower quadrant from Last 3 Months or Most Recently Relevant to Health Maintenance Results * Comprehensive metabolic panel (10/02/2017 12:17 PM EST) SODIUM 142 133 - 146 mmol/L [facility] POTASSIUM 4.5 3.3 - 5.1 mmol/L [facility] CHLORIDE 102 96 - 108 mmol/L [facility] CO2 30 21 - 35 mmol/L [facility] BUN 18 6 - 19 mg/dL [facility] CREATININE 0.60 0.5 - 1.5 mg/dL [facility] GLUCOSE 95 70 - 99 mg/dL [facility] ALBUMIN 4.5 3.9 - 4.8 g/dL [facility] TOTAL PROTEIN 7.4 6.5 - 8.0 g/dL [facility] CALCIUM 9.8 8.4 - 10.3 mg/dL [facility] ALKALINE PHOSPHATASE 63 39 - 117 U/L [facility] TOTAL BILIRUBIN 0.4 0 - 1.2 mg/dL [facility] AST 19 0 - 37 U/L [facility] ALT 10 0 - 40 U/L [facility] GLOBULIN 2.9 1 - 4.8 g/dL [facility] EGFR >60 mL/min/1.7 3m2 [facility] Comment:Abnormal if <60. If patient is -Tong[place], multiply the result by 1.21. ANION GAP 15 10 - 20 mmol/L [facility] Blood 10/02/2017 12:1 7 PM EST 10/02/2017 12:20 PM EST us [facility] NUR LAB BLOOD BKR ORDERABLES Fi nal Result [address] [address] from Last 3 Months or Most Recently Relevant to Health Maintenance Insurance MEDICARE PART A & B Member Subscriber Plan / Payer (Ef fective 2006-Present) Name:Irene Porter Member ID:[id number] Relation to Subscriber:Self Name:Irene Porter Subscriber ID:[id number] Payer ID:[id number] Group ID:Not on file Type:Medicare Address: [facility] [employer] [facility]. [address] [place] [address] [facility] MEDICARE SUPPLEMENT MEDICARE PART A & B [facility] MEDICARE SUPPLEMENT MEDICARE PART A & B Member Subscriber Plan / Payer (Ef fective 2006-Present) Name:CharlotteIreneSnehal Member ID:[id number] Relation to Subscriber:Self Name:Irene Porter Subscriber ID:[id number] Payer ID:[id number] Group ID:Not on file Type:Medicare Address: [facility] [address] [place] [id number] [facility] MEDICARE SUPPLEMENT MEDICARE PART A & B [facility] MEDICARE SUPPLEMENT MEDICARE PART A & B [id number] [place] [address] MEDICARE SUPPLEMENT MEDICARE PART A & B [facility] MEDICARE SUPPLEMENT MEDICARE PART A & B [facility] MEDICARE SUPPLEMENT MEDICARE PART A & B [facility] [place] [id number] MEDICARE PART A & B [facility] MEDICARE SUPPLEMENT Advance Directives For more information, please contact: [phone] (9AM - 5PM Magda/[facility], Saturday-Saturday) Documents on File Type Date Recorded Patient Manager Net Expl anation Healthcare Proxy 09/13/2017 11:05 AM * Full Code (Presumed) (Latest Code Status on File) Date Activated Date Inactivated Comments 09/12/2017 10:13 AM 09/12/2017 2:23 PM Care Teams Fbi Special Agent Relationship Specialty Start Date End Date Roberto Carlos Hancock NP [address] [place] [address] [place] [address] PCP - General Nurse Practitioner 05/12/25 Anjelica Clarke MD [address] [place] [address] SONU [place] [address] Internal Medicine 01/08/19 Additional Source Comments The information contained in this document represents components of the legal health record. It is not the complete legal health record.[facility]
--- OUTSIDE RECORDS SUMMARY | 2025-08-13 12:44 | XMS_ITS | Encounter Summary ---
Author Organization [facility] Address [address] [place] [address] Phone Care Team Providers Care Flexible Machining System Machinist Name Role Phone Anjelica Clarke MD Unavailable [phone] Anjelica Clarke MD Primary Care Provider [phone] Roberto Carlos Hancock NP Primary Care Provider + Encounter Details Date Type Department Care Team (Late st Contact Info) Description 04/13/2024 Procedure Pass [facility], [address] [id number] Social History Tobacco Use Types Packs/Day Years [...] Contact Info) Description 05/12/2025 Procedure Pass [address] [address] 12/27/2025 1:00 PM EDT Appointment [address] [address] Roberto Carlos Hancock NP [address] [place] [address] [place] [address] 01/13/2026 10:30 AM EDT Office Visit [address] 12th [place] [address] Gege Cedeno MD [address] [place] [address] [email or web address] documented as of this encounter Visit Diagnoses Not on filedocumented in this encounter Care Teams Flexible Machining System Machinist Relationship Specialty Start Date End Date Anjelica Clarke MD [address] [place] [address] PCP - General Internal Medicine 05/31/20 05/11/25 Roberto Carlos Hancock NP [address] [place] [address] [place] [address] PCP - General Nurse Practitioner 05/12/25 Anjelica Clarke MD [address] [place] [address] [place] Internal Medicine 01/08/19 documented as of this encounter Additional Source Comments The information contained in this document represents components of the legal health record. It is not the complete legal health record.[facility]
--- OUTSIDE RECORDS SUMMARY | 2025-08-13 12:44 | XMS_ITS | Encounter Summary ---
Author Organization [facility] Address [address] [place] [address] Phone Care Team Providers Care Mission Analyst Name Role Phone Anjelica Clarke MD Unavailable [phone] Roberto Carlos Hancock NP Primary Care Provider + Encounter Details Date Type Department Care Team (Late st Contact Info) Description 05/12/2025 Transcribe Orders Virtual Department [address] [place] [address] Roberto Carlos Hancock NP [facility] [place] [address] Breast screening (Primary Dx) Social History Tobacco [...] st Contact Info) Description 05/12/2025 Procedure Pass [address] [address] 12/27/2025 1:00 PM EDT Appointment [address] [address] Roberto Carlos Hancock NP [address] [facility] [address] Lord [place] [address] 01/13/2026 10:30 AM EDT Office Visit [address] 12th [place] [address] Gege Cedeno MD [address] [place] [address] [email or web address] Scheduled Orders Name Type Priority Associated Diagnoses Orde r Schedule Mammogram Screening (Bilateral) Imaging Routine Breast screening Expected: 06/12/2025, Expires: 05/12/2026 documented as of this encounter Visit Diagnoses Diagnosis Breast screening- Primary Breast screening, unspecified documented in this encounter Care Teams Mission Analyst Relationship Specialty Start Date End Date Roberto Carlos Hancock NP [address] [place] [address] Dr Lord [place] [address] PCP - General Nurse Practitioner 05/12/25 Anjelica Clarke MD [address] [place] [address] [place] [address] Internal Medicine 01/08/19 documented as of this encounter Additional Source Comments The information contained in this document represents components of the legal health record. It is not the complete legal health record.[facility]
[2025-08-13 14:03] LABS: MANUAL DIFF FLAG NO
[2025-08-13 14:15] LABS: Hematocrit 41.2 % (37.0-47.0); Hemoglobin 13.3 g/dl (12.0-16.0); Imm Gran Abs Auto 0.02 X10*3/uL (0.00-0.03); Imm Gran Pct Auto 0.4 % (0.0-0.4); Lymphocytes Absolute Auto 1.8 X10*3/uL (1.2-4.9); Mean Corpuscular HGB Conc 32.3 g/dl (31.0-35.0); Mean Corpuscular Hemoglobin 29.5 pg (27.0-33.0); Mean Corpuscular Volume 91.4 fL (80.0-98.0); NRBC Abs Auto 0.000 X10*3/uL (0.0-0.012); NRBC Pct Auto 0.0 /100WBC (0.0-0.2); Platelet Count 275 X10*3/uL (160-400); Red Blood Count 4.51 X10*6/uL (4.20-5.50); White Blood Count 5.1 X10*3/uL (4.8-10.8)
[2025-08-13 14:46] LABS: Alanine Aminotransferase 17 U/L (0-31); Albumin Level 4.5 g/dL (3.5-5.0); Alkaline Phosphatase 42 U/L (39-117); Anion Gap 11 (12-20); Aspartate Amino Transferase 23 U/L (5-31); Blood Urea Nitrogen 21 mg/dL (9-16); Calcium 9.0 mg/dL (8.4-10.2); Carbon Dioxide 31 mmol/L (22-29); Chloride 104 mmol/L (96-108); Cholesterol 211 mg/dL (<200); Estimated Glomerular Filt Rate > 60; HDL Cholesterol 48 mg/dL (>40); Potassium 3.4 mmol/L (3.3-5.1); Sodium 143 mmol/L (135-145); Total Protein 7.0 g/dL (6.5-8.0); Triglycerides 113 mg/dL (<150)
[2025-08-13 15:04] LABS: Thyroid Stimulating Hormone 1.34 uIU/mL (0.32-4.0)
== END 2025-08-13 12:12 | disposition home or self-care (01) ==
LOC: HO.HMGCLDS 12:11
PROVIDERS: PCP Nurse Practitioner Family; Visit Provider Nurse Practitioner Family
DX: E78.5 Hyperlipidemia, unspecified (principal); Z13.21 Encounter for screening for nutritional disorder
CPT/HCPCS: 36415; 80053; 80061; 82306; 84443; 85025

== ENCOUNTER 2025-08-17 13:45 | Outpatient (REF) | payer MEDICARE, SELFPAY ==
[2025-08-17 16:08] LABS: Appearance Urine Clear; Glucose Urine UA Negative (Negative); PH 5.5 (5.0-9.0); Specific Gravity - Urine 1.025 (1.005-1.025); UMIC TRIGGER UACC YES
[2025-08-17 16:23] LABS: UACC Culture Trigger YES
--- OUTSIDE RECORDS SUMMARY | 2025-08-17 18:45 | XMS_ITS | Encounter Summary ---
Author Organization [facility] Address [facility] [employer] [facility] [address] [place] [address] Phone Care Team Providers Care Concrete Boom Pump Operator Name Role Phone Niels Sams MD Primary Care Provider [phone] Anjelica Clarke MD Unavailable [phone] Unknown, Unknown Primary Care Provider Anjelica Fajardo MD Primary Care Provider [phone] Roberto Carlos Hancock NP Primary Care Provider + Encounter Details Date Type Department Care Team (Late st Contact Info) Description 12/16/2017 Ancillary Orders [facility] External Provider Virtual Department [address] [place] [address] Calos Valiente MD [address] [place] [address] [email or web address] Social History Tobacco Use Types Packs/Day Years [...] Contact Info) Description 05/12/2025 Procedure Pass [address] [address] 12/27/2025 1:00 PM EDT Appointment [address] [address] Roberto Carlos Hancock NP [address] [facility] Dr Lord [place] 01/13/2026 10:30 AM EDT Office Visit [address] [address] Gege Cedeno MD [address] [place] [address] [email or web address] documented as of this encounter Visit Diagnoses Not on filedocumented in this encounter Care Teams Concrete Boom Pump Operator Relationship Specialty Start Date End Date Niels Sams MD [email or web address] PCP - General Family Medicine 12/16/17 01/07/19 Unknown, MD Nataly [address] [place], [place] PCP - General 01/08/19 05/30/20 Anjelica Clarke MD [facility] [place], [place] PCP - General Internal Medicine 05/31/20 05/11/25 Roberto Carlos Hancock NP [facility] Dr Lord [place] PCP - General Nurse Practitioner 05/12/25 Anjelica Clarke MD [address] [place] [address] Internal Medicine 01/08/19 documented as of this encounter Additional Source Comments The information contained in this document represents components of the legal health record. It is not the complete legal health record.[facility]
--- OUTSIDE RECORDS SUMMARY | 2025-08-17 18:45 | XMS_ITS | Encounter Summary ---
Author Organization [facility] Address [facility] [employer] [facility] [address] [place] [address] Phone Care Team Providers Care Hide And Skin Processing Worker Name Role Phone Calos Valiente MD Primary Care Provider [phone] Niels Sams MD Primary Care Provider [phone] Anjelica Clarke MD Unavailable [phone] Unknown, Unknown Primary Care Provider Anjelica Fajardo MD Primary Care Provider [phone] Roberto Carlos Hancock NP Primary Care Provider + Encounter Details Date Type Department Care Team (Late st Contact Info) Description 09/08/2017 Prep for Surgery [address] [address] Agnieszka Shen MD [address] [place] [address] [email or web address] Combined form of senile cataract of [...] st Contact Info) Description 05/12/2025 Procedure Pass [address] [address] 12/27/2025 1:00 PM EDT Appointment [address] [address] Roberto Carlos Hancock NP [facility] [place] 01/13/2026 10:30 AM EDT Office Visit [address] [place] [address] Gege Cedeno MD [address] [place] [address] [email or web address] documented as of this encounter Visit Diagnoses Diagnosis 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 documented in this encounter Care Teams Hide And Skin Processing Worker Relationship Specialty Start Date End Date Calos Valiente MD [address] [place] [address] [email or web address] PCP - General Family Medicine 09/04/17 12/15/17 Niels Sams MD [address] [place] [address] [email or web address] PCP - General Family Medicine 12/16/17 01/07/19 Nataly, MD Nataly [address] [place], [place] PCP - General 01/08/19 05/30/20 Anjelica Clarke MD [facility] [place], [place] PCP - General Internal Medicine 05/31/20 05/11/25 Roberto Carlos Hancock NP [facility] [place] [address] PCP - General Nurse Practitioner 05/12/25 Anjelica Clarke MD [facility] [place] [address] Internal Medicine 01/08/19 documented as of this encounter Additional Source Comments The information contained in this document represents components of the legal health record. It is not the complete legal health record.[facility]
--- OUTSIDE RECORDS SUMMARY | 2025-08-17 18:45 | XMS_ITS | Encounter Summary ---
Author Organization [facility] Address [facility] [address] [place] [address] Phone Care Team Providers Care Robotics Specialist Name Role Phone Anjelica Clarke MD Unavailable [phone] Anjelica Clarke MD Primary Care Provider [phone] Roberto Carlos Hancock NP Primary Care Provider + Encounter Details Date Type Department Care Team (Late st Contact Info) Description 06/01/2020 Procedure Pass [address] [address] Social History Tobacco Use Types Packs/Day Years [...] Contact Info) Description 05/12/2025 Procedure Pass [address] [address] 12/27/2025 1:00 PM EDT Appointment [address] [address] Roberto Carlos Hancock NP [address] [place] [address] [place] [address] 01/13/2026 10:30 AM EDT Office Visit [facility] [address] [place] [address] Gege Cedeno MD [address] [place] [address] [email or web address] documented as of this encounter Visit Diagnoses Not on filedocumented in this encounter Care Teams Robotics Specialist Relationship Specialty Start Date End Date Anjelica Clarke MD [address] [place] [address] PCP - General Internal Medicine 05/31/20 05/11/25 Roberto Carlos Hancock NP [address] [place] [address] [place] [address] PCP - General Nurse Practitioner 05/12/25 Anjelica Clarke MD [address] [place] [address] Internal Medicine 01/08/19 documented as of this encounter Additional Source Comments The information contained in this document represents components of the legal health record. It is not the complete legal health record.[facility]
--- OUTSIDE RECORDS SUMMARY | 2025-08-17 18:45 | XMS_ITS | Encounter Summary ---
Author Organization [facility] Address [address] [facility] [address] [place] [address] Phone Care Team Providers Care Lease Examiner Name Role Phone Anjelica Clarke MD Unavailable [phone] Anjelica Clarke MD Primary Care Provider [phone] Roberto Carlos Hancock NP Primary Care Provider + Encounter Details Date Type Department Care Team (Late st Contact Info) Description 03/23/2022 Transcribe Orders Virtual Department 30 [place] [address] Anjelica Clarke MD [facility]2 [place] [address] Encounter for screening mammogram for malignant neoplasm [...] Contact Info) Description 05/12/2025 Procedure Pass [address] [address] 12/27/2025 1:00 PM EDT Appointment [address] [address] Roberto Carlos Hancock NP [address] [facility] [place] [address] 01/13/2026 10:30 AM EDT Office Visit [facility] 243 [facility] 12th [place] [address] Gege Cedeno MD [address] [place] [address] [email or web address] documented as of [...] breast documented in this encounter Care Teams Lease Examiner Relationship Specialty Start Date End Date Anjelica Clarke MD [address] [place] [address] PCP - General Internal Medicine 05/31/20 05/11/25 Roberto Carlos Hancock NP [address] [place] [address] [place] [address] PCP - General Nurse Practitioner 05/12/25 Anjelica Clarke MD [address] [place] [address] Internal Medicine 01/08/19 documented as of this encounter Additional Source Comments The information contained in this document represents components of the legal health record. It is not the complete legal health record.[facility]
--- OUTSIDE RECORDS SUMMARY | 2025-08-17 18:45 | XMS_ITS | Encounter Summary ---
Author Organization [facility] Address [address] [place] [address] Phone Care Team Providers Care Photographic Reproduction Technician Name Role Phone Anjelica Clarke MD Unavailable [phone] Anjelica Clarke MD Primary Care Provider [phone] Roberto Carlos Hancock NP Primary Care Provider + Encounter Details Date Type Department Care Team (Late st Contact Info) Description 04/05/2023 Procedure Pass [facility], [address] [id number] Social History Tobacco Use Types Packs/Day Years [...] st Contact Info) Description 05/12/2025 Procedure Pass [address] [address] 12/27/2025 1:00 PM EDT Appointment [address] [address] Roberto Carlos Hancock NP [address] [place] [address] [place] [address] 01/13/2026 10:30 AM EDT Office Visit [address] 12th [place] [address] Gege Cedeno MD [address] [place] [address] [email or web address] documented as of this encounter Visit Diagnoses Not on filedocumented in this encounter Care Teams Photographic Reproduction Technician Relationship Specialty Start Date End Date Anjelica Clarke MD [address] [place] [address] PCP - General Internal Medicine 05/31/20 05/11/25 Roberto Carlos Hancock NP [address] [place] [address] [place] [address] PCP - General Nurse Practitioner 05/12/25 Anjelica Clarke MD [address] [place] [address] [place] Internal Medicine 01/08/19 documented as of this encounter Additional Source Comments The information contained in this document represents components of the legal health record. It is not the complete legal health record.[facility]
--- OUTSIDE RECORDS SUMMARY | 2025-08-17 18:45 | XMS_ITS | Clinical Summary ---
Author Organization [facility] Address [facility] [employer] [facility] [address] [place] [address] Phone Care Team Providers Care Fuse Spooler Name Role Phone Anjelica Clarke MD Unavailable [phone] Roberto Carlos Hancock NP Primary Care Provider + Allergies Active Allergy Reactions Criticality Noted Date Comments Sulfa (Sulfonamide Antibiotics) GI Upset Medium 10/2014 Medications calcium acetate (PHOSLO) 667 mg (169 mg elemental) capsule CALCIUM ACETATE ( 1 YTCSRN=595 MG) ; Dose: Not available; Form: Not available; Route: PO; Frequency: Not available; Directions: As directed; Details: Dispense: Capsule(s); Taking; Status: Active; Source: KERRY LOPEZ M.D.; Date: 03/24/2015 5 Active Ca cmb [id number] 120-1,000-10 mg-unit-mg Tab VITAMIN D3 (CHOLECALCIFEROL ); [...] Contact Info) Description 05/12/2025 [address] [address] 12/27/2025 1:00 PM EDT Appointment [address] [address] Roberto Carlos Hancock NP [facility] [place] [address] 01/13/2026 10:30 AM EDT Office Visit [facility] 243 [facility] 12th [place] [address] Gege Cedeno MD [address] [place] [address] [email or web address] Health Maintenance Due Date Last Done [...] this topic Medical Devices Implanted Type Area Practice Or Student Teacher Device Identifier Shelf Expiration Date Model / Serial / Lot Metal Description:Metal rings R. e ye and R. hip Iol Acrysof Iq [id number] 20.5d - [id number] Implanted:Qty: 1 on 09/12/2017 by Agnieszka Shen MD at [facility] Right: Eye JOHN PAUL 07/23/2021 / [id number] / Procedures Procedure Name Priority Date/Time Associated Diagnosis Comments COMPREHENSIVE METABOLIC PANEL (CMP) Routine 10/02/2017 12:17 PM EST Abdominal pain, left lower quadrant from Last 3 Months or Most Recently Relevant to Health Maintenance Results * Comprehensive metabolic panel (10/02/2017 12:17 PM EST) SODIUM 142 133 - 146 mmol/L [facility] POTASSIUM 4.5 3.3 - 5.1 mmol/L [facility] CHLORIDE 102 96 - 108 mmol/L [facility] CO2 30 21 - 35 mmol/L [facility] BUN 18 6 - 19 mg/dL [facility] CREATININE 0.60 0.5 - 1.5 mg/dL [facility] GLUCOSE 95 70 - 99 mg/dL [facility] ALBUMIN 4.5 3.9 - 4.8 g/dL [facility] TOTAL PROTEIN 7.4 6.5 - 8.0 g/dL [facility] CALCIUM 9.8 8.4 - 10.3 mg/dL [facility] ALKALINE PHOSPHATASE 63 39 - 117 U/L [facility] TOTAL BILIRUBIN 0.4 0 - 1.2 mg/dL [facility] AST 19 0 - 37 U/L [facility] ALT 10 0 - 40 U/L [facility] GLOBULIN 2.9 1 - 4.8 g/dL [facility] EGFR >60 mL/min/1.7 3m2 [facility] Comment:Abnormal if <60. If patient is -Senegalese, multiply the result by 1.21. ANION GAP 15 10 - 20 mmol/L [facility] Blood 10/02/2017 12:1 7 PM EST 10/02/2017 12:20 PM EST us Madina NUR LAB BLOOD BKR ORDERABLES Fi nal Result [address] [address] from Last 3 Months or Most Recently Relevant to Health Maintenance Insurance MEDICARE PART A & B [facility] MEDICARE SUPPLEMENT MEDICARE PART A & B [facility] MEDICARE SUPPLEMENT MEDICARE PART A & B Member Subscriber Plan / Payer (Ef fective 2006-Present) Name:CharlotteIreneSnehal Member ID:[id number] Relation to Subscriber:Self Name:Irene Porter Subscriber ID:[id number] Payer ID:[id number] Group ID:Not on file Type:Medicare Address: [employer] [address] [place] [id number] [facility] MEDICARE SUPPLEMENT MEDICARE PART A & B [facility] MEDICARE SUPPLEMENT MEDICARE PART A & B [id number] [place] [address] MEDICARE SUPPLEMENT MEDICARE PART A & B [facility] MEDICARE SUPPLEMENT MEDICARE PART A & B [facility] MEDICARE SUPPLEMENT MEDICARE PART A & B [facility] [place] [id number] MEDICARE PART A & B [facility] MEDICARE SUPPLEMENT Advance Directives For more information, please contact: [phone] (9AM - 5PM Magda/[facility], Saturday-Saturday) Documents on File Type Date Recorded Patient Bowling Ball Marker Expl anation Healthcare Proxy 09/13/2017 11:05 AM * Full Code (Presumed) (Latest Code Status on File) Date Activated Date Inactivated Comments 09/12/2017 10:13 AM 09/12/2017 2:23 PM Care Teams Fuse Spooler Relationship Specialty Start Date End Date Roberto Carlos Hancock NP [address] [place] [address] [place] [address] PCP - General Nurse Practitioner 05/12/25 Anjelica Clarke MD [address] [place] [address] SONU LORD [address] Internal Medicine 01/08/19 Additional Source Comments The information contained in this document represents components of the legal health record. It is not the complete legal health record.[facility]
--- OUTSIDE RECORDS SUMMARY | 2025-08-17 18:45 | XMS_ITS | Encounter Summary ---
Author Organization [facility] Address [address] [place] [address] [place] [address] Phone Care Team Providers Care Relay Man Name Role Phone Unknown, Unknown Primary Care Provider Calos Whitt MD Primary Care Provider [phone] Niels Sams MD Primary Care Provider [phone] Anjelica Clarke MD Unavailable [phone] Unknown, Unknown Primary Care Provider Anjelica Fajardo MD Primary Care Provider [phone] Roberto Carlos Hancock NP Primary Care Provider + Reason for Referral * MRI/CAT Scan - Closed Specialty Diagnoses / Procedures Referred By Contac t Referred To Contact Radiology Diagnoses Abdominal pain, left lower quadrant Procedures CT Abdomen/Pelvis Madina Bernal PA Phone: tel: fax: Referral ID Status Reason Start Date Expiration Date Visits Re quested Visits Authorized [id number] Closed 08/27/2017 08/27/2018 1 1 Encounter Details Date Type Department Care Team (Late st Contact Info) Description 08/27/2017 Ancillary Orders [facility] External Provider Virtual Department 30 [place] [address] Madina Bernal PA [address] [place] [address] Abdominal pain, left lower quadrant Social History [...] st Contact Info) Description 05/12/2025 Procedure Pass [address] [address] 12/27/2025 1:00 PM EDT Appointment [address] [address] Roberto Carlos Hancock, SIMON [address] [place] [address] [place] [address] 01/13/2026 10:30 AM EDT Office Visit [address] [address] Gege Cedeno MD [address] [place] [address] [email or web address] documented as of this encounter Results [...] quadrant documented in this encounter Care Teams Relay Man Relationship Specialty Start Date End Date Unknown, Unknown, MD PCP - General 05/30/17 09/03/17 Calos Valiente MD [address] [place] [address] [email or web address] PCP - General Family Medicine 09/04/17 12/15/17 Niels Sams MD [address] [place] [address] [email or web address] PCP - General Family Medicine 12/16/17 01/07/19 Unknown, Unknown, MD PCP - General 01/08/19 05/30/20 Anjelica Clarke MD [address] [place] [address] PCP - General Internal Medicine 05/31/20 05/11/25 Roberto Carlos Hancock NP [address] [place] [address] PCP - General Nurse Practitioner 05/12/25 Anjelica Clarke MD [address] [place] [address] Internal Medicine 01/08/19 documented as of this encounter Additional Source Comments The information contained in this document represents components of the legal health record. It is not the complete legal health record.[facility]
--- OUTSIDE RECORDS SUMMARY | 2025-08-17 18:45 | XMS_ITS | Encounter Summary ---
Author Organization [facility] Address [facility] [employer] [facility] [address] [place] [address] Phone Care Team Providers Care Stock Mover Name Role Phone Anjelica Clarke MD Unavailable [phone] Anjelica Clarke MD Primary Care Provider [phone] Roberto Carlos Hancock NP Primary Care Provider + Encounter Details Date Type Department Care Team (Late st Contact Info) Description 03/23/2022 Procedure Pass [address] [address] Social History Tobacco Use Types Packs/Day Years [...] Contact Info) Description 05/12/2025 Procedure Pass [address] [address] 12/27/2025 1:00 PM EDT Appointment [address] [address] Roberto Carlos Hancock NP [address] [place] [address] [place] [address] 01/13/2026 10:30 AM EDT Office Visit [facility] [address] 12[address] [place] [address] Gege Cedeno MD [address] [place] [address] [email or web address] documented as of this encounter Visit Diagnoses Not on filedocumented in this encounter Care Teams Stock Mover Relationship Specialty Start Date End Date Anjelica Clarke MD [address] [place] [address] PCP - General Internal Medicine 05/31/20 05/11/25 Roberto Carlos Hancock NP [address] [place] [address] [place] [address] PCP - General Nurse Practitioner 05/12/25 Anjelica Clarke MD [address] [place] [address] Internal Medicine 01/08/19 documented as of this encounter Additional Source Comments The information contained in this document represents components of the legal health record. It is not the complete legal health record.[facility]
--- OUTSIDE RECORDS SUMMARY | 2025-08-17 18:45 | XMS_ITS | Encounter Summary ---
Author Organization [facility] Address [address] [employer] [facility] [address] [place] [address] Phone Care Team Providers Care Burner Operator Name Role Phone Anjelica Clarke MD Unavailable [phone] Anjelica Clarke MD Primary Care Provider [phone] Roberto Carlos Hancock NP Primary Care Provider + Encounter Details Date Type Department Care Team (Late st Contact Info) Description 04/03/2024 Telephone [facility] [address] [place] [address] Gege Cedeno MD [address] [place] [address] [email or web address] Social History Tobacco Use [...] Contact Info) Description 05/12/2025 Procedure Pass [address] [address] 12/27/2025 1:00 PM EDT Appointment [address] [address] Roberto Carlos Hancock NP [address] [place] [address] [place] [address] 01/13/2026 10:30 AM EDT Office Visit [facility] [address] [place] [address] Gege Cedeno MD [address] [place] [address] [email or web address] documented as of this encounter Visit Diagnoses Not on filedocumented in this encounter Care Teams Burner Operator Relationship Specialty Start Date End Date Anjelica Clarke MD [address] [place] [address] PCP - General Internal Medicine 05/31/20 05/11/25 Roberto Carlos Hancock NP [address] [place] [address] [place] [address] PCP - General Nurse Practitioner 05/12/25 Anjelica Clarke MD [address] [place] [address] Internal Medicine 01/08/19 documented as of this encounter Additional Source Comments The information contained in this document represents components of the legal health record. It is not the complete legal health record.[facility]
--- OUTSIDE RECORDS SUMMARY | 2025-08-17 18:45 | XMS_ITS | Encounter Summary ---
Author Organization [facility] Address [facility] [employer] [facility] [address] [place] [address] Phone Care Team Providers Care Self Defense Instructor Name Role Phone Anjelica Clarke MD Unavailable [phone] Unknown, Unknown Primary Care Provider Anjelica Fajardo MD Primary Care Provider [phone] Roberto Carlos Hancock NP Primary Care Provider + Encounter Details Date Type Department Care Team (Late st Contact Info) Description 05/24/2020 Procedure Pass [address] [address] Social History Tobacco Use Types Packs/Day Years [...] st Contact Info) Description 05/12/2025 Procedure Pass [address] [address] 12/27/2025 1:00 PM EDT Appointment [facility] 30 [place] [address] Roberto Carlos Hancock NP [address] [facility] [address] [place] 01/13/2026 10:30 AM EDT Office Visit [facility] 243 [facility] 12th [place] [address] Gege Cedeno MD [address] [place] [address] [email or web address] documented as of this encounter Visit Diagnoses Not on filedocumented in this encounter Care Teams Self Defense Instructor Relationship Specialty Start Date End Date Unknown, Unknown, MD [address] [place], [place] PCP - General 01/08/19 05/30/20 Anjelica Clarke MD [address] [place] [address] PCP - General Internal Medicine 05/31/20 05/11/25 Roberto Carlos Hancock NP [facility] [address] [place] PCP - General Nurse Practitioner 05/12/25 Anjelica Clarke MD [address] [place] [address] Internal Medicine 01/08/19 documented as of this encounter Additional Source Comments The information contained in this document represents components of the legal health record. It is not the complete legal health record.[facility]
--- OUTSIDE RECORDS SUMMARY | 2025-08-17 18:45 | XMS_ITS | Encounter Summary ---
Author Organization [facility] Address [facility] [employer] [address] [address] Phone Care Team Providers Care Retail Analyst Name Role Phone Niels Sams MD Primary Care Provider [phone] Anjelica Clarke MD Unavailable [phone] Unknown, Unknown Primary Care Provider Anjelica Fajardo MD Primary Care Provider [phone] Roberto Carlos Hancock NP Primary Care Provider + Encounter Details Date Type Department Care Team (Late st Contact Info) Description 12/16/2017 Ancillary Orders [facility] External Provider Virtual Department 30 [place] [address] Niels Sams MD [address] [place] [address] [email or web address] Breast screening Social History Tobacco Use Types [...] st Contact Info) Description 05/12/2025 Procedure Pass [address] [address] 12/27/2025 1:00 PM EDT Appointment [address] [address] Roberto Carlos Hancock, SIMON [facility]2 [facility] [place] [address] 01/13/2026 10:30 AM EDT Office Visit [facility] [address] [address] Gege Cedeno MD [address] [place] [address] [email or web address] documented as of this [...] lowers the sensitivity of mammography. POS - [id number] Narrative 01/27/2018 12:49 PM EDT Full-field digital [...] whichlowers the sensitivity of mammography. POS - [id number] Niels Sams MD IMG MG EXAMS Final Result documented in this encounter Visit Diagnoses Diagnosis Breast screening Breast screening, unspecified Breast screening Breast screening, unspecified documented in this encounter Care Teams Retail Analyst Relationship Specialty Start Date End Date Niels Sams MD PCP - General Family Medicine 12/16/17 01/07/19 Unknown, Nataly, [address] [place] [address] [facility] [place] PCP - General 01/08/19 05/30/20 Anjelica Clarke MD [facility] [place] PCP - General Internal Medicine 05/31/20 05/11/25 Roberto Carlos Hancock NP [address] [place] [address] [place] PCP - General Nurse Practitioner 05/12/25 Anjelica Clarke MD [address] [place] [address] Internal Medicine 01/08/19 documented as of this encounter Additional Source Comments The information contained in this document represents components of the legal health record. It is not the complete legal health record.[facility]
--- OUTSIDE RECORDS SUMMARY | 2025-08-17 18:45 | XMS_ITS | Encounter Summary ---
Author Organization [facility] Address [address] [facility] [address] [place] [address] Phone Care Team Providers Care Program Coordinator Name Role Phone Anjelica Clarke MD Unavailable Unknown, Unknown Primary Care Provider Anjelica Fajardo MD Primary Care Provider [phone] Roberto Carlos Hancock NP Primary Care Provider + Encounter Details Date Type Department Care Team (Late st Contact Info) Description 11/06/2019 Ancillary Orders Virtual Department 30 [place] [address] Anjelica Clarke MD [facility] [place] [address] Breast screening Social History Tobacco Use Types [...] Info) Description 05/12/2025 Procedure Pass [facility] [address] [address] 12/27/2025 1:00 PM EDT Appointment [address] [address] Roberto Carlos Hancock NP [address] [facility] [place] [address] 01/13/2026 10:30 AM EDT Office Visit [facility] 243 [facility] 12th [place] [address] Gege Cedeno MD [address] [place] [address] [email or web address] documented as [...] unspecified documented in this encounter Care Teams Program Coordinator Relationship Specialty Start Date End Date Unknown, Unknown, MD [address] [place], [place] PCP - General 01/08/19 05/30/20 Anjelica Clarke MD [facility] [place], [place] PCP - General Internal Medicine 05/31/20 05/11/25 Roberto Carlos Hancock NP [facility] [place], [place] PCP - General Nurse Practitioner 05/12/25 Anjelica Clarke MD [address] [place] [address] Internal Medicine 01/08/19 documented as of this encounter Additional Source Comments The information contained in this document represents components of the legal health record. It is not the complete legal health record.[facility]
--- OUTSIDE RECORDS SUMMARY | 2025-08-17 18:45 | XMS_ITS | Encounter Summary ---
Author Organization [facility] Address [address] [place] [address] Phone Care Team Providers Care Wrapper Stemmer Hand Name Role Phone Anjelica Clarke MD Unavailable [phone] Anjelica Clarke MD Primary Care Provider [phone] Roberto Carlos Hancock NP Primary Care Provider + Encounter Details Date Type Department Care Team (Late st Contact Info) Description 06/01/2020 Ancillary Orders [facility] Department [address] [place] [address] Anjelica Clarke MD [facility] [place] [place] [address] Abnormal mammogram Social History Tobacco Use Types [...] st Contact Info) Description 05/12/2025 Procedure Pass [facility] [address] [place] [address] 12/27/2025 1:00 PM EDT Appointment [facility] [address] [place] [address] Roberto Carlos Hancock, SIMON [facility] [place] [address] 01/13/2026 10:30 AM EDT Office Visit [facility] [address] [facility] 12th [place] [address] Gege Cedeno MD [address] [place] [address] [email or web address] documented as of this encounter Results * BI US BREAST LIMITED (RIGHT) (06/29/2020 1:58 PM EDT) Anatomical Region Laterality Modality Breast Right, Breast Bilateral Right U ltrasound 06/29/2020 1:53 PM EDT Narrative 06/29/2020 1:58 PM EDT Refer to the mammogram report. Procedure Note Danisha Desai MD - 06/29/2020 Refer to the mammogram report. Anjelica Clarke MD [facility] US BREAST Final Result * BI MAMMOGRAM [...] unspecified documented in this encounter Care Teams Wrapper Stemmer Hand Relationship Specialty Start Date End Date Anjelica Clarke MD [address] [place] [address] PCP - General Internal Medicine 05/31/20 05/11/25 Roberto Carlos Hancock NP [address] [facility] [place] [address] PCP - General Nurse Practitioner 05/12/25 Anjelica Clarke MD [facility] [place] [place] [address] Internal Medicine 01/08/19 documented as of this encounter Additional Source Comments The information contained in this document represents components of the legal health record. It is not the complete legal health record.[facility]
--- OUTSIDE RECORDS SUMMARY | 2025-08-17 18:45 | XMS_ITS | Patient Health Record ---
Author Organization [facility] Address [address] [place] [address] Care Team Providers Care Primary Care Physician Name Role Phone Anjelica Clarke MD Primary Care Provider Frank Mccoy [phone] Allergies Allergen (clinical drug ingredient) Drug/Non Drug [...] Status Risk Notes Problem Irritable bowel syndrome (88976755) Irritable bowel syndrome (K58.9) Active confirmed Problem Gastroesophageal reflux disease (824460645) Gastroesophageal reflux disease, esophagitis presence not specified (K21.9) Active confirmed Problem Hiatal hernia (34637654) Hiatal hernia (K44.9) Active confirmed Problem Constipation (49000335) Constipation, unspecified constipation type (K59.00) Active confirmed Problem Gastroesophageal reflux disease (301075467) GERD (gastroesophageal reflux disease) (K21.9) Active confirmed Problem Abnormal findings diagnostic imaging of liver and biliary tract (873251089) Abnormal gallbladder ultrasound (R93.2) Active confirmed Problem Left lower quadrant pain (656001121) Left lower quadrant abdominal pain (R10.32) Active confirmed Encounters Encounter Location Date Provider Diagnosis [facility] [address] [place] [address] 01/12/2025 Frank Avila Plan Of Treatment Future Test Test Name Order Date UPPER GI ENDOSCOPY 04/26/2020 Insurance Providers Payer Name Payer Address Payer Phone Subscriber Number Group Number Insured Name Patient Relationship to Insured Coverage Start Date Coverage End Date MEDICARE OF [place] [address] [facility] [place] [address] [phone] [id number] ROCIO HENSON Self - patient is the insured [facility] SUPPLEMENTAL PLAN [address] [place], [place] [id number] ROCIO HENSON Self - patient is the insured Medical (General) History Medical History History ICD Code Denies MD,DM,CVA,Lung disease,renal dise ase She reports three previous c olonoscopies with the [facility]'s--she reports a hx of colon [...] any sign of malignancy Partial thyroidectomy at [facility] in 2021 for benign lesion
--- OUTSIDE RECORDS SUMMARY | 2025-08-17 18:45 | XMS_ITS | Encounter Summary ---
Author Organization [facility] Address [facility] [address] [place] [address] Phone Care Team Providers Care Solar Energy Advisor Name Role Phone Calos Valiente MD Primary Care Provider [phone] Niels Sams MD Primary Care Provider [phone] Anjelica Clarke MD Unavailable [phone] Unknown, Unknown Primary Care Provider Anjelica Fajardo MD Primary Care Provider [phone] Roberto Carlos Hancock NP Primary Care Provider + Encounter Details Date Type Department Care Team (Latest Contact Info) Description 10/02/2017 Transcribe Orders [facility] Phleb Billie [address] [phone] Madina Bernal PA 10 [place] [address] Abdominal pain, left lower quadrant (Primary Dx) [...] st Contact Info) Description 05/12/2025 Procedure Pass [address] [address] 12/27/2025 1:00 PM EDT Appointment [address] [address] Roberto Carlos Hancock, SIMON [facility] [place] [address] 01/13/2026 10:30 AM EDT Office Visit [address] [address] Gege Cedeno MD [address] [place] [address] [email or web address] documented as of this encounter Results * C-Reactive Protein (10/02/2017 12:17 PM EST) C REACTIVE PROTEIN 0.1 0 - 0.5 mg/L [facility] Blood 10/02/2017 12:1 7 PM EST 10/02/2017 12:20 PM EST us Madina NUR LAB BLOOD BKR ORDERABLES Fi nal Result [address] [address] * Comprehensive metabolic panel (10/02/2017 12:17 PM EST) SODIUM 142 133 - 146 mmol/L [facility] POTASSIUM 4.5 3.3 - 5.1 mmol/L [facility] CHLORIDE 102 96 - 108 mmol/L [facility] CO2 30 21 - 35 mmol/L [facility] BUN 18 6 - 19 mg/dL [facility] CREATININE 0.60 0.5 - 1.5 mg/dL [facility] GLUCOSE 95 70 - 99 mg/dL [facility] ALBUMIN 4.5 3.9 - 4.8 g/dL [facility] TOTAL PROTEIN 7.4 6.5 - 8.0 g/dL [facility] CALCIUM 9.8 8.4 - 10.3 mg/dL [facility] ALKALINE PHOSPHATASE 63 39 - 117 U/L [facility] TOTAL BILIRUBIN 0.4 0 - 1.2 mg/dL [facility] AST 19 0 - 37 U/L [facility] ALT 10 0 - 40 U/L [facility] GLOBULIN 2.9 1 - 4.8 g/dL [facility] EGFR >60 mL/min/1.7 3m2 [facility] Comment:Abnormal if <60. If patient is -Spanish, multiply the result by 1.21. ANION GAP 15 10 - 20 mmol/L [facility] Blood 10/02/2017 12:1 7 PM EST 10/02/2017 12:20 PM EST us Madina NUR LAB BLOOD BKR ORDERABLES Fi nal Result [facility] [address] [place] [address] * CBC and differential (10/02/2017 12:17 PM EST) WBC 6.61 3.40 - 11.20 K/uL [facility] RBC 4.65 3.80 - 4.80 M/uL [facility] HGB 13.7 12.0 - 15.0 g/dL [facility] HCT 42.5 36.0 - 46.0 % [facility] PLT 268 130 - 400 K/uL [facility] MCV 91.4 79.0 - 98.0 fL [facility] MCH 29.5 27.0 - 34.8 pg [facility] MCHC 32.2 31.5 - 36.0 g/dL [facility] RDW 13.3 10.8 - 14.6 % [facility] MPV 10.4 9.4 - 12.4 fl [facility] NRBC 0.00 /100 WBCs [facility] ABSOLUTE NRBC 0.00 K/uL [facility] DIFF METHOD Auto [facility] NEUTS 56.3 45.30 - 77.70 % [facility] LYMPHS 34.5 12.30 - 39.70 % [facility] MONOS 7.1 4.10 - 12.80 % [facility] EOS 1.4 0 - 7.2 % [facility] BASOS 0.2 0 - 2.80 % [facility] Granulocytes, immature (%) 0.5 0.0 - 0.9 % [facility] ABSOLUTE NEUTS 3.73 1.40 - 7.70 K/uL [facility] ABSOLUTE LYMPHS 2.28 0.60 - 3.20 K/uL [facility] ABSOLUTE MONOS 0.47 0.11 - 0.59 K/uL [facility] ABSOLUTE EOS 0.09 0.01 - 0.50 K/uL [facility] ABSOLUTE BASOS 0.01 0.00 - 0.08 K/uL [facility] Granulocytes, immature 0.03 0.00 - 0.05 K/uL [facility] Blood 10/02/2017 12:1 7 PM EST 10/02/2017 12:20 PM EST us Madina NUR LAB BLOOD BKR ORDERABLES Fi nal Result Performing Organization Address City/State/[facility] Co de Phone Number [facility] [address] [place] [address] documented in this encounter Visit Diagnoses Diagnosis Abdominal pain, left lower quadrant- Primary documented in this encounter Care Teams Solar Energy Advisor Relationship Specialty Start Date End Date Calos Valiente MD [address] [place] [address] [email or web address] PCP - General Family Medicine 09/04/17 12/15/17 Niels Sams MD [address] [place] [address] PCP - General Family Medicine 12/16/17 01/07/19 Unknown, Unknown, [address] [place] [address] [place] PCP - General 01/08/19 05/30/20 Anjelica Clarke MD [address] [place] [address] [place] PCP - General Internal Medicine 05/31/20 05/11/25 Roberto Carlos Hancock NP [address] [place] [address] [place] PCP - General Nurse Practitioner 05/12/25 Anjelica Clarke MD [address] [place] [address] [facility] [place] Internal Medicine 01/08/19 documented as of this encounter Additional Source Comments The information contained in this document represents components of the legal health record. It is not the complete legal health record.[facility]
--- OUTSIDE RECORDS SUMMARY | 2025-08-17 18:45 | XMS_ITS | Encounter Summary ---
Author Organization [facility] Address [address] [place] [address] Phone Care Team Providers Care Repairer Welding Equipment Name Role Phone Anjelica Clarek MD Unavailable [phone] Anjelica Clarke MD Primary Care Provider Roberto Carlos Hancock NP Primary Care Provider + Encounter Details Date Type Department Care Team (Late st Contact Info) Description 04/13/2024 Procedure Pass [facility], [address] [id number] Social History Tobacco Use Types Packs/Day Years [...] Contact Info) Description 05/12/2025 Procedure Pass [address] [address] 12/27/2025 1:00 PM EDT Appointment [address] [address] Roberto Carlos Hancock NP [address] [place] [address] [place] [address] 01/13/2026 10:30 AM EDT Office Visit [address] 12th [place] [address] Gege Cedeno MD [address] [place] [address] [email or web address] documented as of this encounter Visit Diagnoses Not on filedocumented in this encounter Care Teams Repairer Welding Equipment Relationship Specialty Start Date End Date Anjelica Clarke MD [address] [place] [address] PCP - General Internal Medicine 05/31/20 05/11/25 Roberto Carlos Hancock NP [address] [place] [address] [place] [address] PCP - General Nurse Practitioner 05/12/25 Anjelica Clarke MD [address] [place] [address] [place], [place] Internal Medicine 01/08/19 documented as of this encounter Additional Source Comments The information contained in this document represents components of the legal health record. It is not the complete legal health record.[facility]
--- OUTSIDE RECORDS SUMMARY | 2025-08-17 18:45 | XMS_ITS | Encounter Summary ---
Author Organization [facility] Address [address] [place] [address] [place] [address] Phone Care Team Providers Care Submarine Operator Name Role Phone Calos Valiente MD Primary Care Provider [phone] Niels Sams MD Primary Care Provider [phone] Anjelica Clarke MD Unavailable [phone] Unknown, Unknown Primary Care Provider Anjelica Fajardo MD Primary Care Provider [phone] Roberto Carlos Hancock NP Primary Care Provider + Reason for Referral * MRI/CAT Scan - Closed Specialty Diagnoses / Procedures Referred By Contjulius t Referred To Contact Radiology Diagnoses Other nonspecific abnormal finding of lung field (CODE) Procedures CT Chest Calos Valiente MD Phone: tel: fax: [email or web address] Referral ID Status Reason Start Date Expiration Date Visits Re quested Visits Authorized [id number] Closed 09/24/2017 09/24/2018 1 1 Encounter Details Date Type Department Care Team (Late st Contact Info) Description 09/24/2017 Ancillary Orders [facility] Department [address] [place] [address] Calos Valiente MD [address] [place] [phone] [email or web address] Other nonspecific abnormal finding of lung field [...] Contact Info) Description 05/12/2025 Procedure Pass [address] [address] 12/27/2025 1:00 PM EDT Appointment [address] [address] Roberto Carlos Hancock, SIMON [facility] [place] [address] 01/13/2026 10:30 AM EDT Office Visit [address] [address] Gege Cedeno MD [address] [place] [address] [email or web address] documented as of this encounter [...] (CODE) documented in this encounter Care Teams Submarine Operator Relationship Specialty Start Date End Date Calos Valiente MD [address] [place] [address] [email or web address] PCP - General Family Medicine 09/04/17 12/15/17 Niels Sams MD [address] [place] [address] [email or web address] PCP - General Family Medicine 12/16/17 01/07/19 Unknown, MD Nataly [address] [place] [address] PCP - General 01/08/19 05/30/20 Anjelica Clarke MD [address] [place] [address] PCP - General Internal Medicine 05/31/20 05/11/25 Roberto Carlos Hancock NP [address] [place] [address] PCP - General Nurse Practitioner 05/12/25 Anjelica Clarke MD [address] [place] [address] Internal Medicine 01/08/19 documented as of this encounter Additional Source Comments The information contained in this document represents components of the legal health record. It is not the complete legal health record.[facility]
--- OUTSIDE RECORDS SUMMARY | 2025-08-17 18:45 | XMS_ITS | Encounter Summary ---
Author Organization [facility] Address [facility] [employer] [facility] [address] [place] [address] Phone Care Team Providers Care Conversion Man Name Role Phone Calos Valiente MD Primary Care Provider [phone] Niels Sams MD Primary Care Provider Anjelica Clarke MD Unavailable [phone] Unknown, Unknown Primary Care Provider Anjelica Fajardo MD Primary Care Provider [phone] Roberto Carlos Hancock NP Primary Care Provider + Encounter Details Date Type Department Care Team (Late st Contact Info) Description 09/12/2017 Procedure Pass [facility] [place] PERIOP DEPT [address] [place] [address] Social History Tobacco Use Types Packs/Day Years [...] st Contact Info) Description 05/12/2025 Procedure Pass [address] [address] 12/27/2025 1:00 PM EDT Appointment [address] [address] Roberto Carlos Hancock NP [address] [facility] [place] [address] 01/13/2026 10:30 AM EDT Office Visit [facility] [address] [facility] 12th [place] [address] Gege Cedeno MD [address] [place] [address] [email or web address] documented as of this encounter Visit Diagnoses Not on filedocumented in this encounter Care Teams Conversion Man Relationship Specialty Start Date End Date Calos Valiente MD [address] [place] [address] [email or web address] PCP - General Family Medicine 09/04/17 12/15/17 Niels Sams MD [address] [place] [address] [email or web address] PCP - General Family Medicine 12/16/17 01/07/19 Unknown, Nataly, [address] [place], [place] PCP - General 01/08/19 05/30/20 Anjelica Clarke MD [facility] [place] PCP - General Internal Medicine 05/31/20 05/11/25 Roberto Carlos Hancock NP [facility] [address] [place] PCP - General Nurse Practitioner 05/12/25 Anjelica Clarke MD [address] [place] [address] Internal Medicine 01/08/19 documented as of this encounter Additional Source Comments The information contained in this document represents components of the legal health record. It is not the complete legal health record.[facility]
--- OUTSIDE RECORDS SUMMARY | 2025-08-17 18:45 | XMS_ITS | Encounter Summary ---
Author Organization [facility] Address [address] [place] [address] Phone Care Team Providers Care Door Repairer Bus Name Role Phone Anjelica Clarke MD Unavailable [phone] Roberto Carlos Hancock NP Primary Care Provider + Encounter Details Date Type Department Care Team (Late st Contact Info) Description 05/12/2025 Transcribe Orders Virtual Department [address] [place] [address] Roberto Carlos Hancock NP [facility] [place] [address] Breast screening (Primary Dx) Social History Tobacco [...] Contact Info) Description 05/12/2025 Procedure Pass [address] [address] 12/27/2025 1:00 PM EDT Appointment [address] [address] Roberto Carlos Hancock NP [address] [facility] [address] [place] [address] 01/13/2026 10:30 AM EDT Office Visit [address] 12th [place] [address] Gege Cedeno MD [address] [place] [address] [email or web address] Scheduled Orders Name Type Priority Associated Diagnoses Orde r Schedule Mammogram Screening (Bilateral) Imaging Routine Breast screening Expected: 06/12/2025, Expires: 05/12/2026 documented as of this encounter Visit Diagnoses Diagnosis Breast screening- Primary Breast screening, unspecified documented in this encounter Care Teams Door Repairer Bus Relationship Specialty Start Date End Date Roberto Carlos Hancock NP [address] [place] [address] Dr [place] [address] PCP - General Nurse Practitioner 05/12/25 Anjelica Clarke MD [address] [place] [address] [place] [address] Internal Medicine 01/08/19 documented as of this encounter Additional Source Comments The information contained in this document represents components of the legal health record. It is not the complete legal health record.[facility]
--- OUTSIDE RECORDS SUMMARY | 2025-08-17 18:45 | XMS_ITS | Encounter Summary ---
Author Organization [facility] Address [facility] [employer] [facility] [address] [place] [address] Phone Care Team Providers Care Digital Tech Name Role Phone Calos Valiente MD Primary Care Provider [phone] Niels Sams MD Primary Care Provider [phone] Anjelica Clarke MD Unavailable [phone] Unknown, Unknown Primary Care Provider Anjelica Fajardo MD Primary Care Provider [phone] Roberto Carlos Hancock NP Primary Care Provider + Encounter Details Date Type Department Care Team (Late st Contact Info) Description 09/24/2017 Procedure [facility], Ct Scan - [address] [address] Social History Tobacco Use Types Packs/Day Years [...] Contact Info) Description 05/12/2025 Procedure Pass [address] [address] 12/27/2025 1:00 PM EDT Appointment [address] [address] Roberto Carlos Hancock, SIMON [facility] [place] [address] 01/13/2026 10:30 AM EDT Office Visit [facility] [address] [facility] 12th [place] [address] Gege Cedeno MD [address] [place] [address] [email or web address] documented as of this encounter Visit Diagnoses Not on filedocumented in this encounter Care Teams Digital Tech Relationship Specialty Start Date End Date Calos Valiente MD [address] [place] [address] PCP - General Family Medicine 09/04/17 12/15/17 Niels Sams MD [address] [place] [address] [email or web address] PCP - General Family Medicine 12/16/17 01/07/19 Nataly, MD Nataly [facility] [place], [place] PCP - General 01/08/19 05/30/20 Anjelica Clarke MD [address] [place] [address] [facility] [place] PCP - General Internal Medicine 05/31/20 05/11/25 Roberto Carlos Hancock, SIMON [address] [place] [address] Dr [place] PCP - General Nurse Practitioner 05/12/25 Anjelica Clarke MD [address] [place] [address] Internal Medicine 01/08/19 documented as of this encounter Additional Source Comments The information contained in this document represents components of the legal health record. It is not the complete legal health record.[facility]
--- OUTSIDE RECORDS SUMMARY | 2025-08-17 18:45 | XMS_ITS | Encounter Summary ---
Author Organization [facility] Address [facility] [employer] [address] [address] Phone Care Team Providers Care Platform Material Handling Supervisor Name Role Phone Niels Sams MD Primary Care Provider [phone] Anjelica Clarke MD Unavailable [phone] Unknown, Unknown Primary Care Provider Anjelica Fajardo MD Primary Care Provider [phone] Roberto Carlos Hancock NP Primary Care Provider + Encounter Details Date Type Department Care Team (Late Contact Info) Description 11/21/2018 Ancillary Orders Virtual Department 30 [place] [address] Niels Sams MD [address] [place] [address] Breast screening Social History Tobacco Use Types [...] Contact Info) Description 05/12/2025 Procedure Pass [address] [address] 12/27/2025 1:00 PM EDT Appointment [address] [address] Roberto Carlos Hancock, SIMON [address] [facility] [place] [address] 01/13/2026 10:30 AM EDT Office Visit [address] [address] Gege Cedeno MD [address] [place] [address] [email or web address] documented as of this encounter Results [...] There are scattered fibroglandular densities. POS - [id number] Narrative 01/28/2019 6:46 PM EDT FINDINGS: Bilateral [...] There are scattered fibroglandular densities. POS - [id number] Niels Sams MD IMG MG EXAMS Final Result documented in this encounter Visit Diagnoses Diagnosis Breast screening Breast screening, unspecified Breast screening Breast screening, unspecified documented in this encounter Care Teams Platform Material Handling Supervisor Relationship Specialty Start Date End Date Niels Sams MD [email or web address] PCP - General Family Medicine 12/16/17 01/07/19 Unknown, Nataly, [address] [place] [address] [facility] [place]CP - General 01/08/19 05/30/20 Anjelica Clarke MD [facility] [place] PCP - General Internal Medicine 05/31/20 05/11/25 Roberto Carlos Hancock NP [address] [place] [address] [place] PCP - General Nurse Practitioner 05/12/25 Anjelica Clarke MD [facility] [place] [address] Internal Medicine 01/08/19 documented as of this encounter Additional Source Comments The information contained in this document represents components of the legal health record. It is not the complete legal health record.[facility]
--- OUTSIDE RECORDS SUMMARY | 2025-08-17 18:45 | XMS_ITS | Encounter Summary ---
Author Organization [facility] Address [facility] [employer] [facility] [address] [place] [address] Phone Care Team Providers Care Stereo Equipment Installer Name Role Phone Unknown, Unknown Primary Care Provider Calos Whitt MD Primary Care Provider [phone] Niels Sams MD Primary Care Provider Anjelica Clarke MD Unavailable [phone] Unknown, Unknown Primary Care Provider Anjelica Fajardo MD Primary Care Provider [phone] Roberto Carlos Hancock NP Primary Care Provider + Encounter Details Date Type Department Care Team (Late st Contact Info) Description 08/27/2017 Procedure Pass [facility], Ct Scan - [address] [address] Social History Tobacco Use Types Packs/Day Years [...] Pass [facility], [address] [address] 12/27/2025 1:00 PM EDT Appointment [facility], [address] [address] Roberto Carlos Hancock NP [address] [facility] [address] Kevin [place] 01/13/2026 10:30 AM EDT Office Visit [facility] [address] [facility] 12th [place] [address] Gege Cedeon MD [address] [place] [address] [email or web address] documented as of this encounter Visit Diagnoses Not on filedocumented in this encounter Care Teams Stereo Equipment Installer Relationship Specialty Start Date End Date Unknown, Unknown, PCP - General 05/30/17 09/03/17 Calos Valiente MD [address] [place] [address] [email or web address] PCP - General Family Medicine 09/04/17 12/15/17 Niels Sams MD [address] [place] [address] [email or web address] PCP - General Family Medicine 12/16/17 01/07/19 Unknown, Unknown, PCP - General 01/08/19 05/30/20 Anjelica Clarke MD [address] [facility] [place] [address] PCP - General Internal Medicine 05/31/20 05/11/25 Roberto Carlos Hancock NP [facility] [address] Kevin [place] PCP - General Nurse Practitioner 05/12/25 Anjelica Clarke MD [address] [place] [address] Internal Medicine 01/08/19 documented as of this encounter Additional Source Comments The information contained in this document represents components of the legal health record. It is not the complete legal health record.[facility]
--- OUTSIDE RECORDS SUMMARY | 2025-08-17 18:45 | XMS_ITS | Encounter Summary ---
Author Organization [facility] Address [facility] [employer] [facility] [address] [place] [address] Phone Care Team Providers Care Management Specialist Name Role Phone Anjelica Clarke MD Unavailable [phone] Anjelica Clarke MD Primary Care Provider [phone] Roberto Carlos Hancock NP Primary Care Provider + Encounter Details Date Type Department Care Team (Late st Contact Info) Description 04/04/2021 Procedure Pass [address] [address] Social History Tobacco Use Types Packs/Day Years [...] Contact Info) Description 05/12/2025 Procedure Pass [address] [address] 12/27/2025 1:00 PM EDT Appointment [address] [address] Roberto Carlos Hancock NP [address] [place] [address] [place] [address] 01/13/2026 10:30 AM EDT Office Visit [facility] [address] 12th [place] [address] Gege Cedeno MD [address] [place] [address] [email or web address] documented as of this encounter Visit Diagnoses Not on filedocumented in this encounter Care Teams Management Specialist Relationship Specialty Start Date End Date Anjelica Clarke MD [address] [place] [address] PCP - General Internal Medicine 05/31/20 05/11/25 Roberto Carlos Hancock NP [address] [place] [address] [place] [address] PCP - General Nurse Practitioner 05/12/25 Anjelica Clarke MD [address] [place] [address] Internal Medicine 01/08/19 documented as of this encounter Additional Source Comments The information contained in this document represents components of the legal health record. It is not the complete legal health record.[facility]
--- OUTSIDE RECORDS SUMMARY | 2025-08-17 18:45 | XMS_ITS | Encounter Summary ---
Author Organization [facility] Address [address] [facility] [address] [place] [address] Phone Care Team Providers Care Electrical Worker Name Role Phone Anjelica Clarke MD Unavailable [phone] Anjelica Clarke MD Primary Care Provider [phone] Roberto Carlos Hancock NP Primary Care Provider + Encounter Details Date Type Department Care Team (Late st Contact Info) Description 04/04/2021 Ancillary Orders [facility] [address] [place] [address] Ajnelica Clarke MD [facility]2 [place] [address] Breast screening Social History Tobacco Use Types [...] Info) Description 05/12/2025 Procedure Pass [facility], [facility] 30 [place] [address] 12/27/2025 1:00 PM EDT Appointment [facility], [facility] [address] [place] [address] Roberto Carlos Hancock, SIMON [address] [facility] [place] [address] 01/13/2026 10:30 AM EDT [facility] [address] [facility] [place] [facility] 12th [place] [address] Gege Cedeno MD [address] [place] [address] [email or web address] documented as of this encounter Results [...] unspecified documented in this encounter Care Teams Electrical Worker Relationship Specialty Start Date End Date Anjelica Clarke MD [address] [place] [address] PCP - General Internal Medicine 05/31/20 05/11/25 Roberto Carlos Hancock NP [facility] [place] [address] PCP - General Nurse Practitioner 05/12/25 Anjelica Clarke MD [facility] [place] [address] Internal Medicine 01/08/19 documented as of this encounter Additional Source Comments The information contained in this document represents components of the legal health record. It is not the complete legal health record.[facility]
--- OUTSIDE RECORDS SUMMARY | 2025-08-17 18:45 | XMS_ITS | Encounter Summary ---
Author Organization [facility] Address [facility] [employer] [facility] [address] [place] [address] Phone Care Team Providers Care Director Inpatient Headache Program Name Role Phone Niels Sams MD Primary Care Provider [phone] Anjelica Clarke MD Unavailable [phone] Unknown, Unknown Primary Care Provider Anjelica Fajardo MD Primary Care Provider [phone] Roberto Carlos Hancock NP Primary Care Provider + Encounter Details Date Type Department Care Team (Latest Contact Info) Description 12/18/2017 Transcribe Orders [facility] [address] 2nd [place] [address] Tru Roberts MD [address] [address] Abdominal pain, left lower quadrant (Primary Dx); [...] Contact Info) Description 05/12/2025 Procedure Pass [address] [address] 12/27/2025 1:00 PM EDT Appointment [address] [address] Roberto Carlos Hancock, SIMON [address] [place] [address] [place] [address] 01/13/2026 10:30 AM EDT Office Visit [address] [place] [address] Gege Cedeno MD [address] [place] [address] [email or web address] documented as of this encounter Results * Immunoglobulin A (12/18/2017 11:36 AM EDT) IgA 376 70 - 400 mg/dL [facility] Blood 12/18/2017 11:3 6 AM EDT 12/18/2017 11:42 AM EDT us Tru Roberts MD LAB BLOOD BKR ORDERABLES José Miguel al Result [address] [address] * LFTs (hepatic panel) (12/18/2017 11:36 AM EDT) ALKALINE PHOSPHATASE 60 39 - 117 U/L [facility] TOTAL BILIRUBIN 0.4 0.0 - 1.2 mg/dL [facility] DIRECT BILIRUBIN <0.2 0 - 0.3 mg/dL [facility] Bilirubin (Indirect) NOT CALCULATED 0 - 1.5 mg/dL [facility] AST 17 0 - 37 U/L [facility] ALT 11 0 - 40 U/L [facility] TOTAL PROTEIN 6.9 6.5 - 8.0 g/dL [facility] ALBUMIN 4.1 3.9 - 4.8 g/dL [facility] GLOBULIN 2.8 1 - 4.8 g/dL [facility] A/G Ratio 1.46 1.00 - 4.80 RATIO [facility] Blood 12/18/2017 11:3 6 AM EDT 12/18/2017 11:42 AM EDT us Tru Roberts MD LAB BLOOD BKR ORDERABLES Fin al Result Performing Organization Address City/[facility]/ZIP Co de Phone Number [address] [address] * C-Reactive Protein (12/18/2017 11:36 AM EDT) C REACTIVE PROTEIN 0.1 0 - 0.5 mg/L [facility] Blood 12/18/2017 11:3 6 AM EDT 12/18/2017 11:42 AM EDT us Tru Roberts MD LAB BLOOD BKR ORDERABLES Fin al Result Performing Organization Address City/[facility]/ZIP Co de Phone Number [address] [address] * Tissue transglutaminase IgA (12/18/2017 11:36 AM EDT) TTG IGA ANTIBODY <1.2 <4.0 (Negative) U/mL [facility] DPT OF LAB MED AND PAT+ Blood 12/18/2017 11:3 6 AM EDT 12/18/2017 11:41 AM EDT us Tru Roberts MD LAB BLOOD BKR ORDERABLES Fin al Result [facility] DPT OF LAB MED AND PAT+ [address] [place] [address] * CBC and differential (12/18/2017 11:36 AM EDT) WBC 5.80 3.40 - 11.20 K/uL [facility] RBC 4.48 3.80 - 4.80 M/uL [facility] HGB 13.2 12.0 - 15.0 g/dL [facility] HCT 40.5 36.0 - 46.0 % [facility] PLT 249 130 - 400 K/uL [facility] MCV 90.4 79.0 - 98.0 fL [facility] MCH 29.5 27.0 - 34.8 pg [facility] MCHC 32.6 31.5 - 36.0 g/dL [facility] RDW 13.2 10.8 - 14.6 % [facility] MPV 10.4 9.4 - 12.4 fl [facility] NRBC 0.00 /100 WBCs [facility] ABSOLUTE NRBC 0.00 K/uL [facility] DIFF METHOD Auto [facility] NEUTS 54.6 45.30 - 77.70 % [facility] LYMPHS 35.9 12.30 - 39.70 % [facility] MONOS 6.9 4.10 - 12.80 % [facility] EOS 2.1 0 - 7.2 % [facility] BASOS 0.3 0 - 2.80 % [facility] Granulocytes, immature (%) 0.2 0.0 - 0.9 % [facility] ABSOLUTE NEUTS 3.17 1.40 - 7.70 K/uL [facility] ABSOLUTE LYMPHS 2.08 0.60 - 3.20 K/uL [facility] ABSOLUTE MONOS 0.40 0.11 - 0.59 K/uL [facility] ABSOLUTE EOS 0.12 0.01 - 0.50 K/uL [facility] ABSOLUTE BASOS 0.02 0.00 - 0.08 K/uL [facility] Granulocytes, immature 0.01 0.00 - 0.05 K/uL [facility] Blood 12/18/2017 11:3 6 AM EDT 12/18/2017 11:42 AM EDT us Tru Roberts MD LAB BLOOD BKR ORDERABLES Fin al Result [facility] [address] [place] [address] documented in this encounter Visit Diagnoses Diagnosis Abdominal pain, left lower quadrant- Primary Abdominal distention Flatulence, eructation, and gas pain 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 documented in this encounter Care Teams Director Inpatient Headache Program Relationship Specialty Start Date End Date Niels Sams MD [email or web address] PCP - General Family Medicine 12/16/17 01/07/19 Unknown, Unknown, [address] [place] [address] PCP - General 01/08/19 05/30/20 Anjelica Clarke MD [address] [place] [address] PCP - General Internal Medicine 05/31/20 05/11/25 Roberto Carlos Hancock NP [address] [place] [address] PCP - General Nurse Practitioner 05/12/25 Anjelica Clarke MD [address] [place] [address] Internal Medicine 01/08/19 documented as of this encounter Additional Source Comments The information contained in this document represents components of the legal health record. It is not the complete legal health record.[facility]
== END 2025-08-17 13:46 | disposition home or self-care (01) ==
LOC: HO.HMGCLNP 13:45
PROVIDERS: PCP Nurse Practitioner Family; Visit Provider Nurse Practitioner Family
DX: E78.5 Hyperlipidemia, unspecified (principal)
CPT/HCPCS: 81001; 87086

== ENCOUNTER 2025-08-18 13:28 | Outpatient (AMB) | payer MEDICARE, SELFPAY ==
[2025-08-18 13:35] VITALS: BMI 27.2
--- NOTE | 2025-08-18 13:35 | MHC.OFFVIS ---
Vital Signs 08/18/25 13:35 Height 4 ft 10 in Weight 130 lb BMI 27.2 Intake Visit Reasons: NewProb- LT hand Index Finger Mass Intake Note: Irene is an 84 year old right hand dominant female who presents today for a New Problem Visit for evaluation of a Left Index Finger Mass. Patient reports she's had a bump on the radial aspect of her left index finger for about 1 year that since has increased in size. She explains the bump does not allow her to fully bend her index finger to make a full fist. She is not taking anything for pain. She denies numbness, tingling, or finger locking. However, she reports right ring finger locking and catching. History of Right Middle Finger Trigger Release, DOS: 04/19/[address] Kraus. Allergies aspirin (ASA) Allergy (Intermediate, Verified 08/18/25 13:35) TACHYCARDIA buspirone (From BuSpar) Allergy (Unknown, Verified 08/18/25 13:35) Stomach Upset atorvastatin Adverse Reaction (Intermediate, Verified 08/18/25 13:35) Headache Sulfa (Sulfonamide Antibiotics) (SULFA(SULFONAMIDE ANTIBIOTICS)) Adverse Reaction (Intermediate, Verified 08/18/25 13:35) VOMITING chlorthalidone Adverse Reaction (Unknown, Verified 08/18/25 13:35) Stomach pain, loss of appetite HPI HPI NewProb- LT hand Index Finger Mass: Details: Irene is an 84 year old right hand dominant female who presents today for a New Problem Visit for evaluation of a Left Index Finger Mass. Patient reports she's had a bump on the radial aspect of her left index finger for about 1 year that since has increased in size. She explains the bump does not allow her to fully bend her index finger to make a full fist. She is not taking anything for pain. Patient states that she has waited long enough, and she would like to pursue mass excision at this time. She denies numbness, tingling, or finger locking. However, she reports right ring finger locking and catching. History of Right Middle Finger Trigger Release, DOS: 04/19/[address] Kraus. [facility] Medical History (Updated 08/18/25 @ 16:15 by [employer]) Melanoma, choroid Idiopathic hypercalciuria Vitamin D deficiency Ingrown toenail of right foot Hip fracture, right Multinodular goiter Osteoporosis Surgical History History of lobectomy of thyroid Hx of cholecystectomy H/O colonoscopy Family History Father No problems noted. Mother No problems noted. Social History Housing: House Alcohol intake: never Patient Tobacco Use Status: Never used Tobacco e-Cigarette/Vaping Use: Never Used Second Hand Smoke Exposure: No Current occupational status: retired Cognitive needs: No Hearing needs: No Vision needs: Yes Review of Systems Const All systems reviewed & are unremarkable except as noted in HPI and below Physical Exam Vital Signs: BMI result Body Mass Index 27.2 Extrem Other: Patient is alert, oriented, and in no acute distress. Neuro: Normal sensation of the tips of all digits of bilateral hand at this time Vascular: Cap refill brisk Pain: No tenderness to palpation of the A1 héctor of the right middle finger or the incision site No further Pain with range of motion of the right middle finger ROM: There is no further Visible and palpable locking and catching of the right middle finger Patient was able to make a closed fist and extend all digits of the right hand fully Skin: No lacerations or abrasions. General: There was an approximately 0.5 cm in diameter fluctuant and mobile mass noted on the radial aspect of the MCP joint of the left index finger No ecchymosis, erythema, or evidence of infection. Psych: Appears grossly normal Affect normal Attitude cooperative Assessment & Plan Assessment & Plan (1) Mass of left hand: Code(s): R22.32 - Localized swelling, mass and lump, left upper limb Category: Medical Plan 1. Left index finger mass Patient is educated about this condition Patient is educated about the treatment options available At this time, patient is referred to Dr. Kraus for assessment of left index finger mass as I feel this mass is located close enough to the neurovascular bundle that she should see this prior to surgery and make a determination whether it is appropriate to do under local or we will need general anesthesia Patient understands this and is amenable to this plan Follow-up with Dr. Kraus for next available surgical consult, sooner with any acute concerns Coding Level of Care Code Est Pt Level 3 (86913) Diagnoses Mass of left hand R22.32
--- OUTSIDE RECORDS SUMMARY | 2025-08-18 16:35 | XMS_ITS | Encounter Summary ---
Author Organization [facility] Address [employer] [facility] [address] [place] [address] Phone Care Team Providers Care High School Science Tutor Name Role Phone Calos Valiente MD Primary Care Provider [phone] Niels Sams MD Primary Care Provider [phone] Anjelica Clarke MD Unavailable [phone] Unknown, Unknown Primary Care Provider Anjelica Fajardo MD Primary Care Provider [phone] Roberto Carlos Hancock NP Primary Care Provider + Encounter Details Date Type Department Care Team (Late st Contact Info) Description 09/24/2017 Procedure [facility], Ct Scan - [address] [address] Social History Tobacco Use Types Packs/Day Years [...] Contact Info) Description 05/12/2025 Procedure Pass [address] [address] 12/27/2025 1:00 PM EDT Appointment [address] [address] Roberto Carlos Hancock, SIMON [facility] [place] [address] 01/13/2026 10:30 AM EDT Office Visit [facility] [address] [facility] [address] [place] [address] Gege Cedeno MD [address] [place] [address] [email or web address] documented as of this encounter Visit Diagnoses Not on filedocumented in this encounter Care Teams High School Science Tutor Relationship Specialty Start Date End Date Calos Valiente MD [address] [place] [address] [email or web address] PCP - General Family Medicine 09/04/17 12/15/17 Niels Sams MD [address] [place] [address] [email or web address] PCP - General Family Medicine 12/16/17 01/07/19 Nataly, MD Nataly [facility] [place] [place] PCP - General 01/08/19 05/30/20 Anjelica Clarke MD [address] [place] [address] [facility] [place] [place] PCP - General Internal Medicine 05/31/20 05/11/25 Roberto Carlos Hancock, SIMON [address] [place] [address] Dr [place] PCP - General Nurse Practitioner 05/12/25 Anjelica Clarke MD [address] [place] [address] Internal Medicine 01/08/19 documented as of this encounter Additional Source Comments The information contained in this document represents components of the legal health record. It is not the complete legal health record.[facility]
--- OUTSIDE RECORDS SUMMARY | 2025-08-18 16:35 | XMS_ITS | Encounter Summary ---
Author Organization [facility] Address [facility] [address] [address] Phone Care Team Providers Care Truck Repair Service Estimator Name Role Phone Unknown, Unknown Primary Care Provider Calos Whitt MD Primary Care Provider [phone] Niels Sams MD Primary Care Provider [phone] Anjelica Clarke MD Unavailable [phone] Unknown, Unknown Primary Care Provider Anjelica Fajardo MD Primary Care Provider [phone] Roberto Carlos Hancock NP Primary Care Provider + Encounter Details Date Type Department Care Team (Latest Contact Info) Description 08/27/[address] [facility] Phleb Billie [address] [address] Madina Bernal PA 10 [place] [address] Abdominal pain, left lower quadrant (Primary Dx) [...] st Contact Info) Description 05/12/2025 Procedure Pass [address] [address] 12/27/2025 1:00 PM EDT Appointment [address] [address] Roberto Carlos Hancock NP [facility] [place] [address] 01/13/2026 10:30 AM EDT Office Visit [address] 12th [place] [address] Gege Cedeno MD [address] [place] [address] [email or web address] documented as of this encounter Results * Creatinine/eGFR (08/27/2017 1:29 PM EST) CREATININE 0.70 0.5 - 1.5 mg/dL [facility] EGFR >60 mL/min/1.7 3m2 [facility] Comment:Abnormal if <60. If patient is -Finnish, multiply the result by 1.21. Blood 08/27/2017 1:29 PM EST 08/27/2017 1:32 PM EST us Madina NUR LAB BLOOD BKR ORDERABLES Fi nal Result [address] [address] documented in this encounter Visit Diagnoses Diagnosis Abdominal pain, left lower quadrant- Primary documented in this encounter Care Teams Truck Repair Service Estimator Relationship Specialty Start Date End Date Unknown, Unknown, MD PCP - General 05/30/17 09/03/17 Calos Valiente MD [address] [place] [address] [email or web address] PCP - General Family Medicine 09/04/17 12/15/17 Niels Sams MD [address] [place] [address] [email or web address] PCP - General Family Medicine 12/16/17 01/07/19 Unknown, Nataly, MD PCP - General 01/08/19 05/30/20 Anjelica Clarke MD [address] [place] [address] PCP - General Internal Medicine 05/31/20 05/11/25 Roberto Carlos Hancock NP [address] [place] [address] PCP - General Nurse Practitioner 05/12/25 Anjelica Clarke MD [address] [place] [address] Internal Medicine 01/08/19 documented as of this encounter Additional Source Comments The information contained in this document represents components of the legal health record. It is not the complete legal health record.[facility]
--- OUTSIDE RECORDS SUMMARY | 2025-08-18 16:35 | XMS_ITS | Encounter Summary ---
Author Organization [facility] Address [address] [place] [address] [place] [address] Phone Care Team Providers Care Educational Speech Language Clinician Name Role Phone Unknown, Unknown Primary Care Provider Calos Whitt MD Primary Care Provider [phone] Niels Sams MD Primary Care Provider [phone] Anjelica Clarke MD Unavailable [phone] Unknown, Unknown Primary Care Provider Anjelica Fajardo MD Primary Care Provider [phone] Roberto Carlos Hancock NP Primary Care Provider + Reason for Referral * MRI/CAT Scan - Closed Specialty Diagnoses / Procedures Referred By Contac t Referred To Contact Radiology Diagnoses Abdominal pain, left lower quadrant Procedures CT Abdomen/Pelvis Madina Bernal PA Phone: tel: fax: Referral ID Status Reason Start Date Expiration Date Visits Re quested Visits Authorized [id number] Closed 08/27/2017 08/27/2018 1 1 Encounter Details Date Type Department Care Team (Late st Contact Info) Description 08/27/2017 Ancillary Orders [facility] External Provider Virtual Department [address] [place] [address] Madina Bernal PA [address] [place] [address] Abdominal pain, left lower quadrant Social History [...] st Contact Info) Description 05/12/2025 Procedure Pass [address] [address] 12/27/2025 1:00 PM EDT Appointment [address] [address] Roberto Carlos Hancock, SIMON [address] [place] [address] [place] [address] 01/13/2026 10:30 AM EDT Office Visit [address] [address] Gege Cedeno MD [address] [place] [address] [email or web address] [...] quadrant documented in this encounter Care Teams Educational Speech Language Clinician Relationship Specialty Start Date End Date Unknown, Unknown, MD PCP - General 05/30/17 09/03/17 Calos Valiente MD [address] [place] [address] [email or web address] PCP - General Family Medicine 09/04/17 12/15/17 Niels Sams MD [address] [place] [address] [email or web address] PCP - General Family Medicine 12/16/17 01/07/19 Unknown, Unknown, MD PCP - General 01/08/19 05/30/20 Anjelica Clarke MD [address] [place] [address] PCP - General Internal Medicine 05/31/20 05/11/25 Roberto Carlos Hancock NP [address] [place] [address] PCP - General Nurse Practitioner 05/12/25 Anjelica Clarke MD [address] [place] [address] Internal Medicine 01/08/19 documented as of this encounter Additional Source Comments The information contained in this document represents components of the legal health record. It is not the complete legal health record.[facility]
--- OUTSIDE RECORDS SUMMARY | 2025-08-18 16:36 | XMS_ITS | Encounter Summary ---
Author Organization [facility] Address [address] [place] [address] Phone Care Team Providers Care International Project Manager Name Role Phone Anjelica Clarke MD Unavailable [phone] Roberto Carlos Hancock NP Primary Care Provider + Encounter Details Date Type Department Care Team (Late st Contact Info) Description 05/12/2025 Transcribe Orders Virtual Department [address] [place] [address] Roberto Carlos Hancock NP [facility] [place] [address] Breast screening (Primary Dx) Social History Tobacco [...] st Contact Info) Description 05/12/2025 Procedure Pass [address] [address] 12/27/2025 1:00 PM EDT Appointment [address] [address] Roberto Carlos Hancock NP [address] [facility] [address] [place] [address] 01/13/2026 10:30 AM EDT Office Visit [address] 12th [place] [address] Gege Cedeno MD [address] [place] [address] [email or web address] Scheduled Orders Name Type Priority Associated Diagnoses Orde r Schedule Mammogram Screening (Bilateral) Imaging Routine Breast screening Expected: 06/12/2025, Expires: 05/12/2026 documented as of this encounter Visit Diagnoses Diagnosis Breast screening- Primary Breast screening, unspecified documented in this encounter Care Teams International Project Manager Relationship Specialty Start Date End Date Roberto Carlos Hancock NP [address] [place] [address] Dr Lord [place] [address] PCP - General Nurse Practitioner 05/12/25 Anjelica Clarke MD [address] [place] [address] Nelson [place] [address] Internal Medicine 01/08/19 documented as of this encounter Additional Source Comments The information contained in this document represents components of the legal health record. It is not the complete legal health record.[facility]
--- OUTSIDE RECORDS SUMMARY | 2025-08-18 16:36 | XMS_ITS | Encounter Summary ---
Author Organization [facility] Address [email or web address] [email or web address] [address] [address] Phone Care Team Providers Care Secretary Book Keeper Name Role Phone Niels Sams MD Primary Care Provider [phone] Anjelica Clarke MD Unavailable [phone] Unknown, Unknown Primary Care Provider Anjelica Fajardo MD Primary Care Provider [phone] Roberot Carlos Hancock NP Primary Care Provider + Encounter Details Date Type Department Care Team (Late st Contact Info) Description 12/16/2017 Ancillary Orders [facility] External Provider Virtual Department 30 [place] [address] Calos Valiente MD 70 [place] [address] [email or web address] Social History Tobacco Use Types Packs/Day Years [...] Contact Info) Description 05/12/2025 Procedure Pass [address] [address] 12/27/2025 1:00 PM EDT Appointment [address] [address] Roberto Carlos Hancock NP [address] [facility] [address] Lord [place] 01/13/2026 10:30 AM EDT Office Visit [address] [address] Gege Cedeno MD [address] [place] [address] [email or web address] documented as of this encounter Visit Diagnoses Not on filedocumented in this encounter Care Teams Secretary Book Keeper Relationship Specialty Start Date End Date Niels Sams MD [email or web address] PCP - General Family Medicine 12/16/17 01/07/19 Unknown, MD Nataly [address] [place], [place] PCP - General 01/08/19 05/30/20 Anjelica Clarke MD [facility] [place], [place] PCP - General Internal Medicine 05/31/20 05/11/25 Roberto Carlos Hancock NP [facility] Dr Lord [place] PCP - General Nurse Practitioner 05/12/25 Anjelica Clarke MD [address] [place] [address] Internal Medicine 01/08/19 documented as of this encounter Additional Source Comments The information contained in this document represents components of the legal health record. It is not the complete legal health record.[facility]
--- OUTSIDE RECORDS SUMMARY | 2025-08-18 16:36 | XMS_ITS | Encounter Summary ---
Author Organization [facility] Address [address] [facility] [address] [place] [address] Phone Care Team Providers Care Life Skills Educator Name Role Phone Anjelica Clarke MD Unavailable [phone] Anjelica Clarke MD Primary Care Provider [phone] Roberto Carlos Hancock NP Primary Care Provider + Encounter Details Date Type Department Care Team (Late st Contact Info) Description 04/04/2021 Ancillary Orders [facility] Department [address] [place] [address] Anjelica Clarke MD [facility]2 [place] [address] Breast screening Social History Tobacco Use Types [...] Info) Description 05/12/2025 Procedure Pass [facility] 30 [place] [address] 12/27/2025 1:00 PM EDT Appointment [facility] 30 [place] [address] Roberto Carlos Hancock, SIMON 1961 [facility] [place] [address] 01/13/2026 10:30 AM EDT Office Visit [facility] [address] [facility] 12th [place] [address] Gege Cedeno MD [address] [place] [address] [email or web address] documented as of this encounter [...] unspecified documented in this encounter Care Teams Life Skills Educator Relationship Specialty Start Date End Date Anjelica Clarke MD [address] [place] [address] PCP - General Internal Medicine 05/31/20 05/11/25 Roberto Carlos Hancock NP [facility] [place] [address] PCP - General Nurse Practitioner 05/12/25 Anjelica Clarke MD [facility] [place] [address] Internal Medicine 01/08/19 documented as of this encounter Additional Source Comments The information contained in this document represents components of the legal health record. It is not the complete legal health record.[facility]
--- OUTSIDE RECORDS SUMMARY | 2025-08-18 16:36 | XMS_ITS | Clinical Summary ---
Author Organization [facility] Address [facility] [employer] [facility] [address] [place] [address] Phone Care Team Providers Care Family Member Caretaker Name Role Phone Anjelica Clarke MD Unavailable [phone] Roberto Carlos Hancock NP Primary Care Provider + Allergies Active Allergy Reactions Criticality Noted Date Comments Sulfa (Sulfonamide Antibiotics) GI Upset Medium 10/2014 Medications calcium acetate (PHOSLO) 667 mg (169 mg elemental) capsule CALCIUM ACETATE ( 1 BSRJYI=197 MG) ; Dose: Not available; Form: Not available; Route: PO; Frequency: Not available; Directions: As directed; Details: Dispense: Capsule(s); Taking; Status: Active; Source: KERRY LOPEZ M.D.; Date: 03/24/2015 5 Active Ca cmb [id number] 120-1,000-10 mg-unit-mg Tab VITAMIN D3 (CHOLECALCIFEROL ); [...] st Contact Info) Description 05/12/2025 Procedure Pass [address] [address] 12/27/2025 1:00 PM EDT Appointment [address] [address] Roberto Carlos Hancock NP [facility] [place] [address] 01/13/2026 10:30 AM EDT Office Visit [facility] [address] [facility] 12th [place] [address] Gege Cedeno MD [address] [place] [address] [email or web address] Health Maintenance Due Date [...] this topic Medical Devices Implanted Type Area Vacuum Worker Device Identifier Shelf Expiration Date Model / Serial / Lot Metal Description:Metal rings R. e ye and R. hip Iol [employer] Iq [id number] 20.5d - [id number] Implanted:Qty: 1 on 09/12/2017 by Agnieszka Shen MD at [facility] Right: Eye JOHN PAUL 07/23/2021 / [id number] / Procedures Procedure Name Priority Date/Time Associated Diagnosis Comments COMPREHENSIVE METABOLIC PANEL (CMP) Routine 10/02/2017 12:17 PM EST Abdominal pain, left lower quadrant from Last 3 Months or Most Recently Relevant to Health Maintenance Results * Comprehensive metabolic panel (10/02/2017 12:17 PM EST) SODIUM 142 133 - 146 mmol/L [facility] POTASSIUM 4.5 3.3 - 5.1 mmol/L [facility] CHLORIDE 102 96 - 108 mmol/L [facility] CO2 30 21 - 35 mmol/L [facility] BUN 18 6 - 19 mg/dL [facility] CREATININE 0.60 0.5 - 1.5 mg/dL [facility] GLUCOSE 95 70 - 99 mg/dL [facility] ALBUMIN 4.5 3.9 - 4.8 g/dL [facility] TOTAL PROTEIN 7.4 6.5 - 8.0 g/dL [facility] CALCIUM 9.8 8.4 - 10.3 mg/dL [facility] ALKALINE PHOSPHATASE 63 39 - 117 U/L [facility] TOTAL BILIRUBIN 0.4 0 - 1.2 mg/dL [facility] AST 19 0 - 37 U/L [facility] ALT 10 0 - 40 U/L [facility] GLOBULIN 2.9 1 - 4.8 g/dL [facility] EGFR >60 mL/min/1.7 3m2 [facility] Comment:Abnormal if <60. If patient is -Peruvian, multiply the result by 1.21. ANION GAP 15 10 - 20 mmol/L [facility] Blood 10/02/2017 12:1 7 PM EST 10/02/2017 12:20 PM EST us Madina NUR LAB BLOOD BKR ORDERABLES Fi nal Result [address] [address] from Last 3 Months or Most Recently Relevant to Health Maintenance Insurance MEDICARE PART A & B Member Subscriber Plan / Payer (Ef fective 2006-Present) Name:Irene Porter Member ID:[id number] Relation to Subscriber:Self Name:Irene Porter Subscriber ID:[id number] Payer ID:[id number] Group ID:Not on file Type:Medicare Address: [facility] Meeting To You [facility] [employer] [facility]. [address] [facility] [place] [address] [facility] MEDICARE SUPPLEMENT MEDICARE PART A & B [facility] MEDICARE SUPPLEMENT MEDICARE PART A & B Member Subscriber Plan / Payer (Ef fective 2006-Present) Name:[place] Member ID:[id number] Relation to Subscriber:Self Name:Irene Porter Subscriber ID:[id number] Payer ID:[id number] Group ID:Not on file Type:Medicare Address: [employer] [address] [place] [phone] [facility] MEDICARE SUPPLEMENT MEDICARE PART A & B [facility] MEDICARE SUPPLEMENT MEDICARE PART A & B [id number] [place] [address] MEDICARE SUPPLEMENT MEDICARE PART A & B [facility] MEDICARE SUPPLEMENT MEDICARE PART A & B [facility] MEDICARE SUPPLEMENT MEDICARE PART A & B [facility] [phone] MEDICARE PART A & B [facility] MEDICARE SUPPLEMENT Advance Directives For more information, please contact: [phone] (9AM - 5PM Magda/[facility], Saturday-Saturday) Documents on File Type Date Recorded Patient Office Communication Professor Expl anation Healthcare Proxy 09/13/2017 11:05 AM * Full Code (Presumed) (Latest Code Status on File) Date Activated Date Inactivated Comments 09/12/2017 10:13 AM 09/12/2017 2:23 PM Care Teams Family Member Caretaker Relationship Specialty Start Date End Date Roberto Carlos Hancock NP [address] [place] [address] [place] [address] PCP - General Nurse Practitioner 05/12/25 Anjelica Clarke MD [address] [place] [address] [place] [address] Internal Medicine 01/08/19 Additional Source Comments The information contained in this document represents components of the legal health record. It is not the complete legal health record.[facility]
--- OUTSIDE RECORDS SUMMARY | 2025-08-18 16:36 | XMS_ITS | Encounter Summary ---
Author Organization [facility] Address [address] [facility] [address] [place] [address] Phone Care Team Providers Care Oleomargarine Maker Name Role Phone Anjelica Clarke MD Unavailable [phone] Anjelica Clarke MD Primary Care Provider [phone] Roberto Carlos Hancock NP Primary Care Provider + Encounter Details Date Type Department Care Team (Late st Contact Info) Description 06/01/2020 Ancillary Orders [facility] Department [address] [place] [address] Anjelica Clarke MD [facility] [place] [address] Abnormal mammogram Social History Tobacco Use Types [...] st Contact Info) Description 05/12/2025 Procedure Pass [facility] 30 [place] [address] 12/27/2025 1:00 PM EDT Appointment [facility] [address] [place] [address] Roberto Carlos Hancock, SIMON [facility]2 [facility] [address] 01/13/2026 10:30 AM EDT Office Visit [facility] [address] [facility] 12th [place] [address] Gege Cedeno MD 243 [place] [address] [email or web address] documented as of this encounter Results * BI US BREAST LIMITED (RIGHT) (06/29/2020 1:58 PM EDT) Anatomical Region Laterality Modality Breast Right, Breast Bilateral Right U ltrasound 06/29/2020 1:53 PM EDT Narrative 06/29/2020 1:58 PM EDT Refer to the mammogram report. Procedure Note Danisha Desai MD - 06/29/2020 Refer to the mammogram report. Anjelica Clarke MD [facility] US BREAST Final Result * BI MAMMOGRAM [...] unspecified documented in this encounter Care Teams Oleomargarine Maker Relationship Specialty Start Date End Date Anjelica Clarke MD [address] [place] [address] PCP - General Internal Medicine 05/31/20 05/11/25 Roberto Carlos Hancock NP 1961 [facility] [place] [address] PCP - General Nurse Practitioner 05/12/25 Anjelica Clarke MD [facility] [place] [address] Internal Medicine 01/08/19 documented as of this encounter Additional Source Comments The information contained in this document represents components of the legal health record. It is not the complete legal health record.[facility]
--- OUTSIDE RECORDS SUMMARY | 2025-08-18 16:36 | XMS_ITS | Encounter Summary ---
Author Organization [facility] Address [facility] [employer] [facility] [address] [place] [address] Phone Care Team Providers Care Mortgage Broker Name Role Phone Calos Valiente MD Primary Care Provider [phone] Niels Sams MD Primary Care Provider [phone] Anjelica Clarke MD Unavailable [phone] Unknown, Unknown Primary Care Provider Anjelica Fajardo MD Primary Care Provider [phone] Roberto Carlos Hancock NP Primary Care Provider + Encounter Details Date Type Department Care Team (Late st Contact Info) Description 09/08/2017 Prep for Surgery [address] [address] Agnieszka Shen MD [address] [place] [address] 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 documented in this encounter Care Teams Mortgage Broker Relationship Specialty Start Date End Date Calos Valiente MD [address] [place] [address] [email or web address] PCP - General Family Medicine 09/04/17 12/15/17 Niels Sams MD [address] [place] [address] [email or web address] PCP - General Family Medicine 12/16/17 01/07/19 Naatly, MD Nataly [address] [place], [place] PCP - General 01/08/19 05/30/20 Anjelica Clarke MD [facility] [place], [place] PCP - General Internal Medicine 05/31/20 05/11/25 Roberto Carlos Hancock NP [facility] [place] [address] PCP - General Nurse Practitioner 05/12/25 Anjelica Clarke MD [facility] [place] [address] Internal Medicine 01/08/19 documented as of this encounter Additional Source Comments The information contained in this document represents components of the legal health record. It is not the complete legal health record.[facility]
--- OUTSIDE RECORDS SUMMARY | 2025-08-18 16:36 | XMS_ITS | Encounter Summary ---
Author Organization [facility] Address [facility] [address] [place] [address] Phone Care Team Providers Care Batch Room Technician Name Role Phone Unknown, Unknown Primary Care Provider Calos Whitt MD Primary Care Provider [phone] Niels Sams MD Primary Care Provider [phone] Anjelica Clarke MD Unavailable [phone] Unknown, Unknown Primary Care Provider Anjelica Fajardo MD Primary Care Provider [phone] Roberto Carlos Hancock NP Primary Care Provider + Encounter Details Date Type Department Care Team (Late st Contact Info) Description 08/27/2017 Procedure Pass [facility], Ct Scan - [address] [address] Social History Tobacco Use Types Packs/Day Years [...] st Contact Info) Description 05/12/2025 Procedure Pass [facility], [address] [address] 12/27/2025 1:00 PM EDT Appointment [facility], [address] [address] Roberto Carlos Hancock NP [address] [place] 01/13/2026 10:30 AM EDT Office Visit [facility] [address] [facility] 12th [place] [address] Gege Cedeno MD [address] [place] [address] [email or web address] documented as of this encounter Visit Diagnoses Not on filedocumented in this encounter Care Teams Batch Room Technician Relationship Specialty Start Date End Date Unknown, Unknown, PCP - General 05/30/17 09/03/17 Calos Valiente MD [address] [place] [address] PCP - General Family Medicine 09/04/17 12/15/17 Niels Sams MD [address] [place] [address] [email or web address] PCP - General Family Medicine 12/16/17 01/07/19 Unknown, Unknown, PCP - General 01/08/19 05/30/20 Anjelica Clarke MD [address] [facility] [place] [place] [address] PCP - General Internal Medicine 05/31/20 05/11/25 Roberto Carlos Hancock NP [facility] [address] [place] PCP - General Nurse Practitioner 05/12/25 Anjelica Clarke MD [address] [place] [address] Internal Medicine 01/08/19 documented as of this encounter Additional Source Comments The information contained in this document represents components of the legal health record. It is not the complete legal health record.[facility]
--- OUTSIDE RECORDS SUMMARY | 2025-08-18 16:36 | XMS_ITS | Encounter Summary ---
Author Organization [facility] Address [address] [facility] [address] [place] [address] Phone Care Team Providers Care Woodwork Teacher Name Role Phone Anjelica Clarke MD Unavailable [phone] Unknown, Unknown Primary Care Provider Anjelica Fajardo MD Primary Care Provider [phone] Roberto Carlos Hancock NP Primary Care Provider + Encounter Details Date Type Department Care Team (Late st Contact Info) Description 11/06/2019 Ancillary Orders Virtual Department 30 [place] [address] Anjelica Clarke MD [facility] [place] [address] Breast screening Social History Tobacco Use Types [...] Info) Description 05/12/2025 Procedure Pass [facility] [address] [address] 12/27/2025 1:00 PM EDT Appointment [address] [address] Roberto Carlos Hancock NP [address] [facility] [place] [address] 01/13/2026 10:30 AM EDT Office Visit [facility] [address] [facility] 12th [place] [address] Gege Cedeno MD [address] [place] [address] [email or web address] documented as of this encounter [...] unspecified documented in this encounter Care Teams Woodwork Teacher Relationship Specialty Start Date End Date Unknown, Unknown, MD [address] [place], [place] PCP - General 01/08/19 05/30/20 Anjelica Clarke MD [facility] [place], [place] PCP - General Internal Medicine 05/31/20 05/11/25 Roberto Carlos Hancock NP [facility] [place], [place] PCP - General Nurse Practitioner 05/12/25 Anjelica Clarke MD [address] [place] [address] Internal Medicine 01/08/19 documented as of this encounter Additional Source Comments The information contained in this document represents components of the legal health record. It is not the complete legal health record.[facility]
--- OUTSIDE RECORDS SUMMARY | 2025-08-18 16:36 | XMS_ITS | Encounter Summary ---
Author Organization [facility] Address [address] [place] [address] [place] [address] Phone Care Team Providers Care Warehouse Worker 2Nd Shift Name Role Phone Calos Valiente MD Primary Care Provider [phone] Niels Sams MD Primary Care Provider [phone] Anjelica Clarke MD Unavailable [phone] Unknown, Unknown Primary Care Provider Anjelica Fajardo MD Primary Care Provider [phone] Roberto Carlos Hancock NP Primary Care Provider + Reason for Referral * MRI/CAT Scan - Closed Specialty Diagnoses / Procedures Referred By Contjulius t Referred To Contact Radiology Diagnoses Other nonspecific abnormal finding of lung field (CODE) Procedures CT Chest Calos Valiente MD Phone: tel: fax: [email or web address] Referral ID Status Reason Start Date Expiration Date Visits Re quested Visits Authorized [id number] Closed 09/24/2017 09/24/2018 1 1 Encounter Details Date Type Department Care Team (Late st Contact Info) Description 09/24/2017 Ancillary Orders [facility] Department 30 [place] [address] Calos Valiente MD [address] [place] [address] [email or web address] nonspecific abnormal finding of lung field [...] Contact Info) Description 05/12/2025 Procedure Pass [address] [address] 12/27/2025 1:00 PM EDT Appointment [address] [address] Roberto Carlos Hancock, SIMON [facility] [place] [address] 01/13/2026 10:30 AM EDT Office Visit [address] [address] Gege Cedeno MD [address] [place] [address] [email or web address] documented as of this encounter Results [...] (CODE) documented in this encounter Care Teams Warehouse Worker 2Nd Shift Relationship Specialty Start Date End Date Calos Valiente MD 70 [place] [address] [email or web address] PCP - General Family Medicine 09/04/17 12/15/17 Niels Sams MD [address] [place] [address] [email or web address] PCP - General Family Medicine 12/16/17 01/07/19 Unknown, MD Nataly [address] [place] [address] PCP - General 01/08/19 05/30/20 Anjelica Clarke MD [address] [place] [address] PCP - General Internal Medicine 05/31/20 05/11/25 Roberto Carlos Hancock NP [address] [place] [address] PCP - General Nurse Practitioner 05/12/25 Anjelica Clarke MD [address] [place] [address] Internal Medicine 01/08/19 documented as of this encounter Additional Source Comments The information contained in this document represents components of the legal health record. It is not the complete legal health record.[facility]
--- OUTSIDE RECORDS SUMMARY | 2025-08-18 16:36 | XMS_ITS | Patient Health Record ---
Author Organization [facility] Address [address] [place] [address] Care Team Providers Care Glass Science Engineer Name Role Phone Anjelica Clarke MD Primary Care Provider Frank Mccoy [phone] Allergies Allergen (clinical drug ingredient) Drug/Non Drug [...] Status Risk Notes Problem Irritable bowel syndrome (40860566) Irritable bowel syndrome (K58.9) Active confirmed Problem Gastroesophageal reflux disease (741612939) Gastroesophageal reflux disease, esophagitis presence not specified (K21.9) Active confirmed Problem Hiatal hernia (28487838) Hiatal hernia (K44.9) Active confirmed Problem Constipation (30318517) Constipation, unspecified constipation type (K59.00) Active confirmed Problem Gastroesophageal reflux disease (694201772) GERD (gastroesophageal reflux disease) (K21.9) Active confirmed Problem Abnormal findings diagnostic imaging of liver and biliary tract (600133671) Abnormal gallbladder ultrasound (R93.2) Active confirmed Problem Left lower quadrant pain (976108187) Left lower quadrant abdominal pain (R10.32) Active confirmed Encounters Encounter Location Date Provider Diagnosis [facility] [address] [place] [address] 01/12/2025 Frank Avila Plan Of Treatment Future Test Test Name Order Date UPPER GI ENDOSCOPY 04/26/2020 Insurance Providers Payer Name Payer Address Payer Phone Subscriber Number Group Number Insured Name Patient Relationship to Insured Coverage Start Date Coverage End Date MEDICARE OF [place] [address] [facility] [address] [id number] ROCIO HENSON Self - patient is the insured [facility] SUPPLEMENTAL PLAN [address] [place], [place] [address] [phone] [id number] ROCIO HENSON Self - patient is the insured Medical (General) History Medical History History ICD Code Denies GA,DM,CVA,Lung disease,renal dise ase She reports three previous c olonoscopies with the [facility]--she reports a hx of colon [...] any sign of malignancy Partial thyroidectomy at [facility] in 2021 for benign lesion
--- OUTSIDE RECORDS SUMMARY | 2025-08-18 16:36 | XMS_ITS | Encounter Summary ---
Author Organization [facility] Address [facility] [address] [place] [address] Phone Care Team Providers Care Medical Sociologist Name Role Phone Anjelica Clarke MD Unavailable [phone] Anjelica Clarke MD Primary Care Provider [phone] Roberto Carlos Hancock NP Primary Care Provider + Encounter Details Date Type Department Care Team (Late st Contact Info) Description 03/23/2022 Procedure Pass [address] [address] Social History Tobacco Use Types Packs/Day Years [...] st Contact Info) Description 05/12/2025 Procedure Pass [address] [address] 12/27/2025 1:00 PM EDT Appointment [address] [address] Roberto Carlos Hancock NP [address] [place] [address] [place] [address] 01/13/2026 10:30 AM EDT Office Visit [facility] [address] 12th [place] [address] Gege Cedeno MD [address] [place] [address] [email or web address] documented as of this encounter Visit Diagnoses Not on filedocumented in this encounter Care Teams Medical Sociologist Relationship Specialty Start Date End Date Anjelica Clarke MD [address] [place] [address] PCP - General Internal Medicine 05/31/20 05/11/25 Roberto Carlos Hancock NP [address] [place] [address] [place] [address] PCP - General Nurse Practitioner 05/12/25 Anjelica Clarke MD [address] [place] [address] Internal Medicine 01/08/19 documented as of this encounter Additional Source Comments The information contained in this document represents components of the legal health record. It is not the complete legal health record.[facility]
--- OUTSIDE RECORDS SUMMARY | 2025-08-18 16:36 | XMS_ITS | Encounter Summary ---
Author Organization [facility] Address [facility] [address] [address] Phone Care Team Providers Care Senior Product Development Manager Name Role Phone Niels Sams MD Primary Care Provider [phone] Anjelica Clarke MD Unavailable [phone] Unknown, Unknown Primary Care Provider Anjelica Fajardo MD Primary Care Provider [phone] Roberto Carlos Hancock NP Primary Care Provider + Encounter Details Date Type Department Care Team (Late Contact Info) Description 11/21/2018 Ancillary Orders Virtual Department 30 [place] [address] Niels Sams MD 70 [place] [address] Breast screening Social History Tobacco Use Types [...] Contact Info) Description 05/12/2025 Procedure Pass [address] [address] 12/27/2025 1:00 PM EDT Appointment [address] [address] Roberto Carlos Hancock, SIMON [address] [facility] [place] [address] 01/13/2026 10:30 AM EDT Office Visit [address] [address] Gege Cedeno MD [address] [place] [address] [email or web address] documented as of this [...] There are scattered fibroglandular densities. POS - [id number] Narrative 01/28/2019 6:46 PM EDT FINDINGS: Bilateral [...] There are scattered fibroglandular densities. POS - [id number] Niels Sams MD IMG MG EXAMS Final Result documented in this encounter Visit Diagnoses Diagnosis Breast screening Breast screening, unspecified Breast screening Breast screening, unspecified documented in this encounter Care Teams Senior Product Development Manager Relationship Specialty Start Date End Date Niels Sams MD [email or web address] PCP - General Family Medicine 12/16/17 01/07/19 Unknown, Nataly, [address] [place] [address] [facility] [place] PCP - General 01/08/19 05/30/20 Anjelica Clarke MD [facility] [place] PCP - General Internal Medicine 05/31/20 05/11/25 Roberto Carlos Hancock NP [address] [place] [address] [place] PCP - General Nurse Practitioner 05/12/25 Anjelica Clarke MD [facility] [place] [address] Internal Medicine 01/08/19 documented as of this encounter Additional Source Comments The information contained in this document represents components of the legal health record. It is not the complete legal health record.[facility]
--- OUTSIDE RECORDS SUMMARY | 2025-08-18 16:36 | XMS_ITS | Encounter Summary ---
Author Organization [facility] Address [address] [facility] [address] [place] [address] Phone Care Team Providers Care Infection Prevention Specialist Name Role Phone Anjelica Clarke MD Unavailable [phone] Anjelica Clarke MD Primary Care Provider [phone] Roberto Carlos Hancock NP Primary Care Provider + Encounter Details Date Type Department Care Team (Late st Contact Info) Description 03/23/2022 Transcribe Orders Virtual Department 30 [place] [address] Anjelica Clarke MD [facility] [place] [address] Encounter for screening mammogram for malignant neoplasm [...] st Contact Info) Description 05/12/2025 Procedure Pass [address] [address] 12/27/2025 1:00 PM EDT Appointment [address] [address] Roberto Carlos Hancock NP [address] [place] [address] 01/13/2026 10:30 AM EDT Office Visit [facility] [address] [facility] 12th [place] [address] Gege Cedeno MD [address] [place] [address] [email or web address] documented as of [...] breast documented in this encounter Care Teams Infection Prevention Specialist Relationship Specialty Start Date End Date Anjelica Clarke MD [address] [place] [address] PCP - General Internal Medicine 05/31/20 05/11/25 Roberto Carlos Hancock NP [address] [place] [address] [place] [address] PCP - General Nurse Practitioner 05/12/25 Anjelica Clarke MD [address] [place] [address] Internal Medicine 01/08/19 documented as of this encounter Additional Source Comments The information contained in this document represents components of the legal health record. It is not the complete legal health record.[facility]
--- OUTSIDE RECORDS SUMMARY | 2025-08-18 16:36 | XMS_ITS | Encounter Summary ---
Author Organization [facility] Address [facility] [address] [place] [address] Phone Care Team Providers Care Laundromat Worker Name Role Phone Anjelica Clarke MD Unavailable [phone] Unknown, Unknown Primary Care Provider Anjelica Fajardo MD Primary Care Provider [phone] Roberto Carlos Hancock NP Primary Care Provider + Encounter Details Date Type Department Care Team (Late st Contact Info) Description 05/24/2020 Procedure Pass [address] [address] Social History Tobacco Use Types Packs/Day Years [...] st Contact Info) Description 05/12/2025 Procedure Pass [address] [address] 12/27/2025 1:00 PM EDT Appointment [facility] 30 [place] [address] Roberto Calros Hancock NP [address] [facility] [address] [place] 01/13/2026 10:30 AM EDT Office Visit [facility] [address] [facility] 12th [place] [address] Gege Cedeno MD [address] [place] [address] [email or web address] documented as of this encounter Visit Diagnoses Not on filedocumented in this encounter Care Teams Laundromat Worker Relationship Specialty Start Date End Date Unknown, Unknown, MD [address] [place], [place] PCP - General 01/08/19 05/30/20 Anjelica Calrke MD [address] [place] [address] PCP - General Internal Medicine 05/31/20 05/11/25 Roberto Carlos Hancock NP [facility] [address] [place] PCP - General Nurse Practitioner 05/12/25 Anjelica Clarke MD [address] [place] [address] Internal Medicine 01/08/19 documented as of this encounter Additional Source Comments The information contained in this document represents components of the legal health record. It is not the complete legal health record.[facility]
--- OUTSIDE RECORDS SUMMARY | 2025-08-18 16:36 | XMS_ITS | Encounter Summary ---
Author Organization [facility] Address [facility] [address] [place] [address] Phone Care Team Providers Care Accounts Collector Name Role Phone Calos Valiente MD Primary Care Provider [phone] Niels Sams MD Primary Care Provider [phone] Anjelica Clarke MD Unavailable [phone] Unknown, Unknown Primary Care Provider Anjelica Fajardo MD Primary Care Provider [phone] Roberto Carlos Hancock NP Primary Care Provider + Encounter Details Date Type Department Care Team (Latest Contact Info) Description 10/02/2017 Transcribe Orders [facility] Phleb Billie [address] [phone] Madina Bernal PA 10 [place] [address] Abdominal pain, left lower quadrant (Primary Dx) [...] st Contact Info) Description 05/12/2025 Procedure Pass [address] [address] 12/27/2025 1:00 PM EDT Appointment [address] [address] Roberto Carlos Hancock, SIMON [facility] [place] [address] 01/13/2026 10:30 AM EDT Office Visit [address] [address] Gege Cedeno MD [address] [place] [address] [email or web address] documented as of this encounter Results * C-Reactive Protein (10/02/2017 12:17 PM EST) C REACTIVE PROTEIN 0.1 0 - 0.5 mg/L [facility] Blood 10/02/2017 12:1 7 PM EST 10/02/2017 12:20 PM EST us Madina NUR LAB BLOOD BKR ORDERABLES Fi nal Result [address] [address] * Comprehensive metabolic panel (10/02/2017 12:17 PM EST) SODIUM 142 133 - 146 mmol/L [facility] POTASSIUM 4.5 3.3 - 5.1 mmol/L [facility] CHLORIDE 102 96 - 108 mmol/L [facility] CO2 30 21 - 35 mmol/L [facility] BUN 18 6 - 19 mg/dL [facility] CREATININE 0.60 0.5 - 1.5 mg/dL [facility] GLUCOSE 95 70 - 99 mg/dL [facility] ALBUMIN 4.5 3.9 - 4.8 g/dL [facility] TOTAL PROTEIN 7.4 6.5 - 8.0 g/dL [facility] CALCIUM 9.8 8.4 - 10.3 mg/dL [facility] ALKALINE PHOSPHATASE 63 39 - 117 U/L [facility] TOTAL BILIRUBIN 0.4 0 - 1.2 mg/dL [facility] AST 19 0 - 37 U/L [facility] ALT 10 0 - 40 U/L [facility] GLOBULIN 2.9 1 - 4.8 g/dL [facility] EGFR >60 mL/min/1.7 3m2 [facility] Comment:Abnormal if <60. If patient is -British, multiply the result by 1.21. ANION GAP 15 10 - 20 mmol/L [facility] Blood 10/02/2017 12:1 7 PM EST 10/02/2017 12:20 PM EST us Madina NUR LAB BLOOD BKR ORDERABLES Fi nal Result [facility] [address] [place] [address] * CBC and differential (10/02/2017 12:17 PM EST) WBC 6.61 3.40 - 11.20 K/uL [facility] RBC 4.65 3.80 - 4.80 M/uL [facility] HGB 13.7 12.0 - 15.0 g/dL [facility] HCT 42.5 36.0 - 46.0 % [facility] PLT 268 130 - 400 K/uL [facility] MCV 91.4 79.0 - 98.0 fL [facility] MCH 29.5 27.0 - 34.8 pg [facility] MCHC 32.2 31.5 - 36.0 g/dL [facility] RDW 13.3 10.8 - 14.6 % [facility] MPV 10.4 9.4 - 12.4 fl [facility] NRBC 0.00 /100 WBCs [facility] ABSOLUTE NRBC 0.00 K/uL [facility] DIFF METHOD Auto [facility] NEUTS 56.3 45.30 - 77.70 % [facility] LYMPHS 34.5 12.30 - 39.70 % [facility] MONOS 7.1 4.10 - 12.80 % [facility] EOS 1.4 0 - 7.2 % [facility] BASOS 0.2 0 - 2.80 % [facility] Granulocytes, immature (%) 0.5 0.0 - 0.9 % [facility] ABSOLUTE NEUTS 3.73 1.40 - 7.70 K/uL [facility] ABSOLUTE LYMPHS 2.28 0.60 - 3.20 K/uL [facility] ABSOLUTE MONOS 0.47 0.11 - 0.59 K/uL [facility] ABSOLUTE EOS 0.09 0.01 - 0.50 K/uL [facility] ABSOLUTE BASOS 0.01 0.00 - 0.08 K/uL [facility] Granulocytes, immature 0.03 0.00 - 0.05 K/uL [facility] Blood 10/02/2017 12:1 7 PM EST 10/02/2017 12:20 PM EST us Madina NUR LAB BLOOD BKR ORDERABLES Fi nal Result Performing Organization Address City/State/[facility] Co de Phone Number [facility] [address] [place] [address] documented in this encounter Visit Diagnoses Diagnosis Abdominal pain, left lower quadrant- Primary documented in this encounter Care Teams Accounts Collector Relationship Specialty Start Date End Date Calos Valiente MD [address] [place] [address] [email or web address] PCP - General Family Medicine 09/04/17 12/15/17 Niels Sams MD [address] [place] [address] PCP - General Family Medicine 12/16/17 01/07/19 Unknown, Unknown, [address] [place] [address] [place] PCP - General 01/08/19 05/30/20 Anjelica Clarke MD [address] [place] [address] [place] PCP - General Internal Medicine 05/31/20 05/11/25 Roberto Carlos Hancock NP [address] [place] [address] [place] PCP - General Nurse Practitioner 05/12/25 Anjelica Clarke MD [address] [place] [address] [facility] [place] [place] Internal Medicine 01/08/19 documented as of this encounter Additional Source Comments The information contained in this document represents components of the legal health record. It is not the complete legal health record.[facility]
--- OUTSIDE RECORDS SUMMARY | 2025-08-18 16:36 | XMS_ITS | Encounter Summary ---
Author Organization [facility] Address [facility] [address] [place] [address] Phone Care Team Providers Care Brazer Helper Induction Name Role Phone Calos Valiente MD Primary Care Provider [phone] Niels Sams MD Primary Care Provider [phone] Anjelica Clarke MD Unavailable [phone] Unknown, Unknown Primary Care Provider Anjelica Fajardo MD Primary Care Provider [phone] Roberto Carlos Hancock NP Primary Care Provider + Encounter Details Date Type Department Care Team (Late st Contact Info) Description 09/12/2017 Procedure Pass [facility] DEPT [address] [place] [address] Social History Tobacco Use Types Packs/Day Years [...] st Contact Info) Description 05/12/2025 Procedure Pass [address] [address] 12/27/2025 1:00 PM EDT Appointment [address] [address] Roberto Carlos Hancock NP 1960 [facility] [place] [address] 01/13/2026 10:30 AM EDT Office Visit [facility] 243 [facility] [address]th [place] [address] Gege Cedeno MD [address] [place] [address] [email or web address] documented as of this encounter Visit Diagnoses Not on filedocumented in this encounter Care Teams Brazer Helper Induction Relationship Specialty Start Date End Date Calos Valiente MD [address] [place] [address] [email or web address] PCP - General Family Medicine 09/04/17 12/15/17 Niels Sams MD [address] [place] [address] [email or web address] PCP - General Family Medicine 12/16/17 01/07/19 Unknown, Nataly, 1960 [place], [place] PCP - General 01/08/19 05/30/20 Anjelica Clarke MD [facility] [place] PCP - General Internal Medicine 05/31/20 05/11/25 Roberto Carlos Hancock NP [facility] [address] [place] PCP - General Nurse Practitioner 05/12/25 Anjelica Clarke MD [address] [place] [address] Internal Medicine 01/08/19 documented as of this encounter Additional Source Comments The information contained in this document represents components of the legal health record. It is not the complete legal health record.[facility]
--- OUTSIDE RECORDS SUMMARY | 2025-08-18 16:36 | XMS_ITS | Encounter Summary ---
Author Organization [facility] Address [address] [facility] [address] [place] [address] Phone Care Team Providers Care Disk Recoater Name Role Phone Anjelica Clarke MD Unavailable [phone] Anjelica Clarke MD Primary Care Provider [phone] Roberto Carlos Hancock NP Primary Care Provider + Encounter Details Date Type Department Care Team (Late st Contact Info) Description 04/03/2024 Telephone [facility] [address] [place] [address] Gege Cedeno MD [address] [place] [address] [email or web address] Social History Tobacco [...] st Contact Info) Description 05/12/2025 Procedure Pass [address] [address] 12/27/2025 1:00 PM EDT Appointment [address] [address] Roberto Carlos Hancock NP [address] [place] [address] [place] [address] 01/13/2026 10:30 AM EDT Office Visit [facility] [address] [place] [address] Gege Cedeno MD [address] [place] [address] [email or web address] documented as of this encounter Visit Diagnoses Not on filedocumented in this encounter Care Teams Disk Recoater Relationship Specialty Start Date End Date Anjelica Clarke MD [address] [place] [address] PCP - General Internal Medicine 05/31/20 05/11/25 Roberto Carlos Hancock NP [address] [place] [address] [place] [address] PCP - General Nurse Practitioner 05/12/25 Anjelica Clarke MD [address] [place] [address] Internal Medicine 01/08/19 documented as of this encounter Additional Source Comments The information contained in this document represents components of the legal health record. It is not the complete legal health record.[facility]
--- OUTSIDE RECORDS SUMMARY | 2025-08-18 16:36 | XMS_ITS | Encounter Summary ---
Author Organization [facility] Address [facility] [employer] [facility] [address] [place] [address] Phone Care Team Providers Care Tower Attendant Name Role Phone Niels Sams MD Primary Care Provider Anjelica Clarke MD Unavailable [phone] Unknown, Unknown Primary Care Provider Anjelica Fajardo MD Primary Care Provider [phone] Roberto Carlos Hancock NP Primary Care Provider + Encounter Details Date Type Department Care Team (Latest Contact Info) Description 12/18/2017 Transcribe Orders [facility] [address] 2[address] [place] [address] Tru Roberts MD [address] [address] Abdominal pain, left lower quadrant (Primary Dx); [...] st Contact Info) Description 05/12/2025 Procedure Pass [address] [address] 12/27/2025 1:00 PM EDT Appointment [address] [address] Roberto Carlos Hancock, SIMON [address] [place] [address] [place] [address] 01/13/2026 10:30 AM EDT Office Visit [address] [place] [address] Gege Cedeno MD [address] [place] [address] [email or web address] documented as of this encounter Results * Immunoglobulin A (12/18/2017 11:36 AM EDT) IgA 376 70 - 400 mg/dL [facility] Blood 12/18/2017 11:3 6 AM EDT 12/18/2017 11:42 AM EDT us Tru Roberts MD LAB BLOOD BKR ORDERABLES José Miguel al Result [address] [address] * LFTs (hepatic panel) (12/18/2017 11:36 AM EDT) ALKALINE PHOSPHATASE 60 39 - 117 U/L [facility] TOTAL BILIRUBIN 0.4 0.0 - 1.2 mg/dL [facility] DIRECT BILIRUBIN <0.2 0 - 0.3 mg/dL [facility] Bilirubin (Indirect) NOT CALCULATED 0 - 1.5 mg/dL [facility] AST 17 0 - 37 U/L [facility] ALT 11 0 - 40 U/L [facility] TOTAL PROTEIN 6.9 6.5 - 8.0 g/dL [facility] ALBUMIN 4.1 3.9 - 4.8 g/dL [facility] GLOBULIN 2.8 1 - 4.8 g/dL [facility] A/G Ratio 1.46 1.00 - 4.80 RATIO [facility] Blood 12/18/2017 11:3 6 AM EDT 12/18/2017 11:42 AM EDT us Tru Roberts MD LAB BLOOD BKR ORDERABLES Fin al Result Performing Organization Address City/[facility]/ZIP Co de Phone Number [address] [address] * C-Reactive Protein (12/18/2017 11:36 AM EDT) C REACTIVE PROTEIN 0.1 0 - 0.5 mg/L [facility] Blood 12/18/2017 11:3 6 AM EDT 12/18/2017 11:42 AM EDT us Tru Roberts MD LAB BLOOD BKR ORDERABLES Fin al Result Performing Organization Address City/[facility]/ZIP Co de Phone Number [address] [address] * Tissue transglutaminase IgA (12/18/2017 11:36 AM EDT) TTG IGA ANTIBODY <1.2 <4.0 (Negative) U/mL [facility] DPT OF LAB MED AND PAT+ Blood 12/18/2017 11:3 6 AM EDT 12/18/2017 11:41 AM EDT us Tru Roberts MD LAB BLOOD BKR ORDERABLES Fin al Result [facility] DPT OF LAB MED AND PAT+ [address] [place] [address] * CBC and differential (12/18/2017 11:36 AM EDT) WBC 5.80 3.40 - 11.20 K/uL [facility] RBC 4.48 3.80 - 4.80 M/uL [facility] HGB 13.2 12.0 - 15.0 g/dL [facility] HCT 40.5 36.0 - 46.0 % [facility] PLT 249 130 - 400 K/uL [facility] MCV 90.4 79.0 - 98.0 fL [facility] MCH 29.5 27.0 - 34.8 pg [facility] MCHC 32.6 31.5 - 36.0 g/dL [facility] RDW 13.2 10.8 - 14.6 % [facility] MPV 10.4 9.4 - 12.4 fl [facility] NRBC 0.00 /100 WBCs [facility] ABSOLUTE NRBC 0.00 K/uL [facility] DIFF METHOD Auto [facility] NEUTS 54.6 45.30 - 77.70 % [facility] LYMPHS 35.9 12.30 - 39.70 % [facility] MONOS 6.9 4.10 - 12.80 % [facility] EOS 2.1 0 - 7.2 % [facility] BASOS 0.3 0 - 2.80 % [facility] Granulocytes, immature (%) 0.2 0.0 - 0.9 % [facility] ABSOLUTE NEUTS 3.17 1.40 - 7.70 K/uL [facility] ABSOLUTE LYMPHS 2.08 0.60 - 3.20 K/uL [facility] ABSOLUTE MONOS 0.40 0.11 - 0.59 K/uL [facility] ABSOLUTE EOS 0.12 0.01 - 0.50 K/uL [facility] ABSOLUTE BASOS 0.02 0.00 - 0.08 K/uL [facility] Granulocytes, immature 0.01 0.00 - 0.05 K/uL [facility] Blood 12/18/2017 11:3 6 AM EDT 12/18/2017 11:42 AM EDT us Tru Roberts MD LAB BLOOD BKR ORDERABLES Fin al Result [facility] [address] [place] [address] documented in this encounter Visit Diagnoses Diagnosis Abdominal pain, left lower quadrant- Primary Abdominal distention Flatulence, eructation, and gas pain 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 documented in this encounter Care Teams Tower Attendant Relationship Specialty Start Date End Date Niels Sams MD [email or web address] PCP - General Family Medicine 12/16/17 01/07/19 Unknown, Unknown, [address] [place] [address] PCP - General 01/08/19 05/30/20 Anjelica Clarke MD [address] [place] [address] PCP - General Internal Medicine 05/31/20 05/11/25 Roberto Carlos Hancock NP [address] [place] [address] PCP - General Nurse Practitioner 05/12/25 Anjelica Clarke MD [address] [place] [address] Internal Medicine 01/08/19 documented as of this encounter Additional Source Comments The information contained in this document represents components of the legal health record. It is not the complete legal health record.[facility]
--- OUTSIDE RECORDS SUMMARY | 2025-08-18 16:36 | XMS_ITS | Encounter Summary ---
Author Organization [facility] Address [facility] [employer] [address] [address] Phone Care Team Providers Care Production Line Worker Name Role Phone Niels Sams MD Primary Care Provider [phone] Anjelica Clarke MD Unavailable [phone] Unknown, Unknown Primary Care Provider Anjelica Fajardo MD Primary Care Provider [phone] Roberto Carlos Hancock NP Primary Care Provider + Encounter Details Date Type Department Care Team (Late st Contact Info) Description 12/16/2017 Ancillary Orders [facility] External Provider Virtual Department [address] [place] [address] Niels Sams MD [address] [place] [address] [email or web address] Breast screening Social History Tobacco Use Types [...] Contact Info) Description 05/12/2025 Procedure Pass [address] [address] 12/27/2025 1:00 PM EDT Appointment [address] [address] Roberto Carlos Hancock, SIMON [facility] [place] [address] 01/13/2026 10:30 AM EDT Office Visit [facility] [address] [address] Gege Cedeno MD [address] [place] [address] [email or web address] documented as of this encounter Results * [...] lowers the sensitivity of mammography. POS - [id number] Narrative 01/27/2018 12:49 PM EDT Full-field digital [...] whichlowers the sensitivity of mammography. POS - [id number] Niels Sams MD IMG MG EXAMS Final Result documented in this encounter Visit Diagnoses Diagnosis Breast screening Breast screening, unspecified Breast screening Breast screening, unspecified documented in this encounter Care Teams Production Line Worker Relationship Specialty Start Date End Date Niels Sams MD PCP - General Family Medicine 12/16/17 01/07/19 Unknown, Nataly, [address] [place] [address] [facility] PCP - General 01/08/19 05/30/20 Anjelica Clarke MD [facility] POP [place] PCP - General Internal Medicine 05/31/20 05/11/25 Roberto Carlos Hancock NP [address] [place] [address] Pop [place] PCP - General Nurse Practitioner 05/12/25 Anjeilca Clarke MD [address] [place] [address] Internal Medicine 01/08/19 documented as of this encounter Additional Source Comments The information contained in this document represents components of the legal health record. It is not the complete legal health record.[facility]
--- OUTSIDE RECORDS SUMMARY | 2025-08-18 16:36 | XMS_ITS | Encounter Summary ---
Author Organization [facility] Address [address] [place] [address] Phone Care Team Providers Care Hide Grader Name Role Phone Anjelica Clarke MD Unavailable [phone] Anjelica Clarke MD Primary Care Provider [phone] Roberto Carlos Hancock NP Primary Care Provider + Encounter Details Date Type Department Care Team (Late st Contact Info) Description 04/05/2023 Procedure Pass [facility], [address] [id number] Social History Tobacco Use Types Packs/Day Years [...] Contact Info) Description 05/12/2025 Procedure Pass [address] [address] 12/27/2025 1:00 PM EDT Appointment [address] [address] Roberto Carlos Hancock NP [address] [place] [address] [place] [address] 01/13/2026 10:30 AM EDT Office Visit [address] 12th [place] [address] Gege Cedeno MD [address] [place] [address] [email or web address] documented as of this encounter Visit Diagnoses Not on filedocumented in this encounter Care Teams Hide Grader Relationship Specialty Start Date End Date Anjelica Clarke MD [address] [place] [address] PCP - General Internal Medicine 05/31/20 05/11/25 Roberto Carlos Hancock NP [address] [place] [address] [place] [address] PCP - General Nurse Practitioner 05/12/25 Anjelica Clarke MD [address] [place] [address] [place] Internal Medicine 01/08/19 documented as of this encounter Additional Source Comments The information contained in this document represents components of the legal health record. It is not the complete legal health record.[facility]
--- OUTSIDE RECORDS SUMMARY | 2025-08-18 16:36 | XMS_ITS | Encounter Summary ---
Author Organization [facility] Address [facility] [address] [place] [address] Phone Care Team Providers Care Education Paraprofessional Name Role Phone Anjelica Clarke MD Unavailable [phone] Anjelica Clarke MD Primary Care Provider [phone] Roberto Carlos Hancock NP Primary Care Provider + Encounter Details Date Type Department Care Team (Late st Contact Info) Description 06/01/2020 Procedure Pass [address] [address] Social History Tobacco Use Types Packs/Day Years [...] st Contact Info) Description 05/12/2025 Procedure Pass [address] [address] 12/27/2025 1:00 PM EDT Appointment [address] [address] Roberto Carlos Hancock NP [address] [place] [address] [place] [address] 01/13/2026 10:30 AM EDT Office Visit [facility] [address] 12th [place] [address] Gege Cedeno MD [address] [place] [address] [email or web address] documented as of this encounter Visit Diagnoses Not on filedocumented in this encounter Care Teams Education Paraprofessional Relationship Specialty Start Date End Date Anjelica Clarke MD [address] [place] [address] PCP - General Internal Medicine 05/31/20 05/11/25 Roberto Carlos Hancock NP [address] [place] [address] [place] [address] PCP - General Nurse Practitioner 05/12/25 Anjelica Clarke MD [address] [place] [address] Internal Medicine 01/08/19 documented as of this encounter Additional Source Comments The information contained in this document represents components of the legal health record. It is not the complete legal health record.[facility]
--- OUTSIDE RECORDS SUMMARY | 2025-08-18 16:36 | XMS_ITS | Encounter Summary ---
Author Organization [facility] Address [facility] [address] [place] [address] Phone Care Team Providers Care Advanced Registered Nurse Name Role Phone Anjelica Clarke MD Unavailable [phone] Anjelica Clarke MD Primary Care Provider [phone] Roberto Carlos Hancock NP Primary Care Provider + Encounter Details Date Type Department Care Team (Late st Contact Info) Description 04/04/2021 Procedure Pass [address] [address] Social History Tobacco Use Types Packs/Day Years [...] Contact Info) Description 05/12/2025 Procedure Pass [address] [address] 12/27/2025 1:00 PM EDT Appointment [address] [address] Roberto Carlos Hancock NP [address] [place] [address] [place] [address] 01/13/2026 10:30 AM EDT Office Visit [facility] [address] [place] [address] Gege Cedeno MD [address] [place] [address] [email or web address] documented as of this encounter Visit Diagnoses Not on filedocumented in this encounter Care Teams Advanced Registered Nurse Relationship Specialty Start Date End Date Anjelica Clarke MD [address] [place] [address] PCP - General Internal Medicine 05/31/20 05/11/25 Roberto Carlos Hancock NP [address] [place] [address] [place] [address] PCP - General Nurse Practitioner 05/12/25 Anjelica Clarke MD [address] [place] [address] Internal Medicine 01/08/19 documented as of this encounter Additional Source Comments The information contained in this document represents components of the legal health record. It is not the complete legal health record.[facility]
--- OUTSIDE RECORDS SUMMARY | 2025-08-18 16:36 | XMS_ITS | Encounter Summary ---
Author Organization [facility] Address [address] [place] [address] Phone Care Team Providers Care Nuclear Fuels Research Engineer Name Role Phone Anjelica Clarke MD Unavailable [phone] Anjelica Clarke MD Primary Care Provider [phone] Roberto Carlos Hancock NP Primary Care Provider + Encounter Details Date Type Department Care Team (Late st Contact Info) Description 04/13/2024 Procedure Pass [facility], [address] [phone] Social History Tobacco Use Types Packs/Day Years [...] st Contact Info) Description 05/12/2025 Procedure Pass [address] [address] 12/27/2025 1:00 PM EDT Appointment [address] [address] Roberto Carlos Hancock NP [address] [place] [address] [place] [address] 01/13/2026 10:30 AM EDT Office Visit [address] 12th [place] [address] Gege Cedeno MD [address] [place] [address] [email or web address] documented as of this encounter Visit Diagnoses Not on filedocumented in this encounter Care Teams Nuclear Fuels Research Engineer Relationship Specialty Start Date End Date Anjelica Clarke MD [address] [place] [address] PCP - General Internal Medicine 05/31/20 05/11/25 Roberto Carlos Hancock NP [address] [place] [address] [place] [address] PCP - General Nurse Practitioner 05/12/25 Anjelica Clarke MD [address] [place] [address] [place] Internal Medicine 01/08/19 documented as of this encounter Additional Source Comments The information contained in this document represents components of the legal health record. It is not the complete legal health record.[facility]
== END 2025-08-18 13:58 | disposition home or self-care (01) ==
LOC: HO.HOS 13:29
PROVIDERS: PCP Nurse Practitioner Family
DX: R22.32 Localized swelling, mass and lump, left upper limb (principal)
CPT/HCPCS: 99213

== ENCOUNTER → 2025-08-18 13:28 | Outpatient (BNVA) | payer MEDICARE, SELFPAY | PROVIDERS: PCP Nurse Practitioner Family | DX: R22.32 Localized swelling, mass and lump, left upper limb (principal) | CPT/HCPCS: 99212 ==

== ENCOUNTER 2025-08-27 12:04 | Emergency (ER) | payer MEDICARE, SELFPAY ==
[2025-08-27 12:19] VITALS: BP 163/77; BP 163/92; PULSE 93; PULSE 95; RESP 20; TEMP 36; O2SAT 94; O2SAT 97; BMI 25.4
[2025-08-27 12:51] LABS: MANUAL DIFF FLAG NO
[2025-08-27 12:57] LABS: Hematocrit 40.2 % (37.0-47.0); Hemoglobin 13.0 g/dl (12.0-16.0); Imm Gran Abs Auto 0.03 X10*3/uL (0.00-0.03); Imm Gran Pct Auto 0.6 % (0.0-0.4); Lymphocytes Absolute Auto 1.2 X10*3/uL (1.2-4.9); Mean Corpuscular HGB Conc 32.3 g/dl (31.0-35.0); Mean Corpuscular Hemoglobin 29.7 pg (27.0-33.0); Mean Corpuscular Volume 91.8 fL (80.0-98.0); NRBC Abs Auto 0.000 X10*3/uL (0.0-0.012); NRBC Pct Auto 0.0 /100WBC (0.0-0.2); Platelet Count 230 X10*3/uL (160-400); Red Blood Count 4.38 X10*6/uL (4.20-5.50); White Blood Count 5.4 X10*3/uL (4.8-10.8)
--- NOTE | 2025-08-27 13:00 | ED.GENADULT ---
HPI - General Adult General Chief complaint: General Medical Stated complaint: ALL RX AFTER TAKING MED PROLIAEdd/LUTHER CLEMENTE Time Seen by Provider: 08/27/25 12:50 Source: patient Limitations: no limitations History of Present Illness HPI narrative: This is 84 years old female patient presented to the emergency department with a chief complaint of possible allergic reaction to Prolia (denosumab) monoclonal antibody given for osteoporosis she had the 3rd shot in June. She states now that she as fatigue patient has swelling increasing tremors she fell uneasy. There is no shortness of breath no wheezing no other systemic symptoms the symptoms started about last week Onset (ago): week(s) (1) Radiation: non-radiation Severity: mild Quality: burning Pain Consistency: constant Related Data Home Medications ?Medication ?Instructions ?Recorded ?Confirmed apple cider vinegar 500 mg tablet mg PO 07/28/20 03/19/24 cranberry extract 500 mg tablet 1,000 mg PO TID 07/28/20 03/19/24 ginkgo biloba extract-Panax cap PO 07/28/20 03/19/24 ginseng root extract 60 mg-100 mg capsule vitamin B complex 1 cap PO DAILY 07/28/20 03/19/24 moxifloxacin 0.5 % eye drops drp ophthalmic (eye) 07/20/24 cholecalciferol (vitamin D3) 25 25 mcg PO DAILY 07/13/25 mcg (1,000 unit) capsule Previous Rx's ?Medication ?Instructions ?Recorded hydrocortisone 2.5 % topical cream 1 appl SC BID-QID PRN hemorrhoids 11/01/23 with perineal applicator #30 grams denosumab 60 mg/mL subcutaneous 60 mg subcut [id number] #1 mL 03/18/24 syringe (Prolia) indapamide 1.25 mg tablet 1.25 mg PO QAM #30 tabs 03/09/25 pantoprazole 40 mg tablet,delayed 40 mg PO BID #180 tabs 08/11/25 release prednisone 20 mg tablet 20 mg PO DAILY 4 days #4 tabs 08/27/25 Allergies Allergy/AdvReac Type Severity Reaction Status Date / Time aspirin (ASA) Allergy Intermediate TACHYCARDIA Verified 08/27/25 12:25 buspirone (From BuSpar) Allergy Unknown Stomach Verified 08/27/25 12:25 Upset atorvastatin AdvReac Intermediate Headache Verified 08/27/25 12:25 Sulfa (Sulfonamide AdvReac Intermediate VOMITING Verified 08/27/25 12:25 Antibiotics) (SULFA(SULFONAMIDE ANTIBIOTICS)) chlorthalidone AdvReac Unknown Stomach Verified 08/27/25 12:25 pain, loss of appetite Review of Systems Constitutional: Constitutional: Reports no additional constitutional complaints ENT: Reports system reviewed and no additional complaints, except as documented [facility] Past Medical History Attestation statement: The following information was validated with the patient. [facility] Narrative: Osteoporosis, idiopathic hypercalciuria, goiter Medical History Melanoma, choroid Idiopathic hypercalciuria Vitamin D deficiency Ingrown toenail of right foot Hip fracture, right Multinodular goiter Osteoporosis Surgical History History of lobectomy of thyroid Hx of cholecystectomy H/O colonoscopy Family History Family History Father No problems noted. Mother No problems noted. Social History Social History Housing: House Alcohol intake: never Patient Tobacco Use Status: Never used Tobacco e-Cigarette/Vaping Use: Never Used Second Hand Smoke Exposure: No Advance Directives: Yes Advance Directives Information Provided: No Advance Directives on File: No Current occupational status: retired Cognitive needs: No Hearing needs: No Vision needs: Yes Physical Exam ED Exam Exam: No acute distress comfortable in the stretcher Vital Signs: Vital Signs - 24 hr 08/27/25 12:19 08/27/25 15:36 Temperature 96.8 F Pulse Rate 93 80 Respiratory Rate 20 18 Blood Pressure 163/77 H 162/78 H Pulse Oximetry 94 98 Oxygen Delivery Method Room Air Room Air BMI result Body Mass Index 25.4 Looks well Const General: cooperative and no acute distress Nutritional Appearance: average body habitus Orientation/consciousness: patient oriented x3 Limitations: no limitations HENMT Head: Yes normal to inspection General nose exam: Normal external nose present Face and sinus: Yes normal facial exam Neck Neck: Yes normal visual inspection and Yes full ROM Chest Chest palpation & inspection: normal inspection of the chest Resp Effort & Inspection: normal respiratory effort Auscultation: clear to auscultation bilaterally Cardio Jugular venous distension: no JVD Rate: regular rate Rhythm: regular rhythm GI Inspection: Yes normal to inspection Palpation (GI): Soft to palpation and not firm Percussion: Yes normal to percussion Skin General skin exam: no rashes or lesions noted and elasticity normal Lesions: no lesions Rashes: no rashes Neuro General: patient oriented x3 Extrem Other: No edema Course Reevaluation(s) Reevaluation #1: Patient remained stable vital signs are stable oxygenating well lungs clear anticipate discharge Time: 15:42 Medications Administered Discontinued Medications Generic Name Dose Route Start Last Admin Trade Name Freq PRN Reason Stop Dose Admin Dexamethasone Sodium Phosphate 8 mg 08/27/25 12:56 08/27/25 13:25 Dexamethasone Sod Phosphate 4 Mg/Ml Vial IVPUSH 08/27/25 12:57 8 mg ONCE ONE Administration Sodium Chloride 1,000 mls @ 999 mls/hr 08/27/25 13:00 08/27/25 15:06 Ns IVCONT 08/27/25 14:00 Infused .Q1H1M RICHAR Infusion Loratadine 10 mg 08/27/25 12:56 08/27/25 13:28 Loratadine 10 Mg Tablet PO 08/27/25 12:57 Not Given ONCE ONE Medical Decision Making Medical Decision Making [facility] Narrative: Patient presented with possible side effect/reaction to Prolia denosumab we will check labs we will monitor for couple of hours in the ED I will give a dose of Zyrtec p.o. which is less sedating of Benadryl given her age, also give a dose of Decadron and lungs are clear airway is patent 15:46 patient is stable lungs are clear I think she can be discharged home we will send her home with a low dose of prednisone I am not sure if this isreally allergic reaction. Patient refused the Claritin she says she is allergic to she can not take Pepcid either Differential Diagnosis Differential Diagnoses: The differential diagnosis associated with the presentation includes Allergic reaction to Prolia/anxiety disorder Admission/Observation Consideration of admission/observation: Escalation of care including admission/observation considered Lab Data [facility] Lab Attestation statement: I reviewed the patient's lab results. 08/27/25 12:48 08/27/25 12:48 Labs: Lab Results 08/27/25 Range/Units 12:48 WBC 5.4 (4.8-10.8) X10*3/uL RBC 4.38 (4.20-5.50) X10*6/uL Hgb 13.0 (12.0-16.0) g/dl Hct 40.2 (37.0-47.0) % MCV 91.8 (80.0-98.0) fL MCH 29.7 (27.0-33.0) pg MCHC 32.3 (31.0-35.0) g/dl RDW 13.1 (11.0-16.0) % Plt Count 230 (160-400) X10*3/uL MPV 9.6 (9.4-12.3) fL Immature Gran % (Auto) 0.6 H (0.0-0.4) % Neut % (Auto) 69.5 (45-73) % Lymph % (Auto) 22.4 (20-40) % [place] % (Auto) 6.6 (2-11) % Eos % (Auto) 0.7 (0-4) % Baso % (Auto) 0.2 (0-2) % Lymph # (Auto) 1.2 (1.2-4.9) X10*3/uL [place] # (Auto) 0.4 (0.1-1.2) X10*3/uL Eos # (Auto) 0.0 (0.0-0.4) X10*3/uL Baso # (Auto) 0.0 (0.0-0.2) X10*3/uL Abs Immat Gran (auto) 0.03 (0.00-0.03) X10*3/uL Absolute Neuts (auto) 3.8 (2.0-8.3) x10*3/uL Absolute Nucleated RBC 0.000 (0.0-0.012) X10*3/uL Nucleated RBC % (auto) 0.0 (0.0-0.2) /100WBC Sodium 142 (135-145) mmol/L Potassium 3.5 (3.3-5.1) mmol/L Chloride 105 (96-108) mmol/L Carbon Dioxide 31 H (22-29) mmol/L Anion Gap 10 L (12-20) BUN 17 H (9-16) mg/dL Creatinine 0.67 (0.5-1.4) mg/dL Estim Creat Clear Calc 51.1 Estimated GFR > 60 Random Glucose 144 H (60-115) mg/dL Calcium 9.4 (8.4-10.2) mg/dL Total Bilirubin 0.4 (0.0-1.0) mg/dL AST 19 (5-31) U/L ALT 14 (0-31) U/L Alkaline Phosphatase 46 (39-117) U/L Total Protein 6.7 (6.5-8.0) g/dL Albumin 4.3 (3.5-5.0) g/dL Discharge Plan Discharge Clinical Impression: Medication adverse effect Qualifiers: Encounter type: initial encounter Qualified Code(s): T50.905A - Adverse effect of unspecified drugs, medicaments and biological substances, initial encounter Patient Disposition: Home, Self-Care Additional Instructions: Take prednisone as directed follow-up with your primary care physician on Saturday Prescriptions: New prednisone 20 mg tablet 20 mg PO DAILY 4 Days Qty: 4 0RF No Action Prolia 60 mg/mL syringe 60 mg subcut [id number] Qty: 1 11RF pantoprazole 40 mg tablet,delayed release (DR/EC) 40 mg PO BID Qty: 180 1RF vitamin B complex Capsule 1 cap PO DAILY ginkgo biloba-Panax ginseng rt 60-100 mg capsule PO cranberry extract 500 mg tablet 1,000 mg PO TID Rx Instructions: administer with meals apple cider vinegar 500 mg tablet PO hydrocortisone 2.5 % cream with perineal applicator 1 appl SC BID-QID PRN (Reason: hemorrhoids) Qty: 30 4RF moxifloxacin 0.5 % drops ophthalmic (eye) indapamide 1.25 mg tablet 1.25 mg PO QAM Qty: 30 11RF cholecalciferol (vitamin D3) 25 mcg (1,000 unit) capsule 25 mcg PO DAILY Referrals: Roberto Carlos Hancock, OPERATIONS SPECIALIST-BC [Primary Care Provider, Internal Medicine] - 08/30/25 Print Language: Yoruba
[2025-08-27 13:17] LABS: Alanine Aminotransferase 14 U/L (0-31); Albumin Level 4.3 g/dL (3.5-5.0); Alkaline Phosphatase 46 U/L (39-117); Anion Gap 10 (12-20); Aspartate Amino Transferase 19 U/L (5-31); Blood Urea Nitrogen 17 mg/dL (9-16); Calcium 9.4 mg/dL (8.4-10.2); Carbon Dioxide 31 mmol/L (22-29); Chloride 105 mmol/L (96-108); Creatinine Clr Calc Pharmacy 51.1; Estimated Glomerular Filt Rate > 60; Potassium 3.5 mmol/L (3.3-5.1); Sodium 142 mmol/L (135-145); Total Protein 6.7 g/dL (6.5-8.0)
[2025-08-27 15:36] VITALS: BP 162/78; PULSE 80; RESP 18; O2SAT 98
[2025-08-27 15:49] VITALS: BP 162/78; PULSE 80; RESP 18; TEMP 36.3; O2SAT 98
== END 2025-08-27 15:49 | disposition home or self-care (01) ==
PROVIDERS: Emergency Provider Emergency Medicine; PCP Nurse Practitioner Family
DX: T50.905A Adverse effect of unspecified drugs, medicaments and biological substances, initial encounter (principal); R53.1 Weakness; Y92.89 Other specified places as the place of occurrence of the external cause; R11.0 Nausea; Z79.899 Other long term (current) drug therapy
CPT/HCPCS: 36415; 80053; 85025; 96361; 96374; 99283; 99284; J1100

== ENCOUNTER 2025-09-01 12:26 | Outpatient (AMB) | payer MEDICARE, SELFPAY ==
[2025-09-01 12:40] VITALS: BP 150/78; PULSE 87; RESP 16; O2SAT 95; BMI 25.4
--- NOTE | 2025-09-01 12:40 | A.OFFPC_ITS ---
Vital Signs 09/01/25 12:40 Height 5 ft Weight 130 lb BMI 25.4 BP 150/78 H Blood Pressure Location Lt brachial Position Sitting Respiration 16 Pulse 87 Pulse Source Pulse Oximeter Pulse Oximetry (%) 95 Oxygen Delivery Method Room Air Intake Visit Reasons: HDF ~ Post hospital discharge FU Cart Attendant Required: No Accompanied by: Self / Same As Patient Allergies aspirin (ASA) Allergy (Intermediate, Verified 09/01/25 13:05) TACHYCARDIA buspirone (From BuSpar) Allergy (Unknown, Verified 09/01/25 13:05) Stomach Upset atorvastatin Adverse Reaction (Intermediate, Verified 09/01/25 13:05) Headache Sulfa (Sulfonamide Antibiotics) (SULFA(SULFONAMIDE ANTIBIOTICS)) Adverse Reaction (Intermediate, Verified 09/01/25 13:05) VOMITING chlorthalidone Adverse Reaction (Unknown, Verified 09/01/25 13:05) Stomach pain, loss of appetite Medication List - Last Reconciled 09/01/25 by CANDY Amaya-BC apple cider vinegar mg PO cholecalciferol (vitamin D3) 25 mcg PO DAILY cranberry extract 1,000 mg PO TID ginkgo biloba-Panax ginseng rt 60-100 mg caps PO hydrocortisone 2.5% 1 appl [place] BID-QID PRN indapamide 1.25 mg PO QAM moxifloxacin 0.5% drps ophthalmic (eye) pantoprazole 40 mg PO BID vitamin B complex 1 cap PO DAILY Tobacco use date assessed: 09/01/25 Fall risk assessment: No Falls in past year Last assessed Fall Risk: 09/01/25 Dental Screening Dental Screen Date: 09/01/25 Did you have a dental visit in the last 12 months?: Yes Did you have a dental problem in the last 6 months where you did not have access to dental care?: No Was dental information given to patient?: Patient has dentist HPI HDF ~ Post hospital discharge FU HPI Details Chief Complaint The patient presents for follow-up after an emergency room visit on 08/27/2025 for a possible allergic reaction to a Prolia injection. History of Present Illness The patient is an 84 year old female presenting for follow-up after hospital discharge for a possible allergic reaction to Prolia. She was seen in the emergency room on 08/27/2025 with complaints of severe fatigue, facial swelling, increased tremors, and feeling uneasy after her third Prolia injection for osteoporosis, which was administered in June 2028. She also reported a screaming sound at the top of her head, but denied tinnitus or hearing loss. During the ED visit, she did not have shortness of breath or wheezing. In the emergency department, she was treated with dexamethasone sodium phosphate for a possible allergic reaction and was monitored for a couple of hours. She refused Claritin and Pepcid, citing allergies to both. As of today, she reports the screaming sensation at the top of her head persists? Regarding her osteoporosis treatment, the patient was previously on Fosamax. She is not interested in continuing Prolia and does not want to be on Fosamax currently. She plans to find a different cool roofing installer for consultation. The patient also reports discomfort in the posterior aspect of her left knee, but denies any knee pain. Social History Health Maintenance - The patient has an upcoming appointmen t in December. Review of Systems - General: Reports severe fatigue and fe eling uneasy. - HEENT: Reports facial swelling and a s creaming sound at the top of her head. Denies tinnitus or hearing loss. - Respiratory: Denies shortness of breat h or wheezing. - Musculoskeletal: Reports discomfort in the posterior aspect of her left knee. Denies knee pain. - Neurological: Reports increased tremor s. - Allergic/Immunologic: Reports allergie s to Claritin and Pepcid. Physical Exam General: Cooperative, healthy appearing, comfortable, no acute distress and well developed Orientation: Patient oriented x3 Limitations: No limitations Head: Normal to inspection Ears: Hearing grossly normal bilaterally Nose: Normal external nose present Face and sinus: Normal facial exam Eyes: Appearance normal, both eyes and all related structures Neck: Normal visual inspection and Yes full ROM Respiratory: Normal respiratory effort and able to speak in complete sentences. Clear to auscultation bilaterally Cardiovascular: Regular rate and rhythm. Normal S1 and S2 GI: Normal to inspection. Soft to palpation and nontender Skin: No rashes or lesions noted Neuro: Patient oriented x3 Extremities: Normal to inspection, except for discomfort reported to the posterior aspect of the left knee. No bulging or tenderness with palpation, no calf tenderness, redness, or swelling noted. Negative Jing's and Martin's tests. Results - Labs: Performed in the emergency depar tment, with no acute findings. Plan 1. Adverse Effect Of Denosumab The patient presented to the ED for a possible allergic reaction to Prolia, given for osteoporosis. She has decided to discontinue Prolia and is not currently interested in restarting Fosamax. She will seek a consultation with a new cool roofing installer for future management of her osteoporosis. 2. Knee Pain The patient reports discomfort in the posterior aspect of her left knee. An ultrasound will be ordered to rule out a Bales's cyst. 3. Auditory Hallucination The patient continues to experience a screaming sensation at the top of her head, which is noted to be a known side effect (according to pt)??? Discussion Notes Patient Instructions - You will not receive Prolia injections anymore. - You should find a new cool roofing installer (a doctor who specializes in hormones) to discuss other options for your osteoporosis. - We will schedule an ultrasound of your left knee to check for a Bales's cyst, which might be causing the discomfort. - Keep your follow-up appointment with sam brandt in December. [facility] Medical History Melanoma, choroid Idiopathic hypercalciuria Vitamin D deficiency Ingrown toenail of right foot Hip fracture, right Multinodular goiter Osteoporosis Surgical History History of lobectomy of thyroid Hx of cholecystectomy H/O colonoscopy Family History Father No problems noted. Mother No problems noted. Social History Housing: House Alcohol intake: never Patient Tobacco Use Status: Never used Tobacco e-Cigarette/Vaping Use: Never Used Second Hand Smoke Exposure: No Current occupational status: retired Cognitive needs: No Hearing needs: No Vision needs: Yes Questionnaire Thrive Questionnaire Date Thrive assessed: 03/02/25 I am a: Patient What is your living situation today?: I have a steady place to live Within the past 12 months, did the food you bought not last and you didn't have the money to get more?: I choose not to answer this question Within the past 12 months, did you worry whether your food would run out before you got money to buy more?: I choose not to answer this question Do you have trouble paying for medicines?: No Do you have trouble getting transportation to medical appointments?: No Do you have trouble paying your heating and electricity bill?: No Do you have trouble taking care of your child, family member or friend?: No Do you have trouble with day-to-day activities such as bathing, preparing meals, shopping, managing finances, etc.?: No Are you currently unemployed and looking for a job?: No Are you interested in more education?: No Please select the resources that you would like help with: None Currently or been in a relationship where the following occur: No concerns reported THRIVE Score: 0 LAUREN-7 AMB Questionnaire LAUREN-7 Date LAUREN - 7 assessed: 03/09/25 Source: Developed by Drs. Frank Estrada, Lorena Macias, Serafin De Dios and colleagues, with an educational maggie from [employer] Physical exam (Primary Care) Vital Signs: Last Vital Signs Pulse 87 09/01/25 12:40 Resp 16 09/01/25 12:40 BP 150/78 H 09/01/25 12:40 Pulse Ox 95 09/01/25 12:40 Oxygen Delivery Method Room Air 09/01/25 12:40 BMI result Body Mass Index 25.4 Tobacco/Smoking Status: Tobacco use Status Tobacco use date assessed 09/01/25 09/01/25 12:43 Patient Tobacco Use Status Never used Tobacco 09/01/25 12:43 e-Cigarette/Vaping Use Never Used 09/01/25 12:43 Thrive Assessment: Date of Thrive Assessment Date Thrive assessed 03/02/25 09/01/25 12:43 Currently or been in a relationship where the following occur: No concerns reported Coding Level of Care Code Est Pt Level 4 (21572) Diagnoses Posterior left knee pain M25.562 Side effect of medication T88.7XXA Head ache R51.9 Assessment & Plan Assessment & Plan (1) Posterior left knee pain: Code(s): M25.562 - Pain in left knee Category: Medical (2) Side effect of medication: Code(s): T88.7XXA - Unspecified adverse effect of drug or medicament, initial encounter Category: Medical (3) Head ache: Code(s): R51.9 - Headache, unspecified Category: Medical Plan . Orders: Orders US drain soft tissue w imaging Today M25.562 - Pain in left knee
== END 2025-09-01 13:16 | disposition home or self-care (01) ==
LOC: HO.HMCC 12:27
PROVIDERS: Visit Provider Nurse Practitioner Family
DX: M25.562 Pain in left knee (principal); T88.7XXA Unspecified adverse effect of drug or medicament, initial encounter; R51.9 Headache, unspecified

== ENCOUNTER → 2025-09-01 12:26 | Outpatient (BNVA) | payer MEDICARE, SELFPAY | PROVIDERS: Visit Provider Nurse Practitioner Family | DX: Z09 Encounter for follow-up examination after completed treatment for conditions other than malignant neoplasm (principal); T88.7XXA Unspecified adverse effect of drug or medicament, initial encounter | CPT/HCPCS: 99212 ==